=== PATIENT | female | born 1950 | race Caucasian/White ===

== ENCOUNTER 2017-04-01 09:52 | Outpatient (RCR) | payer MEDICARE ==
[~2017-04-01] VITALS: Ht 162.6 cm; Wt 56.7 kg
[~2017-04-01 09:52] MED LIST: ALPR.25T PO; ALPR.5T PO; ALPR0.5T7 PO; AMLO10TA PO; AMLO5TAB2 PO; AMOX-355 PO; ASP325T PO; ASPI-892 PO; AZIT500T2 PO; Amlodipine Besylate PO; CALC-408 PO; CHOL100011 PO; CLON1PAT15; CLON1PAT16 TD; CLON1PAT22 TD; ENLP10T PO; EPIN0.3P3 IM; EST.625T PO; ESTR0.5T PO; FAMO20TA5 PO; FENO145T2 PO; FENO145T20 PO; FLDR.1T PO; FLUO20CA25 PO; FLUT16SP22 NS; Fluconazole PO; GEMF600T3 PO; GLYB5TAB6 PO; HYDR-3812 PO; HYDR2TAB51; LINA5TAB PO; LIPA1CAP25 PO; LNS30CCR; LOSA1TAB20 PO; LOSA1TAB3 PO; METF500T4 PO; METO-370 PO; METO100T5 PO; MORP15TA PO; MTF500T PO; MTP50T PO; NYST1000; OMEG1CAP PO; ONDA4TAB11 PO; ONDA8TAB12 PO; OXC20TCR; OXYC-471 PO; PANCREATIC ENZYME; PARO10TA21 PO; POTA10TA10 PO; POTA10TA6 PO; POTA8CAP9 PO; PRD20T PO; PRED20TA PO; RIZA10TA25 PO; SENN-20 PO; SENN1TAB76; TRAJENTA; TRAM50TA2 PO
[2017-06-03] MEDS ORDERED: FLUT9.9S NSEACH (15:07)
[2017-06-03] MEDS ORDERED: AZIT250T12 PO (15:07)
== END 2017-06-30 | disposition home or self-care (01) ==
LOC: DSME 09:52
DX: E11.65 Type 2 diabetes mellitus with hyperglycemia (principal); E11.21 Type 2 diabetes mellitus with diabetic nephropathy; E66.9 Obesity, unspecified; I10 Essential (primary) hypertension

== ENCOUNTER 2017-06-03 12:54 | Emergency (ER) | payer MEDICARE ==
[~2017-06-03] VITALS: Ht 162.6 cm; Wt 56.7 kg
[2017-06-03 13:52] LABS: BASOPHILS % (AUTO) 0 % (0-10); EOSINOPHILS # (AUTO) 0.2 10^3/uL (0.0-0.3); EOSINOPHILS % (AUTO) 5 % (0-10); LYMPHOCYTES # (AUTO) 2.1 X 10^3 (1.0-4.0); LYMPHOCYTES % (AUTO) 41 % (12-44); MEAN CORPUSCULAR HEMOGLOBIN 27 PG (25-34); MEAN CORPUSCULAR HGB CONC 33 G/DL (32-36); MEAN CORPUSCULAR VOLUME 83 FL (80-99); MEAN PLATELET VOLUME 11.4 FL (7.4-10.4); MONOCYTES # (AUTO) 0.5 X 10^3 (0.0-1.0); MONOCYTES % (AUTO) 9 % (0-12); NEUTROPHILS # (AUTO) 2.2 X 10^3 (1.8-7.8); NEUTROPHILS % (AUTO) 44 % (42-75); PLATELET COUNT 174 10^3/uL (130-400); RED BLOOD COUNT 4.52 10^6/uL (4.35-5.85); RED CELL DISTRIBUTION WIDTH 14.9 % (10.0-14.5)
--- NOTE | 2017-06-03 13:53 | Diagnostic Imaging Report ---
PROCEDURE: US Carotid Duplex Bilateral. TECHNIQUE: Multiple real-time grayscale images were obtained over the carotid arteries in various projections bilaterally. Additional duplex Doppler and color Doppler images were also obtained. INDICATION: Left hand numbness, history of TIA. COMPARISON: 06/22/2012. DISCUSSION: Sonographic evaluation of the common and internal carotid arteries and bilateral vertebral arteries was performed with a linear transducer. Images were assessed for grayscale appearance, spectral and color Doppler blood flow. No significant plaque identified within either carotid bifurcation. Normal flow velocities are present within the bilateral internal and external carotid arteries. Normal antegrade flow within the bilateral vertebral arteries. IMPRESSION: 1. The bilateral carotid bifurcations remain widely patent, stable. Dictated by: Dictated on workstation # [id number]
[2017-06-03 13:56] LABS: BILIRUBIN,URINE NEGATIVE (NEGATIVE); KETONES,URINE NEGATIVE (NEGATIVE); LEUKOCYTE ESTERASE ,URINE 1+ (NEGATIVE); NITRITE,URINE NEGATIVE (NEGATIVE); PH,URINE 5 (5-9); PROTEIN,URINE NEGATIVE (NEGATIVE); UROBILINOGEN,URINE NORMAL (NORMAL)
--- NOTE | 2017-06-03 13:56 | ED Neurological Problem ---
General Chief Complaint: Neurological Problems Stated Complaint: LT HAND NUMB/UPPER LIP NUMB/SPEECH DIFF Nursing Triage Note: ARRIVED VIA AMB TO ROOM 07 WITH COMPLAINTS OF LEFT HAND AND LIP NUMBESS/ TINGLING STARTING X2 DAYS AGO. Nursing Sepsis Screen: No Definite Risk Source: patient, old records (Prior imaging reports reviewed) Exam Limitations: no limitations History of Present Illness Time seen by provider: 12:59 Initial Comments This pleasant 66-year-old lady presents to the emergency room with complaints of left hand numbness intermittently over the past 2 days and left upper lip numbness. Symptoms were mild on Wednesday, then improved yesterday, then worsened today. She has had some very subtle difficulty with word finding as well. Wednesday she also had a severe headache and some "wavy vision" peripherally. She reports having some headaches all summer that seem to be weather related. She has history of prior TIA and CVA as well as migraines. She takes aspirin 81 mg daily. She also has a prior history of hypothyroidism for which she took levothyroxin. This seems to have resolved and she no longer takes levothyroxin. Allergies and Home Medications Allergies Coded Allergies: canagliflozin (Verified Allergy, Severe, ANAPHYLAXIS, 07/22/15) iodine (Unverified Adverse Reaction, Severe, migraine headache, 07/11/10) lorazepam (Verified Adverse Reaction, Severe, ELEVATED BLOOD PRESSURE, ) zolpidem (Verified Adverse Reaction, Severe, SLEEP WALK, 07/22/15) codeine (Unverified Adverse Reaction, Mild, INCREASED ACTIVITY, 08/13/10) erythromycin base (Unverified Adverse Reaction, Mild, NAUSEA, 08/13/10) Heparin Analogues (Unverified Adverse Reaction, Unknown, 08/13/10) Home Medications Alprazolam 0.5 Mg Tablet, 0.5 MG PO HS, (Reported) Alprazolam 0.5 Mg Tablet, 0.25 MG PO AM, (Reported) TAKES 1/2 (0.5MG) TABLET Alprazolam 0.5 Mg Tablet, 0.5 MG PO DAILY PRN for ANXIETY, (Reported) TAKES 1/2 TABLET EVERY MORNING AND 1 TABLET AT BEDTIME, CAN TAKE AN ADDITIONAL TABLET DAILY NEEDED Amlodipine Besylate 5 Mg Tablet, 2.5 MG PO HS, (Reported) TAKES 1/2 (5MG) TABLET Amlodipine Besylate 5 Mg Tablet, 5 MG PO DAILY, (Reported) Azithromycin 250 Mg Tablet, 250 MG PO UD, #6 TAKE 2 TABLETS ON DAY ONE THEN TAKE 1 TABLET DAILY FOR FOUR MORE DAYS Prescribed by: SOPHIA CHANEL on 06/03/17 1507 Clonidine 1 Each Patch.tdwk, 0.3 MG TD WEEKLY ON WEDNESDAY, (Reported) Epinephrine 0.3 Mg/0.3 Ml Auto.injct, IM UD PRN for ANAPHYLAXIS, (Reported) Estradiol 0.5 Mg Tablet, 0.5 MG PO DAILY, (Reported) Fludrocortisone Acetate 0.1 Mg Tab, 0.1 MG PO BID, #60 Ref 3 Prescribed by: DECLAN SANTOS on 07/29/15 0910 Fluoxetine HCl 20 Mg Capsule, 20 MG PO DAILY@ 1200, (Reported) Fluticasone Propionate 9.9 Ml Bosler.susp, 2 SPR NSEACH DAILY, #1 Ref 5 Prescribed by: SOPHIA CHANEL on 06/03/17 1507 Gemfibrozil 600 Mg Tablet, 600 MG PO BIDAC, #60 Ref 5 Prescribed by: DECLAN SANTOS on 07/29/15 0910 Glyburide 5 Mg Tablet, 2.5 MG PO AM & 1200, (Reported) Glyburide 5 Mg Tablet, 5 MG PO WITH EVENING MEAL, (Reported) Hydrocodone/Acetaminophen 1 Each Tablet, 1-2 EACH PO Q6H PRN for PAIN, #15 Prescribed by: JENNY SUN on 05/22/16 0009 Lipase/Protease/Amylase 1 Each Capsule.dr, 10,000 UNIT PO QID, (Reported) Metformin Hcl 500 Mg Tablet, 1,000 MG PO AM & EVENING, (Reported) Metformin Hcl 500 Mg Tablet, 500 MG PO DAILY @ 1200, (Reported) Metoprolol Succinate 100 Mg Tab.sr.24h, 50 MG PO BID, (Reported) TAKES 1/2 (100MG) TABLET Morphine Sulfate 15 Mg Tablet, 7.5 MG PO Q3H PRN for ABDOMINAL PAIN, #90 Ref 0 Prescribed by: DECLAN SANTOS on 07/29/15 0910 [place]-3 Acid Ethyl Esters 1 Gm Capsule, 1 GM PO QID, #20 Ref 0 Prescribed by: DECLAN SANTOS on 07/29/15 0910 Ondansetron 4 Mg Tab.rapdis, 4 MG PO Q6H PRN for NAUSEA/VOMITING, #8 Prescribed by: JENNY SUN on 05/22/168 Ondansetron HCl 8 Mg Tablet, 8 MG PO Q8H PRN for NAUSEA, (Reported) Potassium Chloride 10 Meq Tablet.er, 10 MEQ PO NOON & EVENING, (Reported) Prednisone 20 Mg Tab, 40 MG PO DAILY, #10 Ref 0 Prescribed by: JENNY SUN on 05/22/168 Sennosides/Docusate Sodium 1 Each Tablet, 1 EA PO DAILY, #30 Ref 2 Prescribed by: DECLAN SANTOS on 07/29/15 0910 Constitutional: no symptoms reported Eyes: See HPI Ears, Nose, Mouth, Throat: see HPI Respiratory: no symptoms reported Cardiovascular: no symptoms reported Gastrointestinal: no symptoms reported Genitourinary: no symptoms reported : No Musculoskeletal: no symptoms reported Skin: no symptoms reported Psychiatric/Neurological: See HPI Endocrine: No Symptoms Reported Hematologic/Lymphatic: No Symptoms Reported Past Ecbwqrv-Zjdjbo-Bistuj Hx Patient Social History Alcohol Use: Denies Use Recreational Drug Use: No Smoking Status: Never a Smoker Recent Foreign Travel: No Contact w/Someone Who Travel: No Recent Infectious Disease Expo: No Recent Hopitalizations: Yes Immunizations Up To Date Tetanus Booster (TDap): More than 5yrs Date of Pneumonia Vaccine: Aug 01, 2012 Seasonal Allergies Seasonal Allergies: Yes Surgeries HX Surgeries: Yes (HYSTERECTOMY, thoracentesis, gallbladder, ) Surgeries: Appendectomy, Gallbladder, Hysterectomy, Pancreatic Respiratory Hx Respiratory Disorders: No Cardiovascular Hx Cardiac Disorders: Yes Cardiac Disorders: Hypertension Neurological Hx Neurological Disorders: Yes Neurological Disorders: Headaches /Migraines, Stroke, TIA 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 System Hx 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 Disorders: No 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 Genitourinary Hx Genitourinary Disorders: No Genitourinary Disorders: Bladder Infection Gastrointestinal Hx Gastrointestinal Disorders: Yes Gastrointestinal Disorders: Pancreatitis Musculoskeletal Hx Musculoskeletal Disorders: No Endocrine Hx Endocrine Disorders: Yes Endocrine Disorders: Diabetes, Non-Insulin dep HEENT HX ENT Disorders: No Cancer Hx Cancer: No Psychosocial Hx Psychiatric Problems: Yes Behavioral Health Disorders: Anxiety Integumentary HX Skin/Integumentary Disorder: No Blood Transfusions Hx Blood Disorders: No Family Medical History Significant Family History: No Pertinent Family Hx, CVA Family Medial History: Physical Exam Vital Signs Vital Sign - Last 12Hours 06/03/17 13:02 Temp 98.0 Pulse 80 Resp 16 B/P (MAP) 178/82 Pulse Ox 100 O2 Delivery Room Air Capillary Refill : Less Than 3 Seconds General Appearance: WD/WN, no apparent distress HEENT: PERRL/EOMI, normal ENT inspection, TMs normal, pharynx normal Neck: supple, normal inspection, No carotid bruit Respiratory: lungs clear, normal breath sounds, no respiratory distress, no accessory muscle use Cardiovascular: regular rate, rhythm, no edema, no murmur Gastrointestinal: normal bowel sounds, non tender, soft Extremities: normal inspection, no pedal edema Neurologic/Psychiatric: corporate director II-XII nml as tested, alert, normal mood/affect, oriented x 3, No motor weakness, sensory deficit (Slight sensory deficit in the left fingers) Crainal Nerves: normal hearing, normal speech, PERRL Coordination/Gait: normal finger to nose, normal gait Motor/Sensory: no motor deficit, sensory deficit (Slight in the left fingers) Skin: normal color, warm/dry Progress/Results/Core Measures Results/Orders Lab Results Laboratory Tests Test 06/03/17 13:45 06/03/17 13:50 Range/Units White Blood Count 5.0 4.3-11.0 10^3/uL Red Blood Count 4.52 4.35-5.85 10^6/uL Hemoglobin 12.3 11.5-16.0 G/DL Hematocrit 37 35-52 % Mean Corpuscular Volume 83 80-99 FL Mean Corpuscular Hemoglobin 27 25-34 PG Mean Corpuscular Hemoglobin Concent 33 32-36 G/DL Red Cell Distribution Width 14.9 H 10.0-14.5 % Platelet Count 174 130-400 10^3/uL Mean Platelet Volume 11.4 H 7.4-10.4 FL Neutrophils (%) (Auto) 44 42-75 % Lymphocytes (%) (Auto) 41 12-44 % Monocytes (%) (Auto) 9 0-12 % Eosinophils (%) (Auto) 5 0-10 % Basophils (%) (Auto) 0 0-10 % Neutrophils # (Auto) 2.2 1.8-7.8 X 10^3 Lymphocytes # (Auto) 2.1 1.0-4.0 X 10^3 Monocytes # (Auto) 0.5 0.0-1.0 X 10^3 Eosinophils # (Auto) 0.2 0.0-0.3 10^3/uL Basophils # (Auto) 0.0 0.0-0.1 10^3/uL Sodium Level 140 135-145 MMOL/L Potassium Level 3.7 3.6-5.0 MMOL/L Chloride Level 101 98-107 MMOL/L Carbon Dioxide Level 24 21-32 MMOL/L Anion Gap 15 H 5-14 MMOL/L Blood Urea Nitrogen 18 7-18 MG/DL Creatinine 0.84 0.60-1.30 MG/DL Estimat Glomerular Filtration Rate > 60 BUN/Creatinine Ratio 21 Glucose Level 144 H 70-105 MG/DL Calcium Level 9.4 8.5-10.1 MG/DL Magnesium Level 1.1 L 1.8-2.4 MG/DL Total Bilirubin 0.3 0.1-1.0 MG/DL Aspartate Amino Transf (AST/SGOT) 22 5-34 U/L Alanine Aminotransferase (ALT/SGPT) 31 0-55 U/L Alkaline Phosphatase 82 40-136 U/L Total Protein 6.9 6.4-8.2 GM/DL Albumin 4.0 3.2-4.5 GM/DL TSH [place] Testing 0.70 0.35-4.94 UIU/ML Urine Color YELLOW Urine Clarity CLEAR Urine pH 5 5-9 Urine Specific [place] 1.010 L 1.016-1.022 Urine Protein NEGATIVE NEGATIVE Urine Glucose (UA) NEGATIVE NEGATIVE Urine Ketones NEGATIVE NEGATIVE Urine Nitrite NEGATIVE NEGATIVE Urine Bilirubin NEGATIVE NEGATIVE Urine Urobilinogen NORMAL NORMAL MG/DL Urine Leukocyte Esterase 1+ H NEGATIVE Urine RBC (Auto) NEGATIVE NEGATIVE Urine RBC NONE /HPF Urine WBC 0-2 /HPF Urine Squamous Epithelial Cells 5-10 /HPF Urine Crystals PRESENT H /LPF Urine Calcium Oxalate Crystals RARE H /LPF Urine Bacteria TRACE /HPF Urine Casts PRESENT /LPF Urine Hyaline Casts 5-10 H /LPF Urine Mucus SMALL H /LPF Urine Culture Indicated YES Micro Results Microbiology 06/03/17 Urine Culture - Preliminary, Resulted My Orders Orders - SOPHIA MONTE MD Cbc With Automated Diff (06/03/17 13:24) Comprehensive Metabolic Panel (06/03/17 13:24) Magnesium (06/03/17 13:24) Thyroid Analyzer (06/03/17 13:24) Ua Culture If Indicated (06/03/17 13:24) Saline Lock/Iv-Start (06/03/17 13:24) Us Carotid Hector Complete [id number] (06/03/17 13:24) Ct Head Wo (06/03/17 13:35) Urine Culture (06/03/17 13:50) Vital Signs/I&O Vital Sign - Last 12Hours 06/03/17 06/03/17 13:02 15:25 Temp 98.0 Pulse 80 78 Resp 16 16 B/P (MAP) 178/82 Pulse Ox 100 98 O2 Delivery Room Air Blood Pressure Mean: 114 Progress Note #1: Progress Note Labs were unremarkable. I discussed further workup with the patient including doing carotid ultrasound and CT of the head versus MRI. Patient has anxiety issues with MRI and wishes to do a CT and carotid ultrasound. Progress Note #2: Progress Note Sphenoid sinusitis was discovered but no evidence of intracranial hemorrhage or CVA. Carotid arteries were patent. Patient would like a prescription for azithromycin. Although I feel she needs a more prolonged course of therapy, she is very leery to use any other antibiotic due to intolerance of many medications. She knows she tolerates azithromycin. Diagnostic Imaging Diagonstic Imaging: Ultrasound Plain Films/CT/US/NM/MRI: other (Carotid arteries) Comments NAME: [facility] REC#: [id number] PT STATUS: REG ER : 1950 PHYSICIAN: SOPHIA MONTE MD ADMIT DATE: 06/03/17/ER Draft Date of Exam:06/03/17 US CAROTID HECTOR COMPLETE [id number] PROCEDURE: US Carotid Duplex Bilateral. TECHNIQUE: Multiple real-time grayscale images were obtained over the carotid arteries in various projections bilaterally. Additional duplex Doppler and color Doppler images were also obtained. INDICATION: Left hand numbness, history of TIA. COMPARISON: 06/22/2012. DISCUSSION: Sonographic evaluation of the common and internal carotid arteries and bilateral vertebral arteries was performed with a linear transducer. Images were assessed for grayscale appearance, spectral and color Doppler blood flow. No significant plaque identified within either carotid bifurcation. Normal flow velocities are present within the bilateral internal and external carotid arteries. Normal antegrade flow within the bilateral vertebral arteries. IMPRESSION: 1. The bilateral carotid bifurcations remain widely patent, stable. Dictated on workstation # [id number] Dict: 06/03/17 1351 Trans: 06/03/17 1352 HOLLIS [id number] Interpreted by: JESSE JONES MD Diagonstic Imaging: CT Plain Films/CT/US/NM/MRI: head Comments NAME: [facility] REC#: [id number] PT STATUS: DEP ER : 1950 PHYSICIAN: SOPHIA MONTE MD ADMIT DATE: 06/03/17/ER Signed Date of Exam: 06/03/17 CT HEAD WO PROCEDURE: CT head without contrast. TECHNIQUE: Multiple contiguous axial images were obtained through the brain without the use of intravenous contrast. INDICATION: Left hand numbness. FINDINGS: There is no intracranial hemorrhage, edema or mass effect. There is a periventricular and deep white matter hypodensities compatible with chronic microvascular ischemic changes. There is no extra-axial fluid collection seen. No hydrocephalus. The calvarium appears unremarkable. The left sphenoidal sinus demonstrates complete opacification. IMPRESSION: 1. No intracranial hemorrhage. Chronic ischemic changes. 2. Near complete opacification of the left sphenoidal sinus suggestive of sinusitis. Dictated by: Dictated on workstation # [id number] Dict: 06/03/17 1409 Trans: 06/03/17 1614 Interpreted by: MANDY RUIZ MD Electronically signed by: MANDY RUIZ MD 06/03/17 1614 Departure Impression Impression: Primary Impression: Paresthesia of left upper extremity Additional Impressions: Facial paresthesia Sphenoidal sinusitis Qualified Codes: J01.30 - Acute sphenoidal sinusitis, unspecified Hypertension Qualified Codes: I10 - Essential (primary) hypertension Disposition: 01 HOME, SELF-CARE Condition: Stable Departure-Patient Inst. Decision time for Depature: 14:55 Referrals: DECLAN SANTOS MD (PCP/Family) Primary Care Physician Patient Instructions: Paresthesias (DC), Sinusitis in Adults Add. Discharge Instructions: Follow-up with Dr. Santos as soon as possible. You may need a more prolonged course of antibiotic therapy for your sinusitis with a different antibiotic such as doxycycline or amoxicillin. If you're symptoms persist or worsen, consider discussing MRI of the brain and cervical spine with Dr. Santos. Return to care promptly if symptoms acutely worsen. If you develop symptoms suspicious of stroke, present to the emergency room immediately or call 911 as ability to treat is time dependent. All discharge instructions reviewed with patient and/or family. Voiced understanding. Scripts Fluticasone Propionate (Flonase Allergy Relief) 9.9 Ml Bosler.susp 2 SPR NSEACH DAILY, #1 SPRAY 5 Refills Prov: SOPHIA MONTE MD 06/03/17 Azithromycin (Azithromycin) 250 Mg Tablet 250 MG PO UD, #6 TAB TAKE 2 TABLETS ON DAY ONE THEN TAKE 1 TABLET DAILY FOR FOUR MORE DAYS Prov: SOPHIA MONTE MD 06/03/17 Copy Copies To 1: DECLAN SANTOS MD, JOSHUA T MD Jun 03, 2017 13:56
[2017-06-03 14:10] LABS: ALANINE AMINOTRANSFERASE 31 U/L (0-55); ANION GAP 15 MMOL/L (5-14); ASPARTATE AMINO TRANSFERASE 22 U/L (5-34); BILIRUBIN,TOTAL 0.3 MG/DL (0.1-1.0); BLOOD UREA NITROGEN 18 MG/DL (7-18); BUN/CREATININE RATIO 21; CALCIUM 9.4 MG/DL (8.5-10.1); CARBON DIOXIDE 24 MMOL/L (21-32); CHLORIDE 101 MMOL/L (98-107); CREATININE SERUM 0.84 MG/DL (0.60-1.30); GFR ESTIMATED > 60; GLUCOSE 144 MG/DL (70-105); MAGNESIUM 1.1 MG/DL (1.8-2.4); POTASSIUM 3.7 MMOL/L (3.6-5.0); SODIUM 140 MMOL/L (135-145); TOTAL PROTEIN 6.9 GM/DL (6.4-8.2)
[2017-06-03 14:11] LABS: CALCIUM OXALATE CRYSTALS,UR RARE /LPF; WBC,URINE 0-2 /HPF
--- NOTE | 2017-06-03 14:21 | Diagnostic Imaging Report ---
PROCEDURE: CT head without contrast. TECHNIQUE: Multiple contiguous axial images were obtained through the brain without the use of intravenous contrast. INDICATION: Left hand numbness. FINDINGS: There is no intracranial hemorrhage, edema or mass effect. There is a periventricular and deep white matter hypodensities compatible with chronic microvascular ischemic changes. There is no extra-axial fluid collection seen. No hydrocephalus. The calvarium appears unremarkable. The left sphenoidal sinus demonstrates complete opacification. IMPRESSION: 1. No intracranial hemorrhage. Chronic ischemic changes. 2. Near complete opacification of the left sphenoidal sinus suggestive of sinusitis. Dictated by: Dictated on workstation # [id number]
[2017-06-03] MEDS ORDERED: FLUT9.9S NSEACH (15:07)
[2017-06-03] MEDS ORDERED: AZIT250T12 PO (15:07)
[2017-06-03 15:25] VITALS: BP 194/95
== END 2017-06-03 15:25 | disposition home or self-care (01) ==
LOC: EDUNIT# 12:54 → ER 12:56
DX: R20.2 Paresthesia of skin (principal); J01.30 Acute sphenoidal sinusitis, unspecified; I10 Essential (primary) hypertension; E11.9 Type 2 diabetes mellitus without complications; Z79.84 Long term (current) use of oral hypoglycemic drugs; Z79.899 Other long term (current) drug therapy
CPT/HCPCS: 36415; 70450; 80053; 81000; 83735; 84443; 85025; 87088; 93880

== ENCOUNTER → 2017-06-21 | Outpatient (CLI) | payer MEDICARE ==
[~2017-06-21] MED LIST changes: +AZIT250T5 PO; +FLUT9.9S NSEACH; +METO-272 PO; -METO-370 PO
--- NOTE | 2017-06-21 17:17 | Diagnostic Imaging Report ---
EXAMINATION: Paranasal sinuses. INDICATION: Chronic sinusitis. FINDINGS: There are no previous paranasal sinus exams available for comparison. The CT head exam performed on 06/03/2017 did note severe left sphenoid sinusitis. That finding is difficult to appreciate on this exam. The frontal and maxillary sinuses are clear and well aerated. There is no fracture or acute bony abnormality identified. As noted on the CT head exam, there is hyperostosis frontalis. IMPRESSION: 1. The severe left sphenoid sinusitis seen on the CT exam is difficult to appreciate on this exam. The maxillary and frontal sinuses where visualized are clear. 2. If further imaging is desired, then CT of the sinuses would be recommended. Dictated by: Dictated on workstation # [id number]
== END ==
LOC: RAD 15:15
PROVIDERS: ATTEND Nurse Practitioner Family
DX: J32.3 Chronic sphenoidal sinusitis (principal)
CPT/HCPCS: 70220

== ENCOUNTER 2017-12-26 14:20 | Inpatient (IN) | payer MEDICARE ==
[~2017-12-26] VITALS: Ht 162.6 cm; Wt 57.2 kg
[~2017-12-26 14:20] MED LIST changes: +ACHD5005 PO; +AZIT250T12 PO; -AZIT250T5 PO; -HYDR-3812 PO; -METO-272 PO; +METO-370 PO
--- OUTSIDE RECORDS SUMMARY | 2017-12-26 14:29 | XMS REPORT | Continuity of Care Document ---
Author Author [facility] Organization [facility] Address Unknown Phone Unavailable Allergies Active Description Code Type Severity Reaction Onset Reported/Identified Relationship to Patient Clinical Status Yes iodine [id number] Drug Allergy Severe migraine headac 07/11/2010 Yes lorazepam [id number] Drug Allergy Severe N/A 08/12/2010 Yes zolpidem [id number] Drug Allergy Severe N/A 08/12/2010 Yes codeine [id number] Drug Allergy Mild INCREASED ACTIV 08/13/2010 Yes erythromycin base [id number] Drug Allergy Mild NAUSEA 08/13/2010 Yes Heparin Analogues [id number] Drug Allergy Unknown N/A 08/13/2010 Yes canagliflozin [id number] Drug Allergy Unknown ANAPHYLAXIS 07/21/2015 Yes canagliflozin [id number] Drug Allergy Severe ANAPHYLAXIS 07/22/2015 Yes lorazepam [id number] Drug Allergy Severe ELEVATED BLOOD 07/22/2015 Yes zolpidem [id number] Drug Allergy Severe SLEEP WALK 07/22/2015 Medications There is no data. Problems Date Dx Coded Attending Type Code Diagnosis Diagnosed By 07/24/2010 Ot 250.00 07/24/2010 Ot 272.1 07/24/2010 Ot 275.2 07/24/2010 Ot 276.1 07/24/2010 Ot 276.8 07/24/2010 Ot 285.9 07/24/2010 Ot 287.5 07/24/2010 Ot 401.9 07/24/2010 Ot 486 07/24/2010 Ot 518.81 07/24/2010 Ot 560.1 07/24/2010 Ot 577.0 07/24/2010 Ot 593.9 07/24/2010 Ot V45.77 07/24/2010 Ot V57.1 07/24/2010 Ot V57.21 08/18/2010 Ot 041.04 08/18/2010 Ot 250.00 08/18/2010 Ot 276.51 08/18/2010 Ot 276.8 08/18/2010 Ot 311 08/18/2010 Ot 401.9 08/18/2010 Ot 575.0 08/18/2010 Ot 577.0 08/18/2010 Ot 599.0 06/22/2012 Ot 250.00 06/22/2012 Ot 272.4 06/22/2012 Ot 401.9 06/22/2012 Ot 434.91 06/22/2012 Ot V03.82 03/20/2015 Ot 276.8 03/20/2015 Ot 285.9 03/20/2015 Ot 575.10 03/20/2015 Ot 577.0 03/20/2015 Ot 787.01 03/20/2015 Ot 784.0 03/24/2015 DANIELLE PORTER, DECLAN Castaneda Ot 250.00 DIAB EMIL WO COMPL, TYPE II OR UNSPEC TY 03/24/2015 DECLAN SANTOS MD Ot 272.4 HYPERLIPIDEMIA NEC/NOS 03/24/2015 DECLAN SANTOS MD Ot 276.1 HYPOSMOLALITY 03/24/2015 DECLAN SANTOS MD Ot 276.8 HYPOPOTASSEMIA 03/24/2015 DECLAN SANTOS MD Ot 300.00 ANXIETY STATE NOS 03/24/2015 DECLAN SANTOS MD Ot 401.9 HYPERTENSION NOS 03/24/2015 DECLAN SANTOS MD Ot 473.2 CHR ETHMOIDAL SINUSITIS 03/24/2015 DECLAN SANTOS MD Ot 535.00 ACUTE GASTRITIS, W/O MENTION OF HEMORRHA 03/24/2015 DECLAN SANTOS MD Ot 573.0 CHR PASSIV CONGEST LIVER 03/24/2015 DECLAN SANTOS MD Ot 577.0 ACUTE PANCREATITIS 03/24/2015 DECLAN SANTOS MD Ot 577.2 PANCREAT CYST/PSEUDOCYST 03/24/2015 DECLAN SANTOS MD Ot 577.8 PANCREATIC DISEASE NEC 03/24/2015 DECLAN SANTOS MD Ot V12.54 PERSONAL HX OF TIA, CEREBRAL INFARCTION 04/01/2015 TATE PORTER, SHONDA Raymundo Ot 577.2 04/01/2015 TATE PORTER, SHONDA Raymundo Ot 577.2 04/01/2015 TATE PORTER, SHONDA Raymundo Ot 577.2 04/03/2015 TATE PORTER, SHONDA Raymundo Ot 577.2 04/03/2015 SHONDA YBARRA MD Ot 577.2 04/03/2015 TATE PORTER, SHONDA Raymundo Ot 577.2 04/04/2015 TATE PORTER, SHONDA Raymundo Ot 577.2 04/09/2015 TATE PORTER, SHONDA Raymundo Ot 577.2 04/24/2015 TATE PORTER, SHONDA Raymundo Ot 577.2 04/24/2015 TATE PORTER, SHONDA Raymundo Ot 577.2 04/26/2015 TATE PORTER, SHONDA Raymundo Ot 577.2 04/26/2015 TATE PORTER, SHONDA Raymundo Ot 577.2 05/22/2015 DECLAN SANTOS MD Ot 722.52 05/23/2015 DECLAN SANTOS MD Ot 722.52 05/30/2015 ERICA OSBORNE Ot 787.20 DYSPHAGIA, UNSPECIFIED 05/30/2015 ERICA OSBORNE Ot 995.1 ANGIONEUROTIC EDEMA 06/03/2015 DECLAN SANTOS MD Ot 250.02 DIAB EMIL WO COMPL, TYPE II OR UNSPEC TY 06/03/2015 DECLAN SANTOS MD Ot 272.4 HYPERLIPIDEMIA NEC/NOS 06/03/2015 DECLAN SANTOS MD Ot 300.00 ANXIETY STATE NOS 06/03/2015 DECLAN SANTOS MD Ot 401.9 HYPERTENSION NOS 06/03/2015 DECLAN SANTOS MD Ot 995.0 OTHER ANAPHYLACTIC REACTION 06/03/2015 DECLAN SANTOS MD Ot E849.0 ACCIDENT IN HOME 06/03/2015 DECLAN SANTOS MD Ot E932.3 ADV EFF INSULIN/ANTIDIAB 07/15/2015 NADEEM ABARCA DO Ot 272.4 HYPERLIPIDEMIA NEC/NOS 07/15/2015 NADEEM ABARCA DO Ot 285.9 ANEMIA NOS 07/15/2015 NADEEM ABARCA DO Ot 287.5 THROMBOCYTOPENIA NOS 07/15/2015 NADEEM ABARCA DO Ot 401.9 HYPERTENSION NOS 07/15/2015 NADEEM ABARCA DO Ot 784.0 HEADACHE 07/29/2015 DECLAN SANTOS MD Ot 250.00 DIAB EMIL WO COMPL, TYPE II OR UNSPEC TY 07/29/2015 DECLAN SANTOS MD Ot 266.2 B-COMPLEX DEFIC NEC 07/29/2015 DECLAN SANTOS MD Ot 272.0 PURE HYPERCHOLESTEROLEM 07/29/2015 DANIELLE PORTER, DECLAN Castaneda Ot 272.1 PURE HYPERGLYCERIDEMIA 07/29/2015 DECLAN SANTOS MD Ot 272.4 HYPERLIPIDEMIA NEC/NOS 07/29/2015 DECLAN SANTOS MD Ot 276.8 HYPOPOTASSEMIA 07/29/2015 DECLAN SANTOS MD Ot 285.9 ANEMIA NOS 07/29/2015 DECLAN SANTOS MD Ot 287.5 THROMBOCYTOPENIA NOS 07/29/2015 DECLAN SANTOS MD Ot 298.9 PSYCHOSIS NOS 07/29/2015 DECLAN SANTOS MD Ot 401.9 HYPERTENSION NOS 07/29/2015 DECLAN SANTOS MD Ot 473.2 CHR ETHMOIDAL SINUSITIS 07/29/2015 DECLAN SANTOS MD Ot 473.3 CHR SPHENOIDAL SINUSITIS 07/29/2015 DECLAN SANTOS MD Ot 577.0 ACUTE PANCREATITIS 07/29/2015 DECLAN SANTOS MD Ot 577.2 PANCREAT CYST/PSEUDOCYST 07/29/2015 DECLAN SANTOS MD Ot 784.0 HEADACHE 07/29/2015 DECLAN SANTOS MD Ot V12.54 PERSONAL HX OF TIA, CEREBRAL INFARCTION 07/29/2015 DECLAN SANTOS MD Ot V12.79 PERSONAL HISTORY OTH SPEC DIGESTIVE SYST 09/05/2015 TATE PORTER, SHONDA Raymundo Ot 577.2 09/05/2015 TATE PORTER, SHONDA Raymundo Ot 577.2 09/05/2015 DECLAN SANTOS MD Ot 722.52 09/30/2015 ROSIE RAMOS MD Ot E03.9 09/30/2015 ROSIE RAMOS MD Ot E78.2 09/30/2015 ROSIE RAMOS MD Ot I10 09/30/2015 ROSIE RAMOS MD Ot I63.9 10/03/2015 ROSIE RAMOS MD Ot E03.9 10/03/2015 ROSIE RAMOS MD Ot E78.2 10/03/2015 ROSIE RAMOS MD Ot I10 10/03/2015 ROSIE RAMOS MD Ot I63.9 05/22/2016 TATE PORTER, SHONDA Raymundo Ot 577.2 PANCREAT CYST/PSEUDOCYST 05/22/2016 TATE PORTER, SHONDA Raymundo Ot 577.2 PANCREAT CYST/PSEUDOCYST 05/22/2016 DANIELLE PORTER, DECLAN Castaneda Ot 722.52 LUMB/LUMBOSAC DISC DEGEN 05/22/2016 RACHEL PORTER, ROSIE Sultana Ot E03.9 HYPOTHYROIDISM, UNSPECIFIED 05/22/2016 RACHEL PORTER, ROSIE Sultana Ot E78.2 MIXED HYPERLIPIDEMIA 05/22/2016 ROSIE RAMOS MD Ot I10 ESSENTIAL (PRIMARY) HYPERTENSION 05/22/2016 RACHEL PORTER, ROSIE Sultana Ot I63.9 CEREBRAL INFARCTION, UNSPECIFIED 05/22/2016 CORINNE PORTER, JENNY Castaneda Ot M54.16 RADICULOPATHY, LUMBAR REGION 05/22/2016 JENNY SUN MD Ot M54.5 LOW BACK PAIN 05/22/2016 JENNY SUN MD Ot M54.16 RADICULOPATHY, LUMBAR REGION 05/22/2016 JENNY SUN MD Ot M54.5 LOW BACK PAIN 06/24/2016 JENNY SUN MD Ot M54.16 RADICULOPATHY, LUMBAR REGION 06/24/2016 JENNY SUN MD Ot M54.5 LOW BACK PAIN 04/02/2017 OTHER, UNLISTED Ot E11.21 TYPE 2 DIABETES MELLITUS WITH DIABETIC N 04/02/2017 OTHER, UNLISTED Ot E11.65 TYPE 2 DIABETES MELLITUS WITH HYPERGLYCE 04/02/2017 OTHER, UNLISTED Ot E66.9 OBESITY, UNSPECIFIED 04/02/2017 OTHER, UNLISTED Ot I10 ESSENTIAL (PRIMARY) HYPERTENSION 06/03/2017 SOPHIA MONTE MD Ot E11.9 TYPE 2 DIABETES MELLITUS WITHOUT COMPLIC 06/03/2017 SOPHIA MONTE MD, Ot I10 ESSENTIAL (PRIMARY) HYPERTENSION 06/03/2017 SOPHIA MONTE MD Ot J01.30 ACUTE SPHENOIDAL SINUSITIS, UNSPECIFIED 06/03/2017 SOPHIA MONTE MD Ot R20.2 PARESTHESIA OF SKIN 06/03/2017 SOPHIA MONTE MD Ot Z79.84 SOLUTIONS ARCHITECT (CURRENT) USE OF ORAL HYPOGLYC 06/03/2017 SOPHIA MONTE MD Ot Z79.899 OTHER [facility] (CURRENT) DRUG THERAPY 06/16/2017 OTHER, UNLISTED Ot E11.21 TYPE 2 DIABETES MELLITUS WITH DIABETIC N 06/16/2017 OTHER, UNLISTED Ot E11.65 TYPE 2 DIABETES MELLITUS WITH HYPERGLYCE 06/16/2017 OTHER, UNLISTED Ot E66.9 OBESITY, UNSPECIFIED 06/16/2017 OTHER, UNLISTED Ot I10 ESSENTIAL (PRIMARY) HYPERTENSION 06/22/2017 PAULIE MACKENZIE APRN Ot 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 06/30/2017 OTHER, UNLISTED Ot E11.21 TYPE 2 DIABETES MELLITUS WITH DIABETIC N 06/30/2017 OTHER, UNLISTED Ot E11.65 TYPE 2 DIABETES MELLITUS WITH HYPERGLYCE 06/30/2017 OTHER, UNLISTED Ot E66.9 OBESITY, UNSPECIFIED 06/30/2017 OTHER, UNLISTED Ot I10 ESSENTIAL (PRIMARY) HYPERTENSION 07/02/2017 OTHER, UNLISTED Ot E11.21 TYPE 2 DIABETES MELLITUS WITH DIABETIC N 07/02/2017 OTHER, UNLISTED Ot E11.65 TYPE 2 DIABETES MELLITUS WITH HYPERGLYCE 07/02/2017 OTHER, UNLISTED Ot E66.9 OBESITY, UNSPECIFIED 07/02/2017 OTHER, UNLISTED Ot I10 ESSENTIAL (PRIMARY) HYPERTENSION 07/13/2017 PAULIE MACKENZIE APRN Ot 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 Results Test Result Range Complete blood count (CBC) with automated white blood cell (WBC) differential - 06/03/17 13:45 Blood leukocytes automated count (number/volume) 5.0 10*3/uL 4.3-11.0 Blood erythrocytes automated count (number/volume) 4.52 10*6/uL 4.35-5.85 Venous blood hemoglobin measurement (mass/volume) 12.3 g/dL 11.5-16.0 Blood hematocrit (volume fraction) 37 % 35-52 Automated erythrocyte mean corpuscular volume 83 [foz_us] 80-99 Automated erythrocyte mean corpuscular hemoglobin (mass per erythrocyte) 27 pg 25-34 Automated erythrocyte mean corpuscular hemoglobin concentration measurement ( mass/volume) 33 g/dL 32-36 Automated erythrocyte distribution width ratio 14.9 % 10.0-14.5 Automated blood platelet count (count/volume) 174 10*3/uL 130-400 Automated blood platelet mean volume measurement 11.4 [foz_us] 7.4-10.4 Automated blood neutrophils/100 leukocytes 44 % 42-75 Automated blood lymphocytes/100 leukocytes 41 % 12-44 Blood monocytes/100 leukocytes 9 % 0-12 Automated blood eosinophils/100 leukocytes 5 % 0-10 Automated blood basophils/100 leukocytes 0 % 0-10 Blood neutrophils automated count (number/volume) 2.2 10*3 1.8-7.8 Blood lymphocytes automated count (number/volume) 2.1 10*3 1.0-4.0 Blood monocytes automated count (number/volume) 0.5 10*3 0.0-1.0 Automated eosinophil count 0.2 10*3/uL 0.0-0.3 Automated blood basophil count (count/volume) 0.0 10*3/uL 0.0-0.1 Comprehensive metabolic panel - 06/03/17 13:45 Serum or plasma sodium measurement (moles/volume) 140 mmol/L 135-145 Serum or plasma potassium measurement (moles/volume) 3.7 mmol/L 3.6-5.0 Serum or plasma chloride measurement (moles/volume) 101 mmol/L 98-107 Carbon dioxide 24 mmol/L 21-32 Serum or plasma anion gap determination (moles/volume) 15 mmol/L 5-14 Serum or plasma urea nitrogen measurement (mass/volume) 18 mg/dL 7-18 Serum or plasma creatinine measurement (mass/volume) 0.84 mg/dL 0.60-1.30 Serum or plasma urea nitrogen/creatinine mass ratio 21 NRG Serum or plasma creatinine measurement with calculation of estimated glomerular filtration rate > NRG Serum or plasma glucose measurement (mass/volume) 144 mg/dL 70-105 Serum or plasma calcium measurement (mass/volume) 9.4 mg/dL 8.5-10.1 Serum or plasma total bilirubin measurement (mass/volume) 0.3 mg/dL 0.1-1.0 Serum or plasma alkaline phosphatase measurement (enzymatic activity/volume) 82 U/L 40-136 Serum or plasma aspartate aminotransferase measurement (enzymatic activity/ volume) 22 U/L 5-34 Serum or plasma alanine aminotransferase measurement (enzymatic activity/volume ) 31 U/L 0-55 Serum or plasma protein measurement (mass/volume) 6.9 g/dL 6.4-8.2 Serum or plasma albumin measurement (mass/volume) 4.0 g/dL 3.2-4.5 Magnesium - 06/03/17 13:45 Magnesium 1.1 mg/dL 1.8-2.4 Serum or plasma thyrotropin measurement by detection limit <=0.05 miu/l (units/ volume) - 06/03/17 13:45 Serum or plasma thyrotropin measurement by detection limit <=0.05 miu/l (units/ volume) 0.70 u[iU]/mL 0.35-4.94 Complete urinalysis with reflex to culture - 06/03/17 13:50 Urine color determination YELLOW NRG Urine clarity determination CLEAR NRG Urine pH measurement by test strip 5 5-9 Specific gravity of urine by test strip 1.010 1.016- 1.022 Urine protein assay by test strip, semi-quantitative NEGATIVE NEGATIVE Urine glucose detection by automated test strip NEGATIVE NEGATIVE Erythrocytes detection in urine sediment by light microscopy NEGATIVE NEGATIVE Urine ketones detection by automated test strip NEGATIVE NEGATIVE Urine nitrite detection by test strip NEGATIVE NEGATIVE Urine total bilirubin detection by test strip NEGATIVE NEGATIVE Urine urobilinogen measurement by automated test strip (mass/volume) NORMAL NORMAL Urine leukocyte esterase detection by dipstick 1+ NEGATIVE Automated urine sediment erythrocyte count by microscopy (number/high power field) NONE NRG Automated urine sediment leukocyte count by microscopy (number/high power field ) [HPF] NRG Bacteria detection in urine sediment by light microscopy TRACE NRG Squamous epithelial cells detection in urine sediment by light microscopy 5-10 NRG Crystals detection in urine sediment by light microscopy PRESENT NRG Casts detection in urine sediment by light microscopy PRESENT NRG Mucus detection in urine sediment by light microscopy SMALL NRG Complete urinalysis with reflex to culture YES NRG Hyaline casts detection in urine sediment by light microscopy 5-10 NRG Calcium oxalate crystals detection in urine sediment by light microscopy RARE NRG Bacterial urine culture - 06/03/17 13:50 URINE CULTURE RESULTS <10,000/ML NRG Encounters ACCT No. Visit Date/Time Discharge Status Pt. Type Provider Facility Loc./Unit Complaint [id number] 07/01/2017 10:00:00 07/01/2017 23:59:59 CLS Preadmit OTHER, UNLISTED [facility] DSME TYPE 2 DIABETES [id number] 04/01/2017 09:52:00 06/30/2017 00:01:00 DIS Outpatient OTHER, UNLISTED [facility] DSME TYPE 2 DIABETES [id number] 06/21/2017 15:15:00 06/21/2017 23:59:59 CLS Outpatient PAULIE MACKENZIE APRN [facility] RAD J32.8 [id number] 06/03/2017 12:56:00 06/03/2017 15:25:00 DIS Emergency SOPHIA MONTE MD [facility] ER LT HAND NUMB/UPPER LIP NUMB/SPEECH DIFF [id number] 05/21/2016 21:40:00 05/22/2016 00:32:00 DIS Emergency JENNY SUN MD [facility] ER SEVERE BACK PAIN [id number] 09/05/2015 11:52:00 09/05/2015 23:59:59 CLS Outpatient RACHEL PORTER, ROSIE Sultana [facility] CARD [id number] 07/23/2015 09:29:00 07/29/2015 12:15:00 DIS Inpatient DECLAN SANTOS MD [facility] 4TH [id number] 07/15/2015 19:10:00 07/15/2015 22:12:00 DIS Emergency NADEEM ABARCA DO [facility] ER [id number] 06/01/2015 20:58:00 06/03/2015 11:15:00 DIS Inpatient DECLAN SANTOS MD [facility] SURGICAL [id number] 05/30/2015 17:03:00 05/30/2015 21:02:00 DIS Emergency ERICA OSBORNE [facility] ER [id number] 04/26/2015 12:26:00 04/26/2015 23:59:59 CLS Outpatient DECLAN SANTOS MD [facility] RAD [id number] 04/04/2015 08:22:00 04/04/2015 23:59:59 CLS Outpatient SHONDA YBARRA MD [facility] RAD [id number] 03/27/2015 12:22:00 03/27/2015 23:59:59 CLS Outpatient TATE PORTER, SHONDA Raymundo [facility] RAD [id number] 03/20/2015 21:00:00 03/24/2015 14:00:00 DIS Inpatient DANIELLE PORTER, DECLAN Castaneda [facility] [id number] 03/20/2015 16:35:00 Document Registration [id number] 06/21/2012 20:00:00 Document Registration [id number] 12/18/2010 13:03:00 Document Registration [id number] 09/10/2010 11:37:00 Document Registration [id number] 08/12/2010 11:55:00 Document Registration [id number] 07/11/2010 15:52:00 Document Registration
[2017-12-26 14:52] LABS: BILIRUBIN,URINE NEGATIVE (NEGATIVE); CLARITY,URINE SLIGHTLY CLOUDY; COLOR,URINE YELLOW; GLUCOSE, URINE (UA) 3+ (NEGATIVE); LEUKOCYTE ESTERASE ,URINE 1+ (NEGATIVE); NITRITE,URINE NEGATIVE (NEGATIVE); PH,URINE 5 (5-9); UROBILINOGEN,URINE NORMAL (NORMAL)
[2017-12-26 15:05] LABS: KETONES,URINE 1+ (NEGATIVE); PROTEIN,URINE 3+ (NEGATIVE)
--- NOTE | 2017-12-26 15:12 | ED Neurological Problem ---
General Chief Complaint: Dizziness/Syncope Stated Complaint: CONFUSION/WEAKNESS Nursing Triage Note: ARRIVED VIA WC TO ROOM 03. COMPLAINS OF WEAKNESS AND DIZZINESS X1 WEAK. STATES SHE FELL ABOUT A WEEK AGO AND DOES NOT REMEMBER IF SHE HIT HER HEAD OR NOT. ALSO STATES WHEN SHE GETS A UTI OR HER MAGNESIUM IS LOW THIS IS HOW SHE ACTS. Nursing Sepsis Screen: No Definite Risk Source: patient, spouse Exam Limitations: no limitations History of Present Illness Date Seen by Provider: Dec 26, 2017 Time Seen by Provider: 15:12 Initial Comments 67 yo female patient presents to the ED with c/o weakness and intermittent generalized weakness x 1 week. Patient did fall 1 wk ago and does not recall if she hit her head, but denies LOC, headache, neck pain, or back pain. reports patient has been seeing a PA in [place] for hypomagnesemia. States they have found that when her magnesium is low or she has a UTI; she has dizziness, confusion, and generalized weakness. She has been tried on multiple forms of magnesium, but has diarrhea. Recently started on magnesium gluconate without diarrhea. Location Injury Occurred: home Timing/Duration: 1 week, waxing and waning Allergies and Home Medications Allergies Coded Allergies: canagliflozin (Verified Allergy, Severe, ANAPHYLAXIS, 07/22/15) iodine (Unverified Adverse Reaction, Severe, migraine headache, 07/11/10) lorazepam (Verified Adverse Reaction, Severe, ELEVATED BLOOD PRESSURE, ) zolpidem (Verified Adverse Reaction, Severe, SLEEP WALK, 07/22/15) codeine (Unverified Adverse Reaction, Mild, INCREASED ACTIVITY, 08/13/10) erythromycin base (Unverified Adverse Reaction, Mild, NAUSEA, 08/13/10) Heparin Analogues (Unverified Adverse Reaction, Unknown, 08/13/10) Home Medications Alprazolam 0.5 Mg Tablet, 0.5 MG PO TID PRN for ANXIETY, (Reported) Lisha/Cell/Lipas/Malt/Prt/Lac/in 220 Mg Capsule, 1 CAP PO BID, (Reported) Aspirin 81 Mg Tablet.dr, 81 MG PO HS, (Reported) Cholecalciferol (Vitamin D3) 2,000 Unit Tab.chew, 4,000 UNIT PO 0800,1200, ( Reported) Cholecalciferol (Vitamin D3) 2,000 Unit Tab.chew, 2,000 UNIT PO HS, (Reported) Clonidine HCl 0.1 Mg Tablet, 0.1 MG PO TID, (Reported) Fluticasone Propionate 16 Gm Cable.susp, 2 SPRAYS NS DAILY PRN for ALLERGIES/ CONGESTION, (Reported) Glyburide 5 Mg Tablet, 2.5 MG PO DAILY, (Reported) TAKES 1/2 (5MG) TABLET WITH BREAKFAST AND 1 (5MG) TABLET WITH SUPPER Glyburide 5 Mg Tablet, 5 MG PO 1800, (Reported) Insulin Detemir 100 Unit/1 Ml Insuln.pen, 5-8 UNITS SC HS, (Reported) Levomefolate/B6/B12/Algal Oil 1 Each Capsule, 1 CAP PO BID, (Reported) Losartan Potassium 50 Mg Tablet, 50 MG PO DAILY, (Reported) Metformin HCl 500 Mg Tablet, 500 MG PO 1200, (Reported) Metformin HCl 500 Mg Tablet, 1,000 MG PO BID, (Reported) TAKES 2 (500MG) TABLETS Metoprolol Succinate 100 Mg Tab.er.24h, 50 MG PO BID, (Reported) TAKES 1/2 (100MG) TABLET [place]-3 Fatty Acids 100 Mg Tab.chew, 100 MG PO TID, (Reported) Potassium Chloride 10 Meq Tablet.er, 10 MEQ PO DAILY, (Reported) Past Tdcqhgf-Gwvbcq-Fqvdjr Hx Patient Social History Alcohol Use: Denies Use Recreational Drug Use: No Smoking Status: Never a Smoker Recent Foreign Travel: No Contact w/Someone Who Travel: No Recent Infectious Disease Expo: No Recent Hopitalizations: Yes Immunizations Up To Date Tetanus Booster (TDap): More than 5yrs Date of Pneumonia Vaccine: Aug 01, 2012 Seasonal Allergies Seasonal Allergies: Yes Surgeries History of Surgeries: Yes (HYSTERECTOMY, thoracentesis, gallbladder, ) Surgeries: Appendectomy, Gallbladder, Hysterectomy, Pancreatic Respiratory History of Respiratory Disorde: No Cardiovascular History of Cardiac Disorders: Yes Cardiac Disorders: Hypertension Neurological History of Neurological Disord: Yes Neurological Disorders: Headaches /Migraines, Stroke, TIA 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 System Hx 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 Disorders: No FRESCO ARTIST History: Hysterectomy Genitourinary Genitourinary Disorders: Bladder Infection Gastrointestinal History of Gastrointestinal Di: Yes Gastrointestinal Disorders: Pancreatitis Musculoskeletal History of Musculoskeletal Dis: No Endocrine History of Endocrine Disorders: Yes Endocrine Disorders: Diabetes, Non-Insulin dep Cancer History of Cancer: No Psychosocial History of Psychiatric Problem: Yes Behavioral Health Disorders: Anxiety Integumentary History of Skin or Integumenta: No Blood Transfusions History of Blood Disorders: No Family Medical History Significant Family History: No Pertinent Family Hx, CVA Family Medial History: Physical Exam Vital Signs Vital Signs - First Documented 12/26/17 14:25 Temp 98.0 Pulse 92 Resp 18 B/P (MAP) 157/86 (109) Pulse Ox 95 Capillary Refill : Less Than 3 Seconds Stroke NIH Stroke Scale Assessment Level of Consciousness: 0=Alert (0), Level of Consciousness-Questions: 0= Answers both month/age (0), LOC Commands: 0=Performs both tasks (0), Visual [place]: 0=No visual loss (0), Facial Movement (Facial Paresis): 0=Normal symmetrical mnt (0), Motor Function-Arms Right: 0=No drift (0), Motor Function- Arms Left: 0=No drift (0), Motor Function-Legs Right: 2=Some effort/gravity (2) , Motor Function-Legs Left: 2=Some effort/gravity (2), Sensory: 0=Normal:no loss (0), Best Language: 0=No aphasia (0), Dysarthria: 0=Normal (0), Extinction & Inattention: 0=No abnormality (0), Total: Progress/Results/Core Measures Results/Orders Lab Results Laboratory Tests Test 12/26/17 14:30 12/26/17 15:02 Range/Units My Orders Orders - ERICA CROWELL Ct Head Wo (12/26/17 15:00) Cbc With Automated Diff (12/26/17 15:00) Comprehensive Metabolic Panel (12/26/17 15:00) Creatine Kinase (12/26/17 15:00) Creatine Kinase Mb (12/26/17 15:00) Fibrin Degradation Products (12/26/17 15:00) Magnesium (12/26/17 15:00) Thyroid Analyzer (12/26/17 15:00) Troponin I (12/26/17 15:00) Myoglobin Serum (12/26/17 15:00) Saline Lock/Iv-Start (12/26/17 15:00) Vital Signs/I&O Vital Sign - Last 12Hours 12/26/17 14:25 Temp 98.0 Pulse 92 Resp 18 B/P (MAP) 157/86 (109) Pulse Ox 95 Blood Pressure Mean: 109 Departure Departure-Patient Inst. Referrals: DECLAN SANTOS MD (PCP/Family) Primary Care Physician ERICA CROWELL Dec 26, 2017 15:12
[2017-12-26 15:14] LABS: BACTERIA,URINE NEGATIVE /HPF; URIC ACID CRYSTALS,URINE FEW /LPF
[2017-12-26 15:16] LABS: BASOPHILS % (AUTO) 0 % (0-10); EOSINOPHILS # (AUTO) 0.1 10^3/uL (0.0-0.3); EOSINOPHILS % (AUTO) 1 % (0-10); HEMATOCRIT 38 % (35-52); HEMOGLOBIN 13.2 G/DL (11.5-16.0); LYMPHOCYTES # (AUTO) 1.5 X 10^3 (1.0-4.0); LYMPHOCYTES % (AUTO) 24 % (12-44); MEAN CORPUSCULAR HEMOGLOBIN 28 PG (25-34); MEAN CORPUSCULAR HGB CONC 35 G/DL (32-36); MEAN CORPUSCULAR VOLUME 82 FL (80-99); MEAN PLATELET VOLUME 11.5 FL (7.4-10.4); MONOCYTES # (AUTO) 0.5 X 10^3 (0.0-1.0); MONOCYTES % (AUTO) 9 % (0-12); NEUTROPHILS # (AUTO) 4.2 X 10^3 (1.8-7.8); NEUTROPHILS % (AUTO) 66 % (42-75); PLATELET COUNT 221 10^3/uL (130-400); RED BLOOD COUNT 4.65 10^6/uL (4.35-5.85); RED CELL DISTRIBUTION WIDTH 14.9 % (10.0-14.5); WHITE BLOOD COUNT 6.4 10^3/uL (4.3-11.0)
[2017-12-26 15:34] LABS: ALANINE AMINOTRANSFERASE 22 U/L (0-55); ALBUMIN 3.9 GM/DL (3.2-4.5); ALKALINE PHOSPHATASE 71 U/L (40-136); BILIRUBIN,TOTAL 0.2 MG/DL (0.1-1.0); BUN/CREATININE RATIO 19; CALCIUM 9.3 MG/DL (8.5-10.1); CARBON DIOXIDE 21 MMOL/L (21-32); CHLORIDE 99 MMOL/L (98-107); CREATINE KINASE 94 U/L (29-168); CREATININE SERUM 1.15 MG/DL (0.60-1.30); GFR ESTIMATED 47; GLUCOSE 206 MG/DL (70-105); MAGNESIUM 1.1 MG/DL (1.8-2.4); SODIUM 137 MMOL/L (135-145); TOTAL PROTEIN 6.5 GM/DL (6.4-8.2)
[2017-12-26] MEDS ORDERED: NS IV 1000 ML 1,000 ML IV ONE (15:44)
[2017-12-26 15:54] LABS: CREATINE KINASE MB 1.2 NG/ML (<6.6); MYOGLOBIN SERUM 72.4 NG/ML (10.0-92.0); TSH (THYROID ANALYZER) 0.41 UIU/ML (0.35-4.94)
--- NOTE | 2017-12-26 15:58 | Diagnostic Imaging Report ---
PROCEDURE: CT head without contrast. TECHNIQUE: Multiple contiguous axial images were obtained through the brain without the use of intravenous contrast. INDICATION: Confusion. FINDINGS: There is no mass, shift of the midline or hemorrhage to suggest an acute intracranial abnormality. The ventricles are not abnormally dilated and similar in size to the prior exam of 06/03/2017. The cortical atrophy, seen on the previous study, is again evident and not significantly changed. However, there do seem to be new areas of diminished density in the left temporal lobe and left basal ganglia and in the periventricular white matter, bilaterally. These findings are nonspecific but may be secondary to encephalomalacia from infarcts which have occurred in the interval since the prior exam. It would be less likely that these findings are secondary to acute/subacute infarct. However, if further imaging is desired, then MRI would be recommended. The bone windows show no evidence for a fracture or for a destructive lesion. The orbits are symmetrical and within normal limits. The sinuses are generally clear. IMPRESSION: 1. There is no mass or hemorrhage identified. 2. There has been some increase in the areas of diminished density in the periventricular white matter, bilaterally, and the left basal ganglia and left temporal lobe. These findings may be secondary to encephalomalacia from infarcts which have occurred in the interval since the prior exam. The possibility that they are related to an acute abnormality would be less likely but should still be considered. Recommendations as above. Dictated by: Dictated on workstation # [id number]
[2017-12-26] MEDS: MAGNESIUM 1 GM/100 ML IVPB 100 ML IV SCH ×2 (16:01→16:59)
--- OUTSIDE RECORDS SUMMARY | 2017-12-26 18:24 | XMS REPORT | Continuity of Care Document ---
Author Author [facility] Organization [facility] Address Unknown Phone Unavailable Allergies Active Description Code Type Severity Reaction Onset Reported/Identified Relationship to Patient Clinical Status Yes iodine [id number] Drug Allergy Severe migraine headac 07/11/2010 Yes lorazepam [id number] Drug Allergy Severe N/A 08/12/2010 Yes zolpidem [id number] Drug Allergy Severe N/A 08/12/2010 Yes codeine [id number] Drug Allergy Mild INCREASED ACTIV 08/13/2010 Yes erythromycin base [id number] Drug Allergy Mild NAUSEA 08/13/2010 Yes Heparin Analogues [id number] Drug Allergy Unknown N/A 08/13/2010 Yes canagliflozin [id number] Drug Allergy Unknown ANAPHYLAXIS 07/21/2015 Yes canagliflozin [id number] Drug Allergy Severe ANAPHYLAXIS 07/22/2015 Yes lorazepam [id number] Drug Allergy Severe ELEVATED BLOOD 07/22/2015 Yes zolpidem [id number] Drug Allergy Severe SLEEP WALK 07/22/2015 Medications [...] PORTER, SHONDA Raymundo Ot 577.2 04/26/2015 TATE POTRER, SHONDA Raymundo Ot 577.2 05/22/2015 DECLAN SANTOS [...] SKIN 06/03/2017 SOPHIA MONTE MD Ot Z79.84 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 06/03/2017 SOPHIA MONTE MD Ot Z79.899 OTHER HALFWAY (CURRENT) DRUG THERAPY 06/16/2017 OTHER, UNLISTED Ot [...] 06/03/17 13:50 URINE CULTURE RESULTS <10,000/ML NRG Complete urinalysis with reflex to culture - 12/26/17 14:30 Urine color determination YELLOW NRG Urine clarity determination SLIGHTLY CLOUDY NRG Urine pH measurement by test strip 5 5-9 Specific gravity of urine by test strip 1.020 1.016- 1.022 Urine protein assay by test strip, semi-quantitative 3+ NEGATIVE Urine glucose detection by automated test strip 3+ NEGATIVE Erythrocytes detection in urine sediment by light microscopy NEGATIVE NEGATIVE Urine ketones detection by automated test strip 1+ NEGATIVE Urine nitrite detection by test strip [...] in urine sediment by light microscopy NEGATIVE NRG Squamous epithelial cells detection in urine sediment by light microscopy 10-20 NRG Crystals detection in urine sediment by light microscopy PRESENT NRG Casts detection in urine sediment by light microscopy NONE NRG Complete urinalysis with reflex to culture NO NRG Uric acid crystals detection in urine sediment by light microscopy FEW NRG Complete blood count (CBC) with automated white blood cell (WBC) differential - 12/26/17 15:02 Blood leukocytes automated count (number/volume) 6.4 10*3/uL 4.3-11.0 Blood erythrocytes automated count (number/volume) 4.65 10*6/uL 4.35-5.85 Venous blood hemoglobin measurement (mass/volume) 13.2 g/dL 11.5-16.0 Blood hematocrit (volume fraction) 38 % 35-52 Automated erythrocyte mean corpuscular volume 82 [foz_us] 80-99 Automated erythrocyte mean corpuscular hemoglobin (mass per erythrocyte) 28 pg 25-34 Automated erythrocyte mean corpuscular hemoglobin concentration measurement ( mass/volume) 35 g/dL 32-36 Automated erythrocyte distribution width ratio 14.9 % 10.0-14.5 Automated blood platelet count (count/volume) 221 10*3/uL 130-400 Automated blood platelet mean volume measurement 11.5 [foz_us] 7.4-10.4 Automated blood neutrophils/100 leukocytes 66 % 42-75 Automated blood lymphocytes/100 leukocytes 24 % 12-44 Blood monocytes/100 leukocytes 9 % 0-12 Automated blood eosinophils/100 leukocytes 1 % 0-10 Automated blood basophils/100 leukocytes 0 % 0-10 Blood neutrophils automated count (number/volume) 4.2 10*3 1.8-7.8 Blood lymphocytes automated count (number/volume) 1.5 10*3 1.0-4.0 Blood monocytes automated count (number/volume) 0.5 10*3 0.0-1.0 Automated eosinophil count 0.1 10*3/uL 0.0-0.3 Automated blood basophil count (count/volume) 0.0 10*3/uL 0.0-0.1 Comprehensive metabolic panel - 12/26/17 15:02 Serum or plasma sodium measurement (moles/volume) 137 mmol/L 135-145 Serum or plasma potassium measurement (moles/volume) 4.0 mmol/L 3.6-5.0 Serum or plasma chloride measurement (moles/volume) 99 mmol/L 98-107 Carbon dioxide 21 mmol/L 21-32 Serum or plasma anion gap determination (moles/volume) 17 mmol/L 5-14 Serum or plasma urea nitrogen measurement (mass/volume) 22 mg/dL 7-18 Serum or plasma creatinine measurement (mass/volume) 1.15 mg/dL 0.60-1.30 Serum or plasma urea nitrogen/creatinine mass ratio 19 NRG Serum or plasma creatinine measurement with calculation of estimated glomerular filtration rate 47 NRG Serum or plasma glucose measurement (mass/volume) 206 mg/dL 70-105 Serum or plasma calcium measurement (mass/volume) 9.3 mg/dL 8.5-10.1 Serum or plasma total bilirubin measurement (mass/volume) 0.2 mg/dL 0.1-1.0 Serum or plasma alkaline phosphatase measurement (enzymatic activity/volume) 71 U/L 40-136 Serum or plasma aspartate aminotransferase measurement (enzymatic activity/ volume) 14 U/L 5-34 Serum or plasma alanine aminotransferase measurement (enzymatic activity/volume ) 22 U/L 0-55 Serum or plasma protein measurement (mass/volume) 6.5 g/dL 6.4-8.2 Serum or plasma albumin measurement (mass/volume) 3.9 g/dL 3.2-4.5 Magnesium - 12/26/17 15:02 Magnesium 1.1 mg/dL 1.8-2.4 Serum or plasma creatine kinase measurement (enzymatic activity/volume) - 12/26 15:02 Serum or plasma creatine kinase measurement (enzymatic activity/volume) 94 U/L 29-168 Fibrin D-dimer FEU measurement in platelet poor plasma (mass/volume) - 15:02 Fibrin D-dimer FEU measurement in platelet poor plasma (mass/volume) 0.36 ug/mL 0.00-0.49 Serum or plasma creatine kinase MB measurement (enzymatic activity/volume) - 15:02 Serum or plasma creatine kinase MB measurement (enzymatic activity/volume) 1.2 ng/mL <6.6 Serum or plasma troponin i.cardiac measurement (mass/volume) - 12/26/17 15:02 Serum or plasma troponin i.cardiac measurement (mass/volume) < ng/ mL <0.30 Myoglobin, serum - 12/26/17 15:02 Myoglobin, serum 72.4 ng/mL 10.0-92.0 Serum or plasma thyrotropin measurement by detection limit <=0.05 miu/l (units/ volume) - 12/26/17 15:02 Serum or plasma thyrotropin measurement by detection limit <=0.05 miu/l (units/ volume) 0.41 u[iU]/mL 0.35-4.94 Encounters ACCT No. Visit Date/Time Discharge Status Pt. Type Provider Facility Loc./Unit Complaint [id number] 07/01/2017 10:00:00 07/01/2017 23:59:59 CLS Preadmit [facility] [id number] 04/01/2017 09:52:00 06/30/2017 00:01:00 DIS Outpatient [facility] [id number] 06/21/2017 15:15:00 06/21/2017 23:59:59 CLS Outpatient PAULIE MACKENZIE APRN [facility] RAD J32.8 [id number] 06/03/2017 12:56:00 06/03/2017 15:25:00 DIS Emergency LAVELL PORTER, SOPHIA Magana [facility] ER LT HAND NUMB/UPPER LIP NUMB/SPEECH DIFF [id number] 05/21/2016 21:40:00 05/22/2016 00:32:00 DIS Emergency CORINNE PORTER, JENNY Castaneda [facility] ER SEVERE BACK PAIN [id number] 09/05/2015 11:52:00 09/05/2015 23:59:59 CLS Outpatient RACHEL PORTER, ROSIE Sultana [facility] CARD [id number] 07/23/2015 09:29:00 07/29/2015 12:15:00 DIS Inpatient DECLAN SANTOS MD [facility] 4TH [id number] 07/15/2015 19:10:00 07/15/2015 22:12:00 DIS Emergency NADEEM ABARCA DO [facility] ER [id number] 06/01/2015 20:58:00 06/03/2015 11:15:00 DIS Inpatient DECLAN SANTOS MD [facility] SURGICAL [id number] 05/30/2015 17:03:00 05/30/2015 21:02:00 DIS Emergency ERICA OSBORNE [facility] ER [id number] 04/26/2015 12:26:00 04/26/2015 23:59:59 CLS Outpatient DECLAN SANTOS MD [facility] RAD [id number] 04/04/2015 08:22:00 04/04/2015 23:59:59 CLS Outpatient SHONDA YBARRA MD [facility] RAD [id number] 03/27/2015 12:22:00 03/27/2015 23:59:59 CLS Outpatient SHONDA YBARRA MD [facility] RAD [id number] 03/20/2015 21:00:00 03/24/2015 14:00:00 DIS Inpatient DECLAN SANTOS MD [facility] [id number] 12/26/2017 15:14:00 Document Registration [id number] 03/20/2015 16:35:00 Document Registration [id number] 06/21/2012 20:00:00 Document Registration [id number] 12/18/2010 13:03:00 Document Registration [id number] 09/10/2010 11:37:00 Document Registration [id number] 08/12/2010 11:55:00 Document Registration [id number] 07/11/2010 15:52:00 Document Registration
[2017-12-26 18:30] VITALS: BP 190/84
[2017-12-26] MEDS ORDERED: MECLIZINE 25 MG (ANTIVERT) TAB PO PRN (19:00)
[2017-12-26] MEDS ORDERED: MAGNESIUM 2 GM/50 ML IVPB 50 ML IV ONE (19:00)
[2017-12-26] MEDS ORDERED: ONDANSETRON 4 MG/2 ML (SDV) Z0FRAN IV PRN ×2 (19:00→20:15)
[2017-12-26] MEDS: NS IV 1000 ML 1,000 ML IV SCH (19:05)
[2017-12-26 20:00] VITALS: BP 195/92
[2017-12-26] MEDS ORDERED: ANTACID SUSP 30 ML UDC (MYLANTA) PO PRN (20:15)
[2017-12-26] MEDS ORDERED: MILK OF MAGNESIA 400 MG/5 ML 30 ML UDC PO PRN (20:15)
[2017-12-26] MEDS ORDERED: BENZONATATE 100 MG (TESSALON) CAPSULE PO PRN (20:15)
[2017-12-26] MEDS ORDERED: MELATONIN 3 MG TABLET PO PRN (20:15)
[2017-12-26] MEDS: NITROGLYCERIN 2% OINT 1 GM UNIT DOSE PACKET TOP PRN (20:40)
[2017-12-26 21:45] VITALS: BP 173/85
[2017-12-26] MEDS ORDERED: ALPRAZolam 0.5 MG (XANAX) TAB PO PRN (22:45)
[2017-12-27] VITALS (8 sets, daily range): BP systolic 156–220; BP diastolic 75–102
[2017-12-27] MEDS ORDERED: ONDANSETRON 4 MG/2 ML (SDV) Z0FRAN IV ONE (06:00)
[2017-12-27 06:22] LABS: BASOPHILS % (AUTO) 0 % (0-10); EOSINOPHILS # (AUTO) 0.1 10^3/uL (0.0-0.3); EOSINOPHILS % (AUTO) 2 % (0-10); HEMATOCRIT 36 % (35-52); HEMOGLOBIN 12.1 G/DL (11.5-16.0); LYMPHOCYTES # (AUTO) 1.7 X 10^3 (1.0-4.0); LYMPHOCYTES % (AUTO) 37 % (12-44); MEAN CORPUSCULAR HEMOGLOBIN 28 PG (25-34); MEAN CORPUSCULAR HGB CONC 34 G/DL (32-36); MEAN CORPUSCULAR VOLUME 83 FL (80-99); MEAN PLATELET VOLUME 11.7 FL (7.4-10.4); MONOCYTES # (AUTO) 0.4 X 10^3 (0.0-1.0); MONOCYTES % (AUTO) 9 % (0-12); NEUTROPHILS # (AUTO) 2.5 X 10^3 (1.8-7.8); NEUTROPHILS % (AUTO) 52 % (42-75); PLATELET COUNT 190 10^3/uL (130-400); RED BLOOD COUNT 4.33 10^6/uL (4.35-5.85); WHITE BLOOD COUNT 4.8 10^3/uL (4.3-11.0)
[2017-12-27 06:49] LABS: ALANINE AMINOTRANSFERASE 20 U/L (0-55); ALBUMIN 3.6 GM/DL (3.2-4.5); ALKALINE PHOSPHATASE 64 U/L (40-136); BILIRUBIN,TOTAL 0.3 MG/DL (0.1-1.0); BUN/CREATININE RATIO 22; CALCIUM 8.5 MG/DL (8.5-10.1); CARBON DIOXIDE 20 MMOL/L (21-32); CHLORIDE 107 MMOL/L (98-107); CREATININE SERUM 0.73 MG/DL (0.60-1.30); GFR ESTIMATED > 60; GLUCOSE 124 MG/DL (70-105); MAGNESIUM 1.5 MG/DL (1.8-2.4); POTASSIUM 3.7 MMOL/L (3.6-5.0); SODIUM 141 MMOL/L (135-145)
--- NOTE | 2017-12-27 08:17 | History & Physical-Hospitalist ---
HPI History of Present Illness: HPI/Chief Complaint Pt is q99ifOS with a PMH of IDDMII, HTN, and diabetic neuropathy who presented to the ER with CC of weakness and falls. She is a rambling historian and though no formal diagnosis of dementia does not track conversation well and thus this history is somewhat limited. When asked what brought her to the ER she was only about to tell me "strange things" have been happening for 2 weeks. She was unable to elaborate on those until prompted. When asked about her falls she states she has fallen 3-4 times in the past two weeks. She denies hitting her head when she has fallen (though later told me she tripped over her cat and hit her head). She is also unable to elaborate on her falls states that she's "already one the ground." She denies any syncope, palpitations, or LOC. She states she just feels weak. She is also unsure if she has been taking her medications as prescribed. She thinks she may have stopped some of her blood pressure medicines but is unsure. She told me she had to stop her clonidine patch due to a rash but then immediately told me she was unsure why they had to stop her patch. Source: patient Date Seen 12/27/17 Time Seen by Provider: 07:40 Attending Physician Nati Garcia MD PCP Frank Goldsmith MD Referring Physician Date of Admission Dec 26, 2017 at 5:55 pm Home Medications & Allergies Home Medications Reviewed patient Home Medication Reconciliation Form Allergies Allergies Coded Allergies canagliflozin (Verified Allergy, Severe, ANAPHYLAXIS, 07/22/15) iodine (Unverified Adverse Reaction, Severe, migraine headache, 07/11/10) lorazepam (Verified Adverse Reaction, Severe, ELEVATED BLOOD PRESSURE, 07/22/15 ) zolpidem (Verified Adverse Reaction, Severe, SLEEP WALK, 07/22/15) codeine (Unverified Adverse Reaction, Mild, INCREASED ACTIVITY, 08/13/10) erythromycin base (Unverified Adverse Reaction, Mild, NAUSEA, 08/13/10) Heparin Analogues (Unverified Adverse Reaction, Unknown, 08/13/10) Past Filmtwj-Ssmemi-Tydwea Hx Patient Social History Marrital Status: Alcohol Use: Denies Use Recreational Drug Use: No Smoking Status: Never a Smoker Physical Abuse Screen: No Sexual Abuse: No Recent Foreign Travel: No Contact w/other who traveled: No Recent Hopitalizations: No Recent Infectious Disease Expo: No Immunizations Up To Date Tetanus Booster (TDap): More than 5yrs Date of Pneumonia Vaccine: Aug 01, 2012 Date of Influenza Vaccine: Aug 26, 2017 Seasonal Allergies Seasonal Allergies: Yes Surgeries Yes (HYSTERECTOMY, thoracentesis, gallbladder, ) Appendectomy, Gallbladder, Hysterectomy, Pancreatic Respiratory No Cardiovascular Yes Hypertension Neurological Yes Headaches /Migraines, Stroke, TIA 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 System Hx 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 Disorders: 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 Genitourinary Bladder Infection Gastrointestinal Yes Pancreatitis Musculoskeletal No Endocrine History of Endocrine Disorders: Yes Endocrine Disorders: Diabetes, Insulin dep, Diabetes, Non-Insulin dep Are Your Blood Sugars Over 250: No HEENT History of HEENT Disorders: No Cancer No Psychosocial History of Psychiatric Problem: Yes Behavioral Health Disorders: Anxiety Integumentary History of Skin or Integumenta: No Blood Transfusions History of Blood Disorders: No Family Medical History Significant Family History: CVA Family Hx: Review of Systems ROS-Unable to Obtain: limited- see HPI Constitutional: weakness EENTM: No blurred vision, No double vision, No nose congestion, No throat pain Respiratory: No cough, No dyspnea on exertion, No short of breath Cardiovascular: No chest pain, No edema, No palpitations Gastrointestinal: No abdominal pain, No constipation, No diarrhea, No nausea, No vomiting Genitourinary: No dysuria, No frequency Musculoskeletal: No joint pain, No muscle pain, No muscle stiffness, No muscle cramps, muscle weakness Skin: No lesions, No rash Psychiatric/Neurological: Denies Headache, Denies Numbness, Denies Paresthesia , Denies Tingling, Weakness Physical Exam Physical Exam Vital Signs Vital Signs - First Documented 12/26/17 12/26/17 14:25 18:30 Temp 98.0 Pulse 92 Resp 18 B/P (MAP) 157/86 (109) Pulse Ox 95 O2 Delivery Room Air Capillary Refill : Less Than 3 Seconds General Appearance: No Apparent Distress, WD/WN HEENT: PERRL/EOMI, Moist Mucous Membranes Neck: Non Tender, Supple Respiratory: Lungs Clear, No Respiratory Distress Cardiovascular: Regular Rate, Rhythm, No JVD, Systolic Murmur Gastrointestinal: Normal Bowel Sounds, Non Tender, Soft Extremity: Normal Capillary Refill, No Calf Tenderness Neurologic/Psychiatric: Alert, Oriented x3, No Motor/Sensory Deficits, Normal 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 TECHNIQUE: Multiple contiguous axial images were obtained through the brain without the use of intravenous contrast. INDICATION: Confusion. FINDINGS: There is no mass, shift of the midline or hemorrhage to suggest an acute intracranial abnormality. The ventricles are not abnormally dilated and similar in size to the prior exam of 06/03/2017. The cortical atrophy, seen on the previous study, is again evident and not significantly changed. However, there do seem to be new areas of diminished density in the left temporal lobe and left basal ganglia and in the periventricular white matter, bilaterally. These findings are nonspecific but may be secondary to encephalomalacia from infarcts which have occurred in the interval since the prior exam. It would be less likely that these findings are secondary to acute/subacute infarct. However, if further imaging is desired, then MRI would be recommended. The bone windows show no evidence for a fracture or for a destructive lesion. The orbits are symmetrical and within normal limits. The sinuses are generally clear. IMPRESSION: 1. There is no mass or hemorrhage identified. 2. There has been some increase in the areas of diminished density in the periventricular white matter, bilaterally, and the left basal ganglia and left temporal lobe. These findings may be secondary to encephalomalacia from infarcts which have occurred in the interval since the prior exam. The possibility that they are related to an acute abnormality would be less likely but should still be considered. Recommendations as above. Assessment/Plan Admission Diagnosis Generalized weakness Admission Status: Observation Diagnosis/Problems Diagnosis/Problems (1) Hypertensive urgency Status: Acute Assessment & Plan: BP 230/110 while I was in room Aide to get manual cuff Will resume home BP medications Asymptomatic otherwise Trend Appears to have been noncompliant with medications [employer] at PCP's office to fax med list Review of claim history consistent with noncompliance Needs CHRISTINA or Arb but review of chart shows previous angioedema so will await med list prior to starting (2) Generalized weakness Assessment & Plan: Etiology unclear- 3-4 falls in past two weeks Will get MRI today PT/OT to evaluate IRU consult (3) Confusion Assessment & Plan: Highly suspicious for vascular dementia Discussed with [employer] at PCP's office- unaware of formal diagnosis Discussed with Speech here who will do cognitive eval (4) Insulin dependent diabetes mellitus Assessment & Plan: Taylor SHAW Reports A1c 6.9 at most recent check Fasting BS 124 this AM Will hold Levemir and glyburide due to risk of hypoglycemia SSI (5) History of lacunar cerebrovascular accident Assessment & Plan: Review of 2011 Brain MRI showed acute lacunar infarct at the time Will need statin at DC Will check lipid panel (6) Hypomagnesemia Assessment & Plan: replaced in ER, remains low Will replace this AM (7) Prophylactic measure Assessment & Plan: Lovenox Cardiac diet Saline Lock Clinical Quality Measures DVT/VTE Risk/Contraindication: Risk Factor Score Per Nursin RFS Level Per Nursing on Admit: 3=High NATI GARCIA MD Dec 27, 2017 08:17
[2017-12-27] MEDS: amLODIPine 10 MG (NORVASC) TAB PO SCH (08:27)
[2017-12-27] MEDS ORDERED: meTOprolol SUCCINATE 100 MG (TOPROL XL) TAB PO SCH (09:00)
[2017-12-27] MEDS: MAGNESIUM 1 GM/100 ML IVPB 100 ML IV SCH ×2 (09:13→10:08)
[2017-12-27 09:18] LABS: CHOLESTEROL 228 MG/DL (< 200); HDL CHOLESTEROL 35 MG/DL (40-60); TRIGLYCERIDES 543 MG/DL (<150)
[2017-12-27] MEDS ORDERED: METO-395 PO (09:43)
[2017-12-27] MEDS ORDERED: LOSA50TA36 PO (09:43)
[2017-12-27] MEDS ORDERED: GLYB5TAB6 PO ×2 (09:43→10:41)
[2017-12-27] MEDS ORDERED: INSU100I29 SC (09:43)
[2017-12-27] MEDS ORDERED: METF500T4 PO ×2 (09:43)
[2017-12-27] MEDS ORDERED: LIPA1CAP25 PO (09:43)
[2017-12-27] MEDS ORDERED: CLON0.1T PO (09:43)
[2017-12-27] MEDS ORDERED: FLUT16SP22 NS (09:43)
[2017-12-27] MEDS ORDERED: ASPI-999 PO (10:06)
[2017-12-27] MEDS ORDERED: CHOL5000 PO (10:06)
[2017-12-27] MEDS ORDERED: CHOL200078 PO ×2 (10:33)
[2017-12-27] MEDS ORDERED: OMEG100T PO (10:33)
[2017-12-27] MEDS ORDERED: ASPI-983 PO (10:33)
[2017-12-27] MEDS ORDERED: ENZY1CAP3 PO (10:33)
[2017-12-27] MEDS ORDERED: LEVO1CAP11 PO (10:33)
[2017-12-27] MEDS: NITROGLYCERIN 2% OINT 1 GM UNIT DOSE PACKET TOP PRN ×2 (10:39→21:05)
[2017-12-27] MEDS ORDERED: MAGNESIUM GLUCONATE PO (10:39)
[2017-12-27] MEDS ORDERED: FLUTICASONE NASAL SPRAY (FLONASE) 16 GM BTL NS PRN (11:00)
[2017-12-27] MEDS: inSUlin ASPART (NovoLOG) 1 UNIT/0.01 ML (CHARGE PER UNIT) SC SCH ×3 (12:34→21:06)
--- NOTE | 2017-12-27 12:47 | Occupational Therapy Eval ---
OT Evaluation-General/PLF Medical Diagnosis Admission Date Dec 26, 2017 at 17:55 Medical Diagnosis: hypomagnesmic, volume depletion, AMS Onset Date: Dec 26, 2017 Therapy Diagnosis Therapy Diagnosis: decreased self care Height/Weight Height (Feet): 5 Height (Inches): 4.00 Weight (Pounds): 126 Weight (Ounces): 0.0 Precautions Precautions/Isolations: Fall Prevention, Standard Precautions Safety Interventions: Bed Exit Alarm Referral Physician: Fredis Medical History Pertinent Medical History: CVA, DM, HTN Additional Medical History diabetic neuropathy, migraines, pancreatitis, anxiety Reviewed History: Yes Social History Home: Single Level Current Living Status: Spouse ADL-Prior Level of Function ADL PLOF Comments Pt has much difficulty providing information regarding PLOF. Pt initially states she lives alone with her cats, but later states she has a spouse who can assist if needed. Pt states she does not use any assistive devices. DME/Equipment: Tub/Shower Drive Self: Yes OT Current Status Subjective Pt sitting in chair, agrees to therapy. Pt denies pain at this time. Mental Status/Objective Patient Orientation: Person, Confused Pt is able to state name and location, but unaware of date. Attachments: IV Current Hand Dominance: Right Upper Extremity ROM Grossly WFL Upper Extremity Coordination Intact Upper Extremity Sensation Pt denies numbness or tingling. Upper Extremity Strength Pt unable to adequately follow directions to complete formal MMT. Pt appears to have decreased strength bilaterally ADL-Treatment ADL-Current Pt demonstrated ability to doff/don socks with SBA. Pt sit to stand with supervision. Pt demonstrates ability to transfer with supervision and skilled cues for safety. Yeung hair with set up while seated. Pt is easily distracted and requires multiple cues to attend to tasks. Pt perseverates on where IV is placed and the dressing that is covering it. Pt is sitting in chair with needs met and chair alarm in place after session. Functional [place] Measure 0=Not Assessed/NA 4=Minimal Assistance 1=Total Assistance 5=Supervision or Setup 2=Maximal Assistance 6=Modified [place] 3=Moderate Assistance 7=Complete IndependenceIRFPAI Quality Coding Scale 6 Independent with activity with or without an assistive device 5 Patient requires set up or clean up by helper. Patient completes activity by themselves 4 Supervision or touching assist (CGA). [place] provide cues , steadying assist 3 The helper provides less than half the effort to complete the activity 2 The helper provides more than half the effort to complete the activity 1 Dependent. The helper does all the effort to complete an activity 7 Patient refused to complete or attempt activity 9 The patient did not perform the activity before the current illness or injury 88 Not attempted due to Medical conditions or safety concerns Grooming (FIM): 5 Lower Body Dressing (FIM): 5 Education OT Patient Education: Rehab process Teaching Recipient: Patient Teaching Methods: Discussion Response to Teaching: Reinforcement Needed OT Short Term Goals Short Term Goals 1=Demonstrate adherence to instructed precautions during ADL tasks. 2=Patient will verbalize/demonstrate understanding of assistive devices/ modifications for ADL. 3=Patient will improve strength/tolerance for activity to enable patient to perform ADL's. OT Windows Technical Specialist Goals Windows Technical Specialist Goals Time Frame: Jan 10, 2018 Eating (FIM): 6 Grooming(FIM): 6 Bathing(FIM): 5 Upper Body Dressing(FIM): 6 Lower Body Dressing(FIM): 6 Toileting(FIM): 6 Toilet/Commode Transfer(FIM): 6 1=Demonstrate adherence to instructed precautions during ADL tasks. 2=Patient will verbalize/demonstrate understanding of assistive devices/ modifications for ADL. 3=Patient will improve strength/tolerance for activity to enable patient to perform ADL's. OT Education/Plan Problem List/Assessment Assessment: Decreased Activ Tolerance, Decreased Safety Aware, Decreased UE Strength, Dependent Transfers, Impaired Self-Care Skills Discharge Recommendations Plan/Recommendations: Continue POC Treatment Plan/Plan of Care Treatment,Training & Education: Yes Patient would benefit from OT for education, treatment and training to promote independence in ADL's, mobility, safety and/or upper extremity function for ADL' s. Plan of Care: ADL Retraining, Functional Mobility, UE Funct Exercise/Act Treatment Duration: Jan 10, 2018 Frequency: 5 times per week Estimated Hrs Per Day: .25 hour per day Rehab Potential: Fair Time/GCodes Start Time: 11:05 Stop Time: 11:20 Total Time Billed (hr/min): 15 Billed Treatment Time 1 visit, CINDI(15minutes) TARIQ MCNULTY OT Dec 27, 2017 12:47
--- NOTE | 2017-12-27 12:53 | ST Cognitive Linguistic Eval ---
Speech Evaluation-General Medical Diagnosis Dizziness, Weakness Onset Date: Dec 26, 2017 Therapy Diagnosis Therapy Diagnosis: Moderate Cognitive Deficit/Confusion Precautions Precautions/Isolations: Fall Prevention, Standard Precautions Referral Referring Physician: Dr. Susan Mcneal Reason for Referral: Evaluation/Treatment Cognitive Evaluation (MoCA) Medical History Pertinent Medical History: DM, HTN Current History The patient was recently admitted to [facility] following a week-long period of dizziness and weakness. The patient's physician requested cognitive evaluation following interactions where the patient appeared confused. Reviewed History: Yes Social History Current Living Status: Significant Other Speech PLF-Current Status Prior Level of Function The patient denied prior challenges with speech, language or cognition. To note, approximately residential through the cognition evaluation the patient stated, "well, I guess I am what you would call a little confused." Subjective The patient was laying in bed upon entrance. The patient greeted the clinician and was agreeable to participation in the cognitive evaluation. To note, upon entrance, the patient had removed her IV sleeve protectant and was rolling it around her IV line. Additionally, the patient picked up her call light, placed it to her ear and stated, "I'm just going to call my breakfast down real quick." Language Eval: Auditory Ident/Pics in Multiple [place]: Functional Follows 1-Step Commands: Functional (With consistent prompting.) Follows General Conversations: Moderate Language Eval: Verbal Language Completes Spontaneous Greeting: Functional Produces Auto, Serial Info: Functional (With consistent prompting.) Imitates Simple Words/Phrases: Moderate Word Finding: Severe Requests Basic Needs: Mild Cognitive Patient Orientation The patient was able to state her name (after several leading questions), location, and city. The patient was unable to state the month (March), day of week (Wednesday), year (2015), or date ("well, that one I'm not sure of.") Objective Cognitive Domain Attention: Moderate Memory: Moderate (The patient was unable to recall five single words immediately (recalled three of five) or any single words following a five minute delay ("I don't even remember you giving me words!" The patient was additionally unable to recall her rationale for hospitalization.) Problem Solving: Moderate (The patient demonstrated a lack of functional problem solving while using the call light as her phone, attempting to use the restroom with IV lines attached, and not responding to the bed alarm.) Objective Formal/Standardized Tests The Al Cognitive Assessment (MoCA)- Version One, was provided on this date. The patient demonstrated a result of +8/25 (patient deferred writing tasks ) correlating to a moderate (if not, moderate to severe) cognitive deficit. The patient was unable to identify letters in a string of letters, provide word- finding answers, repeat single phrases, or find similarities between like items. Impression The patient demonstrated moderate cognitive impairments, as well as, intermittent confusion throughout the evaluation. While the clinician was in the room, the patient attempted to rise from the bed regardless of the bed alarm , walk to the bathroom while her IV remained connected and plugged into the wall (patient did not notice this until asked repeatedly to stop walking by the clinician due to the stress she was placing on her IV line), and attempted to use the call light as a phone (on several attempts). The patient's largest deficits appear related to memory (short-term recall and delayed recall), as well as, orientation. The clinician is concerned of the patient being left unattended or unsupervised at home. Speech-Plan Treatment Plan Speech Therapy Treatment Plan: Discontinue ST Evaluation, only. Frequency: 1 time per week Estimated Hrs Per Day: .5 hour per day Rehab Potential: Guarded Safety Risks/Education Teaching Recipient: Patient Teaching Methods: Discussion Response to Teaching: Unable to Comprehend, Reinforcement Needed Education Topics Provided: Results of MoCA, Level of Confusion, Orientation Strategies Time Speech Therapy Time In: 09:15 Speech Therapy Time Out: 09:45 Total Billed Time: 30 Billed Treatment Time 1, SPSNDCOMP Speech GCodes Complexity Level Test(s)/Tool Used to Determine: Level of Assistance Scale Functional Limitation-Current Current: MEMCUR Modifier: CK Functional Limitation-Goal Goal: MEMGOAL Modifier: CK Functional Limitation-D/C Discharge: MEMDC Modifier: CK ALIVIA MONAE Dec 27, 2017 12:53
[2017-12-27] MEDS ORDERED: PATIENT MAY USE OWN MEDS, ALL MC SCH (13:00)
[2017-12-27] MEDS: ACETAMINOPHEN 500 MG TAB (TYLENOL) PO PRN (13:27)
[2017-12-27] MEDS: NS IV 1000 ML 1,000 ML IV SCH (13:29)
--- NOTE | 2017-12-27 13:53 | Physical Therapy Evaluation ---
PT Evaluation-General Medical Diagnosis Admission Date Dec 26, 2017 at 17:55 Medical Diagnosis: Dizziness, Weakness Onset Date: Dec 26, 2017 Therapy Diagnosis Therapy Diagnosis: debility Height/Weight Height (Feet): 5 Height (Inches): 4.00 Weight (Pounds): 126 Weight (Ounces): 0.0 Precautions Precautions/Isolations: Fall Prevention, Standard Precautions Weight Bear Status Right Lower Extremity: Right Weight Bearing/Tolerated Left Lower Extremity: Left Weight Bearing/Tolerated Referral Physician: Fredis Reason for Referral: Evaluation/Treatment Medical History Pertinent Medical History: DM, HTN, Neuropathy Additional Medical History GARCIA Current History ED with weakness and dizziness x 1 wk and confusion Reviewed History: Yes Social History Home: Single Level Current Living Status: Significant Other Prior/Core FIM Prior Level of Function Functional [place] Measure 0=Not Assessed/NA 4=Minimal Assistance 1=Total Assistance 5=Supervision or Setup 2=Maximal Assistance 6=Modified [place] 3=Moderate Assistance 7=Complete [place] Bed Mobility: 7 Transfers (B,C,W/C) (FIM): 7 Gait: 7 PT Evaluation-Current Subjective Patient is very confused and difficulty to redirect. Pain Numeric Pain Scale: 5-Moderate Pain Location Body Site: Head Pain Description: Ache, Acute Comment: FLACC Objective Patient Orientation: Confused Problem Solving: Poor Attachments: IV ROM/Strength ROM Lower Extremities bilateral LE WNL Strength Lower Extremities bilateral LE WNL Integumentary/Posture Integumentary refer to nursing notes Bowel Incontinence: No Bladder Incontinence: No Posture WNL Neuromuscular (Tone, Coordination, Reflexes) slightly diminished coordination due to confusion/weakness Sensory Vision: Functional Hand Dominance: Right Sensation Right Lower Extremit: Impaired Sensation Left Lower Extremity: Impaired Transfers Functional [place] Measure 0=Not Assessed/NA 4=Minimal Assistance 1=Total Assistance 5=Supervision or Setup 2=Maximal Assistance 6=Modified [place] 3=Moderate Assistance 7=Complete [place] Transfers (B, C, W/C) (FIM): 5 Scootin Supine to/from Sit: 5 Sit to/from Stand: 5 Gait Mode of Locomotion: Walk Anticipated Mode of Locomotion: Walk Gait (FIM): 5 Distance (FIM): 3=150 ft Gait Level of Assist: 5 Gait Assistive Device: None Comments/Gait Description observed with nursing in hallway Balance Sitting Static: Fair Sitting Dynamic: Fair Standing Static: Fair Standing Dynamic: Fair Assessment/Needs 67 y.o. very confused female, will benefit from short term skilled PT to address safety awareness and functional mobility to return to home with spouse at maximum LOF. Patient is currently very confused and difficult to redirect and remain on task. Rehab Potential: Fair PT Piecer Goals Snf Goals PT Piecer Goals Time Frame: Jan 05, 2018 Transfers (B,C,W/C) (FIM): 7 Gait (FIM): 7 Gait distance (FIM): 3=150 ft Gait Level of Assist: 7 Gait Assistive Device: None PT Plan Problem List Problem List: Activity Tolerance, Safety, Balance Treatment/Plan Treatment Plan: Continue Plan of Care Treatment Plan: Education, Functional Activity Shiv, Functional Strength, Gait , Safety, Therapeutic Exercise, Transfers Treatment Duration: Jan 05, 2018 Frequency: 6 times per week Estimated Hrs Per Day: .25 hour per day Patient and/or Family Agrees t: Yes Safety Risks/Education Patient Education: Safety Issues Teaching Recipient: Patient Teaching Methods: Discussion Response to Teaching: Reinforcement Needed Time/GCodes Time In: 1310 Time Out: 1323 Total Billed Treatment Time: 13 Total Billed Treatment 1 visit EVLowC 13 min G Codes Necessary: Yes PT/OT Therapy GCodes Therapy Functional Limitation: Physical Therapy Test(s)/Tool used to determine: Level of Assistance Scale Functional Limitation-Current Charge Code: MOBCUR Modifier: CJ Functional Limitation-Goal Charge Code: LUIS Modifier: SOPHIA PERES PT Dec 27, 2017 13:53
--- NOTE | 2017-12-27 16:25 | Diagnostic Imaging Report ---
PROCEDURE: MR imaging of the brain without contrast. TECHNIQUE: Multiplanar, multisequence MR imaging of the brain was performed without contrast. INDICATION: Memory loss, confusion. FINDINGS: The previous MRI brain exam performed on 06/22/2012 noted a small acute non-hemorrhagic infarct in the periventricular white matter adjacent to the right lateral ventricle. The CT head exam performed on 12/26/2017 failed to show any sign of an acute abnormality. There did appear to be new areas of diminished density in the periventricular white matter bilaterally and in the left basal ganglia and left temporal lobe. On the diffusion series of this exam, there is a small focal area of increased signal in the right parietal lobe near the vertex of the skull. This does suggest a small acute/subacute non-hemorrhagic infarct. There is also a vague area of slightly increased density in the periventricular white matter on the left at the level of the lateral ventricles. This would correspond to one of the areas of low density in the periventricular white matter seen on the CT head exam. I suspect that this is a subacute infarct as it is not very intense. There is no sign of hemorrhage, and there is no shift of the midline. The ventricles are not abnormally dilated and stable in size when compared to the prior study. The FLAIR series shows focal and diffuse areas of increased signal in the periventricular white matter bilaterally. These findings are nonspecific but may be secondary to encephalomalacia from microvascular ischemia. These findings are more conspicuous than on the prior exam, and new areas of abnormal signal have developed in the left basal ganglia and left temporal lobe. This would correspond to the findings on the CT exam. The ventricles are not abnormally dilated. There is cortical atrophy present. The degree of atrophy is consistent with the patient's age. The sella is not enlarged, and the expected carotid flow voids are evident bilaterally. The orbits are symmetrical. The sinuses are generally clear. The seventh and eighth nerve complexes are unremarkable. IMPRESSION: 1. There is a small acute/subacute non-hemorrhagic infarct in the right parietal lobe near the vertex of the skull. There also appears to be a small subacute non-hemorrhagic infarct in the periventricular white matter on the left. There is no sign of hemorrhage. 2. There is no mass lesion identified. 3. There has been an increase in the signal in the periventricular white matter and left basal ganglia and left temporal lobe on the FLAIR series since the prior exam. These findings are most likely due to areas of encephalomalacia from non-hemorrhagic infarcts. 4. These results were called to Dr. Susan Mcneal. CRITICAL FINDING Dictated by: Dictated on workstation # [id number]
[2017-12-27] MEDS ORDERED: LOSARTAN 50 MG (COZAAR) TAB PO NR (16:45)
[2017-12-27] MEDS ORDERED: metFORMIN 500 MG (GLUCOPHAGE) TAB PO SCH (17:00)
[2017-12-27] MEDS: [UNRECOGNIZED DRUG - OTHER] PO SCH (17:20)
[2017-12-27] MEDS: metFORMIN 500 MG (GLUCOPHAGE) TAB PO SCH (17:21)
[2017-12-27] MEDS ORDERED: ATORVASTATIN 40 MG (LIPITOR) TABLET PO SCH (21:00)
[2017-12-27] MEDS ORDERED: ASPIRIN E.C. 81 MG (ECOTRIN) TAB PO SCH (21:00)
[2017-12-27] MEDS ORDERED: [UNRECOGNIZED DRUG - OTHER] PO SCH (21:00)
[2017-12-27] MEDS: ALPRAZolam 0.5 MG (XANAX) TAB PO PRN (21:05)
[2017-12-27] MEDS: ASPIRIN E.C. 81 MG (ECOTRIN) TAB PO SCH (21:06)
[2017-12-27] MEDS: ATORVASTATIN 40 MG (LIPITOR) TABLET PO SCH (21:15)
[2017-12-28] VITALS (7 sets, daily range): BP systolic 168–190; BP diastolic 86–100
[2017-12-28] MEDS: [UNRECOGNIZED DRUG - OTHER] PO SCH ×2 (06:04→18:03)
[2017-12-28] MEDS: metFORMIN 500 MG (GLUCOPHAGE) TAB PO SCH ×2 (06:05→18:03)
[2017-12-28] MEDS: inSUlin ASPART (NovoLOG) 1 UNIT/0.01 ML (CHARGE PER UNIT) SC SCH ×4 (06:06→21:00)
[2017-12-28 06:54] LABS: BASOPHILS % (AUTO) 0 % (0-10); EOSINOPHILS # (AUTO) 0.1 10^3/uL (0.0-0.3); EOSINOPHILS % (AUTO) 1 % (0-10); HEMATOCRIT 42 % (35-52); HEMOGLOBIN 14.3 G/DL (11.5-16.0); LYMPHOCYTES # (AUTO) 1.9 X 10^3 (1.0-4.0); LYMPHOCYTES % (AUTO) 22 % (12-44); MEAN CORPUSCULAR HEMOGLOBIN 28 PG (25-34); MEAN CORPUSCULAR HGB CONC 34 G/DL (32-36); MEAN CORPUSCULAR VOLUME 82 FL (80-99); MEAN PLATELET VOLUME 11.8 FL (7.4-10.4); MONOCYTES # (AUTO) 0.7 X 10^3 (0.0-1.0); MONOCYTES % (AUTO) 9 % (0-12); NEUTROPHILS # (AUTO) 5.6 X 10^3 (1.8-7.8); NEUTROPHILS % (AUTO) 67 % (42-75); PLATELET COUNT 254 10^3/uL (130-400); RED CELL DISTRIBUTION WIDTH 15.1 % (10.0-14.5); WHITE BLOOD COUNT 8.4 10^3/uL (4.3-11.0)
[2017-12-28 07:17] LABS: BUN/CREATININE RATIO 9; CALCIUM 9.4 MG/DL (8.5-10.1); CARBON DIOXIDE 25 MMOL/L (21-32); CHLORIDE 100 MMOL/L (98-107); CREATININE SERUM 0.77 MG/DL (0.60-1.30); GFR ESTIMATED > 60; GLUCOSE 204 MG/DL (70-105); MAGNESIUM 1.5 MG/DL (1.8-2.4); POTASSIUM 3.5 MMOL/L (3.6-5.0); SODIUM 140 MMOL/L (135-145)
[2017-12-28] MEDS ORDERED: LOSARTAN 50 MG (COZAAR) TAB PO SCH (09:00)
[2017-12-28] MEDS: meTOprolol SUCCINATE 100 MG (TOPROL XL) TAB PO SCH (09:46)
[2017-12-28] MEDS: amLODIPine 10 MG (NORVASC) TAB PO SCH (09:46)
[2017-12-28] MEDS: LOSARTAN 50 MG (COZAAR) TAB PO SCH (09:48)
--- NOTE | 2017-12-28 10:07 | Physical Therapy Daily Note ---
PT Daily Note-Current Subjective Patient agrees to PT. Spouse present. Pain Numeric Pain Scale: 0-No Pain Location: No Pain Reported Mental Status Patient Orientation: Confused Attachments: IV Transfers Functional [place] Measure 0=Not Assessed/NA 4=Minimal Assistance 1=Total Assistance 5=Supervision or Setup 2=Maximal Assistance 6=Modified [place] 3=Moderate Assistance 7=Complete IndependenceIRFPAI Quality Coding Scale 6 Independent with activity with or without an assistive device 5 Patient requires set up or clean up by helper. Patient completes activity by themselves 4 Supervision or touching assist (CGA). [place] provide cues , steadying assist 3 The helper provides less than half the effort to complete the activity 2 The helper provides more than half the effort to complete the activity 1 Dependent. The helper does all the effort to complete an activity 7 Patient refused to complete or attempt activity 9 The patient did not perform the activity before the current illness or injury 88 Not attempted due to Medical conditions or safety concerns Transfers (B, C, W/C) (FIM): 7 Scootin Sit to/from Stand: 7 Weight Bearing Right Lower Extremity: Right Weight Bearing/Tolerated Left Lower Extremity: Left Weight Bearing/Tolerated Gait Training Gait (FIM): 5 Distance (FIM): 3=150 ft Distance: 500' Gait Level of Assist: 5 (for safety due to confusion, otherwise, patient is independent) Gait Assistive Device: None safe and functional independent gait sequence, SBA for safety due to confusion Assessment Patient is currently at PLOF with gross motor skills. Patient's cognitive function continues to be delayed. PT Demolition Specialist Goals Demolition Specialist Goals PT Demolition Specialist Goals Time Frame: Jan 05, 2018 Transfers (B,C,W/C) (FIM): 7 Gait (FIM): 7 Gait distance (FIM): 3=150 ft Gait Level of Assist: 7 Gait Assistive Device: None PT Plan Treatment/Plan Treatment Plan: Continue Plan of Care, Modify Plan, see comments (frequency to 5/wk) Treatment Plan: Education, Functional Activity Shiv, Functional Strength, Gait , Safety, Therapeutic Exercise, Transfers Treatment Duration: Jan 05, 2018 Frequency: 5 times per week Estimated Hrs Per Day: .25 hour per day Patient and/or Family Agrees t: Yes Time/GCodes Time In: 900 Time Out: 910 Total Billed Treatment Time: 10 Total Billed Treatment 1 visit FA 10 min PT/OT Therapy GCodes Therapy Functional Limitation: Physical Therapy Test(s)/Tool used to determine: Level of Assistance Scale Functional Limitation-Current Charge Code: MOBCUAltagracia Modifier: ALEISHA Functional Limitation-Goal Charge Code: MOBTHIERNOAL Modifier: SOPHIA PERES PT Dec 28, 2017 10:07
[2017-12-28] MEDS: NS IV 1000 ML 1,000 ML IV SCH (11:40)
--- NOTE | 2017-12-28 14:51 | Occupational Ther Daily Note ---
OT Current Status-Daily Note Subjective Pt. is confused. When asked how she is doing, pt. begins to talk about "maps." Appearance Pt. up in chair. Spouse in room. Mental Status/Objective Patient Orientation: Confused Functional [place] Measure 0=Not Assessed/NA 4=Minimal Assistance 1=Total Assistance 5=Supervision or Setup 2=Maximal Assistance 6=Modified [place] 3=Moderate Assistance 7=Complete [place] Attachments: IV ADL-Treatment Lower Body Dressing (FIM): 5 (SBA and cues to doff/don socks while seated in chair.) Other Treatment OT talks with pt. and spouse in room regarding pt's progress. Pt. is very confused. Talks about maps and does not make sense. Spouse states that pt. has been able to feed herself, and is walking well with PT. Dr. Catalan comes into room to speak with pt. and spouse. Will check back on pt. as time allows. Education OT Patient Education: Correct positioning, Modified ADL techniques, Progress toward Goal/Update tx plan, Purpose of tx/functional activities, Reviewed precautions, Rehab process, Safety issues, Transfer techniques Teaching Recipient: Patient, Significant Other Teaching Methods: Demonstration, Discussion Response to Teaching: Verbalize Understanding, Return Demonstration OT Short Term Goals Short Term Goals 1=Demonstrate adherence to instructed precautions during ADL tasks. 2=Patient will verbalize/demonstrate understanding of assistive devices/ modifications for ADL. 3=Patient will improve strength/tolerance for activity to enable patient to perform ADL's. OT Detention Goals Detention Goals Time Frame: Jan 10, 2018 Eating (FIM): 6 Grooming(FIM): 6 Bathing(FIM): 5 Upper Body Dressing(FIM): 6 Lower Body Dressing(FIM): 6 Toileting(FIM): 6 Toilet/Commode Transfer(FIM): 6 1=Demonstrate adherence to instructed precautions during ADL tasks. 2=Patient will verbalize/demonstrate understanding of assistive devices/ modifications for ADL. 3=Patient will improve strength/tolerance for activity to enable patient to perform ADL's. OT Education/Plan Problem List/Assessment Assessment: Decreased Activ Tolerance, Impaired I ADL's, Impaired Self-Care Skills Discharge Recommendations Plan/Recommendations: Continue POC Therapy D/C Recommendations: 24 hr Supervision Barriers to Progress confusion Target Placement To be determined. Treatment Plan/Plan of Care Treatment,Training & Education: Yes Patient would benefit from OT for education, treatment and training to promote independence in ADL's, mobility, safety and/or upper extremity function for ADL' s. Plan of Care: ADL Retraining, Functional Mobility, UE Funct Exercise/Act Treatment Duration: Jan 10, 2018 Frequency: 5 times per week Estimated Hrs Per Day: .25 hour per day Agreement: Yes Rehab Potential: Fair Time/GCodes Start Time: 14:00 Stop Time: 14:25 Total Time Billed (hr/min): 25 Billed Treatment Time 1, ADL x 15minutes, [id number] PT/OT Therapy GCodes Therapy Functional Limitation: Physical Therapy Test(s)/Tool used to determine: Level of Assistance Scale Functional Limitation-Current Charge Code: MOBCUR Modifier: CJ Functional Limitation-Goal Charge Code: MOBGOAL Modifier: LOIS FERNÁNDEZ OT Dec 28, 2017 14:51
--- NOTE | 2017-12-28 15:04 | Progress Note-Hospitalist ---
Standard Progress Note Progress Notes/Assess & Plan Date Seen 12/28/17 Time Seen by Provider: 14:58 Diagnosis Generalized weakness Assess & Plan/Chief Complaint The patient is a 67-year-old white female whose is known to me. She was admitted after presenting with a generalized weakness and confusion. Her states that this had come on over a period of time perhaps as long as 2 weeks. There had been 3-4 falls during this period of time. At the time of presentation she was able very poor historian. She is somewhat reticent today but does not reveal this. Her believes that she is somewhat better but certainly not back to her baseline. Physical exam: She is pleasant and neatly dressed. Lungs are clear to auscultation. CV is regular without murmur. Extremities show no pedal edema. Impression: Diabetes mellitus type II 2.hypomagnesemia. 3.confusion of unknown etiology Plan: Continue IV magnesium supplements. Note: She is apparently not taking any diuretics. Her states that in the past when she tried oral magnesium-containing supplements she developed rather significant diarrhea and her serum magnesium was not improved. Labs Laboratory Tests 12/26/17 15:02 12/27/17 05:46 12/28/17 06:25 JORDAN JEREZ MD Dec 28, 2017 15:04
[2017-12-28] MEDS: MAGNESIUM 1 GM/100 ML IVPB 100 ML IV SCH ×2 (18:58→19:22)
[2017-12-28] MEDS: NITROGLYCERIN 2% OINT 1 GM UNIT DOSE PACKET TOP PRN (19:22)
[2017-12-28] MEDS: ALPRAZolam 0.5 MG (XANAX) TAB PO PRN (20:52)
[2017-12-28] MEDS: ATORVASTATIN 40 MG (LIPITOR) TABLET PO SCH (20:52)
[2017-12-28] MEDS: ASPIRIN E.C. 81 MG (ECOTRIN) TAB PO SCH (20:53)
[2017-12-29] VITALS: BP 185/88
[2017-12-29] MEDS: NITROGLYCERIN 2% OINT 1 GM UNIT DOSE PACKET TOP PRN (01:48)
[2017-12-29] MEDS: metFORMIN 500 MG (GLUCOPHAGE) TAB PO SCH (06:04)
[2017-12-29] MEDS: inSUlin ASPART (NovoLOG) 1 UNIT/0.01 ML (CHARGE PER UNIT) SC SCH ×2 (06:04→11:55)
[2017-12-29] MEDS: NS IV 1000 ML 1,000 ML IV SCH (06:05)
[2017-12-29] MEDS: [UNRECOGNIZED DRUG - OTHER] PO SCH (06:05)
[2017-12-29] MEDS: ACETAMINOPHEN 500 MG TAB (TYLENOL) PO PRN (06:09)
[2017-12-29 06:27] VITALS: BP 182/116
[2017-12-29 07:57] VITALS: BP 179/89
[2017-12-29] MEDS: meTOprolol SUCCINATE 100 MG (TOPROL XL) TAB PO SCH (10:10)
[2017-12-29] MEDS: amLODIPine 10 MG (NORVASC) TAB PO SCH (10:10)
[2017-12-29] MEDS: LOSARTAN 50 MG (COZAAR) TAB PO SCH (10:10)
[2017-12-29 12:00] VITALS: BP 180/90
--- NOTE | 2017-12-29 12:15 | Physical Therapy Daily Note ---
PT Daily Note-Current Subjective Pt sitting in recliner upon arrival. Pt agrees to PT. Pain Location: No Pain Reported Mental Status Patient Orientation: Person, Place, Situation Attachments: IV Transfers Functional [place] Measure 0=Not Assessed/NA 4=Minimal Assistance 1=Total Assistance 5=Supervision or Setup 2=Maximal Assistance 6=Modified [place] 3=Moderate Assistance 7=Complete IndependenceIRFPAI Quality Coding Scale 6 Independent with activity with or without an assistive device 5 Patient requires set up or clean up by helper. Patient completes activity by themselves 4 Supervision or touching assist (CGA). [place] provide cues , steadying assist 3 The helper provides less than half the effort to complete the activity 2 The helper provides more than half the effort to complete the activity 1 Dependent. The helper does all the effort to complete an activity 7 Patient refused to complete or attempt activity 9 The patient did not perform the activity before the current illness or injury 88 Not attempted due to Medical conditions or safety concerns Scootin Sit to/from Stand: 5 Weight Bearing Right Lower Extremity: Right Weight Bearing/Tolerated Left Lower Extremity: Left Weight Bearing/Tolerated Gait Training Distance (FIM): 3=150 ft Distance: 500' Gait Level of Assist: 4 Gait Persons Needed: 1 Gait Assistive Device: FWW Pt has times of knees buckling and giving out. Pt is able to correct or catch herself although pt doesn't know when it going to happen. Pt is improving with cognitive processes. Treatments Pt & Sp give SILICA FILTER OPERATOR report on what is going on currently with cognitive improvements as well as ambulation although still CGA for safety since knees buckle. Pt transfers from recliner to standing using FWW at close SBA. Pt ambulates in hallway using FWW at SBA. Pt returns to room to rest in recliner at end of tx with all needs met. Assessment Current Status: Good Progress Pt is improving both with cognitive function and ambulation although still having moments where knees buckle. PT Detention Goals Storeroom Clerk Goals PT Detention Goals Time Frame: Jan 05, 2018 Transfers (B,C,W/C) (FIM): 7 Gait (FIM): 7 Gait distance (FIM): 3=150 ft Gait Level of Assist: 7 Gait Assistive Device: None PT Plan Problem List Problem List: Activity Tolerance, Functional Strength, Safety, Balance, Gait Treatment/Plan Treatment Plan: Continue Plan of Care Treatment Plan: Education, Functional Activity Shiv, Functional Strength, Gait , Safety, Therapeutic Exercise, Transfers Treatment Duration: Jan 05, 2018 Frequency: 5 times per week Estimated Hrs Per Day: .25 hour per day Patient and/or Family Agrees t: Yes Safety Risks/Education Patient Education: Gait Training, Transfer Techniques, Correct Positioning, Safety Issues Teaching Recipient: Patient Teaching Methods: Discussion Response to Teaching: Verbalize Understanding Time/GCodes Time In: 911 Time Out: 934 Total Billed Treatment Time: 23 Total Billed Treatment 1, GT (15m) & FA (8m) PT/OT Therapy GCodes Therapy Functional Limitation: Physical Therapy Test(s)/Tool used to determine: Level of Assistance Scale Functional Limitation-Current Charge Code: MOBCUR Modifier: ALEISHA Functional Limitation-Goal Charge Code: MOBGOAL Modifier: SABA MARCH SILICA FILTER OPERATOR Dec 29, 2017 12:15
--- NOTE | 2017-12-29 13:51 | Progress Note-Hospitalist ---
Standard Progress Note Progress Notes/Assess & Plan Date Seen 12/29/17 Time Seen by Provider: 13:46 Diagnosis Generalized weakness Assess & Plan/Chief Complaint The patient has now achieved a normal magnesium level. She is more talkative today. She however has trouble with linear thought. Dementia becomes a real consideration here. Physical exam: She is sitting up in the bedside chair and is alert and conversant. Her thought process remains troubling however. Lungs are clear to auscultation. CV is regular without murmur. Abdomen is soft. Extremities show no pedal edema. Note: Her blood pressure is considerably elevated over the past 24 hours as compared to previously. Her meds were reviewed again and no evidence of diuretic use was determined. Her clonidine was discontinued but she remains on amlodipine 10 mg daily, metoprolol XL 100 mg daily and losartan 50 mg daily. Although the losartan would qualify for the purposes of diabetes and an Norberto or arb is considered under powered as an effective blood pressure agent Impression: Hypomagnesemia etiology unknown. 2.confusion versus dementia. 3.diabetes type II insulin requiring. 4.hypertension. Plan: See discharge sequence for medications and routines. Labs Laboratory Tests 12/28/17 06:25 JORDAN JEREZ MD Dec 29, 2017 13:51
--- NOTE | 2017-12-29 13:58 | Discharge Instructions ---
Discharge Instructions Patient Instructions Patient Instructions: SEE Dr. Goldsmith within the week. Medications as listed on the discharge sequence On visit with Dr. Goldsmith, discuss specialty referral for consideration of mental status/memory loss Activity & Diet Discharge Diet: ADA Diet JORDAN JEREZ MD Dec 29, 2017 13:58
[2017-12-29 15:30] VITALS: BP 180/90
== END 2017-12-29 15:30 | disposition home or self-care (01) | DRG 641 ==
LOC: EDUNIT# 14:20 → ER 14:23 → 4TH 17:55 → UNDOADMOB 17:55 → 4TH 18:35 → UNDOADMOB 18:38 → 4TH 12-27 12:00 → OBSVTOIN 12-28 13:24 → INTOOBSV 12-28 13:24 → UNDODISIN 12-29 15:30
PROVIDERS: ADMIT Family Medicine; ATTEND Family Medicine
DX: E83.42 Hypomagnesemia (principal); R41.0 Disorientation, unspecified; R53.1 Weakness; I16.0 Hypertensive urgency; E11.40 Type 2 diabetes mellitus with diabetic neuropathy, unspecified; R29.6 Repeated falls; F41.9 Anxiety disorder, unspecified; J30.2 Other seasonal allergic rhinitis; Z91.19 Patient's noncompliance with other medical treatment and regimen; Z79.4 Long term (current) use of insulin; Z86.73 Personal history of transient ischemic attack (TIA), and cerebral infarction without residual deficits; Z86.69 Personal history of other diseases of the nervous system and sense organs
CPT/HCPCS: 36415; 70450; 70551; 80048; 80053; 80061; 81000; 82550; 82553; 82607; 82962; 83735; 83874; 84443; 84484; 85025; 85379; 93005; G0378

== ENCOUNTER 2018-09-23 06:26 | Inpatient (IN) | payer MEDICARE ==
[2018-09-23] VITALS (14 sets, daily range): BP systolic 132–239; BP diastolic 73–131
[~2018-09-23] VITALS: Ht 162.6 cm; Wt 57.8 kg
[~2018-09-23 06:26] MED LIST changes: -AMLO5TAB2 PO; +AMLO5TAB7 PO; +ASPI-983 PO; +ASPI-999 PO; +CHOL200078 PO; +CHOL5000 PO; +CLON0.1T PO; +ENZY1CAP3 PO; -GEMF600T3 PO; +GEMF600T4 PO; +INSU100I29 SC; +LEVO1CAP11 PO; +LOSA50TA7 PO; +MAGNESIUM GLUCONATE PO; +METF-397 PO; +METO-395 PO; +OMEG100T PO
[2018-09-23] MEDS ORDERED: CLON0.1T PO (06:34)
--- OUTSIDE RECORDS SUMMARY | 2018-09-23 06:34 | XMS REPORT | Continuity of Care Document ---
Author Author [facility] Organization [facility] Address Unknown Phone Unavailable Allergies Active Description Code Type Severity Reaction Onset Reported/Identified Relationship to Patient Clinical Status Yes iodine [id number] Drug Allergy Severe migraine headac 07/11/2010 Yes lorazepam [id number] Drug Allergy Severe N/A 08/12/2010 Yes zolpidem [id number] Drug Allergy Severe N/A 08/12/2010 Yes codeine [id number] Drug Allergy Mild INCREASED ACTIV 08/13/2010 Yes erythromycin base [id number] Drug Allergy Mild NAUSEA 08/13/2010 Yes Heparin Analogues [id number] Drug Allergy Unknown N/A 08/13/2010 Yes canagliflozin [id number] Drug Allergy Unknown ANAPHYLAXIS 07/21/2015 Yes canagliflozin [id number] Drug Allergy Severe ANAPHYLAXIS 07/22/2015 Yes lorazepam [id number] Drug Allergy Severe ELEVATED BLOOD 07/22/2015 Yes zolpidem [id number] Drug Allergy Severe SLEEP WALK 07/22/2015 Medications [...] Ot 473.2 CHR ETHMOIDAL SINUSITIS 07/29/2015 DECLAN SANOTS MD Ot 473.3 CHR SPHENOIDAL SINUSITIS 07/29/2015 [...] MD Ot I63.9 05/22/2016 TATE PORTER, SHONDA Raymudno Ot 577.2 PANCREAT CYST/PSEUDOCYST 05/22/2016 TATE PORTER, [...] MD Ot M54.16 RADICULOPATHY, LUMBAR REGION 06/24/2016 JENYN SUN MD Ot M54.5 LOW BACK PAIN [...] SKIN 06/03/2017 SOPHIA MONTE MD Ot Z79.84 AMPHIBIAN CREWMEMBER (CURRENT) USE OF ORAL HYPOGLYC 06/03/2017 SOPHIA MONTE MD Ot Z79.899 OTHER DETENTION (CURRENT) DRUG THERAPY 06/16/2017 OTHER, UNLISTED Ot [...] MACKENZIE APRN Ot 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 12/29/2017 NATI GARCIA MD Ot 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 MELLITUS WITH DIABETIC N 12/29/2017 NATI GARCIA MD Ot E83.42 HYPOMAGNESEMIA 12/29/2017 NATI GARCIA MD Ot F41.9 ANXIETY DISORDER, UNSPECIFIED 12/29/2017 NATI GARCIA MD Ot I16.0 HYPERTENSIVE URGENCY 12/29/2017 NATI GARCIA MD Ot J30.2 OTHER SEASONAL ALLERGIC RHINITIS 12/29/2017 NATI GARCIA MD Ot R29.6 REPEATED FALLS 12/29/2017 NATI GARCIA MD Ot R41.0 DISORIENTATION, UNSPECIFIED 12/29/2017 NATI GARCIA MD Ot R53.1 WEAKNESS 12/29/2017 NATI GARCIA MD Ot Z79.4 AMPHIBIAN CREWMEMBER (CURRENT) USE OF INSULIN 12/29/2017 NATI GARCIA MD Ot Z79.84 DETENTION (CURRENT) USE OF ORAL HYPOGLYC 12/29/2017 NATI GARCIA MD Ot Z86.69 PERSONAL HISTORY OF DIS OF THE NERVOUS S 12/29/2017 NATI GARCIA MD Ot Z86.73 PRSNL HX OF TIA (TIA), AND CEREB INFRC W 12/29/2017 NATI GARCIA MD Ot Z91.19 PATIENT'S NONCOMPLIANCE W [facility] 12/30/2017 NATI GARCIA MD Ot 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 MELLITUS WITH DIABETIC N 12/30/2017 NATI GARCIA MD Ot E83.42 HYPOMAGNESEMIA 12/30/2017 NATI GARCIA MD Ot F41.9 ANXIETY DISORDER, UNSPECIFIED 12/30/2017 NATI GARCIA MD Ot I16.0 HYPERTENSIVE URGENCY 12/30/2017 NATI GARCIA MD Ot J30.2 OTHER SEASONAL ALLERGIC RHINITIS 12/30/2017 NATI GARCIA MD Ot R29.6 REPEATED FALLS 12/30/2017 NATI GARCIA MD Ot R41.0 DISORIENTATION, UNSPECIFIED 12/30/2017 NATI GARCIA MD Ot R53.1 WEAKNESS 12/30/2017 NATI GARCIA MD Ot Z79.84 AMPHIBIAN CREWMEMBER (CURRENT) USE OF ORAL HYPOGLYC 12/30/2017 NATI GARCIA MD Ot Z86.69 PERSONAL HISTORY OF DIS OF THE NERVOUS S 12/30/2017 NATI GARCIA MD Ot Z86.73 PRSNL HX OF TIA (TIA), AND CEREB INFRC W 12/30/2017 NATI GARCIA MD Ot Z91.19 PATIENT'S NONCOMPLIANCE W [facility] 12/30/2017 NATI GARCIA MD Ot 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 MELLITUS WITH DIABETIC N 12/30/2017 NATI GACRIA MD Ot E83.42 HYPOMAGNESEMIA 12/30/2017 NATI GARCIA MD Ot F41.9 ANXIETY DISORDER, UNSPECIFIED 12/30/2017 NATI GARCIA MD Ot I16.0 HYPERTENSIVE URGENCY 12/30/2017 NATI GARCIA MD, Ot J30.2 OTHER SEASONAL ALLERGIC RHINITIS 12/30/2017 NATI GARCIA MD, Ot R29.6 REPEATED FALLS 12/30/2017 NATI GARCIA MD, Ot R41.0 DISORIENTATION, UNSPECIFIED 12/30/2017 NATI GARCIA MD, Ot R53.1 WEAKNESS 12/30/2017 NATI GARCIA MD, Ot Z79.84 DETENTION (CURRENT) USE OF ORAL HYPOGLYC 12/30/2017 NATI GARCIA MD, Ot Z86.69 PERSONAL HISTORY OF DIS OF THE NERVOUS S 12/30/2017 NATI GARCIA MD, Ot Z86.73 PRSNL HX OF TIA (TIA), AND CEREB INFRC W 12/30/2017 NATI GARCIA MD, Ot Z91.19 PATIENT'S NONCOMPLIANCE W [facility] Procedures There is no data. Results Test [...] <=0.05 miu/l (units/ volume) 0.41 u[iU]/mL 0.35-4.94 Capillary blood glucose measurement by glucometer (mass/volume) - 12/26/17 19: 55 Capillary blood glucose measurement by glucometer (mass/volume) 194 mg/dL 70-110 Capillary blood glucose measurement by glucometer (mass/volume) - 12/27/17 05: 06 Capillary blood glucose measurement by glucometer (mass/volume) 123 mg/dL 70-110 Complete blood count (CBC) with automated white blood cell (WBC) differential - 12/27/17 05:46 Blood leukocytes automated count (number/volume) 4.8 10*3/uL 4.3-11.0 Blood erythrocytes automated count (number/volume) 4.33 10*6/uL 4.35-5.85 Venous blood hemoglobin measurement (mass/volume) 12.1 g/dL 11.5-16.0 Blood hematocrit (volume fraction) 36 % 35-52 Automated erythrocyte mean corpuscular volume 83 [foz_us] 80-99 Automated erythrocyte mean corpuscular hemoglobin (mass per erythrocyte) 28 pg 25-34 Automated erythrocyte mean corpuscular hemoglobin concentration measurement ( mass/volume) 34 g/dL 32-36 Automated erythrocyte distribution width ratio 15.0 % 10.0-14.5 Automated blood platelet count (count/volume) 190 10*3/uL 130-400 Automated blood platelet mean volume measurement 11.7 [foz_us] 7.4-10.4 Automated blood neutrophils/100 leukocytes 52 % 42-75 Automated blood lymphocytes/100 leukocytes 37 % 12-44 Blood monocytes/100 leukocytes 9 % 0-12 Automated blood eosinophils/100 leukocytes 2 % 0-10 Automated blood basophils/100 leukocytes 0 % 0-10 Blood neutrophils automated count (number/volume) 2.5 10*3 1.8-7.8 Blood lymphocytes automated count (number/volume) 1.7 10*3 1.0-4.0 Blood monocytes automated count (number/volume) 0.4 10*3 0.0-1.0 Automated eosinophil count 0.1 10*3/uL 0.0-0.3 Automated blood basophil count (count/volume) 0.0 10*3/uL 0.0-0.1 Comprehensive metabolic panel - 12/27/17 05:46 Serum or plasma sodium measurement (moles/volume) 141 mmol/L 135-145 Serum or plasma potassium measurement (moles/volume) 3.7 mmol/L 3.6-5.0 Serum or plasma chloride measurement (moles/volume) 107 mmol/L 98-107 Carbon dioxide 20 mmol/L 21-32 Serum or plasma anion gap determination (moles/volume) 14 mmol/L 5-14 Serum or plasma urea nitrogen measurement (mass/volume) 16 mg/dL 7-18 Serum or plasma creatinine measurement (mass/volume) 0.73 mg/dL 0.60-1.30 Serum or plasma urea nitrogen/creatinine mass ratio 22 NRG Serum or plasma creatinine measurement with calculation of estimated glomerular filtration rate > NRG Serum or plasma glucose measurement (mass/volume) 124 mg/dL 70-105 Serum or plasma calcium measurement (mass/volume) 8.5 mg/dL 8.5-10.1 Serum or plasma total bilirubin measurement (mass/volume) 0.3 mg/dL 0.1-1.0 Serum or plasma alkaline phosphatase measurement (enzymatic activity/volume) 64 U/L 40-136 Serum or plasma aspartate aminotransferase measurement (enzymatic activity/ volume) 13 U/L 5-34 Serum or plasma alanine aminotransferase measurement (enzymatic activity/volume ) 20 U/L 0-55 Serum or plasma protein measurement (mass/volume) 6.0 g/dL 6.4-8.2 Serum or plasma albumin measurement (mass/volume) 3.6 g/dL 3.2-4.5 Magnesium - 12/27/17 05:46 Magnesium 1.5 mg/dL 1.8-2.4 Lipid 1996 panel - 12/27/17 05:46 Serum or plasma triglyceride measurement (mass/volume) 543 mg/dL <150 Serum or plasma cholesterol measurement (mass/volume) 228 mg/dL < 200 Serum or plasma cholesterol in HDL measurement (mass/volume) 35 mg/ dL 40-60 Cholesterol in LDL [mass/volume] in serum or plasma by direct assay 90 mg/dL 1-129 Serum or plasma cholesterol in VLDL measurement (mass/volume) TNP 5-40 Cyanocobalamin measurement - 12/27/17 05:46 Vitamin B12 > pg/mL 200-1000 Capillary blood glucose measurement by glucometer (mass/volume) - 12/27/17 10: 48 Capillary blood glucose measurement by glucometer (mass/volume) 217 mg/dL 70-110 Capillary blood glucose measurement by glucometer (mass/volume) - 12/27/17 15: 47 Capillary blood glucose measurement by glucometer (mass/volume) 120 mg/dL 70-110 Capillary blood glucose measurement by glucometer (mass/volume) - 12/27/17 20: 44 Capillary blood glucose measurement by glucometer (mass/volume) 162 mg/dL 70-110 Capillary blood glucose measurement by glucometer (mass/volume) - 12/28/17 05: 01 Capillary blood glucose measurement by glucometer (mass/volume) 225 mg/dL 70-110 Complete blood count (CBC) with automated white blood cell (WBC) differential - 12/28/17 06:25 Blood leukocytes automated count (number/volume) 8.4 10*3/uL 4.3-11.0 Blood erythrocytes automated count (number/volume) 5.10 10*6/uL 4.35-5.85 Venous blood hemoglobin measurement (mass/volume) 14.3 g/dL 11.5-16.0 Blood hematocrit (volume fraction) 42 % 35-52 Automated erythrocyte mean corpuscular volume 82 [foz_us] 80-99 Automated erythrocyte mean corpuscular hemoglobin (mass per erythrocyte) 28 pg 25-34 Automated erythrocyte mean corpuscular hemoglobin concentration measurement ( mass/volume) 34 g/dL 32-36 Automated erythrocyte distribution width ratio 15.1 % 10.0-14.5 Automated blood platelet count (count/volume) 254 10*3/uL 130-400 Automated blood platelet mean volume measurement 11.8 [foz_us] 7.4-10.4 Automated blood neutrophils/100 leukocytes 67 % 42-75 Automated blood lymphocytes/100 leukocytes 22 % 12-44 Blood monocytes/100 leukocytes 9 % 0-12 Automated blood eosinophils/100 leukocytes 1 % 0-10 Automated blood basophils/100 leukocytes 0 % 0-10 Blood neutrophils automated count (number/volume) 5.6 10*3 1.8-7.8 Blood lymphocytes automated count (number/volume) 1.9 10*3 1.0-4.0 Blood monocytes automated count (number/volume) 0.7 10*3 0.0-1.0 Automated eosinophil count 0.1 10*3/uL 0.0-0.3 Automated blood basophil count (count/volume) 0.0 10*3/uL 0.0-0.1 Whole blood basic metabolic panel - 12/28/17 06:25 Serum or plasma sodium measurement (moles/volume) 140 mmol/L 135-145 Serum or plasma potassium measurement (moles/volume) 3.5 mmol/L 3.6-5.0 Serum or plasma chloride measurement (moles/volume) 100 mmol/L 98-107 Carbon dioxide 25 mmol/L 21-32 Serum or plasma anion gap determination (moles/volume) 15 mmol/L 5-14 Serum or plasma urea nitrogen measurement (mass/volume) 7 mg/dL 7-18 Serum or plasma creatinine measurement (mass/volume) 0.77 mg/dL 0.60-1.30 Serum or plasma urea nitrogen/creatinine mass ratio 9 NRG Serum or plasma creatinine measurement with calculation of estimated glomerular filtration rate > NRG Serum or plasma glucose measurement (mass/volume) 204 mg/dL 70-105 Serum or plasma calcium measurement (mass/volume) 9.4 mg/dL 8.5-10.1 Magnesium - 12/28/17 06:25 Magnesium 1.5 mg/dL 1.8-2.4 Capillary blood glucose measurement by glucometer (mass/volume) - 12/28/17 10: 55 Capillary blood glucose measurement by glucometer (mass/volume) 201 mg/dL 70-110 Capillary blood glucose measurement by glucometer (mass/volume) - 12/28/17 15: 21 Capillary blood glucose measurement by glucometer (mass/volume) 152 mg/dL 70-110 Capillary blood glucose measurement by glucometer (mass/volume) - 12/28/17 20: 11 Capillary blood glucose measurement by glucometer (mass/volume) 307 mg/dL 70-110 Capillary blood glucose measurement by glucometer (mass/volume) - 12/29/17 05: 51 Capillary blood glucose measurement by glucometer (mass/volume) 211 mg/dL 70-110 Capillary blood glucose measurement by glucometer (mass/volume) - 12/29/17 10: 45 Capillary blood glucose measurement by glucometer (mass/volume) 365 mg/dL 70-110 Magnesium - 12/29/17 12:10 Magnesium 2.0 mg/dL 1.8-2.4 Encounters ACCT No. Visit Date/Time Discharge Status Pt. Type Provider Facility Loc./Unit Complaint [id number] 12/28/2017 13:24:00 12/29/2017 15:30:00 DIS Inpatient JOSE PORTER, NATI Raymundo [facility] [address] HYPOMAGNESMIC,VOLUME DEPLETION,AMS,WEAKNESS [id number] 07/01/2017 10:00:00 07/01/2017 23:59:59 CLS Preadmit OTHER, UNLISTED [facility] TYPE 2 DIABETES [id number] 04/01/2017 09:52:00 06/30/2017 00:01:00 DIS Outpatient OTHER, UNLISTED [facility] TYPE 2 DIABETES [id number] 06/21/2017 15:15:00 06/21/2017 23:59:59 CLS Outpatient PAULIE MACKENZIE APRN [facility] RAD J32.8 [id number] 06/03/2017 12:56:00 06/03/2017 15:25:00 DIS Emergency LAVELL PORTER, SOPHIA Magana [facility] ER LT HAND NUMB/UPPER LIP NUMB/SPEECH DIFF [id number] 05/21/2016 21:40:00 05/22/2016 00:32:00 DIS Emergency JENNY SUN MD [facility] ER SEVERE BACK PAIN [id number] 09/05/2015 11:52:00 09/05/2015 23:59:59 CLS Outpatient RACHEL PORTER, ROSIE Sultana [facility] CARD [id number] 07/23/2015 09:29:00 07/29/2015 12:15:00 DIS Inpatient DECLAN SANTOS MD [facility] 4TH [id number] 07/15/2015 19:10:00 07/15/2015 22:12:00 DIS Emergency NADEEM ABARCA DO [facility] ER [id number] 06/01/2015 20:58:00 06/03/2015 11:15:00 DIS Inpatient DECLAN SANTOS MD [facility] SURGICAL [id number] 05/30/2015 17:03:00 05/30/2015 21:02:00 DIS Emergency ERICA OSBORNE [facility] ER [id number] 04/26/2015 12:26:00 04/26/2015 23:59:59 CLS Outpatient DECLAN SANTOS MD [facility] RAD [id number] 04/04/2015 08:22:00 04/04/2015 23:59:59 CLS Outpatient SHONDA YBARRA MD [facility] RAD [id number] 03/27/2015 12:22:00 03/27/2015 23:59:59 CLS Outpatient SHONDA YBARRA MD [facility] RAD [id number] 03/20/2015 21:00:00 03/24/2015 14:00:00 DIS Inpatient DECLAN SANTOS MD [facility] [id number] 03/20/2015 16:35:00 Document Registration [id number] 06/21/2012 20:00:00 Document Registration [id number] 12/18/2010 13:03:00 Document Registration [id number] 09/10/2010 11:37:00 Document Registration [id number] 08/12/2010 11:55:00 Document Registration [id number] 07/11/2010 15:52:00 Document Registration
[2018-09-23] MEDS ORDERED: LABETALOL HCL 20 MG/4 ML VIAL IV ONE ×2 (06:45→07:30)
[2018-09-23 06:48] LABS: BASOPHILS % (AUTO) 1 % (0-10); EOSINOPHILS # (AUTO) 0.3 10^3/uL (0.0-0.3); EOSINOPHILS % (AUTO) 5 % (0-10); HEMATOCRIT 41 % (35-52); HEMOGLOBIN 13.8 G/DL (11.5-16.0); LYMPHOCYTES # (AUTO) 2.1 X 10^3 (1.0-4.0); LYMPHOCYTES % (AUTO) 37 % (12-44); MEAN CORPUSCULAR HEMOGLOBIN 28 PG (25-34); MEAN CORPUSCULAR HGB CONC 34 G/DL (32-36); MEAN CORPUSCULAR VOLUME 83 FL (80-99); MEAN PLATELET VOLUME 11.8 FL (7.4-10.4); MONOCYTES # (AUTO) 0.5 X 10^3 (0.0-1.0); MONOCYTES % (AUTO) 9 % (0-12); NEUTROPHILS # (AUTO) 2.7 X 10^3 (1.8-7.8); NEUTROPHILS % (AUTO) 48 % (42-75); PLATELET COUNT 202 10^3/uL (130-400); RED BLOOD COUNT 4.94 10^6/uL (4.35-5.85); RED CELL DISTRIBUTION WIDTH 14.6 % (10.0-14.5); WHITE BLOOD COUNT 5.7 10^3/uL (4.3-11.0)
--- NOTE | 2018-09-23 06:54 | ED General ---
General Chief Complaint: Cardiac/General Problems Stated Complaint: WEAKNESS Nursing Triage Note: generalized weakness [id number]. difficulty with ambulating x1 week. high bloodpressure. Nursing Sepsis Screen: No Definite Risk Source of Information: Patient, EMS, Family, Old Records Exam Limitations: No Limitations History of Present Illness Date Seen by Provider: Sep 23, 2018 Time Seen by Provider: 06:28 Initial Comments This 67-year-old woman presents to the emergency room with primary complaint of progressive weakness worsening over the last week. Today she was unable to be assisted to the bathroom by her . EMS was therefore called for assistance and evaluation at the emergency room. Patient has a history of a similar episode when she had severe hypomagnesemia in December. Patient states she has resorted to using canes in both hands over the past few days until today when she cannot even get to the bathroom with the help of her . She also reports having some dragging of her right foot recently. She appears to have no focal neurologic deficits on assessment but has global weakness. She is also markedly hypertensive with systolic blood pressures exceeding 220 and diastolic blood pressures exceeding 120. She normally takes clonidine 3 times daily but has not had her morning medications yet. She has had some mild headache but denies chest pain. Speech is a little sluggish but not truly slurred. Allergies and Home Medications Allergies Coded Allergies: canagliflozin (Verified Allergy, Severe, ANAPHYLAXIS, 07/22/15) iodine (Unverified Adverse Reaction, Severe, migraine headache, 07/11/10) lorazepam (Verified Adverse Reaction, Severe, ELEVATED BLOOD PRESSURE, ) zolpidem (Verified Adverse Reaction, Severe, SLEEP WALK, 07/22/15) codeine (Unverified Adverse Reaction, Mild, INCREASED ACTIVITY, 08/13/10) erythromycin base (Unverified Adverse Reaction, Mild, NAUSEA, 08/13/10) Heparin Analogues (Unverified Adverse Reaction, Unknown, 08/13/10) Home Medications Alprazolam 0.5 Mg Tablet, 0.5 MG PO TID PRN for ANXIETY, (Reported) Lisha/Cell/Lipas/Malt/Prt/Lac/in 220 Mg Capsule, 1 CAP PO BID, (Reported) Aspirin 81 Mg Tablet.dr, 81 MG PO HS, (Reported) Cholecalciferol (Vitamin D3) 2,000 Unit Tab.chew, 4,000 UNIT PO 0800,1200, ( Reported) Cholecalciferol (Vitamin D3) 2,000 Unit Tab.chew, 2,000 UNIT PO HS, (Reported) Fluticasone Propionate 16 Gm [place].susp, 2 SPRAYS NS DAILY PRN for ALLERGIES/ CONGESTION, (Reported) Glyburide 5 Mg Tablet, 2.5 MG PO DAILY, (Reported) TAKES 1/2 (5MG) TABLET WITH BREAKFAST AND 1 (5MG) TABLET WITH SUPPER Glyburide 5 Mg Tablet, 5 MG PO 1800, (Reported) Insulin Detemir 100 Unit/1 Ml Insuln.pen, 5-8 UNITS SC HS, (Reported) Levomefolate/B6/B12/Algal Oil 1 Each Capsule, 1 CAP PO BID, (Reported) Losartan Potassium 50 Mg Tablet, 50 MG PO DAILY, (Reported) Metformin HCl 500 Mg Tablet, 500 MG PO 1200, (Reported) Metformin HCl 500 Mg Tablet, 1,000 MG PO BID, (Reported) TAKES 2 (500MG) TABLETS Metoprolol Succinate 100 Mg Tab.er.24h, 50 MG PO BID, (Reported) TAKES 1/2 (100MG) TABLET [place]-3 Fatty Acids 100 Mg Tab.chew, 100 MG PO TID, (Reported) Potassium Chloride 10 Meq Tablet.er, 10 MEQ PO DAILY, (Reported) Patient Home Medication List Home Medication List Reviewed: Yes Review of Systems Review of Systems Constitutional: see HPI, weakness EENTM: no symptoms reported Respiratory: no symptoms reported Cardiovascular: see HPI Gastrointestinal: no symptoms reported Genitourinary: no symptoms reported : No Musculoskeletal: no symptoms reported Skin: no symptoms reported Psychiatric/Neurological: See HPI Hematologic/Lymphatic: No Symptoms Reported Immunological/Allergic: no symptoms reported Past Owkfatm-Yankty-Adumty Hx Patient Social History Alcohol Use: Denies Use Recreational Drug Use: No Smoking Status: Never a Smoker 2nd Hand Smoke Exposure: No Recent Foreign Travel: No Contact w/Someone Who Travel: No Recent Infectious Disease Expo: No Recent Hopitalizations: No Immunizations Up To Date Tetanus Booster (TDap): More than 5yrs Date of Pneumonia Vaccine: Aug 01, 2012 Date of Influenza Vaccine: Aug 26, 2017 Seasonal Allergies Seasonal Allergies: Yes Past Medical History Surgeries: Yes (HYSTERECTOMY, thoracentesis, gallbladder, ) Appendectomy, Gallbladder, Hysterectomy, Pancreatic Respiratory: No Cardiac: Yes High Cholesterol, Hypertension Neurological: Yes Headaches /Migraines, Stroke, TIA : No 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 Disorders: 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 0.0oz. [id number]; 21.6 BMI Method:Stated General Appearance: No Apparent Distress, WD/WN HEENT: PERRL/EOMI, Pharynx Normal, Other (slight puffiness around the eyes. Otherwise normal-appearing head) Neck: Normal Inspection Respiratory: Lungs Clear, Normal Breath Sounds, No Accessory Muscle Use, No Respiratory Distress Cardiovascular: Regular Rate, Rhythm, No Edema, No Murmur, Normal Peripheral Pulses Gastrointestinal: Non Tender, Soft Extremity: Normal Inspection, No Pedal Edema Neurologic/Psychiatric: Alert, Oriented x3, Normal Mood/Affect, barrel liner II-XII Norm as Tested, Motor Weakness (Global with no focal deficits) Skin: Normal Color, Warm/Dry Progress/Results/Core Measures Suspected Sepsis Recent Fever Within 48 Hours: No Infection Criteria Present: None New/Unexplained Altered Menta: No Sepsis Screen: No Definite Risk SIRS Temperature:97.6 Pulse: 81 Respiratory Rate: 18 Laboratory Tests 09/23/18 06:34: White Blood Count 5.7 Blood Pressure 181 /138 Mean: 152 Laboratory Tests 09/23/18 06:34: Creatinine 0.88, Platelet Count 202, Total Bilirubin 0.4 Results/Orders Lab Results Laboratory Tests Test 09/23/18 06:34 09/23/18 07:40 Range/Units White Blood Count 5.7 4.3-11.0 10^3/uL Red Blood Count 4.94 4.35-5.85 10^6/uL Hemoglobin 13.8 11.5-16.0 G/DL Hematocrit 41 35-52 % Mean Corpuscular Volume 83 80-99 FL Mean Corpuscular Hemoglobin 28 25-34 PG Mean Corpuscular Hemoglobin Concent 34 32-36 G/DL Red Cell Distribution Width 14.6 H 10.0-14.5 % Platelet Count 202 130-400 10^3/uL Mean Platelet Volume 11.8 H 7.4-10.4 FL Neutrophils (%) (Auto) 48 42-75 % Lymphocytes (%) (Auto) 37 12-44 % Monocytes (%) (Auto) 9 0-12 % Eosinophils (%) (Auto) 5 0-10 % Basophils (%) (Auto) 1 0-10 % Neutrophils # (Auto) 2.7 1.8-7.8 X 10^3 Lymphocytes # (Auto) 2.1 1.0-4.0 X 10^3 Monocytes # (Auto) 0.5 0.0-1.0 X 10^3 Eosinophils # (Auto) 0.3 0.0-0.3 10^3/uL Basophils # (Auto) 0.0 0.0-0.1 10^3/uL Sodium Level 139 135-145 MMOL/L Potassium Level 3.4 L 3.6-5.0 MMOL/L Chloride Level 102 98-107 MMOL/L Carbon Dioxide Level 20 L 21-32 MMOL/L Anion Gap 17 H 5-14 MMOL/L Blood Urea Nitrogen 18 7-18 MG/DL Creatinine 0.88 0.60-1.30 MG/DL Estimat Glomerular Filtration Rate > 60 BUN/Creatinine Ratio 20 Glucose Level 127 H 70-105 MG/DL Calcium Level 9.9 8.5-10.1 MG/DL Corrected Calcium 9.6 8.5-10.1 MG/DL Magnesium Level 1.5 L 1.8-2.4 MG/DL Total Bilirubin 0.4 0.1-1.0 MG/DL Aspartate Amino Transf (AST/SGOT) 26 5-34 U/L Alanine Aminotransferase (ALT/SGPT) 39 0-55 U/L Alkaline Phosphatase 88 40-136 U/L Total Creatine Kinase 83 29-168 U/L Troponin I < 0.30 <0.30 NG/ML B-Type Natriuretic Peptide 20.2 <100.0 PG/ML Total Protein 7.3 6.4-8.2 GM/DL Albumin 4.4 3.2-4.5 GM/DL TSH [place] Testing 0.98 0.35-4.94 UIU/ML Urine Color YELLOW Urine Clarity CLEAR Urine pH 6 5-9 Urine Specific [place] 1.010 L 1.016-1.022 Urine Protein 2+ H NEGATIVE Urine Glucose (UA) NEGATIVE NEGATIVE Urine Ketones NEGATIVE NEGATIVE Urine Nitrite NEGATIVE NEGATIVE Urine Bilirubin NEGATIVE NEGATIVE Urine Urobilinogen NORMAL NORMAL MG/DL Urine Leukocyte Esterase NEGATIVE NEGATIVE Urine RBC (Auto) NEGATIVE NEGATIVE Urine RBC NONE /HPF Urine WBC NONE /HPF Urine Squamous Epithelial Cells RARE /HPF Urine Crystals NONE /LPF Urine Bacteria NEGATIVE /HPF Urine Casts NONE /LPF Urine Mucus NEGATIVE /LPF Urine Culture Indicated NO My Orders Orders - SOPHIA MONTE MD BNP (09/23/18 06:35) Cbc With Automated Diff (09/23/18 06:35) Comprehensive Metabolic Panel (09/23/18 06:35) Magnesium (09/23/18 06:35) Ua Culture If Indicated (09/23/18 06:35) Saline Lock/Iv-Start (09/23/18 06:35) Ekg Tracing (09/23/18 06:35) Monitor-Rhythm Ecg Trace Only (09/23/18 06:35) Chest 1 View, Ap/Pa Only (09/23/18 06:35) Labetalol Injection (Normodyne Injection (09/23/18 06:45) Ct Head Wo-R/O Stroke (09/23/18 06:38) Thyroid Analyzer (09/23/18 06:38) Troponin I (09/23/18 06:41) Labetalol Injection (Normodyne Injection (09/23/18 07:30) Clonidine Tablet (Catapres Tablet) (09/23/18 07:30) Magnesium 1 Gm/100 Ml Ivpb (Magnesium Pool (09/23/18 07:45) Creatine Kinase (09/23/18 07:39) Potassium Cl 10meq/50ml Ivpb (Kcl 10 Meq (09/23/18 07:45) Cho 75g/M 3snack (21-2400 [place]) (09/23/18 Breakfast) Ns Iv 500 Ml (Sodium Chloride 0.9%) (09/23/18 10:12) Medications Given in ED Current Medications Medications Dose Ordered Sig/Olivia Route Start Time Stop Time Status Last Admin Dose Admin Clonidine HCl 0.2 mg ONCE ONCE PO 09/23/18 07:30 09/23/18 07:31 DC 09/23/18 07:39 0.2 MG Labetalol HCl 10 mg ONCE ONCE IV 09/23/18 06:45 09/23/18 06:46 DC 09/23/18 06:47 10 MG Labetalol HCl 20 mg ONCE ONCE IV 09/23/18 07:30 09/23/18 07:31 DC 09/23/18 07:39 20 MG Magnesium Sulfate/ Dextrose 100 ml @ 100 mls/hr ONCE ONCE IV 09/23/18 07:45 09/23/18 08:44 DC 09/23/18 07:40 100 MLS/HR Potassium Chloride 50 ml @ 50 mls/hr ONCE ONCE IV 09/23/18 07:45 09/23/18 08:44 DC 09/23/18 08:07 50 MLS/HR Vital Signs/I&O 09/23/18 06:30 Temp 97.6 Pulse 81 Resp 18 B/P (MAP) 181/138 (152) Pulse Ox 98 O2 Delivery Room Air Capillary Refill : Less Than 3 Seconds Blood Pressure Mean: 152 Progress Note #1: Time: 06:53 Progress Note Patient seen and assessed. There are no focal deficits. She has global weakness. Labetalol 10 mg IV has been administered for hypertensive emergency. CT of the head will be obtained as patient complained of dragging her right foot at home. Progress Note #2: Time: 07:43 Progress Note Blood pressure did not respond much to the labetalol 10 mg. Labetalol 20 mg IV has been ordered along with clonidine 0.2 mg orally. Magnesium and potassium supplementation has been ordered by IV route as well. Progress Note #3: Time: 09:37 Progress Note Blood pressure has been trending downward. states blood pressure has typically been refractory to IV medications in the past and her normal systolic blood pressures are often in excess of 170 even with clonidine. Systolic blood pressure is now 128 which is unusual for her. She denies feeling lightheaded but is feeling very sleepy. Patient had had not received her usual home Xanax dose when she was still quite hypertensive. She was allowed to take her home dose. I suspect patient may be having some drastic swings in blood pressure due to administration and withdraw of multiple sedating medications including Xanax, clonidine, and metoprolol. Case was discussed with Dr. Mcneal who agrees with admission. We did attempt to have the patient walk. She was able to bear weight but was unable to do more than shuffle a couple of feet. She required assistance to prevent fall. Progress Note #4: Time: 10:13 Progress Note Patient's systolic blood pressure is now down to 124. A 500 mL normal saline bolus was ordered. ECG Initial ECG Impression Date: Sep 23, 2018 Initial ECG Impression Time: 06:40 Initial ECG Rate: 80 Initial ECG Rhythm: Normal Sinus Comment Normal sinus rhythm with no ST elevation or depression. Secondary repolarization suggestive of LVH. No abnormal intervals. Diagnostic Imaging Diagonstic Imaging: CT Plain Films/CT/US/NM/MRI: head Comments CT head viewed by me and report reviewed. See report below: NAME: EDMUND FELIX [employer] REC#: [id number] PT STATUS: REG ER : 1950 PHYSICIAN: SOPHIA MONTE MD ADMIT DATE: 09/23/18/ER Draft Date of Exam:09/23/18 CT HEAD WO-R/O STROKE PROCEDURE: CT head wo r/o stroke. TECHNIQUE: Multiple contiguous axial images were obtained through the brain without the use of intravenous contrast. INDICATION: Generalized weakness x24-48 hours. Difficulty with ambulating x1 week. Hypertension. CORRELATION STUDY: 12/26/2017 FINDINGS: There is generalized atrophic changes with prominence of ventricles and sulci. Scattered areas of decreased attenuation while nonspecific favor likely change small vessel ischemic disease. These findings are overall slightly advanced for the patient's age. Definitive area of edema is not suggested. No midline shift or mass effect. No intracranial hemorrhage. No hyperdense MCA sign. Findings compatible with prior likely lacunar infarct of the right nuha. Additional bilateral basal ganglia, lacunar type infarcts suggested. The bony calvarium is unremarkable. Sinus mastoid air cells clear. IMPRESSION: Generally stable noncontrast CT imaging of the head demonstrates no evidence for acute intracranial abnormality. There is advanced likely change of small vessel ischemic disease. There is again rather pronounced chronic-appearing changes, subtle areas of edema could easily go undetected. If further assessment is desired, correlation with MRI would be recommended. Dictated on workstation # [id number] Dict: 09/23/18 0714 Trans: 09/23/18 0757 [facility] [id number] Interpreted by: RED CARPENTER DO Departure Communication (Admissions) Time/Spoke to Admitting Phy: 09:20 Dr. Mcneal Impression Primary Impression: Hypertensive emergency Additional Impressions: Generalized weakness hypomagnesemia Hypokalemia Labile blood pressure Disposition: ADMITTED INPATIENT Condition: Stable Admissions Decision to Admit Reason: Admit from ER (General) Decision to Admit/Date: Sep 23, 2018 Time/Decision to Admit Time: 09:20 Departure-Patient Inst. Referrals: DECLAN SANTOS MD (PCP/Family) Primary Care Physician SOPHIA MONTE MD Sep 23, 2018 06:54
[2018-09-23 07:07] LABS: ALANINE AMINOTRANSFERASE 39 U/L (0-55); ALBUMIN 4.4 GM/DL (3.2-4.5); ALKALINE PHOSPHATASE 88 U/L (40-136); BILIRUBIN,TOTAL 0.4 MG/DL (0.1-1.0); BUN/CREATININE RATIO 20; CALCIUM 9.9 MG/DL (8.5-10.1); CARBON DIOXIDE 20 MMOL/L (21-32); CHLORIDE 102 MMOL/L (98-107); CREATININE SERUM 0.88 MG/DL (0.60-1.30); GFR ESTIMATED > 60; GLUCOSE 127 MG/DL (70-105); MAGNESIUM 1.5 MG/DL (1.8-2.4); POTASSIUM 3.4 MMOL/L (3.6-5.0); SODIUM 139 MMOL/L (135-145); TOTAL PROTEIN 7.3 GM/DL (6.4-8.2)
[2018-09-23 07:27] LABS: TSH (THYROID ANALYZER) 0.98 UIU/ML (0.35-4.94)
--- NOTE | 2018-09-23 07:28 | Diagnostic Imaging Report ---
INDICATION: Weakness and hypertension. Comparison made with prior examination 07/15/2015. FINDINGS: The heart size, mediastinal configuration, and pulmonary vascularity are within normal limits. There is no pleural effusion, pneumothorax, or pneumonia. The osseous structures are unremarkable. IMPRESSION: No acute cardiopulmonary abnormality. Dictated by: Dictated on workstation # [id number]
[2018-09-23] MEDS ORDERED: cloNIDine 0.2 MG (CATAPRES) TAB PO ONE ×2 (07:30→21:15)
[2018-09-23] MEDS ORDERED: MAGNESIUM 1 GM/100 ML IVPB 100 ML IV ONE (07:45)
[2018-09-23] MEDS ORDERED: POTASSIUM CL 10MEQ/50ML IVPB 50 ML IV ONE (07:45)
[2018-09-23 07:46] LABS: BILIRUBIN,URINE NEGATIVE (NEGATIVE); CLARITY,URINE CLEAR; COLOR,URINE YELLOW; GLUCOSE, URINE (UA) NEGATIVE (NEGATIVE); KETONES,URINE NEGATIVE (NEGATIVE); LEUKOCYTE ESTERASE ,URINE NEGATIVE (NEGATIVE); NITRITE,URINE NEGATIVE (NEGATIVE); PH,URINE 6 (5-9); PROTEIN,URINE 2+ (NEGATIVE); UROBILINOGEN,URINE NORMAL (NORMAL)
--- NOTE | 2018-09-23 07:58 | Diagnostic Imaging Report ---
PROCEDURE: CT head wo r/o stroke. TECHNIQUE: Multiple contiguous axial images were obtained through the brain without the use of intravenous contrast. INDICATION: Generalized weakness x24-48 hours. Difficulty with ambulating x1 week. Hypertension. CORRELATION STUDY: 12/26/2017 FINDINGS: There is generalized atrophic changes with prominence of ventricles and sulci. Scattered areas of decreased attenuation while nonspecific favor likely change small vessel ischemic disease. These findings are overall slightly advanced for the patient's age. Definitive area of edema is not suggested. No midline shift or mass effect. No intracranial hemorrhage. No hyperdense MCA sign. Findings compatible with prior likely lacunar infarct of the right nuha. Additional bilateral basal ganglia, lacunar type infarcts suggested. The bony calvarium is unremarkable. Sinus mastoid air cells clear. IMPRESSION: Generally stable noncontrast CT imaging of the head demonstrates no evidence for acute intracranial abnormality. There is advanced likely change of small vessel ischemic disease. There is again rather pronounced chronic-appearing changes, subtle areas of edema could easily go undetected. If further assessment is desired, correlation with MRI would be recommended. Dictated by: Dictated on workstation # [id number]
[2018-09-23 08:16] LABS: BACTERIA,URINE NEGATIVE /HPF; SQUAMOUS EPITHELIAL CELL,UR RARE /HPF
--- OUTSIDE RECORDS SUMMARY | 2018-09-23 09:47 | XMS REPORT | Continuity of Care Document ---
Author Author [facility] Organization [facility] Address Unknown Phone Unavailable Allergies Active Description Code Type Severity Reaction Onset Reported/Identified Relationship to Patient Clinical Status Yes iodine [id number] Drug Allergy Severe migraine headac 07/11/2010 Yes lorazepam [id number] Drug Allergy Severe N/A 08/12/2010 Yes zolpidem [id number] Drug Allergy Severe N/A 08/12/2010 Yes codeine [id number] Drug Allergy Mild INCREASED ACTIV 08/13/2010 Yes erythromycin base [id number] Drug Allergy Mild NAUSEA 08/13/2010 Yes Heparin Analogues [id number] Drug Allergy Unknown N/A 08/13/2010 Yes canagliflozin [id number] Drug Allergy Unknown ANAPHYLAXIS 07/21/2015 Yes canagliflozin [id number] Drug Allergy Severe ANAPHYLAXIS 07/22/2015 Yes lorazepam [id number] Drug Allergy Severe ELEVATED BLOOD 07/22/2015 Yes zolpidem [id number] Drug Allergy Severe SLEEP WALK 07/22/2015 Medications [...] SKIN 06/03/2017 SOPHIA MONTE MD Ot 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 06/03/2017 SOPHIA MONTE MD Ot Z79.899 OTHER GROUP HOME (CURRENT) DRUG THERAPY 06/16/2017 OTHER, UNLISTED Ot [...] WEAKNESS 12/29/2017 NATI GARCIA MD Ot Z79.4 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 12/29/2017 NATI GARCIA MD Ot Z79.84 GROUP HOME (CURRENT) USE OF ORAL HYPOGLYC 12/29/2017 NATI GARCIA MD Ot Z86.69 PERSONAL HISTORY OF DIS OF THE NERVOUS S 12/29/2017 NATI GARCIA MD Ot Z86.73 PRSNL HX OF TIA (TIA), AND CEREB INFRC W 12/29/2017 NATI GARCIA MD Ot Z91.19 PATIENT'S NONCOMPLIANCE W [facility] 12/30/2017 NATI GARCIA MD Ot [...] WEAKNESS 12/30/2017 NATI GARCIA MD Ot 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 12/30/2017 NATI GARCIA MD Ot Z86.69 PERSONAL HISTORY OF DIS OF THE NERVOUS S 12/30/2017 NAIT GARCIA MD Ot Z86.73 PRSNL HX OF TIA (TIA), AND CEREB INFRC W 12/30/2017 NATI GARCIA MD Ot Z91.19 PATIENT'S NONCOMPLIANCE W [facility] 12/30/2017 NATI GARCIA MD Ot [...] WEAKNESS 12/30/2017 NATI GARCIA MD, Ot Z79.84 GROUP HOME (CURRENT) USE OF ORAL HYPOGLYC 12/30/2017 NATI GARCIA MD, Ot Z86.69 PERSONAL HISTORY OF DIS OF THE NERVOUS S 12/30/2017 NATI GARCIA MD, Ot Z86.73 PRSNL HX OF TIA (TIA), AND CEREB INFRC W 12/30/2017 NATI GARCIA MD, Ot Z91.19 PATIENT'S NONCOMPLIANCE W [facility] Procedures There is no data. [...] Status Pt. Type Provider Facility Loc./Unit Complaint [id number] 12/28/2017 13:24:00 12/29/2017 15:30:00 DIS Inpatient JOSE PORTER, NATI Raymundo [facility] [address] HYPOMAGNESMIC,VOLUME DEPLETION,AMS,WEAKNESS [id number] 07/01/2017 10:00:00 07/01/2017 23:59:59 CLS Preadmit OTHER, UNLISTED [facility] TYPE 2 DIABETES [id number] 04/01/2017 09:52:00 06/30/2017 00:01:00 DIS Outpatient OTHER, UNLISTED [facility] TYPE 2 DIABETES [id number] 06/21/2017 15:15:00 06/21/2017 23:59:59 CLS Outpatient PAULIE MACKENZIE APRN [facility] RAD J32.8 [id number] 06/03/2017 12:56:00 06/03/2017 15:25:00 DIS Emergency LAVELL PORTER, SOPHIA Magana [facility] ER LT HAND NUMB/UPPER LIP NUMB/SPEECH DIFF [id number] 05/21/2016 21:40:00 05/22/2016 00:32:00 DIS Emergency JENNY SUN MD [facility] ER SEVERE BACK PAIN [id number] 09/05/2015 11:52:00 09/05/2015 23:59:59 CLS Outpatient RACHEL PORTER, ROSIE Sultana [facility] CARD [id number] 07/23/2015 09:29:00 07/29/2015 12:15:00 DIS Inpatient DECLAN SANTOS MD [facility] 4TH [id number] 07/15/2015 19:10:00 07/15/2015 22:12:00 DIS Emergency NADEEM ABARCA DO [facility] ER [id number] 06/01/2015 20:58:00 06/03/2015 11:15:00 DIS Inpatient DECLAN SANTOS MD [facility] SURGICAL [id number] 05/30/2015 17:03:00 05/30/2015 21:02:00 DIS Emergency ERICA OSBORNE [facility] ER [id number] 04/26/2015 12:26:00 04/26/2015 23:59:59 CLS Outpatient DECLAN SANTOS MD [facility] RAD [id number] 04/04/2015 08:22:00 04/04/2015 23:59:59 CLS Outpatient SHONDA YBARRA MD [facility] RAD [id number] 03/27/2015 12:22:00 03/27/2015 23:59:59 CLS Outpatient SHONDA YBARRA MD [facility] RAD [id number] 03/20/2015 21:00:00 03/24/2015 14:00:00 DIS Inpatient DECLAN SANTOS MD [facility] [id number] 03/20/2015 16:35:00 Document Registration [id number] 06/21/2012 20:00:00 Document Registration [id number] 12/18/2010 13:03:00 Document Registration [id number] 09/10/2010 11:37:00 Document Registration [id number] 08/12/2010 11:55:00 Document Registration [id number] 07/11/2010 15:52:00 Document Registration
[2018-09-23] MEDS ORDERED: NS IV 500 ML 500 ML IV ONE (10:12)
--- NOTE | 2018-09-23 11:02 | History & Physical-Hospitalist ---
History of Present Illness HPI/Chief Complaint Pt is a 67yoCF with a PMH of HTN, anxiety disorder, hypomagnesemia, NIDDMII, CVA who presented to the ER due to generalized weakness. She has had a slow decline this entire year with fatigue since she was found to have low magnesium in December. She did improve with oral supplements but has never returned to baseline. Over the last week she has been more fatigued and hardly able to get up and walk when she is normally ambulatory. She is quite sleepy at this time as she just received her evening Xanax dose and her history is limited somewhat. On arrival to the ER she was found to be severely hypertensive and mildly hypomagnesemic and admitted for observation. Source: patient Exam Limitations: clinical condition Date Seen 09/23/18 Time Seen by a Provider: 10:50 Attending Physician Nati Mcneal MD PCP Frank Goldsmith MD Referring Physician Date of Admission Sep 23, 2018 at 9:39 am Home Medications & Allergies Home Medications Reviewed patient Home Medication Reconciliation performed by pharmacy medication reconciliations chief technician x ray and/or nursing. Patients Allergies have been reviewed. Allergies Allergies Coded Allergies canagliflozin (Verified Allergy, Severe, ANAPHYLAXIS, 07/22/15) iodine (Unverified Adverse Reaction, Severe, migraine headache, 07/11/10) lorazepam (Verified Adverse Reaction, Severe, ELEVATED BLOOD PRESSURE, 07/22/15 ) zolpidem (Verified Adverse Reaction, Severe, SLEEP WALK, 07/22/15) codeine (Unverified Adverse Reaction, Mild, INCREASED ACTIVITY, 08/13/10) erythromycin base (Unverified Adverse Reaction, Mild, NAUSEA, 08/13/10) Heparin Analogues (Unverified Adverse Reaction, Unknown, 08/13/10) Past Hbiypkm-Bxvsze-Sllfii Hx Past Med/Social Hx: Reviewed Nursing Past Med/Soc Hx Patient Social History Marrital Status: Alcohol Use: Denies Use Recreational Drug Use: No Smoking Status: Never a Smoker 2nd Hand Smoke Exposure: No Recent Foreign Travel: No Contact w/other who traveled: No Recent Hopitalizations: No Recent Infectious Disease Expo: No Immunizations Up To Date Tetanus Booster (TDap): More than 5yrs Date of Pneumonia Vaccine: Aug 01, 2012 Date of Influenza Vaccine: Aug 26, 2017 Seasonal Allergies Seasonal Allergies: Yes Past Medical History Surgeries: Appendectomy, Gallbladder, Hysterectomy, Pancreatic Cardiac: High Cholesterol, Hypertension Neurological: Headaches /Migraines, Stroke, TIA : No 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: No Hysterectomy, Menopausal Genitourinary: Bladder Infection Gastrointestinal: Pancreatitis Endocrine: Diabetes, Insulin dep Psychosocial: Anxiety History of Blood Disorders: No Family History CVA Review of Systems Constitutional: No chills, No fever; malaise, weakness EENTM: no symptoms reported Respiratory: no symptoms reported Cardiovascular: no symptoms reported Gastrointestinal: No abdominal pain, No constipation, No diarrhea; loss of appetite; No nausea, No vomiting Genitourinary: No decreased output, No frequency; incontinence Musculoskeletal: muscle weakness (generalized) Skin: no symptoms reported Psychiatric/Neurological: Anxiety Physical Exam Physical Exam Vital Signs Vital Signs - First Documented 09/23/18 06:30 Temp 97.6 Pulse 81 Resp 18 B/P (MAP) 181/138 (152) Pulse Ox 98 O2 Delivery Room Air Capillary Refill : Less Than 3 Seconds Height, Weight, BMI Height: 5'4.00" Weight: 126lbs. 0.0oz. [id number]; 21.6 BMI Method:Stated General Appearance: No Apparent Distress, WD/WN HEENT: PERRL/EOMI, Moist Mucous Membranes Neck: Non Tender, Supple Respiratory: Lungs Clear, No Respiratory Distress Cardiovascular: Regular Rate, Rhythm, No Murmur Gastrointestinal: Normal Bowel Sounds, Non Tender, Soft Extremity: Normal Capillary Refill, No Calf Tenderness Neurologic/Psychiatric: Alert, Oriented x3, Normal Mood/Affect, Motor Weakness (diffuse) Skin: Normal Color, Warm/Dry Results Results/Procedures Labs Laboratory Tests 09/23/18 06:34 09/24/18 03:05 Patient resulted labs reviewed. Imaging: Reviewed Imaging Report Assessment/Plan Admission Diagnosis HTN Emergency Admission Status: Inpatient Order (span 2 midnights) Reason for Inpatient Admission: Will need close monitoring and adjust of antihypertensives along with electrolyte replacement. PT/OT for weakness. Diagnosis/Problems Diagnosis/Problems (1) Hypertensive emergency Status: Acute Assessment & Plan: BP significantly elevated on arrival Responded to multiple doses of labetolol and anxiolytics Monitor closely in [facility] (2) History of stroke Assessment & Plan: Had similar presentation in December and had an acute stroke Will repeat MRI brain (3) Generalized weakness Assessment & Plan: PT/OT May be a a good candidate for IRU (4) hypomagnesemia Assessment & Plan: Replaced in ER Will trend (5) Insulin dependent diabetes mellitus Assessment & Plan: Resume home meds when med rec available NATI MCNEAL MD Sep 23, 2018 11:02
[2018-09-23] MEDS: MAGNESIUM 1 GM/D5W 100 ML IVPB IV SCH ×2 (11:48→11:49)
--- NOTE | 2018-09-23 13:12 | Diagnostic Imaging Report ---
PROCEDURE: MR imaging of the brain without contrast. TECHNIQUE: Multiplanar, multisequence MR imaging of the brain was performed without contrast. DATE: September 23, 2018. COMPARISON: CT head without contrast September 23, 2018. MRI brain December 27, 2017. HISTORY: 67-year-old female, slurred speech and weakness. Evaluation for stroke. FINDINGS: There are several areas of diffusion restriction, one of which is in the left middle cerebral peduncle on diffusion-weighted sequence image 10. There are associated T2 and FLAIR hyperintense signal changes. There is also diffusion restriction in the region of the left upper thalamus, left periventricular white matter, and left orzoco radiata with additional signal changes on T2 and FLAIR weighted sequences. There is a focal area of diffusion restriction in the left subcortical white matter on diffusion-weighted sequence image 23 as well as a peripherally diffusion restricting lesion in the right periventricular white matter with internal areas of CSF-like signal. These sites of diffusion restriction are all new since December 27, 2017. There is no abnormal intracranial susceptibility. The ventricles and CSF spaces are within normal limits in size and configuration for patient age. There is no identified loss of a normal intracranial flow void. There is no abnormal extra-axial fluid collection. There are multiple foci of T2 and FLAIR hyperintense signal involving the subcortical and periventricular white matter as well as the nuha which are not specific. These appear essentially unchanged compared to prior exam. There is a small T2 hyperintense lesion in the right cerebellar hemisphere which appears new. There is no air-fluid level within the paranasal sinuses. Mastoid air cells and middle ears are well aerated bilaterally. IMPRESSION: 1. Multiple areas of new diffusion restriction including involving the left middle cerebral peduncle, left upper thalamus, left periventricular white matter, left orozco radiata, left frontal subcortical white matter, and right periventricular white matter as detailed above. Differential diagnostic considerations would include multiple areas of acute infarct. Multiple actively demyelinating lesions would also be in the differential diagnosis. 2. Extensive white matter signal changes which are not specific. These are mostly unchanged since December 27, 2017. Prominent changes of chronic small vessel ischemic disease and/or demyelinating etiology included within the differential diagnosis. 3. There is small nonspecific T2 hyperintense lesion in the right cerebellar hemisphere. 4. No mass effect or midline shift. 5. No hydrocephalus. Dictated by: Dictated on workstation # [id number]
[2018-09-23] MEDS ORDERED: FLU QUADRIvalent (5+ YOA) 2018-2019 (AFLURIA) 0.5 ML IM ONE (14:45)
[2018-09-23] MEDS ORDERED: CETI10TA17 PO (16:08)
[2018-09-23] MEDS: inSUlin ASPART (NovoLOG) 1 UNIT/0.01 ML (CHARGE PER UNIT) SC SCH ×2 (18:14→21:32)
[2018-09-23] MEDS ORDERED: NITROGLYCERIN 2% OINT 1 GM UNIT DOSE PACKET TOP PRN (19:30)
[2018-09-23] MEDS: ALPRAZolam 0.25 MG (XANAX) TAB PO PRN (21:33)
[2018-09-24] VITALS (35 sets, daily range): BP systolic 154–227; BP diastolic 81–132
[2018-09-24 03:34] LABS: BASOPHILS % (AUTO) 0 % (0-10); EOSINOPHILS # (AUTO) 0.3 10^3/uL (0.0-0.3); EOSINOPHILS % (AUTO) 5 % (0-10); HEMATOCRIT 36 % (35-52); HEMOGLOBIN 12.3 G/DL (11.5-16.0); LYMPHOCYTES # (AUTO) 1.5 X 10^3 (1.0-4.0); LYMPHOCYTES % (AUTO) 29 % (12-44); MEAN CORPUSCULAR HEMOGLOBIN 29 PG (25-34); MEAN CORPUSCULAR HGB CONC 34 G/DL (32-36); MEAN CORPUSCULAR VOLUME 85 FL (80-99); MEAN PLATELET VOLUME 12.1 FL (7.4-10.4); MONOCYTES # (AUTO) 0.5 X 10^3 (0.0-1.0); MONOCYTES % (AUTO) 9 % (0-12); NEUTROPHILS # (AUTO) 3.1 X 10^3 (1.8-7.8); NEUTROPHILS % (AUTO) 57 % (42-75); PLATELET COUNT 180 10^3/uL (130-400); RED BLOOD COUNT 4.28 10^6/uL (4.35-5.85); RED CELL DISTRIBUTION WIDTH 14.9 % (10.0-14.5); WHITE BLOOD COUNT 5.4 10^3/uL (4.3-11.0)
[2018-09-24 03:54] LABS: CALCIUM 9.1 MG/DL (8.5-10.1); CREATININE SERUM 0.94 MG/DL (0.60-1.30); MAGNESIUM 1.9 MG/DL (1.8-2.4); POTASSIUM 3.4 MMOL/L (3.6-5.0)
[2018-09-24] MEDS: inSUlin ASPART (NovoLOG) 1 UNIT/0.01 ML (CHARGE PER UNIT) SC SCH ×4 (05:23→20:45)
[2018-09-24] MEDS: ENALAPRILAT 2.5 MG/2 ML (VASOTEC) VIAL IV PRN ×3 (06:24→23:14)
--- NOTE | 2018-09-24 07:42 | Progress Note-Hospitalist ---
Subjective HPI/CC On Admission Date Seen by Provider: Sep 24, 2018 Time Seen by Provider: 07:37 Pt is a 67yoCF with a PMH of HTN, anxiety disorder, hypomagnesemia, NIDDMII, CVA who presented to the ER due to generalized weakness. She has had a slow decline this entire year with fatigue since she was found to have low magnesium in December. She did improve with oral supplements but has never returned to baseline. Over the last week she has been more fatigued and hardly able to get up and walk when she is normally ambulatory. She is quite sleepy at this time as she just received her evening Xanax dose and her history is limited somewhat. On arrival to the ER she was found to be severely hypertensive and mildly hypomagnesemic and admitted for observation. Subjective/Events-last exam Pt reports feeling somewhat better today but still weak. at bedside and worried about blood pressure being high. Requesting Clonidine. Discussed plan for MRI with contrast and pt and unsure if they want to proceed as she has had issues with iodine in past. [employer] tech and I both explain that this is a different kind of contrast but they are still unsure and request some time to discuss. Objective Exam Vital Signs Vital Signs Date Time Temp Pulse Resp B/P (MAP) Pulse Ox O2 Delivery O2 Flow Rate FiO2 09/24/18 06:00 75 15 209/108 (141) 99 Room Air 09/23/18 10:30 98.2 Capillary Refill : Less Than 3 SecondsLess Than 3 Seconds General Appearance: No Apparent Distress, Chronically ill Respiratory: Lungs Clear, No Respiratory Distress Cardiovascular: Regular Rate, Rhythm, No Murmur Gastrointestinal: Normal Bowel Sounds, Non Tender, Soft Extremity: No Calf Tenderness, No Pedal Edema Neurologic/Psychiatric: Alert, Oriented x3 Results/Procedures Lab Laboratory Tests 09/24/18 03:05 Patient resulted labs reviewed. Imaging: Reviewed Imaging Report Assessment/Plan Assessment and Plan Assess & Plan/Chief Complaint Generalized Weakness Diagnosis/Problems Diagnosis/Problems (1) Abnormal brain MRI Assessment & Plan: MRI done to evaluate for possible CVA Shows multiple areas concerning for acute infarct or demyelination Discussed with Stroke Neurology at [facility] who expressed concerned for MRI and requested MRI with Contrast and sagital flair Discussed these concerns with patient and expressed concern about contrast due to history of issues with iodine contrast Explained difference in the contrast and risk and benefits of not obtaining MRI with contrast They requested time to discuss amongst themselves and will let us know (2) Hypertensive emergency Status: Acute Assessment & Plan: BP remains very elevated Would like to get off Clonidine as sedative side effect is likely contributing to patient's clinical presentation Vaostec ordered prn Nitropaste ordered but pt's declined due to headache side effect (3) History of stroke Assessment & Plan: Had similar presentation in December and had an acute stroke MRI studies as above (4) Generalized weakness Assessment & Plan: PT/OT May be a a good candidate for IRU (5) hypomagnesemia Assessment & Plan: Normal currently (6) Insulin dependent diabetes mellitus Assessment & Plan: Resume home insulin SSI (7) Hyperlipidemia Status: Acute Assessment & Plan: Very elevated Will start on statin Qualifiers: Hyperlipidemia type: mixed hyperlipidemia Qualified Codes: E78.2 - Mixed hyperlipidemia Clinical Quality Measures DVT/VTE Risk/Contraindication: Risk Factor Score Per Nursin RFS Level Per Nursing on Admit: 2=Moderate NATI GARCIA MD Sep 24, 2018 07:41
[2018-09-24] MEDS ORDERED: FLUTICASONE NASAL SPRAY (FLONASE) 16 GM BTL NS PRN (08:00)
[2018-09-24] MEDS: LORATADINE (CLARITIN) 10 MG TAB PO SCH (08:53)
[2018-09-24] MEDS: FOLIC ACID 1 MG TAB PO SCH ×2 (08:53→20:35)
[2018-09-24] MEDS: KCL 10 MEQ TAB (MICRO K) PO SCH (08:54)
[2018-09-24] MEDS: ALPRAZolam 0.25 MG (XANAX) TAB PO PRN ×2 (08:56→20:36)
[2018-09-24] MEDS ORDERED: amLODIPine 5 MG (NORVASC) TAB PO SCH (09:00)
[2018-09-24] MEDS ORDERED: meTOproloL SUCCINATE 50 MG (TOPROL XL) TAB PO SCH (09:00)
[2018-09-24] MEDS ORDERED: GADOBUTROL 7.5 MMOL/7.5 ML (GADAVIST) VIAL IV ONE (10:45)
--- NOTE | 2018-09-24 11:07 | Physical Therapy Evaluation ---
PT Evaluation-General Medical Diagnosis Admission Date Sep 23, 2018 at 09:39 Medical Diagnosis: HTN emergency Onset Date: Sep 23, 2018 Therapy Diagnosis Therapy Diagnosis: (R) side weakness Height/Weight Height (Feet): 5 Height (Inches): 4.00 Weight (Pounds): 129 Weight (Ounces): 2.0 Precautions Precautions/Isolations: Fall Prevention, Standard Precautions Weight Bear Status Right Lower Extremity: Right Weight Bearing/Tolerated Left Lower Extremity: Left Weight Bearing/Tolerated Referral Physician: Susan Mcneal MD Reason for Referral: Evaluation/Treatment, Strengthening, Gait Medical History Pertinent Medical History: DM, HTN, Neuropathy Additional Medical History TIA, anxiety Current History Admit due to HTN and (R) side weakness. Reviewed History: Yes Social History Home: Single Level Current Living Status: Significant Other Entry Into Home: Level Entry Prior/Core FIM Prior Level of Function Functional [place] Measure 0=Not Assessed/NA 4=Minimal Assistance 1=Total Assistance 5=Supervision or Setup 2=Maximal Assistance 6=Modified [place] 3=Moderate Assistance 7=Complete IndependenceIRFPAI Quality Coding Scale 6 Independent with activity with or without an assistive device 5 Patient requires set up or clean up by helper. Patient completes activity by themselves 4 Supervision or touching assist (CGA). [place] provide cues , steadying assist 3 The helper provides less than half the effort to complete the activity 2 The helper provides more than half the effort to complete the activity 1 Dependent. The helper does all the effort to complete an activity 7 Patient refused to complete or attempt activity 9 The patient did not perform the activity before the current illness or injury 88 Not attempted due to Medical conditions or safety concerns Bed Mobility: 6 Transfers (B,C,W/C) (FIM): 6 Gait: 6 Pt indicated that she has had to have someone help her with most activities for the past few months due to instability and weakness. PT Evaluation-Current Subjective (R) UE and LE delayed movement and weakness. (B) LE weakness. Pt/Family Goals Return home. Objective Patient Orientation: Person, Place, Time, Situation Problem Solving: Fair ROM/Strength ROM Upper Extremities WFL ROM Lower Extremities WFL Strength Upper Extremities 3+/5 (B) UE gross strength Strength Lower Extremities 3+'/5 (B) LE gross strength. Able to fire all muscle groups in the lower extremities (I). Not signficant weakness (R) to (L). Integumentary/Posture Posture flexed posture in standing and sitting Neuromuscular (Tone, Coordination, Reflexes) Delayed (R) LE coordination, but able to perform coordination task (I). Sensory Vision: Functional Hearing: Functional Hand Dominance: Right Sensation Right Upper Extremit: Intact Sensation Left Upper Extremity: Intact Sensation Right Lower Extremit: Intact Sensation Left Lower Extremity: Intact Transfers Functional [place] Measure 0=Not Assessed/NA 4=Minimal Assistance 1=Total Assistance 5=Supervision or Setup 2=Maximal Assistance 6=Modified [place] 3=Moderate Assistance 7=Complete [place] Transfers (B, C, W/C) (FIM): 3 Scootin Rollin Supine to/from Sit: 3 Sit to/from Stand: 3 Transferred from sit to supine onto the portable MRI table. Gait Mode of Locomotion: Walk Anticipated Mode of Locomotion: Walk Distance (FIM): 1=up to 49 ft Distance: 32ft Gait Level of Assist: 3 Gait Persons Needed: 1 Gait Assistive Device: FWW Balance Sitting Static: Poor Sitting Dynamic: Poor Standing Static: Fair Standing Dynamic: Fair Special Test Comments Retropulsive in seated. Able to stand with FWW with support applied to the back. Once ambulating, she was able to maintain posture and upright position without assist. Assessment/Needs Pt reports diminished mobility in the (R) UE and weakness in (B) LEs, poor seated balance, difficulty with transfers. She would benefit from PT to address balance, strength, and mobility. Rehab Potential: Good PT Short Term Goals Short Term Goals Time Frame: Oct 08, 2018 Transfers (B,C,W/C) (FIM): 6 Gait (FIM): 5 Distance (FIM): 3=150 ft Gait Level of Assist: 5 Gait Assistive Device: FWW Stairs (FIM): 2 # of Steps: 4 Stairs Level of Assist: 4 PT Plan Problem List Problem List: Activity Tolerance, Functional Strength, Balance, Gait, Transfer , Bed Mobility Treatment/Plan Treatment Plan: Continue Plan of Care Treatment Plan: Bed Mobility, Concurrent Therapy, Functional Activity Shiv, Functional Strength, Gait, Safety, Therapeutic Exercise, Transfers Treatment Duration: Oct 08, 2018 Frequency: 11 times per week Estimated Hrs Per Day: .5 hour per day Patient and/or Family Agrees t: Yes Time/GCodes Time In: 1030 Time Out: 1045 Total Billed Treatment Time: 15 Total Billed Treatment [facility], [facility] YOSEPH CARRENO PT Sep 24, 2018 11:07
--- NOTE | 2018-09-24 11:08 | Occupational Therapy Eval ---
OT Evaluation-General/PLF Medical Diagnosis Admission Date Sep 23, 2018 at 09:39 Medical Diagnosis: hypertensive emergency, weakness Onset Date: Sep 23, 2018 Therapy Diagnosis Therapy Diagnosis: decr self care, decr funct mob, weakness, decr act adriana Height/Weight Height (Feet): 5 Height (Inches): 4.00 Weight (Pounds): 129 Weight (Ounces): 2.0 Precautions Precautions/Isolations: Fall Prevention, Standard Precautions Safety Interventions: Bed Exit Alarm, Diversional Activity Referral Physician: Fredis Referral Reason: Evaluation/Treatment Medical History Pertinent Medical History: DM, HTN, Neuropathy Additional Medical History Headache/migraines. TIA (pt denies stroke). Bladder infection. Hx severe electrolyte disturbances. Anxiety. Pancreatitis Current History Weakness for 24-48 hours, difficulty walking for a week. Hypertension. Hypomagnesemia and hypokalemia Reviewed History: Yes Social History Current Living Status: Spouse ADL-Prior Level of Function Functional [place] Measure 0=Not Assessed/NA 4=Minimal Assistance 1=Total Assistance 5=Supervision or Setup 2=Maximal Assistance 6=Modified [place] 3=Moderate Assistance 7=Complete [place] ADL PLOF Comments Pt reported that, until a week or so ago, she was able to manage her basic self care needs. 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 Pain not mentioned. Appearance Alert, cooperative Mental Status/Objective Patient Orientation: Person, Place, Situation Attachments: IV, Saline Lock, SCD's, Telemetry Current Hand Dominance: Right Upper Extremity ROM Grossly WFL bilat Upper Extremity Strength Grossly 3+/5, with difficulty following instructions ADL-Treatment ADL-Current Pt reported that she has trouble feeding herself, that she overshoots when she reaches for things and cannot smoothly get food to her mouth. Nursing reported that she was able to get up to BSC with one person assist. Pt required assistance in sitting up to EOB and standing (see PT eval). Observed listing to L when walking with PT and FWW. Co-eval with PT, with PT looking at transfers and mobility and OT addressing UE function. Functional [place] Measure 0=Not Assessed/NA 4=Minimal Assistance 1=Total Assistance 5=Supervision or Setup 2=Maximal Assistance 6=Modified [place] 3=Moderate Assistance 7=Complete IndependenceIRFPAI Quality Coding Scale 6 Independent with activity with or without an assistive device 5 Patient requires set up or clean up by helper. Patient completes activity by themselves 4 Supervision or touching assist (CGA). [place] provide cues , steadying assist 3 The helper provides less than half the effort to complete the activity 2 The helper provides more than half the effort to complete the activity 1 Dependent. The helper does all the effort to complete an activity 7 Patient refused to complete or attempt activity 9 The patient did not perform the activity before the current illness or injury 88 Not attempted due to Medical conditions or safety concerns Education OT Patient Education: Purpose of tx/functional activities, Rehab process Teaching Recipient: Patient Teaching Methods: Discussion Response to Teaching: Verbalize Understanding OT Group Home Goals Group Home Goals Time Frame: Oct 08, 2018 Eating (FIM): 6 Grooming(FIM): 6 Bathing(FIM): 5 Upper Body Dressing(FIM): 5 Lower Body Dressing(FIM): 5 Toileting(FIM): 5 Toilet/Commode Transfer(FIM): 5 Shower Transfer(FIM): 5 Additional Goals: 1-Demonstrate ADL Tasks, 2-Verbalize Understanding, 3- ImproveStrength/Shiv 1=Demonstrate adherence to instructed precautions during ADL tasks. 2=Patient will verbalize/demonstrate understanding of assistive devices/ modifications for ADL. 3=Patient will improve strength/tolerance for activity to enable patient to perform ADL's. OT Education/Plan Problem List/Assessment Assessment: Decreased Activ Tolerance, Decreased UE Strength, Dependent Transfers, Impaired Bed Mobility, Impaired Coordination, Impaired Funct Balance , Impaired Self-Care Skills Pt would benefit from skilled OT to increase her independence in basic self care Discharge Recommendations Plan/Recommendations: Continue POC Treatment Plan/Plan of Care Treatment,Training & Education: Yes Patient would benefit from OT for education, treatment and training to promote independence in ADL's, mobility, safety and/or upper extremity function for ADL' s. Plan of Care: ADL Retraining, Functional Mobility, UE Funct Exercise/Act, UE Neuromus Re-Ed/Coord Treatment Duration: Oct 08, 2018 Frequency: 5 times per week Estimated Hrs Per Day: .5 hour per day Agreement: Yes Rehab Potential: Fair Time/GCodes Start Time: 10:30 Stop Time: 10:45 Total Time Billed (hr/min): 15 Billed Treatment Time visit, 15 minutes evaluation high intensity (co-tx with PT) STAR ANDREWS OT Sep 24, 2018 11:08
--- NOTE | 2018-09-24 12:23 | Diagnostic Imaging Report ---
PROCEDURE: MR imaging of the brain with contrast. TECHNIQUE: Multiplanar, multisequence MR imaging of the brain was performed with contrast. INDICATION: Stroke versus a demyelinating disease. Correlation is made with the prior MRI from 09/23/2018. Comparison is also made with more remote examinations from 12/27/2017 and 06/22/2012. On the prior examination, there are multifocal regions of abnormal T2 hyperintense signal demonstrated within the white matter. Many of these do demonstrate a perpendicular orientation with respect to the lateral ventricles and appear to involve the callosal septal interface. There also is a T2 signal abnormality within the white matter along the temporal horns and there is bilateral signal abnormality demonstrated within the middle cerebellar peduncles. On today's postcontrast examination, none of these regions demonstrate evidence of contrast enhancement to suggest active demyelination. While it is believed that the patient likely does have a component of an underlying demyelinating process such as multiple sclerosis, the lesion within the left thalamus as well as of the foci within the left orozco radiata likely reflect superimposed regions of ischemia given the lack of enhancement on this exam. The focus within the right frontal lobe with more ringlike diffusion signal remains nonspecific. IMPRESSION: 1. The patient is believed to likely have background features of underlying multiple sclerosis given the distribution of the T2 signal changes within the periventricular white matter and their orientation as well as involvement of the callosal septal interface and middle cerebellar peduncles. 2. However, as the regions which demonstrate high diffusion signal on the prior examination do not demonstrate enhancement, these regions which demonstrate diffusion restriction are believed to more likely be regions of superimposed acute or subacute ischemia. Interval followup would be useful for further assessment to document expected evolution. Dictated by: Dictated on workstation # [id number]
[2018-09-24] MEDS ORDERED: hydrALAZINE (APESOLINE) 20 MG/ML VIAL IV NR (14:15)
[2018-09-24] MEDS ORDERED: hydrALAZINE (APESOLINE) 20 MG/ML VIAL ONE (14:17)
[2018-09-24] MEDS ORDERED: hydrALAZINE (APESOLINE) 20 MG/ML VIAL IV ONE (15:30)
[2018-09-24] MEDS ORDERED: meTOprolol 5 MG/5 ML (LOPRESSOR) VIAL IV ONE (18:00)
[2018-09-24] MEDS ORDERED: amLODIPine 5 MG (NORVASC) TAB PO ONE (18:00)
[2018-09-24] MEDS ORDERED: meTOprolol 5 MG/5 ML (LOPRESSOR) VIAL ONE (18:05)
[2018-09-24] MEDS: hydrALAZINE (APESOLINE) 20 MG/ML VIAL IV PRN (20:45)
[2018-09-24] MEDS ORDERED: ASPIRIN E.C. 81 MG (ECOTRIN) TAB PO SCH (21:00)
[2018-09-24] MEDS ORDERED: ATORVASTATIN 40 MG (LIPITOR) TABLET PO SCH (21:00)
[2018-09-24] MEDS ORDERED: inSUlin DETERMIR 1 UNIT/0.01 ML (LEVEMIR) CHARGE PER UNIT SQ SCH (21:00)
[2018-09-25] VITALS (22 sets, daily range): BP systolic 142–231; BP diastolic 72–131
[2018-09-25] MEDS: hydrALAZINE (APESOLINE) 20 MG/ML VIAL IV PRN ×3 (01:12→13:35)
[2018-09-25 03:37] LABS: BASOPHILS % (AUTO) 0 % (0-10); EOSINOPHILS % (AUTO) 0 % (0-10); HEMATOCRIT 41 % (35-52); HEMOGLOBIN 14.1 G/DL (11.5-16.0); LYMPHOCYTES # (AUTO) 0.7 X 10^3 (1.0-4.0); LYMPHOCYTES % (AUTO) 7 % (12-44); MEAN CORPUSCULAR HEMOGLOBIN 29 PG (25-34); MEAN CORPUSCULAR HGB CONC 34 G/DL (32-36); MEAN CORPUSCULAR VOLUME 84 FL (80-99); MEAN PLATELET VOLUME 11.7 FL (7.4-10.4); MONOCYTES # (AUTO) 0.4 X 10^3 (0.0-1.0); MONOCYTES % (AUTO) 4 % (0-12); NEUTROPHILS # (AUTO) 8.7 X 10^3 (1.8-7.8); NEUTROPHILS % (AUTO) 89 % (42-75); PLATELET COUNT 264 10^3/uL (130-400); RED BLOOD COUNT 4.94 10^6/uL (4.35-5.85); RED CELL DISTRIBUTION WIDTH 15.5 % (10.0-14.5); WHITE BLOOD COUNT 9.8 10^3/uL (4.3-11.0)
[2018-09-25 03:53] LABS: ANISOCYTOSIS SLIGHT; BAND NEUTROPHILS 0 %; BASOPHILS % (MANUAL) 0 %; EOSINOPHILS % (MANUAL) 0 %; LYMPHOCYTES % (MANUAL) 6 %; MONOCYTES % (MANUAL) 1 %; NEUTROPHILS % (MANUAL) 93 %; POLYCHROMASIA SLIGHT
[2018-09-25 03:54] LABS: BUN/CREATININE RATIO 15; CALCIUM 9.9 MG/DL (8.5-10.1); CARBON DIOXIDE 20 MMOL/L (21-32); CHLORIDE 101 MMOL/L (98-107); CREATININE SERUM 0.87 MG/DL (0.60-1.30); GFR ESTIMATED > 60; GLUCOSE 282 MG/DL (70-105); MAGNESIUM 1.3 MG/DL (1.8-2.4); POTASSIUM 3.3 MMOL/L (3.6-5.0); SODIUM 140 MMOL/L (135-145)
[2018-09-25] MEDS: inSUlin ASPART (NovoLOG) 1 UNIT/0.01 ML (CHARGE PER UNIT) SC SCH ×2 (05:23→10:42)
--- NOTE | 2018-09-25 07:32 | Diagnostic Imaging Report ---
PROCEDURE: CT head wo r/o stroke. TECHNIQUE: Multiple contiguous axial images were obtained through the brain without the use of intravenous contrast. INDICATION: New onset of weakness CT head without contrast There is some periventricular white matter changes consistent with chronic small vessel ischemic change. There are no masses or hemorrhages. There are no extra-axial fluid collections. IMPRESSION: Chronic ischemic leukoencephalopathy. No acute abnormality seen. Dictated by: Dictated on workstation # [id number]
[2018-09-25] MEDS: ALPRAZolam 0.25 MG (XANAX) TAB PO PRN (08:07)
[2018-09-25] MEDS ORDERED: ONDANSETRON 4 MG/2 ML (SDV) Z0FRAN IVP ONE (08:15)
--- NOTE | 2018-09-25 08:51 | Discharge Summary-Hospitalist ---
Diagnosis/Chief Complaint Date of Admission Sep 23, 2018 at 09:39 Date of Discharge Discharge Date: Sep 25, 2018 Admission Diagnosis HTN Emergency Discharge Diagnosis (1) Abnormal brain MRI Assessment & Plan: MRI done to evaluate for possible CVA Shows multiple areas concerning for acute infarct or demyelination Discussed with Stroke Neurology at [facility] who expressed concerned for MRI and requested MRI with Contrast and sagital flair Discussed these concerns with patient and expressed concern about contrast due to history of issues with iodine contrast Explained difference in the contrast and risk and benefits of not obtaining MRI with contrast They requested time to discuss amongst themselves and will let us know (2) Hypertensive emergency Status: Acute Assessment & Plan: BP remains very elevated Would like to get off Clonidine as sedative side effect is likely contributing to patient's clinical presentation [facility] Nitropaste ordered but pt's declined due to headache side effect (3) History of stroke Assessment & Plan: Had similar presentation in December and had an acute stroke MRI studies as above (4) Generalized weakness Assessment & Plan: PT/OT May be a a good candidate for IRU (5) hypomagnesemia Assessment & Plan: Normal currently (6) Insulin dependent diabetes mellitus Assessment & Plan: Resume home insulin SSI (7) Hyperlipidemia Status: Acute Assessment & Plan: Very elevated Will start on statin Discharge Summary Discharge Physical Exam Allergies: Coded Allergies: canagliflozin (Verified Allergy, Severe, ANAPHYLAXIS, 07/22/15) iodine (Unverified Adverse Reaction, Severe, migraine headache, 07/11/10) lorazepam (Verified Adverse Reaction, Severe, ELEVATED BLOOD PRESSURE, ) zolpidem (Verified Adverse Reaction, Severe, SLEEP WALK, 07/22/15) codeine (Unverified Adverse Reaction, Mild, INCREASED ACTIVITY, 08/13/10) erythromycin base (Unverified Adverse Reaction, Mild, NAUSEA, 08/13/10) Heparin Analogues (Unverified Adverse Reaction, Unknown, 08/13/10) Vitals & I&Os Vital Signs Date Time Temp Pulse Resp B/P (MAP) Pulse Ox O2 Delivery O2 Flow Rate FiO2 09/25/18 11:21 99.3 09/25/18 11:12 Room Air 09/25/18 11:00 120 13 201/117 (145) 97 General Appearance: No Apparent Distress, Chronically ill Cardiovascular: No Murmur, Tachycardia Neurologic/Psychiatric: Alert, Oriented x3, Motor Weakness (left upper extremity 3/5, left lower 4/5) Hospital Course Pt is a 67yoCF with a PMH of IDDMII, HTN, HLD, and CVA who presented to the ER due to weakness. She states for the past week she has been noticeably more weak than her baseline. She was found to be mildly hypomagnesemic and was admitted for further evaluation of weakness and inability to walk. MRI of Brain revealed possible acute infarcts or demyelinating disease. Discussions were had with [facility] Stroke Neurologist who recommended MRI Brain with contrast. This revealed likely background of MS but no active demyelination and agains areas of acute infarct. Throughout her stay she developed multiple episodes of acute focal deficits that would resolve within an hour. Discussion was had with patient and family about referral to tertiary center for neurology evaluation. I discussed case with Dr Ospina, neurology, at [place] who accepted patient in transfer. EMS was called for transfer and she was transferred with stable condition. Labs (last 24 hrs) Laboratory Tests 09/24/18 16:04: Glucometer 254H 09/24/18 20:33: Glucometer 194H 09/25/18 03:30: White Blood Count 9.8, Red Blood Count 4.94, Hemoglobin 14.1, Hematocrit 41, Mean Corpuscular Volume 84, Mean Corpuscular Hemoglobin 29, Mean Corpuscular Hemoglobin Concent 34, Red Cell Distribution Width 15.5H, Platelet Count 264, Mean Platelet Volume 11.7H, Neutrophils (%) (Auto) 89H, Lymphocytes (%) (Auto) 7L, Monocytes (%) (Auto) 4, Eosinophils (%) (Auto) 0, Basophils (%) (Auto) 0, Neutrophils # (Auto) 8.7H, Lymphocytes # (Auto) 0.7L, Monocytes # (Auto) 0.4, Eosinophils # (Auto) 0.0, Basophils # (Auto) 0.0, Neutrophils % (Manual) 93, Lymphocytes % (Manual) 6, Monocytes % (Manual) 1, Eosinophils % (Manual) 0, Basophils % (Manual) 0, Band Neutrophils 0, Polychromasia SLIGHT, Anisocytosis SLIGHT, Sodium Level 140, Potassium Level 3.3L, Chloride Level 101, Carbon Dioxide Level 20L, Anion Gap 19H, Blood Urea Nitrogen 13, Creatinine 0.87, Estimat Glomerular Filtration Rate > 60, BUN/Creatinine Ratio 15, Glucose Level 282H, Calcium Level 9.9, Magnesium Level 1.3L 09/25/18 10:33: Glucometer 296H Patient resulted labs reviewed. Pending Labs Laboratory Tests 09/25/18 10:33: Glucometer 296 Imaging: Reviewed Imaging Report Discussion & Recommendations Discharge Planning: >30 minutes discharge planning Discharge Home Medications: Active Scripts Active Reported Cetirizine HCl 10 Mg Tablet 10 Mg PO DAILY Clonidine HCl 0.1 Mg Tablet 0.1 Mg PO TID Glyburide 5 Mg Tablet 5 Mg PO 1800 Metanx Capsule (Levomefolate/B6/B12/Algal Oil) 1 Each Capsule 1 Cap PO BID Vitamin D3 (Cholecalciferol (Vitamin D3)) 2,000 Unit Tab.chew 1,000 Unit PO DAILY Aspirin EC (Aspirin) 81 Mg Tablet.dr 81 Mg PO HS Fluticasone Propionate 16 Gm [place].susp 2 Sprays NS DAILY PRN Levemir Flextouch (Insulin Detemir) 100 Unit/1 Ml Insuln.pen 8 Units SC HS Losartan Potassium 50 Mg Tablet 50 Mg PO DAILY Metformin HCl 500 Mg Tablet 1,000 Mg PO BID TAKES 2 (500MG) TABLETS Glyburide 5 Mg Tablet 2.5 Mg PO DAILY TAKES 1/2 (5MG) TABLET WITH BREAKFAST AND 1 (5MG) TABLET WITH SUPPER Metoprolol Succinate 100 Mg Tab.er.24h 50 Mg PO BID TAKES 1/2 (100MG) TABLET Potassium Chloride 10 Meq Tablet.er 10 Meq PO DAILY Alprazolam 0.5 Mg Tablet 0.5 Mg PO TID PRN Instructions to patient/family Please see electronic discharge instructions given to patient. Clinical Quality Measures DVT/VTE Risk/Contraindication: Risk Factor Score Per Nursin RFS Level Per Nursing on Admit: 2=Moderate Copy Copies To 1: DECLAN SANTOS MD Problem Qualifiers (1) Hyperlipidemia: Hyperlipidemia type: mixed hyperlipidemia Qualified Codes: E78.2 - Mixed hyperlipidemia NATI GARCIA MD Sep 25, 2018 8:51 am
[2018-09-25] MEDS ORDERED: amLODIPine 5 MG (NORVASC) TAB PO SCH (09:00)
[2018-09-25] MEDS ORDERED: meTOprolol SUCCINATE 100 MG (TOPROL XL) TAB PO SCH (09:00)
[2018-09-25] MEDS ORDERED: lisINopril 20 MG (PRINIVIL) TABLET PO SCH (09:00)
[2018-09-25] MEDS: KCL 10 MEQ TAB (MICRO K) PO SCH (09:15)
[2018-09-25] MEDS ORDERED: meTOprolol 5 MG/5 ML (LOPRESSOR) VIAL IV ONE (09:15)
[2018-09-25] MEDS: FOLIC ACID 1 MG TAB PO SCH (09:15)
[2018-09-25] MEDS: LORATADINE (CLARITIN) 10 MG TAB PO SCH (09:15)
[2018-09-25] MEDS: ENALAPRILAT 2.5 MG/2 ML (VASOTEC) VIAL IV PRN (10:42)
== END 2018-09-25 14:12 | disposition short-term general hospital (02) | DRG 305 ==
LOC: EDUNIT# 06:26 → ER 06:28 → LDRP 06:30 → ICU 09:39 → OBSVTOIN 09:39
PROVIDERS: ADMIT Family Medicine; ATTEND Family Medicine
DX: I16.1 Hypertensive emergency (principal); E83.42 Hypomagnesemia; E87.6 Hypokalemia; R41.89 Other symptoms and signs involving cognitive functions and awareness; R93.0 Abnormal findings on diagnostic imaging of skull and head, not elsewhere classified; E78.2 Mixed hyperlipidemia; E11.9 Type 2 diabetes mellitus without complications; F41.9 Anxiety disorder, unspecified; R53.1 Weakness; Z79.4 Long term (current) use of insulin; Z86.73 Personal history of transient ischemic attack (TIA), and cerebral infarction without residual deficits
CPT/HCPCS: 36415; 70450; 70551; 70552; 71045; 80048; 80053; 80061; 81000; 82550; 82962; 83735; 83880; 84443; 84484; 85007; 85025; 85027; 93005; 93041; 93306; 96365; 96375; 96376

== ENCOUNTER 2018-10-03 11:30 | Inpatient (IN) | payer MEDICARE ==
[~2018-10-03] VITALS: Ht 162.6 cm; Wt 51.7 kg
[~2018-10-03 11:30] MED LIST changes: +CETI10TA17 PO
--- NOTE | 2018-10-03 13:40 | NUR ---
Pt admitted to room 222, with an admitting diagnosis of exacerbation of M/S, from [facility], via EMS, accompanied by 2 EMS attendants. EDMUND FELIX introduced to surroundings, call light, bed controls, phone, TV, temperature control, lights, meal times, smoking policy, visitor policy, side rail policy, bathrooms and showers. Patient Rights given to patient in the handbook. EDMUND FELIX verbalizes understanding that [facility] is not responsible for the loss or damage to any personal effects or valuables that are kept in the patients posession during their hospitalization. The following Patient Care Plans were discussed with the pt: Discharge Planning, Impaired Mobility, Self Care Deficit, Potential for fall/injury. EDMUND FELIX acknowledges understanding of Interdisciplinary Patient Education. Patient and/or family were informed about the Rapid Response Team and its purpose. Patient received Patient Rights Booklet, which includes Privacy Act Statement and Data Collection Information Summary.
[2018-10-03 13:50] VITALS: BP 143/80
--- NOTE | 2018-10-03 15:00 | Physical Therapy Evaluation ---
PT Evaluation-General Medical Diagnosis Admission Date Oct 03, 2018 at 13:40 Medical Diagnosis: MS Onset Date: Sep 23, 2018 Therapy Diagnosis Therapy Diagnosis: weakness; abn gait Height/Weight Height (Feet): 5 Height (Inches): 4.00 Weight (Pounds): 141 Weight (Ounces): 2.0 Precautions Precautions/Isolations: Standard Precautions Weight Bear Status Right Lower Extremity: Right Full Weight Bearing Left Lower Extremity: Left Full Weight Bearing Referral Physician: Kevin Reason for Referral: Evaluation/Treatment Medical History Pertinent Medical History: Atrial Fib, CVA (2009), DM, HTN, Neuropathy Additional Medical History multiple TIA's; Pt had an event in December 2017 of slurred speech and was found to have low magnesium (per spouse report). Current History Pt presented to [facility] 09/23/2018 with hypertensive emergency. She was evaluated and her diagnosis was CVA vs MS. Pt was transferred to [facility] in [place]. DI is suggestive of MS with improved condition post treatment for this. She has transferred back to this unit ([facility]) for continued medical management and skilled therapy intervention. Reviewed History: Yes Social History Home: Single Level Current Living Status: Spouse Entry Into Home: Stairs Without Railing PT Steps Into Home: 2 Prior/Core FIM Prior Level of Function Therapy Code Descriptions/Definitions Functional [place] Measure: 0=Not Assessed/NA 4=Minimal Assistance 1=Total Assistance 5=Supervision or Setup 2=Maximal Assistance 6=Modified [place] 3=Moderate Assistance 7=Complete [place] Therapy Quality Codes: 6 Independent with activity with or without an assistive device 5 Patient requires set up or clean up by helper. Patient completes activity by themselves 4 Supervision or touching assist (CGA). [place] provide cues , steadying assist 3 The helper provides less than half the effort to complete the activity 2 The helper provides more than half the effort to complete the activity 1 Dependent. The helper does all the effort to complete an activity 7 Patient refused to complete or attempt activity 9 The patient did not perform the activity before the current illness or injury 88 Not attempted due to Medical conditions or safety concerns Functional Abilities and Goals: Independent: Patient completed the activities by him/herself, with or without an assistive device, with no assistance from a helper. Needed Some Help: Patient needed partial assistance from another person to complete activities. Dependent: A helper completed the activities for the patient. Unknown: Not Applicable: Bed Mobility: 7 Transfers (B,C,W/C) (FIM): 7 Gait: 7 Stairs: 6 Indoor Mobility (Ambulation): Independent Stairs: Needed Some Help Spouse reports she was starting to decline just before Thanksgiving; however, prior to that, she was indep with gait in her home; indep with self care and had even recently played the piano at [place] [employer]; in the recent past her driving had been limited; he reports she helped in cooking and cleaning at home as well. PT Evaluation-Current Subjective Pt agreeable to PT. Mentions multiple times that she is tired; also reports, "I 'm so weak." Pain Comment: Intermittent leg pain; no pain at this time. Pt/Family Goals pt and spouse report the goal is to return home. Objective Patient Orientation: Person, Confused (slight confusion; poor historian), Place , Time, Situation Problem Solving: Poor ROM/Strength ROM Lower Extremities ROM is WNL all planes Strenght Lower Extremities Right LE: hip flexion 2+/5; quads 2+/5; DF 2/5; abduction 2/5 Left LE: hip flexion 2/5; quads 2/5; DF 1/5; abd 1/5. Integumentary/Posture Integumentary Intact; refer to nursing notes for full assessment. Bladder Incontinence: [place] Cath Posture Her shoulders are symmetrical when cued to sit straight; however, pt slumps shoulders and head down mostly in a posterior pelvic tilt; likely due to functional weakness of the postural muscles. Neuromuscular (Tone, Coordination, Reflexes) Tone is normal; impaired functional coordination due to weakness; LE reflexed seem diminished but intact. Sensory Vision: Functional Hearing: Functional Hand Dominance: Right Sensation Right Lower Extremit: Intact Transfers Therapy Code Descriptions/Definitions Functional [place] Measure: 0=Not Assessed/NA 4=Minimal Assistance 1=Total Assistance 5=Supervision or Setup 2=Maximal Assistance 6=Modified [place] 3=Moderate Assistance 7=Complete [place] Therapy Quality Codes: 6 Independent with activity with or without an assistive device 5 Patient requires set up or clean up by helper. Patient completes activity by themselves 4 Supervision or touching assist (CGA). [place] provide cues , steadying assist 3 The helper provides less than half the effort to complete the activity 2 The helper provides more than half the effort to complete the activity 1 Dependent. The helper does all the effort to complete an activity 7 Patient refused to complete or attempt activity 9 The patient did not perform the activity before the current illness or injury 88 Not attempted due to Medical conditions or safety concerns Transfers (B, C, W/C) (FIM): 1 Scootin Rollin Roll Left to Right (QC): 1 Supine to/from Sit: 1 Sit to/from Stand: 2 bed t/f WC(FIM only if WC use): 1 Sit to Lying (QC): 1 Lying to Sitting/Side of Bed(Q: 1 Sit to Stand (QC): 2 Chair/Wwc-rn-Kbvhs Xfer(QC): 1 Car Transfer (QC): 1 Pt requires assist of 2 for bed mobility and cues 100% of the time for task initiation and completion. She is able to participate and initiate a stand, but still requires max assist; she is dependent to SPT bed to/from chair and is unable to move her feet to turn ; sit to superintendent [employer] the // bars, with max assist and unable to come to a full stand. Gait Does the Patient Walk?: No and Walking Goal IS indicated Mode of Locomotion: Both Anticipated Mode of Locomotion: Walk Gait (FIM): 0 (unable to ambulate at this time. ) Distance (FIM): 0=does not occure Walk 10 feet (QC): 88 Walk 50 ft with 2 Turns(QC): 88 Walk 150 ft (QC): 88 Walking 10ft/uneven surface-QC: 88 Comments/Gait Description Pt unable to ambulate or initiate taking steps at this time. Wheelchair Training Does the Pt Use a Wheelchair?: Yes Wheelchair (FIM): 1 Wheelchair Distance (FIM): 1=up to 49 ft Distance: 0 feet Wheelchair Level of Assist: 1 Wheel 50 ft with 2 turns (QC): 1 Wheel 150 ft (QC): 1 Type of Wheelchair: Manual Pt places feet on floor and therapist places her hands on the wheel to propel the wc but pt unable to effectively use her UE or LE to propel the wc. Pt did not initiate any activity to propel the chair. Stairs Stairs (FIM): 0 (unable to take steps) #of Steps: 0 1 Step (curb) (QC): 88 4 Steps (QC): 88 12 Steps (QC): 88 If not tested on admit;explain Pt unable to take steps to walk; therefore; unable to perform stairs. Balance Sitting Static: Poor Sitting Dynamic: Poor Standing Static: Poor Standing Dynamic: Poor Picking up an Object (QC): 88 (unable to attempt) Special Test Comments Poor seated balance and unsafe to leave unattended at EOB. Postural musculature weakness present and poor initiation/anticipatory response with balance pertebation to recover her balance in sitting. Pt is dependent in standing; therefore balance is not effectively assessed. Treatment Worked on initiation of tasks and participatin in bed mobility; transfers; standing in // bars and attempted wc mobility. Spent time educating on importance of pt initiating tasks and then guiding pt to complete the task. Sit to [employer] // bars x3 with max assist. SPT x 2 with dep assist; pt unable to move feet to transfer. Assessment/Needs Pt presents with likely diagnosis of MS. She has a flat affect with little to no initiation of tasks and presents significantly deconditioned and weak. Her extremity and postural musculature is very weak with impairs bed mobility, transfers and she is unable to ambulate at this time. She will beneifit from skilled therapy intervention to address these deficits to improve her functional mobility and allow her to return home as before. WC mobility will be implemented as well to increase her indep within her room and the unit until she is able to safely walk. Rehab Potential: Guarded PT Short Term Goals Short Term Goals Time Frame: Oct 17, 2018 Transfers (B,C,W/C) (FIM): 4 Gait (FIM): 2 Distance (FIM): 4=575-76 ft Gait Distance Comment: 50 ft Gait Level of Assist: 4 Gait Assistive Device: FWW Stairs (FIM): 2 # of Steps: 1 PT Half-Way Goals Half-Way Goals PT Inspector Material Disposition Goals Time Frame: Oct 31, 2018 Transfers (B,C,W/C) (FIM): 6 Sit to Lying (QC): 6 Lying-Sitting on Side/Bed(QC): 6 Sit to Stand (QC): 6 Roll Left to Right (QC): 6 Chair/Irx-bk-[id number] Xfer(QC): 6 Car Transfer (QC): 5 Does the Patient Walk: No and Walking Goal IS indicated Gait (FIM): 6 Gait distance (FIM): 3=150 ft Walk 10 feet (QC): 6 Walk 10ft-Uneven Surface(QC): 5 Walk 50ft with 2 Turns (QC): 6 Walk 150 ft (QC): 6 Gait Level of Assist: 6 Gait Assistive Device: FWW Does the Pt use WC or Scooter?: Yes Wheelchair (FIM): 6 Wheelchair distance (FIM): 3=150 ft Wheel 50 feet with 2 turns (QC: 6 Stairs (FIM): 5 # of Steps: 4 1 Step (curb) (QC): 6 4 Steps (QC): 6 12 Steps (QC): 88 Picking up an Object (QC): 4 PT Plan Problem List Problem List: Activity Tolerance, Functional Strength, Safety, Balance, Gait, Transfer, Bed Mobility Treatment/Plan Treatment Plan: Continue Plan of Care Treatment Plan: Bed Mobility, Education, Functional Activity Shiv, Functional Strength, Group Therapy, Gait, Safety, Therapeutic Exercise, Transfers Treatment Duration: Oct 31, 2018 Frequency: At least 5 of 7 days/Wk (IRF) Estimated Hrs Per Day: 1.5 hours per day Patient and/or Family Agrees t: Yes Safety Risks/Education Patient Education: Transfer Techniques, Safety Issues Teaching Recipient: Patient Teaching Methods: Demonstration, Discussion Response to Teaching: Reinforcement Needed Discharge Recommendations Therapy D/C Recommendations: Physical Therapy Home Care Time/GCodes Time In: 1350 Time Out: 1425 Total Billed Treatment Time: 35 Total Billed Treatment visit EVM 10 FA 25 JORGE WINCHESTER PT Oct 03, 2018 15:00
[2018-10-03 15:25] VITALS: BP 115/75
--- NOTE | 2018-10-03 16:42 | Occupational Therapy Eval ---
OT Evaluation-General/PLF Medical Diagnosis Admission Date Oct 03, 2018 at 13:40 Medical Diagnosis: MS Onset Date: Sep 23, 2018 Therapy Diagnosis Therapy Diagnosis: Debility Height/Weight Height (Feet): 5 Height (Inches): 4.00 Weight (Pounds): 141 Weight (Ounces): 2.0 Precautions Precautions/Isolations: Aspiration, Fall Prevention, Standard Precautions, Pressure Ulcer Weight Bear Status Weight Bearing Restriction: Weight Bearing/Tolerated Referral Physician: Kevin Referral Reason: Activity Tolerance, Self Care, Evaluation/Treatment, Strengthening/ROM Medical History Pertinent Medical History: Atrial Fib, CVA (2009), DM, HTN, Neuropathy Additional Medical History MS Current History Spouse states that pt. was home and doing well until Thanksgi. Became weak and had to be admitted to hospital. States that she did not use anything to ambulate with. Reviewed History: Yes Social History Home: Single Level Current Living Status: Spouse Entry Into Home: Stairs Without Railing Steps Into Home: 2 ADL-Prior Level of Function Therapy Code Descriptions/Definitions Functional [place] Measure: 0=Not Assessed/NA 4=Minimal Assistance 1=Total Assistance 5=Supervision or Setup 2=Maximal Assistance 6=Modified [place] 3=Moderate Assistance 7=Complete [place] Therapy Quality Codes: 6 Independent with activity with or without an assistive device 5 Patient requires set up or clean up by helper. Patient completes activity by themselves 4 Supervision or touching assist (CGA). [place] provide cues , steadying assist 3 The helper provides less than half the effort to complete the activity 2 The helper provides more than half the effort to complete the activity 1 Dependent. The helper does all the effort to complete an activity 7 Patient refused to complete or attempt activity 9 The patient did not perform the activity before the current illness or injury 88 Not attempted due to Medical conditions or safety concerns Functional Abilities and Goals: Independent: Patient completed the activities by him/herself, with or without an assistive device, with no assistance from a helper. Needed Some Help: Patient needed partial assistance from another person to complete activities. Dependent: A helper completed the activities for the patient. Unknown: Not Applicable: ADL PLOF Comments Prior to , spouse states that pt. was independent with all ADLs. 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 Self Care: Independent Functional Cognition: Independent DME/Equipment Comments Pt. does not have any equipment. Drive Self: Yes OT Current Status Subjective Pt. does not report any pain. Does have difficulty staying awake and mumbles throughout treatment when trying to answer a question. Appearance Pt. in wheelchair. Has just finished treatment with PT. Agrees to work with OT. Mental Status/Objective Patient Orientation: Unable to Assess Current Hand Dominance: Right Upper Extremity ROM Very limited. Pt. is asked to flex bilateral shoulders actively. Pt. attempts to do so, but seems to become fatigued and then forgets what she is doing. Pt. puts both hands down. Upper Extremity Coordination Impaired. Pt. has difficulty holding items, including a washcloth, toothbrush, and brush. Upper Extremity Strength Unable to follow commands to test strength. ADL-Treatment Grooming (FIM): 2 (Please see below.) Oral Hygiene (QC): 2 Lower Body Dressing (FIM): 1 (Please see below.) Lower Body Dressing (QC): 1 On/Off Footwear (QC): 1 Transfers (B, C, W/C) (FIM): 2 (Please see below.) Other Treatments Pt. is poor historian. Has difficulty communicating at times. Pt. transferred to this facility from [facility] via ambulance, and is fatigued. OT gave pt. warm washcloth, as pt. does report that she has had the same makeup on for 3 days. Pt. is encouraged to wash her face. Pt. is able to slightly wash part of the bottom of face, but only dabs at face. OT washes pt's face for her. Pt. is handed brush and is asked to brush her hair. Pt. unable to figure out how to hold brush correctly. Pt. is then set up with toothbrush/toothpaste and encouraged to brush her teeth. Pt. does brush teeth, but unsure on how thorough this is. Pt. is unable to reach her feet to doff slipper socks. Taken to room and transfer sit-stand with max assist, and then pivot with max assist to bed. Once pt. is sitting, she is unable to initiate the transfer of lying down. OT assists with sit-supine with dependent assistance needed. Spouse in room at this time and states that this is new behavior overall for pt. , and that she was independent prior to . Pt. has difficulty initiating tasks or participating. All needs met. Education OT Patient Education: Correct positioning, Modified ADL techniques, Progress toward Goal/Update tx plan, Purpose of tx/functional activities, Reviewed precautions, Rehab process, Transfer techniques Teaching Recipient: Patient, Significant Other Teaching Methods: Demonstration, Discussion Response to Teaching: Reinforcement Needed OT Short Term Goals Short Term Goals Time Frame: Oct 17, 2018 Eating(FIM): 3 Grooming(FIM): 3 Bathing(FIM): 3 Upper Body Dressing(FIM): 4 Lower Body Dressing(FIM): 3 Toileting(FIM): 3 Transfers (B,C,W/C) (FIM): 4 Toilet/Commode Transfer(FIM): 4 Shower Transfer(FIM): 4 Additional Short Term Goals: 1-Demonstrate ADL Tasks, 2-Verbalize Understanding , 3-ImproveStrength/Shiv 1=Demonstrate adherence to instructed precautions during ADL tasks. 2=Patient will verbalize/demonstrate understanding of assistive devices/ modifications for ADL. 3=Patient will improve strength/tolerance for activity to enable patient to perform ADL's. OT Care Home Goals Care Home Goals Time Frame: Oct 31, 2018 Eating (FIM): 6 Eating (QC): 6 Groomin Oral Hygiene (QC): 5 Bathing(FIM): 5 Shower/Bathe Self (QC): 4 Upper Body Dressing(FIM): 5 Upper Body Dressing (QC): 5 Lower Body Dressing(FIM): 5 Lower Body Dressing (QC): 4 On/Off Footwear (QC): 4 Toileting(FIM): 6 Toileting Hygiene (QC): 6 Transfers (B,C,W/C) (FIM): 6 Toilet/Commode Transfer(FIM): 6 Toilet/Commode Transfer (QC): 6 Shower Transfer(FIM): 5 Additional Goals: 1-Demonstrate ADL Tasks, 2-Verbalize Understanding, 3- ImproveStrength/Shiv 1=Demonstrate adherence to instructed precautions during ADL tasks. 2=Patient will verbalize/demonstrate understanding of assistive devices/ modifications for ADL. 3=Patient will improve strength/tolerance for activity to enable patient to perform ADL's. OT Education/Plan Problem List/Assessment Assessment: Decreased Activ Tolerance, Decreased Safety Aware, Decreased UE Strength, Dependent Transfers, Impaired Bed Mobility, Impaired Cognition, Impaired Coordination, Impaired Funct Balance, Impaired I ADL's, Impaired Self- Care Skills, Restricted Funct UE ROM Discharge Recommendations Plan/Recommendations: Continue POC Therapy D/C Recommendations: Home w/ Family Support, Occupational Therapy Home Care, Scheduled Assistance Treatment Plan/Plan of Care Treatment,Training & Education: Yes Patient would benefit from OT for education, treatment and training to promote independence in ADL's, mobility, safety and/or upper extremity function for ADL' s. Plan of Care: ADL Retraining, Caregiver Training, Cognitive Retraining, Functional Mobility, Group Exercise/Act as Ind, UE Funct Exercise/Act Treatment Duration: Oct 31, 2018 Frequency: At least 5 of 7 days/Wk (IRF) Estimated Hrs Per Day: 1.5 hours per day Agreement: Yes Rehab Potential: Fair Time/GCodes Start Time: 14:25 Stop Time: 15:00 Total Time Billed (hr/min): 35 Billed Treatment Time 1, EVH x 15minutes, FA x 20minutes LOIS COBOS OT Oct 03, 2018 16:42
--- NOTE | 2018-10-03 17:34 | NUR ---
states that he & pt decided when she was in [place] at [facility] that they didn't want her to take flu vaccine until she got stronger.
--- NOTE | 2018-10-03 17:59 | NUR ---
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 States that he spoke w the doctors at [facility] about this, but, didn't feel that they paid attention to him. States that pt did have extremely high B/P while at [facility], but, that he was sure it was related to anxiety. states, "that's when they started giving her Xanax 3 x's a day. Her B/P got a lot better then, but, she was much more drowzy. does not want pt to take scheduled Xanax TID, states, "maybe 1 in the morning, would work for her, but, not 3 times a day. Assured that we would notify Dr. Brown of this.
[2018-10-03] MEDS ORDERED: NON-FORMULARY MEDICATION 1 EA EA TOP PRN (18:00)
[2018-10-03] MEDS ORDERED: NON-FORMULARY MEDICATION 1 EA EA PO SCH (18:00)
[2018-10-03] MEDS ORDERED: FLU QUADRIvalent (5+ YOA) 2018-2019 (AFLURIA) 0.5 ML IM ONE (18:45)
[2018-10-03] MEDS ORDERED: MOMETASONE 0.1% CREAM 15 GM (ELOCON) TOP PRN (18:45)
--- NOTE | 2018-10-03 18:48 | NUR ---
Call to Pharmacy & notified that Glyburide is not in [facility], scheduled at 1800. States that they will bring up in approx 15 min
[2018-10-03] MEDS: cloNIDine 0.1 MG (CATAPRES) TAB PO SCH (21:02)
[2018-10-03] MEDS: meTOprolol TARTRATE 50 MG (LOPRESSOR) TAB PO SCH (21:02)
[2018-10-03] MEDS: CEPHALEXIN 250 MG (KEFLEX) CAP PO SCH (21:02)
[2018-10-03] MEDS: FOLIC ACID 1 MG TAB PO SCH (21:02)
[2018-10-03] MEDS: ASPIRIN E.C. 81 MG (ECOTRIN) TAB PO SCH (21:03)
[2018-10-03] MEDS: inSUlin DETERMIR 1 UNIT/0.01 ML (LEVEMIR) CHARGE PER UNIT SQ SCH (21:03)
[2018-10-03] MEDS: glyBURIDE 5 MG (MICRONASE) TAB PO SCH (21:03)
--- NOTE | 2018-10-03 22:01 | HISTORY AND PHYSICAL ---
DATE OF SERVICE: 10/03/2018 CHIEF COMPLAINT: Difficulty with walking. HISTORY OF PRESENT ILLNESS: The patient is a 67-year-old female who was admitted to [facility] due to ongoing weakness and a decline in function. She had various testing and was seen by neurology and it was felt that clinically she had MS, so she was provided with IV steroids with some improvement. She has urinary retention, which is being monitored and managed with an inpatient Carson catheter. Currently, she requires assistance for ADLs and mobility skills and was referred to inpatient rehabilitation unit. Her spouse presents to unit with her. She has been modified independent up until recently. She started to decline just before Thanksgi. She is on a modified diet for dysphagia.She is currently dependent for transfers and non ambulatory.She is max assist for grooming and dependent for dressing. PAST MEDICAL HISTORY: Atrial fibrillation, stroke in 2009, diabetes mellitus, hypertension, diabetic peripheral neuropathy. PAST SURGICAL HISTORY: Noncontributory. ALLERGIES: HEPARIN, CODEINE, ERYTHROMYCIN, IODINE, LORAZEPAM, AMBIEN. FAMILY HISTORY: Noncontributory. 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 She did present to [facility] ED on 09/23/2018 with hypertensive emergency. From there, she was transferred to [facility]. She is on a variety of medications for blood pressure control as well as Xanax for anxiety. The patient's spouse requested that amlodipine be held as her blood pressure is running low and she continues on her home metoprolol, Catapres and losartan. REVIEW OF SYSTEMS: A 10-point review of systems significant for urinary retention, weakness. MEDICATIONS: Amlodipine on hold, metoprolol 50 to 75 mg p.o. b.i.d., KCl 10 mEq p.o. daily, lactobacillus one capsule p.o. daily, glyburide 2.5 mg p.o. in a.m., Catapres 0.1 mg p.o. t.i.d., magnesium citrate 100 mg p.o. at noon, Flonase two sprays nasally every 24 hours p.r.n., ASA 81 mg p.o. daily, glyburide 5 mg at evening, vitamin C 500 mg at noon and Xanax 0.5 mg p.o. t.i.d. p.r.n. anxiety. The patient's spouse requested that this will be given only p.r.n. at night. PHYSICAL EXAMINATION: GENERAL: Significant for a pleasant female, appearing quite fatigued, lying in bed, no acute distress. VITAL SIGNS: Blood pressure is 112/80. She is afebrile, respirations 20, pulse is 80. HEENT: Vision, speech, hearing is functional. No oral lesion is noted. NECK: Supple without mass. HEART: Regular rhythm. CHEST: Clear. ABDOMEN: Soft, nontender. Bowel sounds present. EXTREMITIES: No lower leg edema. No calf tenderness. MUSCULOSKELETAL: The patient has functional passive range of motion in all 4 limbs. Strength in the lower limbs, right hip flexion 3+/5, quads 2+/5, dorsiflexion 2/5, abduction 2/5; left lower limb, hip flexion 2/5, quads 2/5, dorsiflexion 1/5, abduction 1/5. She is right hand dominant. Sensation is grossly intact to touch. She has weakness in both upper limbs as well. She has a documented dysphagia and fatigues easily. IMPRESSION: 1. MS exacerbation status post course of steroids. 2. Hypertension, controlled with medication. 3. Diabetes mellitus, controlled with medication. 4. Anxiety. PLAN: The patient will have a comprehensive program of inpatient rehabilitation with goal of maximizing level of functional independence prior to discharge home with spouse. The patient will have PT, OT 90 minutes per day each discipline, 5 days a week for 2 weeks with the above goals in mind. Please see post-admission physician evaluation, which is separate document for details of plan of care. ST for ongoing speech and cognitive and dysphagia RX Rehabilitation nursing assist with bowel, bladder, skin care, medication administration, pain management. nutrition services aide to assist with discharge planning, community reentry, Carson catheter care. Follow up with a neurologist on an outpatient basis. Consult hospitalist service in lieu of Dr. Goldsmith, PCP for medical assistance. Monitor Accu-Cheks and adjust medications as needed. Change Xanax to bedtime p.r.n. Adjust blood pressure medications as needed.Lovenox subcut for dvt prophylaxis.Consult Urologist if needed if TOV unsuccessful. ESTIMATED LENGTH OF STAY: 3 weeks. PROGNOSIS: Rehab prognosis appears good for goal of discharging home with spouse, modified independent to supervision for ADLs and mobility skills. DIET: Carb consistent modified consistency. CODE STATUS: Full code. Job ID: [id number] DocumentID: [id number] Dictated Date: 10/03/2018 20:24:20 Boiler Repair Supervisor Date: 10/03/2018 22:01:06 Dictated By: SHARA MITCHELL MD [facility]
[2018-10-04 05:09] VITALS: BP 148/84
[2018-10-04] MEDS: glyBURIDE 2.5 MG (MICRONASE) TAB PO SCH (06:38)
[2018-10-04] MEDS: metFORMIN 500 MG (GLUCOPHAGE) TAB PO SCH ×2 (06:38→17:05)
[2018-10-04] MEDS: MULTIVIT W/MINERALS TAB (THERAGRAN M) PO SCH (06:38)
[2018-10-04] MEDS: KCL 10 MEQ TAB (MICRO K) PO SCH (06:38)
[2018-10-04] MEDS: LACTOBACILLUS ACIDOPHILUS (PROBIOTIC) CAPSULE PO SCH (06:39)
[2018-10-04 08:01] VITALS: BP 146/85
[2018-10-04] MEDS: VITAMIN D3 1,000 UNITS (CHOLECALCIFEROL) TABLET PO SCH (08:05)
[2018-10-04] MEDS: FOLIC ACID 1 MG TAB PO SCH (08:06)
[2018-10-04] MEDS: meTOprolol TARTRATE 50 MG (LOPRESSOR) TAB PO SCH ×2 (08:06→20:59)
[2018-10-04] MEDS: CEPHALEXIN 250 MG (KEFLEX) CAP PO SCH ×2 (08:06→20:59)
[2018-10-04] MEDS: cloNIDine 0.1 MG (CATAPRES) TAB PO SCH ×3 (08:06→20:58)
[2018-10-04] MEDS: FLUTICASONE NASAL SPRAY (FLONASE) 16 GM BTL NS SCH (08:58)
[2018-10-04] MEDS ORDERED: MULT-166 PO (09:55)
[2018-10-04] MEDS ORDERED: HYDR15CR36 TP (09:55)
[2018-10-04] MEDS ORDERED: ASCO-262 PO (09:55)
[2018-10-04] MEDS ORDERED: MAGN100T6 PO (09:55)
[2018-10-04] MEDS ORDERED: LACT1CAP74 PO (09:55)
--- NOTE | 2018-10-04 10:05 | NUR ---
UPDATED MED REC TO THE LIST OF MEDICATIONS THE PATIENT WAS TAKING PRIOR TO DISCHARGE FROM [facility] USING THE DISCHARGE MEDICATION LIST. NOTE THE FOLLOWING CHANGES WERE MADE WHEN THE PATIENT DISCHARGED TO REHAB THAT ARE NOT CURRENTLY REFLECTED ON THE HOME MED REC: START TAKING: AMLODIPINE 10MG BID METOPROLOL TARTRATE 75MG ID KEFLEX 500MG BID LACTOBACILLUS DAILY STOP TAKING: METOPROLOL SUCCINATE 50MG BID THE 3 NEW PRINTED PRESCRIPTIONS, A NEW SCRIPT FOR XANAX, AND THE DISCHARGE MED ORDERS FROM [facility] WERE PLACED ON THE YELLOW FOLDER WITH THE PATIENTS CHART.
--- NOTE | 2018-10-04 10:18 | PM&R Post Admission Assessment ---
Post Admission Physician Asses Date seen by provider: Oct 04, 2018 Time seen by provider: 10:00 The preadmission screen agrees with the post admission assessment that the patient is a good candidate for inpatient rehabilitation. The patient will have a comprehensive program of inpatient rehabilitation with a goal of maximizing level of functional independence prior to discharge home with spouse. The patient will have PT/OT ninety minutes per day, each discipline, five days a week for 3 weeks for gait, strengthening, conditioning, balance, ADLs, any patient/family/caregiver training as necessary. Speech therapy to do cognitive ,speech and swallow assessment and treat as indicated 5 days a week for 30 to 45 min per day for 2 to 3weeks. Rehabilitation nursing to assist with bowel, bladder, Carson catherer care,skin, medication administration , pain management. Plant Senior Manager to assist with discharge planning, community reentry. SCD's for DVT prophylaxis. She appears to be well motivated to participate in three hours of therapy a day. She should be able to tolerate three hours of therapy a day from a medical standpoint. She should benefit from the three hours of therapy a day. She has a reasonable discharge plan, reasonable discharge rehabilitation goals and a supportive family. She has various comorbidities that need to be closely monitored with medications and treatments adjusted on a daily basis as needed. These include: HTN DM2 Urinary retention [facility] code 03.1 Etiologic DX Active MS flare Barriers to discharge for this patient who had been independent prior to this are for her to be modified independent to supervision for ADLs and mobility skills prior to discharge home with [family], so as to lessen the burden of the caregivers. Risks for this patient include: 1. Fall 2. Fracture 3. DVT 4. Pulmonary embolism 5. Poorly controlled DM 6. Skin breakdown 7. Contractures 8. Poorly controlled pain 9. Recalcitrant Urinary retention 10. UTI 11. Respiratory infection 12. Aspiration 13. Poorly controlled HTN Estimated Length of Stay: 21 days Prognosis: Rehab prognosis appears good for goal of discharge home with spouse modified independent to supervision for ADLs and mobility skills. Date Identified: Oct 04, 2018 Time Identified: 10:15 Action Plan to Resolve CSMI: Transfer meds agian reviewed General: Alert, Oriented X3, Cooperative, No Acute Distress HEENT: Atraumatic, PERRLA, EOMI, Mucous Memb Moist/[place], Other (dysphagia) Neck: Supple, No JVD Lungs: Clear to Auscultation Heart: Regular Rate Abdomen: Normal Bowel Sounds, Soft, No Tenderness Extremities: No Edema Skin: No Rashes, No Breakdown, Other (Carson to DD) Neuro: Other (Strength 2 to 2+/5 Ble except Rt dorsiflexion 1/5 Weakness in both upper limbs as well) SHARA MITCHELL MD Oct 04, 2018 10:18
--- NOTE | 2018-10-04 10:34 | ST Cognitive Linguistic Eval ---
Speech Evaluation-General Medical Diagnosis MS Onset Date: Sep 23, 2018 Therapy Diagnosis Therapy Diagnosis: Cognitive-communication Precautions Precautions: Fall, Aspiration Precautions/Isolations: Aspiration, Fall Prevention, Standard Precautions, Pressure Ulcer Medical History Pertinent Medical History: Atrial Fib, CVA (2010), DM, HTN, Neuropathy Reviewed History: Yes Social History Current Living Status: Spouse Speech PLF-Current Status Prior Level of Function Patient lived at home with her and was independent for all of her daily needs. Subjective Patient was pleasant and cooperative. She was noted to tire easily during simple conversational tasks, Language Eval: Auditory Comprehends Simple Yes/No Ques: Mild Indent/Objects Multiple [place]: Mild Follows 1-Step Commands: Mild Follows General Conversations: Mild Language Eval: Verbal Language Completes Spontaneous Greeting: Mild Produces Auto, Serial Info: Mild Imitates Simple Words/Phrases: Mild Word Finding: Moderate Requests Basic Needs: Mild States Basic Personal Info: Mild Expresses Complex Ideas: Moderate Cognitive Patient Orientation Patient is oriented to self and place. Objective Cognitive Domain Attention: Mild Memory: Moderate Problem Solving: Moderate Executive Functions: Moderate Patient requires processing time for all requests, even the simple ones. Objective Formal/Standardized Tests Witieshael's Yes-No Reliability Test (WYNRT) Results Patient scored 22/35 with moderate verbal repetitions. Patient required processing time through out the entire test. Oral Motor/Speech Production Speech is slightly delayed due to decreased OM function and overall weakness. Impression Patient exhibits decreased cognitive-communication function. She is able to make her needs known effectively. Her vocal volume is moderately low, probable cause due to overall weakness. Communication/Social Cognition Comprehension: 4 Expression: 4 Social Interaction: 3 Problem Solvin Memory: 3 Speech Patient Assess Expression of Ideas/Wants: Frequently (2) Understanding Verbal Content: Usually Understands (3) Brief Interview-Mental Status: Yes Repetition of Three Words: Two (2) Temporal Orientation: Year: Correct (3) Temporal Orientation: Month: Accurate within 5 days(2) Temporal Orientation: Day: Correct (1) Recall : Wear to say "Sock": Yes,after cueing (1) Recall : Color: Yes, after cueing (1) Recall : Bed: Yes,after cueing (1) Memory/Recall Ability: Current season, That he or she is in a hsp/hsp unit Speech Short Term Goals Short Term Goals Short Term Goals 1) Patient will use appropriate linguistic forms to communicate in everyday situations, with 90% or greater accuracy. 2) Patient will identify functions of common items, with 90% or greater accuracy. 3) Patient will express her wants/needs effectively with 90% accuracy. Speech Retirement Goals Retirement Goals Patient will be able to effectively communicate within her immediate living environment at 90%. Speech-Plan Patient/Family Goals Patient/Family Goals: Patient will return to her home with her as soon as she is medically stable. Treatment Plan Speech Therapy Treatment Plan: Continue Plan of Care Patient exhibits decreased cognitive-communication which skilled ST is recommended for treatment. Treatment Duration: Oct 04, 2018 Frequency: 5 times per week Estimated Hrs Per Day: .5 hour per day Rehab Potential: Fair Barriers to Learning: Patient's medical status. Pt/Family Agrees to Plan: Yes Safety Risks/Education Teaching Recipient: Patient Teaching Methods: Discussion Response to Teaching: Verbalize Understanding Education Topics Provided: Safety within her room. Time Speech Therapy Time In: 08:30 Speech Therapy Time Out: 09:00 Total Billed Time: 30 Billed Treatment Time 1, HAILE Butler Oct 04, 2018 10:34
--- NOTE | 2018-10-04 11:26 | Physical Therapy Daily Note ---
PT Daily Note-Current Subjective Patient in bed pre tx, agrees to PT, has 5/10 low back pain. Will be co- treating with OT this morning due to poor patient endurance, safety awareness, balance, general mobility Appearance Patient in bed post tx with nurse call, phone, tray, all needs met. Mental Status Patient Orientation: Person, Confused, Place Transfers Therapy Code Descriptions/Definitions Functional [place] Measure: 0=Not Assessed/NA 4=Minimal Assistance 1=Total Assistance 5=Supervision or Setup 2=Maximal Assistance 6=Modified [place] 3=Moderate Assistance 7=Complete [place] Therapy Quality Codes: 6 Independent with activity with or without an assistive device 5 Patient requires set up or clean up by helper. Patient completes activity by themselves 4 Supervision or touching assist (CGA). [place] provide cues , steadying assist 3 The helper provides less than half the effort to complete the activity 2 The helper provides more than half the effort to complete the activity 1 Dependent. The helper does all the effort to complete an activity 7 Patient refused to complete or attempt activity 9 The patient did not perform the activity before the current illness or injury 88 Not attempted due to Medical conditions or safety concerns Transfers (B, C, W/C) (FIM): 3 Scootin Rollin Supine to/from Sit: 3 Sit to/from Stand: 3 Bed to/from Chair: 3 Patient needs cues for positioning and hand placement during every transfer. She seems to not be able to retain information about safety and positioning. Weight Bearing Right Lower Extremity: Right Full Weight Bearing Left Lower Extremity: Left Full Weight Bearing Gait Training Gait (FIM): 1 Distance: 3' Gait Level of Assist: 3 Gait Persons Needed: 1 Gait Assistive Device: Handheld Assist Patient was able to ambulate just a few feet during transfer with therapist in front of patient, giving cues for stepping and safety. Exercises Seated Therapy Exercises: Ankle pumps, Long arc quads, Hip abd/add Seated Reps: 15 standing x3 for about 1-2 minutes each time Treatments bed mobility and transfers, ambulation, functional strengthening/AROM, dressing , bathing, toileting Assessment Current Status: Poor Progress Patient had increased fatigue with treatment and the further along she got the less she participated and seemed to be unaware of her surroundings, not follow directions, etc. PT Short Term Goals Short Term Goals Time Frame: Oct 17, 2018 Transfers (B,C,W/C) (FIM): 4 Gait (FIM): 2 Distance (FIM): 4=211-55 ft Gait Distance Comment: 50 ft Gait Level of Assist: 4 Gait Assistive Device: FWW Wheelchair Distance: 0 feet Stairs (FIM): 2 # of Steps: 1 PT Assisted Goals Account Manager Goals PT Account Manager Goals Time Frame: Oct 31, 2018 Transfers (B,C,W/C) (FIM): 6 Sit to Lying (QC): 6 Lying-Sitting on Side/Bed(QC): 6 Sit to Stand (QC): 6 Rollin Roll Left to Right (QC): 6 Chair/Xgl-hq-Cbyur Xfer(QC): 6 Car Transfer (QC): 5 Does the Patient Walk: No and Walking Goal IS indicated Gait (FIM): 6 Gait distance (FIM): 3=150 ft Walk 10 feet (QC): 6 Walk 10ft-Uneven Surface(QC): 5 Walk 50ft with 2 Turns (QC): 6 Walk 150 ft (QC): 6 Gait Level of Assist: 6 Gait Assistive Device: FWW Does the Pt use WC or Scooter?: Yes Wheelchair (FIM): 6 Wheelchair distance (FIM): 3=150 ft Wheel 50 feet with 2 turns (QC: 6 Stairs (FIM): 5 # of Steps: 4 1 Step (curb) (QC): 6 4 Steps (QC): 6 12 Steps (QC): 88 Picking up an Object (QC): 4 PT Plan Problem List Problem List: Activity Tolerance, Functional Strength, Safety, Balance, Gait, Transfer, Bed Mobility, ROM Treatment/Plan Treatment Plan: Continue Plan of Care Treatment Plan: Bed Mobility, Education, Functional Activity Shiv, Functional Strength, Group Therapy, Gait, Safety, Therapeutic Exercise, Transfers Treatment Duration: Oct 31, 2018 Frequency: At least 5 of 7 days/Wk (IRF) Estimated Hrs Per Day: 1.5 hours per day Patient and/or Family Agrees t: Yes Safety Risks/Education Patient Education: Gait Training, Transfer Techniques, Correct Positioning, Safety Issues Teaching Recipient: Patient Teaching Methods: Demonstration, Discussion Response to Teaching: Reinforcement Needed Time/GCodes Time In: 0900 Time Out: 1015 Total Billed Treatment Time: 75 Total Billed Treatment 1 visit EX 15' FA 60' Co-treated for 75 minutes. PT worked on bed mobility and transfers, ambulation , LE exercises, standing, balance during dressing and bathing and grooming. OT worked on dressing, bathing, grooming, UE exercises. PEBBLES BERRY PT Oct 04, 2018 11:26
--- NOTE | 2018-10-04 12:04 | PM&R Progress Note ---
Subjective This was a face to face visit with the patient. Date Seen by Provider: Oct 04, 2018 Time Seen by Provider: 11:45 Subjective/Events-last exam Patient was seen in her room this AM Patient appears quite fatigued Patients spouse brought in home vitamins for patient discussed with RN for OK Patient mod assist for transfers Date Identified: Oct 04, 2018 Time Identified: 11:45 Medication Intervention: Patients home vitamins okd Review of Systems Genitourinary: Retention Neurological: Weakness Objective Physician Exam Last Set of Vital Signs Vital Signs Date Time Temp Pulse Resp B/P (MAP) Pulse Ox O2 Delivery O2 Flow Rate FiO2 10/04/18 08:01 84 146/85 (105) 10/04/18 08:00 Room Air 10/04/18 05:09 98.6 16 99 Capillary Refill : I&O Intake and Output 10/04/18 00:00 Intake Total 200 ml Output Total 600 ml Balance -400 ml Intake Oral 200 ml Output Urine Total 600 ml Daily Weight Change Unsure General: Alert, Oriented X3, Cooperative, No Acute Distress HEENT: Atraumatic, PERRLA, EOMI, Mucous Memb Moist/[place], Other (dysphagia) Neck: Supple, No JVD Lungs: Clear to Auscultation Heart: Regular Rate Abdomen: Normal Bowel Sounds, Soft, No Tenderness Extremities: No Edema Skin: No Rashes, No Breakdown, Other ([place] to DD) Neuro: Other (Strength 2 to 2+/5 Ble except Rt dorsiflexion 1/5 Weakness in both upper limbs as well) Results Lab Data Laboratory Tests 10/03/18 15:24: Glucometer 112H 10/03/18 20:17: Glucometer 157H 10/04/18 05:10: Glucometer 59*L 10/04/18 05:44: Glucometer 85 10/04/18 10:49: Glucometer 220H Assessment/Plan Assessment and Plan MS exacerbations/p course of steroids Dysphagia on modified diet Urinary retention managed with [place] catheter at this time HTN controlled with meds DM followed by endo in [place] HLP followed by Endo in [place] Anxiety Plan Continue PT/OT/ST Team Conference tomorrow F/U re possible TOV Co-Morbidities that are continuing to impact the rehab process: (include details ) SHARA MITCHELL MD Oct 04, 2018 12:04
[2018-10-04 12:17] VITALS: BP 137/85
[2018-10-04] MEDS: LOSARTAN 50 MG (COZAAR) TAB PO SCH (12:18)
[2018-10-04] MEDS: ASCORBIC ACID (VIT C) 500 MG TABLET PO SCH (12:18)
--- NOTE | 2018-10-04 13:10 | Occupational Ther Daily Note ---
OT Current Status-Daily Note Subjective Pt agrees to treatment this am, reports 5/10 low back pain. Mental Status/Objective Therapy Code Descriptions/Definitions Functional [place] Measure: 0=Not Assessed/NA 4=Minimal Assistance 1=Total Assistance 5=Supervision or Setup 2=Maximal Assistance 6=Modified [place] 3=Moderate Assistance 7=Complete [place] ADL-Treatment Pt transferring to [facility] from [facility] with nursing when therapist arrives. RN reports pt was dependent for toileting. Co-treat with PT secondary to impaired strength , mobility, activity tolerance, and balance. Sponge bath completed seated EOB. Pt able to wash face and partially wash arms with increased time and multiple skilled verbal cues. Pt has difficulty following instructions for task completion. Pt required assist to thread bilateral UE into sleeves. Initiates movement to pull shirt over head, but requires assist to complete task. Assist to thread catheter and bilateral LE through pant leg. Stood with max assist for pant hike. Dependent to doff/don socks. Pt performed stand pivot transfer to w/ c. To restroom via w/c. Grooming tasks completed seated at sink. Pt attempted to comb right side with brush, but unable to reach. Required max assist to comb hair. Pt was given a toothbrush with toothpaste. Pt able to brush teeth using right hand with increased time, but unsure how thorough this was. Pt has difficulty with initiation tasks, requires cues for sequencing, task completion , and safety. Therapy Code Descriptions/Definitions Functional [place] Measure: 0=Not Assessed/NA 4=Minimal Assistance 1=Total Assistance 5=Supervision or Setup 2=Maximal Assistance 6=Modified [place] 3=Moderate Assistance 7=Complete [place] Therapy Quality Codes: 6 Independent with activity with or without an assistive device 5 Patient requires set up or clean up by helper. Patient completes activity by themselves 4 Supervision or touching assist (CGA). [place] provide cues , steadying assist 3 The helper provides less than half the effort to complete the activity 2 The helper provides more than half the effort to complete the activity 1 Dependent. The helper does all the effort to complete an activity 7 Patient refused to complete or attempt activity 9 The patient did not perform the activity before the current illness or injury 88 Not attempted due to Medical conditions or safety concerns Grooming (FIM): 2 Oral Hygiene (QC): 2 Bathing (FIM): 1 Shower/Bathe Self (QC): 1 Upper Body (FIM): 2 Upper Body Dressing (QC): 2 Lower Body Dressing (FIM): 1 Lower Body Dressing (QC): 1 On/Off Footwear (QC): 1 Toileting (FIM): 1 (per RN report) Toileting Hygiene (QC): 1 Toilet/Commode Transfer (FIM): 2 Toilet Transfer (QC): 2 Other Treatment To therapy gym via w/c. Pt stood in parallel bars x3 trials for 1-2 minutes. Pt requires cues for sit to stand and for standing posture. Pt completed AAROM at shoulder and AROM for elbow and fingers. Pt has difficulty completing exercises and requires multiple cues to stay on task and complete activity. Pt returned to room and transferred to bed with all needs met after session. Co-treat with PT. OT focusing on ADL completion, UE management and exercises, sequencing, and safety. PT focusing on mobility, balance, and LE management. OT Short Term Goals Short Term Goals Time Frame: Oct 17, 2018 Eating(FIM): 3 Grooming(FIM): 3 Bathing(FIM): 3 Upper Body Dressing(FIM): 4 Lower Body Dressing(FIM): 3 Toileting(FIM): 3 Transfers (B,C,W/C) (FIM): 4 Toilet/Commode Transfer(FIM): 4 Shower Transfer(FIM): 4 Additional Short Term Goals: 1-Demonstrate ADL Tasks, 2-Verbalize Understanding , 3-ImproveStrength/Shiv 1=Demonstrate adherence to instructed precautions during ADL tasks. 2=Patient will verbalize/demonstrate understanding of assistive devices/ modifications for ADL. 3=Patient will improve strength/tolerance for activity to enable patient to perform ADL's. OT Long-Term Goals Assistant Front Desk Manager Goals Time Frame: Oct 31, 2018 Eating (FIM): 6 Eating (QC): 6 Groomin Oral Hygiene (QC): 5 Bathing(FIM): 5 Shower/Bathe Self (QC): 4 Upper Body Dressing(FIM): 5 Upper Body Dressing (QC): 5 Lower Body Dressing(FIM): 5 Lower Body Dressing (QC): 4 On/Off Footwear (QC): 4 Toileting(FIM): 6 Toileting Hygiene (QC): 6 Transfers (B,C,W/C) (FIM): 6 Toilet/Commode Transfer(FIM): 6 Toilet/Commode Transfer (QC): 6 Shower Transfer(FIM): 5 Additional Goals: 1-Demonstrate ADL Tasks, 2-Verbalize Understanding, 3- ImproveStrength/Shiv 1=Demonstrate adherence to instructed precautions during ADL tasks. 2=Patient will verbalize/demonstrate understanding of assistive devices/ modifications for ADL. 3=Patient will improve strength/tolerance for activity to enable patient to perform ADL's. OT Education/Plan Discharge Recommendations Plan/Recommendations: Continue POC Treatment Plan/Plan of Care Patient would benefit from OT for education, treatment and training to promote independence in ADL's, mobility, safety and/or upper extremity function for ADL' s. Plan of Care: ADL Retraining, Caregiver Training, Cognitive Retraining, Functional Mobility, Group Exercise/Act as Ind, UE Funct Exercise/Act Treatment Duration: Oct 31, 2018 Frequency: At least 5 of 7 days/Wk (IRF) Estimated Hrs Per Day: 1.5 hours per day Agreement: Yes Rehab Potential: Fair Time/GCodes Start Time: 09:00 Stop Time: 10:15 Total Time Billed (hr/min): 75 Billed Treatment Time 1 visit, ADLx3(40minutes), FA(20minutes), EX(15minutes) TARIQ MCNULTY OT Oct 04, 2018 13:10
--- NOTE | 2018-10-04 13:22 | NUR ---
TREE TAPPING LABORER met with patient to complete initial assessment; however, patient was resting. TREE TAPPING LABORER obtained information from patients spouse. Patient resided with spouse in a one level home in [place]. The has two steps at the entrance, without hand rails. Patient admitted to ARU from [place] with new diagnosis of MS. 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 Per spouse, patient was independent with ambulation and self care until approx. one month ago. At this time, she became significantly weaker to the point of hospital admission the day after Thanksgiving. Spouse reports severe decline (physically and cognitively) in Dec 2017 due to extreme Magnesium deficit, but recovered fully after approx. 6 weeks. Primary contact identified as spouse, Clinton at [phone] and secondary contacts as daughter, Tova ([phone]) Clinton works citizen participation specialist at the [employer] [facility] [place] [facility]. Clinton states this employment has been flexible during [facility] hospitalization. PCP verified as Dr. Goldsmith. Clinton requests information regarding a Neurologist that travels from to [place]. TREE TAPPING LABORER will locate physician and attempt to arrange referral. Patient has MCR and BCBS and utilizes [facility] for local pharmacy needs. TREE TAPPING LABORER reviewed typical rehab length of stay and weekly team conferences with Clinton, he expressed no concerns. TREE TAPPING LABORER will follow for appropriate discharge needs.
[2018-10-04 16:58] VITALS: BP 138/77
[2018-10-04] MEDS: glyBURIDE 5 MG (MICRONASE) TAB PO SCH (17:05)
[2018-10-04] MEDS: ASPIRIN E.C. 81 MG (ECOTRIN) TAB PO SCH (20:59)
[2018-10-04] MEDS: ALPRAZolam 0.25 MG (XANAX) TAB PO PRN (20:59)
[2018-10-04] MEDS: METANX PO SCH (20:59)
[2018-10-04] MEDS ORDERED: PATIENT MAY USE OWN MED,SINGLE MED PO SCH (21:00)
[2018-10-04] MEDS: inSUlin DETERMIR 1 UNIT/0.01 ML (LEVEMIR) CHARGE PER UNIT SQ SCH (21:00)
[2018-10-04] MEDS ORDERED: LOPERAMIDE 2 MG (IMODIUM) CAP PO PRN (21:30)
[2018-10-05 05:02] VITALS: BP 120/76
[2018-10-05] MEDS: metFORMIN 500 MG (GLUCOPHAGE) TAB PO SCH ×2 (06:08→17:56)
[2018-10-05] MEDS: glyBURIDE 2.5 MG (MICRONASE) TAB PO SCH (06:08)
[2018-10-05] MEDS: MULTIVIT W/MINERALS TAB (THERAGRAN M) PO SCH (06:08)
[2018-10-05] MEDS: LACTOBACILLUS ACIDOPHILUS (PROBIOTIC) CAPSULE PO SCH (06:08)
[2018-10-05] MEDS: KCL 10 MEQ TAB (MICRO K) PO SCH (06:08)
--- NOTE | 2018-10-05 08:14 | PM&R Progress Note ---
Subjective This was a face to face visit with the patient. Date Seen by Provider: Oct 05, 2018 Time Seen by Provider: 07:40 Subjective/Events-last exam Patient was seen in her room this AM Patient Mod assist for transfers More alert this AM feeling better Review of Systems General: Fatigue HEENT: Other (dysphagia) Neurological: Weakness Objective Physician Exam Last Set of Vital Signs Vital Signs Date Time Temp Pulse Resp B/P (MAP) Pulse Ox O2 Delivery O2 Flow Rate FiO2 10/05/18 05:02 98.6 66 18 120/76 (91) 98 Room Air Capillary Refill : I&O Intake and Output 10/05/18 00:00 Intake Total 650 ml Output Total 1225 ml Balance -575 ml Intake Oral 650 ml Output Urine Total 1225 ml # Bowel Movements 5 General: Alert, Oriented X3, Cooperative, No Acute Distress HEENT: Atraumatic, PERRLA, EOMI, Mucous Memb Moist/[place], Other (dysphagia) Neck: Supple, No JVD Lungs: Clear to Auscultation Heart: Regular Rate Abdomen: Normal Bowel Sounds, Soft, No Tenderness Extremities: No Edema Skin: No Rashes, No Breakdown, Other ([place] to DD) Neuro: Other (Strength 2 to 2+/5 Ble except Rt dorsiflexion 1/5 Weakness in both upper limbs as well) Results Lab Data Laboratory Tests 10/03/18 15:24: Glucometer 112H 10/03/18 20:17: Glucometer 157H 10/04/18 05:10: Glucometer 59*L 10/04/18 05:44: Glucometer 85 10/04/18 10:49: Glucometer 220H 10/04/18 17:02: Glucometer 236H 10/04/18 20:58: Glucometer 210H 10/05/18 04:57: Glucometer 101 Microbiology 10/04/18 C. difficile GDH Antigen & Toxins - Final, Complete Assessment/Plan Assessment and Plan MS exacerbation s/p course of steroids OSH improving Dysphagia on modified diet Urinary retention managed with campa to have TOV soon hopefully HTN controlled with med DM followed by Endo in [place] HLP followed by Endo in [place] Anxiety Plan Continue PT/OT Team Conference later today See report for full functional update and POC and ELOS Co-Morbidities that are continuing to impact the rehab process: (include details ) SHARA MITCHELL MD Oct 05, 2018 08:14
[2018-10-05] MEDS: cloNIDine 0.1 MG (CATAPRES) TAB PO SCH ×3 (08:41→20:18)
[2018-10-05] MEDS: VITAMIN D3 1,000 UNITS (CHOLECALCIFEROL) TABLET PO SCH (08:41)
[2018-10-05] MEDS: CEPHALEXIN 250 MG (KEFLEX) CAP PO SCH ×2 (08:41→20:18)
[2018-10-05] MEDS: meTOprolol TARTRATE 50 MG (LOPRESSOR) TAB PO SCH ×2 (08:41→20:18)
[2018-10-05] MEDS: METANX PO SCH ×2 (08:42→20:18)
[2018-10-05] MEDS: FLUTICASONE NASAL SPRAY (FLONASE) 16 GM BTL NS SCH (08:42)
--- NOTE | 2018-10-05 09:00 | Physical Therapy Daily Note ---
PT Daily Note-Current Subjective PT and OT co-treated patient for todays therapy session due to poor patient strength, endurance, balance. Pt agreed to continue with co-treatment for morning session. Pain Numeric Pain Scale: 0-No Pain Location: No Pain Reported Mental Status Patient Orientation: [place], Normal For Age Transfers Therapy Code Descriptions/Definitions Functional [place] Measure: 0=Not Assessed/NA 4=Minimal Assistance 1=Total Assistance 5=Supervision or Setup 2=Maximal Assistance 6=Modified [place] 3=Moderate Assistance 7=Complete [place] Therapy Quality Codes: 6 Independent with activity with or without an assistive device 5 Patient requires set up or clean up by helper. Patient completes activity by themselves 4 Supervision or touching assist (CGA). [place] provide cues , steadying assist 3 The helper provides less than half the effort to complete the activity 2 The helper provides more than half the effort to complete the activity 1 Dependent. The helper does all the effort to complete an activity 7 Patient refused to complete or attempt activity 9 The patient did not perform the activity before the current illness or injury 88 Not attempted due to Medical conditions or safety concerns Transfers (B, C, W/C) (FIM): 3 Scootin Rollin Supine to/from Sit: 3 Sit to/from Stand: 3 Weight Bearing Right Lower Extremity: Right Full Weight Bearing Left Lower Extremity: Left Full Weight Bearing Gait Training Does the Patient Walk?: No and Walking Goal NOT indicated Exercises Standing: Sit to Stand, Weight shifts Standing Reps: 5 Assessment Current Status: Good Progress Patient cotreated by PT and OT during therapy session. Pt required Mod A when transferring to shower bench and when coming to a stand when getting dressed. Patient was wheeled to therapy gym where she practiced sit to airline lounge receptionist parallel bars. Pt required Mod A when coming to a stand but was able to maintain a standing position for a minute with arm support in parallel bars. Patient able to complete exercise three times with weight shifting involved throughout standing exercises. Carmen needs cueing throughout therapy but has shown overall improvement since last therapy session. PT Short Term Goals Short Term Goals Time Frame: Oct 17, 2018 Transfers (B,C,W/C) (FIM): 4 Gait (FIM): 2 Distance (FIM): 4=617-79 ft Gait Distance Comment: 50 ft Gait Level of Assist: 4 Gait Assistive Device: FWW Wheelchair Distance: 0 feet Stairs (FIM): 2 # of Steps: 1 PT Halfway Goals Sand Mixer Machine Goals PT Sand Mixer Machine Goals Time Frame: Oct 31, 2018 Transfers (B,C,W/C) (FIM): 6 Sit to Lying (QC): 6 Lying-Sitting on Side/Bed(QC): 6 Sit to Stand (QC): 6 Rollin Roll Left to Right (QC): 6 Chair/Vvs-jr-Rhvtv Xfer(QC): 6 Car Transfer (QC): 5 Does the Patient Walk: No and Walking Goal IS indicated Gait (FIM): 6 Gait distance (FIM): 3=150 ft Walk 10 feet (QC): 6 Walk 10ft-Uneven Surface(QC): 5 Walk 50ft with 2 Turns (QC): 6 Walk 150 ft (QC): 6 Gait Level of Assist: 6 Gait Assistive Device: FWW Does the Pt use WC or Scooter?: Yes Wheelchair (FIM): 6 Wheelchair distance (FIM): 3=150 ft Wheel 50 feet with 2 turns (QC: 6 Stairs (FIM): 5 # of Steps: 4 1 Step (curb) (QC): 6 4 Steps (QC): 6 12 Steps (QC): 88 Picking up an Object (QC): 4 PT Plan Problem List Problem List: Activity Tolerance, Functional Strength, Safety, Balance, Gait, Transfer, Bed Mobility, ROM Treatment/Plan Treatment Plan: Continue Plan of Care Treatment Plan: Bed Mobility, Education, Functional Activity Shiv, Functional Strength, Group Therapy, Gait, Safety, Therapeutic Exercise, Transfers Treatment Duration: Oct 31, 2018 Frequency: At least 5 of 7 days/Wk (IRF) Estimated Hrs Per Day: 1.5 hours per day Patient and/or Family Agrees t: Yes Safety Risks/Education Patient Education: Transfer Techniques, Correct Positioning, Safety Issues Teaching Recipient: Patient Teaching Methods: Demonstration, Discussion Response to Teaching: Reinforcement Needed Time/GCodes Time In: 800 Time Out: 900 Total Billed Treatment Time: 60 Total Billed Treatment 1 Visit FA x 2 - 30' EX x 2 - 30' Co-treated with OT for the whole 60 min. PT worked on exercises in parallel bars, transfers, balance. OT worked on bathing, UE positioning. PEBBLES BERRY PT Oct 05, 2018 09:00
--- NOTE | 2018-10-05 11:01 | Occupational Ther Daily Note ---
OT Current Status-Daily Note Subjective Pt alert, lying in bed. Nrsg stated that pt is better and pt stated that she feels stronger today. Pt does required encouragement to work through fatigue to increase activity tolerance. Pt is able to speak for longer periods of time. Mental Status/Objective Patient Orientation: Person, Place, Time, Situation Therapy Code Descriptions/Definitions Functional [place] Measure: 0=Not Assessed/NA 4=Minimal Assistance 1=Total Assistance 5=Supervision or Setup 2=Maximal Assistance 6=Modified [place] 3=Moderate Assistance 7=Complete [place] Attachments: Carson Catheter ADL-Treatment Co-treat with PT secondary to impaired strength, mobility, activity tolerance, and balance. PT worked on transfers, LE strengthening and standing. OT worked on ADLs and functional tasks. Mod A supine to sitting EOB. SBA sitting EOB. Min A for SPT from surface to surface. Mod A transfer into shower, pt unable to shuffle feet forward in transfer. Pt able to sit on shower bench and wash upper legs and part of upper body though inefficiently. BLOUNT rewashed areas for cleanliness. Pt held onto grabbar and leaned to side to cleanse buttocks. Max A to don/doff upper body clothing due to decreased activity tolerance and weakness. Assist x2 for lower body dressing, assist to thread LE's into pants then PT assisted to stand while BLOUNT hiked pants over hips. Max A to don/doff footwear. Therapy Code Descriptions/Definitions Functional [place] Measure: 0=Not Assessed/NA 4=Minimal Assistance 1=Total Assistance 5=Supervision or Setup 2=Maximal Assistance 6=Modified [place] 3=Moderate Assistance 7=Complete [place] Therapy Quality Codes: 6 Independent with activity with or without an assistive device 5 Patient requires set up or clean up by helper. Patient completes activity by themselves 4 Supervision or touching assist (CGA). [place] provide cues , steadying assist 3 The helper provides less than half the effort to complete the activity 2 The helper provides more than half the effort to complete the activity 1 Dependent. The helper does all the effort to complete an activity 7 Patient refused to complete or attempt activity 9 The patient did not perform the activity before the current illness or injury 88 Not attempted due to Medical conditions or safety concerns Eating (FIM): 5 (After set up, pt able to feed self. Does need built up handles to make using utensils easier.) Eating (QC): 5 Grooming (FIM): 4 (Set up then pt able to complete oral care. Assist to brush hair.) Oral Hygiene (QC): 5 Bathing (FIM): 2 Bathing Location: L Arm, R Arm, L Upper Leg, R Upper Leg, Abdomen, Perineal Area Shower/Bathe Self (QC): 2 Upper Body (FIM): 2 Upper Body Dressing (QC): 2 Lower Body Dressing (FIM): 1 Lower Body Dressing (QC): 1 On/Off Footwear (QC): 2 Shower Transfer(FIM): 2 Other Treatment Pt transported via w/c to therapy gym. PT worked on standing, stood 3x's approximately 1 min each time, see PT notes. Pt c/o fatigue. After therapy, pt lying in bed with call light/phone in reach. All needs met in room. OT Short Term Goals Short Term Goals Time Frame: Oct 17, 2018 Eating(FIM): 3 Grooming(FIM): 3 Bathing(FIM): 3 Upper Body Dressing(FIM): 4 Lower Body Dressing(FIM): 3 Toileting(FIM): 3 Transfers (B,C,W/C) (FIM): 4 Toilet/Commode Transfer(FIM): 4 Shower Transfer(FIM): 4 Additional Short Term Goals: 1-Demonstrate ADL Tasks, 2-Verbalize Understanding , 3-ImproveStrength/Shiv 1=Demonstrate adherence to instructed precautions during ADL tasks. 2=Patient will verbalize/demonstrate understanding of assistive devices/ modifications for ADL. 3=Patient will improve strength/tolerance for activity to enable patient to perform ADL's. OT Residential Goals Drier Feeder Goals Time Frame: Oct 31, 2018 Eating (FIM): 6 Eating (QC): 6 Groomin Oral Hygiene (QC): 5 Bathing(FIM): 5 Shower/Bathe Self (QC): 4 Upper Body Dressing(FIM): 5 Upper Body Dressing (QC): 5 Lower Body Dressing(FIM): 5 Lower Body Dressing (QC): 4 On/Off Footwear (QC): 4 Toileting(FIM): 6 Toileting Hygiene (QC): 6 Transfers (B,C,W/C) (FIM): 6 Toilet/Commode Transfer(FIM): 6 Toilet/Commode Transfer (QC): 6 Shower Transfer(FIM): 5 Additional Goals: 1-Demonstrate ADL Tasks, 2-Verbalize Understanding, 3- ImproveStrength/Shiv 1=Demonstrate adherence to instructed precautions during ADL tasks. 2=Patient will verbalize/demonstrate understanding of assistive devices/ modifications for ADL. 3=Patient will improve strength/tolerance for activity to enable patient to perform ADL's. OT Education/Plan Discharge Recommendations Plan/Recommendations: Continue POC Treatment Plan/Plan of Care Patient would benefit from OT for education, treatment and training to promote independence in ADL's, mobility, safety and/or upper extremity function for ADL' s. Plan of Care: ADL Retraining, Caregiver Training, Cognitive Retraining, Functional Mobility, Group Exercise/Act as Ind, UE Funct Exercise/Act Treatment Duration: Oct 31, 2018 Frequency: At least 5 of 7 days/Wk (IRF) Estimated Hrs Per Day: 1.5 hours per day Agreement: Yes Rehab Potential: Fair Time/GCodes Start Time: 07:30 Stop Time: 09:00 Total Time Billed (hr/min): 90 Billed Treatment Time 1 visit-ADL 4 (60 min) FA 2 (30 min) Co-treat 8:00-9:00 (60 min) with PT, individual 7:30-8:00 (30 min) JORGE TERRY Oct 05, 2018 11:01
--- NOTE | 2018-10-05 11:11 | Physical Therapy Daily Note ---
PT Daily Note-Current Subjective Pt awake in bed watching tv when PT arrived. Pt agreed to perform exercises for PT. Pain Numeric Pain Scale: 0-No Pain Location: No Pain Reported Mental Status Patient Orientation: [place], Normal For Age Attachments: Carson Catheter Transfers Therapy Code Descriptions/Definitions Functional [place] Measure: 0=Not Assessed/NA 4=Minimal Assistance 1=Total Assistance 5=Supervision or Setup 2=Maximal Assistance 6=Modified [place] 3=Moderate Assistance 7=Complete [place] Therapy Quality Codes: 6 Independent with activity with or without an assistive device 5 Patient requires set up or clean up by helper. Patient completes activity by themselves 4 Supervision or touching assist (CGA). [place] provide cues , steadying assist 3 The helper provides less than half the effort to complete the activity 2 The helper provides more than half the effort to complete the activity 1 Dependent. The helper does all the effort to complete an activity 7 Patient refused to complete or attempt activity 9 The patient did not perform the activity before the current illness or injury 88 Not attempted due to Medical conditions or safety concerns Weight Bearing Right Lower Extremity: Right Full Weight Bearing Left Lower Extremity: Left Full Weight Bearing Exercises Supine Ex: Ankle pumps, Heel Slides, Knee to chest, Hip abd/add Supine Reps: 20 Assessment Current Status: Fair Progress Patient was able to perform supine exercises with AAROM. Pt required assistance with exercises due to her still experiencing fatigue from prior therapy in the morning. Patient will continue therapy to improve overall strength and endurance for functional activities. PT Short Term Goals Short Term Goals Time Frame: Oct 17, 2018 Transfers (B,C,W/C) (FIM): 4 Gait (FIM): 2 Distance (FIM): 9=845-89 ft Gait Distance Comment: 50 ft Gait Level of Assist: 4 Gait Assistive Device: FWW Wheelchair Distance: 0 feet Stairs (FIM): 2 # of Steps: 1 PT Halfway Goals Water And Fire Technician Goals PT Water And Fire Technician Goals Time Frame: Oct 31, 2018 Transfers (B,C,W/C) (FIM): 6 Sit to Lying (QC): 6 Lying-Sitting on Side/Bed(QC): 6 Sit to Stand (QC): 6 Rollin Roll Left to Right (QC): 6 Chair/[id number] Xfer(QC): 6 Car Transfer (QC): 5 Does the Patient Walk: No and Walking Goal IS indicated Gait (FIM): 6 Gait distance (FIM): 3=150 ft Walk 10 feet (QC): 6 Walk 10ft-Uneven Surface(QC): 5 Walk 50ft with 2 Turns (QC): 6 Walk 150 ft (QC): 6 Gait Level of Assist: 6 Gait Assistive Device: FWW Does the Pt use WC or Scooter?: Yes Wheelchair (FIM): 6 Wheelchair distance (FIM): 3=150 ft Wheel 50 feet with 2 turns (QC: 6 Stairs (FIM): 5 # of Steps: 4 1 Step (curb) (QC): 6 4 Steps (QC): 6 12 Steps (QC): 88 Picking up an Object (QC): 4 PT Plan Problem List Problem List: Activity Tolerance, Functional Strength, Safety, Balance, Gait, Transfer, Bed Mobility Treatment/Plan Treatment Plan: Continue Plan of Care Treatment Plan: Bed Mobility, Education, Functional Activity Shiv, Functional Strength, Group Therapy, Gait, Safety, Therapeutic Exercise, Transfers Treatment Duration: Oct 31, 2018 Frequency: At least 5 of 7 days/Wk (IRF) Estimated Hrs Per Day: 1.5 hours per day Patient and/or Family Agrees t: Yes Safety Risks/Education Patient Education: Correct Positioning Teaching Recipient: Patient Teaching Methods: Demonstration, Discussion Response to Teaching: Reinforcement Needed Time/GCodes Time In: 0940 Time Out: 0955 Total Billed Treatment Time: 15 Total Billed Treatment 1 Visit EX - 15' PEBBLES BERRY PT Oct 05, 2018 11:10
--- NOTE | 2018-10-05 11:41 | Speech Therapy Daily Note ---
Speech Daily Progress Note Subjective Date Seen by Provider: Oct 05, 2018 Time Seen by Provider: 00:30 Patient was awake and more alert today. Objective Patient completed simple memory tasks related to her daily needs with 75% accuracy given min to mod verbal cues. Treatment Plan Continue Plan of Care Communication Comprehension: 4 Expression: 4 Social Cognition Social Interaction: 3 Problem Solvin Memory: 3 Speech Short Term Goals Short Term Goals Short Term Goals 1) Patient will use appropriate linguistic forms to communicate in everyday situations, with 90% or greater accuracy. 2) Patient will identify functions of common items, with 90% or greater accuracy. 3) Patient will express her wants/needs effectively with 90% accuracy. Speech Detention Goals Detention Goals Patient will be able to effectively communicate within her immediate living environment at 90%. Speech-Plan Patient/Family Goals Patient/Family Goals: Patient plans to return home with her as soon as she is strong enough. Treatment Plan Speech Therapy Treatment Plan: Continue Plan of Care Patient appeared much more alert today and her voice was notably much stronger. Treatment Duration: Oct 04, 2018 Frequency: 5 times per week Estimated Hrs Per Day: .5 hour per day Rehab Potential: Fair Barriers to Learning: Weakness Pt/Family Agrees to Plan: Yes Safety Risks/Education Teaching Recipient: Patient Teaching Methods: Discussion Response to Teaching: Verbalize Understanding Education Topics Provided: Safety procedures within her room. Time Speech Therapy Time In: 09:00 Speech Therapy Time Out: 09:30 Total Billed Time: 30 Billed Treatment Time [address] Oct 05, 2018 11:41
[2018-10-05] MEDS ORDERED: PATIENT MAY USE OWN MED,SINGLE MED PO SCH (12:00)
[2018-10-05] MEDS: ASCORBIC ACID (VIT C) 500 MG TABLET PO SCH (12:15)
[2018-10-05] MEDS: LOSARTAN 50 MG (COZAAR) TAB PO SCH (12:15)
[2018-10-05] MEDS: MAGNESIUM 100 MG PO SCH (12:16)
--- NOTE | 2018-10-05 14:53 | NUR ---
Pt and her , Clinton are members of [facility] and describe positive relationships with their pastors, Antoine and Lety Breaux. They welcomed prayer and expressed appreciation for our visit.
--- NOTE | 2018-10-05 15:00 | NUR ---
ELECTRONICS WARFARE TECHNICIAN met with patient to review Team Conference Summary; however, patient was very somnolent. ELECTRONICS WARFARE TECHNICIAN then contacted patient's spouse, Clinton to review TCS. As patient just recently admitted, team has recommended that patient's progress be re-evaluated at next team conference on 10/12. Patient is currently requiring co-treatment as she cannot tolerate a full three hours, at this time. Due to new onset and diagnosis of MS, ELECTRONICS WARFARE TECHNICIAN recommended that patient have a consult due to history of anxiety and depression. Spouse is agreeable to this. ELECTRONICS WARFARE TECHNICIAN contacted to request consult. Jackie will consult tomorrow between 1-2. ELECTRONICS WARFARE TECHNICIAN will continue to follow progress.
--- NOTE | 2018-10-05 15:50 | NUR ---
Dr Mcneal notified of consult. Stated she familiar with pt and will see her tomorrow.
--- NOTE | 2018-10-05 16:43 | NUR ---
New order for thrush. Tongue white in color. See physicians order for further info
[2018-10-05 17:00] VITALS: BP 128/78
[2018-10-05] MEDS: NYSTATIN ORAL SUSP 5 ML UDC PO SCH ×2 (17:56→23:54)
[2018-10-05] MEDS: glyBURIDE 5 MG (MICRONASE) TAB PO SCH (17:56)
[2018-10-05] MEDS: ASPIRIN E.C. 81 MG (ECOTRIN) TAB PO SCH (20:17)
[2018-10-05] MEDS ORDERED: diphenhydrAMINE 25 MG TAB (BENADRYL) PO PRN (20:45)
[2018-10-05] MEDS ORDERED: ONDANSETRON 4 MG (ZOFRAN) ORAL DISSOLVE TAB PO PRN (20:45)
[2018-10-05] MEDS ORDERED: CALCIUM CARBONATE 500 MG (TUMS) TAB.CHEW PO PRN (20:45)
[2018-10-05] MEDS ORDERED: ACETAMINOPHEN 500 MG TAB (TYLENOL) PO PRN (20:45)
[2018-10-05] MEDS ORDERED: DOCUSATE SODIUM 100 MG (COLACE) CAP PO PRN (20:45)
--- NOTE | 2018-10-05 21:07 | Individualized Plan of Care ---
Individualized Plan of Care Rehab Nursing IPOC Order Admission Date Oct 03, 2018 at 13:40 Current Orders Orders Pt Evaluate/Treat Request (10/03/18 11:31) Request Ot Evaluate & Treat (10/03/18 11:31) Request Speech/Language Servic (10/03/18 11:31) Request For Cognitive Services (10/03/18 11:31) Request For Dysphagia Services (10/03/18 11:31) Admission Arrival Bed Request (10/03/18 13:40) Request Ot Evaluate & Treat (10/03/18 15:01) Ambulate 08,12,20 (10/03/18 15:24) Sequential Compression Device 08,20 (10/03/18 15:24) Dvt/Vte Risk - Notifiy Physici 08 (10/03/18 15:24) Patient Visit (10/03/18 ) Pt Eval Moderate Complexity (10/03/18 ) Functional Activities, Ea 15 (10/03/18 ) Automatic Tray (10/03/18 17:06) Dys1 Pureed (10/04/18 Breakfast) Lactobacillus Acidophilus Cap (Acidophil (10/04/18 07:00) Cephalexin Capsule (Keflex Capsule) (10/03/18 21:00) Potassium Chloride (Tablet) (Klor Con Ta (10/04/18 07:00) Metformin Tablet (Glucophage Tablet) (10/04/18 07:00) Insulin Determir (Per Unit) (Levemir (Pe (10/03/18 21:00) Glyburide Tablet (Micronase Tablet) (10/04/18 06:30) Therapeutic Multivitamin Tab (Vitamins, (10/04/18 07:00) Cholecalciferol Capsule/Tablet (Vitamin (10/04/18 09:00) Non-Formulary Medication (Non-Formulary (10/03/18 18:00) Non-Formulary Medication (Non-Formulary (10/03/18 18:00) Fluticasone Nasal Ward (Flonase Nasal S (10/04/18 09:00) Aspirin Enteric Coated Tablet (Ecotrin T (10/03/18 21:00) Glyburide Tablet (Micronase Tablet) (10/03/18 18:00) Ascorbic Acid Tablet (Vitamin C Tablet) (10/04/18 12:00) Accucheck Achs ACHS (10/03/18 18:22) Folic Acid Tablet (Folic Acid Tablet) (10/03/18 21:00) Mometasone 0.1% Cream (Elocon 0.1% Cream (10/03/18 18:45) Influenza Quad (5+Yoa) 2018- (Afluria (10/03/18 18:45) Admission-Acute Rehab Unit (10/03/18 19:53) Alprazolam Tablet (Xanax Tablet) (10/03/18 20:15) Metoprolol Tartrate (Ir) Tab (Lopressor (10/03/18 21:00) Losartan Tablet (Cozaar Tablet) (10/04/18 12:00) Clonidine Tablet (Catapres Tablet) (10/03/18 21:00) Ensure High Protein (10/04/18 Lunch) Patient Visit (10/04/18 ) Speech Sound Lang Comp (10/04/18 ) Patient Visit (10/04/18 ) Functional Activities, Ea 15 (10/04/18 ) Exercise Therap, Ea 15 Min (10/04/18 ) Non-Formulary Medication (Non-Formulary (10/05/18 12:00) Patient May Use Own Med,Single (Patient (10/05/18 12:00) Non-Formulary Medication (Non-Formulary (10/04/18 21:00) Patient May Use Own Med,Single (Patient (10/04/18 21:00) C Difficile Ag + Toxin A/B. (10/04/18 18:55) Loperamide Capsule (Imodium Capsule) (10/04/18 21:30) Patient Visit (10/05/18 ) Treat. Speech/Lang/Voice (10/05/18 ) Patient Visit (10/05/18 ) Exercise Therap, Ea 15 Min (10/05/18 ) Functional Activities, Ea 15 (10/05/18 ) Behavorial Health Consult (10/05/18 14:06) Nursing Communication (Order) (10/05/18 14:09) Consult Physician (10/05/18 15:27) Nystatin Oral Suspension (Mycostatin O (10/05/18 18:00) Acetaminophen Tablet (Tylenol Tablet) (10/05/18 20:45) Calcium Carbonate Chew Tablet (Antacid C (10/05/18 20:45) Diphenhydramine Tablet (Benadryl Tablet) (10/05/18 20:45) Docusate Sodium Capsule (Colace Capsule) (10/05/18 20:45) Ondansetron Oral Dissolve Tab (Zofran (10/05/18 20:45) Insulin Aspart (Novolog) (Novolog (Charg (10/05/18 21:00) Rehab Nursing Orders: Bladder Management, Bowel Management, Disease Management & Educaiton, DVT Prophylaxis, Fall Prevention, Fluid/Electrolyte/Nutrition Mgmt , Infection Prevention, Medication Management & Education, Management of Risks & Complications, Management of Skin Intergrity, Nutrition Management, Pain Management, Patient/Family Support, Safety Management, Swallow Precautions PT IPOC Problem List: Activity Tolerance, Functional Strength, Safety, Balance, Gait, Transfer, Bed Mobility Treatment Plan: Continue Plan of Care Bed Mobility, Education, Functional Activity Shiv, Functional Strength, Group Therapy, Gait, Safety, Therapeutic Exercise, Transfers Treatment Duration: Oct 31, 2018 Frequency: At least 5 of 7 days/Wk (IRF) Estimated Hrs Per Day: 1.5 hours per day OT IPOC Problems: Decreased Activ Tolerance, Decreased Safety Aware, Decreased UE Strength, Dependent Transfers, Impaired Bed Mobility, Impaired Cognition, Impaired Coordination, Impaired Funct Balance, Impaired I ADL's, Impaired Self- Care Skills, Restricted Funct UE ROM OT Treatment, Training and Edu: Yes Plan of Care: ADL Retraining, Caregiver Training, Cognitive Retraining, Functional Mobility, Group Exercise/Act as Ind, UE Funct Exercise/Act Treatment Duration: Oct 31, 2018 Frequency: At least 5 of 7 days/Wk (IRF) Estimated Hrs Per Day: 1.[address] IPOC Speech Therapy Treatment Plan: Continue Plan of Care Treatment Duration: Oct 17, 2018 Frequency: 5 times per week Estimated Hrs Per Day: .5 hour per day Asp Net Software Developer/Case Mgmt Asp Net Software Developer/Case Managemen: Discharge Planning, Patient/Family Counseling Dietitian/Auger Machine Offbearer Dietitian/Auger Machine Offbearer to monitor nutritional status and make changes and/or recommendations as needed and work with speech pathology on dietary upgrades as the occur. Neuropsychology/Psychology depression in patient with MS Physician IPOC Medical Issues being managed closely and that require the 24 hour availability of a physician: MS Dysphagia urinary retention HTN DM HLP Anxiety Loose stools [facility] code 03.1 Etiologic DX Active MS flare Medical Issues: Bowel/Bladder Function, DVT Prophylaxis, Falls Precautions, Fluid/Electrolyte/Nutrition Balance, Infection Protection, Pain Management, Other (List) (as per above) Brief Synthesis of Preadmission Screen, Post-Admission Evaluation, and Therapy Evaluations:67 yo female who developed sudden onset weakness and difficulty with swallow around thanksgiving with a resulting decline in functional Status Admitted to OSH and seen by neurologist who diagnosed MS and started Steroids Has urinary retention currently managed with Carson catheter.Had been Independent prior to this and has a supportive spouse PMH DM HTN HLP Medical Prognosis: Good Anticipated Length of Stay: 3 weeks Modified [place] to supervision for adls and mobility skills with improved Cognition and swallow and resolution of urinary retention Anticipated d/c Destination: Home with spouse and [facility] SHARA MITCHELL MD Oct 05, 2018 21:07
[2018-10-05] MEDS: inSUlin ASPART (NovoLOG) 1 UNIT/0.01 ML (CHARGE PER UNIT) SC SCH (21:23)
[2018-10-05] MEDS: ALPRAZolam 0.25 MG (XANAX) TAB PO PRN (21:23)
[2018-10-05] MEDS: inSUlin DETERMIR 1 UNIT/0.01 ML (LEVEMIR) CHARGE PER UNIT SQ SCH (21:24)
[2018-10-06 05:56] VITALS: BP 118/73
[2018-10-06] MEDS: MULTIVIT W/MINERALS TAB (THERAGRAN M) PO SCH (06:03)
[2018-10-06] MEDS: KCL 10 MEQ TAB (MICRO K) PO SCH (06:03)
[2018-10-06] MEDS: NYSTATIN ORAL SUSP 5 ML UDC PO SCH ×4 (06:03→23:58)
[2018-10-06] MEDS: inSUlin ASPART (NovoLOG) 1 UNIT/0.01 ML (CHARGE PER UNIT) SC SCH ×4 (06:03→21:51)
[2018-10-06] MEDS: LACTOBACILLUS ACIDOPHILUS (PROBIOTIC) CAPSULE PO SCH (06:03)
--- NOTE | 2018-10-06 07:51 | Occupational Ther Daily Note ---
OT Current Status-Daily Note Subjective Pt alert, lying in bed. Pt agrees to therapy. No c/o pain at this time. Pt stated that she thought her hands were not as swollen. Mental Status/Objective Patient Orientation: Person, Place, Time, Situation Therapy Code Descriptions/Definitions Functional [place] Measure: 0=Not Assessed/NA 4=Minimal Assistance 1=Total Assistance 5=Supervision or Setup 2=Maximal Assistance 6=Modified [place] 3=Moderate Assistance 7=Complete [place] Attachments: Carson Catheter ADL-Treatment Assist to roll to L side and stay on L side required. Max A to doff lower body clothing. Assist to cleanse buttocks in sidelying then with HOB raised pt complete lauri care. Max A to go from supine to EOB with HOB fully raised. Assist to thread pants onto feet and up LE's. Pt assisted hiking pants over hips, nrsg assist while BLOUNT stood pt. Pt transferred (shuffled danced) from bed to recliner moving feet. After set up, pt is able to use regular utensils to eat. Attempted to use built up handles, pt prefers regular utensils. Pt sitting in recliner eating breakfast after therapy. Call light/phone in reach. All needs met in room. Therapy Code Descriptions/Definitions Functional [place] Measure: 0=Not Assessed/NA 4=Minimal Assistance 1=Total Assistance 5=Supervision or Setup 2=Maximal Assistance 6=Modified [place] 3=Moderate Assistance 7=Complete [place] Therapy Quality Codes: 6 Independent with activity with or without an assistive device 5 Patient requires set up or clean up by helper. Patient completes activity by themselves 4 Supervision or touching assist (CGA). [place] provide cues , steadying assist 3 The helper provides less than half the effort to complete the activity 2 The helper provides more than half the effort to complete the activity 1 Dependent. The helper does all the effort to complete an activity 7 Patient refused to complete or attempt activity 9 The patient did not perform the activity before the current illness or injury 88 Not attempted due to Medical conditions or safety concerns Eating (FIM): 5 Eating (QC): 4 (Needs checked on due to decreased strength in hands and may spill liquids/foods.) Lower Body Dressing (FIM): 1 Lower Body Dressing (QC): 1 On/Off Footwear (QC): 2 Pt takes increased time due to decreased activity tolerance and decreased mobility. OT Short Term Goals Short Term Goals Time Frame: Oct 17, 2018 Eating(FIM): 3 Grooming(FIM): 3 Bathing(FIM): 3 Upper Body Dressing(FIM): 4 Lower Body Dressing(FIM): 3 Toileting(FIM): 3 Transfers (B,C,W/C) (FIM): 4 Toilet/Commode Transfer(FIM): 4 Shower Transfer(FIM): 4 Additional Short Term Goals: 1-Demonstrate ADL Tasks, 2-Verbalize Understanding , 3-ImproveStrength/Shiv 1=Demonstrate adherence to instructed precautions during ADL tasks. 2=Patient will verbalize/demonstrate understanding of assistive devices/ modifications for ADL. 3=Patient will improve strength/tolerance for activity to enable patient to perform ADL's. OT Assisted Goals Assisted Goals Time Frame: Oct 31, 2018 Eating (FIM): 6 Eating (QC): 6 Groomin Oral Hygiene (QC): 5 Bathing(FIM): 5 Shower/Bathe Self (QC): 4 Upper Body Dressing(FIM): 5 Upper Body Dressing (QC): 5 Lower Body Dressing(FIM): 5 Lower Body Dressing (QC): 4 On/Off Footwear (QC): 4 Toileting(FIM): 6 Toileting Hygiene (QC): 6 Transfers (B,C,W/C) (FIM): 6 Toilet/Commode Transfer(FIM): 6 Toilet/Commode Transfer (QC): 6 Shower Transfer(FIM): 5 Additional Goals: 1-Demonstrate ADL Tasks, 2-Verbalize Understanding, 3- ImproveStrength/Shiv 1=Demonstrate adherence to instructed precautions during ADL tasks. 2=Patient will verbalize/demonstrate understanding of assistive devices/ modifications for ADL. 3=Patient will improve strength/tolerance for activity to enable patient to perform ADL's. OT Education/Plan Discharge Recommendations Plan/Recommendations: Continue POC Treatment Plan/Plan of Care Patient would benefit from OT for education, treatment and training to promote independence in ADL's, mobility, safety and/or upper extremity function for ADL' s. Plan of Care: ADL Retraining, Caregiver Training, Cognitive Retraining, Functional Mobility, Group Exercise/Act as Ind, UE Funct Exercise/Act Treatment Duration: Oct 31, 2018 Frequency: At least 5 of 7 days/Wk (IRF) Estimated Hrs Per Day: 1.5 hours per day Agreement: Yes Rehab Potential: Fair Time/GCodes Start Time: 07:00 Stop Time: 08:00 Total Time Billed (hr/min): 60 Billed Treatment Time 1 visit-ADL 4 (60 min) JORGE TERRY Oct 06, 2018 07:50
[2018-10-06] MEDS: meTOprolol TARTRATE 50 MG (LOPRESSOR) TAB PO SCH ×2 (08:05→21:53)
[2018-10-06] MEDS: cloNIDine 0.1 MG (CATAPRES) TAB PO SCH ×3 (08:05→21:53)
[2018-10-06] MEDS: metFORMIN 500 MG (GLUCOPHAGE) TAB PO SCH ×2 (08:05→18:05)
[2018-10-06] MEDS: glyBURIDE 2.5 MG (MICRONASE) TAB PO SCH (08:05)
[2018-10-06] MEDS: VITAMIN D3 1,000 UNITS (CHOLECALCIFEROL) TABLET PO SCH (08:06)
[2018-10-06] MEDS: CEPHALEXIN 250 MG (KEFLEX) CAP PO SCH ×2 (08:06→21:51)
[2018-10-06] MEDS: METANX PO SCH ×2 (08:14→21:54)
[2018-10-06] MEDS: FLUTICASONE NASAL SPRAY (FLONASE) 16 GM BTL NS SCH (08:15)
[2018-10-06 08:20] VITALS: BP 129/79
--- NOTE | 2018-10-06 08:30 | NUR ---
FED SELF 1/2 BREAKFAST, THEN STATED "TOO TIRED TO DO ANYMORE". DID EAT WHEN WAS FED.
--- NOTE | 2018-10-06 11:10 | Occupational Ther Daily Note ---
OT Current Status-Daily Note Subjective Pt dozing in bed, woke easily to name. Pt agrees to therapy. No c/o pain at this time. Mental Status/Objective Patient Orientation: Person, Place, Time, Situation Therapy Code Descriptions/Definitions Functional [place] Measure: 0=Not Assessed/NA 4=Minimal Assistance 1=Total Assistance 5=Supervision or Setup 2=Maximal Assistance 6=Modified [place] 3=Moderate Assistance 7=Complete [place] Attachments: [place] Catheter ADL-Treatment Therapy Code Descriptions/Definitions Functional [place] Measure: 0=Not Assessed/NA 4=Minimal Assistance 1=Total Assistance 5=Supervision or Setup 2=Maximal Assistance 6=Modified [place] 3=Moderate Assistance 7=Complete [place] Therapy Quality Codes: 6 Independent with activity with or without an assistive device 5 Patient requires set up or clean up by helper. Patient completes activity by themselves 4 Supervision or touching assist (CGA). [place] provide cues , steadying assist 3 The helper provides less than half the effort to complete the activity 2 The helper provides more than half the effort to complete the activity 1 Dependent. The helper does all the effort to complete an activity 7 Patient refused to complete or attempt activity 9 The patient did not perform the activity before the current illness or injury 88 Not attempted due to Medical conditions or safety concerns Grooming (FIM): 4 (Sitting at sink, pt able to complete oral care. Brushes side of hair, requires assist for back. Pt is able to apply lotion to face.) Upper Body (FIM): 3 (Pt is assisting to doff/don shirt. Still weak and when shirt gets caught does not have the strength to continue to pull until clothing is free. Assist to snout puller head and down back. Pt pulls shirt down in front. ) Upper Body Dressing (QC): 3 Pt has difficulty with problem solving has demonstrated with donning shirt. Pt takes increased time due to decreased activity tolerance and slow mobility/ movements. Min A for SPT. After therapy, pt sitting in w/c with present in room. All needs met in room. OT Short Term Goals Short Term Goals Time Frame: Oct 17, 2018 Eating(FIM): 3 Grooming(FIM): 3 Bathing(FIM): 3 Upper Body Dressing(FIM): 4 Lower Body Dressing(FIM): 3 Toileting(FIM): 3 Transfers (B,C,W/C) (FIM): 4 Toilet/Commode Transfer(FIM): 4 Shower Transfer(FIM): 4 Additional Short Term Goals: 1-Demonstrate ADL Tasks, 2-Verbalize Understanding , 3-ImproveStrength/Shiv 1=Demonstrate adherence to instructed precautions during ADL tasks. 2=Patient will verbalize/demonstrate understanding of assistive devices/ modifications for ADL. 3=Patient will improve strength/tolerance for activity to enable patient to perform ADL's. OT Food Sales Clerk Goals Food Sales Clerk Goals Time Frame: Oct 31, 2018 Eating (FIM): 6 Eating (QC): 6 Groomin Oral Hygiene (QC): 5 Bathing(FIM): 5 Shower/Bathe Self (QC): 4 Upper Body Dressing(FIM): 5 Upper Body Dressing (QC): 5 Lower Body Dressing(FIM): 5 Lower Body Dressing (QC): 4 On/Off Footwear (QC): 4 Toileting(FIM): 6 Toileting Hygiene (QC): 6 Transfers (B,C,W/C) (FIM): 6 Toilet/Commode Transfer(FIM): 6 Toilet/Commode Transfer (QC): 6 Shower Transfer(FIM): 5 Additional Goals: 1-Demonstrate ADL Tasks, 2-Verbalize Understanding, 3- ImproveStrength/Shiv 1=Demonstrate adherence to instructed precautions during ADL tasks. 2=Patient will verbalize/demonstrate understanding of assistive devices/ modifications for ADL. 3=Patient will improve strength/tolerance for activity to enable patient to perform ADL's. OT Education/Plan Discharge Recommendations Plan/Recommendations: Continue POC Treatment Plan/Plan of Care Patient would benefit from OT for education, treatment and training to promote independence in ADL's, mobility, safety and/or upper extremity function for ADL' s. Plan of Care: ADL Retraining, Caregiver Training, Cognitive Retraining, Functional Mobility, Group Exercise/Act as Ind, UE Funct Exercise/Act Treatment Duration: Oct 31, 2018 Frequency: At least 5 of 7 days/Wk (IRF) Estimated Hrs Per Day: 1.5 hours per day Agreement: Yes Rehab Potential: Fair Time/GCodes Start Time: 10:30 Stop Time: 11:00 Total Time Billed (hr/min): 30 Billed Treatment Time 1 visit-ADL 2 (30 min) JORGE TERRY Oct 06, 2018 11:10
[2018-10-06] MEDS: MAGNESIUM 100 MG PO SCH (11:58)
[2018-10-06] MEDS: LOSARTAN 50 MG (COZAAR) TAB PO SCH (11:59)
--- NOTE | 2018-10-06 12:01 | Physical Therapy Daily Note ---
PT Daily Note-Current Subjective Patient in wheelchair pre tx, agrees to PT, no complaints of pain. Appearance Patient in bed post tx with nurse call, phone, tray, family in the room. Mental Status Patient Orientation: Person, Place Transfers Therapy Code Descriptions/Definitions Functional [place] Measure: 0=Not Assessed/NA 4=Minimal Assistance 1=Total Assistance 5=Supervision or Setup 2=Maximal Assistance 6=Modified [place] 3=Moderate Assistance 7=Complete [place] Therapy Quality Codes: 6 Independent with activity with or without an assistive device 5 Patient requires set up or clean up by helper. Patient completes activity by themselves 4 Supervision or touching assist (CGA). [place] provide cues , steadying assist 3 The helper provides less than half the effort to complete the activity 2 The helper provides more than half the effort to complete the activity 1 Dependent. The helper does all the effort to complete an activity 7 Patient refused to complete or attempt activity 9 The patient did not perform the activity before the current illness or injury 88 Not attempted due to Medical conditions or safety concerns Transfers (B, C, W/C) (FIM): 3 Scootin Rollin Supine to/from Sit: 3 Sit to/from Stand: 4 Bed to/from Chair: 3 Patient needs min assist to stand, mod assist for transfers, cues for hand placement and positioning during every transfers. Weight Bearing Right Lower Extremity: Right Full Weight Bearing Left Lower Extremity: Left Full Weight Bearing Gait Training Gait (FIM): 1 Distance: 5'x3 Gait Level of Assist: 3 Gait Persons Needed: 1 Gait Assistive Device: FWW Wheelchair follow. Patient needs assist guiding walker and to weight shift to the left side so she can advance her right foot. Exercises NuStep Minutes: 10 NuStep Workload: 2 Treatments bed mobility and transfers, ambulation, functional strengthening Assessment Current Status: Fair Progress Patient fatigues very quickly and needs multiple significant rest breaks to recover. PT Short Term Goals Short Term Goals Time Frame: Oct 17, 2018 Transfers (B,C,W/C) (FIM): 4 Gait (FIM): 2 Distance (FIM): 9=301-45 ft Gait Distance Comment: 50 ft Gait Level of Assist: 4 Gait Assistive Device: FWW Wheelchair Distance: 0 feet Stairs (FIM): 2 # of Steps: 1 PT Penitentiary Goals Penitentiary Goals PT Penitentiary Goals Time Frame: Oct 31, 2018 Transfers (B,C,W/C) (FIM): 6 Sit to Lying (QC): 6 Lying-Sitting on Side/Bed(QC): 6 Sit to Stand (QC): 6 Rollin Roll Left to Right (QC): 6 Chair/Qvu-ew-Gbelf Xfer(QC): 6 Car Transfer (QC): 5 Does the Patient Walk: No and Walking Goal IS indicated Gait (FIM): 6 Gait distance (FIM): 3=150 ft Walk 10 feet (QC): 6 Walk 10ft-Uneven Surface(QC): 5 Walk 50ft with 2 Turns (QC): 6 Walk 150 ft (QC): 6 Gait Level of Assist: 6 Gait Assistive Device: FWW Does the Pt use WC or Scooter?: Yes Wheelchair (FIM): 6 Wheelchair distance (FIM): 3=150 ft Wheel 50 feet with 2 turns (QC: 6 Stairs (FIM): 5 # of Steps: 4 1 Step (curb) (QC): 6 4 Steps (QC): 6 12 Steps (QC): 88 Picking up an Object (QC): 4 PT Plan Problem List Problem List: Activity Tolerance, Functional Strength, Safety, Balance, Gait, Transfer, Bed Mobility, ROM Treatment/Plan Treatment Plan: Continue Plan of Care Treatment Plan: Bed Mobility, Education, Functional Activity Shiv, Functional Strength, Group Therapy, Gait, Safety, Therapeutic Exercise, Transfers Treatment Duration: Oct 31, 2018 Frequency: At least 5 of 7 days/Wk (IRF) Estimated Hrs Per Day: 1.5 hours per day Patient and/or Family Agrees t: Yes Safety Risks/Education Patient Education: Gait Training, Transfer Techniques, Correct Positioning, Safety Issues Teaching Recipient: Patient Teaching Methods: Demonstration, Discussion Response to Teaching: Reinforcement Needed Time/GCodes Time In: 1100 Time Out: 1200 Total Billed Treatment Time: 60 Total Billed Treatment 1 visit GT 30' EX 10' FA 20' PEBBLES BERRY PT Oct 06, 2018 12:01
[2018-10-06] MEDS: ASCORBIC ACID (VIT C) 500 MG TABLET PO SCH (12:03)
--- NOTE | 2018-10-06 13:00 | NUR ---
BEHAVIORAL HEALTH HERE TO SEE PATIENT. THEIR ONLY RECOMMENDATION AT THIS TIME IS A SLEEPING PILL. DR. MITCHELL NOTIFIED.
--- NOTE | 2018-10-06 14:00 | NUR ---
REQUESTS [place] CATHETER BE LEFT IN UNTIL PATIENT ONLY REQUIRES ASST. OF ONE TO GET UP.
--- NOTE | 2018-10-06 14:06 | PM&R Progress Note ---
Subjective This was a face to face visit with the patient. Date Seen by Provider: Oct 06, 2018 Time Seen by Provider: 11:40 Subjective/Events-last exam Patient was seen in her room this AM patient Min to mod assist for transfers Awaiting [facility] health consult Tongue coated and Mycostatin Swish and swallow ordered for Presumed oral thrush Date Identified: Oct 06, 2018 Time Identified: 12:00 Medication Intervention: Mycostatin swish and swallow as per above Review of Systems Neurological: Weakness Objective Physician Exam Last Set of Vital Signs Vital Signs Date Time Temp Pulse Resp B/P (MAP) Pulse Ox O2 Delivery O2 Flow Rate FiO2 10/06/18 05:56 97.0 67 18 118/73 (88) 98 Room Air Capillary Refill : I&O Intake and Output 10/06/18 00:00 Intake Total 1090 ml Output Total 800 ml Balance 290 ml Intake Oral 1090 ml Output Urine Total 800 ml # Bowel Movements 4 General: Alert, Oriented X3, Cooperative, No Acute Distress HEENT: Atraumatic, PERRLA, EOMI, Mucous Memb Moist/[place], Other (dysphagia) Neck: Supple, No JVD Lungs: Clear to Auscultation Heart: Regular Rate Abdomen: Normal Bowel Sounds, Soft, No Tenderness Extremities: No Edema Skin: No Rashes, No Breakdown, Other ([place] to DD) Neuro: Other (Strength 2 to 2+/5 Ble except Rt dorsiflexion 1/5 Weakness in both upper limbs as well) Results Lab Data Laboratory Tests 10/03/18 15:24: Glucometer 112H 10/03/18 20:17: Glucometer 157H 10/04/18 05:10: Glucometer 59*L 10/04/18 05:44: Glucometer 85 10/04/18 10:49: Glucometer 220H 10/04/18 17:02: Glucometer 236H 10/04/18 20:58: Glucometer 210H 10/05/18 04:57: Glucometer 101 10/05/18 12:28: Glucometer 274H 10/05/18 15:27: Glucometer 261H 10/05/18 20:16: Glucometer 298H 10/06/18 04:42: Glucometer 73 10/06/18 08:13: Glucometer 121H 10/06/18 10:55: Glucometer 272H Microbiology 10/04/18 C. difficile GDH Antigen & Toxins - Final, Complete Assessment/Plan Assessment and Plan MS exacerbation s/p course of IV steroids OSH Dysphagia on modified diet urinary retention managed with Indwelling [place] catheter HTN controlled with med DM followed by [facility] followed by [facility] to see Plan Continue PT/OT F/U with patient and spouse re TOV Mycostatin for oral thrush Team Conference held yesterday-see report for full functional update and POC and ELOS Co-Morbidities that are continuing to impact the rehab process: (include details ) SHARA MITCHELL MD Oct 06, 2018 14:06
--- NOTE | 2018-10-06 15:00 | NUR ---
DR. GARCIA HERE TO SEE PATIENT.
--- NOTE | 2018-10-06 15:00 | Behavioral Health Consult ---
Consult- Consult Date Seen by Provider: Oct 06, 2018 Time Seen by Provider: 13:00 Date: 10/06/18 CPT Code: 28319 Psychodiagnostic Examination, 93677 +Interactive Complexity, 1 unit(s) Start Time: 1:00 pm Stop Time: 1:50 pm Chief Complaint: anxiety and depression Referral: Carmen Valerio is a 67-year-old, , female referred by Dr. rBown for a clinical diagnostic assessment. Information for this evaluation was gathered from self-report and medical records. Presenting Problem: The presenting clinical problem is anxiety and depression. Carmen reported she is struggling to keep up. She stated she is easily fatigued. Carmen and her reported this illness came on suddenly and it is overwhelming trying to figure out what is going on and how they will adjust. They agreed they are not clear on what her health issue is. Her reported her mental processes seem slowed, but given time she is able to clearly explain herself. She reported she misses her cats and home. She reported she has had anxiety for a long time and especially anxiety when in the hospital. She stated she was in the hospital a lot as a child and that is when her anxiety with hospitals started. She had trouble answering therapists question about how long she has been on Xanax. Her response was about Xanax, but not about how long. Her reported she has been on Xanax for a long time and takes a half tablet in the morning and a half tablet at night to help her sleep. He reported her anxiety increases when there are many people around and when she is in the hospital. She reported she feels the depression will get better when she is able to go home. She reported her sleep has been poor. Her reported she does not always think to ask for her Xanax so he requested it be given to her at night. He reported he does not think that it is helping with her sleep as well. She reported decreased appetite, but might be related to her food restrictions. She reported some feelings of hopelessness and worthlessness and lack of enjoyment. She reported she gets frustrated at times that she cannot do what she could do prior to this health episode. She reported she wants life to be normal again. Her reported he feels she is handling this situation well given everything she is going through. She reported her mental confusion is better. She stated that when she was transferred to [place] and then back to [facility] she had confusions initially about where she was and how she got there. Overall symptoms observed or reported requiring current level of care include anergia, anhedonia, appetite disturbance, depressed mood, generalized anxiety, insomnia, irritability, medical problems, and worry. Observations/Mental Status: Carmen was lying in her hospital bed when therapist arrived. Her was present for part of the session. Overall appearance was unremarkable clinically. Carmen appeared to be an adequate historian. Gait and gross motor movements were not observed. Susan general approach to the evaluation was cooperative. Orientation was intact for person, place, time, and situation. Carmen evidenced good understanding of the reason for the appointment. Susan in-session behavior was cooperative. The predominant mood was depressed with slowed and delayed affect. Immediate attention and concentration was grossly intact. Memory functioning appeared to be mostly intact. Level of intellectual functioning compared to same age peers was estimated to be in the average range. Thought processes were found to be somewhat tangential and incomplete thoughts. Thought content appeared normal. There was no report or evidence of hallucinations or delusions. Psychomotor retardation was observed. Tone of voice was monotone. Expressive speech was marked by vague, unelaborated responses. Eye contact was fair. Insight was average. Overall, style of interacting during the appointment was appropriate and motivated. Current/Previous Mental Health Treatment: Past psychiatric history was reported as none. She reported taking Xanax for several years. Her reported they had tried Paxil and other long acting medication for anxiety in the past with no success. History of self or other harm none reported. Family history of mental health was reported as significant for anxiety. Medical History: Medical conditions were reported as multiple sclerosis, Diabetes mellitus, and hypertension. Drug allergies: heparin analogues, canaglifozin, codeine, erythromycin base, iodine, lorazepam, and zolpidem. Current physician is Dr. Goldsmith. Recreational Drug Usage: Substance abuse history was reported as none. 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 Her reported she has been a furnace caretaker for others in the past. Family and Social Histories: Carmen currently lives with her in [place], [place]. She reported they have a daughter, granddaughter, and great granddaughter. She reported her great granddaughter turned four last week and she was not able to throw her a birthday green party. Strengths/Weaknesses: Strengths/Resources: supportive family Liabilities/Barriers: health problems Summary of Assessment Information/Recommendations: Carmen is a 67-year-old female with history of anxiety symptoms. Following current assessment, presenting problem and symptoms appear consistent with a preliminary diagnosis of F41.1 Generalized Anxiety Disorder and F43.21 Adjustment Disorder with Depressed Mood. Current emotional symptoms are of moderate intensity. Overall, prognosis is estimated to be fair. Carmen is struggling with sleeping well at night and it is recommended that medication be considered to help with this. Her reported she was on a sleep aid several years ago that worked well. While she does appear to have some symptoms of depression the symptoms seem typical for her situation. It does not seem at this time that her depression symptoms require treatment with medication. Her anxiety appears to be a long standing issue that she has been able to manage with medication. Carmen and her reported difficulty with other anti-anxiety medications in the past so at this time it is not recommended to adjust her anti-anxiety medication. Therapist talked with Carmen and her about the possibility of her depression continuing. If her depression does continue they agreed to make her an appointment at [facility]. It is difficult to say at this time if her somnolence appearance is related to lack of sleep, medical condition, or depression. ICD-10 Diagnostic Impressions: F41.1 Generalized Anxiety Disorder F43.21 Adjustment Disorder with Depressed Mood MARIANNA VEGA Oct 06, 2018 15:00
--- NOTE | 2018-10-06 15:09 | Consultation-Hospitalist ---
HPI History of Present Illness: HPI/Chief Complaint Pt is a 67yoCF known to me from recent admission who was admitted to [facility] following inpatient stay at [facility] where she was diagnosed with MS. She has no complaints today other than how she looks. Discussed with RN who states that her BP has been much better today. I am consulted for medical management. Source: patient Exam Limitations: no limitations Date Seen 10/06/18 Attending Physician Denzel Brown MD PCP Frank Goldsmith MD Referring Physician Date of Admission Oct 03, 2018 at 13:40 Home Medications & Allergies Home Medications Reviewed patient Home Medication Reconciliation performed by pharmacy medication reconciliations community development technician and/or nursing. Patients Allergies have been reviewed. Allergies Allergies Coded Allergies canagliflozin (Verified Allergy, Severe, ANAPHYLAXIS, 07/22/15) iodine (Unverified Adverse Reaction, Severe, migraine headache, 07/11/10) lorazepam (Verified Adverse Reaction, Severe, ELEVATED BLOOD PRESSURE, 07/22/15 ) zolpidem (Verified Adverse Reaction, Severe, SLEEP WALK, 07/22/15) codeine (Unverified Adverse Reaction, Mild, INCREASED ACTIVITY, 08/13/10) erythromycin base (Unverified Adverse Reaction, Mild, NAUSEA, 08/13/10) Heparin Analogues (Unverified Adverse Reaction, Unknown, 08/13/10) Past [id number] Hx Past Med/Social Hx: Reviewed Nursing Past Med/Soc Hx Patient Social History Marrital Status: Alcohol Use: Denies Use Recreational Drug Use: No Smoking Status: Never a Smoker 2nd Hand Smoke Exposure: No Physical Abuse Screen: No Sexual Abuse: No Recent Foreign Travel: No Contact w/other who traveled: No Recent Hopitalizations: Yes ([facility]) Recent Infectious Disease Expo: No Immunizations Up To Date Tetanus Booster (TDap): More than 5yrs Date of Pneumonia Vaccine: Aug 01, 2012 Date of Influenza Vaccine: Aug 26, 2017 Seasonal Allergies Seasonal Allergies: Yes Past Medical History Surgeries: Appendectomy, Gallbladder, Hysterectomy, Pancreatic Cardiac: High Cholesterol, Hypertension Neurological: Headaches /Migraines, Multiple Sclerosis, Stroke, TIA 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: No Hysterectomy, Menopausal Genitourinary: Bladder Infection Gastrointestinal: Pancreatitis Endocrine: Diabetes, Insulin dep Psychosocial: Anxiety, Depression History of Blood Disorders: No Family History Arthritis 19 MOTHER Cardiovascular disease 19 FATHER CVA Review of Systems Constitutional: weakness EENTM: No blurred vision, No double vision, No nose congestion, No throat pain Respiratory: No cough, No dyspnea on exertion, No short of breath Cardiovascular: No chest pain, No edema, No palpitations Gastrointestinal: No abdominal pain, No constipation, No diarrhea, No nausea, No vomiting Genitourinary: No dysuria, No frequency Musculoskeletal: No joint pain, No muscle pain Skin: No lesions, No rash Psychiatric/Neurological: Denies Headache; Weakness Physical Exam Physical Exam Vital Signs Vital Signs - First Documented 10/03/18 13:50 Temp 98.8 Pulse 73 Resp 20 B/P (MAP) 143/80 (101) Pulse Ox 96 O2 Delivery Room Air Capillary Refill : Height, Weight, BMI Height: 5'4.00" Weight: 141lbs. 2.0oz. [id number]; 24.2 BMI Method:Stated General Appearance: No Apparent Distress, Chronically ill HEENT: PERRL/EOMI, Moist Mucous Membranes, Other (conjunctival hemmorrhage- left) Neck: Non Tender, Supple Respiratory: Lungs Clear, No Respiratory Distress Cardiovascular: Regular Rate, Rhythm, No Murmur Gastrointestinal: Normal Bowel Sounds, Non Tender, Soft Extremity: Normal Capillary Refill, No Calf Tenderness Neurologic/Psychiatric: Alert, Oriented x3, Normal Mood/Affect Skin: Normal Color, Warm/Dry Results Results/Procedures Labs Patient resulted labs reviewed. Assessment/Plan Assessment and Plan Assess & Plan/Chief Complaint Generalized Weakness Diagnosis/Problems Diagnosis/Problems (1) Generalized weakness Assessment & Plan: Management per primary PT/OT (2) Multiple sclerosis Assessment & Plan: Recently diagnosed Treated with IV steroids at [facility] Needs neurology follow up (3) Insulin dependent diabetes mellitus Assessment & Plan: Continue current insulin with SSI (4) Hypertension Status: Acute Assessment & Plan: BP much improved Continue current meds Clinical Quality Measures DVT/VTE Risk/Contraindication: Risk Factor Score Per Nursin RFS Level Per Nursing on Admit: 4+=Very High NATI GARCIA MD Oct 06, 2018 15:09
[2018-10-06 15:20] VITALS: BP 120/82
--- NOTE | 2018-10-06 15:21 | Speech Therapy Daily Note ---
Speech Daily Progress Note Subjective Date Seen by Provider: Oct 06, 2018 Time Seen by Provider: 00:30 Patient pleasant and cooperative. Patient appeared more rested today and was able to participate with minimal difficulty. Objective Patient completed simple word finding activities related to her daily needs with 80% accuracy given min to mod verbal cuing. Assessment Assessment Current Status: Good Progress Treatment Plan Continue Plan of Care Communication Comprehension: 4 Expression: 4 Social Cognition Social Interaction: 3 Problem Solvin Memory: 3 Speech Short Term Goals Short Term Goals Short Term Goals 1) Patient will use appropriate linguistic forms to communicate in everyday situations, with 90% or greater accuracy. 2) Patient will identify functions of common items, with 90% or greater accuracy. 3) Patient will express her wants/needs effectively with 90% accuracy. Speech Castables Worker Goals Prison Goals Patient will be able to effectively communicate within her immediate living environment at 90%. Speech-Plan Patient/Family Goals Patient/Family Goals: Patient plans to return home with her when she is stronger. Treatment Plan Speech Therapy Treatment Plan: Continue Plan of Care Patient is demonstrating progress with all goals. Treatment Duration: Oct 17, 2018 Frequency: 5 times per week Estimated Hrs Per Day: .5 hour per day Rehab Potential: Fair Barriers to Learning: Patient tires easily. Pt/Family Agrees to Plan: Yes Safety Risks/Education Teaching Recipient: Patient Teaching Methods: Discussion Response to Teaching: Verbalize Understanding Education Topics Provided: Safety and effective communication of wants/needs. Time Speech Therapy Time In: 09:00 Speech Therapy Time Out: 09:30 Total Billed Time: 30 Billed Treatment Time 1KEREN B[address]AN[address] ST Oct 06, 2018 15:21
[2018-10-06] MEDS ORDERED: TETRAHYDROZOLINE (VISINE) 0.05% 15 ML BTL OP PRN (16:45)
[2018-10-06] MEDS: glyBURIDE 5 MG (MICRONASE) TAB PO SCH (18:05)
[2018-10-06] MEDS: inSUlin DETERMIR 1 UNIT/0.01 ML (LEVEMIR) CHARGE PER UNIT SQ SCH (21:51)
[2018-10-06] MEDS: ASPIRIN E.C. 81 MG (ECOTRIN) TAB PO SCH (21:52)
[2018-10-06] MEDS: ALPRAZolam 0.25 MG (XANAX) TAB PO PRN (21:52)
[2018-10-07 05:26] VITALS: BP 142/83
[2018-10-07] MEDS: inSUlin ASPART (NovoLOG) 1 UNIT/0.01 ML (CHARGE PER UNIT) SC SCH ×4 (05:59→20:11)
[2018-10-07] MEDS: NYSTATIN ORAL SUSP 5 ML UDC PO SCH ×4 (06:00→23:27)
[2018-10-07] MEDS: MULTIVIT W/MINERALS TAB (THERAGRAN M) PO SCH (06:00)
[2018-10-07] MEDS: KCL 10 MEQ TAB (MICRO K) PO SCH (06:00)
[2018-10-07] MEDS: LACTOBACILLUS ACIDOPHILUS (PROBIOTIC) CAPSULE PO SCH (06:00)
[2018-10-07] MEDS: metFORMIN 500 MG (GLUCOPHAGE) TAB PO SCH ×2 (06:00→17:42)
[2018-10-07] MEDS: glyBURIDE 2.5 MG (MICRONASE) TAB PO SCH (06:00)
[2018-10-07] MEDS: VITAMIN D3 1,000 UNITS (CHOLECALCIFEROL) TABLET PO SCH (08:38)
[2018-10-07] MEDS: METANX PO SCH ×2 (08:38→20:13)
[2018-10-07] MEDS: meTOprolol TARTRATE 50 MG (LOPRESSOR) TAB PO SCH ×2 (08:38→20:12)
[2018-10-07] MEDS: CEPHALEXIN 250 MG (KEFLEX) CAP PO SCH ×2 (08:38→20:12)
[2018-10-07] MEDS: FLUTICASONE NASAL SPRAY (FLONASE) 16 GM BTL NS SCH (08:38)
[2018-10-07] MEDS: cloNIDine 0.1 MG (CATAPRES) TAB PO SCH ×3 (08:38→20:12)
--- NOTE | 2018-10-07 09:17 | Occupational Ther Daily Note ---
OT Current Status-Daily Note Subjective Pt alert, lying in bed. Pt agrees to therapy. No c/o pain at this time. During bathing, pt c/o back pain from leaning forward. Pt instructed to recline back and pain decreased. Pt does not think that she is doing any better. BLOUNT explains pt's improvements and pt states "if that's what you think ". Mental Status/Objective Patient Orientation: Person, Place, Time, Situation Therapy Code Descriptions/Definitions Functional [place] Measure: 0=Not Assessed/NA 4=Minimal Assistance 1=Total Assistance 5=Supervision or Setup 2=Maximal Assistance 6=Modified [place] 3=Moderate Assistance 7=Complete [place] Attachments: Carson Catheter ADL-Treatment Therapy Code Descriptions/Definitions Functional [place] Measure: 0=Not Assessed/NA 4=Minimal Assistance 1=Total Assistance 5=Supervision or Setup 2=Maximal Assistance 6=Modified [place] 3=Moderate Assistance 7=Complete [place] Therapy Quality Codes: 6 Independent with activity with or without an assistive device 5 Patient requires set up or clean up by helper. Patient completes activity by themselves 4 Supervision or touching assist (CGA). [place] provide cues , steadying assist 3 The helper provides less than half the effort to complete the activity 2 The helper provides more than half the effort to complete the activity 1 Dependent. The helper does all the effort to complete an activity 7 Patient refused to complete or attempt activity 9 The patient did not perform the activity before the current illness or injury 88 Not attempted due to Medical conditions or safety concerns Grooming (FIM): 6 (Sitting at sink, pt able to complete own grooming.) Oral Hygiene (QC): 6 Bathing (FIM): 3 (Pt requires set up and verbal cues to initiate bathing areas. Pt is progressing and is able to wash areas effectively. Assist with lower body and buttocks due to weakness and sitting balance.) Bathing Location: L Arm, R Arm, L Upper Leg, R Upper Leg, Chest, Abdomen, Perineal Area Shower/Bathe Self (QC): 3 Upper Body (FIM): 2 (Pt doffed shirt with min A. Pt was able to thread shirt onto first arm then assist to place around back and 2nd arm through sleeve then button.) Upper Body Dressing (QC): 2 Lower Body Dressing (FIM): 2 (Pt able to raise LE's to thread legs through. Pt able to stand with grabbars and balance while assist to hike pants over hips. ) Lower Body Dressing (QC): 2 On/Off Footwear (QC): 2 Shower Transfer(FIM): 4 (Using grabbars, w/c and tub seat pt able to complete transfer with min A.) Pt takes increased time to complete tasks. Pt will wait on verbal cues to initiate tasks. After therapy, pt sitting in recliner left in care of RESIDENT PROGRAM SPECIALIST. Call light/phone in reach. All needs met in room. OT Short Term Goals Short Term Goals Time Frame: Oct 17, 2018 Eating(FIM): 3 Grooming(FIM): 3 Bathing(FIM): 3 Upper Body Dressing(FIM): 4 Lower Body Dressing(FIM): 3 Toileting(FIM): 3 Transfers (B,C,W/C) (FIM): 4 Toilet/Commode Transfer(FIM): 4 Shower Transfer(FIM): 4 Additional Short Term Goals: 1-Demonstrate ADL Tasks, 2-Verbalize Understanding , 3-ImproveStrength/Shiv 1=Demonstrate adherence to instructed precautions during ADL tasks. 2=Patient will verbalize/demonstrate understanding of assistive devices/ modifications for ADL. 3=Patient will improve strength/tolerance for activity to enable patient to perform ADL's. OT Fdc Goals Fdc Goals Time Frame: Oct 31, 2018 Eating (FIM): 6 Eating (QC): 6 Groomin Oral Hygiene (QC): 5 Bathing(FIM): 5 Shower/Bathe Self (QC): 4 Upper Body Dressing(FIM): 5 Upper Body Dressing (QC): 5 Lower Body Dressing(FIM): 5 Lower Body Dressing (QC): 4 On/Off Footwear (QC): 4 Toileting(FIM): 6 Toileting Hygiene (QC): 6 Transfers (B,C,W/C) (FIM): 6 Toilet/Commode Transfer(FIM): 6 Toilet/Commode Transfer (QC): 6 Shower Transfer(FIM): 5 Additional Goals: 1-Demonstrate ADL Tasks, 2-Verbalize Understanding, 3- ImproveStrength/Shiv 1=Demonstrate adherence to instructed precautions during ADL tasks. 2=Patient will verbalize/demonstrate understanding of assistive devices/ modifications for ADL. 3=Patient will improve strength/tolerance for activity to enable patient to perform ADL's. OT Education/Plan Discharge Recommendations Plan/Recommendations: Continue POC Treatment Plan/Plan of Care Patient would benefit from OT for education, treatment and training to promote independence in ADL's, mobility, safety and/or upper extremity function for ADL' s. Plan of Care: ADL Retraining, Caregiver Training, Cognitive Retraining, Functional Mobility, Group Exercise/Act as Ind, UE Funct Exercise/Act Treatment Duration: Oct 31, 2018 Frequency: At least 5 of 7 days/Wk (IRF) Estimated Hrs Per Day: 1.5 hours per day Agreement: Yes Rehab Potential: Fair Time/GCodes Start Time: 08:00 Stop Time: 09:00 Total Time Billed (hr/min): 60 Billed Treatment Time 1 visit-ADL 4 (60 min) JORGE TERRY Oct 07, 2018 09:17
--- NOTE | 2018-10-07 10:52 | Physical Therapy Daily Note ---
PT Daily Note-Current Subjective Patient in recliner pre tx, agrees to PT, no complaints of pain. Appearance Patient in recliner post tx with nurse call, phone, tray, all needs met. Mental Status Patient Orientation: Person, Confused Transfers Therapy Code Descriptions/Definitions Functional [place] Measure: 0=Not Assessed/NA 4=Minimal Assistance 1=Total Assistance 5=Supervision or Setup 2=Maximal Assistance 6=Modified [place] 3=Moderate Assistance 7=Complete [place] Therapy Quality Codes: 6 Independent with activity with or without an assistive device 5 Patient requires set up or clean up by helper. Patient completes activity by themselves 4 Supervision or touching assist (CGA). [place] provide cues , steadying assist 3 The helper provides less than half the effort to complete the activity 2 The helper provides more than half the effort to complete the activity 1 Dependent. The helper does all the effort to complete an activity 7 Patient refused to complete or attempt activity 9 The patient did not perform the activity before the current illness or injury 88 Not attempted due to Medical conditions or safety concerns Transfers (B, C, W/C) (FIM): 3 Sit to/from Stand: 4 Bed to/from Chair: 3 Patient has started resisting stand pivot transfers to either side, needs cues to help, not hinder the transfer. Cues for hand placement and positioning during every transfer. Weight Bearing Right Lower Extremity: Right Full Weight Bearing Left Lower Extremity: Left Full Weight Bearing Gait Training Gait (FIM): 1 Distance: 5'x3 Gait Level of Assist: 3 Gait Persons Needed: 1 Gait Assistive Device: FWW Wheelchair follow. Patient needs assist guiding the walker, weight shifting to help her advance her right leg. Wheelchair Training Wheelchair (FIM): 1 Type of Wheelchair: Manual Attempted wheelchair mobility training, with use of both arms and legs but patient would only put her hands on the rims and not actually attempt to push them. Exercises NuStep Minutes: 15 NuStep Workload: 3 Treatments transfer training, functional strengthening, gait training Assessment Current Status: Poor Progress Patient states she is very tired and has trouble performing exercises, transfers , etc, but she appears to not even try with a lot of things such as wheelchair mobility. Patient performed NuStep and needed constant cues to keep going because she would do it for a few seconds and then just stop. PT Short Term Goals Short Term Goals Time Frame: Oct 17, 2018 Transfers (B,C,W/C) (FIM): 4 Gait (FIM): 2 Distance (FIM): 9=788-96 ft Gait Distance Comment: 50 ft Gait Level of Assist: 4 Gait Assistive Device: FWW Wheelchair Distance: 0 feet Stairs (FIM): 2 # of Steps: 1 PT Flipping Machine Operator Goals Long-Term Goals PT Flipping Machine Operator Goals Time Frame: Oct 31, 2018 Transfers (B,C,W/C) (FIM): 6 Sit to Lying (QC): 6 Lying-Sitting on Side/Bed(QC): 6 Sit to Stand (QC): 6 Rollin Roll Left to Right (QC): 6 Chair/[place] Xfer(QC): 6 Car Transfer (QC): 5 Does the Patient Walk: No and Walking Goal IS indicated Gait (FIM): 6 Gait distance (FIM): 3=150 ft Walk 10 feet (QC): 6 Walk 10ft-Uneven Surface(QC): 5 Walk 50ft with 2 Turns (QC): 6 Walk 150 ft (QC): 6 Gait Level of Assist: 6 Gait Assistive Device: FWW Does the Pt use WC or Scooter?: Yes Wheelchair (FIM): 6 Wheelchair distance (FIM): 3=150 ft Wheel 50 feet with 2 turns (QC: 6 Stairs (FIM): 5 # of Steps: 4 1 Step (curb) (QC): 6 4 Steps (QC): 6 12 Steps (QC): 88 Picking up an Object (QC): 4 PT Plan Problem List Problem List: Activity Tolerance, Functional Strength, Safety, Balance, Gait, Transfer, Bed Mobility, ROM Treatment/Plan Treatment Plan: Continue Plan of Care Treatment Plan: Bed Mobility, Education, Functional Activity Shiv, Functional Strength, Group Therapy, Gait, Safety, Therapeutic Exercise, Transfers Treatment Duration: Oct 31, 2018 Frequency: At least 5 of 7 days/Wk (IRF) Estimated Hrs Per Day: 1.5 hours per day Patient and/or Family Agrees t: Yes Safety Risks/Education Patient Education: Gait Training, Transfer Techniques, Correct Positioning, Safety Issues Teaching Recipient: Patient Teaching Methods: Demonstration, Discussion Response to Teaching: Reinforcement Needed Time/GCodes Time In: 1000 Time Out: 1055 Total Billed Treatment Time: 55 Total Billed Treatment 1 visit EX 15' GT 25' FA 15' PEBBLES BERRY PT Oct 07, 2018 10:52
--- NOTE | 2018-10-07 12:02 | Speech Therapy Daily Note ---
Speech Daily Progress Note Subjective Date Seen by Provider: Oct 07, 2018 Time Seen by Provider: 00:30 Patient was sitting upright in her recliner putting on makeup this am when I arrived. Objective Patient was tried on upgrade in diet without difficulty. Patient will be upgraded to mechanical soft with moistened ground meats and thin liquids via straw. (Dysphagia 2 level) Treatment Plan Modify Plan, See Comments (Patient will be upgraded in diet to Dysphagia 2 level.) Communication Comprehension: 4 Expression: 4 Social Cognition Social Interaction: 3 Problem Solvin Memory: 3 Speech Short Term Goals Short Term Goals Short Term Goals 1) Patient will use appropriate linguistic forms to communicate in everyday situations, with 90% or greater accuracy. 2) Patient will identify functions of common items, with 90% or greater accuracy. 3) Patient will express her wants/needs effectively with 90% accuracy. Speech Tucking Machine Operator Goals Intermediate Goals Patient will be able to effectively communicate within her immediate living environment at 90%. Speech-Plan Patient/Family Goals Patient/Family Goals: Patient plans to return home with her when she has completed rehab. Treatment Plan Speech Therapy Treatment Plan: Continue Plan of Care Patient is progressing well with all therapies. Treatment Duration: Oct 17, 2018 Frequency: 5 times per week Estimated Hrs Per Day: .5 hour per day Rehab Potential: Fair Barriers to Learning: Patient tires very easily and has full body weakness. Pt/Family Agrees to Plan: Yes Safety Risks/Education Teaching Recipient: Patient Teaching Methods: Discussion Response to Teaching: Verbalize Understanding Education Topics Provided: Safety and communication of needs. Time Speech Therapy Time In: 09:00 Speech Therapy Time Out: 09:30 Total Billed Time: 30 Billed Treatment Time 1, KEREN, HAILE Castillo Oct 07, 2018 12:02
[2018-10-07] MEDS: MAGNESIUM 100 MG PO SCH (12:55)
[2018-10-07] MEDS: LOSARTAN 50 MG (COZAAR) TAB PO SCH (12:56)
[2018-10-07] MEDS: ASCORBIC ACID (VIT C) 500 MG TABLET PO SCH (12:56)
--- NOTE | 2018-10-07 14:38 | Therapy Group Daily Note ---
Therapy Daily Group Note Patient Education Topic Other List Below (Exercises benefits, ARU orientation) Exercises LE Seated Exercise, UE Exercise Other/Notes Pt transported via w/c to [facility] for OT/PT group. Group consisted of introductions (name, place living, icebreaker questions), benefits of exercise, peer led UE/LE seated exercises and orientation to ARU. Pt introduced self appropriately though strayed from topics requiring verbal cues to allow other to talk. Actively listened to peers introduce themselves. Pt was able to read exercise card and lead peers in an exercise then completed others without difficulty. Pt was able to answer icebreaker questions after rolling/throwing jumbo dice. Pt asked appropriate questions to peers. Verbalized understanding of educational topics. After group, pt lying in bed with call light/phone in reach. in room. All needs met in room. Start Time: 13:00 Stop Time: 14:20 Total Billed Treatment Time: 80 Total Billed Treatment 1-GRP JORGE TERRY Oct 07, 2018 14:37
[2018-10-07] MEDS: glyBURIDE 5 MG (MICRONASE) TAB PO SCH (17:42)
[2018-10-07 18:00] VITALS: BP 148/80
[2018-10-07] MEDS: inSUlin DETERMIR 1 UNIT/0.01 ML (LEVEMIR) CHARGE PER UNIT SQ SCH (20:11)
[2018-10-07] MEDS: ALPRAZolam 0.25 MG (XANAX) TAB PO PRN (20:12)
[2018-10-07] MEDS: ASPIRIN E.C. 81 MG (ECOTRIN) TAB PO SCH (20:12)
[2018-10-08 05:23] VITALS: BP 138/83
[2018-10-08] MEDS: NYSTATIN ORAL SUSP 5 ML UDC PO SCH ×4 (06:24→23:02)
[2018-10-08] MEDS: glyBURIDE 2.5 MG (MICRONASE) TAB PO SCH (06:24)
[2018-10-08] MEDS: LACTOBACILLUS ACIDOPHILUS (PROBIOTIC) CAPSULE PO SCH (06:24)
[2018-10-08] MEDS: KCL 10 MEQ TAB (MICRO K) PO SCH (06:24)
[2018-10-08] MEDS: MULTIVIT W/MINERALS TAB (THERAGRAN M) PO SCH (06:24)
[2018-10-08] MEDS: metFORMIN 500 MG (GLUCOPHAGE) TAB PO SCH ×2 (06:24→17:14)
[2018-10-08] MEDS: inSUlin ASPART (NovoLOG) 1 UNIT/0.01 ML (CHARGE PER UNIT) SC SCH ×4 (06:25→20:12)
--- NOTE | 2018-10-08 07:44 | PM&R Progress Note ---
Subjective This was a face to face visit with the patient. Date Seen by Provider: Oct 08, 2018 Time Seen by Provider: 07:30 Subjective/Events-last exam Patient was seen in her room this AM Stool for C dif negative Discussed case with CAITLYN Ag bottoming out in AM Will decrease HS dose Insulin See orders.Patient Min to mod assist for transfers Date Identified: Oct 08, 2018 Time Identified: 07:30 Medication Intervention: Insulin decreased as per above Review of Systems HEENT: Other (difficulty with swallow) Neurological: Weakness Objective Physician Exam Last Set of Vital Signs Vital Signs Date Time Temp Pulse Resp B/P (MAP) Pulse Ox O2 Delivery O2 Flow Rate FiO2 10/08/18 05:23 97.6 70 18 138/83 (101) 95 Room Air Capillary Refill : I&O Intake and Output 10/08/18 00:00 Intake Total 750 ml Output Total 850 ml Balance -100 ml Intake Oral 750 ml Output Urine Total 850 ml General: Alert, Oriented X3, Cooperative, No Acute Distress HEENT: Atraumatic, PERRLA, EOMI, Mucous Memb Moist/[place], Other (dysphagia) Neck: Supple, No JVD Lungs: Clear to Auscultation Heart: Regular Rate Abdomen: Normal Bowel Sounds, Soft, No Tenderness Extremities: No Edema Skin: No Rashes, No Breakdown, Other (Carson to DD) Neuro: Other (Strength 2 to 2+/5 Ble except Rt dorsiflexion 1/5 Weakness in both upper limbs as well) Results Lab Data Laboratory Tests 10/05/18 12:28: Glucometer 274H 10/05/18 15:27: Glucometer 261H 10/05/18 20:16: Glucometer 298H 10/06/18 04:42: Glucometer 73 10/06/18 08:13: Glucometer 121H 10/06/18 10:55: Glucometer 272H 10/06/18 15:19: Glucometer 147H 10/06/18 21:48: Glucometer 297H 10/07/18 05:14: Glucometer 60*L 10/07/18 05:49: Glucometer 80 10/07/18 10:32: Glucometer 157H 10/07/18 15:57: Glucometer 170H 10/07/18 20:08: Glucometer 225H 10/08/18 04:55: Glucometer 65L 10/08/18 06:43: Glucometer 194H Microbiology 10/04/18 C. difficile GD Antigen & Toxins - Final, Complete Assessment/Plan Assessment and Plan MS exacerbation s/p course of IV steroids Dysphagia on Modified diet DM with hypoglycemia Adjust Insulin Urinary retention/Bladder management- DR Barton to see re TOV HTN controlled with med HLP followed by Endo in [place] Anxiety Behav Health consult Plan Continue PT/OT/ST Reconference next week Decrease Insulin see orders Co-Morbidities that are continuing to impact the rehab process: (include details ) SHARA MITCHELL MD Oct 08, 2018 07:44
[2018-10-08] MEDS: cloNIDine 0.1 MG (CATAPRES) TAB PO SCH ×3 (09:08→20:05)
[2018-10-08] MEDS: meTOprolol TARTRATE 50 MG (LOPRESSOR) TAB PO SCH ×2 (09:08→20:05)
[2018-10-08] MEDS: FLUTICASONE NASAL SPRAY (FLONASE) 16 GM BTL NS SCH (09:09)
[2018-10-08] MEDS: METANX PO SCH ×2 (09:09→20:06)
[2018-10-08] MEDS: CEPHALEXIN 250 MG (KEFLEX) CAP PO SCH (09:09)
[2018-10-08] MEDS: VITAMIN D3 1,000 UNITS (CHOLECALCIFEROL) TABLET PO SCH (09:09)
--- NOTE | 2018-10-08 09:27 | Physical Therapy Daily Note ---
PT Daily Note-Current Subjective Very soft speaking voice pt. shares that she is just so weak, states she hasnt been up in recliner as it seems sitting is too hard to do. This DESIGN DIRECTOR demonstrating the advantages of lift recline, pt. agrees Pain Numeric Pain Scale: 0-No Pain Mental Status Patient Orientation: Person, Place, Time, Situation Attachments: Carson Catheter Transfers Therapy Code Descriptions/Definitions Functional [place] Measure: 0=Not Assessed/NA 4=Minimal Assistance 1=Total Assistance 5=Supervision or Setup 2=Maximal Assistance 6=Modified [place] 3=Moderate Assistance 7=Complete [place] Therapy Quality Codes: 6 Independent with activity with or without an assistive device 5 Patient requires set up or clean up by helper. Patient completes activity by themselves 4 Supervision or touching assist (CGA). [place] provide cues , steadying assist 3 The helper provides less than half the effort to complete the activity 2 The helper provides more than half the effort to complete the activity 1 Dependent. The helper does all the effort to complete an activity 7 Patient refused to complete or attempt activity 9 The patient did not perform the activity before the current illness or injury 88 Not attempted due to Medical conditions or safety concerns Transfers (B, C, W/C) (FIM): 3 Scootin Rollin Supine to/from Sit: 3 Sit to/from Stand: 4 Bed to/from Chair: 3 Weight Bearing Right Lower Extremity: Right Full Weight Bearing Left Lower Extremity: Left Full Weight Bearing Gait Training 4-6 small steps side ways bed to recliner, hand held assist Exercises Supine Ex: Bridging, Ankle pumps, Quad Set, Rolling, Glut sets, Heel Slides, Scooting, Hip abd/add Supine Reps: 10 (all with assist) Treatments siting EOB 5 mins with SBA Assessment Current Status: Fair Progress PT Short Term Goals Short Term Goals Time Frame: Oct 17, 2018 Transfers (B,C,W/C) (FIM): 4 Gait (FIM): 2 Distance (FIM): 7=818-88 ft Gait Distance Comment: 50 ft Gait Level of Assist: 4 Gait Assistive Device: FWW Wheelchair Distance: 0 feet Stairs (FIM): 2 # of Steps: 1 PT Jail Goals Community Outreach Manager Goals PT Jail Goals Time Frame: Oct 31, 2018 Transfers (B,C,W/C) (FIM): 6 Sit to Lying (QC): 6 Lying-Sitting on Side/Bed(QC): 6 Sit to Stand (QC): 6 Rollin Roll Left to Right (QC): 6 Chair/Uiz-xp-Qhsfm Xfer(QC): 6 Car Transfer (QC): 5 Does the Patient Walk: No and Walking Goal IS indicated Gait (FIM): 6 Gait distance (FIM): 3=150 ft Walk 10 feet (QC): 6 Walk 10ft-Uneven Surface(QC): 5 Walk 50ft with 2 Turns (QC): 6 Walk 150 ft (QC): 6 Gait Level of Assist: 6 Gait Assistive Device: FWW Does the Pt use WC or Scooter?: Yes Wheelchair (FIM): 6 Wheelchair distance (FIM): 3=150 ft Wheel 50 feet with 2 turns (QC: 6 Stairs (FIM): 5 # of Steps: 4 1 Step (curb) (QC): 6 4 Steps (QC): 6 12 Steps (QC): 88 Picking up an Object (QC): 4 PT Plan Treatment/Plan Treatment Plan: Continue Plan of Care Treatment Plan: Bed Mobility, Education, Functional Activity Shiv, Functional Strength, Group Therapy, Gait, Safety, Therapeutic Exercise, Transfers Treatment Duration: Oct 31, 2018 Frequency: At least 5 of 7 days/Wk (IRF) Estimated Hrs Per Day: 1.5 hours per day Patient and/or Family Agrees t: Yes Safety Risks/Education Patient Education: Gait Training, Transfer Techniques, Correct Positioning, Disease Process, Safety Issues Teaching Recipient: Patient Teaching Methods: Demonstration, Discussion Response to Teaching: Verbalize Understanding, Return Demonstration, Reinforcement Needed Time/GCodes Time In: 820 Time Out: 850 Total Billed Treatment Time: 30 Total Billed Treatment 1,EX10m,FA20m G Codes Necessary: No WILLIAM JULIAN DESIGN DIRECTOR Oct 08, 2018 09:27
[2018-10-08] MEDS ORDERED: TOLTERODINE LA 4 MG (DETROL) CAP PO ONE (10:15)
[2018-10-08] MEDS: MAGNESIUM 100 MG PO SCH (11:22)
[2018-10-08] MEDS: ASCORBIC ACID (VIT C) 500 MG TABLET PO SCH (11:22)
[2018-10-08] MEDS: LOSARTAN 50 MG (COZAAR) TAB PO SCH (11:22)
--- NOTE | 2018-10-08 12:05 | CONSULTATION REPORT ---
DATE OF SERVICE: 10/08/2018 ATTENDING PHYSICIAN: Dr. Brown. SUMMARY: A 67-year-old white man, recently diagnosed with a mass and per chart, had urinary retention, treated with Carson catheter and apparently failed voidings; however, the patient most complaint is urinary incontinence. She says no problem passing urine. It is an unclear situation at this point. She denies any previous surgery of her bladder. No bladder medications. IMPRESSION: Neurogenic bladder retention versus and/or incontinence secondary to multiple sclerosis. PLAN: For now, we will leave the catheter over the weekend. We will start her on some Detrol LA. I will check with Dr. Brown on Wednesday or so and see what exactly the problem with her urination is. If it is a combination of retention and incontinence, we can always help with catheterization and anticholinergic. If it is mostly retention, we will address that issue was cholinergic and stop the Detrol LA. If it is incontinence, we would address only the Detrol LA situation. Job ID: [id number] DocumentID: [id number] Dictated Date: 10/08/2018 10:25:46 Receptionist Telephone Operator Date: 10/08/2018 12:04:32 Dictated By: OLI SMITH MD
[2018-10-08] MEDS: glyBURIDE 5 MG (MICRONASE) TAB PO SCH (17:13)
[2018-10-08 17:18] VITALS: BP 158/82
[2018-10-08] MEDS: inSUlin DETERMIR 1 UNIT/0.01 ML (LEVEMIR) CHARGE PER UNIT SQ SCH (20:05)
[2018-10-08] MEDS: TOLTERODINE LA 4 MG (DETROL) CAP PO SCH (20:05)
[2018-10-08] MEDS: ASPIRIN E.C. 81 MG (ECOTRIN) TAB PO SCH (20:05)
[2018-10-08] MEDS: ALPRAZolam 0.25 MG (XANAX) TAB PO PRN (20:05)
[2018-10-09 05:02] VITALS: BP 147/85
[2018-10-09] MEDS: inSUlin ASPART (NovoLOG) 1 UNIT/0.01 ML (CHARGE PER UNIT) SC SCH ×4 (05:34→21:05)
[2018-10-09] MEDS: NYSTATIN ORAL SUSP 5 ML UDC PO SCH ×4 (05:51→23:21)
[2018-10-09] MEDS: MULTIVIT W/MINERALS TAB (THERAGRAN M) PO SCH (05:51)
[2018-10-09] MEDS: KCL 10 MEQ TAB (MICRO K) PO SCH (05:51)
[2018-10-09] MEDS: glyBURIDE 2.5 MG (MICRONASE) TAB PO SCH (05:51)
[2018-10-09] MEDS: LACTOBACILLUS ACIDOPHILUS (PROBIOTIC) CAPSULE PO SCH (05:51)
[2018-10-09] MEDS: metFORMIN 500 MG (GLUCOPHAGE) TAB PO SCH ×2 (05:51→17:30)
[2018-10-09 09:48] VITALS: BP 145/79
[2018-10-09] MEDS: meTOprolol TARTRATE 50 MG (LOPRESSOR) TAB PO SCH ×2 (09:50→21:03)
[2018-10-09] MEDS: cloNIDine 0.1 MG (CATAPRES) TAB PO SCH ×3 (09:50→21:03)
[2018-10-09] MEDS: VITAMIN D3 1,000 UNITS (CHOLECALCIFEROL) TABLET PO SCH (09:50)
[2018-10-09] MEDS: FLUTICASONE NASAL SPRAY (FLONASE) 16 GM BTL NS SCH (09:51)
[2018-10-09] MEDS: METANX PO SCH ×2 (09:51→21:03)
[2018-10-09] MEDS: MAGNESIUM 100 MG PO SCH (11:40)
[2018-10-09] MEDS: LOSARTAN 50 MG (COZAAR) TAB PO SCH (11:41)
[2018-10-09] MEDS: ASCORBIC ACID (VIT C) 500 MG TABLET PO SCH (11:41)
[2018-10-09 11:46] VITALS: BP 146/85
[2018-10-09 15:23] VITALS: BP 153/84
[2018-10-09] MEDS: glyBURIDE 5 MG (MICRONASE) TAB PO SCH (17:30)
[2018-10-09] MEDS: TOLTERODINE LA 4 MG (DETROL) CAP PO SCH (21:03)
[2018-10-09] MEDS: ASPIRIN E.C. 81 MG (ECOTRIN) TAB PO SCH (21:03)
[2018-10-09] MEDS: ALPRAZolam 0.25 MG (XANAX) TAB PO PRN (21:03)
[2018-10-09] MEDS: inSUlin DETERMIR 1 UNIT/0.01 ML (LEVEMIR) CHARGE PER UNIT SQ SCH (21:04)
[2018-10-10 05:00] VITALS: BP 138/82
[2018-10-10] MEDS: NYSTATIN ORAL SUSP 5 ML UDC PO SCH ×3 (05:14→17:14)
[2018-10-10] MEDS: inSUlin ASPART (NovoLOG) 1 UNIT/0.01 ML (CHARGE PER UNIT) SC SCH ×4 (05:15→20:31)
[2018-10-10] MEDS: KCL 10 MEQ TAB (MICRO K) PO SCH (06:32)
[2018-10-10] MEDS: metFORMIN 500 MG (GLUCOPHAGE) TAB PO SCH ×2 (06:32→17:02)
[2018-10-10] MEDS: LACTOBACILLUS ACIDOPHILUS (PROBIOTIC) CAPSULE PO SCH (06:32)
[2018-10-10] MEDS: glyBURIDE 2.5 MG (MICRONASE) TAB PO SCH (06:32)
[2018-10-10] MEDS: MULTIVIT W/MINERALS TAB (THERAGRAN M) PO SCH (06:32)
[2018-10-10 07:56] VITALS: BP 147/81
[2018-10-10] MEDS: VITAMIN D3 1,000 UNITS (CHOLECALCIFEROL) TABLET PO SCH (08:03)
[2018-10-10] MEDS: METANX PO SCH ×2 (08:03→20:18)
[2018-10-10] MEDS: cloNIDine 0.1 MG (CATAPRES) TAB PO SCH ×3 (08:03→20:17)
[2018-10-10] MEDS: meTOprolol TARTRATE 50 MG (LOPRESSOR) TAB PO SCH ×2 (08:03→20:17)
[2018-10-10] MEDS: FLUTICASONE NASAL SPRAY (FLONASE) 16 GM BTL NS SCH (08:08)
--- NOTE | 2018-10-10 09:27 | Occupational Ther Daily Note ---
OT Current Status-Daily Note Subjective Pt alert, lying in bed finishing breakfast. Pt agrees to therapy. No c/o pain at this time. Mental Status/Objective Patient Orientation: Person, Place, Time, Situation Therapy Code Descriptions/Definitions Functional [place] Measure: 0=Not Assessed/NA 4=Minimal Assistance 1=Total Assistance 5=Supervision or Setup 2=Maximal Assistance 6=Modified [place] 3=Moderate Assistance 7=Complete [place] Attachments: Carson Catheter ADL-Treatment Pt agrees to shower. Pt requires encouragement to attempt tasks on own. Tasks take increased time to decreased activity tolerance and decreased mobility and initiation of tasks. Therapy Code Descriptions/Definitions Functional [place] Measure: 0=Not Assessed/NA 4=Minimal Assistance 1=Total Assistance 5=Supervision or Setup 2=Maximal Assistance 6=Modified [place] 3=Moderate Assistance 7=Complete [place] Therapy Quality Codes: 6 Independent with activity with or without an assistive device 5 Patient requires set up or clean up by helper. Patient completes activity by themselves 4 Supervision or touching assist (CGA). [place] provide cues , steadying assist 3 The helper provides less than half the effort to complete the activity 2 The helper provides more than half the effort to complete the activity 1 Dependent. The helper does all the effort to complete an activity 7 Patient refused to complete or attempt activity 9 The patient did not perform the activity before the current illness or injury 88 Not attempted due to Medical conditions or safety concerns Grooming (FIM): 6 (Sitting in w/c at sink, pt is able to complete grooming.) Oral Hygiene (QC): 6 Bathing (FIM): 3 (Pt requires verbal cues to bathe areas. Assist to complete lower legs and buttocks. Pt able to stand and stabilize self using grabbar while assist to cleanse, rinse and dry buttocks. Encouragement in standing to straigthen up and stand for longer periods of time.) Bathing Location: L Arm, R Arm, L Upper Leg, R Upper Leg, Chest, Abdomen, Perineal Area Shower/Bathe Self (QC): 3 Upper Body (FIM): 3 (Pt able to doff shirt by self after cue to take off shirt. Verbal cues to sequence taking off shirt and encouragement to continue to try when shirt becomes difficult/stuck on elbows.) Upper Body Dressing (QC): 3 Lower Body Dressing (FIM): 2 (Assist to thread over feet and legs. Pt hikes briefs over hips with assist to stabilize in standing. Attempts to hike pants then fatigues quickly and asks to sit down, assist to hike pants and encouragement to stand longer.) Lower Body Dressing (QC): 2 On/Off Footwear (QC): 2 Shower Transfer(FIM): 4 (Using grabbars, pt able to hold onto grabbars and shuffle feet for SPT with min A.) Other Treatment Verbal and physical cues to propel w/c by self. Working on stretching chest and shldrs with ROM and breathing to encourage pt to sit up straight and find center of gravity. Pt was able to bend over sitting in w/c to retrieve 5 cones on floor with close SBA. After therapy, pt sitting in recliner with call light/ phone in reach. All needs met in room. OT Short Term Goals Short Term Goals Time Frame: Oct 17, 2018 Eating(FIM): 3 Grooming(FIM): 3 Bathing(FIM): 3 Upper Body Dressing(FIM): 4 Lower Body Dressing(FIM): 3 Toileting(FIM): 3 Transfers (B,C,W/C) (FIM): 4 Toilet/Commode Transfer(FIM): 4 Shower Transfer(FIM): 4 Additional Short Term Goals: 1-Demonstrate ADL Tasks, 2-Verbalize Understanding , 3-ImproveStrength/Shiv 1=Demonstrate adherence to instructed precautions during ADL tasks. 2=Patient will verbalize/demonstrate understanding of assistive devices/ modifications for ADL. 3=Patient will improve strength/tolerance for activity to enable patient to perform ADL's. OT Certified Wellness Program Coordinator Goals Certified Wellness Program Coordinator Goals Time Frame: Oct 31, 2018 Eating (FIM): 6 Eating (QC): 6 Groomin Oral Hygiene (QC): 5 Bathing(FIM): 5 Shower/Bathe Self (QC): 4 Upper Body Dressing(FIM): 5 Upper Body Dressing (QC): 5 Lower Body Dressing(FIM): 5 Lower Body Dressing (QC): 4 On/Off Footwear (QC): 4 Toileting(FIM): 6 Toileting Hygiene (QC): 6 Transfers (B,C,W/C) (FIM): 6 Toilet/Commode Transfer(FIM): 6 Toilet/Commode Transfer (QC): 6 Shower Transfer(FIM): 5 Additional Goals: 1-Demonstrate ADL Tasks, 2-Verbalize Understanding, 3- ImproveStrength/Shiv 1=Demonstrate adherence to instructed precautions during ADL tasks. 2=Patient will verbalize/demonstrate understanding of assistive devices/ modifications for ADL. 3=Patient will improve strength/tolerance for activity to enable patient to perform ADL's. OT Education/Plan Discharge Recommendations Plan/Recommendations: Continue POC Treatment Plan/Plan of Care Patient would benefit from OT for education, treatment and training to promote independence in ADL's, mobility, safety and/or upper extremity function for ADL' s. Plan of Care: ADL Retraining, Caregiver Training, Cognitive Retraining, Functional Mobility, Group Exercise/Act as Ind, UE Funct Exercise/Act Treatment Duration: Oct 31, 2018 Frequency: At least 5 of 7 days/Wk (IRF) Estimated Hrs Per Day: 1.5 hours per day Agreement: Yes Rehab Potential: Fair Time/GCodes Start Time: 08:30 Stop Time: 10:00 Total Time Billed (hr/min): 90 Billed Treatment Time 1 visit-ADL 4 (60 min) NM 2 (30 min) JORGE TERRY Oct 10, 2018 09:27
--- NOTE | 2018-10-10 10:58 | Physical Therapy Daily Note ---
PT Daily Note-Current Subjective Patient in recliner pre tx, agrees to PT, no complaints of pain. Appearance Patient in recliner post tx with nurse call, phone, tray, all needs met. Mental Status Patient Orientation: Person, Place Transfers Therapy Code Descriptions/Definitions Functional [place] Measure: 0=Not Assessed/NA 4=Minimal Assistance 1=Total Assistance 5=Supervision or Setup 2=Maximal Assistance 6=Modified [place] 3=Moderate Assistance 7=Complete [place] Therapy Quality Codes: 6 Independent with activity with or without an assistive device 5 Patient requires set up or clean up by helper. Patient completes activity by themselves 4 Supervision or touching assist (CGA). [place] provide cues , steadying assist 3 The helper provides less than half the effort to complete the activity 2 The helper provides more than half the effort to complete the activity 1 Dependent. The helper does all the effort to complete an activity 7 Patient refused to complete or attempt activity 9 The patient did not perform the activity before the current illness or injury 88 Not attempted due to Medical conditions or safety concerns Transfers (B, C, W/C) (FIM): 3 Sit to/from Stand: 3 Bed to/from Chair: 3 Patient performs the transfer better to the left side, she has a lot of trouble stepping to the side with the right leg. She needs cues for hand placement and positioning with every transfer. Weight Bearing Right Lower Extremity: Right Full Weight Bearing Left Lower Extremity: Left Full Weight Bearing Exercises Seated Therapy Exercises: Ankle pumps, Hip flexion, Hip abd/add Seated Reps: 20 LAQ alternating for 5 min NuStep Minutes: 15 NuStep Workload: 3 Treatments transfer training, functional strengthening Assessment Current Status: Poor Progress Patient performs all activities very slowly, needs frequent rest breaks due to fatigue. She gets distracted easily and will stop exercises and seem to stare off into space and needs cues to continue. She seems to have poor motivation and participates not with full effort. PT Short Term Goals Short Term Goals Time Frame: Oct 17, 2018 Transfers (B,C,W/C) (FIM): 4 Gait (FIM): 2 Distance (FIM): 7=998-36 ft Gait Distance Comment: 50 ft Gait Level of Assist: 4 Gait Assistive Device: FWW Wheelchair Distance: 0 feet Stairs (FIM): 2 # of Steps: 1 PT Wood Technologist Goals Wood Technologist Goals PT Care Home Goals Time Frame: Oct 31, 2018 Transfers (B,C,W/C) (FIM): 6 Sit to Lying (QC): 6 Lying-Sitting on Side/Bed(QC): 6 Sit to Stand (QC): 6 Rollin Roll Left to Right (QC): 6 Chair/Ncx-ng-Aruwt Xfer(QC): 6 Car Transfer (QC): 5 Does the Patient Walk: No and Walking Goal IS indicated Gait (FIM): 6 Gait distance (FIM): 3=150 ft Walk 10 feet (QC): 6 Walk 10ft-Uneven Surface(QC): 5 Walk 50ft with 2 Turns (QC): 6 Walk 150 ft (QC): 6 Gait Level of Assist: 6 Gait Assistive Device: FWW Does the Pt use WC or Scooter?: Yes Wheelchair (FIM): 6 Wheelchair distance (FIM): 3=150 ft Wheel 50 feet with 2 turns (QC: 6 Stairs (FIM): 5 # of Steps: 4 1 Step (curb) (QC): 6 4 Steps (QC): 6 12 Steps (QC): 88 Picking up an Object (QC): 4 PT Plan Problem List Problem List: Activity Tolerance, Functional Strength, Safety, Balance, Gait, Transfer, Bed Mobility, ROM Treatment/Plan Treatment Plan: Continue Plan of Care Treatment Plan: Bed Mobility, Education, Functional Activity Shiv, Functional Strength, Group Therapy, Gait, Safety, Therapeutic Exercise, Transfers Treatment Duration: Oct 31, 2018 Frequency: At least 5 of 7 days/Wk (IRF) Estimated Hrs Per Day: 1.5 hours per day Patient and/or Family Agrees t: Yes Safety Risks/Education Patient Education: Transfer Techniques, Correct Positioning, Safety Issues Teaching Recipient: Patient Teaching Methods: Demonstration, Discussion Response to Teaching: Reinforcement Needed Time/GCodes Time In: 1000 Time Out: 1100 Total Billed Treatment Time: 60 Total Billed Treatment 1 visit EX 30' FA 30' PEBBLES BERRY PT Oct 10, 2018 10:57
[2018-10-10] MEDS: MAGNESIUM 100 MG PO SCH (12:18)
[2018-10-10] MEDS: ASCORBIC ACID (VIT C) 500 MG TABLET PO SCH (12:18)
[2018-10-10] MEDS: LOSARTAN 50 MG (COZAAR) TAB PO SCH (12:18)
[2018-10-10 12:24] VITALS: BP 131/83
--- NOTE | 2018-10-10 12:56 | Speech Therapy Daily Note ---
Speech Daily Progress Note Subjective Date Seen by Provider: Oct 10, 2018 Time Seen by Provider: 00:30 Patient was sitting up in her recliner resting when I entered her room. Objective Patient completed memory tasks related to her daily activities over the weekend with mod verbal cues. Assessment Assessment Current Status: Good Progress Treatment Plan Continue Plan of Care Communication Comprehension: 4 Expression: 4 Social Cognition Social Interaction: 3 Problem Solvin Memory: 3 Speech Short Term Goals Short Term Goals Short Term Goals 1) Patient will use appropriate linguistic forms to communicate in everyday situations, with 90% or greater accuracy. 2) Patient will identify functions of common items, with 90% or greater accuracy. 3) Patient will express her wants/needs effectively with 90% accuracy. Speech Assisted Goals Assisted Goals Patient will be able to effectively communicate within her immediate living environment at 90%. Speech-Plan Patient/Family Goals Patient/Family Goals: Patient plans to return home with her and other family support post rehab. Treatment Plan Speech Therapy Treatment Plan: Continue Plan of Care Patient continues to be very weak and tires easily with any activity. Treatment Duration: Oct 17, 2018 Frequency: 5 times per week Estimated Hrs Per Day: .5 hour per day Rehab Potential: Fair Barriers to Learning: Patient tires with activity. Pt/Family Agrees to Plan: Yes Safety Risks/Education Teaching Recipient: Patient Teaching Methods: Discussion Response to Teaching: Verbalize Understanding Education Topics Provided: Safety within her room. Time Speech Therapy Time In: 11:00 Speech Therapy Time Out: 11:30 Total Billed Time: 30 Billed Treatment Time 1, HAILE Giordano Oct 10, 2018 12:56
--- NOTE | 2018-10-10 13:59 | NUR ---
Call from Dr. Batron. Orders to hold Detrol LA and remove catheter.
--- NOTE | 2018-10-10 15:45 | Physical Therapy Daily Note ---
PT Daily Note-Current Subjective Agreeable to PT. Spouse reports he is very pleased with the care they have received here. Transfers Therapy Code Descriptions/Definitions Functional [place] Measure: 0=Not Assessed/NA 4=Minimal Assistance 1=Total Assistance 5=Supervision or Setup 2=Maximal Assistance 6=Modified [place] 3=Moderate Assistance 7=Complete [place] Therapy Quality Codes: 6 Independent with activity with or without an assistive device 5 Patient requires set up or clean up by helper. Patient completes activity by themselves 4 Supervision or touching assist (CGA). [place] provide cues , steadying assist 3 The helper provides less than half the effort to complete the activity 2 The helper provides more than half the effort to complete the activity 1 Dependent. The helper does all the effort to complete an activity 7 Patient refused to complete or attempt activity 9 The patient did not perform the activity before the current illness or injury 88 Not attempted due to Medical conditions or safety concerns Transfers (B, C, W/C) (FIM): 2 Scootin Rollin Roll Left to Right (QC): 3 Supine to/from Sit: 2 (Assist with both legs as well as her trunk; max cues for sequencing and task initiation) Sit to/from Stand: 4 (min assist with skilled cues for for sequencing and hand placement. ) Sit to stand x 5 with min-CGA; with cues for upright posture and hip/knee extension; pt able to stand approx 30 sec each rep. Also performed sidestepping to the right with FWW with CGA and cues to sequence. Weight Bearing Right Lower Extremity: Right Full Weight Bearing Left Lower Extremity: Left Full Weight Bearing Treatments In bed post treatment with needs met and spouse present. Assessment Pt needs cues to initiate activity and cues for sequencing. Pt is participatory but with constant cues to initiate. Some slowness to process and respond noted. PT Short Term Goals Short Term Goals Time Frame: Oct 17, 2018 Transfers (B,C,W/C) (FIM): 4 Gait (FIM): 2 Distance (FIM): 7=171-71 ft Gait Distance Comment: 50 ft Gait Level of Assist: 4 Gait Assistive Device: FWW Wheelchair Distance: 0 feet Stairs (FIM): 2 # of Steps: 1 PT Pediatric Neuropsychologist Goals Mcc Goals PT Mcc Goals Time Frame: Oct 31, 2018 Transfers (B,C,W/C) (FIM): 6 Sit to Lying (QC): 6 Lying-Sitting on Side/Bed(QC): 6 Sit to Stand (QC): 6 Rollin Roll Left to Right (QC): 6 Chair/[place] Xfer(QC): 6 Car Transfer (QC): 5 Does the Patient Walk: No and Walking Goal IS indicated Gait (FIM): 6 Gait distance (FIM): 3=150 ft Walk 10 feet (QC): 6 Walk 10ft-Uneven Surface(QC): 5 Walk 50ft with 2 Turns (QC): 6 Walk 150 ft (QC): 6 Gait Level of Assist: 6 Gait Assistive Device: FWW Does the Pt use WC or Scooter?: Yes Wheelchair (FIM): 6 Wheelchair distance (FIM): 3=150 ft Wheel 50 feet with 2 turns (QC: 6 Stairs (FIM): 5 # of Steps: 4 1 Step (curb) (QC): 6 4 Steps (QC): 6 12 Steps (QC): 88 Picking up an Object (QC): 4 PT Plan Problem List Problem List: Activity Tolerance, Functional Strength, Safety, Balance, Gait, Transfer, Bed Mobility Treatment/Plan Treatment Plan: Continue Plan of Care Treatment Plan: Bed Mobility, Education, Functional Activity Shiv, Functional Strength, Group Therapy, Gait, Safety, Therapeutic Exercise, Transfers Treatment Duration: Oct 31, 2018 Frequency: At least 5 of 7 days/Wk (IRF) Estimated Hrs Per Day: 1.5 hours per day Patient and/or Family Agrees t: Yes Safety Risks/Education Patient Education: Transfer Techniques, Safety Issues Teaching Recipient: Patient Teaching Methods: Demonstration, Discussion Response to Teaching: Reinforcement Needed Time/GCodes Time In: 1513 Time Out: 1544 Total Billed Treatment Time: 31 Total Billed Treatment visit FA 31 JORGE WINCHESTER PT Oct 10, 2018 15:45
--- NOTE | 2018-10-10 15:46 | NUR ---
Carson catheter removed at this time. Will continue to monitor.
--- NOTE | 2018-10-10 16:21 | NUR ---
[place] care visit, pt shared at length about her health concerns and concerns about future living conditions and the emotional toll it has taken, provided active listening and support/encouragement and prayer. Addendum: 10/10/18 at 1628 by SAM NGUYEN This visit was at 10:30am
[2018-10-10] MEDS: glyBURIDE 5 MG (MICRONASE) TAB PO SCH (17:02)
[2018-10-10 17:16] VITALS: BP 153/78
--- NOTE | 2018-10-10 18:26 | PM&R Progress Note ---
Subjective This was a face to face visit with the patient. Date Seen by Provider: Oct 10, 2018 Time Seen by Provider: 18:00 Subjective/Events-last exam Patient was seen in her room this evening Case discussed with staff Patient Mod to max assist for transfers Appreciate DR Guzman note and orders Date Identified: Oct 10, 2018 Time Identified: 18:00 Medication Intervention: Meds adjusted to facilitate successful TOV Review of Systems HEENT: Other (dysphagia) Neurological: Weakness Objective Physician Exam Last Set of Vital Signs Vital Signs Date Time Temp Pulse Resp B/P (MAP) Pulse Ox O2 Delivery O2 Flow Rate FiO2 10/10/18 17:16 98.8 65 18 153/78 (103) 96 Room Air Capillary Refill : I&O Intake and Output 10/10/18 00:00 Intake Total 930 ml Output Total 1525 ml Balance -595 ml Intake Oral 930 ml Output Urine Total 1525 ml General: Alert, Oriented X3, Cooperative, No Acute Distress HEENT: Atraumatic, PERRLA, EOMI, Mucous Memb Moist/[place], Other (dysphagia) Neck: Supple, No JVD Lungs: Clear to Auscultation Heart: Regular Rate Abdomen: Normal Bowel Sounds, Soft, No Tenderness Extremities: No Edema Skin: No Rashes, No Breakdown, Other (Carson just d/cd for TOV) Neuro: Other (Strength 2 to 2+/5 Ble except Rt dorsiflexion 1/5 Weakness in both upper limbs as well) Results Lab Data Laboratory Tests 10/07/18 20:08: Glucometer 225H 10/08/18 04:55: Glucometer 65L 10/08/18 06:43: Glucometer 194H 10/08/18 11:01: Glucometer 152H 10/08/18 15:05: Glucometer 173H 10/08/18 20:05: Glucometer 263H 10/09/18 04:54: Glucometer 95 10/09/18 10:59: Glucometer 200H 10/09/18 15:20: Glucometer 194H 10/09/18 21:03: Glucometer 181H 10/10/18 04:36: Glucometer 111H 10/10/18 11:14: Glucometer 183H 10/10/18 16:03: Glucometer 212H Microbiology 10/04/18 C. difficile GDH Antigen & Toxins - Final, Complete Assessment/Plan Assessment and Plan MS exacerbation s/p course of IV steroids OSH Dysphagia on modified diet Urinary retention to have TOV HTN controlled with med 'DM with hypoglycemia resolved with adjustement in HS Insulin HLP followed by MARK Lynn Appreciate Behav Health consult Plan Continue PT/OT/ST Team Conference 10-12-18 F/U with Hospitalist service and PRN Monitor for urinary retention Co-Morbidities that are continuing to impact the rehab process: (include details ) SHARA MITCHELL MD Oct 10, 2018 18:26
[2018-10-10] MEDS: ASPIRIN E.C. 81 MG (ECOTRIN) TAB PO SCH (20:17)
[2018-10-10] MEDS: ALPRAZolam 0.25 MG (XANAX) TAB PO PRN (20:17)
[2018-10-10] MEDS: inSUlin DETERMIR 1 UNIT/0.01 ML (LEVEMIR) CHARGE PER UNIT SQ SCH (20:18)
--- NOTE | 2018-10-10 22:17 | NUR ---
Notified Dr. Barton that patient hasn't voided since campa was removed and bladder scan estimated 403 ml. New orders to put campa back in and start urecholine 25 mg QID AC and HS.
[2018-10-10] MEDS ORDERED: BETHANECHOL 25 MG (URECHOLINE) TAB ONE (22:32)
[2018-10-11 04:55] VITALS: BP 137/81
[2018-10-11] MEDS: inSUlin ASPART (NovoLOG) 1 UNIT/0.01 ML (CHARGE PER UNIT) SC SCH ×4 (05:40→21:08)
[2018-10-11] MEDS: KCL 10 MEQ TAB (MICRO K) PO SCH (06:50)
[2018-10-11] MEDS: MULTIVIT W/MINERALS TAB (THERAGRAN M) PO SCH (06:50)
[2018-10-11] MEDS: glyBURIDE 2.5 MG (MICRONASE) TAB PO SCH (06:50)
[2018-10-11] MEDS: BETHANECHOL 25 MG (URECHOLINE) TAB PO SCH ×4 (06:50→21:08)
[2018-10-11] MEDS: LACTOBACILLUS ACIDOPHILUS (PROBIOTIC) CAPSULE PO SCH (06:51)
[2018-10-11] MEDS: metFORMIN 500 MG (GLUCOPHAGE) TAB PO SCH ×2 (06:51→16:30)
--- NOTE | 2018-10-11 07:20 | Progress Note-Urology ---
Progress Note-Urology Progress Notes/Assess & Plan Progress/Assessment & Plan FAILED TRIAL OF VOIDING. [place] BACK IN. DETROL HELD. STARTED URECHOLINE Final Diagnosis URINE RETENTION AND INCONTINENCE OLI SMITH MD Oct 11, 2018 07:19
--- NOTE | 2018-10-11 07:28 | Occupational Ther Daily Note ---
OT Current Status-Daily Note Subjective Pt alert, lying in bed. Pt agrees to therapy. No c/o pain at this time. Mental Status/Objective Patient Orientation: Person, Place, Time, Situation Therapy Code Descriptions/Definitions Functional [place] Measure: 0=Not Assessed/NA 4=Minimal Assistance 1=Total Assistance 5=Supervision or Setup 2=Maximal Assistance 6=Modified [place] 3=Moderate Assistance 7=Complete [place] Attachments: Carson Catheter ADL-Treatment Pt continues to move slowly throughout tasks and demonstrates decreased activity tolerance. At times is self limiting and requires encouragement to finish activities to promote strength and increased activity tolerance. Does show progress physically though verbally states "if you say so". Declines shower at this time. Therapy Code Descriptions/Definitions Functional [place] Measure: 0=Not Assessed/NA 4=Minimal Assistance 1=Total Assistance 5=Supervision or Setup 2=Maximal Assistance 6=Modified [place] 3=Moderate Assistance 7=Complete [place] Therapy Quality Codes: 6 Independent with activity with or without an assistive device 5 Patient requires set up or clean up by helper. Patient completes activity by themselves 4 Supervision or touching assist (CGA). [place] provide cues , steadying assist 3 The helper provides less than half the effort to complete the activity 2 The helper provides more than half the effort to complete the activity 1 Dependent. The helper does all the effort to complete an activity 7 Patient refused to complete or attempt activity 9 The patient did not perform the activity before the current illness or injury 88 Not attempted due to Medical conditions or safety concerns Eating (FIM): 5 (Pt able to open packages. Assist to open banana peal and undo lid on bottle. Using regular utensils to eat.) Eating (QC): 5 Grooming (FIM): 6 (Sitting in w/c, pt able to complete grooming by self. Pt takes increased time due to slow movements and decreased activity tolerance.) Oral Hygiene (QC): 6 Lower Body Dressing (FIM): 2 (Assist to thread feet and LE's into pant legs and socks. Assist to stabilize in standing, pt able to hike pants over hips.) Lower Body Dressing (QC): 2 Other Treatment Pt able to ambulate from room to door of bathroom then sit in w/c. Pt transported to therapy gym via w/c. Arm bike set for 8 min with minimal resistance. Slow rotation of arm bike handles, encouraged pt to keep moving. Attempted trivia to keep pt motivated, pt just stopped arm bike. Stopped trivia and had pt continue with arm bike. After multiple breaks, pt stated she was getting tired and needed to stop. Pt had completed 4 min, per arm bike clock, with all of the breaks. Pt transported back to room via w/c then ambulated to recliner. After therapy, pt sitting in recliner with call light/ phone in reach. All needs met in room. OT Short Term Goals Short Term Goals Time Frame: Oct 17, 2018 Eating(FIM): 3 Grooming(FIM): 3 Bathing(FIM): 3 Upper Body Dressing(FIM): 4 Lower Body Dressing(FIM): 3 Toileting(FIM): 3 Transfers (B,C,W/C) (FIM): 4 Toilet/Commode Transfer(FIM): 4 Shower Transfer(FIM): 4 Additional Short Term Goals: 1-Demonstrate ADL Tasks, 2-Verbalize Understanding , 3-ImproveStrength/Shiv 1=Demonstrate adherence to instructed precautions during ADL tasks. 2=Patient will verbalize/demonstrate understanding of assistive devices/ modifications for ADL. 3=Patient will improve strength/tolerance for activity to enable patient to perform ADL's. OT Retirement Goals Automation Tech Goals Time Frame: Oct 31, 2018 Eating (FIM): 6 Eating (QC): 6 Groomin Oral Hygiene (QC): 5 Bathing(FIM): 5 Shower/Bathe Self (QC): 4 Upper Body Dressing(FIM): 5 Upper Body Dressing (QC): 5 Lower Body Dressing(FIM): 5 Lower Body Dressing (QC): 4 On/Off Footwear (QC): 4 Toileting(FIM): 6 Toileting Hygiene (QC): 6 Transfers (B,C,W/C) (FIM): 6 Toilet/Commode Transfer(FIM): 6 Toilet/Commode Transfer (QC): 6 Shower Transfer(FIM): 5 Additional Goals: 1-Demonstrate ADL Tasks, 2-Verbalize Understanding, 3- ImproveStrength/Shiv 1=Demonstrate adherence to instructed precautions during ADL tasks. 2=Patient will verbalize/demonstrate understanding of assistive devices/ modifications for ADL. 3=Patient will improve strength/tolerance for activity to enable patient to perform ADL's. OT Education/Plan Discharge Recommendations Plan/Recommendations: Continue POC Treatment Plan/Plan of Care Patient would benefit from OT for education, treatment and training to promote independence in ADL's, mobility, safety and/or upper extremity function for ADL' s. Plan of Care: ADL Retraining, Caregiver Training, Cognitive Retraining, Functional Mobility, Group Exercise/Act as Ind, UE Funct Exercise/Act Treatment Duration: Oct 31, 2018 Frequency: At least 5 of 7 days/Wk (IRF) Estimated Hrs Per Day: 1.5 hours per day Agreement: Yes Rehab Potential: Fair Time/GCodes Start Time: 07:00 Stop Time: 08:30 Total Time Billed (hr/min): 90 Billed Treatment Time 1 visit-ADL 5 (75 min) EX 1 (15 min) JORGE TERRY Oct 11, 2018 07:28
[2018-10-11] MEDS: cloNIDine 0.1 MG (CATAPRES) TAB PO SCH ×3 (09:25→21:08)
[2018-10-11] MEDS: meTOprolol TARTRATE 50 MG (LOPRESSOR) TAB PO SCH ×2 (09:25→21:08)
[2018-10-11] MEDS: FLUTICASONE NASAL SPRAY (FLONASE) 16 GM BTL NS SCH (09:25)
[2018-10-11] MEDS: METANX PO SCH ×2 (09:25→21:07)
[2018-10-11] MEDS: VITAMIN D3 1,000 UNITS (CHOLECALCIFEROL) TABLET PO SCH (09:25)
--- NOTE | 2018-10-11 11:16 | NUR ---
PT DIET ADVANCED TO MECHANICAL SOFT WITH THIN LIQUIDS. PT TIRES VERY QUICKLY WHILE EATING. PT EATING 49% MEALS, BUT WEIGHT IS DOWN. CONTINUE ENLIVE TID TO INCREASE KCAL AND PROTEIN. CONTINUE TO ASSIST PT WITH FEEDING TO INCREASE PO INTAKE.
[2018-10-11] MEDS: ASCORBIC ACID (VIT C) 500 MG TABLET PO SCH (11:35)
[2018-10-11] MEDS: LOSARTAN 50 MG (COZAAR) TAB PO SCH (11:35)
[2018-10-11] MEDS: MAGNESIUM 100 MG PO SCH (11:36)
--- NOTE | 2018-10-11 12:13 | Physical Therapy Daily Note ---
PT Daily Note-Current Subjective Pt L sidelying upon arrival. Pt agrees to PT. Pain Numeric Pain Scale: 7 Location: Dorsal Location Body Site: Sacrum Pain Description: Ache Mental Status Patient Orientation: Person, Place Transfers Therapy Code Descriptions/Definitions Functional [place] Measure: 0=Not Assessed/NA 4=Minimal Assistance 1=Total Assistance 5=Supervision or Setup 2=Maximal Assistance 6=Modified [place] 3=Moderate Assistance 7=Complete [place] Therapy Quality Codes: 6 Independent with activity with or without an assistive device 5 Patient requires set up or clean up by helper. Patient completes activity by themselves 4 Supervision or touching assist (CGA). [place] provide cues , steadying assist 3 The helper provides less than half the effort to complete the activity 2 The helper provides more than half the effort to complete the activity 1 Dependent. The helper does all the effort to complete an activity 7 Patient refused to complete or attempt activity 9 The patient did not perform the activity before the current illness or injury 88 Not attempted due to Medical conditions or safety concerns Scootin Rollin Roll Left to Right (QC): 2 Supine to/from Sit: 2 Sit to/from Stand: 2 Sit to Stand (QC): 2 Weight Bearing Right Lower Extremity: Right Full Weight Bearing Left Lower Extremity: Left Full Weight Bearing Gait Training Distance (FIM): 1=up to 49 ft Distance: 10' Walk 10 feet (QC): 3 Gait Level of Assist: 3 Gait Persons Needed: 1 Gait Assistive Device: FWW Pt needs VC for hand placement & sequencing. Exercises Seated Therapy Exercises: Ankle pumps, Long arc quads, Hip flexion, Kicking activity Seated Reps: 15 (2 sets of 15 reps) Treatments Pt transfers from L sidelying to EOB to standing using FWW at Mod A. Pt transfers to recliner to rest. DRUG ABUSE RESISTANCE EDUCATION OFFICER assists pt with repositioning. Pt completes Seated Ex with rest breaks. Pt transfers from recliner to BSC to try for BM. Pt has call light because pt said it might be a while and needed some privacy. Assessment Current Status: Fair Progress Pt fatigues easily and needs frequent rest breaks. PT Short Term Goals Short Term Goals Time Frame: Oct 17, 2018 Transfers (B,C,W/C) (FIM): 4 Gait (FIM): 2 Distance (FIM): 0=820-34 ft Gait Distance Comment: 50 ft Gait Level of Assist: 4 Gait Assistive Device: FWW Wheelchair Distance: 0 feet Stairs (FIM): 2 # of Steps: 1 PT Agent Broker Goals Group Home Goals PT Group Home Goals Time Frame: Oct 31, 2018 Transfers (B,C,W/C) (FIM): 6 Sit to Lying (QC): 6 Lying-Sitting on Side/Bed(QC): 6 Sit to Stand (QC): 6 Rollin Roll Left to Right (QC): 6 Chair/Dsl-bl-Xcspn Xfer(QC): 6 Car Transfer (QC): 5 Does the Patient Walk: No and Walking Goal IS indicated Gait (FIM): 6 Gait distance (FIM): 3=150 ft Walk 10 feet (QC): 6 Walk 10ft-Uneven Surface(QC): 5 Walk 50ft with 2 Turns (QC): 6 Walk 150 ft (QC): 6 Gait Level of Assist: 6 Gait Assistive Device: FWW Does the Pt use WC or Scooter?: Yes Wheelchair (FIM): 6 Wheelchair distance (FIM): 3=150 ft Wheel 50 feet with 2 turns (QC: 6 Stairs (FIM): 5 # of Steps: 4 1 Step (curb) (QC): 6 4 Steps (QC): 6 12 Steps (QC): 88 Picking up an Object (QC): 4 PT Plan Problem List Problem List: Activity Tolerance, Functional Strength, Safety, Balance, Gait, Transfer, Bed Mobility Treatment/Plan Treatment Plan: Continue Plan of Care Treatment Plan: Bed Mobility, Education, Functional Activity Shiv, Functional Strength, Group Therapy, Gait, Safety, Therapeutic Exercise, Transfers Treatment Duration: Oct 31, 2018 Frequency: At least 5 of 7 days/Wk (IRF) Estimated Hrs Per Day: 1.5 hours per day Patient and/or Family Agrees t: Yes Safety Risks/Education Patient Education: Gait Training, Transfer Techniques, Correct Positioning, Safety Issues Teaching Recipient: Patient Teaching Methods: Discussion Response to Teaching: Reinforcement Needed Time/GCodes Time In: 1000 Time Out: 1100 Total Billed Treatment Time: 60 Total Billed Treatment 1, FA x2 (30m) & EX x2 (30m) G Codes Necessary: No SABA STEINBERG DRUG ABUSE RESISTANCE EDUCATION OFFICER Oct 11, 2018 12:13
--- NOTE | 2018-10-11 14:20 | Speech Therapy Daily Note ---
Speech Daily Progress Note Subjective Date Seen by Provider: Oct 11, 2018 Time Seen by Provider: 00:30 Patient was resting when I entered her room. Her was present for the session Objective Patient was able to engage in simple conversational tasks with minimal cues. Treatment Plan Continue Plan of Care Communication Comprehension: 4 Expression: 4 Social Cognition Social Interaction: 3 Problem Solvin Memory: 3 Speech Short Term Goals Short Term Goals Short Term Goals 1) Patient will use appropriate linguistic forms to communicate in everyday situations, with 90% or greater accuracy. 2) Patient will identify functions of common items, with 90% or greater accuracy. 3) Patient will express her wants/needs effectively with 90% accuracy. Speech [facility]iary Goals Drafter Chief Design Goals Patient will be able to effectively communicate within her immediate living environment at 90%. Speech-Plan Patient/Family Goals Patient/Family Goals: Patient will return home with her post rehab. Treatment Plan Speech Therapy Treatment Plan: Continue Plan of Care Patient is progressing well with all goals due to skilled therapy. Treatment Duration: Oct 17, 2018 Frequency: 5 times per week Estimated Hrs Per Day: .5 hour per day Rehab Potential: Fair Barriers to Learning: Patient tires very easily. Pt/Family Agrees to Plan: Yes Safety Risks/Education Teaching Recipient: Patient, Significant Other Teaching Methods: Discussion Response to Teaching: Verbalize Understanding Education Topics Provided: Safety Time Speech Therapy Time In: 13:30 Speech Therapy Time Out: 14:00 Total Billed Time: 30 Billed Treatment Time 1KEREN BETH[address] Oct 11, 2018 14:20
--- NOTE | 2018-10-11 15:50 | Physical Therapy Daily Note ---
PT Daily Note-Current Subjective Pt sitting in recliner visiting with Sp upon arrival. Pt agrees to PT but asks to be transferred back to bed. Pain Numeric Pain Scale: 4 Location Body Site: Sacrum Pain Description: Ache, Dull Mental Status Patient Orientation: Person, Confused Transfers Therapy Code Descriptions/Definitions Functional [place] Measure: 0=Not Assessed/NA 4=Minimal Assistance 1=Total Assistance 5=Supervision or Setup 2=Maximal Assistance 6=Modified [place] 3=Moderate Assistance 7=Complete [place] Therapy Quality Codes: 6 Independent with activity with or without an assistive device 5 Patient requires set up or clean up by helper. Patient completes activity by themselves 4 Supervision or touching assist (CGA). [place] provide cues , steadying assist 3 The helper provides less than half the effort to complete the activity 2 The helper provides more than half the effort to complete the activity 1 Dependent. The helper does all the effort to complete an activity 7 Patient refused to complete or attempt activity 9 The patient did not perform the activity before the current illness or injury 88 Not attempted due to Medical conditions or safety concerns Scootin Rollin Roll Left to Right (QC): 3 Supine to/from Sit: 3 Sit to/from Stand: 3 Sit to Lying (QC): 3 Sit to Stand (QC): 3 Chair/Zvm-jz-Zdxvn Xfer(QC): 3 Bed to/from Chair: 3 Weight Bearing Right Lower Extremity: Right Full Weight Bearing Left Lower Extremity: Left Full Weight Bearing Gait Training Does the Patient Walk?: Yes Distance (FIM): 1=up to 49 ft Distance: 5' Gait Level of Assist: 3 Gait Persons Needed: 1 Gait Assistive Device: FWW Pt needs VC for hand placement & sequencing. Treatments GRADUATE NURSE assists pt with transfer from recliner to standing at Min A then L sidelying in bed. GRADUATE NURSE assists with repositioning. Pt resting with all needs met. Assessment Current Status: Fair Progress Pt fatigues easily. PT Short Term Goals Short Term Goals Time Frame: Oct 17, 2018 Transfers (B,C,W/C) (FIM): 4 Gait (FIM): 2 Distance (FIM): 2=557-23 ft Gait Distance Comment: 50 ft Gait Level of Assist: 4 Gait Assistive Device: FWW Wheelchair Distance: 0 feet Stairs (FIM): 2 # of Steps: 1 PT Security Shift Manager Goals Retirement Goals PT Retirement Goals Time Frame: Oct 31, 2018 Transfers (B,C,W/C) (FIM): 6 Sit to Lying (QC): 6 Lying-Sitting on Side/Bed(QC): 6 Sit to Stand (QC): 6 Rollin Roll Left to Right (QC): 6 Chair/Ozd-kk-Nfeaq Xfer(QC): 6 Car Transfer (QC): 5 Does the Patient Walk: No and Walking Goal IS indicated Gait (FIM): 6 Gait distance (FIM): 3=150 ft Walk 10 feet (QC): 6 Walk 10ft-Uneven Surface(QC): 5 Walk 50ft with 2 Turns (QC): 6 Walk 150 ft (QC): 6 Gait Level of Assist: 6 Gait Assistive Device: FWW Does the Pt use WC or Scooter?: Yes Wheelchair (FIM): 6 Wheelchair distance (FIM): 3=150 ft Wheel 50 feet with 2 turns (QC: 6 Stairs (FIM): 5 # of Steps: 4 1 Step (curb) (QC): 6 4 Steps (QC): 6 12 Steps (QC): 88 Picking up an Object (QC): 4 PT Plan Problem List Problem List: Activity Tolerance, Functional Strength, Safety, Balance, Gait, Transfer, Bed Mobility Treatment/Plan Treatment Plan: Continue Plan of Care Treatment Plan: Bed Mobility, Education, Functional Activity Shiv, Functional Strength, Group Therapy, Gait, Safety, Therapeutic Exercise, Transfers Treatment Duration: Oct 31, 2018 Frequency: At least 5 of 7 days/Wk (IRF) Estimated Hrs Per Day: 1.5 hours per day Patient and/or Family Agrees t: Yes Safety Risks/Education Patient Education: Gait Training, Transfer Techniques, Correct Positioning, Safety Issues Teaching Recipient: Patient Teaching Methods: Discussion Response to Teaching: Reinforcement Needed Time/GCodes Time In: 1315 Time Out: 1330 Total Billed Treatment Time: 15 Total Billed Treatment 1, FA (15m) G Codes Necessary: SABA Polanco PTA Oct 11, 2018 15:49
[2018-10-11 17:15] VITALS: BP 158/88
[2018-10-11] MEDS: glyBURIDE 5 MG (MICRONASE) TAB PO SCH (17:15)
--- NOTE | 2018-10-11 20:17 | PM&R Progress Note ---
Subjective This was a face to face visit with the patient. Date Seen by Provider: Oct 11, 2018 Time Seen by Provider: 08:00 Subjective/Events-last exam Patient was seen in her room this AM Patient mod assist for transfers Appreciate DR Guzman note and orders Objective Physician Exam Last Set of Vital Signs Vital Signs Date Time Temp Pulse Resp B/P (MAP) Pulse Ox O2 Delivery O2 Flow Rate FiO2 10/11/18 17:15 98.0 67 18 158/88 (111) 97 Room Air Capillary Refill : I&O Intake and Output 10/11/18 00:00 Intake Total 777 ml Output Total 1425 ml Balance -648 ml Intake Oral 777 ml Output Urine Total 1425 ml Bladder Scan Volume Amount 152 ml 403 ml General: Alert, Oriented X3, Cooperative, No Acute Distress HEENT: Atraumatic, PERRLA, EOMI, Mucous Memb Moist/[place], Other (dysphagia) Neck: Supple, No JVD Lungs: Clear to Auscultation Heart: Regular Rate Abdomen: Normal Bowel Sounds, Soft, No Tenderness Extremities: No Edema Skin: No Rashes, No Breakdown, Other ([place] just d/cd for TOV) Neuro: Other (Strength 2 to 2+/5 Ble except Rt dorsiflexion 1/5 Weakness in both upper limbs as well) Results Lab Data Laboratory Tests 10/09/18 04:54: Glucometer 95 10/09/18 10:59: Glucometer 200H 10/09/18 15:20: Glucometer 194H 10/09/18 21:03: Glucometer 181H 10/10/18 04:36: Glucometer 111H 10/10/18 11:14: Glucometer 183H 10/10/18 16:03: Glucometer 212H 10/10/18 20:22: Glucometer 136H 10/11/18 05:16: Glucometer 115H 10/11/18 10:53: Glucometer 153H 10/11/18 16:03: Glucometer 153H Microbiology 10/04/18 C. difficile GDH Antigen & Toxins - Final, Complete Assessment/Plan Assessment and Plan MS exacerbation s/p course of IV steroids OSH Dysphagia on modified diet Urinary retention TOV HTN controlled with med DM with hypoglycemia improved with adjustment of Insulin HLP followed by Endo in [place] Anxiety Plan Continue PT/OT/ST Team Conference tomorrow F/U with DR juana beyer Monitor for urinary retention Co-Morbidities that are continuing to impact the rehab process: (include details ) SHARA MITCHELL MD Oct 11, 2018 20:16
[2018-10-11] MEDS: inSUlin DETERMIR 1 UNIT/0.01 ML (LEVEMIR) CHARGE PER UNIT SQ SCH (21:08)
[2018-10-11] MEDS: ASPIRIN E.C. 81 MG (ECOTRIN) TAB PO SCH (21:08)
[2018-10-11] MEDS: ALPRAZolam 0.25 MG (XANAX) TAB PO PRN (21:08)
[2018-10-12 03:22] VITALS: BP 159/87
[2018-10-12] MEDS: MULTIVIT W/MINERALS TAB (THERAGRAN M) PO SCH (06:31)
[2018-10-12] MEDS: LACTOBACILLUS ACIDOPHILUS (PROBIOTIC) CAPSULE PO SCH (06:31)
[2018-10-12] MEDS: metFORMIN 500 MG (GLUCOPHAGE) TAB PO SCH ×2 (06:31→16:53)
[2018-10-12] MEDS: KCL 10 MEQ TAB (MICRO K) PO SCH (06:32)
[2018-10-12] MEDS: BETHANECHOL 25 MG (URECHOLINE) TAB PO SCH ×4 (06:32→21:13)
[2018-10-12] MEDS: inSUlin ASPART (NovoLOG) 1 UNIT/0.01 ML (CHARGE PER UNIT) SC SCH ×4 (06:32→21:36)
[2018-10-12] MEDS: glyBURIDE 2.5 MG (MICRONASE) TAB PO SCH (06:32)
--- NOTE | 2018-10-12 07:25 | Occupational Ther Daily Note ---
OT Current Status-Daily Note Subjective Pt alert, sitting up in bed eating breakfast. Pt agrees to therapy. C/o that she was unable to sleep last night and is tired today. Mental Status/Objective Patient Orientation: Person, Place, Time, Situation Therapy Code Descriptions/Definitions Functional [place] Measure: 0=Not Assessed/NA 4=Minimal Assistance 1=Total Assistance 5=Supervision or Setup 2=Maximal Assistance 6=Modified [place] 3=Moderate Assistance 7=Complete [place] Attachments: [place] Catheter ADL-Treatment Pt requested to not have shower today since it tired her out. Encouraged pt to take shower discussing that it would help to relax and also increase activity tolerance that she needed to get better. When asked pt how much she wanted to do she stated "As little as possible since I couldn't sleep last night". Pt takes increased time to complete tasks due to self limiting behavior and decreased activity tolerance. Therapy Code Descriptions/Definitions Functional [place] Measure: 0=Not Assessed/NA 4=Minimal Assistance 1=Total Assistance 5=Supervision or Setup 2=Maximal Assistance 6=Modified [place] 3=Moderate Assistance 7=Complete [place] Therapy Quality Codes: 6 Independent with activity with or without an assistive device 5 Patient requires set up or clean up by helper. Patient completes activity by themselves 4 Supervision or touching assist (CGA). [place] provide cues , steadying assist 3 The helper provides less than half the effort to complete the activity 2 The helper provides more than half the effort to complete the activity 1 Dependent. The helper does all the effort to complete an activity 7 Patient refused to complete or attempt activity 9 The patient did not perform the activity before the current illness or injury 88 Not attempted due to Medical conditions or safety concerns Eating (FIM): 5 (Assist to open banana and protein drink. Pt uses regular utensils to eat.) Eating (QC): 5 Grooming (FIM): 6 (Sitting in w/c pt able to complete by self.) Oral Hygiene (QC): 6 Bathing (FIM): 3 (Pt able to hold wash cloth, but assist to adjust temperature and apply soap to cloth. Verbal cues to wash areas. Pt c/o back pain during shower then when instructed to lean on seat back pain decreases. Standing while holding onto grabbars and assist to cleanse buttocks.) Bathing Location: L Arm, R Arm, L Upper Leg, R Upper Leg, Chest, Abdomen, Perineal Area Shower/Bathe Self (QC): 3 Upper Body (FIM): 2 (Assist to thread arms off/on with button up shirt. Assist to pull down in [place] and button shirt.) Upper Body Dressing (QC): 2 Lower Body Dressing (FIM): 2 (Assist to complete donning/doffing lower body clothing. Pt c/o fatigue and unable to hike pants over hips.) Lower Body Dressing (QC): 2 On/Off Footwear (QC): 2 Transfers (B, C, W/C) (FIM): 3 (Pt ambulated to bathroom with FWW and min A to mod A due to manipulation of walker and verbal cues to move feet. Pt fatigues quickly and will start to sit down prior to getting to surface. ) Shower Transfer(FIM): 4 (Using w/c, grabbar and shower seat pt able to complete with min A.) After therapy, pt lying in bed with call light/phone in reach. All needs met in room. OT Short Term Goals Short Term Goals Time Frame: Oct 17, 2018 Eating(FIM): 3 Grooming(FIM): 3 Bathing(FIM): 3 Upper Body Dressing(FIM): 4 Lower Body Dressing(FIM): 3 Toileting(FIM): 3 Transfers (B,C,W/C) (FIM): 4 Toilet/Commode Transfer(FIM): 4 Shower Transfer(FIM): 4 Additional Short Term Goals: 1-Demonstrate ADL Tasks, 2-Verbalize Understanding , 3-ImproveStrength/Shiv 1=Demonstrate adherence to instructed precautions during ADL tasks. 2=Patient will verbalize/demonstrate understanding of assistive devices/ modifications for ADL. 3=Patient will improve strength/tolerance for activity to enable patient to perform ADL's. OT Missile Facilities Repairer Goals Shelter Goals Time Frame: Oct 31, 2018 Eating (FIM): 6 Eating (QC): 6 Groomin Oral Hygiene (QC): 5 Bathing(FIM): 5 Shower/Bathe Self (QC): 4 Upper Body Dressing(FIM): 5 Upper Body Dressing (QC): 5 Lower Body Dressing(FIM): 5 Lower Body Dressing (QC): 4 On/Off Footwear (QC): 4 Toileting(FIM): 6 Toileting Hygiene (QC): 6 Transfers (B,C,W/C) (FIM): 6 Toilet/Commode Transfer(FIM): 6 Toilet/Commode Transfer (QC): 6 Shower Transfer(FIM): 5 Additional Goals: 1-Demonstrate ADL Tasks, 2-Verbalize Understanding, 3- ImproveStrength/Shiv 1=Demonstrate adherence to instructed precautions during ADL tasks. 2=Patient will verbalize/demonstrate understanding of assistive devices/ modifications for ADL. 3=Patient will improve strength/tolerance for activity to enable patient to perform ADL's. OT Education/Plan Discharge Recommendations Plan/Recommendations: Continue POC Treatment Plan/Plan of Care Patient would benefit from OT for education, treatment and training to promote independence in ADL's, mobility, safety and/or upper extremity function for ADL' s. Plan of Care: ADL Retraining, Caregiver Training, Cognitive Retraining, Functional Mobility, Group Exercise/Act as Ind, UE Funct Exercise/Act Treatment Duration: Oct 31, 2018 Frequency: At least 5 of 7 days/Wk (IRF) Estimated Hrs Per Day: 1.5 hours per day Agreement: Yes Rehab Potential: Fair Time/GCodes Start Time: 07:00 Stop Time: 08:30 Total Time Billed (hr/min): 90 Billed Treatment Time 1 visit-ADL 6 (90 min) JROGE TERRY Oct 12, 2018 07:25
[2018-10-12] MEDS: meTOprolol TARTRATE 50 MG (LOPRESSOR) TAB PO SCH ×2 (08:19→21:13)
[2018-10-12] MEDS: cloNIDine 0.1 MG (CATAPRES) TAB PO SCH ×3 (08:19→21:13)
[2018-10-12] MEDS: VITAMIN D3 1,000 UNITS (CHOLECALCIFEROL) TABLET PO SCH (08:19)
[2018-10-12] MEDS: FLUTICASONE NASAL SPRAY (FLONASE) 16 GM BTL NS SCH (08:28)
[2018-10-12] MEDS: METANX PO SCH ×2 (08:28→21:14)
--- NOTE | 2018-10-12 09:34 | Speech Therapy Daily Note ---
Speech Daily Progress Note Subjective Date Seen by Provider: Oct 12, 2018 Time Seen by Provider: 00:30 Patient was resting in her bed this am following the OT session and having a shower. Objective Patient completed memory tasks related to her daily needs and safety with 85% accuracy given decreased verbal cues. Assessment Assessment Current Status: Good Progress Treatment Plan Continue Plan of Care Communication Comprehension: 4 Expression: 4 Social Cognition Social Interaction: 3 Problem Solvin Memory: 3 Speech Short Term Goals Short Term Goals Short Term Goals 1) Patient will use appropriate linguistic forms to communicate in everyday situations, with 90% or greater accuracy. 2) Patient will identify functions of common items, with 90% or greater accuracy. 3) Patient will express her wants/needs effectively with 90% accuracy. Speech Practice Clinician Goals [place] Goals Patient will be able to effectively communicate within her immediate living environment at 90%. Speech-Plan Patient/Family Goals Patient/Family Goals: Patient plans to return home with her following rehab. Treatment Plan Speech Therapy Treatment Plan: Continue Plan of Care Patient is progressing with her goals as she is getting stronger. Treatment Duration: Oct 17, 2018 Frequency: 5 times per week Estimated Hrs Per Day: .5 hour per day Rehab Potential: Fair Barriers to Learning: Patient tires very easily. Patient requires frequent cues for daily tasks. Pt/Family Agrees to Plan: Yes Safety Risks/Education Teaching Recipient: Patient Teaching Methods: Discussion Response to Teaching: Verbalize Understanding Education Topics Provided: Safety and sequencing. Time Speech Therapy Time In: 08:45 Speech Therapy Time Out: 09:15 Total Billed Time: 30 Billed Treatment Time 1KEREN [address] Oct 12, 2018 09:33
--- NOTE | 2018-10-12 09:44 | Progress Note-Urology ---
Progress Note-Urology Progress Notes/Assess & Plan Progress/Assessment & Plan TOLERATED URECHOLINE WELL. TOV TODAY Final Diagnosis URINE RETENTION OLI SMITH MD Oct 12, 2018 09:44
--- NOTE | 2018-10-12 11:14 | Physical Therapy Daily Note ---
PT Daily Note-Current Subjective Pt laying in bed upon arrival. Pt agrees to PT. Pt reports feeling very tired and needs to use BSC for BM. Mental Status Patient Orientation: Person, Place Attachments: [place] Catheter Transfers Therapy Code Descriptions/Definitions Functional [place] Measure: 0=Not Assessed/NA 4=Minimal Assistance 1=Total Assistance 5=Supervision or Setup 2=Maximal Assistance 6=Modified [place] 3=Moderate Assistance 7=Complete [place] Therapy Quality Codes: 6 Independent with activity with or without an assistive device 5 Patient requires set up or clean up by helper. Patient completes activity by themselves 4 Supervision or touching assist (CGA). [place] provide cues , steadying assist 3 The helper provides less than half the effort to complete the activity 2 The helper provides more than half the effort to complete the activity 1 Dependent. The helper does all the effort to complete an activity 7 Patient refused to complete or attempt activity 9 The patient did not perform the activity before the current illness or injury 88 Not attempted due to Medical conditions or safety concerns Scootin Rollin Roll Left to Right (QC): 2 Supine to/from Sit: 2 Sit to/from Stand: 2 Sit to Lying (QC): 2 Sit to Stand (QC): 2 Weight Bearing Right Lower Extremity: Right Full Weight Bearing Left Lower Extremity: Left Full Weight Bearing Gait Training Distance (FIM): 1=up to 49 ft Distance: 10' Walk 10 feet (QC): 2 Gait Level of Assist: 2 Gait Persons Needed: 1 Gait Assistive Device: FWW Pt fatigues quickly and needs VC for hand placement & sequencing. Exercises Seated Therapy Exercises: Sit to stand Treatments Pt transfers from Supine to EOB using bed rails and CAPPER MACHINE OPERATOR assists at Mod A. Pt transfers from EOB to Standing using FWW at Mod A. Pt ambulates to BS for BM. After lengthy time, pt completes multiple sit to stands to assist with pericare & Wound Care Nurse inspection. Pt transfers to recliner and CAPPER MACHINE OPERATOR assists with repositioning. Pt has all needs met at end of tx. Assessment Current Status: Poor Progress Pt is very weak and fatigues easily today. Pt reports not sleeping well. Pt preoccupied with [place] being removed later today. PT Short Term Goals Short Term Goals Time Frame: Oct 17, 2018 Transfers (B,C,W/C) (FIM): 4 Gait (FIM): 2 Distance (FIM): 4=508-36 ft Gait Distance Comment: 50 ft Gait Level of Assist: 4 Gait Assistive Device: FWW Wheelchair Distance: 0 feet Stairs (FIM): 2 # of Steps: 1 PT Disc Jockey Goals Disc Jockey Goals PT Disc Jockey Goals Time Frame: Oct 31, 2018 Transfers (B,C,W/C) (FIM): 6 Sit to Lying (QC): 6 Lying-Sitting on Side/Bed(QC): 6 Sit to Stand (QC): 6 Rollin Roll Left to Right (QC): 6 Chair/Wfe-xl-Ctqfc Xfer(QC): 6 Car Transfer (QC): 5 Does the Patient Walk: No and Walking Goal IS indicated Gait (FIM): 6 Gait distance (FIM): 3=150 ft Walk 10 feet (QC): 6 Walk 10ft-Uneven Surface(QC): 5 Walk 50ft with 2 Turns (QC): 6 Walk 150 ft (QC): 6 Gait Level of Assist: 6 Gait Assistive Device: FWW Does the Pt use WC or Scooter?: Yes Wheelchair (FIM): 6 Wheelchair distance (FIM): 3=150 ft Wheel 50 feet with 2 turns (QC: 6 Stairs (FIM): 5 # of Steps: 4 1 Step (curb) (QC): 6 4 Steps (QC): 6 12 Steps (QC): 88 Picking up an Object (QC): 4 PT Plan Problem List Problem List: Activity Tolerance, Functional Strength, Safety, Balance, Gait, Transfer, Bed Mobility Treatment/Plan Treatment Plan: Continue Plan of Care Treatment Plan: Bed Mobility, Education, Functional Activity Shiv, Functional Strength, Group Therapy, Gait, Safety, Therapeutic Exercise, Transfers Treatment Duration: Oct 31, 2018 Frequency: At least 5 of 7 days/Wk (IRF) Estimated Hrs Per Day: 1.5 hours per day Patient and/or Family Agrees t: Yes Safety Risks/Education Patient Education: Gait Training, Transfer Techniques, Correct Positioning, Safety Issues Teaching Recipient: Patient, Significant Other Teaching Methods: Discussion Response to Teaching: Verbalize Understanding, Reinforcement Needed Time/GCodes Time In: 1000 Time Out: 1100 Total Billed Treatment Time: 60 Total Billed Treatment 1, FA x4 (60m) G Codes Necessary: No SABA STEINBERG PTA Oct 12, 2018 11:14
[2018-10-12] MEDS: LOSARTAN 50 MG (COZAAR) TAB PO SCH (11:49)
[2018-10-12] MEDS: ASCORBIC ACID (VIT C) 500 MG TABLET PO SCH (11:49)
[2018-10-12] MEDS: [UNRECOGNIZED DRUG - OTHER] PO SCH (11:50)
--- NOTE | 2018-10-12 16:38 | NUR ---
VETERINARY MEAT INSPECTOR met with patient to discuss team conference summary. Therapy has concerns of patients lack of motivation and lack of self initiation. VETERINARY MEAT INSPECTOR has recommended a family conference to determine how to proceed, as patient has made very little progress within the past week and a half in ARU. Patient believes her lack of motivation is due to lack of good sleep at night. Patient is agreeable for VETERINARY MEAT INSPECTOR to speak with Dr. Brown to request sleep aide. VETERINARY MEAT INSPECTOR also explained criteria of remaining in rehab, she expressed understanding of the need to self initiate and push through fatigue. Patient does admit to lack of motivation and is aware of self limitations. Patient would like to attempt further efforts, rather than have a family conference. VETERINARY MEAT INSPECTOR will observe other the next few days to monitor progress and willingness to work. VETERINARY MEAT INSPECTOR did convey the alternative recommendation of SNF, if patient is not able to progress/tolerate. Patient does not wish to have spouse provide total care for her. VETERINARY MEAT INSPECTOR will follow for additional discharge needs.
[2018-10-12] MEDS: glyBURIDE 5 MG (MICRONASE) TAB PO SCH (16:53)
[2018-10-12 17:59] VITALS: BP 162/79
--- NOTE | 2018-10-12 20:29 | PM&R Progress Note ---
Subjective This was a face to face visit with the patient. Date Seen by Provider: Oct 12, 2018 Time Seen by Provider: 08:00 Subjective/Events-last exam Patient was seen in her room this AM Patient Mod assist for transfers C/O insomnia doesnt want xanax-will try low dose Trazodone which is good for sleep and depression and affect is somewhat flat Date Identified: Oct 12, 2018 Time Identified: 20:00 Medication Intervention: Trazodone for insomnia and depression Review of Systems General: Fatigue, Other (insomnia) Neurological: Weakness Objective Physician Exam Last Set of Vital Signs Vital Signs Date Time Temp Pulse Resp B/P (MAP) Pulse Ox O2 Delivery O2 Flow Rate FiO2 10/12/18 17:59 98.8 72 18 162/79 (106) 96 Room Air Capillary Refill : I&O Intake and Output 10/12/18 00:00 Intake Total 780 ml Output Total 1600 ml Balance -820 ml Intake Oral 780 ml Output Urine Total 1600 ml # Bowel Movements 1 General: Alert, Oriented X3, Cooperative, No Acute Distress HEENT: Atraumatic, PERRLA, EOMI, Mucous Memb Moist/[place], Other (dysphagia) Neck: Supple, No JVD Lungs: Clear to Auscultation Heart: Regular Rate Abdomen: Normal Bowel Sounds, Soft, No Tenderness Extremities: No Edema Skin: No Rashes, No Breakdown, Other (Carson meghan d/cd for TOV) Neuro: Other (Strength 2 to 2+/5 Ble except Rt dorsiflexion 1/5 Weakness in both upper limbs as well) Results Lab Data Laboratory Tests 10/09/18 21:03: Glucometer 181H 10/10/18 04:36: Glucometer 111H 10/10/18 11:14: Glucometer 183H 10/10/18 16:03: Glucometer 212H 10/10/18 20:22: Glucometer 136H 10/11/18 05:16: Glucometer 115H 10/11/18 10:53: Glucometer 153H 10/11/18 16:03: Glucometer 153H 10/11/18 21:07: Glucometer 194H 10/12/18 06:07: Glucometer 78 10/12/18 11:42: Glucometer 154H 10/12/18 16:34: Glucometer 181H Microbiology 10/04/18 C. difficile GDH Antigen & Toxins - Final, Complete Assessment/Plan Assessment and Plan MS exacrebation s/p course of IV steroids OSH Dysphagia improving on mechanical soft solids and thin liquids Urinary retention to have another tov HTN controlled with med DM with hypoglycemia bottomed out again this am but not as severely may need to adjust HS dose insulin again HLP followed by Endo in [place] Insomnia Depression Trazodone for both this and above see orders Plan Continue PT/OT/ST Trial of low dose Trazodone for above see orders Team Conference held earlier today-see report for full functional update and POC and ELOS Co-Morbidities that are continuing to impact the rehab process: (include details ) SHARA MITCHELL MD Oct 12, 2018 20:29
[2018-10-12] MEDS ORDERED: traZODone 50 MG (DESYREL) TAB PO SCH (21:00)
[2018-10-12] MEDS: inSUlin DETERMIR 1 UNIT/0.01 ML (LEVEMIR) CHARGE PER UNIT SQ SCH (21:12)
[2018-10-12] MEDS: ALPRAZolam 0.25 MG (XANAX) TAB PO PRN (21:13)
[2018-10-12] MEDS: ASPIRIN E.C. 81 MG (ECOTRIN) TAB PO SCH (21:13)
--- NOTE | 2018-10-12 21:30 | NUR ---
Patient refused to take trazodone at bedtime. Patient stated that "I have had reactions to drugs before and I am afraid I will have a reaction." Patient took PRN Xanax instead.
[2018-10-13 04:11] VITALS: BP 143/86
[2018-10-13] MEDS: KCL 10 MEQ TAB (MICRO K) PO SCH (06:27)
[2018-10-13] MEDS: glyBURIDE 2.5 MG (MICRONASE) TAB PO SCH (06:27)
[2018-10-13] MEDS: BETHANECHOL 25 MG (URECHOLINE) TAB PO SCH ×5 (06:27→20:53)
[2018-10-13] MEDS: LACTOBACILLUS ACIDOPHILUS (PROBIOTIC) CAPSULE PO SCH (06:27)
[2018-10-13] MEDS: MULTIVIT W/MINERALS TAB (THERAGRAN M) PO SCH (06:27)
[2018-10-13] MEDS: metFORMIN 500 MG (GLUCOPHAGE) TAB PO SCH ×2 (06:27→17:12)
[2018-10-13] MEDS: inSUlin ASPART (NovoLOG) 1 UNIT/0.01 ML (CHARGE PER UNIT) SC SCH ×4 (06:27→20:53)
--- NOTE | 2018-10-13 08:25 | Occupational Ther Daily Note ---
OT Current Status-Daily Note Subjective Pt alert, lying in bed. Pt agrees to therapy. No c/o pain at this time. Carson d/c'd last night. Pt anxious about being incontinent. Nrsg and BLOUNT encouraged pt that it was okay and it will take time for her bladder to adjust. Mental Status/Objective Patient Orientation: Person, Place, Time, Situation Therapy Code Descriptions/Definitions Functional [place] Measure: 0=Not Assessed/NA 4=Minimal Assistance 1=Total Assistance 5=Supervision or Setup 2=Maximal Assistance 6=Modified [place] 3=Moderate Assistance 7=Complete [place] ADL-Treatment Pt declined shower today. Breakfast delivered to pt. Pt wanted to change clothing and use BSC. Mod A for supine to sitting EOB. Mod A for transfer from bed to BSC with dancing transfer. Pt able to stand with CGA and hike pants over hips. Pt was able to cleanse self on toilet. Assist to change lower body clothing and assist to hike pants over hips. Assist to unbutton shirt and remove then pt able to thread arms into pullover shirt then assist to basting puller head, assist to pull down back. Pt then transferred to chair and began breakfast. Pt able to open sugar packets, unscrew loosened lid, loosened milk container and partially opened cereal packet. Used regular utensils to eat with. Pt then requested to use BSC again. Due to fatigue pt required increased assist to hike pants over hips. Pt able to cleanse self sitting on toilet. Assist to change briefs and hike pants over hips. Pt required encouragement to stand tall for transfer. Pt takes increased time to complete all tasks due to decreased activity tolerance and slow movements. After therapy , pt sitting in recliner finishing breakfast nrsg and physicians checking on pt and pt making phone call to . Call light/phone in reach. All needs met in room. Therapy Code Descriptions/Definitions Functional [place] Measure: 0=Not Assessed/NA 4=Minimal Assistance 1=Total Assistance 5=Supervision or Setup 2=Maximal Assistance 6=Modified [place] 3=Moderate Assistance 7=Complete [place] Therapy Quality Codes: 6 Independent with activity with or without an assistive device 5 Patient requires set up or clean up by helper. Patient completes activity by themselves 4 Supervision or touching assist (CGA). [place] provide cues , steadying assist 3 The helper provides less than half the effort to complete the activity 2 The helper provides more than half the effort to complete the activity 1 Dependent. The helper does all the effort to complete an activity 7 Patient refused to complete or attempt activity 9 The patient did not perform the activity before the current illness or injury 88 Not attempted due to Medical conditions or safety concerns Eating (FIM): 5 Eating (QC): 5 Upper Body (FIM): 3 Upper Body Dressing (QC): 3 Lower Body Dressing (FIM): 2 Lower Body Dressing (QC): 2 On/Off Footwear (QC): 2 Toileting (FIM): 3 Toileting Hygiene (QC): 3 Transfers (B, C, W/C) (FIM): 3 Toilet/Commode Transfer (FIM): 3 Toilet Transfer (QC): 3 OT Short Term Goals Short Term Goals Time Frame: Oct 17, 2018 Eating(FIM): 3 Grooming(FIM): 3 Bathing(FIM): 3 Upper Body Dressing(FIM): 4 Lower Body Dressing(FIM): 3 Toileting(FIM): 3 Transfers (B,C,W/C) (FIM): 4 Toilet/Commode Transfer(FIM): 4 Shower Transfer(FIM): 4 Additional Short Term Goals: 1-Demonstrate ADL Tasks, 2-Verbalize Understanding , 3-ImproveStrength/Shiv 1=Demonstrate adherence to instructed precautions during ADL tasks. 2=Patient will verbalize/demonstrate understanding of assistive devices/ modifications for ADL. 3=Patient will improve strength/tolerance for activity to enable patient to perform ADL's. OT Furnace Unloader Goals Furnace Unloader Goals Time Frame: Oct 31, 2018 Eating (FIM): 6 Eating (QC): 6 Groomin Oral Hygiene (QC): 5 Bathing(FIM): 5 Shower/Bathe Self (QC): 4 Upper Body Dressing(FIM): 5 Upper Body Dressing (QC): 5 Lower Body Dressing(FIM): 5 Lower Body Dressing (QC): 4 On/Off Footwear (QC): 4 Toileting(FIM): 6 Toileting Hygiene (QC): 6 Transfers (B,C,W/C) (FIM): 6 Toilet/Commode Transfer(FIM): 6 Toilet/Commode Transfer (QC): 6 Shower Transfer(FIM): 5 Additional Goals: 1-Demonstrate ADL Tasks, 2-Verbalize Understanding, 3- ImproveStrength/Shiv 1=Demonstrate adherence to instructed precautions during ADL tasks. 2=Patient will verbalize/demonstrate understanding of assistive devices/ modifications for ADL. 3=Patient will improve strength/tolerance for activity to enable patient to perform ADL's. OT Education/Plan Discharge Recommendations Plan/Recommendations: Continue POC Treatment Plan/Plan of Care Patient would benefit from OT for education, treatment and training to promote independence in ADL's, mobility, safety and/or upper extremity function for ADL' s. Plan of Care: ADL Retraining, Caregiver Training, Cognitive Retraining, Functional Mobility, Group Exercise/Act as Ind, UE Funct Exercise/Act Treatment Duration: Oct 31, 2018 Frequency: At least 5 of 7 days/Wk (IRF) Estimated Hrs Per Day: 1.5 hours per day Agreement: Yes Rehab Potential: Fair Time/GCodes Start Time: 07:00 Stop Time: 08:15 Total Time Billed (hr/min): 75 Billed Treatment Time 1 visit-ADL 5 (75 min) JORGE TERRY Oct 13, 2018 08:25
[2018-10-13 08:30] VITALS: BP 131/75
[2018-10-13] MEDS: VITAMIN D3 1,000 UNITS (CHOLECALCIFEROL) TABLET PO SCH (08:31)
[2018-10-13] MEDS: METANX PO SCH ×2 (08:31→20:54)
[2018-10-13] MEDS: FLUTICASONE NASAL SPRAY (FLONASE) 16 GM BTL NS SCH (08:31)
[2018-10-13] MEDS: cloNIDine 0.1 MG (CATAPRES) TAB PO SCH ×3 (08:31→20:54)
[2018-10-13] MEDS: meTOprolol TARTRATE 50 MG (LOPRESSOR) TAB PO SCH ×2 (08:32→20:54)
--- NOTE | 2018-10-13 08:46 | PM&R Progress Note ---
Subjective This was a face to face visit with the patient. Date Seen by Provider: Oct 13, 2018 Time Seen by Provider: 08:00 Subjective/Events-last exam Patient was seen in her room this AM Patient reports insomnia and declined Trazodone Patient indicates that she has used Lunesta in the past will f/ u.Patient Mod assist for transfers Date Identified: Oct 13, 2018 Time Identified: 08:00 Medication Intervention: Trazodone d/cd try another med Review of Systems General: Fatigue, Other (insomnia) Neurological: Weakness Objective Physician Exam Last Set of Vital Signs Vital Signs Date Time Temp Pulse Resp B/P (MAP) Pulse Ox O2 Delivery O2 Flow Rate FiO2 10/13/18 08:30 85 131/75 (93) 10/13/18 07:46 Room Air 10/13/18 04:11 97.8 18 96 Capillary Refill : I&O Intake and Output 10/13/18 00:00 Intake Total 750 ml Output Total 2250 ml Balance -1500 ml Intake Oral 750 ml Output Urine Total 2250 ml Bladder Scan Volume Amount 170 ml 146 ml # Urine Diapers 1 General: Alert, Oriented X3, Cooperative, No Acute Distress HEENT: Atraumatic, PERRLA, EOMI, Mucous Memb Moist/[place], Other (dysphagia) Neck: Supple, No JVD Lungs: Clear to Auscultation Heart: Regular Rate Abdomen: Normal Bowel Sounds, Soft, No Tenderness Extremities: No Edema Skin: No Rashes, No Breakdown, Other (Carson just d/cd for TOV) Neuro: Other (Strength 2 to 2+/5 Ble except Rt dorsiflexion 1/5 Weakness in both upper limbs as well) Results Lab Data Laboratory Tests 10/10/18 11:14: Glucometer 183H 10/10/18 16:03: Glucometer 212H 10/10/18 20:22: Glucometer 136H 10/11/18 05:16: Glucometer 115H 10/11/18 10:53: Glucometer 153H 10/11/18 16:03: Glucometer 153H 10/11/18 21:07: Glucometer 194H 10/12/18 06:07: Glucometer 78 10/12/18 11:42: Glucometer 154H 10/12/18 16:34: Glucometer 181H 10/12/18 21:09: Glucometer 205H 10/13/18 05:57: Glucometer 75 Microbiology 10/04/18 C. difficile GD Antigen & Toxins - Final, Complete Assessment/Plan Assessment and Plan MS exacrebation s/p course of IV steroids OSH Dysphaaaaaaagia improving with diet advanced Urinary retention to have another TOV HTN controlled with med DM with hypoglycemia improved with adjustment in HS Insulin HLP followed by ENDO in [place] Insomnia try another med Mood disorder Plan Continue PT/OT/ST Possible Discharge next week depending upon progress Try another med for Insomnia see orders F/U with and Hospitalist service PRN Co-Morbidities that are continuing to impact the rehab process: (include details ) SHARA MITCHELL MD Oct 13, 2018 08:46
--- NOTE | 2018-10-13 10:25 | NUR ---
EMBROIDERY OPERATOR contacted patient's spouse to review Team Conference Summary. EMBROIDERY OPERATOR relayed concerns regarding motivation and self limitation, spouse has also recognized this. Spouse intends to speak with patient regarding this, in addition to conversation EMBROIDERY OPERATOR had yesterday. EMBROIDERY OPERATOR met with patient to inquire about sleep last night; however, patient states she refused the Trazadone due to concerned side effects. Patient has not utilized this med in the past; however, EMBROIDERY OPERATOR did encourage patient try this to help with sleep. EMBROIDERY OPERATOR will continue to follow.
--- NOTE | 2018-10-13 10:51 | Physical Therapy Daily Note ---
PT Daily Note-Current Subjective Pt sitting in recliner upon arrival. Pt agrees to PT despite again not sleeping well last night. Pt reports up a lot last night with wet bedding and needing to use BSC since Carson was removed yesterday. Pain Numeric Pain Scale: 4 Location Body Site: Sacrum Pain Description: Ache Mental Status Patient Orientation: Person, Place Transfers Therapy Code Descriptions/Definitions Functional [place] Measure: 0=Not Assessed/NA 4=Minimal Assistance 1=Total Assistance 5=Supervision or Setup 2=Maximal Assistance 6=Modified [place] 3=Moderate Assistance 7=Complete [place] Therapy Quality Codes: 6 Independent with activity with or without an assistive device 5 Patient requires set up or clean up by helper. Patient completes activity by themselves 4 Supervision or touching assist (CGA). [place] provide cues , steadying assist 3 The helper provides less than half the effort to complete the activity 2 The helper provides more than half the effort to complete the activity 1 Dependent. The helper does all the effort to complete an activity 7 Patient refused to complete or attempt activity 9 The patient did not perform the activity before the current illness or injury 88 Not attempted due to Medical conditions or safety concerns Scootin Sit to/from Stand: 4 Sit to Stand (QC): 4 Weight Bearing Right Lower Extremity: Right Full Weight Bearing Left Lower Extremity: Left Full Weight Bearing Exercises Seated Therapy Exercises: Ankle pumps, Long arc quads, Hip flexion, Kicking activity, Hip abd/add Seated Reps: 15 Treatments Pt is a little concerned that she was being told that she would not stay because she is not making progress. BEAM HOUSE INSPECTOR gives pt ed over ARU purpose, set up and what qualifies pt for ARU as well as what options pt may have if ARU's 3 hrs of Therapy becomes too much to complete. Pt completes Seated Ex in recliner (2 sets) with several rest breaks due to fatigue. Pt transfers from recliner to standing using FWW at CGA to use BSC. Pt SPT with BEAM HOUSE INSPECTOR's assistance to BSC. After finishing, BEAM HOUSE INSPECTOR completes pericare since pt is not able to. Pt stands then SPT back to recliner. BEAM HOUSE INSPECTOR assists repositioning pt in recliner with pillows. Pt resting at end of tx with all needs met. Assessment Current Status: Fair Progress Pt fatigues quickly and easily, frequent rest breaks needed. PT Short Term Goals Short Term Goals Time Frame: Oct 17, 2018 Transfers (B,C,W/C) (FIM): 4 Gait (FIM): 2 Distance (FIM): 7=261-74 ft Gait Distance Comment: 50 ft Gait Level of Assist: 4 Gait Assistive Device: FWW Wheelchair Distance: 0 feet Stairs (FIM): 2 # of Steps: 1 PT Senior Living Goals Senior Living Goals PT Sharepoint Specialist Goals Time Frame: Oct 31, 2018 Transfers (B,C,W/C) (FIM): 6 Sit to Lying (QC): 6 Lying-Sitting on Side/Bed(QC): 6 Sit to Stand (QC): 6 Rollin Roll Left to Right (QC): 6 Chair/[id number]-Sxkdj Xfer(QC): 6 Car Transfer (QC): 5 Does the Patient Walk: No and Walking Goal IS indicated Gait (FIM): 6 Gait distance (FIM): 3=150 ft Walk 10 feet (QC): 6 Walk 10ft-Uneven Surface(QC): 5 Walk 50ft with 2 Turns (QC): 6 Walk 150 ft (QC): 6 Gait Level of Assist: 6 Gait Assistive Device: FWW Does the Pt use WC or Scooter?: Yes Wheelchair (FIM): 6 Wheelchair distance (FIM): 3=150 ft Wheel 50 feet with 2 turns (QC: 6 Stairs (FIM): 5 # of Steps: 4 1 Step (curb) (QC): 6 4 Steps (QC): 6 12 Steps (QC): 88 Picking up an Object (QC): 4 PT Plan Problem List Problem List: Activity Tolerance, Functional Strength, Safety, Balance, Gait, Transfer, Bed Mobility Treatment/Plan Treatment Plan: Continue Plan of Care Treatment Plan: Bed Mobility, Education, Functional Activity Shiv, Functional Strength, Group Therapy, Gait, Safety, Therapeutic Exercise, Transfers Treatment Duration: Oct 31, 2018 Frequency: At least 5 of 7 days/Wk (IRF) Estimated Hrs Per Day: 1.5 hours per day Patient and/or Family Agrees t: Yes Safety Risks/Education Patient Education: Gait Training, Transfer Techniques, Correct Positioning, Disease Process, Safety Issues Teaching Recipient: Patient Teaching Methods: Discussion Response to Teaching: Verbalize Understanding Time/GCodes Time In: 930 Time Out: 1045 Total Billed Treatment Time: 75 Total Billed Treatment 1, EX x2 (30m) & FA x3 (45m) G Codes Necessary: SABA Polanco BEAM HOUSE INSPECTOR Oct 13, 2018 10:51
[2018-10-13] MEDS: [UNRECOGNIZED DRUG - OTHER] PO SCH (11:25)
[2018-10-13] MEDS: ASCORBIC ACID (VIT C) 500 MG TABLET PO SCH (11:26)
[2018-10-13] MEDS: LOSARTAN 50 MG (COZAAR) TAB PO SCH (11:26)
[2018-10-13 11:29] VITALS: BP 118/77
--- NOTE | 2018-10-13 11:55 | Progress Note-Urology ---
Progress Note-Urology Progress Notes/Assess & Plan Progress/Assessment & Plan VOIDING WELL. GOOD AMOUNTS. HAS SOME WET OAB SUMPTOMS. OBSERVE FOR NOW. BLADDER SCAN PVR Final Diagnosis URINE RETENTION AND WET OAB OLI SMITH MD Oct 13, 2018 11:55
--- NOTE | 2018-10-13 14:50 | Speech Therapy Daily Note ---
Speech Daily Progress Note Subjective Date Seen by Provider: Oct 13, 2018 Time Seen by Provider: 00:30 Patient was alert and able to participate in therapy well. Objective Patient completed memory and word finding activities with 80% accuracy with min to mod cues. Communication Comprehension: 4 Expression: 4 Social Cognition Social Interaction: 3 Problem Solvin Memory: 3 Speech Short Term Goals Short Term Goals Short Term Goals 1) Patient will use appropriate linguistic forms to communicate in everyday situations, with 90% or greater accuracy. 2) Patient will identify functions of common items, with 90% or greater accuracy. 3) Patient will express her wants/needs effectively with 90% accuracy. Speech Senior Living Goals Merchandise Flow Associate Goals Patient will be able to effectively communicate within her immediate living environment at 90%. Speech-Plan Patient/Family Goals Patient/Family Goals: Patient plans to return home with her post rehab. Treatment Plan Speech Therapy Treatment Plan: Continue Plan of Care Patient continues to progress with memory and problem solving. Treatment Duration: Oct 17, 2018 Frequency: 5 times per week Estimated Hrs Per Day: .5 hour per day Rehab Potential: Fair Barriers to Learning: Patient tires easily. Pt/Family Agrees to Plan: Yes Safety Risks/Education Teaching Recipient: Patient Teaching Methods: Discussion Response to Teaching: Verbalize Understanding Time Speech Therapy Time In: 13:00 Speech Therapy Time Out: 13:30 Total Billed Time: 30 Billed Treatment Time [address] Oct 13, 2018 14:50
--- NOTE | 2018-10-13 15:00 | NUR ---
DR SMITH NOTIFIED OF PVR.
--- NOTE | 2018-10-13 16:22 | NUR ---
PATIENT [place] WITH MOD ASSISTANCE, GAIT BELT , [place] [facility] [place]IDED AND HAD SMALL BM IN TOILET. ABLE TO PERFORM SHELBIE CARE WITH URINATION, REQ ASSISTANCE FOR COMPLETE CLEAN OF BM. DEPEND DRY AT THIS TIME. PATIENT BACK TO BED. STAFF TOTAL ASSIST TO TURN AND REPOSITION IN BED. PATIENT TURNED SIDE TO SIDE THROUGHOUT DAY OFF LOADING PRESSURE ON HEELS AND BUTTOCKS WHEN IN BED. PATIENT REQUIRES MUCH ENCOURAGEMENT TO PARTICIPATE. CONTINUE TO MONITR. DENIES NEEDS OR C/O AT THIS TIME.
[2018-10-13] MEDS: glyBURIDE 5 MG (MICRONASE) TAB PO SCH (17:12)
[2018-10-13 17:14] VITALS: BP 161/79
[2018-10-13] MEDS: ALPRAZolam 0.25 MG (XANAX) TAB PO PRN (20:53)
[2018-10-13] MEDS: inSUlin DETERMIR 1 UNIT/0.01 ML (LEVEMIR) CHARGE PER UNIT SQ SCH (20:53)
[2018-10-13] MEDS: ASPIRIN E.C. 81 MG (ECOTRIN) TAB PO SCH (20:54)
[2018-10-13] MEDS ORDERED: MELATONIN 3 MG TABLET PO SCH (21:00)
[2018-10-14 05:30] VITALS: BP 169/87
[2018-10-14] MEDS: inSUlin ASPART (NovoLOG) 1 UNIT/0.01 ML (CHARGE PER UNIT) SC SCH ×4 (05:31→21:00)
[2018-10-14] MEDS: KCL 10 MEQ TAB (MICRO K) PO SCH (06:37)
[2018-10-14] MEDS: MULTIVIT W/MINERALS TAB (THERAGRAN M) PO SCH (06:37)
[2018-10-14] MEDS: LACTOBACILLUS ACIDOPHILUS (PROBIOTIC) CAPSULE PO SCH (06:37)
[2018-10-14] MEDS: glyBURIDE 2.5 MG (MICRONASE) TAB PO SCH (06:37)
[2018-10-14] MEDS: BETHANECHOL 25 MG (URECHOLINE) TAB PO SCH ×4 (06:37→21:16)
[2018-10-14] MEDS: metFORMIN 500 MG (GLUCOPHAGE) TAB PO SCH ×2 (06:38→16:12)
[2018-10-14] MEDS: FLUTICASONE NASAL SPRAY (FLONASE) 16 GM BTL NS SCH (07:55)
[2018-10-14] MEDS: meTOprolol TARTRATE 50 MG (LOPRESSOR) TAB PO SCH ×2 (07:56→21:15)
[2018-10-14] MEDS: METANX PO SCH ×2 (07:56→21:14)
[2018-10-14] MEDS: VITAMIN D3 1,000 UNITS (CHOLECALCIFEROL) TABLET PO SCH (07:57)
[2018-10-14] MEDS: cloNIDine 0.1 MG (CATAPRES) TAB PO SCH ×3 (07:57→21:16)
--- NOTE | 2018-10-14 08:58 | Physical Therapy Daily Note ---
PT Daily Note-Current Subjective Patient in recliner pre tx, agrees to PT, has no complaints of pain. Appearance Patient in recliner post tx with nurse call, phone, tray, all needs met. Mental Status Patient Orientation: Person, Confused, Place, Situation Patient seems to have less confusion this morning, talking better. Transfers Therapy Code Descriptions/Definitions Functional [place] Measure: 0=Not Assessed/NA 4=Minimal Assistance 1=Total Assistance 5=Supervision or Setup 2=Maximal Assistance 6=Modified [place] 3=Moderate Assistance 7=Complete [place] Therapy Quality Codes: 6 Independent with activity with or without an assistive device 5 Patient requires set up or clean up by helper. Patient completes activity by themselves 4 Supervision or touching assist (CGA). [place] provide cues , steadying assist 3 The helper provides less than half the effort to complete the activity 2 The helper provides more than half the effort to complete the activity 1 Dependent. The helper does all the effort to complete an activity 7 Patient refused to complete or attempt activity 9 The patient did not perform the activity before the current illness or injury 88 Not attempted due to Medical conditions or safety concerns Transfers (B, C, W/C) (FIM): 4 Sit to/from Stand: 4 Bed to/from Chair: 4 CGA mostly with sit to stand and transfers but did require min assist when fatigued. Weight Bearing Right Lower Extremity: Right Full Weight Bearing Left Lower Extremity: Left Full Weight Bearing Gait Training Gait (FIM): 1 Distance: 20'x3 Gait Level of Assist: 4 Gait Persons Needed: 1 Gait Assistive Device: FWW Needs cues to take big steps, needs assist guiding the walker. Exercises sit to stand x10 NuStep Minutes: 15 NuStep Workload: 4 Treatments transfers, ambulation, functional strengthening Assessment Current Status: Fair Progress Much better ambulation, less distracted. PT Short Term Goals Short Term Goals Time Frame: Oct 17, 2018 Transfers (B,C,W/C) (FIM): 4 Gait (FIM): 2 Distance (FIM): 2=276-76 ft Gait Distance Comment: 50 ft Gait Level of Assist: 4 Gait Assistive Device: FWW Wheelchair Distance: 0 feet Stairs (FIM): 2 # of Steps: 1 PT Regional Construction Manager Goals [facility] Goals PT Regional Construction Manager Goals Time Frame: Oct 31, 2018 Transfers (B,C,W/C) (FIM): 6 Sit to Lying (QC): 6 Lying-Sitting on Side/Bed(QC): 6 Sit to Stand (QC): 6 Rollin Roll Left to Right (QC): 6 Chair/Yls-lk-Fxkwx Xfer(QC): 6 Car Transfer (QC): 5 Does the Patient Walk: No and Walking Goal IS indicated Gait (FIM): 6 Gait distance (FIM): 3=150 ft Walk 10 feet (QC): 6 Walk 10ft-Uneven Surface(QC): 5 Walk 50ft with 2 Turns (QC): 6 Walk 150 ft (QC): 6 Gait Level of Assist: 6 Gait Assistive Device: FWW Does the Pt use WC or Scooter?: Yes Wheelchair (FIM): 6 Wheelchair distance (FIM): 3=150 ft Wheel 50 feet with 2 turns (QC: 6 Stairs (FIM): 5 # of Steps: 4 1 Step (curb) (QC): 6 4 Steps (QC): 6 12 Steps (QC): 88 Picking up an Object (QC): 4 PT Plan Problem List Problem List: Activity Tolerance, Functional Strength, Safety, Balance, Gait, Transfer, Bed Mobility, ROM Treatment/Plan Treatment Plan: Continue Plan of Care Treatment Plan: Bed Mobility, Education, Functional Activity Shiv, Functional Strength, Group Therapy, Gait, Safety, Therapeutic Exercise, Transfers Treatment Duration: Oct 31, 2018 Frequency: At least 5 of 7 days/Wk (IRF) Estimated Hrs Per Day: 1.5 hours per day Patient and/or Family Agrees t: Yes Safety Risks/Education Patient Education: Gait Training, Transfer Techniques, Correct Positioning, Safety Issues Teaching Recipient: Patient Teaching Methods: Demonstration, Discussion Response to Teaching: Reinforcement Needed Time/GCodes Time In: 0800 Time Out: 0900 Total Billed Treatment Time: 60 Total Billed Treatment 1 visit GT 30' EX 20' FA 10' PEBBLES BERRY PT Oct 14, 2018 08:58
--- NOTE | 2018-10-14 09:51 | Progress Note-Urology ---
Progress Note-Urology Progress Notes/Assess & Plan Progress/Assessment & Plan PVR 20CC. KEEP SAME FOR NOW OLI SMITH MD Oct 14, 2018 09:51
[2018-10-14 11:38] VITALS: BP 136/62
[2018-10-14] MEDS: ASCORBIC ACID (VIT C) 500 MG TABLET PO SCH (11:39)
[2018-10-14] MEDS: LOSARTAN 50 MG (COZAAR) TAB PO SCH (11:39)
[2018-10-14] MEDS: [UNRECOGNIZED DRUG - OTHER] PO SCH (11:41)
--- NOTE | 2018-10-14 11:50 | NUR ---
AT BEDSIDE. PT C/O NECK PAIN FROM 'SLEEPING WRONG' LAST NOC. REQUEST IBUPROFEN VS TYLENOL. DR MITCHELL NOTIFIED N/O REC'D. CONT TO MONITOR, WARM BLANKET FOR C/O NECK PAIN. UP IN CHAIR FOR LUNCH
--- NOTE | 2018-10-14 11:53 | Occupational Ther Daily Note ---
OT Current Status-Daily Note Subjective Pt alert, sitting in recliner eating breakfast. Pt agrees to therapy. No c/o pain at this time. Mental Status/Objective Patient Orientation: Person, Place, Time, Situation Therapy Code Descriptions/Definitions Functional [place] Measure: 0=Not Assessed/NA 4=Minimal Assistance 1=Total Assistance 5=Supervision or Setup 2=Maximal Assistance 6=Modified [place] 3=Moderate Assistance 7=Complete [place] ADL-Treatment Pt declined shower today. Pt takes increased time to complete tasks. Agrees to sponge bath and changing clothing. Pt able to complete upper body bathing by self after set up. Bathed lower body after set up with CGA in standing to cleanse lauri area/buttocks. [place] [facility] [place], min A to manipulate clothing and cleansed self sitting on toilet. Min A to doff/don pullover shirt. Pt crossed LE's to doff socks with assist to keep LE's crossed. Assist to don socks and don/doff pants. CGA to hike pants over hips. Mod I for grooming. After therapy, pt sitting in recliner with call light/ phone in reach. All needs met in room. Therapy Code Descriptions/Definitions Functional [place] Measure: 0=Not Assessed/NA 4=Minimal Assistance 1=Total Assistance 5=Supervision or Setup 2=Maximal Assistance 6=Modified [place] 3=Moderate Assistance 7=Complete [place] Therapy Quality Codes: 6 Independent with activity with or without an assistive device 5 Patient requires set up or clean up by helper. Patient completes activity by themselves 4 Supervision or touching assist (CGA). [place] provide cues , steadying assist 3 The helper provides less than half the effort to complete the activity 2 The helper provides more than half the effort to complete the activity 1 Dependent. The helper does all the effort to complete an activity 7 Patient refused to complete or attempt activity 9 The patient did not perform the activity before the current illness or injury 88 Not attempted due to Medical conditions or safety concerns Grooming (FIM): 6 Oral Hygiene (QC): 6 Upper Body (FIM): 4 Upper Body Dressing (QC): 3 Lower Body Dressing (FIM): 2 Lower Body Dressing (QC): 2 On/Off Footwear (QC): 2 Toileting (FIM): 4 Toileting Hygiene (QC): 3 Toilet/Commode Transfer (FIM): 4 Toilet Transfer (QC): 3 OT Short Term Goals Short Term Goals Time Frame: Oct 17, 2018 Eating(FIM): 3 Grooming(FIM): 3 Bathing(FIM): 3 Upper Body Dressing(FIM): 4 Lower Body Dressing(FIM): 3 Toileting(FIM): 3 Transfers (B,C,W/C) (FIM): 4 Toilet/Commode Transfer(FIM): 4 Shower Transfer(FIM): 4 Additional Short Term Goals: 1-Demonstrate ADL Tasks, 2-Verbalize Understanding , 3-ImproveStrength/Shiv 1=Demonstrate adherence to instructed precautions during ADL tasks. 2=Patient will verbalize/demonstrate understanding of assistive devices/ modifications for ADL. 3=Patient will improve strength/tolerance for activity to enable patient to perform ADL's. OT Cyber Defense Forensics Analyst Goals Group Home Goals Time Frame: Oct 31, 2018 Eating (FIM): 6 Eating (QC): 6 Groomin Oral Hygiene (QC): 5 Bathing(FIM): 5 Shower/Bathe Self (QC): 4 Upper Body Dressing(FIM): 5 Upper Body Dressing (QC): 5 Lower Body Dressing(FIM): 5 Lower Body Dressing (QC): 4 On/Off Footwear (QC): 4 Toileting(FIM): 6 Toileting Hygiene (QC): 6 Transfers (B,C,W/C) (FIM): 6 Toilet/Commode Transfer(FIM): 6 Toilet/Commode Transfer (QC): 6 Shower Transfer(FIM): 5 Additional Goals: 1-Demonstrate ADL Tasks, 2-Verbalize Understanding, 3- ImproveStrength/Shiv 1=Demonstrate adherence to instructed precautions during ADL tasks. 2=Patient will verbalize/demonstrate understanding of assistive devices/ modifications for ADL. 3=Patient will improve strength/tolerance for activity to enable patient to perform ADL's. OT Education/Plan Discharge Recommendations Plan/Recommendations: Continue POC Treatment Plan/Plan of Care Patient would benefit from OT for education, treatment and training to promote independence in ADL's, mobility, safety and/or upper extremity function for ADL' s. Plan of Care: ADL Retraining, Caregiver Training, Cognitive Retraining, Functional Mobility, Group Exercise/Act as Ind, UE Funct Exercise/Act Treatment Duration: Oct 31, 2018 Frequency: At least 5 of 7 days/Wk (IRF) Estimated Hrs Per Day: 1.5 hours per day Agreement: Yes Rehab Potential: Fair Time/GCodes Start Time: 07:00 Stop Time: 08:00 Total Time Billed (hr/min): 60 Billed Treatment Time 1 visit-ADL 4 (60 min) JORGE TERRY Oct 14, 2018 11:53
[2018-10-14] MEDS: IBUPROFEN TABLET 200 MG TAB PO PRN (12:53)
--- NOTE | 2018-10-14 13:22 | Speech Therapy Daily Note ---
Speech Daily Progress Note Subjective Date Seen by Provider: Oct 14, 2018 Time Seen by Provider: 00:30 Patient was alert and interactive with session activities. was present and stated he could tell she was doing much better. Objective Patient completed memory tasks and simple conversational skills with minimal cues. Treatment Plan Continue Plan of Care Communication Comprehension: 4 Expression: 4 Social Cognition Social Interaction: 3 Problem Solvin Memory: 3 Speech Short Term Goals Short Term Goals Short Term Goals 1) Patient will use appropriate linguistic forms to communicate in everyday situations, with 90% or greater accuracy. 2) Patient will identify functions of common items, with 90% or greater accuracy. 3) Patient will express her wants/needs effectively with 90% accuracy. Speech Fci Goals Fci Goals Patient will be able to effectively communicate within her immediate living environment at 90%. Speech-Plan Patient/Family Goals Patient/Family Goals: Patient plans to return home with her post rehab. Treatment Plan Speech Therapy Treatment Plan: Continue Plan of Care Patient is making good progress as she regains her strength. Treatment Duration: Oct 17, 2018 Frequency: 5 times per week Estimated Hrs Per Day: .5 hour per day Rehab Potential: Fair Barriers to Learning: Patient tires easily though this has significantly improved. Pt/Family Agrees to Plan: Yes Safety Risks/Education Teaching Recipient: Patient, Significant Other Teaching Methods: Discussion Response to Teaching: Verbalize Understanding Education Topics Provided: Safety when she returns home. Time Speech Therapy Time In: 11:00 Speech Therapy Time Out: 11:30 Total Billed Time: 30 Billed Treatment Time [address] Oct 14, 2018 13:22
--- NOTE | 2018-10-14 13:30 | NUR ---
Patient has improved tremendously within the last two days. Patient was tentatively scheduled for discharge on 10/18 due to lack of progression and lack of motivation; however, patient has performed very well with the last 2 days. DOOR GLASS INSTALLER spoke with PT, Elliot and spouse to discuss the option of reevaluating progress on 10/17 and potentially extending stay due to progression. Both are agreeable to this. Patient currently participating in group therapy. DOOR GLASS INSTALLER will follow up Wednesday.
--- NOTE | 2018-10-14 14:42 | Therapy Group Daily Note ---
Therapy Daily Group Note Other/Notes Patients had group therapy in the common area of rehab this afternoon. Each patient ambulated or was transported to group therapy and they sat at several tables. Each patient had to introduce themselves and state where they were from and state why they were on rehab (unless they did not want to). Then patient's were oriented to rehab to schedule, time required, average stay. etc. Patients performed UE and LE strengthening exercises. They were educated on the benefits of exercise. They also performed a memory game. Finally, patients ambulated or were transported back to their room and placed in chair or bed (with alarm on if needed), with nurse call, phone, tray. Start Time: 13:00 Stop Time: 14:15 Total Billed Treatment Time: 75 Total Billed Treatment 1 visit GRP 75' PEBBLES BERRY PT Oct 14, 2018 14:42
--- NOTE | 2018-10-14 15:47 | PM&R Progress Note ---
Subjective This was a face to face visit with the patient. Date Seen by Provider: Oct 14, 2018 Time Seen by Provider: 15:30 Subjective/Events-last exam Patient was seen in her room this afternoon Patient min assist for transfers Patients affect improving and spouse feels patient doing better now that voiding Review of Systems Neurological: Weakness Objective Physician Exam Last Set of Vital Signs Vital Signs Date Time Temp Pulse Resp B/P (MAP) Pulse Ox O2 Delivery O2 Flow Rate FiO2 10/14/18 11:38 72 136/62 (86) 10/14/18 08:00 Room Air 10/14/18 05:30 97.3 20 99 Capillary Refill : I&O Intake and Output 10/14/18 00:00 Intake Total 775 ml Output Total 300 ml Balance 475 ml Intake Oral 775 ml Output Urine Total 300 ml # Voids 6 # Urine Diapers 3 # Bowel Movements 3 General: Alert, Oriented X3, Cooperative, No Acute Distress HEENT: Atraumatic, PERRLA, EOMI, Mucous Memb Moist/[place], Other (dysphagia) Neck: Supple, No JVD Lungs: Clear to Auscultation Heart: Regular Rate Abdomen: Normal Bowel Sounds, Soft, No Tenderness Extremities: No Edema Skin: No Rashes, No Breakdown, Other ([place] just d/cd for TOV) Neuro: Other (Strength 2 to 2+/5 Ble except Rt dorsiflexion 1/5 Weakness in both upper limbs as well) Results Lab Data Laboratory Tests 10/11/18 16:03: Glucometer 153H 10/11/18 21:07: Glucometer 194H 10/12/18 06:07: Glucometer 78 10/12/18 11:42: Glucometer 154H 10/12/18 16:34: Glucometer 181H 10/12/18 21:09: Glucometer 205H 10/13/18 05:57: Glucometer 75 10/13/18 11:01: Glucometer 211H 10/13/18 16:14: Glucometer 146H 10/13/18 20:48: Glucometer 242H 10/14/18 05:02: Glucometer 142H 10/14/18 11:24: Glucometer 180H Microbiology 10/04/18 C. 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
[2018-10-14 16:54] VITALS: BP 152/83
[2018-10-14] MEDS: glyBURIDE 5 MG (MICRONASE) TAB PO SCH (18:16)
--- NOTE | 2018-10-14 19:13 | NUR ---
bedside report received from SABA BRADY, assume care of pt
[2018-10-14 20:45] VITALS: BP 128/76
--- NOTE | 2018-10-14 21:00 | NUR ---
assessments & interventions completed, see assessments & interventions, pt takes pills well one at a time with hob up straight & water asked melatonin & xanax 0.25mg po to help pt rest tonight
[2018-10-14] MEDS: ASPIRIN E.C. 81 MG (ECOTRIN) TAB PO SCH (21:15)
[2018-10-14] MEDS: ALPRAZolam 0.25 MG (XANAX) TAB PO PRN (21:15)
[2018-10-14] MEDS: MELATONIN 3 MG TABLET PO SCH (21:16)
[2018-10-14] MEDS: inSUlin DETERMIR 1 UNIT/0.01 ML (LEVEMIR) CHARGE PER UNIT SQ SCH (21:20)
[2018-10-15 05:29] VITALS: BP 149/78
[2018-10-15] MEDS: inSUlin ASPART (NovoLOG) 1 UNIT/0.01 ML (CHARGE PER UNIT) SC SCH ×4 (06:20→20:55)
--- NOTE | 2018-10-15 06:25 | NUR ---
fsbs 58 given 4 oz oj
--- NOTE | 2018-10-15 07:10 | NUR ---
fsbs 106, pt eating breakfast
[2018-10-15] MEDS: glyBURIDE 2.5 MG (MICRONASE) TAB PO SCH (07:13)
[2018-10-15] MEDS: LACTOBACILLUS ACIDOPHILUS (PROBIOTIC) CAPSULE PO SCH (07:13)
[2018-10-15] MEDS: BETHANECHOL 25 MG (URECHOLINE) TAB PO SCH ×4 (07:13→20:47)
[2018-10-15] MEDS: metFORMIN 500 MG (GLUCOPHAGE) TAB PO SCH ×2 (07:13→18:20)
[2018-10-15] MEDS: MULTIVIT W/MINERALS TAB (THERAGRAN M) PO SCH (07:13)
--- NOTE | 2018-10-15 07:15 | NUR ---
bedside report given to PHILIP BRADY
[2018-10-15] MEDS: KCL 10 MEQ TAB (MICRO K) PO SCH (07:20)
--- NOTE | 2018-10-15 07:42 | PM&R Progress Note ---
Subjective This was a face to face visit with the patient. Date Seen by Provider: Oct 15, 2018 Time Seen by Provider: 07:05 Subjective/Events-last exam Patient was seen in her room this AM Patient Min assist for transfers Patient voiding RN reports patient slept last night with Xanax and Melatonin Objective Physician Exam Last Set of Vital Signs Vital Signs Date Time Temp Pulse Resp B/P (MAP) Pulse Ox O2 Delivery O2 Flow Rate FiO2 10/15/18 05:29 97.5 67 18 149/78 (101) 98 Room Air Capillary Refill : I&O Intake and Output 10/15/18 00:00 Intake Total 700 ml Output Total 400 ml Balance 300 ml Intake Oral 700 ml Output Urine Total 400 ml Bladder Scan Volume Amount 155 ml # Voids 3 # Urine Diapers 1 # Bowel Movements 3 General: Alert, Oriented X3, Cooperative, No Acute Distress HEENT: Atraumatic, PERRLA, EOMI, Mucous Memb Moist/[place], Other (dysphagia) Neck: Supple, No JVD Lungs: Clear to Auscultation Heart: Regular Rate Abdomen: Normal Bowel Sounds, Soft, No Tenderness Extremities: No Edema Skin: No Rashes, No Breakdown, Other ([place] just d/cd for TOV) Neuro: Other (Strength 2 to 2+/5 Ble except Rt dorsiflexion 1/5 Weakness in both upper limbs as well) Results Lab Data Laboratory Tests 10/12/18 11:42: Glucometer 154H 10/12/18 16:34: Glucometer 181H 10/12/18 21:09: Glucometer 205H 10/13/18 05:57: Glucometer 75 10/13/18 11:01: Glucometer 211H 10/13/18 16:14: Glucometer 146H 10/13/18 20:48: Glucometer 242H 10/14/18 05:02: Glucometer 142H 10/14/18 11:24: Glucometer 180H 10/14/18 16:03: Glucometer 163H 10/14/18 20:56: Glucometer 217H 10/15/18 06:21: Glucometer 58*L 10/15/18 07:12: Glucometer 106 Microbiology 10/04/18 C. difficile GDH Antigen & Toxins - Final, Complete Assessment/Plan Assessment and Plan MS exacerbation s/p course of IV steroids OSH Dysphagia improving withj diet advanced to mechanical soft and thin liquids Urinary retention improved and voiding HTN controlled with med DM with hypoglycemia-will decreased HS insulin further HLP followed by ENDO in [place] Insomnia improved Plan Continue PT/OT/ST REevaluate next week May need to d/c HS insulin as now down to only 2 units Patient and spouse pleased with her progress Co-Morbidities that are continuing to impact the rehab process: (include details ) SHARA MITCHELL MD Oct 15, 2018 07:42
[2018-10-15 09:15] VITALS: BP 176/81
[2018-10-15] MEDS: VITAMIN D3 1,000 UNITS (CHOLECALCIFEROL) TABLET PO SCH (09:16)
[2018-10-15] MEDS: meTOprolol TARTRATE 50 MG (LOPRESSOR) TAB PO SCH ×2 (09:16→20:52)
[2018-10-15] MEDS: cloNIDine 0.1 MG (CATAPRES) TAB PO SCH ×3 (09:16→20:51)
[2018-10-15] MEDS: METANX PO SCH ×2 (09:16→20:53)
[2018-10-15] MEDS: FLUTICASONE NASAL SPRAY (FLONASE) 16 GM BTL NS SCH (09:22)
--- NOTE | 2018-10-15 09:41 | Physical Therapy Daily Note ---
PT Daily Note-Current Subjective Patient in bed pre tx, agrees to PT, no complaints of pain, needs dressed lowers , nurse in the room to give meds. Appearance Patient in bed post tx with nurse in the room to finish up with her. Mental Status Patient Orientation: Person, Place, Situation Transfers Therapy Code Descriptions/Definitions Functional [place] Measure: 0=Not Assessed/NA 4=Minimal Assistance 1=Total Assistance 5=Supervision or Setup 2=Maximal Assistance 6=Modified [place] 3=Moderate Assistance 7=Complete [place] Therapy Quality Codes: 6 Independent with activity with or without an assistive device 5 Patient requires set up or clean up by helper. Patient completes activity by themselves 4 Supervision or touching assist (CGA). [place] provide cues , steadying assist 3 The helper provides less than half the effort to complete the activity 2 The helper provides more than half the effort to complete the activity 1 Dependent. The helper does all the effort to complete an activity 7 Patient refused to complete or attempt activity 9 The patient did not perform the activity before the current illness or injury 88 Not attempted due to Medical conditions or safety concerns Transfers (B, C, W/C) (FIM): 3 Scootin Rollin Supine to/from Sit: 4 Sit to/from Stand: 4 Bed to/from Chair: 4 CGA for sit to stand and transfers, cues for hand placement and safety Weight Bearing Right Lower Extremity: Right Full Weight Bearing Left Lower Extremity: Left Full Weight Bearing Gait Training Gait (FIM): 2 Distance: 60'x2 Gait Level of Assist: 4 Gait Persons Needed: 1 Gait Assistive Device: FWW CGA, slow but steady ambulation Treatments bed mobility, transfers, ambulation Assessment Current Status: Fair Progress improving ambulation PT Short Term Goals Short Term Goals Time Frame: Oct 17, 2018 Transfers (B,C,W/C) (FIM): 4 Gait (FIM): 2 Distance (FIM): 2=272-96 ft Gait Distance Comment: 50 ft Gait Level of Assist: 4 Gait Assistive Device: FWW Wheelchair Distance: 0 feet Stairs (FIM): 2 # of Steps: 1 PT Development Intern Goals Development Intern Goals PT Development Intern Goals Time Frame: Oct 31, 2018 Transfers (B,C,W/C) (FIM): 6 Sit to Lying (QC): 6 Lying-Sitting on Side/Bed(QC): 6 Sit to Stand (QC): 6 Rollin Roll Left to Right (QC): 6 Chair/Hgc-gs-Cycma Xfer(QC): 6 Car Transfer (QC): 5 Does the Patient Walk: No and Walking Goal IS indicated Gait (FIM): 6 Gait distance (FIM): 3=150 ft Walk 10 feet (QC): 6 Walk 10ft-Uneven Surface(QC): 5 Walk 50ft with 2 Turns (QC): 6 Walk 150 ft (QC): 6 Gait Level of Assist: 6 Gait Assistive Device: FWW Does the Pt use WC or Scooter?: Yes Wheelchair (FIM): 6 Wheelchair distance (FIM): 3=150 ft Wheel 50 feet with 2 turns (QC: 6 Stairs (FIM): 5 # of Steps: 4 1 Step (curb) (QC): 6 4 Steps (QC): 6 12 Steps (QC): 88 Picking up an Object (QC): 4 PT Plan Problem List Problem List: Activity Tolerance, Functional Strength, Safety, Balance, Gait, Transfer, Bed Mobility, ROM Treatment/Plan Treatment Plan: Continue Plan of Care Treatment Plan: Bed Mobility, Education, Functional Activity Shiv, Functional Strength, Group Therapy, Gait, Safety, Therapeutic Exercise, Transfers Treatment Duration: Oct 31, 2018 Frequency: At least 5 of 7 days/Wk (IRF) Estimated Hrs Per Day: 1.5 hours per day Patient and/or Family Agrees t: Yes Safety Risks/Education Patient Education: Gait Training, Transfer Techniques, Correct Positioning, Safety Issues Teaching Recipient: Patient Teaching Methods: Demonstration, Discussion Response to Teaching: Reinforcement Needed Time/GCodes Time In: 919 Time Out: 939 Total Billed Treatment Time: 20 Total Billed Treatment 1 visit GT 20' PEBBLES BERRY PT Oct 15, 2018 09:41
[2018-10-15] MEDS: ASCORBIC ACID (VIT C) 500 MG TABLET PO SCH (12:30)
[2018-10-15] MEDS: LOSARTAN 50 MG (COZAAR) TAB PO SCH (12:30)
[2018-10-15] MEDS: [UNRECOGNIZED DRUG - OTHER] PO SCH (12:31)
--- NOTE | 2018-10-15 15:30 | NUR ---
Bedside report received from Lisha Lozada RN. This nurse to assume care for duration of shift.
[2018-10-15 18:00] VITALS: BP 165/80
[2018-10-15] MEDS: glyBURIDE 5 MG (MICRONASE) TAB PO SCH (18:20)
--- NOTE | 2018-10-15 19:12 | NUR ---
bedside report received from TARIQ BRADY, assume care of pt
[2018-10-15 20:45] VITALS: BP 160/80
[2018-10-15] MEDS: ALPRAZolam 0.25 MG (XANAX) TAB PO PRN (20:47)
[2018-10-15] MEDS: MELATONIN 3 MG TABLET PO SCH (20:47)
--- NOTE | 2018-10-15 20:47 | NUR ---
xanax 0.25mg po as requested by pt for help in relaxing so could sleep
[2018-10-15] MEDS: ASPIRIN E.C. 81 MG (ECOTRIN) TAB PO SCH (20:48)
[2018-10-15] MEDS: inSUlin DETERMIR 1 UNIT/0.01 ML (LEVEMIR) CHARGE PER UNIT SQ SCH (20:51)
--- NOTE | 2018-10-15 21:00 | NUR ---
assessments & interventions completed, see assessments & interventions, fsbs 238 refused NovoLog due to low blood sugar this morning, given Levemir 2 units dose decreased by doctor
[2018-10-16 06:00] VITALS: BP 158/80
[2018-10-16] MEDS: inSUlin ASPART (NovoLOG) 1 UNIT/0.01 ML (CHARGE PER UNIT) SC SCH ×4 (06:00→20:38)
[2018-10-16] MEDS: BETHANECHOL 25 MG (URECHOLINE) TAB PO SCH ×4 (06:41→20:37)
[2018-10-16] MEDS: KCL 10 MEQ TAB (MICRO K) PO SCH (06:41)
[2018-10-16] MEDS: MULTIVIT W/MINERALS TAB (THERAGRAN M) PO SCH (06:41)
[2018-10-16] MEDS: LACTOBACILLUS ACIDOPHILUS (PROBIOTIC) CAPSULE PO SCH (06:41)
[2018-10-16] MEDS: metFORMIN 500 MG (GLUCOPHAGE) TAB PO SCH ×2 (06:41→17:05)
[2018-10-16] MEDS: glyBURIDE 2.5 MG (MICRONASE) TAB PO SCH (06:42)
--- NOTE | 2018-10-16 07:15 | NUR ---
bedside report given to LJ BRADY
[2018-10-16] MEDS: VITAMIN D3 1,000 UNITS (CHOLECALCIFEROL) TABLET PO SCH (08:50)
[2018-10-16] MEDS: METANX PO SCH ×2 (08:50→20:36)
[2018-10-16] MEDS: meTOprolol TARTRATE 50 MG (LOPRESSOR) TAB PO SCH ×2 (08:50→20:37)
[2018-10-16] MEDS: cloNIDine 0.1 MG (CATAPRES) TAB PO SCH ×3 (08:50→20:37)
[2018-10-16] MEDS: FLUTICASONE NASAL SPRAY (FLONASE) 16 GM BTL NS SCH (08:51)
[2018-10-16] MEDS: ASCORBIC ACID (VIT C) 500 MG TABLET PO SCH (12:04)
[2018-10-16] MEDS: LOSARTAN 50 MG (COZAAR) TAB PO SCH (12:04)
[2018-10-16] MEDS: [UNRECOGNIZED DRUG - OTHER] PO SCH (12:04)
[2018-10-16] MEDS: glyBURIDE 5 MG (MICRONASE) TAB PO SCH (17:05)
[2018-10-16 18:00] VITALS: BP 186/84
[2018-10-16] MEDS: ALPRAZolam 0.25 MG (XANAX) TAB PO PRN (20:36)
[2018-10-16] MEDS: ASPIRIN E.C. 81 MG (ECOTRIN) TAB PO SCH (20:37)
[2018-10-16] MEDS: MELATONIN 3 MG TABLET PO SCH (20:37)
[2018-10-16] MEDS: inSUlin DETERMIR 1 UNIT/0.01 ML (LEVEMIR) CHARGE PER UNIT SQ SCH (20:38)
[2018-10-17 05:32] VITALS: BP 179/83
[2018-10-17] MEDS: MULTIVIT W/MINERALS TAB (THERAGRAN M) PO SCH (06:17)
[2018-10-17] MEDS: BETHANECHOL 25 MG (URECHOLINE) TAB PO SCH ×3 (06:17→16:51)
[2018-10-17] MEDS: LACTOBACILLUS ACIDOPHILUS (PROBIOTIC) CAPSULE PO SCH (06:17)
[2018-10-17] MEDS: KCL 10 MEQ TAB (MICRO K) PO SCH (06:17)
[2018-10-17] MEDS: metFORMIN 500 MG (GLUCOPHAGE) TAB PO SCH ×2 (06:18→16:51)
[2018-10-17] MEDS: inSUlin ASPART (NovoLOG) 1 UNIT/0.01 ML (CHARGE PER UNIT) SC SCH ×4 (06:18→20:27)
[2018-10-17] MEDS: glyBURIDE 2.5 MG (MICRONASE) TAB PO SCH (06:18)
--- NOTE | 2018-10-17 08:56 | Physical Therapy Daily Note ---
PT Daily Note-Current Subjective Patient in recliner pre tx, agrees to PT, no complaints of pain. Appearance Patient in recliner post tx with nurse call, phone, tray, all needs met. Mental Status Patient Orientation: Person, Place, Situation Transfers Therapy Code Descriptions/Definitions Functional [place] Measure: 0=Not Assessed/NA 4=Minimal Assistance 1=Total Assistance 5=Supervision or Setup 2=Maximal Assistance 6=Modified [place] 3=Moderate Assistance 7=Complete [place] Therapy Quality Codes: 6 Independent with activity with or without an assistive device 5 Patient requires set up or clean up by helper. Patient completes activity by themselves 4 Supervision or touching assist (CGA). [place] provide cues , steadying assist 3 The helper provides less than half the effort to complete the activity 2 The helper provides more than half the effort to complete the activity 1 Dependent. The helper does all the effort to complete an activity 7 Patient refused to complete or attempt activity 9 The patient did not perform the activity before the current illness or injury 88 Not attempted due to Medical conditions or safety concerns Transfers (B, C, W/C) (FIM): 4 Sit to/from Stand: 4 Bed to/from Chair: 4 CGA for transfers, occasionally needs min assist for sit to stand from low surfaces or with fatigue, cues for hand placement Weight Bearing Right Lower Extremity: Right Full Weight Bearing Left Lower Extremity: Left Full Weight Bearing Gait Training Gait (FIM): 2 Distance: 70'x2, 30' Gait Level of Assist: 4 Gait Persons Needed: 1 Gait Assistive Device: FWW CGA but needs min assist to guide walker when fatigued Exercises Standing: Hip Abduction, Heel/toe raises, Marching, Mini squats Standing Reps: 15 sit to stand 2 sets of 10, LAQ alternating for 5 min Treatments transfers, ambulation, functional strengthening Assessment Current Status: Fair Progress improving endurance PT Short Term Goals Short Term Goals Time Frame: Oct 17, 2018 Transfers (B,C,W/C) (FIM): 4 Gait (FIM): 2 Distance (FIM): 6=335-68 ft Gait Distance Comment: 50 ft Gait Level of Assist: 4 Gait Assistive Device: FWW Wheelchair Distance: 0 feet Stairs (FIM): 2 # of Steps: 1 PT Senior Brand Manager Goals Senior Brand Manager Goals PT Senior Brand Manager Goals Time Frame: Oct 31, 2018 Transfers (B,C,W/C) (FIM): 6 Sit to Lying (QC): 6 Lying-Sitting on Side/Bed(QC): 6 Sit to Stand (QC): 6 Rollin Roll Left to Right (QC): 6 Chair/Odf-di-Tqupe Xfer(QC): 6 Car Transfer (QC): 5 Does the Patient Walk: No and Walking Goal IS indicated Gait (FIM): 6 Gait distance (FIM): 3=150 ft Walk 10 feet (QC): 6 Walk 10ft-Uneven Surface(QC): 5 Walk 50ft with 2 Turns (QC): 6 Walk 150 ft (QC): 6 Gait Level of Assist: 6 Gait Assistive Device: FWW Does the Pt use WC or Scooter?: Yes Wheelchair (FIM): 6 Wheelchair distance (FIM): 3=150 ft Wheel 50 feet with 2 turns (QC: 6 Stairs (FIM): 5 # of Steps: 4 1 Step (curb) (QC): 6 4 Steps (QC): 6 12 Steps (QC): 88 Picking up an Object (QC): 4 PT Plan Problem List Problem List: Activity Tolerance, Functional Strength, Safety, Balance, Gait, Transfer, Bed Mobility, ROM Treatment/Plan Treatment Plan: Continue Plan of Care Treatment Plan: Bed Mobility, Education, Functional Activity Shiv, Functional Strength, Group Therapy, Gait, Safety, Therapeutic Exercise, Transfers Treatment Duration: Oct 31, 2018 Frequency: At least 5 of 7 days/Wk (IRF) Estimated Hrs Per Day: 1.5 hours per day Patient and/or Family Agrees t: Yes Safety Risks/Education Patient Education: Gait Training, Transfer Techniques, Correct Positioning, Safety Issues Teaching Recipient: Patient Teaching Methods: Demonstration, Discussion Response to Teaching: Reinforcement Needed Time/GCodes Time In: 0800 Time Out: 0900 Total Billed Treatment Time: 60 Total Billed Treatment 1 visit GT 30' EX 30' PEBBLES BERRY PT Oct 17, 2018 08:56
[2018-10-17] MEDS: cloNIDine 0.1 MG (CATAPRES) TAB PO SCH ×3 (09:02→20:27)
[2018-10-17] MEDS: VITAMIN D3 1,000 UNITS (CHOLECALCIFEROL) TABLET PO SCH (09:02)
[2018-10-17] MEDS: meTOprolol TARTRATE 50 MG (LOPRESSOR) TAB PO SCH ×2 (09:02→20:27)
[2018-10-17] MEDS: FLUTICASONE NASAL SPRAY (FLONASE) 16 GM BTL NS SCH (09:03)
[2018-10-17] MEDS: METANX PO SCH ×2 (09:04→20:26)
--- NOTE | 2018-10-17 09:34 | Speech Therapy Daily Note ---
Speech Daily Progress Note Subjective Date Seen by Provider: Oct 17, 2018 Time Seen by Provider: 00:30 Patient was tired today from having several guests over the weekend for her birthday. She was able to participate well with her vocal output continuing to be strong. Objective Patient completed a series of conversational tasks with no cues needed this date. Treatment Plan Continue Plan of Care Communication Comprehension: 4 Expression: 4 Social Cognition Social Interaction: 3 Problem Solvin Memory: 3 Speech Short Term Goals Short Term Goals Short Term Goals 1) Patient will use appropriate linguistic forms to communicate in everyday situations, with 90% or greater accuracy. 2) Patient will identify functions of common items, with 90% or greater accuracy. 3) Patient will express her wants/needs effectively with 90% accuracy. Speech Project Administrative Assistant Goals Long-Term Goals Patient will be able to effectively communicate within her immediate living environment at 90%. Speech-Plan Patient/Family Goals Patient/Family Goals: Patient plans to return home with her as soon as she is released from the hospital. Treatment Plan Speech Therapy Treatment Plan: Continue Plan of Care Patient has continued to progress well. Treatment Duration: Oct 21, 2018 Frequency: 5 times per week Estimated Hrs Per Day: .5 hour per day Rehab Potential: Fair Barriers to Learning: Patient tires easily. Pt/Family Agrees to Plan: Yes Safety Risks/Education Education Topics Provided: Safety within her room. Time Speech Therapy Time In: 09:00 Speech Therapy Time Out: 09:30 Total Billed Time: 30 Billed Treatment Time [address] Oct 17, 2018 09:34
--- NOTE | 2018-10-17 11:09 | NUR ---
As patient has continued to progress, TOOLING MECHANIC and PTPat discussed the idea or re-evaluating patient's progress at Team Conference on 10/19. Patient has had a significant increase in progress, motivation and participation.
--- NOTE | 2018-10-17 11:32 | Progress Note-Urology ---
Progress Note-Urology Progress Notes/Assess & Plan Progress/Assessment & Plan VOIDING WELL. EMPTIES VERY WELL. MINIMAL TO NO INCONTINENCE. PLAN WITHDRAW URECHOLINE GRADUALLY AND OBSERVE EMPTYING. Final Diagnosis URINE RETENTION AND INCONTINENCE OLI SMITH MD Oct 17, 2018 11:32
--- NOTE | 2018-10-17 11:48 | Occupational Ther Daily Note ---
OT Current Status-Daily Note Subjective Pt alert, sitting in recliner. Pt agrees to therapy. No c/o pain at this time. Appearance Pt leaning toward L side in chair, unable to right self. Pelvis in anterior tilt in chair, unable to scoot self back in chair. Pt c/o chair being uncomfortable. Mental Status/Objective Patient Orientation: Person, Place, Time, Situation Therapy Code Descriptions/Definitions Functional [place] Measure: 0=Not Assessed/NA 4=Minimal Assistance 1=Total Assistance 5=Supervision or Setup 2=Maximal Assistance 6=Modified [place] 3=Moderate Assistance 7=Complete [place] ADL-Treatment Pt agrees to shower. Pt ambulated to shower with assist to maneuver FWW. Min A and verbal cues to transfer into shower using FWW, grabbars and shower seat. With verbal cues to bathe areas, pt able to bathe upper body, lauri area and lower body. In standing assist to cleanse buttocks. Pt lightly washes self and is able to lightly shampoo 1/2 of hair. Assist to cleanse self thoroughly. Pt continues to lean toward L side, when righted pt is unable to keep self sitting upright. Pt has slumped posture and unable to straighten spine to sit upright. Pt attempts to dry self, assist to thoroughly dry self. Pt does attempt to thread arms through sleeves and place over head. Pt threads shirt to forearms/wrists then attempts to anchor tack puller head, unable to complete. With verbal and physical cues to thread shirt up passed elbows then pt is able to anchor tack puller head by self then assist to straighten and pull shirt down in back. Pt attempts to lean forward and thread feet through briefs. Assist needed to complete. Pt pulls to stand with grabbar and stabilizes self in standing. Attempts to pull pants up thighs and hike over hips, unable to complete, assist to complete. Is able to hike over abdomen. Assist to don/doff socks. Sitting at sink, pt able to complete own grooming. Min A for SPT from w/c to bed and assist to position in bed. After therapy, pt lying in bed with call light/ phone in reach. All needs met in room. Therapy Code Descriptions/Definitions Functional [place] Measure: 0=Not Assessed/NA 4=Minimal Assistance 1=Total Assistance 5=Supervision or Setup 2=Maximal Assistance 6=Modified [place] 3=Moderate Assistance 7=Complete [place] Therapy Quality Codes: 6 Independent with activity with or without an assistive device 5 Patient requires set up or clean up by helper. Patient completes activity by themselves 4 Supervision or touching assist (CGA). [place] provide cues , steadying assist 3 The helper provides less than half the effort to complete the activity 2 The helper provides more than half the effort to complete the activity 1 Dependent. The helper does all the effort to complete an activity 7 Patient refused to complete or attempt activity 9 The patient did not perform the activity before the current illness or injury 88 Not attempted due to Medical conditions or safety concerns Grooming (FIM): 6 Oral Hygiene (QC): 6 Bathing (FIM): 3 Bathing Location: L Arm, R Arm, L Upper Leg, R Upper Leg, L Lower Leg ( including foot), R Lower Leg (including foot), Chest, Abdomen, Perineal Area Shower/Bathe Self (QC): 3 Upper Body (FIM): 3 Upper Body Dressing (QC): 3 Lower Body Dressing (FIM): 2 Lower Body Dressing (QC): 2 On/Off Footwear (QC): 2 Shower Transfer(FIM): 3 OT Short Term Goals Short Term Goals Time Frame: Oct 17, 2018 Eating(FIM): 3 Grooming(FIM): 3 Bathing(FIM): 3 Upper Body Dressing(FIM): 4 Lower Body Dressing(FIM): 3 Toileting(FIM): 3 Transfers (B,C,W/C) (FIM): 4 Toilet/Commode Transfer(FIM): 4 Shower Transfer(FIM): 4 Additional Short Term Goals: 1-Demonstrate ADL Tasks, 2-Verbalize Understanding , 3-ImproveStrength/Shiv 1=Demonstrate adherence to instructed precautions during ADL tasks. 2=Patient will verbalize/demonstrate understanding of assistive devices/ modifications for ADL. 3=Patient will improve strength/tolerance for activity to enable patient to perform ADL's. OT Artificial Flowers Starcher Goals Nursing Home Goals Time Frame: Oct 31, 2018 Eating (FIM): 6 Eating (QC): 6 Groomin Oral Hygiene (QC): 5 Bathing(FIM): 5 Shower/Bathe Self (QC): 4 Upper Body Dressing(FIM): 5 Upper Body Dressing (QC): 5 Lower Body Dressing(FIM): 5 Lower Body Dressing (QC): 4 On/Off Footwear (QC): 4 Toileting(FIM): 6 Toileting Hygiene (QC): 6 Transfers (B,C,W/C) (FIM): 6 Toilet/Commode Transfer(FIM): 6 Toilet/Commode Transfer (QC): 6 Shower Transfer(FIM): 5 Additional Goals: 1-Demonstrate ADL Tasks, 2-Verbalize Understanding, 3- ImproveStrength/Shiv 1=Demonstrate adherence to instructed precautions during ADL tasks. 2=Patient will verbalize/demonstrate understanding of assistive devices/ modifications for ADL. 3=Patient will improve strength/tolerance for activity to enable patient to perform ADL's. OT Education/Plan Discharge Recommendations Plan/Recommendations: Continue POC Treatment Plan/Plan of Care Patient would benefit from OT for education, treatment and training to promote independence in ADL's, mobility, safety and/or upper extremity function for ADL' s. Plan of Care: ADL Retraining, Caregiver Training, Cognitive Retraining, Functional Mobility, Group Exercise/Act as Ind, UE Funct Exercise/Act Treatment Duration: Oct 31, 2018 Frequency: At least 5 of 7 days/Wk (IRF) Estimated Hrs Per Day: 1.5 hours per day Agreement: Yes Rehab Potential: Fair Time/GCodes Start Time: 10:30 Stop Time: 11:55 Total Time Billed (hr/min): 85 Billed Treatment Time 1 visit-ADL 6 (85 min) JORGE TERRY Oct 17, 2018 11:48
[2018-10-17] MEDS: ASCORBIC ACID (VIT C) 500 MG TABLET PO SCH (11:54)
[2018-10-17] MEDS: [UNRECOGNIZED DRUG - OTHER] PO SCH (11:54)
[2018-10-17] MEDS: LOSARTAN 50 MG (COZAAR) TAB PO SCH (11:54)
--- NOTE | 2018-10-17 14:41 | Therapy Group Daily Note ---
Therapy Daily Group Note Patient Education Topic Other List Below Exercises LE Seated Exercise, UE Exercise Other/Notes Pt transported via w/c to group therapy in [facility]. Group consisted of introductions (name, place, childhood memory), socialization, benefits of exercise, handwashing education, memory tasks, UE/LE seated exercise and following direction task. Pt was able to introduce self appropriately and actively listened to peers. Pt contributed to conversations with peers throughout group. Pt verbalized understanding of educational topics. Led exercises for peers and was able to complete exercises appropriately. Pt was able to remember 1 of 5 words then followed directions with activity. After therapy, pt lying in bed with call light/phone in reach. All needs met in room. Start Time: 13:00 Stop Time: 14:05 Total Billed Treatment Time: 65 Total Billed Treatment 1-GRP JORGE TERRY Oct 17, 2018 14:41
[2018-10-17 15:22] VITALS: BP 142/84
[2018-10-17] MEDS: glyBURIDE 5 MG (MICRONASE) TAB PO SCH (16:51)
--- NOTE | 2018-10-17 18:27 | PM&R Progress Note ---
Subjective This was a face to face visit with the patient. Date Seen by Provider: Oct 17, 2018 Time Seen by Provider: 18:00 Subjective/Events-last exam Patient was seen in her room this evening Patient min assist for transfers Date Identified: Oct 17, 2018 Time Identified: 18:20 Medication Intervention: Med adjusted for Urinary retention as per Objective Physician Exam Last Set of Vital Signs Vital Signs Date Time Temp Pulse Resp B/P (MAP) Pulse Ox O2 Delivery O2 Flow Rate FiO2 10/17/18 15:22 98.2 67 16 142/84 (103) 99 Room Air Capillary Refill : I&O Intake and Output 10/17/18 00:00 Intake Total 1050 ml Output Total 475 ml Balance 575 ml Intake Oral 1050 ml Output Urine Total 475 ml Bladder Scan Volume Amount 0 ml # Voids 4 # Bowel Movements 1 General: Alert, Oriented X3, Cooperative, No Acute Distress HEENT: Atraumatic, PERRLA, EOMI, Mucous Memb Moist/[place], Other (dysphagia) Neck: Supple, No JVD Lungs: Clear to Auscultation Heart: Regular Rate Abdomen: Normal Bowel Sounds, Soft, No Tenderness Extremities: No Edema Skin: No Rashes, No Breakdown, Other ([place] just d/cd for TOV) Neuro: Other (Strength 2 to 2+/5 Ble except Rt dorsiflexion 1/5 Weakness in both upper limbs as well) Results Lab Data Laboratory Tests 10/14/18 20:56: Glucometer 217H 10/15/18 06:21: Glucometer 58*L 10/15/18 07:12: Glucometer 106 10/15/18 11:28: Glucometer 176H 10/15/18 15:58: Glucometer 165H 10/15/18 20:46: Glucometer 238H 10/16/18 05:32: Glucometer 119H 10/16/18 11:12: Glucometer 127H 10/16/18 16:01: Glucometer 198H 10/16/18 20:13: Glucometer 147H 10/17/18 06:15: Glucometer 103 10/17/18 11:46: Glucometer 163H 10/17/18 15:20: Glucometer 235H Microbiology 10/04/18 C. 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
[2018-10-17] MEDS: inSUlin DETERMIR 1 UNIT/0.01 ML (LEVEMIR) CHARGE PER UNIT SQ SCH (20:27)
[2018-10-17] MEDS: ASPIRIN E.C. 81 MG (ECOTRIN) TAB PO SCH (20:27)
[2018-10-17] MEDS: MELATONIN 3 MG TABLET PO SCH (20:27)
[2018-10-17] MEDS: ALPRAZolam 0.25 MG (XANAX) TAB PO PRN (20:27)
[2018-10-18 05:07] VITALS: BP 169/89
[2018-10-18] MEDS: metFORMIN 500 MG (GLUCOPHAGE) TAB PO SCH ×2 (06:20→16:57)
[2018-10-18] MEDS: MULTIVIT W/MINERALS TAB (THERAGRAN M) PO SCH (06:20)
[2018-10-18] MEDS: KCL 10 MEQ TAB (MICRO K) PO SCH (06:20)
[2018-10-18] MEDS: LACTOBACILLUS ACIDOPHILUS (PROBIOTIC) CAPSULE PO SCH (06:20)
[2018-10-18] MEDS: glyBURIDE 2.5 MG (MICRONASE) TAB PO SCH (06:20)
[2018-10-18] MEDS: BETHANECHOL 25 MG (URECHOLINE) TAB PO SCH ×4 (06:20→20:49)
[2018-10-18] MEDS: inSUlin ASPART (NovoLOG) 1 UNIT/0.01 ML (CHARGE PER UNIT) SC SCH ×4 (06:21→20:50)
--- NOTE | 2018-10-18 07:46 | PM&R Progress Note ---
Subjective This was a face to face visit with the patient. Date Seen by Provider: Oct 18, 2018 Time Seen by Provider: 07:35 Subjective/Events-last exam Patient was seen in her room this AM Having supplement in addition to breakfast.Patient min assist for transfers AM Accucheck better with decreased HS Insulin Objective Physician Exam Last Set of Vital Signs Vital Signs Date Time Temp Pulse Resp B/P (MAP) Pulse Ox O2 Delivery O2 Flow Rate FiO2 10/18/18 05:07 97.8 66 18 169/89 (115) 99 Room Air Capillary Refill : I&O Intake and Output 10/18/18 00:00 Intake Total 1050 ml Balance 1050 ml Intake Oral 1050 ml # Voids 7 # Bowel Movements 1 General: Alert, Oriented X3, Cooperative, No Acute Distress HEENT: Atraumatic, PERRLA, EOMI, Mucous Memb Moist/[place], Other (dysphagia) Neck: Supple, No JVD Lungs: Clear to Auscultation Heart: Regular Rate Abdomen: Normal Bowel Sounds, Soft, No Tenderness Extremities: No Edema Skin: No Rashes, No Breakdown, Other ([place] just d/cd for TOV) Neuro: Other (Strength 2 to 2+/5 Ble except Rt dorsiflexion 1/5 Weakness in both upper limbs as well) Results Lab Data Laboratory Tests 10/15/18 11:28: Glucometer 176H 10/15/18 15:58: Glucometer 165H 10/15/18 20:46: Glucometer 238H 10/16/18 05:32: Glucometer 119H 10/16/18 11:12: Glucometer 127H 10/16/18 16:01: Glucometer 198H 10/16/18 20:13: Glucometer 147H 10/17/18 06:15: Glucometer 103 10/17/18 11:46: Glucometer 163H 10/17/18 15:20: Glucometer 235H 10/17/18 20:24: Glucometer 147H 10/18/18 06:19: Glucometer 104 Microbiology 10/04/18 C. difficile GDH Antigen & Toxins - Final, Complete Assessment/Plan Assessment and Plan MS exacerbation s/p course of IV steroids OSH Dysphagia improving with diet advanced Urinary retention improved with voiding HTN controlled with meds DM with hypoglycemia improved with adjustment of HS dose Insulin HLP followed by ENDO Insomnia improved Plan Continue PT/OT/ST Team Conference tomorrow SW to meet with patient and spouse re expectation for functional level upon discharge Co-Morbidities that are continuing to impact the rehab process: (include details ) SHARA MITCHELL MD Oct 18, 2018 07:46
[2018-10-18] MEDS: FLUTICASONE NASAL SPRAY (FLONASE) 16 GM BTL NS SCH (08:46)
[2018-10-18] MEDS: meTOprolol TARTRATE 50 MG (LOPRESSOR) TAB PO SCH ×2 (08:46→20:50)
[2018-10-18] MEDS: METANX PO SCH ×2 (08:46→20:51)
[2018-10-18] MEDS: cloNIDine 0.1 MG (CATAPRES) TAB PO SCH ×3 (08:47→20:50)
[2018-10-18] MEDS: VITAMIN D3 1,000 UNITS (CHOLECALCIFEROL) TABLET PO SCH (08:47)
--- NOTE | 2018-10-18 09:31 | Physical Therapy Daily Note ---
PT Daily Note-Current Subjective Patient in bed pre tx, agrees to PT, no complaints of pain other than minor low back pain. Appearance Patient in bed post tx with nurse call, phone, tray, all needs met. Nurse in the room when therapy left. Mental Status Patient Orientation: Person, Confused, Place Transfers Therapy Code Descriptions/Definitions Functional [place] Measure: 0=Not Assessed/NA 4=Minimal Assistance 1=Total Assistance 5=Supervision or Setup 2=Maximal Assistance 6=Modified [place] 3=Moderate Assistance 7=Complete [place] Therapy Quality Codes: 6 Independent with activity with or without an assistive device 5 Patient requires set up or clean up by helper. Patient completes activity by themselves 4 Supervision or touching assist (CGA). [place] provide cues , steadying assist 3 The helper provides less than half the effort to complete the activity 2 The helper provides more than half the effort to complete the activity 1 Dependent. The helper does all the effort to complete an activity 7 Patient refused to complete or attempt activity 9 The patient did not perform the activity before the current illness or injury 88 Not attempted due to Medical conditions or safety concerns Transfers (B, C, W/C) (FIM): 3 Scootin Rollin Supine to/from Sit: 3 Sit to/from Stand: 4 Bed to/from Chair: 4 Patient required mod assist for bed mobility and supine <-> sit this morning, needed assist with both legs getting into and out of bed. Patient didn't seem to be able to initiate moving even with cues. Weight Bearing Right Lower Extremity: Right Full Weight Bearing Left Lower Extremity: Left Full Weight Bearing Gait Training Gait (FIM): 2 Distance: 120', 80'x2 Gait Level of Assist: 4 Gait Persons Needed: 1 Gait Assistive Device: FWW Min assist to help with walker when turning, patient ambulates in a slumped posture. Exercises Seated Therapy Exercises: Ankle pumps, Hip flexion Seated Reps: 20 LAQ alternating for 5 min, sit to stand x10 and then x5, patient could do no more than 5 on the second set Treatments bed mobility and transfers, ambulation, functional strengthening Assessment Current Status: Poor Progress Patient was very fatigued today, had a hard time initiating movement especially with bed mobility, had a hard time understanding cues PT Short Term Goals Short Term Goals Time Frame: Oct 17, 2018 Transfers (B,C,W/C) (FIM): 4 Gait (FIM): 2 Distance (FIM): 4=738-39 ft Gait Distance Comment: 50 ft Gait Level of Assist: 4 Gait Assistive Device: FWW Wheelchair Distance: 0 feet Stairs (FIM): 2 # of Steps: 1 PT Residential Goals International Logistics Manager Goals PT International Logistics Manager Goals Time Frame: Oct 31, 2018 Transfers (B,C,W/C) (FIM): 6 Sit to Lying (QC): 6 Lying-Sitting on Side/Bed(QC): 6 Sit to Stand (QC): 6 Rollin Roll Left to Right (QC): 6 Chair/Cza-nl-Luyjh Xfer(QC): 6 Car Transfer (QC): 5 Does the Patient Walk: No and Walking Goal IS indicated Gait (FIM): 6 Gait distance (FIM): 3=150 ft Walk 10 feet (QC): 6 Walk 10ft-Uneven Surface(QC): 5 Walk 50ft with 2 Turns (QC): 6 Walk 150 ft (QC): 6 Gait Level of Assist: 6 Gait Assistive Device: FWW Does the Pt use WC or Scooter?: Yes Wheelchair (FIM): 6 Wheelchair distance (FIM): 3=150 ft Wheel 50 feet with 2 turns (QC: 6 Stairs (FIM): 5 # of Steps: 4 1 Step (curb) (QC): 6 4 Steps (QC): 6 12 Steps (QC): 88 Picking up an Object (QC): 4 PT Plan Problem List Problem List: Activity Tolerance, Functional Strength, Safety, Balance, Gait, Transfer, Bed Mobility, ROM Treatment/Plan Treatment Plan: Continue Plan of Care Treatment Plan: Bed Mobility, Education, Functional Activity Shiv, Functional Strength, Group Therapy, Gait, Safety, Therapeutic Exercise, Transfers Treatment Duration: Oct 31, 2018 Frequency: At least 5 of 7 days/Wk (IRF) Estimated Hrs Per Day: 1.5 hours per day Patient and/or Family Agrees t: Yes Safety Risks/Education Patient Education: Gait Training, Transfer Techniques, Correct Positioning, Safety Issues Teaching Recipient: Patient Teaching Methods: Demonstration, Discussion Response to Teaching: Reinforcement Needed Time/GCodes Time In: 0800 Time Out: 0900 Total Billed Treatment Time: 60 Total Billed Treatment 1 visit GT 30' EX 30' PEBBLES BERRY PT Oct 18, 2018 09:31
--- NOTE | 2018-10-18 10:26 | Progress Note-Urology ---
Progress Note-Urology Progress Notes/Assess & Plan Progress/Assessment & Plan CONTINUES WELL ON DECREASING URECHOLINE. PLAN PER ORDERS Final Diagnosis URINE RETENTION OLI SMITH MD Oct 18, 2018 10:26
[2018-10-18] MEDS: ASCORBIC ACID (VIT C) 500 MG TABLET PO SCH (11:14)
[2018-10-18] MEDS: LOSARTAN 50 MG (COZAAR) TAB PO SCH (11:14)
[2018-10-18] MEDS: [UNRECOGNIZED DRUG - OTHER] PO SCH (11:16)
--- NOTE | 2018-10-18 11:52 | NUR ---
PT EATING FAIR, 50% MEALS. PT GETTING SUPPLEMENTS. WEIGHT SLIGHTLY DOWN, BUT GETTING STRONGER. CONT TO ENCOURAGE PO INTAKE.
--- NOTE | 2018-10-18 12:46 | Occupational Ther Daily Note ---
OT Current Status-Daily Note Subjective Pt alert, lying in bed. Pt agrees to therapy. No c/o pain at this time. Pt does state that she is tired and was able to do a lot in PT. Mental Status/Objective Patient Orientation: Person, Place, Time, Situation Therapy Code Descriptions/Definitions Functional [place] Measure: 0=Not Assessed/NA 4=Minimal Assistance 1=Total Assistance 5=Supervision or Setup 2=Maximal Assistance 6=Modified [place] 3=Moderate Assistance 7=Complete [place] ADL-Treatment Pt initiated turning toward R side in bed, assist needed to roll hips over. Mod A side lying to EOB. CGA using FWW to transfer to [facility]. Pt stood without FWW, CGA, to hike pants over hips. Pt required assist to get pants and socks off of feet and to thread onto feet. Pt able to pull up LE's and hike over hips. Pt able to complete sponge bathe after set up. Pt doffed/donned shirt with cues. Transferring to w/c, pt was transported to bathroom to sit in front of sink and complete grooming. Therapy Code Descriptions/Definitions Functional [place] Measure: 0=Not Assessed/NA 4=Minimal Assistance 1=Total Assistance 5=Supervision or Setup 2=Maximal Assistance 6=Modified [place] 3=Moderate Assistance 7=Complete [place] Therapy Quality Codes: 6 Independent with activity with or without an assistive device 5 Patient requires set up or clean up by helper. Patient completes activity by themselves 4 Supervision or touching assist (CGA). [place] provide cues , steadying assist 3 The helper provides less than half the effort to complete the activity 2 The helper provides more than half the effort to complete the activity 1 Dependent. The helper does all the effort to complete an activity 7 Patient refused to complete or attempt activity 9 The patient did not perform the activity before the current illness or injury 88 Not attempted due to Medical conditions or safety concerns Grooming (FIM): 6 Oral Hygiene (QC): 6 Upper Body (FIM): 4 Upper Body Dressing (QC): 3 Lower Body Dressing (FIM): 3 Lower Body Dressing (QC): 2 On/Off Footwear (QC): 2 Toileting (FIM): 4 Toileting Hygiene (QC): 4 Toilet/Commode Transfer (FIM): 4 Toilet Transfer (QC): 3 Other Treatment Transported pt to therapy gym. Completed theraputty exercise finding small item and placing in designated area to increase pinch and steam shovel operator strength for ADLs. Transported pt back to room via w/c. Pt ambulated from w/c to recliner using FWW, CGA. After therapy, pt sitting in recliner with present. set up meal. All needs met in room. OT Short Term Goals Short Term Goals Time Frame: Oct 17, 2018 Eating(FIM): 3 Grooming(FIM): 3 Bathing(FIM): 3 Upper Body Dressing(FIM): 4 Lower Body Dressing(FIM): 3 Toileting(FIM): 3 Transfers (B,C,W/C) (FIM): 4 Toilet/Commode Transfer(FIM): 4 Shower Transfer(FIM): 4 Additional Short Term Goals: 1-Demonstrate ADL Tasks, 2-Verbalize Understanding , 3-ImproveStrength/Shiv 1=Demonstrate adherence to instructed precautions during ADL tasks. 2=Patient will verbalize/demonstrate understanding of assistive devices/ modifications for ADL. 3=Patient will improve strength/tolerance for activity to enable patient to perform ADL's. OT Self Storage Manager Goals [facility] Goals Time Frame: Oct 31, 2018 Eating (FIM): 6 Eating (QC): 6 Groomin Oral Hygiene (QC): 5 Bathing(FIM): 5 Shower/Bathe Self (QC): 4 Upper Body Dressing(FIM): 5 Upper Body Dressing (QC): 5 Lower Body Dressing(FIM): 5 Lower Body Dressing (QC): 4 On/Off Footwear (QC): 4 Toileting(FIM): 6 Toileting Hygiene (QC): 6 Transfers (B,C,W/C) (FIM): 6 Toilet/Commode Transfer(FIM): 6 Toilet/Commode Transfer (QC): 6 Shower Transfer(FIM): 5 Additional Goals: 1-Demonstrate ADL Tasks, 2-Verbalize Understanding, 3- ImproveStrength/Shiv 1=Demonstrate adherence to instructed precautions during ADL tasks. 2=Patient will verbalize/demonstrate understanding of assistive devices/ modifications for ADL. 3=Patient will improve strength/tolerance for activity to enable patient to perform ADL's. OT Education/Plan Discharge Recommendations Plan/Recommendations: Continue POC Treatment Plan/Plan of Care Patient would benefit from OT for education, treatment and training to promote independence in ADL's, mobility, safety and/or upper extremity function for ADL' s. Plan of Care: ADL Retraining, Caregiver Training, Cognitive Retraining, Functional Mobility, Group Exercise/Act as Ind, UE Funct Exercise/Act Treatment Duration: Oct 31, 2018 Frequency: At least 5 of 7 days/Wk (IRF) Estimated Hrs Per Day: 1.5 hours per day Agreement: Yes Rehab Potential: Fair Time/GCodes Start Time: 11:00 Stop Time: 12:15 Total Time Billed (hr/min): 75 Billed Treatment Time 1 visit-ADL 4 (55 min) FA 1 (20 min) JORGE TERRY Oct 18, 2018 12:46
--- NOTE | 2018-10-18 14:57 | Physical Therapy Daily Note ---
PT Daily Note-Current Subjective Patient in recliner pre tx, agrees to PT, no complaints of pain. Appearance Patient in bed post tx with nurse call, phone, tray, all needs met. Patient on right side with pillow support. Mental Status Patient Orientation: Person, Confused, Place Transfers Therapy Code Descriptions/Definitions Functional [place] Measure: 0=Not Assessed/NA 4=Minimal Assistance 1=Total Assistance 5=Supervision or Setup 2=Maximal Assistance 6=Modified [place] 3=Moderate Assistance 7=Complete [place] Therapy Quality Codes: 6 Independent with activity with or without an assistive device 5 Patient requires set up or clean up by helper. Patient completes activity by themselves 4 Supervision or touching assist (CGA). [place] provide cues , steadying assist 3 The helper provides less than half the effort to complete the activity 2 The helper provides more than half the effort to complete the activity 1 Dependent. The helper does all the effort to complete an activity 7 Patient refused to complete or attempt activity 9 The patient did not perform the activity before the current illness or injury 88 Not attempted due to Medical conditions or safety concerns Transfers (B, C, W/C) (FIM): 3 Scootin Rollin Supine to/from Sit: 3 Sit to/from Stand: 4 Bed to/from Chair: 4 Patient performed 4 stand pivot transfers from bed or table to chair. Weight Bearing Right Lower Extremity: Right Full Weight Bearing Left Lower Extremity: Left Full Weight Bearing Exercises Supine Ex: Ankle pumps, Quad Set, Glut sets, Heel Slides, Short Arc Quads, Straight leg raise, Hip abd/add Supine Reps: 20 patient very weak this afternoon, exercises were AAROM Treatments bed mobility and transfers, AAROM Assessment Current Status: Poor Progress patient very weak today, poor initiation PT Short Term Goals Short Term Goals Time Frame: Oct 17, 2018 Transfers (B,C,W/C) (FIM): 4 Gait (FIM): 2 Distance (FIM): 4=340-81 ft Gait Distance Comment: 50 ft Gait Level of Assist: 4 Gait Assistive Device: FWW Wheelchair Distance: 0 feet Stairs (FIM): 2 # of Steps: 1 PT Assisted Goals Medical Safety Director Goals PT Assisted Goals Time Frame: Oct 31, 2018 Transfers (B,C,W/C) (FIM): 6 Sit to Lying (QC): 6 Lying-Sitting on Side/Bed(QC): 6 Sit to Stand (QC): 6 Rollin Roll Left to Right (QC): 6 Chair/Vuw-py-Hzolj Xfer(QC): 6 Car Transfer (QC): 5 Does the Patient Walk: No and Walking Goal IS indicated Gait (FIM): 6 Gait distance (FIM): 3=150 ft Walk 10 feet (QC): 6 Walk 10ft-Uneven Surface(QC): 5 Walk 50ft with 2 Turns (QC): 6 Walk 150 ft (QC): 6 Gait Level of Assist: 6 Gait Assistive Device: FWW Does the Pt use WC or Scooter?: Yes Wheelchair (FIM): 6 Wheelchair distance (FIM): 3=150 ft Wheel 50 feet with 2 turns (QC: 6 Stairs (FIM): 5 # of Steps: 4 1 Step (curb) (QC): 6 4 Steps (QC): 6 12 Steps (QC): 88 Picking up an Object (QC): 4 PT Plan Problem List Problem List: Activity Tolerance, Functional Strength, Safety, Balance, Gait, Transfer, Bed Mobility, ROM Treatment/Plan Treatment Plan: Continue Plan of Care Treatment Plan: Bed Mobility, Education, Functional Activity Shiv, Functional Strength, Group Therapy, Gait, Safety, Therapeutic Exercise, Transfers Treatment Duration: Oct 31, 2018 Frequency: At least 5 of 7 days/Wk (IRF) Estimated Hrs Per Day: 1.5 hours per day Patient and/or Family Agrees t: Yes Safety Risks/Education Patient Education: Transfer Techniques, Correct Positioning, Safety Issues Teaching Recipient: Patient Teaching Methods: Demonstration, Discussion Response to Teaching: Reinforcement Needed Time/GCodes Time In: 1430 Time Out: 1500 Total Billed Treatment Time: 30 Total Billed Treatment 1 visit FA 10' EX 20' PEBBLES BERRY PT Oct 18, 2018 14:57
[2018-10-18 15:42] VITALS: BP 173/84
--- NOTE | 2018-10-18 15:51 | Speech Therapy Daily Note ---
Speech Daily Progress Note Subjective Date Seen by Provider: Oct 18, 2018 Time Seen by Provider: 00:30 Patient was resting in her bed when I arrived for therapy. Objective Patient completed conversational tasks related to her return home with 80% accuracy with minimal cues. Assessment Assessment Current Status: Good Progress Treatment Plan Continue Plan of Care Communication Comprehension: 4 Expression: 4 Social Cognition Social Interaction: 3 Problem Solvin Memory: 3 Speech Short Term Goals Short Term Goals Short Term Goals 1) Patient will use appropriate linguistic forms to communicate in everyday situations, with 90% or greater accuracy. 2) Patient will identify functions of common items, with 90% or greater accuracy. 3) Patient will express her wants/needs effectively with 90% accuracy. Speech Assisted Goals Assisted Goals Patient will be able to effectively communicate within her immediate living environment at 90%. Speech-Plan Patient/Family Goals Patient/Family Goals: Patient plans to return home with her post rehab. Treatment Plan Speech Therapy Treatment Plan: Continue Plan of Care Patient is progressing well with skilled ST. Treatment Duration: Oct 21, 2018 Frequency: 5 times per week Estimated Hrs Per Day: .5 hour per day Rehab Potential: Fair Barriers to Learning: Patient continues to be weak and tires easily. Pt/Family Agrees to Plan: Yes Safety Risks/Education Teaching Recipient: Patient Teaching Methods: Discussion Response to Teaching: Verbalize Understanding Education Topics Provided: Safety. Time Speech Therapy Time In: 15:00 Speech Therapy Time Out: 15:30 Total Billed Time: 30 Billed Treatment Time 1KEREN BETHANIA ST Oct 18, 2018 15:51
--- NOTE | 2018-10-18 15:52 | NUR ---
Left message with Dr Barton bladder scan results post void was zero.
[2018-10-18] MEDS: glyBURIDE 5 MG (MICRONASE) TAB PO SCH (16:57)
--- NOTE | 2018-10-18 17:49 | NUR ---
Return call from Dr. Barton with orders to decrease Urecholine to BID.
[2018-10-18] MEDS: ALPRAZolam 0.25 MG (XANAX) TAB PO PRN (20:49)
[2018-10-18] MEDS: inSUlin DETERMIR 1 UNIT/0.01 ML (LEVEMIR) CHARGE PER UNIT SQ SCH (20:50)
[2018-10-18] MEDS: MELATONIN 3 MG TABLET PO SCH (20:50)
[2018-10-18] MEDS: ASPIRIN E.C. 81 MG (ECOTRIN) TAB PO SCH (20:50)
[2018-10-19 05:12] VITALS: BP 175/84
[2018-10-19] MEDS: metFORMIN 500 MG (GLUCOPHAGE) TAB PO SCH ×2 (06:14→16:53)
[2018-10-19] MEDS: glyBURIDE 2.5 MG (MICRONASE) TAB PO SCH (06:14)
[2018-10-19] MEDS: MULTIVIT W/MINERALS TAB (THERAGRAN M) PO SCH (06:14)
[2018-10-19] MEDS: inSUlin ASPART (NovoLOG) 1 UNIT/0.01 ML (CHARGE PER UNIT) SC SCH ×4 (06:14→20:39)
[2018-10-19] MEDS: LACTOBACILLUS ACIDOPHILUS (PROBIOTIC) CAPSULE PO SCH (06:14)
[2018-10-19] MEDS: KCL 10 MEQ TAB (MICRO K) PO SCH (06:14)
[2018-10-19] MEDS: VITAMIN D3 1,000 UNITS (CHOLECALCIFEROL) TABLET PO SCH (08:43)
[2018-10-19] MEDS: meTOprolol TARTRATE 50 MG (LOPRESSOR) TAB PO SCH ×2 (08:43→20:40)
[2018-10-19] MEDS: BETHANECHOL 25 MG (URECHOLINE) TAB PO SCH (08:43)
[2018-10-19] MEDS: METANX PO SCH ×2 (08:43→20:42)
[2018-10-19] MEDS: FLUTICASONE NASAL SPRAY (FLONASE) 16 GM BTL NS SCH (08:43)
[2018-10-19] MEDS: cloNIDine 0.1 MG (CATAPRES) TAB PO SCH ×3 (08:43→20:40)
--- NOTE | 2018-10-19 08:57 | Physical Therapy Daily Note ---
PT Daily Note-Current Subjective Patient in bed pre tx, agrees to PT, has some pain in her feet. Appearance Patient in recliner post tx with nurse call, phone, tray, all needs met. Mental Status Patient Orientation: Person, Place, Situation Transfers Therapy Code Descriptions/Definitions Functional [place] Measure: 0=Not Assessed/NA 4=Minimal Assistance 1=Total Assistance 5=Supervision or Setup 2=Maximal Assistance 6=Modified [place] 3=Moderate Assistance 7=Complete [place] Therapy Quality Codes: 6 Independent with activity with or without an assistive device 5 Patient requires set up or clean up by helper. Patient completes activity by themselves 4 Supervision or touching assist (CGA). [place] provide cues , steadying assist 3 The helper provides less than half the effort to complete the activity 2 The helper provides more than half the effort to complete the activity 1 Dependent. The helper does all the effort to complete an activity 7 Patient refused to complete or attempt activity 9 The patient did not perform the activity before the current illness or injury 88 Not attempted due to Medical conditions or safety concerns Transfers (B, C, W/C) (FIM): 3 Scootin Rollin Supine to/from Sit: 3 Sit to/from Stand: 4 Bed to/from Chair: 4 Min assist for scooting and mod for supine -> sit, CGA for sit to stand and transfers, cues for hand placement Weight Bearing Right Lower Extremity: Right Full Weight Bearing Left Lower Extremity: Left Full Weight Bearing Gait Training Gait (FIM): 2 Distance: 80'x2 Gait Level of Assist: 4 Gait Persons Needed: 1 Gait Assistive Device: FWW Patient ambulates with min assist mostly due to needing help guiding walker, ambulates with a slumped posture, slow ambulation short steps Stair Training Stair Training: Handrails/: 2 handrails Stairs (FIM): 2 #of Steps: 4 Level of Assist: 4 Exercises Seated Therapy Exercises: Ankle pumps, Long arc quads, Hip flexion Seated Reps: 20 NuStep Minutes: 15 NuStep Workload: 4 Treatments bed mobility and transfers, ambulation, functional strengthening Assessment Current Status: Fair Progress Much better progress today, better movement initiation PT Short Term Goals Short Term Goals Time Frame: Oct 17, 2018 Transfers (B,C,W/C) (FIM): 4 Gait (FIM): 2 Distance (FIM): 9=290-02 ft Gait Distance Comment: 50 ft Gait Level of Assist: 4 Gait Assistive Device: FWW Wheelchair Distance: 0 feet Stairs (FIM): 2 # of Steps: 1 PT Shelter Goals Experimental Assembler Goals PT Experimental Assembler Goals Time Frame: Oct 31, 2018 Transfers (B,C,W/C) (FIM): 6 Sit to Lying (QC): 6 Lying-Sitting on Side/Bed(QC): 6 Sit to Stand (QC): 6 Rollin Roll Left to Right (QC): 6 Chair/Eeh-rh-Mcqmw Xfer(QC): 6 Car Transfer (QC): 5 Does the Patient Walk: No and Walking Goal IS indicated Gait (FIM): 6 Gait distance (FIM): 3=150 ft Walk 10 feet (QC): 6 Walk 10ft-Uneven Surface(QC): 5 Walk 50ft with 2 Turns (QC): 6 Walk 150 ft (QC): 6 Gait Level of Assist: 6 Gait Assistive Device: FWW Does the Pt use WC or Scooter?: Yes Wheelchair (FIM): 6 Wheelchair distance (FIM): 3=150 ft Wheel 50 feet with 2 turns (QC: 6 Stairs (FIM): 5 # of Steps: 4 1 Step (curb) (QC): 6 4 Steps (QC): 6 12 Steps (QC): 88 Picking up an Object (QC): 4 PT Plan Problem List Problem List: Activity Tolerance, Functional Strength, Safety, Balance, Gait, Transfer, Bed Mobility, ROM Treatment/Plan Treatment Plan: Continue Plan of Care Treatment Plan: Bed Mobility, Education, Functional Activity Shiv, Functional Strength, Group Therapy, Gait, Safety, Therapeutic Exercise, Transfers Treatment Duration: Oct 31, 2018 Frequency: At least 5 of 7 days/Wk (IRF) Estimated Hrs Per Day: 1.5 hours per day Patient and/or Family Agrees t: Yes Safety Risks/Education Patient Education: Gait Training, Transfer Techniques, Correct Positioning, Safety Issues Teaching Recipient: Patient Teaching Methods: Demonstration, Discussion Response to Teaching: Reinforcement Needed Time/GCodes Time In: 0800 Time Out: 0900 Total Billed Treatment Time: 60 Total Billed Treatment 1 visit GT 20' FA 10' EX 30' PEBBLES BERRY PT Oct 19, 2018 08:57
--- NOTE | 2018-10-19 10:44 | Speech Therapy Daily Note ---
Speech Daily Progress Note Subjective Date Seen by Provider: Oct 19, 2018 Time Seen by Provider: 00:30 Patient was sitting up in her recliner resting when I arrived for ST. Objective Patient completed problem solving tasks related to her daily needs when she returns home with 90% accuracy. Assessment Assessment Current Status: Good Progress Treatment Plan Continue Plan of Care Communication Comprehension: 4 Expression: 4 Social Cognition Social Interaction: 3 Problem Solvin Memory: 3 Speech Short Term Goals Short Term Goals Short Term Goals 1) Patient will use appropriate linguistic forms to communicate in everyday situations, with 90% or greater accuracy. 2) Patient will identify functions of common items, with 90% or greater accuracy. 3) Patient will express her wants/needs effectively with 90% accuracy. Speech Mcc Goals Mcc Goals Patient will be able to effectively communicate within her immediate living environment at 90%. Speech-Plan Patient/Family Goals Patient/Family Goals: Patient plans to return home with her post rehab. Treatment Plan Speech Therapy Treatment Plan: Continue Plan of Care Patient is progressing well. She is wanting to return home prior to [place]. Treatment Duration: Oct 21, 2018 Frequency: 5 times per week Estimated Hrs Per Day: .5 hour per day Rehab Potential: Fair Barriers to Learning: Patient tires easily Pt/Family Agrees to Plan: Yes Safety Risks/Education Teaching Recipient: Patient Teaching Methods: Discussion Response to Teaching: Verbalize Understanding Education Topics Provided: Safety situations at her home Time Speech Therapy Time In: 09:00 Speech Therapy Time Out: 09:30 Total Billed Time: 30 Billed Treatment Time 1, KEREN MEJIAAYADHAILE ST Oct 19, 2018 10:44
[2018-10-19] MEDS: ASCORBIC ACID (VIT C) 500 MG TABLET PO SCH (10:50)
[2018-10-19] MEDS: [UNRECOGNIZED DRUG - OTHER] PO SCH (10:51)
[2018-10-19] MEDS: LOSARTAN 50 MG (COZAAR) TAB PO SCH (10:51)
--- NOTE | 2018-10-19 11:00 | Occupational Ther Daily Note ---
OT Current Status-Daily Note Subjective Pt alert, sitting in recliner. Pt agrees to therapy. No c/o pain at this time. C/o fatigue. Mental Status/Objective Patient Orientation: Person, Place, Time, Situation Therapy Code Descriptions/Definitions Functional [place] Measure: 0=Not Assessed/NA 4=Minimal Assistance 1=Total Assistance 5=Supervision or Setup 2=Maximal Assistance 6=Modified [place] 3=Moderate Assistance 7=Complete [place] ADL-Treatment Pt declined shower, requested to take one tomorrow. Pt stated that showers wore her out. Pt ambulated from recliner to bathroom then sat in w/c to complete grooming at sink. Therapy Code Descriptions/Definitions Functional [place] Measure: 0=Not Assessed/NA 4=Minimal Assistance 1=Total Assistance 5=Supervision or Setup 2=Maximal Assistance 6=Modified [place] 3=Moderate Assistance 7=Complete [place] Therapy Quality Codes: 6 Independent with activity with or without an assistive device 5 Patient requires set up or clean up by helper. Patient completes activity by themselves 4 Supervision or touching assist (CGA). [place] provide cues , steadying assist 3 The helper provides less than half the effort to complete the activity 2 The helper provides more than half the effort to complete the activity 1 Dependent. The helper does all the effort to complete an activity 7 Patient refused to complete or attempt activity 9 The patient did not perform the activity before the current illness or injury 88 Not attempted due to Medical conditions or safety concerns Grooming (FIM): 6 Oral Hygiene (QC): 6 Other Treatment Pt takes increased time to complete all tasks due to decreased activity tolerance and slow mobility. Pt was transported via w/c to therapy gym. Arm bike completed with light resistance to increase UE strength and activity tolerance for daily functional tasks. Timer was set for 8 min though pt had multiple breaks which stopped the timer. Slow rotation of handles which stopped the timer. Pt completed the 8 minute initial time in 15 min. After therapy, pt sitting in recliner with nrsg in room. Nrsg to give meds then transfer pt back to bed. All needs met in room. OT Short Term Goals Short Term Goals Time Frame: Oct 17, 2018 Eating(FIM): 3 Grooming(FIM): 3 Bathing(FIM): 3 Upper Body Dressing(FIM): 4 Lower Body Dressing(FIM): 3 Toileting(FIM): 3 Transfers (B,C,W/C) (FIM): 4 Toilet/Commode Transfer(FIM): 4 Shower Transfer(FIM): 4 Additional Short Term Goals: 1-Demonstrate ADL Tasks, 2-Verbalize Understanding , 3-ImproveStrength/Shiv 1=Demonstrate adherence to instructed precautions during ADL tasks. 2=Patient will verbalize/demonstrate understanding of assistive devices/ modifications for ADL. 3=Patient will improve strength/tolerance for activity to enable patient to perform ADL's. OT Outsole Molder Goals Skilled Nursing Goals Time Frame: Oct 31, 2018 Eating (FIM): 6 Eating (QC): 6 Groomin Oral Hygiene (QC): 5 Bathing(FIM): 5 Shower/Bathe Self (QC): 4 Upper Body Dressing(FIM): 5 Upper Body Dressing (QC): 5 Lower Body Dressing(FIM): 5 Lower Body Dressing (QC): 4 On/Off Footwear (QC): 4 Toileting(FIM): 6 Toileting Hygiene (QC): 6 Transfers (B,C,W/C) (FIM): 6 Toilet/Commode Transfer(FIM): 6 Toilet/Commode Transfer (QC): 6 Shower Transfer(FIM): 5 Additional Goals: 1-Demonstrate ADL Tasks, 2-Verbalize Understanding, 3- ImproveStrength/Shiv 1=Demonstrate adherence to instructed precautions during ADL tasks. 2=Patient will verbalize/demonstrate understanding of assistive devices/ modifications for ADL. 3=Patient will improve strength/tolerance for activity to enable patient to perform ADL's. OT Education/Plan Discharge Recommendations Plan/Recommendations: Continue POC Treatment Plan/Plan of Care Patient would benefit from OT for education, treatment and training to promote independence in ADL's, mobility, safety and/or upper extremity function for ADL' s. Plan of Care: ADL Retraining, Caregiver Training, Cognitive Retraining, Functional Mobility, Group Exercise/Act as Ind, UE Funct Exercise/Act Treatment Duration: Oct 31, 2018 Frequency: At least 5 of 7 days/Wk (IRF) Estimated Hrs Per Day: 1.5 hours per day Agreement: Yes Rehab Potential: Fair Time/GCodes Start Time: 10:00 Stop Time: 11:00 Total Time Billed (hr/min): 60 Billed Treatment Time 1 visit-ADL 3 (45 min) EX 1 (15 min) JORGE TERRY Oct 19, 2018 11:00
--- NOTE | 2018-10-19 14:34 | Therapy Group Daily Note ---
Therapy Daily Group Note Patient Education Topic Home Safety Exercises LE Seated Exercise, UE Exercise Other/Notes Pt transported via w/c to [facility] for group. Group consisted of introductions (name, place born, favorite [place] movie), socialization, pt led UE/LE seated exercises, ARU description and home safety education. Pt introduced self appropriately and actively listened to peers. Pt was able to complete UE/LE pt led exercises. Pt verbalized understanding of educational topics and was able to contribute own strategies for home safety. Pt initiated discussions and was able to contribute to peer conversations throughout group. After therapy, pt lying in bed with call light/phone in reach. All needs met in room. Start Time: 13:00 Stop Time: 14:10 Total Billed Treatment Time: 70 Total Billed Treatment 1-GRP JORGE TERRY Oct 19, 2018 14:34
[2018-10-19] MEDS: glyBURIDE 5 MG (MICRONASE) TAB PO SCH (16:53)
--- NOTE | 2018-10-19 16:58 | NUR ---
post op void residue 52cc , Dr. Barton notified orders for urecholine 25mg daily
[2018-10-19 18:17] VITALS: BP 154/83
--- NOTE | 2018-10-19 18:45 | PM&R Progress Note ---
Subjective This was a face to face visit with the patient. Date Seen by Provider: Oct 19, 2018 Time Seen by Provider: 08:00 Subjective/Events-last exam Patient was seen in her room this AM Eating better Patient min to mod assist for transfers Appreciate DR Guzman note Patient voiding and Urecholine being tapered Date Identified: Oct 19, 2018 Time Identified: 15:00 Medication Intervention: Urecholine being tapered by DR arias Review of Systems Neurological: Weakness Objective Physician Exam Last Set of Vital Signs Vital Signs Date Time Temp Pulse Resp B/P (MAP) Pulse Ox O2 Delivery O2 Flow Rate FiO2 10/19/18 18:17 97.4 68 18 154/83 (106) 97 Room Air Capillary Refill : I&O Intake and Output 10/19/18 00:00 Intake Total 650 ml Balance 650 ml Intake Oral 650 ml # Voids 7 General: Alert, Oriented X3, Cooperative, No Acute Distress HEENT: Atraumatic, PERRLA, EOMI, Mucous Memb Moist/[place], Other (dysphagia) Neck: Supple, No JVD Lungs: Clear to Auscultation Heart: Regular Rate Abdomen: Normal Bowel Sounds, Soft, No Tenderness Extremities: No Edema Skin: No Rashes, No Breakdown, Other ([place] just d/cd for TOV) Neuro: Other (Strength 2 to 2+/5 Ble except Rt dorsiflexion 1/5 Weakness in both upper limbs as well) Results Lab Data Laboratory Tests 10/16/18 20:13: Glucometer 147H 10/17/18 06:15: Glucometer 103 10/17/18 11:46: Glucometer 163H 10/17/18 15:20: Glucometer 235H 10/17/18 20:24: Glucometer 147H 10/18/18 06:19: Glucometer 104 10/18/18 10:54: Glucometer 232H 10/18/18 15:39: Glucometer 170H 10/18/18 20:46: Glucometer 248H 10/19/18 06:11: Glucometer 113H 10/19/18 11:00: Glucometer 131H 10/19/18 16:14: Glucometer 210H Microbiology 10/04/18 C. 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
--- NOTE | 2018-10-19 20:18 | NUR ---
TITLE I PARAPROFESSIONAL met with patient and spouse conference. As patient continue progress with increased motivation and self initiation, team has recommended that patients status be re-evaluated at next team conference on 10/27. Patient continues to require min to mod assist for transfers, max assist for lower body dressing and min assist for upper body activities. Although patient may not require Mod I status with all activities prior to discharge, patient's spouse is very supportive and available to assist. TITLE I PARAPROFESSIONAL will continue to follow progress. Addendum: 10/19/18 at 2052 by HALLIE PLASCENCIA errors in previous note: TITLE I PARAPROFESSIONAL met with patient and spouse to review Team Conference Summary. As patient continues to progress, with increased motivation and self initiation, team has recommended that patients status be re-evaluated at next team conference on 10/27. Patient continues to require min to mod assist for transfers, max assist for lower body dressing and min assist for upper body activities. Although patient may not reach Mod I status with all activities prior to discharge, patient's spouse is very supportive and available to assist. TITLE I PARAPROFESSIONAL will continue to follow progress.
[2018-10-19] MEDS: inSUlin DETERMIR 1 UNIT/0.01 ML (LEVEMIR) CHARGE PER UNIT SQ SCH (20:39)
[2018-10-19] MEDS: MELATONIN 3 MG TABLET PO SCH (20:40)
[2018-10-19] MEDS: ASPIRIN E.C. 81 MG (ECOTRIN) TAB PO SCH (20:40)
[2018-10-19] MEDS: ALPRAZolam 0.25 MG (XANAX) TAB PO PRN (20:43)
[2018-10-20 06:00] VITALS: BP 165/85
[2018-10-20] MEDS: LACTOBACILLUS ACIDOPHILUS (PROBIOTIC) CAPSULE PO SCH (06:54)
[2018-10-20] MEDS: metFORMIN 500 MG (GLUCOPHAGE) TAB PO SCH ×2 (06:54→17:41)
[2018-10-20] MEDS: glyBURIDE 2.5 MG (MICRONASE) TAB PO SCH (06:54)
[2018-10-20] MEDS: inSUlin ASPART (NovoLOG) 1 UNIT/0.01 ML (CHARGE PER UNIT) SC SCH ×4 (06:54→20:24)
[2018-10-20] MEDS: MULTIVIT W/MINERALS TAB (THERAGRAN M) PO SCH (06:54)
[2018-10-20] MEDS: KCL 10 MEQ TAB (MICRO K) PO SCH (06:55)
--- NOTE | 2018-10-20 08:33 | PM&R Progress Note ---
Subjective This was a face to face visit with the patient. Date Seen by Provider: Oct 20, 2018 Time Seen by Provider: 07:30 Subjective/Events-last exam Patient was seen in her room this AM Sleeping better strength and endurance improving.Patient min to mod assist for transfers Objective Physician Exam Last Set of Vital Signs Vital Signs Date Time Temp Pulse Resp B/P (MAP) Pulse Ox O2 Delivery O2 Flow Rate FiO2 10/20/18 06:00 97.6 72 18 165/85 (111) 98 Room Air Capillary Refill : I&O Intake and Output 10/20/18 00:00 Intake Total 325 ml Balance 325 ml Intake Oral 325 ml # Voids 6 General: Alert, Oriented X3, Cooperative, No Acute Distress HEENT: Atraumatic, PERRLA, EOMI, Mucous Memb Moist/[place], Other (dysphagia) Neck: Supple, No JVD Lungs: Clear to Auscultation Heart: Regular Rate Abdomen: Normal Bowel Sounds, Soft, No Tenderness Extremities: No Edema Skin: No Rashes, No Breakdown, Other ([place] just d/cd for TOV) Neuro: Other (Strength 2 to 2+/5 Ble except Rt dorsiflexion 1/5 Weakness in both upper limbs as well) Results Lab Data Laboratory Tests 10/17/18 11:46: Glucometer 163H 10/17/18 15:20: Glucometer 235H 10/17/18 20:24: Glucometer 147H 10/18/18 06:19: Glucometer 104 10/18/18 10:54: Glucometer 232H 10/18/18 15:39: Glucometer 170H 10/18/18 20:46: Glucometer 248H 10/19/18 06:11: Glucometer 113H 10/19/18 11:00: Glucometer 131H 10/19/18 16:14: Glucometer 210H 10/19/18 20:28: Glucometer 186H 10/20/18 06:53: Glucometer 117H Microbiology 10/04/18 C. difficile GDH Antigen & Toxins - Final, Complete Assessment/Plan Assessment and Plan MS exacerbation s/p course of Steroids improving Dysphagia improving Urinary retention improved HTN controlled DM with hypoglycemia improved with adjustment in HS Insulin HLP followed by ENDO [place] Insomnia improved with meds Plan Continue PT/OT/ST Monitor for urinary retention F/U with Hospitalist service and prn DR Martinez covering my service from 10-26-18 til 10-28-18 12 noon Team Conference held yesterday see report for full functional update and POC ELOS 10-31-18 Co-Morbidities that are continuing to impact the rehab process: (include details ) SHARA MITCHELL MD Oct 20, 2018 08:33
[2018-10-20] MEDS: FLUTICASONE NASAL SPRAY (FLONASE) 16 GM BTL NS SCH (08:34)
[2018-10-20] MEDS: METANX PO SCH ×2 (08:35→20:22)
[2018-10-20] MEDS: VITAMIN D3 1,000 UNITS (CHOLECALCIFEROL) TABLET PO SCH (08:35)
[2018-10-20] MEDS: cloNIDine 0.1 MG (CATAPRES) TAB PO SCH ×3 (08:35→20:24)
[2018-10-20] MEDS: meTOprolol TARTRATE 50 MG (LOPRESSOR) TAB PO SCH ×2 (08:35→20:25)
--- NOTE | 2018-10-20 08:58 | Physical Therapy Daily Note ---
PT Daily Note-Current Subjective Patient in bed pre tx, agrees to PT, no complaints of pain. Appearance Patient in bed post tx with nurse call, phone, tray, all needs met. Mental Status Patient Orientation: Person, Place, Situation Transfers Therapy Code Descriptions/Definitions Functional [place] Measure: 0=Not Assessed/NA 4=Minimal Assistance 1=Total Assistance 5=Supervision or Setup 2=Maximal Assistance 6=Modified [place] 3=Moderate Assistance 7=Complete [place] Therapy Quality Codes: 6 Independent with activity with or without an assistive device 5 Patient requires set up or clean up by helper. Patient completes activity by themselves 4 Supervision or touching assist (CGA). [place] provide cues , steadying assist 3 The helper provides less than half the effort to complete the activity 2 The helper provides more than half the effort to complete the activity 1 Dependent. The helper does all the effort to complete an activity 7 Patient refused to complete or attempt activity 9 The patient did not perform the activity before the current illness or injury 88 Not attempted due to Medical conditions or safety concerns Transfers (B, C, W/C) (FIM): 3 Scootin Rollin Supine to/from Sit: 3 Sit to/from Stand: 4 Bed to/from Chair: 4 Cues for hand placement and positioning Weight Bearing Right Lower Extremity: Right Full Weight Bearing Left Lower Extremity: Left Full Weight Bearing Gait Training Gait (FIM): 2 Distance: 120', 100' Gait Level of Assist: 4 Gait Persons Needed: 1 Gait Assistive Device: FWW Min assist to help guide walker when turning, needs cues to stay close to the walker. Exercises Seated Therapy Exercises: Ankle pumps, Hip flexion Seated Reps: 20 Standing: Hamstring curls, Heel/toe raises, 3 way Ex=Flex, Abd, Ext (not extension), Marching, Mini squats, Step-ups (x10) Standing Reps: 15 LAQ alternating for 5 min Treatments bed mobility and transfers, ambulation, functional strengthening Assessment Current Status: Fair Progress Improving endurance but patient was very fatigued after treatment and had some trouble with movement initiation. PT Short Term Goals Short Term Goals Time Frame: Oct 17, 2018 Transfers (B,C,W/C) (FIM): 4 Gait (FIM): 2 Distance (FIM): 6=348-44 ft Gait Distance Comment: 50 ft Gait Level of Assist: 4 Gait Assistive Device: FWW Wheelchair Distance: 0 feet Stairs (FIM): 2 # of Steps: 1 PT Utility Driver Goals Utility Driver Goals PT Utility Driver Goals Time Frame: Oct 31, 2018 Transfers (B,C,W/C) (FIM): 6 Sit to Lying (QC): 6 Lying-Sitting on Side/Bed(QC): 6 Sit to Stand (QC): 6 Rollin Roll Left to Right (QC): 6 Chair/Uys-my-Mgcvp Xfer(QC): 6 Car Transfer (QC): 5 Does the Patient Walk: No and Walking Goal IS indicated Gait (FIM): 6 Gait distance (FIM): 3=150 ft Walk 10 feet (QC): 6 Walk 10ft-Uneven Surface(QC): 5 Walk 50ft with 2 Turns (QC): 6 Walk 150 ft (QC): 6 Gait Level of Assist: 6 Gait Assistive Device: FWW Does the Pt use WC or Scooter?: Yes Wheelchair (FIM): 6 Wheelchair distance (FIM): 3=150 ft Wheel 50 feet with 2 turns (QC: 6 Stairs (FIM): 5 # of Steps: 4 1 Step (curb) (QC): 6 4 Steps (QC): 6 12 Steps (QC): 88 Picking up an Object (QC): 4 PT Plan Problem List Problem List: Activity Tolerance, Functional Strength, Safety, Balance, Gait, Transfer, Bed Mobility, ROM Treatment/Plan Treatment Plan: Continue Plan of Care Treatment Plan: Bed Mobility, Education, Functional Activity Shiv, Functional Strength, Group Therapy, Gait, Safety, Therapeutic Exercise, Transfers Treatment Duration: Oct 31, 2018 Frequency: At least 5 of 7 days/Wk (IRF) Estimated Hrs Per Day: 1.5 hours per day Patient and/or Family Agrees t: Yes Safety Risks/Education Patient Education: Gait Training, Transfer Techniques, Correct Positioning, Safety Issues Teaching Recipient: Patient Teaching Methods: Demonstration, Discussion Response to Teaching: Reinforcement Needed Time/GCodes Time In: 0800 Time Out: 0900 Total Billed Treatment Time: 60 Total Billed Treatment 1 visit GT 20' FA 10' EX 30' PEBBLES BERRY PT Oct 20, 2018 08:58
[2018-10-20] MEDS ORDERED: BETHANECHOL 25 MG (URECHOLINE) TAB PO SCH (09:00)
--- NOTE | 2018-10-20 11:08 | Progress Note-Urology ---
Progress Note-Urology Progress Notes/Assess & Plan Progress/Assessment & Plan PVR YESTERDAY 50CC. URECHOLINE DECREASED TO ONCE A DAY Final Diagnosis URINE RETENTION OLI SMITH MD Oct 20, 2018 11:08
--- NOTE | 2018-10-20 11:16 | Speech Therapy Daily Note ---
Speech Daily Progress Note Subjective Date Seen by Provider: Oct 20, 2018 Time Seen by Provider: 00:30 Patient was resting in bed following PT this am. Objective Patient completed memory tasks at 80% with min to mod repetitions and/or verbal cues. Assessment Assessment Current Status: Good Progress Treatment Plan Continue Plan of Care Communication Comprehension: 4 Expression: 4 Social Cognition Social Interaction: 3 Problem Solvin Memory: 3 Speech Short Term Goals Short Term Goals Short Term Goals 1) Patient will use appropriate linguistic forms to communicate in everyday situations, with 90% or greater accuracy. 2) Patient will identify functions of common items, with 90% or greater accuracy. 3) Patient will express her wants/needs effectively with 90% accuracy. Speech Shelter Goals Shelter Goals Patient will be able to effectively communicate within her immediate living environment at 90%. Speech-Plan Patient/Family Goals Patient/Family Goals: Patient plans to return home with her post rehab. Treatment Plan Speech Therapy Treatment Plan: Continue Plan of Care Patient is anxious about not being home before Marceline. Treatment Duration: Oct 28, 2018 Frequency: 5 times per week Estimated Hrs Per Day: .5 hour per day Rehab Potential: Fair Barriers to Learning: Patient tires easily. Pt/Family Agrees to Plan: Yes Safety Risks/Education Teaching Recipient: Patient Teaching Methods: Discussion Response to Teaching: Verbalize Understanding Education Topics Provided: Safety within her room. Time Speech Therapy Time In: 09:00 Speech Therapy Time Out: 09:30 Total Billed Time: 30 Billed Treatment Time 1[address] Oct 20, 2018 11:16
--- NOTE | 2018-10-20 12:07 | Occupational Ther Daily Note ---
OT Current Status-Daily Note Subjective Pt alert, lying in bed. Pt agrees to therapy. Pt c/o fatigue from working with PT earlier in am. No c/o pain at this time. Mental Status/Objective Patient Orientation: Person, Place, Time, Situation Therapy Code Descriptions/Definitions Functional [place] Measure: 0=Not Assessed/NA 4=Minimal Assistance 1=Total Assistance 5=Supervision or Setup 2=Maximal Assistance 6=Modified [place] 3=Moderate Assistance 7=Complete [place] ADL-Treatment Pt agrees to shower. Mod A for supine to EOB. Pt ambulated into bathroom using FWW with min A. Verbal cues and min A to transfer into shower. Pt states that she has a tub at home, will work on tub bench transfers. After set up, pt able to complete all areas of bathing using shower chair, grabbars and hand held shower. Verbal cues are needed to instruct cleansing of areas missed , placing feet up to wash feet and rinse areas missed. CGA in standing while pt cleanses buttocks/lauir area. Pt dries most of self then assist to dry hair. Pt was introduced to AE for lower body dressing. Pt still is working on increasing UE strength to push clothes off with dressing stick and pull socks on with sock aide. CGA in standing for pt to hike pants over hips. Sitting at sink, pt able to complete own grooming. After therapy, pt sitting in recliner with present in room. Call light/phone in reach. All needs met in room. Therapy Code Descriptions/Definitions Functional [place] Measure: 0=Not Assessed/NA 4=Minimal Assistance 1=Total Assistance 5=Supervision or Setup 2=Maximal Assistance 6=Modified [place] 3=Moderate Assistance 7=Complete [place] Therapy Quality Codes: 6 Independent with activity with or without an assistive device 5 Patient requires set up or clean up by helper. Patient completes activity by themselves 4 Supervision or touching assist (CGA). [place] provide cues , steadying assist 3 The helper provides less than half the effort to complete the activity 2 The helper provides more than half the effort to complete the activity 1 Dependent. The helper does all the effort to complete an activity 7 Patient refused to complete or attempt activity 9 The patient did not perform the activity before the current illness or injury 88 Not attempted due to Medical conditions or safety concerns Grooming (FIM): 6 Oral Hygiene (QC): 6 Bathing (FIM): 4 Bathing Location: L Arm, R Arm, L Upper Leg, R Upper Leg, L Lower Leg ( including foot), R Lower Leg (including foot), Chest, Abdomen, Buttocks, Perineal Area Shower/Bathe Self (QC): 3 Upper Body (FIM): 4 (Increased time. Pt able to complete doffing shirt by self. Today pt had difficulty with threading arms into sleeves after placing over head first.) Upper Body Dressing (QC): 3 Lower Body Dressing (FIM): 3 Lower Body Dressing (QC): 3 On/Off Footwear (QC): 2 Shower Transfer(FIM): 4 OT Short Term Goals Short Term Goals Time Frame: Oct 17, 2018 Eating(FIM): 3 Grooming(FIM): 3 Bathing(FIM): 3 Upper Body Dressing(FIM): 4 Lower Body Dressing(FIM): 3 Toileting(FIM): 3 Transfers (B,C,W/C) (FIM): 4 Toilet/Commode Transfer(FIM): 4 Shower Transfer(FIM): 4 Additional Short Term Goals: 1-Demonstrate ADL Tasks, 2-Verbalize Understanding , 3-ImproveStrength/Shiv 1=Demonstrate adherence to instructed precautions during ADL tasks. 2=Patient will verbalize/demonstrate understanding of assistive devices/ modifications for ADL. 3=Patient will improve strength/tolerance for activity to enable patient to perform ADL's. OT [place] Boatman Goals [place] Boatman Goals Time Frame: Oct 31, 2018 Eating (FIM): 6 Eating (QC): 6 Groomin Oral Hygiene (QC): 5 Bathing(FIM): 5 Shower/Bathe Self (QC): 4 Upper Body Dressing(FIM): 5 Upper Body Dressing (QC): 5 Lower Body Dressing(FIM): 5 Lower Body Dressing (QC): 4 On/Off Footwear (QC): 4 Toileting(FIM): 6 Toileting Hygiene (QC): 6 Transfers (B,C,W/C) (FIM): 6 Toilet/Commode Transfer(FIM): 6 Toilet/Commode Transfer (QC): 6 Shower Transfer(FIM): 5 Additional Goals: 1-Demonstrate ADL Tasks, 2-Verbalize Understanding, 3- ImproveStrength/Shiv 1=Demonstrate adherence to instructed precautions during ADL tasks. 2=Patient will verbalize/demonstrate understanding of assistive devices/ modifications for ADL. 3=Patient will improve strength/tolerance for activity to enable patient to perform ADL's. OT Education/Plan Discharge Recommendations Plan/Recommendations: Continue POC Treatment Plan/Plan of Care Patient would benefit from OT for education, treatment and training to promote independence in ADL's, mobility, safety and/or upper extremity function for ADL' s. Plan of Care: ADL Retraining, Caregiver Training, Cognitive Retraining, Functional Mobility, Group Exercise/Act as Ind, UE Funct Exercise/Act Treatment Duration: Oct 31, 2018 Frequency: At least 5 of 7 days/Wk (IRF) Estimated Hrs Per Day: 1.5 hours per day Agreement: Yes Rehab Potential: Fair Time/GCodes Start Time: 10:30 Stop Time: 12:00 Total Time Billed (hr/min): 90 Billed Treatment Time 1 visit-ADL 6 (90 min) JORGE TERRY Oct 20, 2018 12:07
[2018-10-20] MEDS: [UNRECOGNIZED DRUG - OTHER] PO SCH (12:11)
[2018-10-20] MEDS: ASCORBIC ACID (VIT C) 500 MG TABLET PO SCH (12:13)
[2018-10-20] MEDS: LOSARTAN 50 MG (COZAAR) TAB PO SCH (12:14)
--- NOTE | 2018-10-20 15:17 | Physical Therapy Daily Note ---
PT Daily Note-Current Subjective Agrees to PT. Acknowledges that she is making good progress. Transfers Therapy Code Descriptions/Definitions Functional [place] Measure: 0=Not Assessed/NA 4=Minimal Assistance 1=Total Assistance 5=Supervision or Setup 2=Maximal Assistance 6=Modified [place] 3=Moderate Assistance 7=Complete [place] Therapy Quality Codes: 6 Independent with activity with or without an assistive device 5 Patient requires set up or clean up by helper. Patient completes activity by themselves 4 Supervision or touching assist (CGA). [place] provide cues , steadying assist 3 The helper provides less than half the effort to complete the activity 2 The helper provides more than half the effort to complete the activity 1 Dependent. The helper does all the effort to complete an activity 7 Patient refused to complete or attempt activity 9 The patient did not perform the activity before the current illness or injury 88 Not attempted due to Medical conditions or safety concerns Sit to stand all attempts with CGA with occas reminders for hand placement. On/ off the Nu step with min assist. Sit to supine with min assist and assist to scoot up in bed. Requires heavy cues to sequence for bed positioning. Weight Bearing Right Lower Extremity: Right Full Weight Bearing Left Lower Extremity: Left Full Weight Bearing Gait Training Does the Patient Walk?: Yes Gait (FIM): 2 Distance (FIM): 8=027-24 ft Distance: 120 ft x 2 Exercises NuStep Minutes: 10 Treatments Fucntional transfers and gait; LE ther ex to promote strength for transfers as well as functional activitiy tolerance. Assessment Current Status: Good Progress PT Short Term Goals Short Term Goals Time Frame: Oct 17, 2018 Transfers (B,C,W/C) (FIM): 4 Gait (FIM): 2 (met) Distance (FIM): 8=852-99 ft Gait Distance Comment: 50 ft Gait Level of Assist: 4 Gait Assistive Device: FWW Wheelchair Distance: 0 feet Stairs (FIM): 2 # of Steps: 1 PT Intermediate Goals Leasing Consultant Goals PT Leasing Consultant Goals Time Frame: Oct 31, 2018 Transfers (B,C,W/C) (FIM): 6 Sit to Lying (QC): 6 Lying-Sitting on Side/Bed(QC): 6 Sit to Stand (QC): 6 Rollin Roll Left to Right (QC): 6 Chair/Roj-lm-Fzlbe Xfer(QC): 6 Car Transfer (QC): 5 Does the Patient Walk: No and Walking Goal IS indicated Gait (FIM): 6 Gait distance (FIM): 3=150 ft Walk 10 feet (QC): 6 Walk 10ft-Uneven Surface(QC): 5 Walk 50ft with 2 Turns (QC): 6 Walk 150 ft (QC): 6 Gait Level of Assist: 6 Gait Assistive Device: FWW Does the Pt use WC or Scooter?: Yes Wheelchair (FIM): 6 Wheelchair distance (FIM): 3=150 ft Wheel 50 feet with 2 turns (QC: 6 Stairs (FIM): 5 # of Steps: 4 1 Step (curb) (QC): 6 4 Steps (QC): 6 12 Steps (QC): 88 Picking up an Object (QC): 4 PT Plan Problem List Problem List: Activity Tolerance, Functional Strength, Safety, Balance, Gait, Transfer, Bed Mobility Treatment/Plan Treatment Plan: Continue Plan of Care Treatment Plan: Bed Mobility, Education, Functional Activity Shiv, Functional Strength, Group Therapy, Gait, Safety, Therapeutic Exercise, Transfers Treatment Duration: Oct 31, 2018 Frequency: At least 5 of 7 days/Wk (IRF) Estimated Hrs Per Day: 1.5 hours per day Patient and/or Family Agrees t: Yes Safety Risks/Education Patient Education: Transfer Techniques, Safety Issues Teaching Recipient: Patient Teaching Methods: Demonstration, Discussion Response to Teaching: Reinforcement Needed Time/GCodes Time In: 1300 Time Out: 1330 Total Billed Treatment Time: 30 Total Billed Treatment visit GT 20 EX 10 JORGE WINCHESTER PT Oct 20, 2018 15:17
[2018-10-20 15:23] VITALS: BP 176/79
[2018-10-20] MEDS: glyBURIDE 5 MG (MICRONASE) TAB PO SCH (17:41)
[2018-10-20] MEDS: ALPRAZolam 0.25 MG (XANAX) TAB PO PRN (20:23)
[2018-10-20] MEDS: ASPIRIN E.C. 81 MG (ECOTRIN) TAB PO SCH (20:24)
[2018-10-20] MEDS: MELATONIN 3 MG TABLET PO SCH (20:24)
[2018-10-20 20:25] VITALS: BP 173/79
--- NOTE | 2018-10-20 20:27 | NUR ---
Patient and spouse have requested day pass for . This will be beneficial for patient's motivation. Camren will likely need a short day pass due to endurance; however, with family support this outing will be extremely helpful for her progress.
[2018-10-20] MEDS: inSUlin DETERMIR 1 UNIT/0.01 ML (LEVEMIR) CHARGE PER UNIT SQ SCH (20:29)
[2018-10-21 05:06] VITALS: BP 189/89
[2018-10-21] MEDS: inSUlin ASPART (NovoLOG) 1 UNIT/0.01 ML (CHARGE PER UNIT) SC SCH ×4 (06:10→20:57)
[2018-10-21] MEDS: KCL 10 MEQ TAB (MICRO K) PO SCH (06:11)
[2018-10-21] MEDS: metFORMIN 500 MG (GLUCOPHAGE) TAB PO SCH ×2 (06:11→16:37)
[2018-10-21] MEDS: LACTOBACILLUS ACIDOPHILUS (PROBIOTIC) CAPSULE PO SCH (06:11)
[2018-10-21] MEDS: glyBURIDE 2.5 MG (MICRONASE) TAB PO SCH (06:11)
[2018-10-21] MEDS: MULTIVIT W/MINERALS TAB (THERAGRAN M) PO SCH (06:11)
[2018-10-21] MEDS: meTOprolol TARTRATE 50 MG (LOPRESSOR) TAB PO SCH ×2 (08:55→20:50)
[2018-10-21] MEDS: cloNIDine 0.1 MG (CATAPRES) TAB PO SCH ×3 (08:55→20:50)
[2018-10-21] MEDS: VITAMIN D3 1,000 UNITS (CHOLECALCIFEROL) TABLET PO SCH (08:55)
--- NOTE | 2018-10-21 08:59 | Occupational Ther Daily Note ---
OT Current Status-Daily Note Subjective Pt alert, sitting on BSC. Pt agrees to therapy. No c/o pain. Mental Status/Objective Patient Orientation: Person, Place, Time, Situation Therapy Code Descriptions/Definitions Functional [place] Measure: 0=Not Assessed/NA 4=Minimal Assistance 1=Total Assistance 5=Supervision or Setup 2=Maximal Assistance 6=Modified [place] 3=Moderate Assistance 7=Complete [place] ADL-Treatment Pt declines shower though would like to change socks and shirt. Pt able to reach buttocks to cleanse though ineffective, CGA in standing to hike pants. Pt ambulated to bathroom and transferred to w/c. Sitting at sink, pt able to complete own grooming. Donned/doffed shirt by self with increase time. Threading sock onto sock aide pt able to complete donning sock by self with increased time. After therapy, pt lying in bed with call light/phone in reach. All needs met in room. Therapy Code Descriptions/Definitions Functional [place] Measure: 0=Not Assessed/NA 4=Minimal Assistance 1=Total Assistance 5=Supervision or Setup 2=Maximal Assistance 6=Modified [place] 3=Moderate Assistance 7=Complete [place] Therapy Quality Codes: 6 Independent with activity with or without an assistive device 5 Patient requires set up or clean up by helper. Patient completes activity by themselves 4 Supervision or touching assist (CGA). [place] provide cues , steadying assist 3 The helper provides less than half the effort to complete the activity 2 The helper provides more than half the effort to complete the activity 1 Dependent. The helper does all the effort to complete an activity 7 Patient refused to complete or attempt activity 9 The patient did not perform the activity before the current illness or injury 88 Not attempted due to Medical conditions or safety concerns Grooming (FIM): 6 Oral Hygiene (QC): 6 Upper Body (FIM): 5 Upper Body Dressing (QC): 5 On/Off Footwear (QC): 5 Toileting (FIM): 4 Toileting Hygiene (QC): 3 Toilet/Commode Transfer (FIM): 4 Toilet Transfer (QC): 3 Other Treatment Arm bike completed 8 min with light resistance to increase strength and activity tolerance for daily functional tasks. OT Short Term Goals Short Term Goals Time Frame: Oct 17, 2018 Eating(FIM): 3 Grooming(FIM): 3 Bathing(FIM): 3 Upper Body Dressing(FIM): 4 Lower Body Dressing(FIM): 3 Toileting(FIM): 3 Transfers (B,C,W/C) (FIM): 4 Toilet/Commode Transfer(FIM): 4 Shower Transfer(FIM): 4 Additional Short Term Goals: 1-Demonstrate ADL Tasks, 2-Verbalize Understanding , 3-ImproveStrength/Shiv 1=Demonstrate adherence to instructed precautions during ADL tasks. 2=Patient will verbalize/demonstrate understanding of assistive devices/ modifications for ADL. 3=Patient will improve strength/tolerance for activity to enable patient to perform ADL's. OT Ice Cream Chef Goals Ice Cream Chef Goals Time Frame: Oct 31, 2018 Eating (FIM): 6 Eating (QC): 6 Groomin Oral Hygiene (QC): 5 Bathing(FIM): 5 Shower/Bathe Self (QC): 4 Upper Body Dressing(FIM): 5 Upper Body Dressing (QC): 5 Lower Body Dressing(FIM): 5 Lower Body Dressing (QC): 4 On/Off Footwear (QC): 4 Toileting(FIM): 6 Toileting Hygiene (QC): 6 Transfers (B,C,W/C) (FIM): 6 Toilet/Commode Transfer(FIM): 6 Toilet/Commode Transfer (QC): 6 Shower Transfer(FIM): 5 Additional Goals: 1-Demonstrate ADL Tasks, 2-Verbalize Understanding, 3- ImproveStrength/Shiv 1=Demonstrate adherence to instructed precautions during ADL tasks. 2=Patient will verbalize/demonstrate understanding of assistive devices/ modifications for ADL. 3=Patient will improve strength/tolerance for activity to enable patient to perform ADL's. OT Education/Plan Discharge Recommendations Plan/Recommendations: Continue POC Treatment Plan/Plan of Care Patient would benefit from OT for education, treatment and training to promote independence in ADL's, mobility, safety and/or upper extremity function for ADL' s. Plan of Care: ADL Retraining, Caregiver Training, Cognitive Retraining, Functional Mobility, Group Exercise/Act as Ind, UE Funct Exercise/Act Treatment Duration: Oct 31, 2018 Frequency: At least 5 of 7 days/Wk (IRF) Estimated Hrs Per Day: 1.5 hours per day Agreement: Yes Rehab Potential: Fair Time/GCodes Start Time: 08:00 Stop Time: 09:00 Total Time Billed (hr/min): 60 Billed Treatment Time 1 visit, ADL 3 (50 min) EX 1 (10 min) JORGE TERRY Oct 21, 2018 08:59
--- NOTE | 2018-10-21 09:29 | Progress Note-Urology ---
Progress Note-Urology Progress Notes/Assess & Plan Progress/Assessment & Plan VOIDING WELL. PVR 0. OFF URECHOLINE. SEE PRN Final Diagnosis URINE RETENTION (RESOLVED) OLI SMITH MD Oct 21, 2018 09:29
[2018-10-21] MEDS: METANX PO SCH ×2 (10:12→20:49)
[2018-10-21] MEDS: FLUTICASONE NASAL SPRAY (FLONASE) 16 GM BTL NS SCH (10:12)
--- NOTE | 2018-10-21 10:17 | Physical Therapy Daily Note ---
PT Daily Note-Current Subjective Patient in bed pre tx, agrees to PT, no complaints of pain. Appearance Patient in bed post tx with nurse call, phone, tray, all needs met. Mental Status Patient Orientation: Person, Place, Situation Transfers Therapy Code Descriptions/Definitions Functional [place] Measure: 0=Not Assessed/NA 4=Minimal Assistance 1=Total Assistance 5=Supervision or Setup 2=Maximal Assistance 6=Modified [place] 3=Moderate Assistance 7=Complete [place] Therapy Quality Codes: 6 Independent with activity with or without an assistive device 5 Patient requires set up or clean up by helper. Patient completes activity by themselves 4 Supervision or touching assist (CGA). [place] provide cues , steadying assist 3 The helper provides less than half the effort to complete the activity 2 The helper provides more than half the effort to complete the activity 1 Dependent. The helper does all the effort to complete an activity 7 Patient refused to complete or attempt activity 9 The patient did not perform the activity before the current illness or injury 88 Not attempted due to Medical conditions or safety concerns Transfers (B, C, W/C) (FIM): 3 Scootin Rollin Supine to/from Sit: 3 Sit to/from Stand: 4 Bed to/from Chair: 4 CGA for sit to stand and transfers, cues for hand placement Weight Bearing Right Lower Extremity: Right Full Weight Bearing Left Lower Extremity: Left Full Weight Bearing Gait Training Gait (FIM): 2 Distance: 80'x4 Gait Level of Assist: 4 Gait Persons Needed: 1 Gait Assistive Device: FWW Slow ambulation, some assist guiding walker when turning, tends to keep walker too far out in front Exercises NuStep Minutes: 15 NuStep Workload: 4 Treatments bed mobility and transfers, ambulation, functional strengthening Assessment Current Status: Fair Progress improved ambulation and endurance PT Short Term Goals Short Term Goals Time Frame: Oct 17, 2018 Transfers (B,C,W/C) (FIM): 4 Gait (FIM): 2 (met) Distance (FIM): 8=422-92 ft Gait Distance Comment: 50 ft Gait Level of Assist: 4 Gait Assistive Device: FWW Wheelchair Distance: 0 feet Stairs (FIM): 2 # of Steps: 1 PT Trim Attacher Goals Custodial Goals PT Trim Attacher Goals Time Frame: Oct 31, 2018 Transfers (B,C,W/C) (FIM): 6 Sit to Lying (QC): 6 Lying-Sitting on Side/Bed(QC): 6 Sit to Stand (QC): 6 Rollin Roll Left to Right (QC): 6 Chair/[place]-Lkuup Xfer(QC): 6 Car Transfer (QC): 5 Does the Patient Walk: No and Walking Goal IS indicated Gait (FIM): 6 Gait distance (FIM): 3=150 ft Walk 10 feet (QC): 6 Walk 10ft-Uneven Surface(QC): 5 Walk 50ft with 2 Turns (QC): 6 Walk 150 ft (QC): 6 Gait Level of Assist: 6 Gait Assistive Device: FWW Does the Pt use WC or Scooter?: Yes Wheelchair (FIM): 6 Wheelchair distance (FIM): 3=150 ft Wheel 50 feet with 2 turns (QC: 6 Stairs (FIM): 5 # of Steps: 4 1 Step (curb) (QC): 6 4 Steps (QC): 6 12 Steps (QC): 88 Picking up an Object (QC): 4 PT Plan Problem List Problem List: Activity Tolerance, Functional Strength, Safety, Balance, Gait, Transfer, Bed Mobility, ROM Treatment/Plan Treatment Plan: Continue Plan of Care Treatment Plan: Bed Mobility, Education, Functional Activity Shiv, Functional Strength, Group Therapy, Gait, Safety, Therapeutic Exercise, Transfers Treatment Duration: Oct 31, 2018 Frequency: At least 5 of 7 days/Wk (IRF) Estimated Hrs Per Day: 1.5 hours per day Patient and/or Family Agrees t: Yes Safety Risks/Education Patient Education: Gait Training, Transfer Techniques, Correct Positioning, Safety Issues Teaching Recipient: Patient Teaching Methods: Demonstration, Discussion Response to Teaching: Reinforcement Needed Time/GCodes Time In: 0930 Time Out: 1015 Total Billed Treatment Time: 45 Total Billed Treatment 1 visit EX 15' GT 30' PEBBLES BERRY PT Oct 21, 2018 10:17
--- NOTE | 2018-10-21 11:15 | Speech Therapy Daily Note ---
Speech Daily Progress Note Subjective Date Seen by Provider: Oct 21, 2018 Time Seen by Provider: 00:30 Patient was resting in her bed when I arrived. Objective Patient completed a memory task related to Benny Cotter with 80% accuracy given min to mod verbal cues. Assessment Assessment Current Status: Good Progress Treatment Plan Continue Plan of Care Communication Comprehension: 4 Expression: 4 Social Cognition Social Interaction: 3 Problem Solvin Memory: 3 Speech Short Term Goals Short Term Goals Short Term Goals 1) Patient will use appropriate linguistic forms to communicate in everyday situations, with 90% or greater accuracy. 2) Patient will identify functions of common items, with 90% or greater accuracy. 3) Patient will express her wants/needs effectively with 90% accuracy. Speech Retirement Goals Retirement Goals Patient will be able to effectively communicate within her immediate living environment at 90%. Speech-Plan Patient/Family Goals Patient/Family Goals: Patient plans to return home with her post rehab. Treatment Plan Speech Therapy Treatment Plan: Continue Plan of Care Patient has made excellent progress. She is now on a regular diet without swallowing issues. Treatment Duration: Oct 28, 2018 Frequency: 5 times per week Estimated Hrs Per Day: .5 hour per day Rehab Potential: Fair Barriers to Learning: Patient tires easily with activity. Pt/Family Agrees to Plan: Yes Safety Risks/Education Teaching Recipient: Patient, Significant Other Education Topics Provided: Safety of oral intake. Time Speech Therapy Time In: 10:30 Speech Therapy Time Out: 11:00 Total Billed Time: 30 Billed Treatment Time 1KER[address] Oct 21, 2018 11:15
[2018-10-21] MEDS: ASCORBIC ACID (VIT C) 500 MG TABLET PO SCH (11:52)
[2018-10-21] MEDS: LOSARTAN 50 MG (COZAAR) TAB PO SCH (11:52)
[2018-10-21] MEDS: [UNRECOGNIZED DRUG - OTHER] PO SCH (11:53)
--- NOTE | 2018-10-21 13:22 | Physical Therapy Daily Note ---
PT Daily Note-Current Subjective Patient in bed pre tx, agrees to PT, no complaints of pain. Appearance Patient in wheelchair at bedside post tx, in the room, has OT next. Mental Status Patient Orientation: Person, Place, Situation Transfers Therapy Code Descriptions/Definitions Functional [place] Measure: 0=Not Assessed/NA 4=Minimal Assistance 1=Total Assistance 5=Supervision or Setup 2=Maximal Assistance 6=Modified [place] 3=Moderate Assistance 7=Complete [place] Therapy Quality Codes: 6 Independent with activity with or without an assistive device 5 Patient requires set up or clean up by helper. Patient completes activity by themselves 4 Supervision or touching assist (CGA). [place] provide cues , steadying assist 3 The helper provides less than half the effort to complete the activity 2 The helper provides more than half the effort to complete the activity 1 Dependent. The helper does all the effort to complete an activity 7 Patient refused to complete or attempt activity 9 The patient did not perform the activity before the current illness or injury 88 Not attempted due to Medical conditions or safety concerns Transfers (B, C, W/C) (FIM): 3 Scootin Rollin Supine to/from Sit: 3 Sit to/from Stand: 4 Bed to/from Chair: 4 Weight Bearing Right Lower Extremity: Right Full Weight Bearing Left Lower Extremity: Left Full Weight Bearing Gait Training Gait (FIM): 2 Distance: 120'x2 Gait Level of Assist: 4 Gait Persons Needed: 1 Gait Assistive Device: FWW Slow but steady ambulation, needs occasional assist guiding walker around obstacles Treatments bed mobility, transfers, ambulation Assessment Current Status: Fair Progress improving ambulation PT Short Term Goals Short Term Goals Time Frame: Oct 17, 2018 Transfers (B,C,W/C) (FIM): 4 Gait (FIM): 2 (met) Distance (FIM): 4=869-15 ft Gait Distance Comment: 50 ft Gait Level of Assist: 4 Gait Assistive Device: FWW Wheelchair Distance: 0 feet Stairs (FIM): 2 # of Steps: 1 PT Customer Experience Leader Goals Customer Experience Leader Goals PT Customer Experience Leader Goals Time Frame: Oct 31, 2018 Transfers (B,C,W/C) (FIM): 6 Sit to Lying (QC): 6 Lying-Sitting on Side/Bed(QC): 6 Sit to Stand (QC): 6 Rollin Roll Left to Right (QC): 6 Chair/Udb-hx-Kpwgo Xfer(QC): 6 Car Transfer (QC): 5 Does the Patient Walk: No and Walking Goal IS indicated Gait (FIM): 6 Gait distance (FIM): 3=150 ft Walk 10 feet (QC): 6 Walk 10ft-Uneven Surface(QC): 5 Walk 50ft with 2 Turns (QC): 6 Walk 150 ft (QC): 6 Gait Level of Assist: 6 Gait Assistive Device: FWW Does the Pt use WC or Scooter?: Yes Wheelchair (FIM): 6 Wheelchair distance (FIM): 3=150 ft Wheel 50 feet with 2 turns (QC: 6 Stairs (FIM): 5 # of Steps: 4 1 Step (curb) (QC): 6 4 Steps (QC): 6 12 Steps (QC): 88 Picking up an Object (QC): 4 PT Plan Problem List Problem List: Activity Tolerance, Functional Strength, Safety, Balance, Gait, Transfer, Bed Mobility Treatment/Plan Treatment Plan: Continue Plan of Care Treatment Plan: Bed Mobility, Education, Functional Activity Shiv, Functional Strength, Group Therapy, Gait, Safety, Therapeutic Exercise, Transfers Treatment Duration: Oct 31, 2018 Frequency: At least 5 of 7 days/Wk (IRF) Estimated Hrs Per Day: 1.5 hours per day Patient and/or Family Agrees t: Yes Safety Risks/Education Patient Education: Gait Training, Transfer Techniques, Correct Positioning, Safety Issues Teaching Recipient: Patient Teaching Methods: Demonstration, Discussion Response to Teaching: Reinforcement Needed Time/GCodes Time In: 1310 Time Out: 1325 Total Billed Treatment Time: 15 Total Billed Treatment 1 visit GT 15' PEBBLES BERRY PT Oct 21, 2018 13:22
--- NOTE | 2018-10-21 14:58 | Occupational Ther Daily Note ---
OT Current Status-Daily Note Subjective Pt alert, sitting in w/c. Pt agrees to therapy. No c/o pain. Mental Status/Objective Therapy Code Descriptions/Definitions Functional [place] Measure: 0=Not Assessed/NA 4=Minimal Assistance 1=Total Assistance 5=Supervision or Setup 2=Maximal Assistance 6=Modified [place] 3=Moderate Assistance 7=Complete [place] ADL-Treatment Transferred to [facility] with CGA then was able to cleanse lauri area. Min A to hike pants over hips. Pt ambulated to bed with FWW. Transferred to bed min A. in room after therapy. All needs met. Therapy Code Descriptions/Definitions Functional [place] Measure: 0=Not Assessed/NA 4=Minimal Assistance 1=Total Assistance 5=Supervision or Setup 2=Maximal Assistance 6=Modified [place] 3=Moderate Assistance 7=Complete [place] Therapy Quality Codes: 6 Independent with activity with or without an assistive device 5 Patient requires set up or clean up by helper. Patient completes activity by themselves 4 Supervision or touching assist (CGA). [place] provide cues , steadying assist 3 The helper provides less than half the effort to complete the activity 2 The helper provides more than half the effort to complete the activity 1 Dependent. The helper does all the effort to complete an activity 7 Patient refused to complete or attempt activity 9 The patient did not perform the activity before the current illness or injury 88 Not attempted due to Medical conditions or safety concerns Other Treatment Transported via w/c to therapy gym. Fine motor tasks completed to increase pinch/clinical documentation specialist strength and coordination. OT Short Term Goals Short Term Goals Time Frame: Oct 17, 2018 Eating(FIM): 3 Grooming(FIM): 3 Bathing(FIM): 3 Upper Body Dressing(FIM): 4 Lower Body Dressing(FIM): 3 Toileting(FIM): 3 Transfers (B,C,W/C) (FIM): 4 Toilet/Commode Transfer(FIM): 4 Shower Transfer(FIM): 4 Additional Short Term Goals: 1-Demonstrate ADL Tasks, 2-Verbalize Understanding , 3-ImproveStrength/Shiv 1=Demonstrate adherence to instructed precautions during ADL tasks. 2=Patient will verbalize/demonstrate understanding of assistive devices/ modifications for ADL. 3=Patient will improve strength/tolerance for activity to enable patient to perform ADL's. OT Group Home Goals Gift Packer Goals Time Frame: Oct 31, 2018 Eating (FIM): 6 Eating (QC): 6 Groomin Oral Hygiene (QC): 5 Bathing(FIM): 5 Shower/Bathe Self (QC): 4 Upper Body Dressing(FIM): 5 Upper Body Dressing (QC): 5 Lower Body Dressing(FIM): 5 Lower Body Dressing (QC): 4 On/Off Footwear (QC): 4 Toileting(FIM): 6 Toileting Hygiene (QC): 6 Transfers (B,C,W/C) (FIM): 6 Toilet/Commode Transfer(FIM): 6 Toilet/Commode Transfer (QC): 6 Shower Transfer(FIM): 5 Additional Goals: 1-Demonstrate ADL Tasks, 2-Verbalize Understanding, 3- ImproveStrength/Shiv 1=Demonstrate adherence to instructed precautions during ADL tasks. 2=Patient will verbalize/demonstrate understanding of assistive devices/ modifications for ADL. 3=Patient will improve strength/tolerance for activity to enable patient to perform ADL's. OT Education/Plan Discharge Recommendations Plan/Recommendations: Continue POC Treatment Plan/Plan of Care Patient would benefit from OT for education, treatment and training to promote independence in ADL's, mobility, safety and/or upper extremity function for ADL' s. Plan of Care: ADL Retraining, Caregiver Training, Cognitive Retraining, Functional Mobility, Group Exercise/Act as Ind, UE Funct Exercise/Act Treatment Duration: Oct 31, 2018 Frequency: At least 5 of 7 days/Wk (IRF) Estimated Hrs Per Day: 1.5 hours per day Agreement: Yes Rehab Potential: Fair Time/GCodes Start Time: 13:30 Stop Time: 14:00 Total Time Billed (hr/min): 30 Billed Treatment Time 1 visit-ADL 1 (15 min) EX 1 (15 min) JORGE TERRY Oct 21, 2018 14:58
[2018-10-21 18:00] VITALS: BP_SYST 110; BP_SYST 152; BP_DIAS 67; BP_DIAS 77
[2018-10-21] MEDS: glyBURIDE 5 MG (MICRONASE) TAB PO SCH (18:25)
[2018-10-21] MEDS: MELATONIN 3 MG TABLET PO SCH (20:50)
[2018-10-21] MEDS: ASPIRIN E.C. 81 MG (ECOTRIN) TAB PO SCH (20:50)
[2018-10-21] MEDS: inSUlin DETERMIR 1 UNIT/0.01 ML (LEVEMIR) CHARGE PER UNIT SQ SCH (20:56)
[2018-10-21] MEDS: ALPRAZolam 0.25 MG (XANAX) TAB PO PRN (20:57)
[2018-10-22 05:40] VITALS: BP 185/84
[2018-10-22] MEDS: inSUlin ASPART (NovoLOG) 1 UNIT/0.01 ML (CHARGE PER UNIT) SC SCH ×4 (06:04→20:23)
[2018-10-22] MEDS: metFORMIN 500 MG (GLUCOPHAGE) TAB PO SCH ×2 (06:18→17:02)
[2018-10-22] MEDS: MULTIVIT W/MINERALS TAB (THERAGRAN M) PO SCH (06:18)
[2018-10-22] MEDS: KCL 10 MEQ TAB (MICRO K) PO SCH (06:18)
[2018-10-22] MEDS: LACTOBACILLUS ACIDOPHILUS (PROBIOTIC) CAPSULE PO SCH (06:18)
[2018-10-22] MEDS: glyBURIDE 2.5 MG (MICRONASE) TAB PO SCH (06:18)
[2018-10-22] MEDS: meTOprolol TARTRATE 50 MG (LOPRESSOR) TAB PO SCH ×2 (09:06→20:25)
[2018-10-22] MEDS: VITAMIN D3 1,000 UNITS (CHOLECALCIFEROL) TABLET PO SCH (09:06)
[2018-10-22] MEDS: cloNIDine 0.1 MG (CATAPRES) TAB PO SCH ×3 (09:06→20:25)
[2018-10-22] MEDS: METANX PO SCH ×2 (09:09→20:24)
[2018-10-22] MEDS: FLUTICASONE NASAL SPRAY (FLONASE) 16 GM BTL NS SCH (09:10)
--- NOTE | 2018-10-22 12:29 | Therapy Group Daily Note ---
Therapy Daily Group Note Patient Education Topic Home Safety, Other List Below Exercises LE Seated Exercise, UE Exercise Other/Notes Pt. seen in group therapy this date for socialization, UE exercise, LE exercise , and education for balance and pain management. Pt. tolerated treatment well. Began treatment with reporting name and verbalizing memory of favorite [place] tradition. Worked on seated exercises for increased endurance and overall strength. Lunch trays came and pt. transferred to table area. Ate with other pt's while therapy provided education for maintaining balance and pain. All needs met after session over. Start Time: 11:00 Stop Time: 12:00 Total Billed Treatment Time: 60 Total Billed Treatment 1, Group 60 min BECCA COURTNEY CPTA Oct 22, 2018 12:29
--- NOTE | 2018-10-22 12:42 | Progress Note-Hospitalist ---
Subjective HPI/CC On Admission Date Seen by Provider: Oct 22, 2018 Time Seen by Provider: 12:00 Pt is a 67yoCF known to me from recent admission who was admitted to ARU following inpatient stay at [place] where she was diagnosed with MS. She has no complaints today other than how she looks. Discussed with RN who states that her BP has been much better today. I am consulted for medical management. Subjective/Events-last exam Patient doing well today Advancing diet Retraining her bladder since she had a catheter for so long Reviewed urology notes Bowels are moving Denies any pain at the bedside Review of Systems General: Fatigue Genitourinary: Incontinence Objective Exam Vital Signs Vital Signs Date Time Temp Pulse Resp B/P (MAP) Pulse Ox O2 Delivery O2 Flow Rate FiO2 10/22/18 09:00 Room Air 10/22/18 05:40 97.1 63 16 185/84 (117) 97 Capillary Refill : General Appearance: No Apparent Distress, WD/WN, Chronically ill, Thin Respiratory: Chest Non Tender, Lungs Clear, Normal Breath Sounds, No Accessory Muscle Use, No Respiratory Distress Cardiovascular: Regular Rate, Rhythm, No Edema, No Gallop, No JVD, No Murmur, Normal Peripheral Pulses Neurologic/Psychiatric: Alert, Oriented x3, Depressed Affect, Motor Weakness Skin: Normal Color, Warm/Dry Results/Procedures Lab Patient resulted labs reviewed. Assessment/Plan Assessment and Plan Assess & Plan/Chief Complaint Assessment: Multiple sclerosis Status post urinary retention urology managing Atrial fibrillation history CVA in 2009 Diabetes mellitus Hypertension Diabetic peripheral neuropathy Plan: Continue advancing diet Monitor urinary issues Supportive care Diagnosis/Problems Diagnosis/Problems (1) Generalized weakness Status: Acute (2) Multiple sclerosis Status: Chronic (3) Hypertension Status: Chronic Qualifiers: Hypertension type: essential hypertension Qualified Codes: I10 - Essential (primary) hypertension (4) Insulin dependent diabetes mellitus Status: Chronic (5) Hyperlipidemia Status: Chronic Qualifiers: Hyperlipidemia type: mixed hyperlipidemia Qualified Codes: E78.2 - Mixed hyperlipidemia (6) History of stroke Status: Chronic Clinical Quality Measures DVT/VTE Risk/Contraindication: Risk Factor Score Per Nursin RFS Level Per Nursing on Admit: 4+=Very High FAIZA JOLLEY DO Oct 22, 2018 12:42
[2018-10-22] MEDS: [UNRECOGNIZED DRUG - OTHER] PO SCH (13:29)
[2018-10-22] MEDS: ASCORBIC ACID (VIT C) 500 MG TABLET PO SCH (13:29)
[2018-10-22] MEDS: LOSARTAN 50 MG (COZAAR) TAB PO SCH (13:29)
[2018-10-22 15:57] VITALS: BP 156/87
[2018-10-22] MEDS: glyBURIDE 5 MG (MICRONASE) TAB PO SCH (17:02)
--- NOTE | 2018-10-22 18:48 | NUR ---
Dr Kimball OK'd for pt to have family pass.
[2018-10-22] MEDS: ASPIRIN E.C. 81 MG (ECOTRIN) TAB PO SCH (20:24)
[2018-10-22] MEDS: MELATONIN 3 MG TABLET PO SCH (20:25)
[2018-10-22] MEDS: ALPRAZolam 0.25 MG (XANAX) TAB PO PRN (20:25)
[2018-10-22] MEDS: inSUlin DETERMIR 1 UNIT/0.01 ML (LEVEMIR) CHARGE PER UNIT SQ SCH (20:27)
[2018-10-23 06:00] VITALS: BP 180/77
[2018-10-23] MEDS: LACTOBACILLUS ACIDOPHILUS (PROBIOTIC) CAPSULE PO SCH (06:38)
[2018-10-23] MEDS: inSUlin ASPART (NovoLOG) 1 UNIT/0.01 ML (CHARGE PER UNIT) SC SCH ×4 (06:39→21:19)
[2018-10-23] MEDS: glyBURIDE 2.5 MG (MICRONASE) TAB PO SCH (06:39)
[2018-10-23] MEDS: KCL 10 MEQ TAB (MICRO K) PO SCH (06:39)
[2018-10-23] MEDS: metFORMIN 500 MG (GLUCOPHAGE) TAB PO SCH ×2 (06:39→17:39)
[2018-10-23] MEDS: MULTIVIT W/MINERALS TAB (THERAGRAN M) PO SCH (06:39)
[2018-10-23] MEDS: cloNIDine 0.1 MG (CATAPRES) TAB PO SCH ×3 (09:10→21:24)
[2018-10-23] MEDS: VITAMIN D3 1,000 UNITS (CHOLECALCIFEROL) TABLET PO SCH (09:10)
[2018-10-23] MEDS: meTOprolol TARTRATE 50 MG (LOPRESSOR) TAB PO SCH ×2 (09:11→21:25)
[2018-10-23] MEDS: METANX PO SCH ×2 (09:15→21:26)
[2018-10-23] MEDS: FLUTICASONE NASAL SPRAY (FLONASE) 16 GM BTL NS SCH (09:15)
[2018-10-23] MEDS: [UNRECOGNIZED DRUG - OTHER] PO SCH (13:24)
[2018-10-23] MEDS: LOSARTAN 50 MG (COZAAR) TAB PO SCH (13:24)
[2018-10-23] MEDS: ASCORBIC ACID (VIT C) 500 MG TABLET PO SCH (13:24)
[2018-10-23 15:59] VITALS: BP 166/87
--- NOTE | 2018-10-23 16:26 | NUR ---
DUE TO CHANGES IN STAFFING CARE OF PT TO THIS RN, REPORT RECEIVED FROM Mariano IRAHETA RN. PT LYING IN BED WATCHING TELEVISION, NO NEEDS NOTED AT THIS TIME, CALL LIGHT AND OTHER PERSONAL ITEMS WITHIN REACH WILL CONTINUE TO MONITOR.
[2018-10-23] MEDS: PHENAZOPYRIDINE 100 MG (PYRIDIUM) TABLET PO SCH (17:39)
[2018-10-23] MEDS: glyBURIDE 5 MG (MICRONASE) TAB PO SCH (17:39)
[2018-10-23] MEDS: ALPRAZolam 0.25 MG (XANAX) TAB PO PRN (21:24)
[2018-10-23] MEDS: ASPIRIN E.C. 81 MG (ECOTRIN) TAB PO SCH (21:24)
[2018-10-23] MEDS: MELATONIN 3 MG TABLET PO SCH (21:25)
[2018-10-23] MEDS: inSUlin DETERMIR 1 UNIT/0.01 ML (LEVEMIR) CHARGE PER UNIT SQ SCH (21:25)
[2018-10-24] MEDS: inSUlin ASPART (NovoLOG) 1 UNIT/0.01 ML (CHARGE PER UNIT) SC SCH ×4 (05:16→20:10)
[2018-10-24 05:17] VITALS: BP 187/93
[2018-10-24] MEDS: KCL 10 MEQ TAB (MICRO K) PO SCH (06:32)
[2018-10-24] MEDS: MULTIVIT W/MINERALS TAB (THERAGRAN M) PO SCH (06:32)
[2018-10-24] MEDS: glyBURIDE 2.5 MG (MICRONASE) TAB PO SCH (06:32)
[2018-10-24] MEDS: LACTOBACILLUS ACIDOPHILUS (PROBIOTIC) CAPSULE PO SCH (06:33)
[2018-10-24] MEDS: metFORMIN 500 MG (GLUCOPHAGE) TAB PO SCH ×2 (06:33→16:30)
--- NOTE | 2018-10-24 07:19 | Occupational Ther Daily Note ---
OT Current Status-Daily Note Subjective Pt alert, lying in bed. Pt agrees to therapy. No c/o pain at this time. Mental Status/Objective Patient Orientation: Person, Place, Time, Situation Therapy Code Descriptions/Definitions Functional [place] Measure: 0=Not Assessed/NA 4=Minimal Assistance 1=Total Assistance 5=Supervision or Setup 2=Maximal Assistance 6=Modified [place] 3=Moderate Assistance 7=Complete [place] ADL-Treatment Pt assists with supine to sitting EOB, min A using bedrail. Pt ambulated from bed to recliner using FWW CGA. Pt able to open paper packages and butter container, assist with opening bottle lid. Pt spread better on toast. Using regular utensils to eat with. Pt able to don/doff shirt with extended time by self. Assist to don/doff clothing over feet, CGA in standing while pt hiked pants over hips. Pt transferred to w/c to complete grooming at sink. Pt sitting in w/c at sink after therapy. Nrsg notified that pt was in bathroom to complete own grooming. All needs met in room. Therapy Code Descriptions/Definitions Functional [place] Measure: 0=Not Assessed/NA 4=Minimal Assistance 1=Total Assistance 5=Supervision or Setup 2=Maximal Assistance 6=Modified [place] 3=Moderate Assistance 7=Complete [place] Therapy Quality Codes: 6 Independent with activity with or without an assistive device 5 Patient requires set up or clean up by helper. Patient completes activity by themselves 4 Supervision or touching assist (CGA). [place] provide cues , steadying assist 3 The helper provides less than half the effort to complete the activity 2 The helper provides more than half the effort to complete the activity 1 Dependent. The helper does all the effort to complete an activity 7 Patient refused to complete or attempt activity 9 The patient did not perform the activity before the current illness or injury 88 Not attempted due to Medical conditions or safety concerns Eating (FIM): 5 Eating (QC): 5 Grooming (FIM): 6 Oral Hygiene (QC): 6 Upper Body (FIM): 5 Upper Body Dressing (QC): 5 Lower Body Dressing (FIM): 3 Lower Body Dressing (QC): 3 OT Short Term Goals Short Term Goals Time Frame: Oct 17, 2018 Eating(FIM): 3 Grooming(FIM): 3 Bathing(FIM): 3 Upper Body Dressing(FIM): 4 Lower Body Dressing(FIM): 3 Toileting(FIM): 3 Transfers (B,C,W/C) (FIM): 4 Toilet/Commode Transfer(FIM): 4 Shower Transfer(FIM): 4 Additional Short Term Goals: 1-Demonstrate ADL Tasks, 2-Verbalize Understanding , 3-ImproveStrength/Shiv 1=Demonstrate adherence to instructed precautions during ADL tasks. 2=Patient will verbalize/demonstrate understanding of assistive devices/ modifications for ADL. 3=Patient will improve strength/tolerance for activity to enable patient to perform ADL's. OT Nursing Home Goals Worm Packer Goals Time Frame: Oct 31, 2018 Eating (FIM): 6 Eating (QC): 6 Groomin Oral Hygiene (QC): 5 Bathing(FIM): 5 Shower/Bathe Self (QC): 4 Upper Body Dressing(FIM): 5 Upper Body Dressing (QC): 5 Lower Body Dressing(FIM): 5 Lower Body Dressing (QC): 4 On/Off Footwear (QC): 4 Toileting(FIM): 6 Toileting Hygiene (QC): 6 Transfers (B,C,W/C) (FIM): 6 Toilet/Commode Transfer(FIM): 6 Toilet/Commode Transfer (QC): 6 Shower Transfer(FIM): 5 Additional Goals: 1-Demonstrate ADL Tasks, 2-Verbalize Understanding, 3- ImproveStrength/Shiv 1=Demonstrate adherence to instructed precautions during ADL tasks. 2=Patient will verbalize/demonstrate understanding of assistive devices/ modifications for ADL. 3=Patient will improve strength/tolerance for activity to enable patient to perform ADL's. OT Education/Plan Discharge Recommendations Plan/Recommendations: Continue POC Treatment Plan/Plan of Care Patient would benefit from OT for education, treatment and training to promote independence in ADL's, mobility, safety and/or upper extremity function for ADL' s. Plan of Care: ADL Retraining, Caregiver Training, Cognitive Retraining, Functional Mobility, Group Exercise/Act as Ind, UE Funct Exercise/Act Treatment Duration: Oct 31, 2018 Frequency: At least 5 of 7 days/Wk (IRF) Estimated Hrs Per Day: 1.5 hours per day Agreement: Yes Rehab Potential: Fair Time/GCodes Start Time: 06:45 Stop Time: 07:30 Total Time Billed (hr/min): 45 Billed Treatment Time 1 visit-ADL 3 (45 min) JORGE TERRY Oct 24, 2018 07:19
[2018-10-24] MEDS: PHENAZOPYRIDINE 100 MG (PYRIDIUM) TABLET PO SCH ×3 (08:07→17:11)
[2018-10-24] MEDS: meTOprolol TARTRATE 50 MG (LOPRESSOR) TAB PO SCH ×2 (08:07→20:10)
[2018-10-24] MEDS: METANX PO SCH ×2 (08:07→20:09)
[2018-10-24] MEDS: FLUTICASONE NASAL SPRAY (FLONASE) 16 GM BTL NS SCH (08:07)
[2018-10-24] MEDS: VITAMIN D3 1,000 UNITS (CHOLECALCIFEROL) TABLET PO SCH (08:07)
[2018-10-24] MEDS: cloNIDine 0.1 MG (CATAPRES) TAB PO SCH ×3 (08:07→20:10)
--- NOTE | 2018-10-24 09:00 | Physical Therapy Daily Note ---
PT Daily Note-Current Subjective Patient in recliner pre tx, agrees to PT, no complaints of pain. Appearance Patient in recliner post tx with nurse call, phone, tray, all needs met. Mental Status Patient Orientation: Person, Place, Situation Transfers Therapy Code Descriptions/Definitions Functional [place] Measure: 0=Not Assessed/NA 4=Minimal Assistance 1=Total Assistance 5=Supervision or Setup 2=Maximal Assistance 6=Modified [place] 3=Moderate Assistance 7=Complete [place] Therapy Quality Codes: 6 Independent with activity with or without an assistive device 5 Patient requires set up or clean up by helper. Patient completes activity by themselves 4 Supervision or touching assist (CGA). [place] provide cues , steadying assist 3 The helper provides less than half the effort to complete the activity 2 The helper provides more than half the effort to complete the activity 1 Dependent. The helper does all the effort to complete an activity 7 Patient refused to complete or attempt activity 9 The patient did not perform the activity before the current illness or injury 88 Not attempted due to Medical conditions or safety concerns Transfers (B, C, W/C) (FIM): 3 Scootin Rollin Supine to/from Sit: 3 Sit to/from Stand: 4 Bed to/from Chair: 4 Cues for hand placement with almost every transfer. Patient practiced bed mobility, rolling, supine <-> sit several times, still requires mod assist due to weakness. Weight Bearing Right Lower Extremity: Right Full Weight Bearing Left Lower Extremity: Left Full Weight Bearing Gait Training Gait (FIM): 4 Distance: 150', 80', 20' Gait Level of Assist: 4 Gait Persons Needed: 1 Gait Assistive Device: FWW Min assist to help guide the walker, slumped posture, tends to keep walker too far in front. Slower, worse shuffling. Exercises Seated Therapy Exercises: Ankle pumps, Hip flexion Seated Reps: 20 LAQ alternating for 5 min NuStep Minutes: 15 NuStep Workload: 4 Treatments bed mobility, transfers, ambulation, functional strengthening Assessment Current Status: Poor Progress more fatigue today, slower ambulation, more shuffling PT Short Term Goals Short Term Goals Time Frame: Oct 17, 2018 Transfers (B,C,W/C) (FIM): 4 Gait (FIM): 2 (met) Distance (FIM): 7=317-01 ft Gait Distance Comment: 50 ft Gait Level of Assist: 4 Gait Assistive Device: FWW Wheelchair Distance: 0 feet Stairs (FIM): 2 # of Steps: 1 PT Custodial Goals Custodial Goals PT Clerk Analyst Goals Time Frame: Oct 31, 2018 Transfers (B,C,W/C) (FIM): 6 Sit to Lying (QC): 6 Lying-Sitting on Side/Bed(QC): 6 Sit to Stand (QC): 6 Rollin Roll Left to Right (QC): 6 Chair/Nqo-zp-Wvevr Xfer(QC): 6 Car Transfer (QC): 5 Does the Patient Walk: No and Walking Goal IS indicated Gait (FIM): 6 Gait distance (FIM): 3=150 ft Walk 10 feet (QC): 6 Walk 10ft-Uneven Surface(QC): 5 Walk 50ft with 2 Turns (QC): 6 Walk 150 ft (QC): 6 Gait Level of Assist: 6 Gait Assistive Device: FWW Does the Pt use WC or Scooter?: Yes Wheelchair (FIM): 6 Wheelchair distance (FIM): 3=150 ft Wheel 50 feet with 2 turns (QC: 6 Stairs (FIM): 5 # of Steps: 4 1 Step (curb) (QC): 6 4 Steps (QC): 6 12 Steps (QC): 88 Picking up an Object (QC): 4 PT Plan Problem List Problem List: Activity Tolerance, Functional Strength, Safety, Balance, Gait, Transfer, Bed Mobility, ROM Treatment/Plan Treatment Plan: Continue Plan of Care Treatment Plan: Bed Mobility, Education, Functional Activity Shiv, Functional Strength, Group Therapy, Gait, Safety, Therapeutic Exercise, Transfers Treatment Duration: Oct 31, 2018 Frequency: At least 5 of 7 days/Wk (IRF) Estimated Hrs Per Day: 1.5 hours per day Patient and/or Family Agrees t: Yes Safety Risks/Education Patient Education: Gait Training, Transfer Techniques, Correct Positioning, Safety Issues Teaching Recipient: Patient Teaching Methods: Demonstration, Discussion Response to Teaching: Reinforcement Needed Time/GCodes Time In: 0800 Time Out: 0900 Total Billed Treatment Time: 60 Total Billed Treatment 1 visit GT 25' EX 20' FA 15' PEBBLES BERRY PT Oct 24, 2018 09:00
--- NOTE | 2018-10-24 10:26 | Speech Therapy Daily Note ---
Speech Daily Progress Note Subjective Date Seen by Provider: Oct 24, 2018 Time Seen by Provider: 00:30 Patient is anxious to go home for [place]. Objective Patient completed a series of activities related to scenarios for safety at home with 80% accuracy given minimal cues. Treatment Plan Continue Plan of Care Communication Comprehension: 4 Expression: 4 Social Cognition Social Interaction: 3 Problem Solvin Memory: 3 Speech Short Term Goals Short Term Goals Short Term Goals 1) Patient will use appropriate linguistic forms to communicate in everyday situations, with 90% or greater accuracy. 2) Patient will identify functions of common items, with 90% or greater accuracy. 3) Patient will express her wants/needs effectively with 90% accuracy. Speech Home Health Billing Specialist Goals Home Health Billing Specialist Goals Patient will be able to effectively communicate within her immediate living environment at 90%. Speech-Plan Patient/Family Goals Patient/Family Goals: Patient will return homw with her post rehab. Treatment Plan Speech Therapy Treatment Plan: Continue Plan of Care Patient has made good progress with skilled ST services with memory, problem solving and safe oral intake. Treatment Duration: Oct 28, 2018 Frequency: 5 times per week Estimated Hrs Per Day: .5 hour per day Rehab Potential: Fair Barriers to Learning: Patient continues to tire easily. Pt/Family Agrees to Plan: Yes Safety Risks/Education Teaching Recipient: Patient Response to Teaching: Verbalize Understanding Education Topics Provided: Safety when she returns home. Time Speech Therapy Time In: 09:00 Speech Therapy Time Out: 09:30 Total Billed Time: 30 Billed Treatment Time 1KEREN [address] Oct 24, 2018 10:26
--- NOTE | 2018-10-24 11:17 | Progress Note-Hospitalist ---
Subjective HPI/CC On Admission Date Seen by Provider: Oct 24, 2018 Time Seen by Provider: 09:30 Pt is a 67yoCF known to me from recent admission who was admitted to ARU following inpatient stay at [place] where she was diagnosed with MS. She has no complaints today other than how she looks. Discussed with RN who states that her BP has been much better today. I am consulted for medical management. Subjective/Events-last exam Patient doing well Slow recovery Dysuria so obtained sterile and/out catheter for urine culture and that is pending Pyridium is helping her with the dysuria No fever no blood in urine Bowel movements are normal Eating and drinking a lot better Review of Systems Genitourinary: Dysuria Objective Exam Vital Signs Vital Signs Date Time Temp Pulse Resp B/P (MAP) Pulse Ox O2 Delivery O2 Flow Rate FiO2 10/24/18 09:00 Room Air 10/24/18 05:17 97.4 65 16 187/93 (124) 98 Capillary Refill : General Appearance: No Apparent Distress, WD/WN, Chronically ill Respiratory: Chest Non Tender, Lungs Clear, Normal Breath Sounds, No Accessory Muscle Use, No Respiratory Distress Cardiovascular: Regular Rate, Rhythm, No Edema, No Gallop, No JVD, No Murmur, Normal Peripheral Pulses Neurologic/Psychiatric: Alert, Oriented x3, No Motor/Sensory Deficits, Depressed Affect Results/Procedures Lab Laboratory Tests 10/24/18 11:30 Patient resulted labs reviewed. Assessment/Plan Assessment and Plan Assess & Plan/Chief Complaint Assessment: Multiple sclerosis Acute dysuria urine culture pending from sterile and out catheter and placed on Pyridium empirically Status post urinary retention urology managing Atrial fibrillation history CVA in 2009 Diabetes mellitus Hypertension Diabetic peripheral neuropathy Plan: Continue advancing diet Monitor urinary issues Supportive care Diagnosis/Problems Diagnosis/Problems (1) Generalized weakness Status: Acute (2) Multiple sclerosis Status: Chronic (3) Hypertension Status: Chronic Qualifiers: Hypertension type: essential hypertension Qualified Codes: I10 - Essential (primary) hypertension (4) Insulin dependent diabetes mellitus Status: Chronic (5) Hyperlipidemia Status: Chronic Qualifiers: Hyperlipidemia type: mixed hyperlipidemia Qualified Codes: E78.2 - Mixed hyperlipidemia (6) History of stroke Status: Chronic (7) Dysuria Status: Acute Clinical Quality Measures DVT/VTE Risk/Contraindication: Risk Factor Score Per Nursin RFS Level Per Nursing on Admit: 4+=Very High FAIZA JOLLEY DO Oct 24, 2018 11:17
--- NOTE | 2018-10-24 11:20 | NUR ---
Pastoral Care Visit, pt was in commons area with other pts preparing to eat. I had collective prayer with group.
[2018-10-24 11:33] LABS: HEMOGLOBIN 11.8 G/DL (11.5-16.0); MEAN PLATELET VOLUME 10.5 FL (7.4-10.4); RED BLOOD COUNT 4.26 10^6/uL (4.35-5.85); RED CELL DISTRIBUTION WIDTH 14.7 % (10.0-14.5); WHITE BLOOD COUNT 3.9 10^3/uL (4.3-11.0)
[2018-10-24 11:56] LABS: ALANINE AMINOTRANSFERASE 31 U/L (0-55); ALBUMIN 3.8 GM/DL (3.2-4.5); ALKALINE PHOSPHATASE 81 U/L (40-136); BILIRUBIN,TOTAL 0.3 MG/DL (0.1-1.0); BUN/CREATININE RATIO 18; CALCIUM 9.3 MG/DL (8.5-10.1); CARBON DIOXIDE 21 MMOL/L (21-32); CHLORIDE 104 MMOL/L (98-107); CREATININE SERUM 0.82 MG/DL (0.60-1.30); GFR ESTIMATED > 60; GLUCOSE 176 MG/DL (70-105); SODIUM 140 MMOL/L (135-145); TOTAL PROTEIN 6.4 GM/DL (6.4-8.2)
[2018-10-24] MEDS: LOSARTAN 50 MG (COZAAR) TAB PO SCH (12:18)
[2018-10-24] MEDS: ASCORBIC ACID (VIT C) 500 MG TABLET PO SCH (12:18)
[2018-10-24] MEDS: [UNRECOGNIZED DRUG - OTHER] PO SCH (12:19)
--- NOTE | 2018-10-24 13:06 | Therapy Group Daily Note ---
Therapy Daily Group Note Other/Notes Patients had group therapy in the common area of rehab today. Each patient ambulated or was transported to the common area of rehab and sat at tables that were together so everyone could see and hear each other. Patients had to introduce themselves, state where they were from, and answer a question involving memory and association. Patients then participated in jack trivia and then participated in patient led exercises. Each patient then ambulated or was transported to their room and put into bed or chair with nurse call, phone, tray, and alarm on if needed. Start Time: 11:30 Stop Time: 12:45 Total Billed Treatment Time: 75 Total Billed Treatment 1 visit GRP 75' PEBBLES BERRY PT Oct 24, 2018 13:05
--- NOTE | 2018-10-24 13:39 | NUR ---
Assumed care of patient. Report rec'd from CAITLYN Sr.
[2018-10-24 15:39] VITALS: BP 151/84
[2018-10-24] MEDS: glyBURIDE 5 MG (MICRONASE) TAB PO SCH (17:11)
--- NOTE | 2018-10-24 18:19 | NUR ---
Dr. Brown on floor. Approved day pass for tomorrow, 10/25/18.
[2018-10-24] MEDS: ALPRAZolam 0.25 MG (XANAX) TAB PO PRN (20:10)
[2018-10-24] MEDS: ASPIRIN E.C. 81 MG (ECOTRIN) TAB PO SCH (20:10)
[2018-10-24] MEDS: MELATONIN 3 MG TABLET PO SCH (20:10)
[2018-10-24] MEDS: inSUlin DETERMIR 1 UNIT/0.01 ML (LEVEMIR) CHARGE PER UNIT SQ SCH (20:10)
[2018-10-25] MEDS: inSUlin ASPART (NovoLOG) 1 UNIT/0.01 ML (CHARGE PER UNIT) SC SCH ×4 (06:19→20:34)
[2018-10-25] MEDS: MULTIVIT W/MINERALS TAB (THERAGRAN M) PO SCH (06:19)
[2018-10-25] MEDS: glyBURIDE 2.5 MG (MICRONASE) TAB PO SCH (06:19)
[2018-10-25] MEDS: LACTOBACILLUS ACIDOPHILUS (PROBIOTIC) CAPSULE PO SCH (06:19)
[2018-10-25] MEDS: KCL 10 MEQ TAB (MICRO K) PO SCH (06:19)
[2018-10-25] MEDS: metFORMIN 500 MG (GLUCOPHAGE) TAB PO SCH ×2 (06:20→18:07)
[2018-10-25 06:38] VITALS: BP 177/88
[2018-10-25] MEDS: cloNIDine 0.1 MG (CATAPRES) TAB PO SCH ×3 (08:30→20:34)
[2018-10-25] MEDS: meTOprolol TARTRATE 50 MG (LOPRESSOR) TAB PO SCH ×2 (08:30→20:34)
[2018-10-25] MEDS: PHENAZOPYRIDINE 100 MG (PYRIDIUM) TABLET PO SCH ×3 (08:30→18:07)
[2018-10-25] MEDS: VITAMIN D3 1,000 UNITS (CHOLECALCIFEROL) TABLET PO SCH (08:30)
[2018-10-25] MEDS: FLUTICASONE NASAL SPRAY (FLONASE) 16 GM BTL NS SCH (08:30)
[2018-10-25] MEDS: METANX PO SCH ×2 (08:30→20:33)
--- NOTE | 2018-10-25 09:38 | NUR ---
Out on pass with for xmas. Pt denied pain or distress. Assisted x 1 to private car using gait belt/W/C. 12 pm and 1pm meds given to pt s . Says they have a glucometer and insulin at home for lunch time. Depends/wipes/wheel chair and walker sent with pt.
[2018-10-25] MEDS: [UNRECOGNIZED DRUG - OTHER] PO SCH (11:33)
[2018-10-25] MEDS: ASCORBIC ACID (VIT C) 500 MG TABLET PO SCH (11:33)
[2018-10-25] MEDS: LOSARTAN 50 MG (COZAAR) TAB PO SCH (11:33)
--- NOTE | 2018-10-25 13:00 | NUR ---
Assumed care of patient. Report rec'd from CAITLYN Sr. Patient is out on day .
--- NOTE | 2018-10-25 14:28 | NUR ---
Dr. Kimball called with urine culture results. Per Dr. Kimball, no need to treat. Continue Pyridium.
[2018-10-25] MEDS: glyBURIDE 5 MG (MICRONASE) TAB PO SCH (18:07)
--- NOTE | 2018-10-25 18:11 | NUR ---
Back to floor. Had a good day, but tired. FSBS is 122.
[2018-10-25 18:36] VITALS: BP 170/92
[2018-10-25] MEDS: inSUlin DETERMIR 1 UNIT/0.01 ML (LEVEMIR) CHARGE PER UNIT SQ SCH (20:34)
[2018-10-25] MEDS: ASPIRIN E.C. 81 MG (ECOTRIN) TAB PO SCH (20:34)
[2018-10-25] MEDS: MELATONIN 3 MG TABLET PO SCH (20:34)
[2018-10-25] MEDS: ALPRAZolam 0.25 MG (XANAX) TAB PO PRN (20:34)
[2018-10-26 06:00] VITALS: BP 176/89
[2018-10-26] MEDS: LACTOBACILLUS ACIDOPHILUS (PROBIOTIC) CAPSULE PO SCH (06:01)
[2018-10-26] MEDS: KCL 10 MEQ TAB (MICRO K) PO SCH (06:01)
[2018-10-26] MEDS: metFORMIN 500 MG (GLUCOPHAGE) TAB PO SCH ×2 (06:01→18:00)
[2018-10-26] MEDS: glyBURIDE 2.5 MG (MICRONASE) TAB PO SCH (06:01)
[2018-10-26] MEDS: MULTIVIT W/MINERALS TAB (THERAGRAN M) PO SCH (06:01)
[2018-10-26] MEDS: inSUlin ASPART (NovoLOG) 1 UNIT/0.01 ML (CHARGE PER UNIT) SC SCH ×4 (06:02→20:41)
--- NOTE | 2018-10-26 07:17 | Occupational Ther Daily Note ---
OT Current Status-Daily Note Subjective Pt alert, lying in bed. Pt agrees to therapy. No c/o pain. Due to going home yesterday, pt is very fatigued. Mental Status/Objective Patient Orientation: Person, Place, Time, Situation Therapy Code Descriptions/Definitions Functional [place] Measure: 0=Not Assessed/NA 4=Minimal Assistance 1=Total Assistance 5=Supervision or Setup 2=Maximal Assistance 6=Modified [place] 3=Moderate Assistance 7=Complete [place] ADL-Treatment Assist needed to scoot up in bed. BLOUNT loosened lids on bottle and milk carton then pt opened. Pt able to open butter container and sugar package then spread butter on bread and poured sugar and milk into cereal. Used regular utensils to feed self. Min A for supine to EOB. Transferred to [facility] CGA using FWW, assist to manipulate clothing. Used w/c to transport to shower. CGA using grabbars and shower bench. CGA in standing to complete buttocks and lauri area bathing. Completed all other areas by self. Assist to dry lower legs and buttocks. Doffed shirt by self, assist to don. Assist to don/doff lower body clothing, attempting to use AE. Mod I for grooming. Pt takes increased time to complete all tasks due to decreased activity tolerance and slow movements. After therapy, pt sitting in recliner with call light/phone in reach. All needs met. MACHINE STAKER in room. Therapy Code Descriptions/Definitions Functional [place] Measure: 0=Not Assessed/NA 4=Minimal Assistance 1=Total Assistance 5=Supervision or Setup 2=Maximal Assistance 6=Modified [place] 3=Moderate Assistance 7=Complete [place] Therapy Quality Codes: 6 Independent with activity with or without an assistive device 5 Patient requires set up or clean up by helper. Patient completes activity by themselves 4 Supervision or touching assist (CGA). [place] provide cues , steadying assist 3 The helper provides less than half the effort to complete the activity 2 The helper provides more than half the effort to complete the activity 1 Dependent. The helper does all the effort to complete an activity 7 Patient refused to complete or attempt activity 9 The patient did not perform the activity before the current illness or injury 88 Not attempted due to Medical conditions or safety concerns Eating (FIM): 5 Eating (QC): 5 Grooming (FIM): 6 Oral Hygiene (QC): 6 Bathing (FIM): 4 Bathing Location: L Arm, R Arm, L Upper Leg, R Upper Leg, L Lower Leg ( including foot), R Lower Leg (including foot), Chest, Abdomen, Buttocks, Perineal Area Shower/Bathe Self (QC): 3 Upper Body (FIM): 4 Upper Body Dressing (QC): 3 Lower Body Dressing (FIM): 3 Lower Body Dressing (QC): 3 Toileting (FIM): 4 Toileting Hygiene (QC): 3 Toilet/Commode Transfer (FIM): 4 Toilet Transfer (QC): 3 Shower Transfer(FIM): 4 OT Short Term Goals Short Term Goals Time Frame: Oct 17, 2018 Eating(FIM): 3 Grooming(FIM): 3 Bathing(FIM): 3 Upper Body Dressing(FIM): 4 Lower Body Dressing(FIM): 3 Toileting(FIM): 3 Transfers (B,C,W/C) (FIM): 4 Toilet/Commode Transfer(FIM): 4 Shower Transfer(FIM): 4 Additional Short Term Goals: 1-Demonstrate ADL Tasks, 2-Verbalize Understanding , 3-ImproveStrength/Shiv 1=Demonstrate adherence to instructed precautions during ADL tasks. 2=Patient will verbalize/demonstrate understanding of assistive devices/ modifications for ADL. 3=Patient will improve strength/tolerance for activity to enable patient to perform ADL's. OT Halfway Goals Halfway Goals Time Frame: Oct 31, 2018 Eating (FIM): 6 Eating (QC): 6 Groomin Oral Hygiene (QC): 5 Bathing(FIM): 5 Shower/Bathe Self (QC): 4 Upper Body Dressing(FIM): 5 Upper Body Dressing (QC): 5 Lower Body Dressing(FIM): 5 Lower Body Dressing (QC): 4 On/Off Footwear (QC): 4 Toileting(FIM): 6 Toileting Hygiene (QC): 6 Transfers (B,C,W/C) (FIM): 6 Toilet/Commode Transfer(FIM): 6 Toilet/Commode Transfer (QC): 6 Shower Transfer(FIM): 5 Additional Goals: 1-Demonstrate ADL Tasks, 2-Verbalize Understanding, 3- ImproveStrength/Shiv 1=Demonstrate adherence to instructed precautions during ADL tasks. 2=Patient will verbalize/demonstrate understanding of assistive devices/ modifications for ADL. 3=Patient will improve strength/tolerance for activity to enable patient to perform ADL's. OT Education/Plan Discharge Recommendations Plan/Recommendations: Continue POC Treatment Plan/Plan of Care Patient would benefit from OT for education, treatment and training to promote independence in ADL's, mobility, safety and/or upper extremity function for ADL' s. Plan of Care: ADL Retraining, Caregiver Training, Cognitive Retraining, Functional Mobility, Group Exercise/Act as Ind, UE Funct Exercise/Act Treatment Duration: Oct 31, 2018 Frequency: At least 5 of 7 days/Wk (IRF) Estimated Hrs Per Day: 1.5 hours per day Agreement: Yes Rehab Potential: Fair Time/GCodes Start Time: 06:50 Stop Time: 08:30 Total Time Billed (hr/min): 100 Billed Treatment Time 1 visit-ADL 7 (100 min) JORGE TERRY Oct 26, 2018 07:17
[2018-10-26] MEDS: FLUTICASONE NASAL SPRAY (FLONASE) 16 GM BTL NS SCH (07:39)
[2018-10-26] MEDS: METANX PO SCH ×2 (07:39→20:11)
[2018-10-26] MEDS: PHENAZOPYRIDINE 100 MG (PYRIDIUM) TABLET PO SCH ×3 (07:39→18:01)
[2018-10-26] MEDS: meTOprolol TARTRATE 50 MG (LOPRESSOR) TAB PO SCH ×2 (07:40→20:13)
[2018-10-26] MEDS: VITAMIN D3 1,000 UNITS (CHOLECALCIFEROL) TABLET PO SCH (07:40)
[2018-10-26] MEDS: cloNIDine 0.1 MG (CATAPRES) TAB PO SCH ×3 (07:40→20:12)
--- NOTE | 2018-10-26 07:44 | NUR ---
prior to a.m medications pulse was 80 b/p was 165/87
--- NOTE | 2018-10-26 09:13 | Speech Therapy Daily Note ---
Speech Daily Progress Note Subjective Date Seen by Provider: Oct 26, 2018 Time Seen by Provider: 00:30 Patient was pleasant, but she was tired from her outing for [place] with her family. Objective Patient completed memory tasks related to her personal events with 100% accuracy. Assessment Assessment Current Status: Excellent Progress Treatment Plan Continue Plan of Care Communication Comprehension: 4 Expression: 4 Social Cognition Social Interaction: 3 Problem Solvin Memory: 3 Speech Short Term Goals Short Term Goals Short Term Goals 1) Patient will use appropriate linguistic forms to communicate in everyday situations, with 90% or greater accuracy. 2) Patient will identify functions of common items, with 90% or greater accuracy. 3) Patient will express her wants/needs effectively with 90% accuracy. Speech [facility] Goals Relief Pilot Goals Patient will be able to effectively communicate within her immediate living environment at 90%. Speech-Plan Patient/Family Goals Patient/Family Goals: Patient plans to return home with her post rehab. Treatment Plan Speech Therapy Treatment Plan: Continue Plan of Care Patient is doing very well. Treatment Duration: Oct 28, 2018 Frequency: 5 times per week Estimated Hrs Per Day: .5 hour per day Rehab Potential: Good Barriers to Learning: Patient tires easily. Pt/Family Agrees to Plan: Yes Safety Risks/Education Teaching Recipient: Patient Teaching Methods: Discussion Response to Teaching: Verbalize Understanding Education Topics Provided: Safety and utilization of the call light when needed. Time Speech Therapy Time In: 08:30 Speech Therapy Time Out: 09:00 Total Billed Time: 30 Billed Treatment Time 1ANGIESIERRA Guerita MEJIAAYADHAILE ST Oct 26, 2018 09:13
--- NOTE | 2018-10-26 10:27 | Progress Note-Hospitalist ---
Subjective HPI/CC On Admission Date Seen by Provider: Oct 26, 2018 Time Seen by Provider: 10:00 Pt is a 67yoCF known to me from recent admission who was admitted to ARU following inpatient stay at [place] where she was diagnosed with MS. She has no complaints today other than how she looks. Discussed with RN who states that her BP has been much better today. I am consulted for medical management. Subjective/Events-last exam Patient doing well although slower than she did like Urine culture showed less than 10,000 enterococcus no need for treatment Pain is not reported Breathing well Eating and drinking better Review of Systems General: Fatigue Objective Exam Vital Signs Vital Signs Date Time Temp Pulse Resp B/P (MAP) Pulse Ox O2 Delivery O2 Flow Rate FiO2 10/26/18 09:00 96 Room Air 10/26/18 06:00 98.0 73 18 176/89 (118) Capillary Refill : General Appearance: No Apparent Distress, WD/WN, Chronically ill, Thin Respiratory: Chest Non Tender, Lungs Clear, Normal Breath Sounds, No Accessory Muscle Use, No Respiratory Distress Cardiovascular: Regular Rate, Rhythm, No Edema, No Gallop, No JVD, No Murmur, Normal Peripheral Pulses Neurologic/Psychiatric: Alert, Oriented x3, No Motor/Sensory Deficits, Normal Mood/Affect Results/Procedures Lab Patient resulted labs reviewed. Assessment/Plan Assessment and Plan Assess & Plan/Chief Complaint Assessment: Multiple sclerosis Acute dysuria urine culture negative from sterile and out catheter and placed on Pyridium empirically Status post urinary retention urology managing Atrial fibrillation history CVA in 2009 Diabetes mellitus Hypertension Diabetic peripheral neuropathy Plan: Continue advancing diet Monitor urinary issues Supportive care Diagnosis/Problems Diagnosis/Problems (1) Generalized weakness Status: Acute (2) Multiple sclerosis Status: Chronic (3) Hypertension Status: Chronic Qualifiers: Hypertension type: essential hypertension Qualified Codes: I10 - Essential (primary) hypertension (4) Insulin dependent diabetes mellitus Status: Chronic (5) Hyperlipidemia Status: Chronic Qualifiers: Hyperlipidemia type: mixed hyperlipidemia Qualified Codes: E78.2 - Mixed hyperlipidemia (6) History of stroke Status: Chronic (7) Dysuria Status: Acute Clinical Quality Measures DVT/VTE Risk/Contraindication: Risk Factor Score Per Nursin RFS Level Per Nursing on Admit: 4+=Very High FAIZA JOLLEY DO Oct 26, 2018 10:27
--- NOTE | 2018-10-26 11:33 | NUR ---
PATIENT BLADDER SCANNED AT THIS TIME WITH 11 MLS FOUND TO BE IN HER BLADDER AFTER VOIDING. THIS RN WILL CONT TO MONITOR THIS PATIENT THROUGHOUT THE REMAINDER OF THIS SHIFT.
--- NOTE | 2018-10-26 11:54 | Physical Therapy Daily Note ---
PT Daily Note-Current Subjective Patient in recliner pre tx, agrees to PT, no complaints of pain. Patient states she is still tired from her leave yesterday. Appearance Patient in recliner post tx with nurse call, phone, tray, all needs met. in the room. Mental Status Patient Orientation: Person, Place, Situation Transfers Therapy Code Descriptions/Definitions Functional [place] Measure: 0=Not Assessed/NA 4=Minimal Assistance 1=Total Assistance 5=Supervision or Setup 2=Maximal Assistance 6=Modified [place] 3=Moderate Assistance 7=Complete [place] Therapy Quality Codes: 6 Independent with activity with or without an assistive device 5 Patient requires set up or clean up by helper. Patient completes activity by themselves 4 Supervision or touching assist (CGA). [employer] provide cues , steadying assist 3 The helper provides less than half the effort to complete the activity 2 The helper provides more than half the effort to complete the activity 1 Dependent. The helper does all the effort to complete an activity 7 Patient refused to complete or attempt activity 9 The patient did not perform the activity before the current illness or injury 88 Not attempted due to Medical conditions or safety concerns Transfers (B, C, W/C) (FIM): 4 Sit to/from Stand: 4 Bed to/from Chair: 4 min assist to help guide walker during transfers Weight Bearing Right Lower Extremity: Right Full Weight Bearing Left Lower Extremity: Left Full Weight Bearing Gait Training Gait (FIM): 2 Distance: 130', 80' Gait Level of Assist: 4 Gait Persons Needed: 1 Gait Assistive Device: FWW Min assist to help guide walker. Patient needed more assist with ambulation today, more fatigued. Exercises LAQ alternating for 5 min, sit to stands 2 sets of 10 NuStep Minutes: 15 NuStep Workload: 4 Treatments transfers, ambulation, functional strengthening Assessment Current Status: Poor Progress Patient more fatigued today, needed more assist with guiding the walker during ambulation and with positioning. PT Short Term Goals Short Term Goals Time Frame: Oct 17, 2018 Transfers (B,C,W/C) (FIM): 4 Gait (FIM): 2 (met) Distance (FIM): 6=505-63 ft Gait Distance Comment: 50 ft Gait Level of Assist: 4 Gait Assistive Device: FWW Wheelchair Distance: 0 feet Stairs (FIM): 2 # of Steps: 1 PT Care Home Goals Care Home Goals PT Care Home Goals Time Frame: Oct 31, 2018 Transfers (B,C,W/C) (FIM): 6 Sit to Lying (QC): 6 Lying-Sitting on Side/Bed(QC): 6 Sit to Stand (QC): 6 Rollin Roll Left to Right (QC): 6 Chair/[id number] Xfer(QC): 6 Car Transfer (QC): 5 Does the Patient Walk: No and Walking Goal IS indicated Gait (FIM): 6 Gait distance (FIM): 3=150 ft Walk 10 feet (QC): 6 Walk 10ft-Uneven Surface(QC): 5 Walk 50ft with 2 Turns (QC): 6 Walk 150 ft (QC): 6 Gait Level of Assist: 6 Gait Assistive Device: FWW Does the Pt use WC or Scooter?: Yes Wheelchair (FIM): 6 Wheelchair distance (FIM): 3=150 ft Wheel 50 feet with 2 turns (QC: 6 Stairs (FIM): 5 # of Steps: 4 1 Step (curb) (QC): 6 4 Steps (QC): 6 12 Steps (QC): 88 Picking up an Object (QC): 4 PT Plan Problem List Problem List: Activity Tolerance, Functional Strength, Safety, Balance, Gait, Transfer, Bed Mobility, ROM Treatment/Plan Treatment Plan: Continue Plan of Care Treatment Plan: Bed Mobility, Education, Functional Activity Shiv, Functional Strength, Group Therapy, Gait, Safety, Therapeutic Exercise, Transfers Treatment Duration: Oct 31, 2018 Frequency: At least 5 of 7 days/Wk (IRF) Estimated Hrs Per Day: 1.5 hours per day Patient and/or Family Agrees t: Yes Safety Risks/Education Patient Education: Gait Training, Transfer Techniques, Correct Positioning, Safety Issues Teaching Recipient: Patient Teaching Methods: Demonstration, Discussion Response to Teaching: Reinforcement Needed Time/GCodes Time In: 1100 Time Out: 1200 Total Billed Treatment Time: 60 Total Billed Treatment 1 visit GT 25' EX 35' PEBBLES BERRY PT Oct 26, 2018 11:54
[2018-10-26] MEDS: ASCORBIC ACID (VIT C) 500 MG TABLET PO SCH (12:32)
[2018-10-26] MEDS: LOSARTAN 50 MG (COZAAR) TAB PO SCH (12:34)
[2018-10-26] MEDS: [UNRECOGNIZED DRUG - OTHER] PO SCH (12:35)
--- NOTE | 2018-10-26 12:37 | NUR ---
Prior to noon medications pulse was 74 and b/p was 163/86
--- NOTE | 2018-10-26 15:00 | Therapy Group Daily Note ---
Therapy Daily Group Note Patient Education Topic Exercises Exercises LE Seated Exercise, UE Exercise Other/Notes Pt transported via w/c to OT/PT group in [facility]. Group consisted of introductions (name, number of siblings, favorite Benny gift), socialization , seated UE/LE exercises and education on utilizing everyday items for exercising. Pt introduced self appropriately and actively listened to peers. Completed and tolerated UE/LE seated exercises then was able to contribute an exercise. Verbalized understanding of educational topics and was able to contribute own personal strategies. After therapy, pt lying in bed with call light/phone in reach. All needs met in room. Start Time: 13:00 Stop Time: 14:00 Total Billed Treatment Time: 60 Total Billed Treatment 1-JORGE DONIS Oct 26, 2018 15:00
--- NOTE | 2018-10-26 16:25 | NUR ---
[employer]OPER [employer] met with patient to review team conference summary. As patient is transferring with minimum assistance, ambulating 130 feet with contact-guard assistance, completing upper body dressing with minimum assistance and requiring mod assist for toileting and bathing team has not recommended discharge until 11/02. Following discussion of home visit yesterday, [employer] recommended patient complete another day pass this weekend to trial home. Patient is agreeable to this. [employer] will contact patient's spouse to review team conference and discuss discharge plans.
[2018-10-26 16:56] VITALS: BP 185/97
[2018-10-26] MEDS: glyBURIDE 5 MG (MICRONASE) TAB PO SCH (18:00)
[2018-10-26] MEDS: ALPRAZolam 0.25 MG (XANAX) TAB PO PRN (20:12)
[2018-10-26] MEDS: MELATONIN 3 MG TABLET PO SCH (20:12)
[2018-10-26] MEDS: ASPIRIN E.C. 81 MG (ECOTRIN) TAB PO SCH (20:12)
[2018-10-26] MEDS: inSUlin DETERMIR 1 UNIT/0.01 ML (LEVEMIR) CHARGE PER UNIT SQ SCH (20:41)
[2018-10-27 05:48] VITALS: BP 176/87
[2018-10-27] MEDS: inSUlin ASPART (NovoLOG) 1 UNIT/0.01 ML (CHARGE PER UNIT) SC SCH ×4 (06:09→20:41)
[2018-10-27] MEDS: metFORMIN 500 MG (GLUCOPHAGE) TAB PO SCH ×2 (06:22→17:13)
[2018-10-27] MEDS: MULTIVIT W/MINERALS TAB (THERAGRAN M) PO SCH (06:22)
[2018-10-27] MEDS: LACTOBACILLUS ACIDOPHILUS (PROBIOTIC) CAPSULE PO SCH (06:22)
[2018-10-27] MEDS: glyBURIDE 2.5 MG (MICRONASE) TAB PO SCH (06:22)
[2018-10-27] MEDS: KCL 10 MEQ TAB (MICRO K) PO SCH (06:22)
[2018-10-27] MEDS: meTOprolol TARTRATE 50 MG (LOPRESSOR) TAB PO SCH ×2 (08:02→20:40)
[2018-10-27] MEDS: FLUTICASONE NASAL SPRAY (FLONASE) 16 GM BTL NS SCH (08:02)
[2018-10-27] MEDS: cloNIDine 0.1 MG (CATAPRES) TAB PO SCH ×3 (08:02→20:40)
[2018-10-27] MEDS: VITAMIN D3 1,000 UNITS (CHOLECALCIFEROL) TABLET PO SCH (08:02)
[2018-10-27] MEDS: METANX PO SCH ×2 (08:02→20:42)
[2018-10-27] MEDS: PHENAZOPYRIDINE 100 MG (PYRIDIUM) TABLET PO SCH ×3 (09:01→17:14)
--- NOTE | 2018-10-27 09:09 | NUR ---
Prior to a.m. medications pulse was 75 and b/p was 137/95
--- NOTE | 2018-10-27 09:54 | Physical Therapy Daily Note ---
PT Daily Note-Current Subjective Agrees to PT. Requests to toilet. Reports she typically uses the bedside commode. When transitioning supine to sit, she reports, "they usually pull me over with the square." Mental Status Patient Orientation: Person, Place, Time, Situation Transfers Therapy Code Descriptions/Definitions Functional [place] Measure: 0=Not Assessed/NA 4=Minimal Assistance 1=Total Assistance 5=Supervision or Setup 2=Maximal Assistance 6=Modified [place] 3=Moderate Assistance 7=Complete [place] Therapy Quality Codes: 6 Independent with activity with or without an assistive device 5 Patient requires set up or clean up by helper. Patient completes activity by themselves 4 Supervision or touching assist (CGA). [place] provide cues , steadying assist 3 The helper provides less than half the effort to complete the activity 2 The helper provides more than half the effort to complete the activity 1 Dependent. The helper does all the effort to complete an activity 7 Patient refused to complete or attempt activity 9 The patient did not perform the activity before the current illness or injury 88 Not attempted due to Medical conditions or safety concerns Transfers (B, C, W/C) (FIM): 3 Rollin (heavy cues for sequencing and task seqmentation; worked on rolling left and right for treatment) Supine to/from Sit: 3 (assist with trunk and legs; worked on sequencing for sit to / from supine x 2 reps; heavy cues to complete task and to problem solve the skill) Sit to/from Stand: 4 (CGA for safety) Worked on functional bed mobilty with education and cues on sequencing and best method to transfer. Educated pt, nurse and nurse tech that patient needs to walk to from the bathroom, not use the bedside commode and work on bed mobility instead of staff just pulling the square to move her. Spent much time completing bed mobility and then worked sit to stand x 5 reps. Toileted with CGA for transfers and as she managed her underclothing. CGA as she stood at the sink to wash her hands. Weight Bearing Right Lower Extremity: Right Full Weight Bearing Left Lower Extremity: Left Full Weight Bearing Gait Training Does the Patient Walk?: Yes Gait (FIM): 2 Distance (FIM): 1=526-51 ft Distance: 125 ft x 3; 50 ft x 2 Gait Assistive Device: FWW slow gait; narrow HOSSEIN and decreased step length. Tends to keep head down and her knees melt as she becomes tired, she is able to correct with cues. Exercises Seated Therapy Exercises: Ankle pumps, Long arc quads, Hip flexion Seated Reps: 15 (exaggerated motions to promote movement and active mobility of her legs as she tends to move in small increaments and slowly) Treatments Functional transfers, task initiation, self initiation, gait and ther ex Assessment Current Status: Good Progress Pt very slow with all transitions to the point that she goes so slow the transfer is more difficulty. Heavy discussion on self initiation and dependence on herself rather than others. Worked on problem solving and breaking down the transfer to encourage her to transfer better. She is slow, moves with small movement and tires easily. Requires cues and encouragment to push herself to perform better each time. she is cooperative and responded well to the education and encouragement. Her initiation and movement improved with the treatment. PT Short Term Goals Short Term Goals Time Frame: Oct 17, 2018 Transfers (B,C,W/C) (FIM): 4 Gait (FIM): 2 (met) Distance (FIM): 6=642-41 ft Gait Distance Comment: 50 ft Gait Level of Assist: 4 Gait Assistive Device: FWW Wheelchair Distance: 0 feet Stairs (FIM): 2 # of Steps: 1 PT [place] Operator Goals Snf Goals PT [place] Operator Goals Time Frame: Oct 31, 2018 Transfers (B,C,W/C) (FIM): 6 Sit to Lying (QC): 6 Lying-Sitting on Side/Bed(QC): 6 Sit to Stand (QC): 6 Rollin Roll Left to Right (QC): 6 Chair/Mav-ke-Iahgl Xfer(QC): 6 Car Transfer (QC): 5 Does the Patient Walk: No and Walking Goal IS indicated Gait (FIM): 6 Gait distance (FIM): 3=150 ft Walk 10 feet (QC): 6 Walk 10ft-Uneven Surface(QC): 5 Walk 50ft with 2 Turns (QC): 6 Walk 150 ft (QC): 6 Gait Level of Assist: 6 Gait Assistive Device: FWW Does the Pt use WC or Scooter?: Yes Wheelchair (FIM): 6 Wheelchair distance (FIM): 3=150 ft Wheel 50 feet with 2 turns (QC: 6 Stairs (FIM): 5 # of Steps: 4 1 Step (curb) (QC): 6 4 Steps (QC): 6 12 Steps (QC): 88 Picking up an Object (QC): 4 PT Plan Problem List Problem List: Activity Tolerance, Functional Strength, Safety, Balance, Gait, Transfer, Bed Mobility, Other (self initiaion.) Treatment/Plan Treatment Plan: Continue Plan of Care Treatment Plan: Bed Mobility, Education, Functional Activity Shiv, Functional Strength, Group Therapy, Gait, Safety, Therapeutic Exercise, Transfers Treatment Duration: Oct 31, 2018 Frequency: At least 5 of 7 days/Wk (IRF) Estimated Hrs Per Day: 1.5 hours per day Patient and/or Family Agrees t: Yes Safety Risks/Education Patient Education: Transfer Techniques, Safety Issues Teaching Recipient: Patient Teaching Methods: Demonstration, Discussion Response to Teaching: Return Demonstration, Reinforcement Needed Discharge Recommendations Therapy D/C Recommendations: Physical Therapy Home Care Time/GCodes Time In: 750 Time Out: 855 Total Billed Treatment Time: 65 Total Billed Treatment visit FA 30 EX 15 GT 20 JORGE WINCHESTER PT Oct 27, 2018 09:54
--- NOTE | 2018-10-27 10:20 | NUR ---
PT EATING FAIR, 68% MEALS, BUT WEIGHT HAS INCREASED AND PT IS GETTING STRONGER. INTAKE MEETING NEEDS AT THIS TIME. CONT SAME.
--- NOTE | 2018-10-27 11:05 | Progress Note-Hospitalist ---
Subjective HPI/CC On Admission Date Seen by Provider: Oct 27, 2018 Time Seen by Provider: 10:00 Pt is a 67yoCF known to me from recent admission who was admitted to ARU following inpatient stay at [facility] where she was diagnosed with MS. She has no complaints today other than how she looks. Discussed with RN who states that her BP has been much better today. I am consulted for medical management. Subjective/Events-last exam Patient doing well Will go on a day pass home on Wednesday to see how that goes Getting closer to going home No longer using a bedside commode and getting up to go to the bathroom Incontinence is returning Overall slow recovery but doing well Bowels are moving Review of Systems General: Fatigue Objective Exam Vital Signs Vital Signs Date Time Temp Pulse Resp B/P (MAP) Pulse Ox O2 Delivery O2 Flow Rate FiO2 10/27/18 09:00 92 Room Air 10/27/18 05:48 97.9 74 20 176/87 (116) Capillary Refill : General Appearance: No Apparent Distress, WD/WN, Chronically ill, Thin Respiratory: Chest Non Tender, Lungs Clear, Normal Breath Sounds, No Accessory Muscle Use, No Respiratory Distress Cardiovascular: Regular Rate, Rhythm, No Edema, No Gallop, No JVD, No Murmur, Normal Peripheral Pulses Neurologic/Psychiatric: Alert, Oriented x3, No Motor/Sensory Deficits, Depressed Affect Results/Procedures Lab Patient resulted labs reviewed. Assessment/Plan Assessment and Plan Assess & Plan/Chief Complaint Assessment: Multiple sclerosis Acute dysuria urine culture negative from sterile and out catheter and placed on Pyridium empirically Status post urinary retention urology managing Atrial fibrillation history CVA in 2009 Diabetes mellitus Hypertension Diabetic peripheral neuropathy Plan: Continue advancing diet Monitor urinary issues Supportive care Diagnosis/Problems Diagnosis/Problems (1) Generalized weakness Status: Acute (2) Multiple sclerosis Status: Chronic (3) Hypertension Status: Chronic Qualifiers: Hypertension type: essential hypertension Qualified Codes: I10 - Essential (primary) hypertension (4) Insulin dependent diabetes mellitus Status: Chronic (5) Hyperlipidemia Status: Chronic Qualifiers: Hyperlipidemia type: mixed hyperlipidemia Qualified Codes: E78.2 - Mixed hyperlipidemia (6) History of stroke Status: Chronic (7) Dysuria Status: Acute Clinical Quality Measures DVT/VTE Risk/Contraindication: Risk Factor Score Per Nursin RFS Level Per Nursing on Admit: 4+=Very High FAIZA JOLLEY DO Oct 27, 2018 11:05
[2018-10-27] MEDS: LOSARTAN 50 MG (COZAAR) TAB PO SCH (11:53)
[2018-10-27] MEDS: ASCORBIC ACID (VIT C) 500 MG TABLET PO SCH (11:53)
[2018-10-27] MEDS: [UNRECOGNIZED DRUG - OTHER] PO SCH (11:53)
--- NOTE | 2018-10-27 11:59 | Occupational Ther Daily Note ---
OT Current Status-Daily Note Subjective Pt alert, sitting in recliner. Pt agrees to therapy. C/o discomfort at tailbone area, is red and applied ointment after shower, reported to nrsg. Mental Status/Objective Patient Orientation: Person, Place, Time, Situation Therapy Code Descriptions/Definitions Functional [place] Measure: 0=Not Assessed/NA 4=Minimal Assistance 1=Total Assistance 5=Supervision or Setup 2=Maximal Assistance 6=Modified [place] 3=Moderate Assistance 7=Complete [place] ADL-Treatment Therapy Code Descriptions/Definitions Functional [place] Measure: 0=Not Assessed/NA 4=Minimal Assistance 1=Total Assistance 5=Supervision or Setup 2=Maximal Assistance 6=Modified [place] 3=Moderate Assistance 7=Complete [place] Therapy Quality Codes: 6 Independent with activity with or without an assistive device 5 Patient requires set up or clean up by helper. Patient completes activity by themselves 4 Supervision or touching assist (CGA). [place] provide cues , steadying assist 3 The helper provides less than half the effort to complete the activity 2 The helper provides more than half the effort to complete the activity 1 Dependent. The helper does all the effort to complete an activity 7 Patient refused to complete or attempt activity 9 The patient did not perform the activity before the current illness or injury 88 Not attempted due to Medical conditions or safety concerns Grooming (FIM): 6 (Sitting at sink, pt able to complete by self.) Oral Hygiene (QC): 6 Bathing (FIM): 4 (CGA in standing for balance while pt cleanses lauri area/ buttocks. Pt able to reach other areas in sitting.) Bathing Location: L Arm, R Arm, L Upper Leg, R Upper Leg, L Lower Leg ( including foot), R Lower Leg (including foot), Chest, Abdomen, Buttocks, Perineal Area Shower/Bathe Self (QC): 4 Upper Body (FIM): 3 (Assist to manipulate clothing to accessible area then pt able to nail puller head and up arms. Assist to pull down in back.) Upper Body Dressing (QC): 3 Lower Body Dressing (FIM): 3 (Pt is able to use AE more efficiently to dress. Assist still needed to manipulate clothing and start AE with clothing. Pt able to pull up legs and partly hike pants over hips. Assist to hike over buttocks.) Lower Body Dressing (QC): 2 On/Off Footwear (QC): 2 Toileting (FIM): 4 (Pt leaning toward R side while sitting on toilet. CGA for balance while pt cleanses self and min A to hike pants over buttocks.) Toileting Hygiene (QC): 3 Toilet/Commode Transfer (FIM): 3 (Pt ambulated using FWW to toilet and fatigued during transfer then knees began to give out and pt's LE's melted as she sat down on toilet.) Toilet Transfer (QC): 3 Shower Transfer(FIM): 3 (Ambulated to toilet using FWW and required verbal cues to stand up straight. Using w/c to transfer out of shower, min A.) Pt takes increased time due to decrease activity tolerance and slow movements. After therapy, pt sitting in recliner with call light/phone in reach. All needs met in room. present in room. OT Short Term Goals Short Term Goals Time Frame: Oct 17, 2018 Eating(FIM): 3 Grooming(FIM): 3 Bathing(FIM): 3 Upper Body Dressing(FIM): 4 Lower Body Dressing(FIM): 3 Toileting(FIM): 3 Transfers (B,C,W/C) (FIM): 4 Toilet/Commode Transfer(FIM): 4 Shower Transfer(FIM): 4 Additional Short Term Goals: 1-Demonstrate ADL Tasks, 2-Verbalize Understanding , 3-ImproveStrength/Shiv 1=Demonstrate adherence to instructed precautions during ADL tasks. 2=Patient will verbalize/demonstrate understanding of assistive devices/ modifications for ADL. 3=Patient will improve strength/tolerance for activity to enable patient to perform ADL's. OT Fpc Goals Fpc Goals Time Frame: Oct 31, 2018 Eating (FIM): 6 Eating (QC): 6 Groomin Oral Hygiene (QC): 5 Bathing(FIM): 5 Shower/Bathe Self (QC): 4 Upper Body Dressing(FIM): 5 Upper Body Dressing (QC): 5 Lower Body Dressing(FIM): 5 Lower Body Dressing (QC): 4 On/Off Footwear (QC): 4 Toileting(FIM): 6 Toileting Hygiene (QC): 6 Transfers (B,C,W/C) (FIM): 6 Toilet/Commode Transfer(FIM): 6 Toilet/Commode Transfer (QC): 6 Shower Transfer(FIM): 5 Additional Goals: 1-Demonstrate ADL Tasks, 2-Verbalize Understanding, 3- ImproveStrength/Shiv 1=Demonstrate adherence to instructed precautions during ADL tasks. 2=Patient will verbalize/demonstrate understanding of assistive devices/ modifications for ADL. 3=Patient will improve strength/tolerance for activity to enable patient to perform ADL's. OT Education/Plan Discharge Recommendations Plan/Recommendations: Continue POC Treatment Plan/Plan of Care Patient would benefit from OT for education, treatment and training to promote independence in ADL's, mobility, safety and/or upper extremity function for ADL' s. Plan of Care: ADL Retraining, Caregiver Training, Cognitive Retraining, Functional Mobility, Group Exercise/Act as Ind, UE Funct Exercise/Act Treatment Duration: Oct 31, 2018 Frequency: At least 5 of 7 days/Wk (IRF) Estimated Hrs Per Day: 1.5 hours per day Agreement: Yes Rehab Potential: Good Time/GCodes Start Time: 10:30 Stop Time: 12:00 Total Time Billed (hr/min): 90 Billed Treatment Time 1 visit-ADL 6 (90 min) JORGE TERRY Oct 27, 2018 11:59
[2018-10-27] MEDS ORDERED: amLODIPine 5 MG (NORVASC) TAB PO ONE (12:00)
--- NOTE | 2018-10-27 15:11 | Speech Therapy Daily Note ---
Speech Daily Progress Note Subjective Date Seen by Provider: Oct 27, 2018 Time Seen by Provider: 00:30 Patient was pleasant. She was resting in her recliner after PT session when I entered the room. Objective Patient was able to complete a series of memory questions related to self and daily tasks with 90% accuracy given minimal cuing. Assessment Assessment Current Status: Good Progress Treatment Plan Continue Plan of Care Communication Comprehension: 4 Expression: 4 Social Cognition Social Interaction: 3 Problem Solvin Memory: 3 Speech Short Term Goals Short Term Goals Short Term Goals 1) Patient will use appropriate linguistic forms to communicate in everyday situations, with 90% or greater accuracy. 2) Patient will identify functions of common items, with 90% or greater accuracy. 3) Patient will express her wants/needs effectively with 90% accuracy. Speech Mcc Goals Distribution Warehouse Manager Goals Patient will be able to effectively communicate within her immediate living environment at 90%. Speech-Plan Patient/Family Goals Patient/Family Goals: Patient will return home with her post rehab. Treatment Plan Speech Therapy Treatment Plan: Continue Plan of Care Patient continues to progress with skilled therapy. Treatment Duration: Oct 28, 2018 Frequency: 5 times per week Estimated Hrs Per Day: .5 hour per day Rehab Potential: Good Barriers to Learning: Patient is weak. Pt/Family Agrees to Plan: Yes Safety Risks/Education Teaching Recipient: Patient Teaching Methods: Discussion Response to Teaching: Verbalize Understanding Education Topics Provided: Safety Time Speech Therapy Time In: 09:00 Speech Therapy Time Out: 09:30 Total Billed Time: 30 Billed Treatment Time 1K[address] Oct 27, 2018 15:10
--- NOTE | 2018-10-27 15:12 | Physical Therapy Daily Note ---
PT Daily Note-Current Subjective "I was hoping to get a nap before you came." Agrees to PT anyway. Transfers Therapy Code Descriptions/Definitions Functional [place] Measure: 0=Not Assessed/NA 4=Minimal Assistance 1=Total Assistance 5=Supervision or Setup 2=Maximal Assistance 6=Modified [place] 3=Moderate Assistance 7=Complete [place] Therapy Quality Codes: 6 Independent with activity with or without an assistive device 5 Patient requires set up or clean up by helper. Patient completes activity by themselves 4 Supervision or touching assist (CGA). [place] provide cues , steadying assist 3 The helper provides less than half the effort to complete the activity 2 The helper provides more than half the effort to complete the activity 1 Dependent. The helper does all the effort to complete an activity 7 Patient refused to complete or attempt activity 9 The patient did not perform the activity before the current illness or injury 88 Not attempted due to Medical conditions or safety concerns Worked on sup to from sit x 2 reps with focus on pt initiation and performing on her own. Best technique is to roll to her right, drop her legs off and push up with her arms. She needs min assist and cues 50% of the time to complete. Sit to stand with SBA. Sit to stand x 5 reps for practice as well. Weight Bearing Right Lower Extremity: Right Full Weight Bearing Left Lower Extremity: Left Full Weight Bearing Gait Training Does the Patient Walk?: Yes Gait (FIM): 2 Distance (FIM): 9=773-31 ft Distance: 125 ft x 4 Gait Assistive Device: FWW Skilled cues to stand straight and to take large steps. CGA for safety. Raised her walker 1 notch. Treatments Pt in bed post treatment with needs met. Worked on her positioning herself comfortably in bed with bridging and using her elbows to push up to move her shoulders. Able to complete with verbal cues and min assit. Assessment Current Status: Good Progress Much improvement with bed mobioltiy and transfers. More initiation this visit. PT Short Term Goals Short Term Goals Time Frame: Oct 17, 2018 Transfers (B,C,W/C) (FIM): 4 Gait (FIM): 2 (met) Distance (FIM): 9=516-53 ft Gait Distance Comment: 50 ft Gait Level of Assist: 4 Gait Assistive Device: FWW Wheelchair Distance: 0 feet Stairs (FIM): 2 # of Steps: 1 PT Architectural Designer Goals Architectural Designer Goals PT Correction Goals Time Frame: Oct 31, 2018 Transfers (B,C,W/C) (FIM): 6 Sit to Lying (QC): 6 Lying-Sitting on Side/Bed(QC): 6 Sit to Stand (QC): 6 Rollin (heavy cues for sequencing and task seqmentation; worked on rolling left and right for treatment) Roll Left to Right (QC): 6 Chair/Eca-yp-Aeify Xfer(QC): 6 Car Transfer (QC): 5 Does the Patient Walk: No and Walking Goal IS indicated Gait (FIM): 6 Gait distance (FIM): 3=150 ft Walk 10 feet (QC): 6 Walk 10ft-Uneven Surface(QC): 5 Walk 50ft with 2 Turns (QC): 6 Walk 150 ft (QC): 6 Gait Level of Assist: 6 Gait Assistive Device: FWW Does the Pt use WC or Scooter?: Yes Wheelchair (FIM): 6 Wheelchair distance (FIM): 3=150 ft Wheel 50 feet with 2 turns (QC: 6 Stairs (FIM): 5 # of Steps: 4 1 Step (curb) (QC): 6 4 Steps (QC): 6 12 Steps (QC): 88 Picking up an Object (QC): 4 PT Plan Problem List Problem List: Activity Tolerance, Functional Strength, Safety, Balance, Gait, Transfer, Bed Mobility Treatment/Plan Treatment Plan: Continue Plan of Care Treatment Plan: Bed Mobility, Education, Functional Activity Shiv, Functional Strength, Group Therapy, Gait, Safety, Therapeutic Exercise, Transfers Treatment Duration: Oct 31, 2018 Frequency: At least 5 of 7 days/Wk (IRF) Estimated Hrs Per Day: 1.5 hours per day Patient and/or Family Agrees t: Yes Safety Risks/Education Patient Education: Transfer Techniques Teaching Recipient: Patient Teaching Methods: Demonstration Response to Teaching: Verbalize Understanding, Return Demonstration Time/GCodes Time In: 1315 Time Out: 1345 Total Billed Treatment Time: 30 Total Billed Treatment visit FA 20 GT 10 JORGE WINCHESTER PT Oct 27, 2018 15:12
[2018-10-27] MEDS: glyBURIDE 5 MG (MICRONASE) TAB PO SCH (17:14)
[2018-10-27 18:00] VITALS: BP 180/79
[2018-10-27 20:23] VITALS: BP 176/82
[2018-10-27] MEDS: MELATONIN 3 MG TABLET PO SCH (20:40)
[2018-10-27] MEDS: ALPRAZolam 0.25 MG (XANAX) TAB PO PRN (20:40)
[2018-10-27] MEDS: inSUlin DETERMIR 1 UNIT/0.01 ML (LEVEMIR) CHARGE PER UNIT SQ SCH (20:41)
[2018-10-27] MEDS: ASPIRIN E.C. 81 MG (ECOTRIN) TAB PO SCH (20:41)
[2018-10-28] MEDS: inSUlin ASPART (NovoLOG) 1 UNIT/0.01 ML (CHARGE PER UNIT) SC SCH ×4 (05:28→20:43)
[2018-10-28 05:31] VITALS: BP 173/84
[2018-10-28] MEDS: metFORMIN 500 MG (GLUCOPHAGE) TAB PO SCH ×2 (06:01→17:00)
[2018-10-28] MEDS: KCL 10 MEQ TAB (MICRO K) PO SCH (06:01)
[2018-10-28] MEDS: MULTIVIT W/MINERALS TAB (THERAGRAN M) PO SCH (06:02)
[2018-10-28] MEDS: LACTOBACILLUS ACIDOPHILUS (PROBIOTIC) CAPSULE PO SCH (06:02)
[2018-10-28] MEDS: glyBURIDE 2.5 MG (MICRONASE) TAB PO SCH (06:02)
[2018-10-28] MEDS: IBUPROFEN TABLET 200 MG TAB PO PRN ×2 (06:02→20:43)
[2018-10-28] MEDS: VITAMIN D3 1,000 UNITS (CHOLECALCIFEROL) TABLET PO SCH (07:59)
[2018-10-28] MEDS: PHENAZOPYRIDINE 100 MG (PYRIDIUM) TABLET PO SCH (07:59)
[2018-10-28] MEDS: METANX PO SCH ×2 (07:59→20:37)
[2018-10-28] MEDS: FLUTICASONE NASAL SPRAY (FLONASE) 16 GM BTL NS SCH (07:59)
[2018-10-28] MEDS: meTOprolol TARTRATE 50 MG (LOPRESSOR) TAB PO SCH ×2 (08:00→20:39)
[2018-10-28] MEDS: amLODIPine 5 MG (NORVASC) TAB PO SCH (08:00)
[2018-10-28] MEDS: cloNIDine 0.1 MG (CATAPRES) TAB PO SCH ×3 (08:00→20:39)
--- NOTE | 2018-10-28 08:42 | NUR ---
PRIOR TO A.M. MEDICATIONS PULSE WAS 82 AND B/P WAS 165/82
--- NOTE | 2018-10-28 09:03 | Occupational Ther Daily Note ---
OT Current Status-Daily Note Subjective Pt alert, lying in bed. Pt agrees to therapy. No c/o pain. Does c/o increased fatigue and muscle soreness. Mental Status/Objective Patient Orientation: Person, Place, Time, Situation Therapy Code Descriptions/Definitions Functional [place] Measure: 0=Not Assessed/NA 4=Minimal Assistance 1=Total Assistance 5=Supervision or Setup 2=Maximal Assistance 6=Modified [place] 3=Moderate Assistance 7=Complete [place] ADL-Treatment Pt able to open loosened bottles and containers. Pt able to complete all other set up for eating. Min A supine to EOB with HOB raised. Ambulated to bathroom using FWW, CGA. Transferred to toilet using FWW and grabbars requiring verbal cues to position self for safe sitting. Assist to manipulate clothing then cleansed self. Transferred to w/c with CGA. Mod A using AE for lower body dressing and hiking pants over hips. CGA to get shirt unstuck then pt able to complete donning/doffing shirt. Mod I for grooming. Pt takes increased time to complete all tasks due to decreased activity tolerance and slower movements. PT took over care in room. All needs met. Therapy Code Descriptions/Definitions Functional [place] Measure: 0=Not Assessed/NA 4=Minimal Assistance 1=Total Assistance 5=Supervision or Setup 2=Maximal Assistance 6=Modified [place] 3=Moderate Assistance 7=Complete [place] Therapy Quality Codes: 6 Independent with activity with or without an assistive device 5 Patient requires set up or clean up by helper. Patient completes activity by themselves 4 Supervision or touching assist (CGA). [place] provide cues , steadying assist 3 The helper provides less than half the effort to complete the activity 2 The helper provides more than half the effort to complete the activity 1 Dependent. The helper does all the effort to complete an activity 7 Patient refused to complete or attempt activity 9 The patient did not perform the activity before the current illness or injury 88 Not attempted due to Medical conditions or safety concerns Eating (FIM): 5 Eating (QC): 5 Grooming (FIM): 6 Oral Hygiene (QC): 6 Upper Body (FIM): 4 Upper Body Dressing (QC): 4 Lower Body Dressing (FIM): 3 Lower Body Dressing (QC): 3 Toileting (FIM): 4 Toileting Hygiene (QC): 3 Toilet/Commode Transfer (FIM): 4 Toilet Transfer (QC): 4 OT Short Term Goals Short Term Goals Time Frame: Oct 17, 2018 Eating(FIM): 3 Grooming(FIM): 3 Bathing(FIM): 3 Upper Body Dressing(FIM): 4 Lower Body Dressing(FIM): 3 Toileting(FIM): 3 Transfers (B,C,W/C) (FIM): 4 Toilet/Commode Transfer(FIM): 4 Shower Transfer(FIM): 4 Additional Short Term Goals: 1-Demonstrate ADL Tasks, 2-Verbalize Understanding , 3-ImproveStrength/Shiv 1=Demonstrate adherence to instructed precautions during ADL tasks. 2=Patient will verbalize/demonstrate understanding of assistive devices/ modifications for ADL. 3=Patient will improve strength/tolerance for activity to enable patient to perform ADL's. OT [place] Cutter Goals Snf Goals Time Frame: Oct 31, 2018 Eating (FIM): 6 Eating (QC): 6 Groomin Oral Hygiene (QC): 5 Bathing(FIM): 5 Shower/Bathe Self (QC): 4 Upper Body Dressing(FIM): 5 Upper Body Dressing (QC): 5 Lower Body Dressing(FIM): 5 Lower Body Dressing (QC): 4 On/Off Footwear (QC): 4 Toileting(FIM): 6 Toileting Hygiene (QC): 6 Transfers (B,C,W/C) (FIM): 6 Toilet/Commode Transfer(FIM): 6 Toilet/Commode Transfer (QC): 6 Shower Transfer(FIM): 5 Additional Goals: 1-Demonstrate ADL Tasks, 2-Verbalize Understanding, 3- ImproveStrength/Shiv 1=Demonstrate adherence to instructed precautions during ADL tasks. 2=Patient will verbalize/demonstrate understanding of assistive devices/ modifications for ADL. 3=Patient will improve strength/tolerance for activity to enable patient to perform ADL's. OT Education/Plan Discharge Recommendations Plan/Recommendations: Continue POC Treatment Plan/Plan of Care Patient would benefit from OT for education, treatment and training to promote independence in ADL's, mobility, safety and/or upper extremity function for ADL' s. Plan of Care: ADL Retraining, Caregiver Training, Cognitive Retraining, Functional Mobility, Group Exercise/Act as Ind, UE Funct Exercise/Act Treatment Duration: Oct 31, 2018 Frequency: At least 5 of 7 days/Wk (IRF) Estimated Hrs Per Day: 1.5 hours per day Agreement: Yes Rehab Potential: Good Time/GCodes Start Time: 07:00 Stop Time: 08:00 Total Time Billed (hr/min): 60 Billed Treatment Time 1 visit-ADL 4 (60 min) JORGE TERRY Oct 28, 2018 09:03
[2018-10-28] MEDS ORDERED: PHENAZOPYRIDINE 100 MG (PYRIDIUM) TABLET PO PRN (11:15)
--- NOTE | 2018-10-28 11:27 | Progress Note-Hospitalist ---
Subjective HPI/CC On Admission Date Seen by Provider: Oct 28, 2018 Time Seen by Provider: 11:00 Pt is a 67yoCF known to me from recent admission who was admitted to ARU following inpatient stay at [place] where she was diagnosed with MS. She has no complaints today other than how she looks. Discussed with RN who states that her BP has been much better today. I am consulted for medical management. Subjective/Events-last exam Patient doing well Slow recovery which frustrates her We'll change Pyridium to 3 times a day when necessary Will apply Calmoseptine topical to perianal area that is irritated Review of Systems General: Fatigue Objective Exam Vital Signs Vital Signs Date Time Temp Pulse Resp B/P (MAP) Pulse Ox O2 Delivery O2 Flow Rate FiO2 10/28/18 09:00 96 Room Air 10/28/18 05:31 97.7 64 20 173/84 (113) Capillary Refill : General Appearance: No Apparent Distress, WD/WN, Chronically ill, Thin Respiratory: Chest Non Tender, Lungs Clear, Normal Breath Sounds, No Accessory Muscle Use, No Respiratory Distress Cardiovascular: Regular Rate, Rhythm, No Edema, No Gallop, No JVD, No Murmur, Normal Peripheral Pulses Neurologic/Psychiatric: Alert, Oriented x3, No Motor/Sensory Deficits, Depressed Affect Results/Procedures Lab Patient resulted labs reviewed. Assessment/Plan Assessment and Plan Assess & Plan/Chief Complaint Assessment: Multiple sclerosis Acute dysuria urine culture negative from sterile and out catheter and placed on Pyridium empirically Status post urinary retention urology managing Atrial fibrillation history CVA in 2009 Diabetes mellitus Hypertension Diabetic peripheral neuropathy Plan: Continue advancing diet Monitor urinary issues Supportive care Diagnosis/Problems Diagnosis/Problems (1) Generalized weakness Status: Acute (2) Multiple sclerosis Status: Chronic (3) Hypertension Status: Chronic Qualifiers: Hypertension type: essential hypertension Qualified Codes: I10 - Essential (primary) hypertension (4) Insulin dependent diabetes mellitus Status: Chronic (5) Hyperlipidemia Status: Chronic Qualifiers: Hyperlipidemia type: mixed hyperlipidemia Qualified Codes: E78.2 - Mixed hyperlipidemia (6) History of stroke Status: Chronic (7) Dysuria Status: Acute Clinical Quality Measures DVT/VTE Risk/Contraindication: Risk Factor Score Per Nursin RFS Level Per Nursing on Admit: 4+=Very High FAIZA JOLLEY DO Oct 28, 2018 11:27
[2018-10-28] MEDS: [UNRECOGNIZED DRUG - OTHER] PO SCH (11:41)
[2018-10-28] MEDS: ASCORBIC ACID (VIT C) 500 MG TABLET PO SCH (11:41)
[2018-10-28] MEDS: LOSARTAN 50 MG (COZAAR) TAB PO SCH (11:41)
--- NOTE | 2018-10-28 11:47 | NUR ---
prior to b/p medications pulse was 74 and b/p was 164/88
--- NOTE | 2018-10-28 13:25 | Physical Therapy Daily Note ---
PT Daily Note-Current Subjective Pt reports tired and sore from yesterday and this morning therapies. States her legs are sore but agreeable to working with physical therapy Pain Numeric Pain Scale: 5-Moderate Pain Comment: legs and all over Appearance upon arrival into pt's room, pt returning from bathroom with OT At end of session, pt right sidelying in bed with call light, phone and bedside table within reach Mental Status Patient Orientation: Person, Place, Eyes Open, Situation pt's voice is very quiet Transfers Therapy Code Descriptions/Definitions Functional [place] Measure: 0=Not Assessed/NA 4=Minimal Assistance 1=Total Assistance 5=Supervision or Setup 2=Maximal Assistance 6=Modified [place] 3=Moderate Assistance 7=Complete [place] Therapy Quality Codes: 6 Independent with activity with or without an assistive device 5 Patient requires set up or clean up by helper. Patient completes activity by themselves 4 Supervision or touching assist (CGA). [place] provide cues , steadying assist 3 The helper provides less than half the effort to complete the activity 2 The helper provides more than half the effort to complete the activity 1 Dependent. The helper does all the effort to complete an activity 7 Patient refused to complete or attempt activity 9 The patient did not perform the activity before the current illness or injury 88 Not attempted due to Medical conditions or safety concerns Transfers (B, C, W/C) (FIM): 4 Scootin Rollin Roll Left to Right (QC): 5 Supine to/from Sit: 4 Sit to/from Stand: 5 Sit to Lying (QC): 5 Sit to Stand (QC): 5 increased time required to complete all transitions. Max encouragement and instruction for technique and to continue with activity. 25 minutes required to perform just sit to supine to sit. Weight Bearing Right Lower Extremity: Right Full Weight Bearing Left Lower Extremity: Left Full Weight Bearing Gait Training Does the Patient Walk?: Yes Gait (FIM): 5 Distance (FIM): 3=150 ft Distance: 150' x2 Gait Level of Assist: 5 Gait Persons Needed: 1 Gait Assistive Device: FWW decreased gait speed, step length and height, improved with encouragement and instruction to improve gait quality and posture, but requiring re instruction throughout 75% of distance walked Treatments gait transfer and bed mobility training Assessment very slow movements with all activities performed. Requiring max verb inst and encouragement to complete all activities. Gait does improve with instruction and re instruction to increase step length height and speed as well as standing more erect and closer to walker. Supine to sit continues to be very difficult for pt to perform PT Short Term Goals Short Term Goals Time Frame: Oct 17, 2018 Transfers (B,C,W/C) (FIM): 4 Gait (FIM): 2 (met) Distance (FIM): 1=152-04 ft Gait Distance Comment: 50 ft Gait Level of Assist: 4 Gait Assistive Device: FWW Wheelchair Distance: 0 feet Stairs (FIM): 2 # of Steps: 1 PT Feller Machine Operator Goals Jail Goals PT Feller Machine Operator Goals Time Frame: Oct 31, 2018 Transfers (B,C,W/C) (FIM): 6 Sit to Lying (QC): 6 Lying-Sitting on Side/Bed(QC): 6 Sit to Stand (QC): 6 Rollin (heavy cues for sequencing and task seqmentation; worked on rolling left and right for treatment) Roll Left to Right (QC): 6 Chair/Icz-jw-Rbjdi Xfer(QC): 6 Car Transfer (QC): 5 Does the Patient Walk: No and Walking Goal IS indicated Gait (FIM): 6 Gait distance (FIM): 3=150 ft Walk 10 feet (QC): 6 Walk 10ft-Uneven Surface(QC): 5 Walk 50ft with 2 Turns (QC): 6 Walk 150 ft (QC): 6 Gait Level of Assist: 6 Gait Assistive Device: FWW Does the Pt use WC or Scooter?: Yes Wheelchair (FIM): 6 Wheelchair distance (FIM): 3=150 ft Wheel 50 feet with 2 turns (QC: 6 Stairs (FIM): 5 # of Steps: 4 1 Step (curb) (QC): 6 4 Steps (QC): 6 12 Steps (QC): 88 Picking up an Object (QC): 4 PT Plan Problem List Problem List: Activity Tolerance, Functional Strength, Safety, Gait, Transfer, Bed Mobility, ROM Treatment/Plan Treatment Plan: Continue Plan of Care Treatment Plan: Bed Mobility, Education, Functional Activity Shiv, Functional Strength, Group Therapy, Gait, Safety, Therapeutic Exercise, Transfers Treatment Duration: Oct 31, 2018 Frequency: At least 5 of 7 days/Wk (IRF) Estimated Hrs Per Day: 1.5 hours per day Patient and/or Family Agrees t: Yes Safety Risks/Education Patient Education: Gait Training, Transfer Techniques, Safety Issues Teaching Recipient: Patient Teaching Methods: Demonstration, Discussion Response to Teaching: Verbalize Understanding, Return Demonstration, Reinforcement Needed Time/GCodes Time In: 800 Time Out: 845 Total Billed Treatment Time: 45 Total Billed Treatment 1 visit FA x35 minutes Gt x10 min RICA MCCLURE PTA Oct 28, 2018 13:25
--- NOTE | 2018-10-28 13:31 | NUR ---
HEEL EDGE INKER MACHINE met with patient and spouse to discuss home visit. They wish to proceed with home visit on Wednesday. HEEL EDGE INKER MACHINE requested Dr. Brown to place order.
--- NOTE | 2018-10-28 14:46 | Speech Therapy Daily Note ---
Speech Daily Progress Note Subjective Date Seen by Provider: Oct 28, 2018 Time Seen by Provider: 00:30 Patient sitting up in bed eating her lunch when I arrived. Objective Patient demonstrated ability to follow directions with minimal cues at 90%. Assessment Assessment Current Status: Good Progress Treatment Plan Continue Plan of Care Communication Comprehension: 4 Expression: 4 Social Cognition Social Interaction: 3 Problem Solvin Memory: 3 Speech Short Term Goals Short Term Goals Short Term Goals 1) Patient will use appropriate linguistic forms to communicate in everyday situations, with 90% or greater accuracy. 2) Patient will identify functions of common items, with 90% or greater accuracy. 3) Patient will express her wants/needs effectively with 90% accuracy. Speech Fpc Goals Fpc Goals Patient will be able to effectively communicate within her immediate living environment at 90%. Speech-Plan Patient/Family Goals Patient/Family Goals: Patient plans to return home 10/31/2018 with her . Treatment Plan Speech Therapy Treatment Plan: Continue Plan of Care Patient has made significant progress with skilled ST therapy. Treatment Duration: Oct 31, 2018 Frequency: 5 times per week Estimated Hrs Per Day: .5 hour per day Rehab Potential: Good Barriers to Learning: Patient is still weak. Pt/Family Agrees to Plan: Yes Safety Risks/Education Teaching Recipient: Patient Teaching Methods: Discussion Response to Teaching: Verbalize Understanding Education Topics Provided: Patient's safety when she returns home. Time Speech Therapy Time In: 12:15 Speech Therapy Time Out: 12:45 Total Billed Time: 30 Billed Treatment Time 1KEREN [address] ST Oct 28, 2018 14:46
--- NOTE | 2018-10-28 14:50 | Therapy Group Daily Note ---
Therapy Daily Group Note Patient Education Topic Other List Below (memory, ARU description expectations) Exercises LE Seated Exercise, UE Exercise Other/Notes Pt transported via w/c to OT/PT group in [facility]. Group consisted of introductions (name, place living, tell a joke), socialization, UE/LE seated exercises with breathing tech, ARU description/expectations, memory strategies and activity. Pt introduced self appropriately and actively listened to peers. Pt contributed to conversations and initiated conversations during group. Pt was able to give personal strategies for memory. Was able to match hidden pictures during memory activity. Pt completed UE/LE seated exercises with breathing. Pt verbalized understanding of educational topics. After therapy, pt sitting in recliner with call light/phone in reach. All needs met in room. Start Time: 13:00 Stop Time: 14:20 Total Billed Treatment Time: 80 Total Billed Treatment 1-GRP JORGE TERRY Oct 28, 2018 14:50
[2018-10-28 15:36] VITALS: BP 148/80
[2018-10-28] MEDS: glyBURIDE 5 MG (MICRONASE) TAB PO SCH (17:00)
[2018-10-28] MEDS: MELATONIN 3 MG TABLET PO SCH (20:39)
[2018-10-28] MEDS: ALPRAZolam 0.25 MG (XANAX) TAB PO PRN (20:40)
[2018-10-28] MEDS: ASPIRIN E.C. 81 MG (ECOTRIN) TAB PO SCH (20:40)
[2018-10-28] MEDS: inSUlin DETERMIR 1 UNIT/0.01 ML (LEVEMIR) CHARGE PER UNIT SQ SCH (20:43)
[2018-10-28 20:49] VITALS: BP 180/84
[2018-10-29 05:21] VITALS: BP 183/83
[2018-10-29] MEDS: inSUlin ASPART (NovoLOG) 1 UNIT/0.01 ML (CHARGE PER UNIT) SC SCH ×4 (05:36→21:06)
[2018-10-29] MEDS: glyBURIDE 2.5 MG (MICRONASE) TAB PO SCH (06:42)
[2018-10-29] MEDS: MULTIVIT W/MINERALS TAB (THERAGRAN M) PO SCH (06:42)
[2018-10-29] MEDS: LACTOBACILLUS ACIDOPHILUS (PROBIOTIC) CAPSULE PO SCH (06:42)
[2018-10-29] MEDS: KCL 10 MEQ TAB (MICRO K) PO SCH (06:43)
[2018-10-29] MEDS: metFORMIN 500 MG (GLUCOPHAGE) TAB PO SCH ×2 (06:43→17:12)
--- NOTE | 2018-10-29 07:05 | Occupational Ther Daily Note ---
OT Current Status-Daily Note Subjective Pt alert, lying in bed. Pt stated that she did not sleep well. Agrees to therapy. No c/o pain. Mental Status/Objective Patient Orientation: Person, Place, Time, Situation Therapy Code Descriptions/Definitions Functional [place] Measure: 0=Not Assessed/NA 4=Minimal Assistance 1=Total Assistance 5=Supervision or Setup 2=Maximal Assistance 6=Modified [place] 3=Moderate Assistance 7=Complete [place] ADL-Treatment Pt able to open loosened bottles and containers. Pt able to complete all other set up for eating. Min A supine to EOB with HOB raised. Ambulated to bathroom using FWW, CGA. Transferred to toilet using FWW and grabbars requiring verbal cues to position self for safe sitting,x2. Assist to manipulate clothing. Transferred into shower with min A and verbal cues using FWW, grabbars and shower chair. Completed shower with CGA while standing to cleanse buttocks/ lauri area. Mod A using AE for lower body dressing and hiking pants over hips. CGA to get shirt unstuck then pt able to complete donning/doffing shirt. Mod I for grooming. Pt takes increased time to complete all tasks due to decreased activity tolerance and slower movements. Pt sitting in recliner at end of therapy. Call light/phone in reach. All needs met in room. Therapy Code Descriptions/Definitions Functional [place] Measure: 0=Not Assessed/NA 4=Minimal Assistance 1=Total Assistance 5=Supervision or Setup 2=Maximal Assistance 6=Modified [place] 3=Moderate Assistance 7=Complete [place] Therapy Quality Codes: 6 Independent with activity with or without an assistive device 5 Patient requires set up or clean up by helper. Patient completes activity by themselves 4 Supervision or touching assist (CGA). [place] provide cues , steadying assist 3 The helper provides less than half the effort to complete the activity 2 The helper provides more than half the effort to complete the activity 1 Dependent. The helper does all the effort to complete an activity 7 Patient refused to complete or attempt activity 9 The patient did not perform the activity before the current illness or injury 88 Not attempted due to Medical conditions or safety concerns Eating (FIM): 5 Eating (QC): 5 Grooming (FIM): 6 Oral Hygiene (QC): 6 Bathing (FIM): 4 Bathing Location: L Arm, R Arm, L Upper Leg, R Upper Leg, L Lower Leg ( including foot), R Lower Leg (including foot), Chest, Abdomen, Buttocks, Perineal Area Shower/Bathe Self (QC): 4 (CGA) Upper Body (FIM): 4 Upper Body Dressing (QC): 3 Lower Body Dressing (FIM): 3 Lower Body Dressing (QC): 2 On/Off Footwear (QC): 2 Toileting (FIM): 4 Toileting Hygiene (QC): 3 Toilet/Commode Transfer (FIM): 4 Toilet Transfer (QC): 4 Shower Transfer(FIM): 4 OT Short Term Goals Short Term Goals Time Frame: Oct 17, 2018 Eating(FIM): 3 Grooming(FIM): 3 Bathing(FIM): 3 Upper Body Dressing(FIM): 4 Lower Body Dressing(FIM): 3 Toileting(FIM): 3 Transfers (B,C,W/C) (FIM): 4 Toilet/Commode Transfer(FIM): 4 Shower Transfer(FIM): 4 Additional Short Term Goals: 1-Demonstrate ADL Tasks, 2-Verbalize Understanding , 3-ImproveStrength/Shiv 1=Demonstrate adherence to instructed precautions during ADL tasks. 2=Patient will verbalize/demonstrate understanding of assistive devices/ modifications for ADL. 3=Patient will improve strength/tolerance for activity to enable patient to perform ADL's. OT Copper Roller Handler Printing Goals Copper Roller Handler Printing Goals Time Frame: Oct 31, 2018 Eating (FIM): 6 Eating (QC): 6 Groomin Oral Hygiene (QC): 5 Bathing(FIM): 5 Shower/Bathe Self (QC): 4 Upper Body Dressing(FIM): 5 Upper Body Dressing (QC): 5 Lower Body Dressing(FIM): 5 Lower Body Dressing (QC): 4 On/Off Footwear (QC): 4 Toileting(FIM): 6 Toileting Hygiene (QC): 6 Transfers (B,C,W/C) (FIM): 6 Toilet/Commode Transfer(FIM): 6 Toilet/Commode Transfer (QC): 6 Shower Transfer(FIM): 5 Additional Goals: 1-Demonstrate ADL Tasks, 2-Verbalize Understanding, 3- ImproveStrength/Shiv 1=Demonstrate adherence to instructed precautions during ADL tasks. 2=Patient will verbalize/demonstrate understanding of assistive devices/ modifications for ADL. 3=Patient will improve strength/tolerance for activity to enable patient to perform ADL's. OT Education/Plan Discharge Recommendations Plan/Recommendations: Continue POC Treatment Plan/Plan of Care Patient would benefit from OT for education, treatment and training to promote independence in ADL's, mobility, safety and/or upper extremity function for ADL' s. Plan of Care: ADL Retraining, Caregiver Training, Cognitive Retraining, Functional Mobility, Group Exercise/Act as Ind, UE Funct Exercise/Act Treatment Duration: Oct 31, 2018 Frequency: At least 5 of 7 days/Wk (IRF) Estimated Hrs Per Day: 1.5 hours per day Agreement: Yes Rehab Potential: Good Time/GCodes Start Time: 06:30 Stop Time: 08:00 Total Time Billed (hr/min): 90 Billed Treatment Time 1 visit-ADL 6 (90 min) JORGE TERRY Oct 29, 2018 07:05
--- NOTE | 2018-10-29 08:09 | PM&R Progress Note ---
Subjective This was a face to face visit with the patient. Date Seen by Provider: Oct 29, 2018 Time Seen by Provider: 07:50 Subjective/Events-last exam Patient was seen in her room this AM Patient min assist for transfers Patient to have day pass tomorrow with family.Discharge set for next week 11/02/18 Review of Systems Neurological: Weakness Objective Physician Exam Last Set of Vital Signs Vital Signs Date Time Temp Pulse Resp B/P (MAP) Pulse Ox O2 Delivery O2 Flow Rate FiO2 10/29/18 05:21 96.9 65 18 183/83 (116) 95 Room Air Capillary Refill : I&O Intake and Output 10/29/18 00:00 Intake Total 1620 ml Balance 1620 ml Intake Oral 1620 ml # Voids 7 # Bowel Movements 1 General: Alert, Oriented X3, Cooperative, No Acute Distress HEENT: Atraumatic, PERRLA, EOMI, Mucous Memb Moist/[place], Other (dysphagia) Neck: Supple, No JVD Lungs: Clear to Auscultation Heart: Regular Rate Abdomen: Normal Bowel Sounds, Soft, No Tenderness Extremities: No Edema Skin: No Rashes, No Breakdown, Other ([place] just d/cd for TOV) Neuro: Other (Strength 2 to 2+/5 Ble except Rt dorsiflexion 1/5 Weakness in both upper limbs as well) Results Lab Data Laboratory Tests 10/26/18 11:05: Glucometer 191H 10/26/18 15:50: Glucometer 135H 10/26/18 20:33: Glucometer 234H 10/27/18 05:44: Glucometer 105 10/27/18 11:11: Glucometer 163H 10/27/18 15:52: Glucometer 190H 10/27/18 20:32: Glucometer 254H 10/28/18 05:27: Glucometer 119H 10/28/18 11:06: Glucometer 228H 10/28/18 15:30: Glucometer 181H 10/28/18 20:03: Glucometer 259H 10/29/18 05:16: Glucometer 119H Microbiology 10/04/18 C. difficile GDH Antigen & Toxins - Final, Complete 10/23/18 Urine Culture - Final, Complete Enterococcus faecalis Assessment/Plan Assessment and Plan MS exacerbation s/p course of steroids improving Dysphagia improving Urinary retention improved HTN controlled DM with hypoglycemia improved HLP Insomnia improved with meds Plan Continue PT/OT Day Pass(TLO[facility])tomorrow Discharge set for 1-2-19 Co-Morbidities that are continuing to impact the rehab process: (include details ) SHARA MITCHELL MD Oct 29, 2018 08:09
[2018-10-29] MEDS: cloNIDine 0.1 MG (CATAPRES) TAB PO SCH ×3 (08:56→21:06)
[2018-10-29] MEDS: meTOprolol TARTRATE 50 MG (LOPRESSOR) TAB PO SCH ×2 (08:56→21:06)
[2018-10-29] MEDS: FLUTICASONE NASAL SPRAY (FLONASE) 16 GM BTL NS SCH (08:56)
[2018-10-29] MEDS: VITAMIN D3 1,000 UNITS (CHOLECALCIFEROL) TABLET PO SCH (08:56)
[2018-10-29] MEDS: METANX PO SCH ×2 (08:57→21:05)
[2018-10-29] MEDS: amLODIPine 5 MG (NORVASC) TAB PO SCH (08:57)
--- NOTE | 2018-10-29 10:51 | Physical Therapy Daily Note ---
PT Daily Note-Current Subjective States that she is doing okay today. Pain Numeric Pain Scale: 0-No Pain Transfers Therapy Code Descriptions/Definitions Functional [place] Measure: 0=Not Assessed/NA 4=Minimal Assistance 1=Total Assistance 5=Supervision or Setup 2=Maximal Assistance 6=Modified [place] 3=Moderate Assistance 7=Complete [place] Therapy Quality Codes: 6 Independent with activity with or without an assistive device 5 Patient requires set up or clean up by helper. Patient completes activity by themselves 4 Supervision or touching assist (CGA). [place] provide cues , steadying assist 3 The helper provides less than half the effort to complete the activity 2 The helper provides more than half the effort to complete the activity 1 Dependent. The helper does all the effort to complete an activity 7 Patient refused to complete or attempt activity 9 The patient did not perform the activity before the current illness or injury 88 Not attempted due to Medical conditions or safety concerns Transfers (B, C, W/C) (FIM): 4 Scootin Rollin Supine to/from Sit: 4 Sit to/from Stand: 5 Weight Bearing Right Lower Extremity: Right Full Weight Bearing Left Lower Extremity: Left Full Weight Bearing Gait Training Gait (FIM): 1 Distance (FIM): 1=up to 49 ft Distance: 50' x 2 Gait Level of Assist: 5 Gait Persons Needed: 1 Gait Assistive Device: FWW Exercises Supine Ex: LE Protocol Seated Therapy Exercises: LE Protocol Standin way Ex=Flex, Abd, Ext NuStep Minutes: 10 NuStep Workload: 1 Assessment Current Status: Excellent Progress Patient has small step lengths. PT Short Term Goals Short Term Goals Time Frame: Oct 17, 2018 Transfers (B,C,W/C) (FIM): 4 Gait (FIM): 2 (met) Distance (FIM): 7=459-13 ft Gait Distance Comment: 50 ft Gait Level of Assist: 4 Gait Assistive Device: FWW Wheelchair Distance: 0 feet Stairs (FIM): 2 # of Steps: 1 PT Spinning Frame Changer Goals Spinning Frame Changer Goals PT Usp Goals Time Frame: Oct 31, 2018 Transfers (B,C,W/C) (FIM): 6 Sit to Lying (QC): 6 Lying-Sitting on Side/Bed(QC): 6 Sit to Stand (QC): 6 Rollin Roll Left to Right (QC): 6 Chair/Gdk-qb-Orktn Xfer(QC): 6 Car Transfer (QC): 5 Does the Patient Walk: No and Walking Goal IS indicated Gait (FIM): 6 Gait distance (FIM): 3=150 ft Walk 10 feet (QC): 6 Walk 10ft-Uneven Surface(QC): 5 Walk 50ft with 2 Turns (QC): 6 Walk 150 ft (QC): 6 Gait Level of Assist: 6 Gait Assistive Device: FWW Does the Pt use WC or Scooter?: Yes Wheelchair (FIM): 6 Wheelchair distance (FIM): 3=150 ft Wheel 50 feet with 2 turns (QC: 6 Stairs (FIM): 5 # of Steps: 4 1 Step (curb) (QC): 6 4 Steps (QC): 6 12 Steps (QC): 88 Picking up an Object (QC): 4 PT Plan Treatment/Plan Treatment Plan: Continue Plan of Care Treatment Plan: Bed Mobility, Education, Functional Activity Shiv, Functional Strength, Group Therapy, Gait, Safety, Therapeutic Exercise, Transfers Treatment Duration: Oct 31, 2018 Frequency: At least 5 of 7 days/Wk (IRF) Estimated Hrs Per Day: 1.5 hours per day Patient and/or Family Agrees t: Yes Time/GCodes Time In: 800 Time Out: 900 Total Billed Treatment Time: 60 Total Billed Treatment 1, GT x 20', EX x 40' YOSEPH EUGENE PT Oct 29, 2018 10:51
--- NOTE | 2018-10-29 12:28 | Progress Note-Hospitalist ---
Subjective HPI/CC On Admission Date Seen by Provider: Oct 29, 2018 Time Seen by Provider: 11:30 Pt is a 67yoCF known to me from recent admission who was admitted to ARU following inpatient stay at [place] where she was diagnosed with MS. She has no complaints today other than how she looks. Discussed with RN who states that her BP has been much better today. I am consulted for medical management. Subjective/Events-last exam Patient doing well overall Flat affect remains Upset that she can't sleep at night since she is such a light sleeper Multiple somatic complaints No urinary changes Working hard to return back home Elevated blood pressure remains so we'll increase clonidine to 0.2 3 times a day from 0.1 3 times a day Review of Systems General: Fatigue Objective Exam Vital Signs Vital Signs Date Time Temp Pulse Resp B/P (MAP) Pulse Ox O2 Delivery O2 Flow Rate FiO2 10/29/18 09:00 Room Air 10/29/18 05:21 96.9 65 18 183/83 (116) 95 Capillary Refill : General Appearance: No Apparent Distress, WD/WN, Chronically ill, Thin Respiratory: Chest Non Tender, Lungs Clear, Normal Breath Sounds, No Accessory Muscle Use, No Respiratory Distress Cardiovascular: Regular Rate, Rhythm, No Edema, No Gallop, No JVD, No Murmur, Normal Peripheral Pulses Neurologic/Psychiatric: Alert, Oriented x3, No Motor/Sensory Deficits, Depressed Affect Results/Procedures Lab Patient resulted labs reviewed. Assessment/Plan Assessment and Plan Assess & Plan/Chief Complaint Assessment: Multiple sclerosis Acute dysuria urine culture negative from sterile and out catheter and placed on Pyridium empirically Status post urinary retention urology managing Atrial fibrillation history CVA in 2009 Diabetes mellitus Hypertension OOC Diabetic peripheral neuropathy Plan: Continue advancing diet Monitor urinary issues Supportive care Increase clonidine to 0.2 MG 3 times a day Diagnosis/Problems Diagnosis/Problems (1) Generalized weakness Status: Acute (2) Multiple sclerosis Status: Chronic (3) Hypertension Status: Chronic Qualifiers: Hypertension type: essential hypertension Qualified Codes: I10 - Essential (primary) hypertension (4) Insulin dependent diabetes mellitus Status: Chronic (5) Hyperlipidemia Status: Chronic Qualifiers: Hyperlipidemia type: mixed hyperlipidemia Qualified Codes: E78.2 - Mixed hyperlipidemia (6) History of stroke Status: Chronic (7) Dysuria Status: Acute Clinical Quality Measures DVT/VTE Risk/Contraindication: Risk Factor Score Per Nursin RFS Level Per Nursing on Admit: 4+=Very High FAIZA JOLLEY DO Oct 29, 2018 12:28
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
[2018-10-29] MEDS: [UNRECOGNIZED DRUG - OTHER] PO SCH (13:03)
[2018-10-29] MEDS: ASCORBIC ACID (VIT C) 500 MG TABLET PO SCH (13:04)
[2018-10-29] MEDS: LOSARTAN 50 MG (COZAAR) TAB PO SCH (13:04)
[2018-10-29 17:09] VITALS: BP 145/79
[2018-10-29] MEDS: glyBURIDE 5 MG (MICRONASE) TAB PO SCH (17:12)
[2018-10-29 21:03] VITALS: BP 150/80
[2018-10-29] MEDS: MELATONIN 3 MG TABLET PO SCH (21:05)
[2018-10-29] MEDS: ALPRAZolam 0.25 MG (XANAX) TAB PO PRN (21:06)
[2018-10-29] MEDS: ASPIRIN E.C. 81 MG (ECOTRIN) TAB PO SCH (21:06)
[2018-10-29] MEDS: inSUlin DETERMIR 1 UNIT/0.01 ML (LEVEMIR) CHARGE PER UNIT SQ SCH (21:07)
[2018-10-30 05:26] VITALS: BP 134/63
[2018-10-30] MEDS: inSUlin ASPART (NovoLOG) 1 UNIT/0.01 ML (CHARGE PER UNIT) SC SCH ×4 (05:27→21:07)
[2018-10-30] MEDS: KCL 10 MEQ TAB (MICRO K) PO SCH (06:10)
[2018-10-30] MEDS: LACTOBACILLUS ACIDOPHILUS (PROBIOTIC) CAPSULE PO SCH (06:10)
[2018-10-30] MEDS: MULTIVIT W/MINERALS TAB (THERAGRAN M) PO SCH (06:10)
[2018-10-30] MEDS: metFORMIN 500 MG (GLUCOPHAGE) TAB PO SCH (06:10)
[2018-10-30] MEDS: glyBURIDE 2.5 MG (MICRONASE) TAB PO SCH (06:10)
[2018-10-30 06:39] LABS: BASOPHILS % (AUTO) 0 % (0-10); EOSINOPHILS # (AUTO) 0.1 10^3/uL (0.0-0.3); EOSINOPHILS % (AUTO) 2 % (0-10); HEMATOCRIT 33 % (35-52); HEMOGLOBIN 10.3 G/DL (11.5-16.0); LYMPHOCYTES # (AUTO) 1.6 X 10^3 (1.0-4.0); LYMPHOCYTES % (AUTO) 33 % (12-44); MEAN CORPUSCULAR HEMOGLOBIN 27 PG (25-34); MEAN CORPUSCULAR HGB CONC 31 G/DL (32-36); MEAN CORPUSCULAR VOLUME 87 FL (80-99); MEAN PLATELET VOLUME 11.7 FL (7.4-10.4); MONOCYTES # (AUTO) 0.5 X 10^3 (0.0-1.0); MONOCYTES % (AUTO) 11 % (0-12); NEUTROPHILS # (AUTO) 2.5 X 10^3 (1.8-7.8); NEUTROPHILS % (AUTO) 54 % (42-75); PLATELET COUNT 288 10^3/uL (130-400); RED BLOOD COUNT 3.81 10^6/uL (4.35-5.85); RED CELL DISTRIBUTION WIDTH 14.9 % (10.0-14.5); WHITE BLOOD COUNT 4.7 10^3/uL (4.3-11.0)
[2018-10-30 07:13] LABS: ALBUMIN 3.8 GM/DL (3.2-4.5); BILIRUBIN,TOTAL 0.6 MG/DL (0.1-1.0); CALCIUM 9.5 MG/DL (8.5-10.1); CREATININE SERUM 1.61 MG/DL (0.60-1.30); POTASSIUM 4.1 MMOL/L (3.6-5.0); TOTAL PROTEIN 6.5 GM/DL (6.4-8.2)
[2018-10-30] MEDS: FLUTICASONE NASAL SPRAY (FLONASE) 16 GM BTL NS SCH (08:15)
[2018-10-30] MEDS: cloNIDine 0.1 MG (CATAPRES) TAB PO SCH ×3 (08:16→21:06)
[2018-10-30] MEDS: METANX PO SCH ×2 (08:16→21:06)
[2018-10-30] MEDS: VITAMIN D3 1,000 UNITS (CHOLECALCIFEROL) TABLET PO SCH (08:16)
[2018-10-30] MEDS: meTOprolol TARTRATE 50 MG (LOPRESSOR) TAB PO SCH ×2 (08:16→21:06)
[2018-10-30] MEDS: amLODIPine 5 MG (NORVASC) TAB PO SCH (08:16)
[2018-10-30] MEDS ORDERED: ALPRAZolam 0.25 MG (XANAX) TAB PO NR (09:30)
[2018-10-30] MEDS: LOSARTAN 50 MG (COZAAR) TAB PO SCH (10:45)
[2018-10-30] MEDS: ASCORBIC ACID (VIT C) 500 MG TABLET PO SCH (10:46)
--- NOTE | 2018-10-30 10:55 | NUR ---
Pt left with at this time for approved day pass. This RN assisted pt to car in wheelchair and helped pt transfer from wheelchair to car. Pt adriana well.
[2018-10-30] MEDS: [UNRECOGNIZED DRUG - OTHER] PO SCH (11:10)
--- NOTE | 2018-10-30 16:15 | NUR ---
Pt returned to hospital at this time. This RN assisted pt from car to wheelchair and pt adriana well. Pt to room via wheelchair, transferred to toilet and then pt transferred to chair. Pt stated she had a good day and was only a little tired. stated that they realized that they do need a toilet riser and a shower chair. This RN stated that I would make a note, and then encouraged to talk to the secondary social studies teacher tomorrow to see if she could possible help with getting these items for the pt upon discharge.
[2018-10-30 17:25] VITALS: BP 165/88
[2018-10-30] MEDS: glyBURIDE 5 MG (MICRONASE) TAB PO SCH (18:43)
[2018-10-30 20:58] VITALS: BP 179/81
[2018-10-30] MEDS: MELATONIN 3 MG TABLET PO SCH (21:06)
[2018-10-30] MEDS: ALPRAZolam 0.25 MG (XANAX) TAB PO PRN (21:06)
[2018-10-30] MEDS: ASPIRIN E.C. 81 MG (ECOTRIN) TAB PO SCH (21:06)
[2018-10-30] MEDS: inSUlin DETERMIR 1 UNIT/0.01 ML (LEVEMIR) CHARGE PER UNIT SQ SCH (21:06)
[2018-10-31 05:10] VITALS: BP 177/79
[2018-10-31] MEDS: inSUlin ASPART (NovoLOG) 1 UNIT/0.01 ML (CHARGE PER UNIT) SC SCH ×4 (05:14→22:07)
[2018-10-31] MEDS: KCL 10 MEQ TAB (MICRO K) PO SCH (06:08)
[2018-10-31] MEDS: glyBURIDE 2.5 MG (MICRONASE) TAB PO SCH (06:08)
[2018-10-31] MEDS: MULTIVIT W/MINERALS TAB (THERAGRAN M) PO SCH (06:08)
[2018-10-31] MEDS: LACTOBACILLUS ACIDOPHILUS (PROBIOTIC) CAPSULE PO SCH (06:08)
--- NOTE | 2018-10-31 07:57 | PM&R Progress Note ---
Subjective This was a face to face visit with the patient. Date Seen by Provider: Oct 31, 2018 Time Seen by Provider: 07:30 Subjective/Events-last exam Patient was seen in her room this AM Patient Min assist for transfers Patient indicates that Day pass with spouse went well yesterday Current meds reviewed CBC and Accuchecks noted as well as BUN/CR Objective Physician Exam Last Set of Vital Signs Vital Signs Date Time Temp Pulse Resp B/P (MAP) Pulse Ox O2 Delivery O2 Flow Rate FiO2 10/31/18 05:10 98.0 74 18 177/79 (111) 99 Room Air Capillary Refill : I&O Intake and Output 10/31/18 00:00 Intake Total 1205 ml Balance 1205 ml Intake Oral 1205 ml # Voids 9 General: Alert, Oriented X3, Cooperative, No Acute Distress HEENT: Atraumatic, PERRLA, EOMI, Mucous Memb Moist/[place], Other (dysphagia) Neck: Supple, No JVD Lungs: Clear to Auscultation Heart: Regular Rate Abdomen: Normal Bowel Sounds, Soft, No Tenderness Extremities: No Edema Skin: No Rashes, No Breakdown, Other (Yamileth christianson d/cd for TOV) Neuro: Other (Strength 2 to 2+/5 Ble except Rt dorsiflexion 1/5 Weakness in both upper limbs as well) Results Lab Data Laboratory Tests 10/28/18 11:06: Glucometer 228H 10/28/18 15:30: Glucometer 181H 10/28/18 20:03: Glucometer 259H 10/29/18 05:16: Glucometer 119H 10/29/18 11:20: Glucometer 161H 10/29/18 16:07: Glucometer 172H 10/29/18 20:41: Glucometer 217H 10/30/18 05:15: Glucometer 120H 10/30/18 05:30: White Blood Count 4.7, Red Blood Count 3.81L, Hemoglobin 10.3L, Hematocrit 33L, Mean Corpuscular Volume 87, Mean Corpuscular Hemoglobin 27, Mean Corpuscular Hemoglobin Concent 31L, Red Cell Distribution Width 14.9H, Platelet Count 288, Mean Platelet Volume 11.7H, Neutrophils (%) (Auto) 54, Lymphocytes (%) (Auto) 33 , Monocytes (%) (Auto) 11, Eosinophils (%) (Auto) 2, Basophils (%) (Auto) 0, Neutrophils # (Auto) 2.5, Lymphocytes # (Auto) 1.6, Monocytes # (Auto) 0.5, Eosinophils # (Auto) 0.1, Basophils # (Auto) 0.0, Sodium Level 140, Potassium Level 4.1, Chloride Level 103, Carbon Dioxide Level 23, Anion Gap 14, Blood Urea Nitrogen 33H, Creatinine 1.61H, Estimat Glomerular Filtration Rate 32, BUN/ Creatinine Ratio 20, Glucose Level 127H, Calcium Level 9.5, Corrected Calcium 9.7, Total Bilirubin 0.6, Aspartate Amino Transf (AST/SGOT) 29, Alanine Aminotransferase (ALT/SGPT) 40, Alkaline Phosphatase 70, Total Protein 6.5, Albumin 3.8 10/30/18 16:35: Glucometer 165H 10/30/18 21:04: Glucometer 187H 10/31/18 04:22: Glucometer 127H Microbiology 10/04/18 C. difficile GDH Antigen & Toxins - Final, Complete 10/23/18 Urine Culture - Final, Complete Enterococcus faecalis Assessment/Plan Assessment and Plan MS exacerbation s/p course of steroids improving Dysphagia improving Urinary retention improved HTN controlled with elevated BUN/CR DM with Hypoglycemia improved HLP Insomnia improved with meds Plan Continue PT/OT/ST Discharge set tentatively for 11/02/18 to home with spouse Last day here for fl Hospitalist service to assume care as per Administrators request Co-Morbidities that are continuing to impact the rehab process: (include details ) SHARA MITCHELL MD Oct 31, 2018 07:57
[2018-10-31] MEDS: METANX PO SCH ×2 (08:05→21:20)
[2018-10-31] MEDS: amLODIPine 5 MG (NORVASC) TAB PO SCH (08:05)
[2018-10-31] MEDS: cloNIDine 0.1 MG (CATAPRES) TAB PO SCH ×3 (08:05→21:20)
[2018-10-31] MEDS: meTOprolol TARTRATE 50 MG (LOPRESSOR) TAB PO SCH ×2 (08:05→21:20)
[2018-10-31] MEDS: VITAMIN D3 1,000 UNITS (CHOLECALCIFEROL) TABLET PO SCH (08:05)
[2018-10-31] MEDS: FLUTICASONE NASAL SPRAY (FLONASE) 16 GM BTL NS SCH (08:06)
[2018-10-31 08:25] LABS: CALCIUM 9.6 MG/DL (8.5-10.1); CREATININE SERUM 1.32 MG/DL (0.60-1.30)
--- NOTE | 2018-10-31 08:59 | Physical Therapy Daily Note ---
PT Daily Note-Current Subjective Patient in bed pre tx, agrees to PT, states she has some minor pain in left arm due to bed mobility training. Appearance Patient in recliner post tx with nurse call, phone, tray, all needs met. Mental Status Patient Orientation: Person, Place, Situation Transfers Therapy Code Descriptions/Definitions Functional [place] Measure: 0=Not Assessed/NA 4=Minimal Assistance 1=Total Assistance 5=Supervision or Setup 2=Maximal Assistance 6=Modified [place] 3=Moderate Assistance 7=Complete [place] Therapy Quality Codes: 6 Independent with activity with or without an assistive device 5 Patient requires set up or clean up by helper. Patient completes activity by themselves 4 Supervision or touching assist (CGA). Marlin provide cues , steadying assist 3 The helper provides less than half the effort to complete the activity 2 The helper provides more than half the effort to complete the activity 1 Dependent. The helper does all the effort to complete an activity 7 Patient refused to complete or attempt activity 9 The patient did not perform the activity before the current illness or injury 88 Not attempted due to Medical conditions or safety concerns Transfers (B, C, W/C) (FIM): 3 Scootin Rollin Supine to/from Sit: 3 Sit to/from Stand: 4 Bed to/from Chair: 4 Patient has improved with bed mobility but still needs mod assist for supine to sit, min assist for sit to supine, CGA for sit to stand and transfers. Needs cues for hand placement almost every time she sits. Weight Bearing Right Lower Extremity: Right Full Weight Bearing Left Lower Extremity: Left Full Weight Bearing Gait Training Gait (FIM): 4 Distance: 150', 100' Gait Level of Assist: 4 Gait Persons Needed: 1 Gait Assistive Device: FWW Patient needs min assist to guide walker around corner and when she gets fatigued. Patient ambulates very slowly, sometimes a festinating gait. Exercises Supine Ex: Bridging (2 sets of 10), Hip abd/add (with pillow and RTB) Supine Reps: 20 LAQ alternating for 5 min NuStep Minutes: 15 NuStep Workload: 4 Treatments bed mobility and transfers, ambulation, functional strengthening Assessment Current Status: Fair Progress improved bed mobility, needs min assist during supine to sit to get trunk up far enough to get her elbow underneath her and she can do the rest from there. PT Short Term Goals Short Term Goals Time Frame: Oct 17, 2018 Transfers (B,C,W/C) (FIM): 4 Gait (FIM): 2 (met) Distance (FIM): 2=277-45 ft Gait Distance Comment: 50 ft Gait Level of Assist: 4 Gait Assistive Device: FWW Wheelchair Distance: 0 feet Stairs (FIM): 2 # of Steps: 1 PT Gravity Meter Operator Goals Assisted Goals PT Gravity Meter Operator Goals Time Frame: Oct 31, 2018 Transfers (B,C,W/C) (FIM): 6 Sit to Lying (QC): 6 Lying-Sitting on Side/Bed(QC): 6 Sit to Stand (QC): 6 Rollin Roll Left to Right (QC): 6 Chair/Gdt-mp-Iztux Xfer(QC): 6 Car Transfer (QC): 5 Does the Patient Walk: No and Walking Goal IS indicated Gait (FIM): 6 Gait distance (FIM): 3=150 ft Walk 10 feet (QC): 6 Walk 10ft-Uneven Surface(QC): 5 Walk 50ft with 2 Turns (QC): 6 Walk 150 ft (QC): 6 Gait Level of Assist: 6 Gait Assistive Device: FWW Does the Pt use WC or Scooter?: Yes Wheelchair (FIM): 6 Wheelchair distance (FIM): 3=150 ft Wheel 50 feet with 2 turns (QC: 6 Stairs (FIM): 5 # of Steps: 4 1 Step (curb) (QC): 6 4 Steps (QC): 6 12 Steps (QC): 88 Picking up an Object (QC): 4 PT Plan Problem List Problem List: Activity Tolerance, Functional Strength, Safety, Balance, Gait, Transfer, Bed Mobility, ROM Treatment/Plan Treatment Plan: Continue Plan of Care Treatment Plan: Bed Mobility, Education, Functional Activity Shiv, Functional Strength, Group Therapy, Gait, Safety, Therapeutic Exercise, Transfers Treatment Duration: Oct 31, 2018 Frequency: At least 5 of 7 days/Wk (IRF) Estimated Hrs Per Day: 1.5 hours per day Patient and/or Family Agrees t: Yes Safety Risks/Education Patient Education: Gait Training, Transfer Techniques, Correct Positioning, Safety Issues Teaching Recipient: Patient Teaching Methods: Demonstration, Discussion Response to Teaching: Reinforcement Needed Time/GCodes Time In: 0800 Time Out: 0900 Total Billed Treatment Time: 60 Total Billed Treatment 1 visit EX 25' GT 20' FA 15' PEBBLES BERRY PT Oct 31, 2018 08:59
--- NOTE | 2018-10-31 10:03 | Physical Therapy Daily Note ---
PT Daily Note-Current Subjective Patient in recliner pre tx, agrees to PT, has 5/10 pain in left hip. Appearance Patient in recliner post tx with nurse call, phone, tray, all needs met. Mental Status Patient Orientation: Normal For Age Transfers Therapy Code Descriptions/Definitions Functional [place] Measure: 0=Not Assessed/NA 4=Minimal Assistance 1=Total Assistance 5=Supervision or Setup 2=Maximal Assistance 6=Modified [place] 3=Moderate Assistance 7=Complete [place] Therapy Quality Codes: 6 Independent with activity with or without an assistive device 5 Patient requires set up or clean up by helper. Patient completes activity by themselves 4 Supervision or touching assist (CGA). Manito provide cues , steadying assist 3 The helper provides less than half the effort to complete the activity 2 The helper provides more than half the effort to complete the activity 1 Dependent. The helper does all the effort to complete an activity 7 Patient refused to complete or attempt activity 9 The patient did not perform the activity before the current illness or injury 88 Not attempted due to Medical conditions or safety concerns Transfers (B, C, W/C) (FIM): 4 Scootin Rollin Supine to/from Sit: 4 Sit to/from Stand: 6 Bed to/from Chair: 6 Patient needs min assist during supine to sit to get one leg into bed. Weight Bearing Right Lower Extremity: Right Full Weight Bearing Left Lower Extremity: Left Full Weight Bearing Gait Training Gait (FIM): 6 Distance: 150', 120' Gait Level of Assist: 6 Gait Assistive Device: FWW Exercises Supine Ex: Ankle pumps, Quad Set, Glut sets, Heel Slides, Hip abd/add Supine Reps: 15 LAQ alternating for 5 min Treatments bed mobility and transfers, ambulation, functional strengthening Assessment Current Status: Fair Progress patient needs min assist to get one leg into bed during supine to sit, either side PT Short Term Goals Short Term Goals Time Frame: Oct 17, 2018 Transfers (B,C,W/C) (FIM): 4 Gait (FIM): 2 (met) Distance (FIM): 3=526-36 ft Gait Distance Comment: 50 ft Gait Level of Assist: 4 Gait Assistive Device: FWW Wheelchair Distance: 0 feet Stairs (FIM): 2 # of Steps: 1 PT Stud Sheep Farmer Goals Stud Sheep Farmer Goals PT Stud Sheep Farmer Goals Time Frame: Oct 31, 2018 Transfers (B,C,W/C) (FIM): 6 Sit to Lying (QC): 6 Lying-Sitting on Side/Bed(QC): 6 Sit to Stand (QC): 6 Rollin Roll Left to Right (QC): 6 Chair/Ukn-hp-Xqtjz Xfer(QC): 6 Car Transfer (QC): 5 Does the Patient Walk: No and Walking Goal IS indicated Gait (FIM): 6 Gait distance (FIM): 3=150 ft Walk 10 feet (QC): 6 Walk 10ft-Uneven Surface(QC): 5 Walk 50ft with 2 Turns (QC): 6 Walk 150 ft (QC): 6 Gait Level of Assist: 6 Gait Assistive Device: FWW Does the Pt use WC or Scooter?: Yes Wheelchair (FIM): 6 Wheelchair distance (FIM): 3=150 ft Wheel 50 feet with 2 turns (QC: 6 Stairs (FIM): 5 # of Steps: 4 1 Step (curb) (QC): 6 4 Steps (QC): 6 12 Steps (QC): 88 Picking up an Object (QC): 4 PT Plan Problem List Problem List: Activity Tolerance, Functional Strength, Safety, Balance, Gait, Transfer, Bed Mobility, ROM Treatment/Plan Treatment Plan: Continue Plan of Care Treatment Plan: Bed Mobility, Education, Functional Activity Shiv, Functional Strength, Group Therapy, Gait, Safety, Therapeutic Exercise, Transfers Treatment Duration: Oct 31, 2018 Frequency: At least 5 of 7 days/Wk (IRF) Estimated Hrs Per Day: 1.5 hours per day Patient and/or Family Agrees t: Yes Safety Risks/Education Patient Education: Gait Training, Transfer Techniques, Correct Positioning, Safety Issues Teaching Recipient: Patient Teaching Methods: Demonstration, Discussion Response to Teaching: Reinforcement Needed Time/GCodes Time In: 0920 Time Out: 1000 Total Billed Treatment Time: 40 Total Billed Treatment 1 visit GT 25' EX 15' PEBBLES BERRY PT Oct 31, 2018 10:03
--- NOTE | 2018-10-31 10:40 | Speech Therapy Daily Note ---
Speech Daily Progress Note Subjective Date Seen by Provider: Oct 31, 2018 Time Seen by Provider: 00:30 Patient was up in her recliner. She recalled how her day home went yesterday. Objective Patient completed memory tasks related to herself and her home experience with 80% accuracy given minimal cuing. Assessment Assessment Current Status: Good Progress Communication Comprehension: 4 Expression: 4 Social Cognition Social Interaction: 3 Problem Solvin Memory: 3 Speech Short Term Goals Short Term Goals Short Term Goals 1) Patient will use appropriate linguistic forms to communicate in everyday situations, with 90% or greater accuracy. 2) Patient will identify functions of common items, with 90% or greater accuracy. 3) Patient will express her wants/needs effectively with 90% accuracy. Speech Block Cleaner Goals Block Cleaner Goals Patient will be able to effectively communicate within her immediate living environment at 90%. Speech-Plan Patient/Family Goals Patient/Family Goals: Patient will be returning home with her on 11/02/2018. Treatment Plan Speech Therapy Treatment Plan: Continue Plan of Care Patient has progressed well with skilled ST services. Treatment Duration: Oct 31, 2018 Frequency: 5 times per week Estimated Hrs Per Day: .5 hour per day Rehab Potential: Good Barriers to Learning: Patient is weak at times. Pt/Family Agrees to Plan: Yes Safety Risks/Education Teaching Recipient: Patient Teaching Methods: Discussion Response to Teaching: Verbalize Understanding Education Topics Provided: Safety within her home when she returns. Time Speech Therapy Time In: 09:00 Speech Therapy Time Out: 09:30 Total Billed Time: 30 Billed Treatment Time 1, HAILE Giordano Oct 31, 2018 10:40
[2018-10-31] MEDS: ASCORBIC ACID (VIT C) 500 MG TABLET PO SCH (11:04)
[2018-10-31] MEDS: [UNRECOGNIZED DRUG - OTHER] PO SCH (11:04)
--- NOTE | 2018-10-31 12:39 | Occupational Ther Daily Note ---
OT Current Status-Daily Note Subjective Pt alert, sitting in recliner. Pt agree to therapy. No c/o pain at this time. Mental Status/Objective Patient Orientation: Person, Place, Time, Situation Therapy Code Descriptions/Definitions Functional [place] Measure: 0=Not Assessed/NA 4=Minimal Assistance 1=Total Assistance 5=Supervision or Setup 2=Maximal Assistance 6=Modified [place] 3=Moderate Assistance 7=Complete [place] ADL-Treatment Therapy Code Descriptions/Definitions Functional [place] Measure: 0=Not Assessed/NA 4=Minimal Assistance 1=Total Assistance 5=Supervision or Setup 2=Maximal Assistance 6=Modified [place] 3=Moderate Assistance 7=Complete [place] Therapy Quality Codes: 6 Independent with activity with or without an assistive device 5 Patient requires set up or clean up by helper. Patient completes activity by themselves 4 Supervision or touching assist (CGA). [place] provide cues , steadying assist 3 The helper provides less than half the effort to complete the activity 2 The helper provides more than half the effort to complete the activity 1 Dependent. The helper does all the effort to complete an activity 7 Patient refused to complete or attempt activity 9 The patient did not perform the activity before the current illness or injury 88 Not attempted due to Medical conditions or safety concerns Eating (FIM): 5 (Set up. Uses regular utensils to eat.) Eating (QC): 5 Grooming (FIM): 6 (Sitting at sink, pt able to complete by self.) Oral Hygiene (QC): 6 Bathing (FIM): 4 (CGA in standing while pt cleanses buttocks. Using shower chair, grabbars and hand held shower. Assist to squeeze shampoo/conditioner. Uses bench to prop feet while washing.) Bathing Location: L Arm, R Arm, L Upper Leg, R Upper Leg, L Lower Leg ( including foot), R Lower Leg (including foot), Chest, Abdomen, Buttocks, Perineal Area Shower/Bathe Self (QC): 4 Upper Body (FIM): 4 (Pt able to doff/don shirt with assist to pull down in back. Reminders to thread shirt above elbows prior to placing over head.) Upper Body Dressing (QC): 4 Lower Body Dressing (FIM): 3 (Assist to thread feet into briefs then pt pulls up legs. Pt hikes pants most of the way then assist to complete hiking over buttocks. Manipulating material as pt places feet into pants.) Lower Body Dressing (QC): 3 On/Off Footwear (QC): 2 Toileting (FIM): 4 (Using FWW, BSC and grabbars pt able to complete cleansing with CGA in standing. Assist to hike pants over buttocks.) Toileting Hygiene (QC): 3 Toilet/Commode Transfer (FIM): 4 (Min A and verbal cues to position self in front of toilet.) Toilet Transfer (QC): 3 Shower Transfer(FIM): 4 (Verbal cues using FWW, shower chair and grabbars.) After therapy, pt lying in bed with call light/phone in reach. setting pt up with lunch. All needs met in room. OT Short Term Goals Short Term Goals Time Frame: Oct 17, 2018 Eating(FIM): 3 Grooming(FIM): 3 Bathing(FIM): 3 Upper Body Dressing(FIM): 4 Lower Body Dressing(FIM): 3 Toileting(FIM): 3 Transfers (B,C,W/C) (FIM): 4 Toilet/Commode Transfer(FIM): 4 Shower Transfer(FIM): 4 Additional Short Term Goals: 1-Demonstrate ADL Tasks, 2-Verbalize Understanding , 3-ImproveStrength/Shiv 1=Demonstrate adherence to instructed precautions during ADL tasks. 2=Patient will verbalize/demonstrate understanding of assistive devices/ modifications for ADL. 3=Patient will improve strength/tolerance for activity to enable patient to perform ADL's. OT Clinical Research Analyst Goals Chcf Goals Time Frame: Oct 31, 2018 Eating (FIM): 6 Eating (QC): 6 Groomin Oral Hygiene (QC): 5 Bathing(FIM): 5 Shower/Bathe Self (QC): 4 Upper Body Dressing(FIM): 5 Upper Body Dressing (QC): 5 Lower Body Dressing(FIM): 5 Lower Body Dressing (QC): 4 On/Off Footwear (QC): 4 Toileting(FIM): 6 Toileting Hygiene (QC): 6 Transfers (B,C,W/C) (FIM): 6 Toilet/Commode Transfer(FIM): 6 Toilet/Commode Transfer (QC): 6 Shower Transfer(FIM): 5 Additional Goals: 1-Demonstrate ADL Tasks, 2-Verbalize Understanding, 3- ImproveStrength/Shiv 1=Demonstrate adherence to instructed precautions during ADL tasks. 2=Patient will verbalize/demonstrate understanding of assistive devices/ modifications for ADL. 3=Patient will improve strength/tolerance for activity to enable patient to perform ADL's. OT Education/Plan Discharge Recommendations Plan/Recommendations: Continue POC Treatment Plan/Plan of Care Patient would benefit from OT for education, treatment and training to promote independence in ADL's, mobility, safety and/or upper extremity function for ADL' s. Plan of Care: ADL Retraining, Caregiver Training, Cognitive Retraining, Functional Mobility, Group Exercise/Act as Ind, UE Funct Exercise/Act Treatment Duration: Oct 31, 2018 Frequency: At least 5 of 7 days/Wk (IRF) Estimated Hrs Per Day: 1.5 hours per day Agreement: Yes Rehab Potential: Good Time/GCodes Start Time: 11:00 Stop Time: 12:00 Total Time Billed (hr/min): 60 Billed Treatment Time 1 visit-ADL 4 (60 min) JORGE TERRY Oct 31, 2018 12:39
--- NOTE | 2018-10-31 13:15 | Progress Note-Hospitalist ---
Subjective HPI/CC On Admission Date Seen by Provider: Oct 31, 2018 Time Seen by Provider: 13:00 Pt is a 67yoCF known to me from recent admission who was admitted to ARU following inpatient stay at [facility] where she was diagnosed with MS. She has no complaints today other than how she looks. Discussed with RN who states that her BP has been much better today. I am consulted for medical management. Subjective/Events-last exam Patient doing much better Set for discharge on 11/02/18 Creatinine improved from 1.6-1.3 Holding losartan and metformin Will monitor closely Flat affect continues Objective Exam Vital Signs Vital Signs Date Time Temp Pulse Resp B/P (MAP) Pulse Ox O2 Delivery O2 Flow Rate FiO2 10/31/18 14:05 71 136/78 (97) 10/31/18 08:00 Room Air 10/31/18 05:10 98.0 18 99 Capillary Refill : General Appearance: No Apparent Distress, WD/WN, Chronically ill Respiratory: Chest Non Tender, Lungs Clear, Normal Breath Sounds, No Accessory Muscle Use, No Respiratory Distress Cardiovascular: Regular Rate, Rhythm, No Edema, No Gallop, No JVD, No Murmur, Normal Peripheral Pulses Neurologic/Psychiatric: Alert, Oriented x3, No Motor/Sensory Deficits, Normal Mood/Affect Results/Procedures Lab Laboratory Tests 10/31/18 07:53 Patient resulted labs reviewed. Assessment/Plan Assessment and Plan Assess & Plan/Chief Complaint Assessment: Multiple sclerosis Status post urinary retention urology appreciated Atrial fibrillation history CVA in 2009 Diabetes mellitus Hypertension OOC Diabetic peripheral neuropathy CRI Plan: Continue advancing diet Monitor urinary issues Supportive care Increase clonidine to 0.2 MG 3 times a day Improved creatinine Diagnosis/Problems Diagnosis/Problems (1) Generalized weakness Status: Acute (2) Multiple sclerosis Status: Chronic (3) Hypertension Status: Chronic Qualifiers: Hypertension type: essential hypertension Qualified Codes: I10 - Essential (primary) hypertension (4) Insulin dependent diabetes mellitus Status: Chronic (5) Hyperlipidemia Status: Chronic Qualifiers: Hyperlipidemia type: mixed hyperlipidemia Qualified Codes: E78.2 - Mixed hyperlipidemia (6) History of stroke Status: Chronic (7) Dysuria Status: Acute (8) Elevated serum creatinine Status: Acute Clinical Quality Measures DVT/VTE Risk/Contraindication: Risk Factor Score Per Nursin RFS Level Per Nursing on Admit: 4+=Very High FAIZA JOLLEY DO Oct 31, 2018 13:15
[2018-10-31 14:05] VITALS: BP 136/78
--- NOTE | 2018-10-31 14:18 | NUR ---
FIRE MANAGEMENT TECHNICIAN met with patient and spouse to review home pass from yesterday. Both state home visit went well. Spouse has a walker and wheelchair for home use; however, inquired about tub shower transfer bench, grab bars and bedside commode. FIRE MANAGEMENT TECHNICIAN reviewed Medicare guidelines in regards to DME coverage. FIRE MANAGEMENT TECHNICIAN suggested spouse visit the local [employer] [facility] to inquire about equipment to borrow, spouse will do so later today.FIRE MANAGEMENT TECHNICIAN provided Medicare approved home health list as patient will need PT OT RN and bath aide. Discharge scheduled for 11/02.
--- NOTE | 2018-10-31 15:09 | Therapy Group Daily Note ---
Therapy Daily Group Note Patient Education Topic Exercises, Other List Below (car transfer) Exercises LE Seated Exercise, UE Exercise Other/Notes Pt. participated in PT group session this date. Pt. came to group via wc. Pts. introduced themselves and shared their New Years Resolutions. Pts. were distributed written illustrated cards with seated U&L extremity exercises on them and each patient read and demonstrated the exercises they were given while leading the others in exercise. The car simulator device was brought to the group. Safe car TRF was demonstrated with emphasis on sitting on car seat with both feet on ground when getting in/out as well as possibly sitting on a cushion in the car seat if needed for height and scooting seat to full back position to enter and exit car. Devices that attach to a car and allow for easier exit were discussed. Pt. to room after group with quinn at hand, needs met. Pt benefitted from the group setting as it provided discussion amongst all members regarding barriers of recent hospitalization and how they dealt with it. Start Time: 13:00 Stop Time: 14:00 Total Billed Treatment Time: 60 Total Billed Treatment visit GRP 60 JORGE WINCHESTER PT Oct 31, 2018 15:09
[2018-10-31 15:33] VITALS: BP 117/71
[2018-10-31] MEDS: glyBURIDE 5 MG (MICRONASE) TAB PO SCH (17:35)
[2018-10-31] MEDS: ALPRAZolam 0.25 MG (XANAX) TAB PO PRN (21:20)
[2018-10-31] MEDS: ASPIRIN E.C. 81 MG (ECOTRIN) TAB PO SCH (21:20)
[2018-10-31] MEDS: MELATONIN 3 MG TABLET PO SCH (21:20)
[2018-10-31 21:21] VITALS: BP 155/85
[2018-10-31] MEDS: inSUlin DETERMIR 1 UNIT/0.01 ML (LEVEMIR) CHARGE PER UNIT SQ SCH (22:07)
[2018-11-01 05:01] VITALS: BP 146/73
[2018-11-01] MEDS: inSUlin ASPART (NovoLOG) 1 UNIT/0.01 ML (CHARGE PER UNIT) SC SCH ×4 (05:03→20:14)
[2018-11-01] MEDS: glyBURIDE 2.5 MG (MICRONASE) TAB PO SCH (06:36)
[2018-11-01] MEDS: KCL 10 MEQ TAB (MICRO K) PO SCH (06:36)
[2018-11-01] MEDS: MULTIVIT W/MINERALS TAB (THERAGRAN M) PO SCH (06:36)
[2018-11-01] MEDS: LACTOBACILLUS ACIDOPHILUS (PROBIOTIC) CAPSULE PO SCH (06:36)
[2018-11-01] MEDS: VITAMIN D3 1,000 UNITS (CHOLECALCIFEROL) TABLET PO SCH (09:38)
[2018-11-01] MEDS: cloNIDine 0.1 MG (CATAPRES) TAB PO SCH ×3 (09:38→20:15)
[2018-11-01] MEDS: amLODIPine 5 MG (NORVASC) TAB PO SCH (09:38)
[2018-11-01] MEDS: meTOprolol TARTRATE 50 MG (LOPRESSOR) TAB PO SCH ×2 (09:38→20:15)
[2018-11-01] MEDS: FLUTICASONE NASAL SPRAY (FLONASE) 16 GM BTL NS SCH (09:39)
[2018-11-01] MEDS: METANX PO SCH ×2 (09:39→20:15)
--- NOTE | 2018-11-01 10:22 | Physical Therapy Daily Note ---
PT Daily Note-Current Subjective Patient agrees to therapy. Pain Numeric Pain Scale: 0-No Pain Location: No Pain Reported Mental Status Patient Orientation: Confused Transfers Therapy Code Descriptions/Definitions Functional [place] Measure: 0=Not Assessed/NA 4=Minimal Assistance 1=Total Assistance 5=Supervision or Setup 2=Maximal Assistance 6=Modified [place] 3=Moderate Assistance 7=Complete [place] Therapy Quality Codes: 6 Independent with activity with or without an assistive device 5 Patient requires set up or clean up by helper. Patient completes activity by themselves 4 Supervision or touching assist (CGA). [place] provide cues , steadying assist 3 The helper provides less than half the effort to complete the activity 2 The helper provides more than half the effort to complete the activity 1 Dependent. The helper does all the effort to complete an activity 7 Patient refused to complete or attempt activity 9 The patient did not perform the activity before the current illness or injury 88 Not attempted due to Medical conditions or safety concerns Transfers (B, C, W/C) (FIM): 5 Scootin Rollin Roll Left to Right (QC): 5 Supine to/from Sit: 5 Sit to/from Stand: 5 Sit to Lying (QC): 5 Sit to Stand (QC): 5 Chair/Rey-og-Wyzbm Xfer(QC): 5 Bed to/from Chair: 5 Weight Bearing Right Lower Extremity: Right Full Weight Bearing Left Lower Extremity: Left Full Weight Bearing Gait Training Does the Patient Walk?: Yes Gait (FIM): 5 Distance (FIM): 3=150 ft Distance: 200' x 2 Walk 10 feet (QC): 5 Walk 50 ft with 2 Turns(QC): 5 Walk 150 ft (QC): 5 Gait Level of Assist: 5 Gait Assistive Device: FWW extended UE's with shuffle gait sequence Exercises Seated Therapy Exercises: Shoulder Flex, Reaching activity Seated Reps: 25 (2 sets in chair) Treatments Patient performed standing ADL's at sink with brushing teeth and applying toothpaste to toothbrush independently. Patient then performed standing balance activity at sink with washing face with set up only. Patient then performed theraputty (yellow) with finding beads x 20. Arm bike x 10 min with minimal resistance to increase strength and shoulder mobility. Seated bilateral UE exercises with 2# wt bicep curls x 20 reps x 3 sets with recovery periods due to fatigue. Shoulder flexion/abduction in seated position 20 reps x 3 sets with assist to full ROM. Assessment Patient requires time and encouragement to complete all functional tasks SBA. Patient returned to bed with 4 rails up and bed alarm activated. Patient progressing with treatment plan. PT Short Term Goals Short Term Goals Time Frame: Oct 17, 2018 Transfers (B,C,W/C) (FIM): 4 Gait (FIM): 2 (met) Distance (FIM): 2=657-85 ft Gait Distance Comment: 50 ft Gait Level of Assist: 4 Gait Assistive Device: FWW Wheelchair Distance: 0 feet Stairs (FIM): 2 # of Steps: 1 PT Creping Machine Operator Helper Goals Snf Goals PT Creping Machine Operator Helper Goals Time Frame: Oct 31, 2018 Transfers (B,C,W/C) (FIM): 6 Sit to Lying (QC): 6 Lying-Sitting on Side/Bed(QC): 6 Sit to Stand (QC): 6 Rollin Roll Left to Right (QC): 6 Chair/Syp-sp-Nokyb Xfer(QC): 6 Car Transfer (QC): 5 Does the Patient Walk: No and Walking Goal IS indicated Gait (FIM): 6 Gait distance (FIM): 3=150 ft Walk 10 feet (QC): 6 Walk 10ft-Uneven Surface(QC): 5 Walk 50ft with 2 Turns (QC): 6 Walk 150 ft (QC): 6 Gait Level of Assist: 6 Gait Assistive Device: FWW Does the Pt use WC or Scooter?: Yes Wheelchair (FIM): 6 Wheelchair distance (FIM): 3=150 ft Wheel 50 feet with 2 turns (QC: 6 Stairs (FIM): 5 # of Steps: 4 1 Step (curb) (QC): 6 4 Steps (QC): 6 12 Steps (QC): 88 Picking up an Object (QC): 4 PT Plan Treatment/Plan Treatment Plan: Continue Plan of Care Treatment Plan: Bed Mobility, Education, Functional Activity Shiv, Functional Strength, Group Therapy, Gait, Safety, Therapeutic Exercise, Transfers Treatment Duration: Oct 31, 2018 Frequency: At least 5 of 7 days/Wk (IRF) Estimated Hrs Per Day: 1.5 hours per day Patient and/or Family Agrees t: Yes Time/GCodes Time In: 915 Time Out: 1015 Total Billed Treatment Time: 60 Total Billed Treatment 1 visit EX x 3 43 min FA 17 min MARLENE,SOPHIA PT Nov 01, 2018 10:22
[2018-11-01] MEDS: ASCORBIC ACID (VIT C) 500 MG TABLET PO SCH (11:22)
--- NOTE | 2018-11-01 12:09 | PM&R Progress Note ---
Subjective This was a face to face visit with the patient. Date Seen by Provider: Nov 01, 2018 Time Seen by Provider: 11:30 Subjective/Events-last exam Patient was seen in her room in bed. at the bedside. Except for discharge tomorrow with Feels pretty good and confident about the discharge plan High sugars occurred after she drank and ensure that had 40 carbohydrates and it was 326 Restarted metformin at patient and 's request and since creatinine had improved from 1.6-1.3 we will restarted Hypertension much improved with clonidine 0.2 MG 3 times a day Medication Intervention: Metformin restarted at 1000 mg twice a day I help that due to acute elevation in creatinine of 1.6 but rechecked the next day was 1.3 so safe to restart. Review of Systems General: Fatigue Genitourinary: Incontinence Neurological: Weakness, Incoordination Objective Physician Exam Last Set of Vital Signs Vital Signs Date Time Temp Pulse Resp B/P (MAP) Pulse Ox O2 Delivery O2 Flow Rate FiO2 11/01/18 09:00 Room Air 11/01/18 05:01 97.0 60 16 146/73 (97) 95 Capillary Refill : I&O Intake and Output 11/01/18 00:00 Intake Total 640 ml Balance 640 ml Intake Oral 640 ml # Voids 10 General: Alert, Oriented X3, Cooperative, No Acute Distress HEENT: Atraumatic, PERRLA, EOMI, Mucous Memb Moist/[place], Other (dysphagia) Neck: Supple, No JVD Lungs: Clear to Auscultation Heart: Regular Rate Abdomen: Normal Bowel Sounds, Soft, No Tenderness Extremities: No Edema Skin: No Rashes, No Breakdown, Other ([place] just d/cd for TOV) Neuro: Other (Strength 2 to 2+/5 Ble except Rt dorsiflexion 1/5 Weakness in both upper limbs as well) Psych/Mental Status: Mental Status NL, Other (depressed and flat affect at baseline) Results Lab Data Laboratory Tests 10/29/18 16:07: Glucometer 172H 10/29/18 20:41: Glucometer 217H 10/30/18 05:15: Glucometer 120H 10/30/18 05:30: White Blood Count 4.7, Red Blood Count 3.81L, Hemoglobin 10.3L, Hematocrit 33L, Mean Corpuscular Volume 87, Mean Corpuscular Hemoglobin 27, Mean Corpuscular Hemoglobin Concent 31L, Red Cell Distribution Width 14.9H, Platelet Count 288, Mean Platelet Volume 11.7H, Neutrophils (%) (Auto) 54, Lymphocytes (%) (Auto) 33 , Monocytes (%) (Auto) 11, Eosinophils (%) (Auto) 2, Basophils (%) (Auto) 0, Neutrophils # (Auto) 2.5, Lymphocytes # (Auto) 1.6, Monocytes # (Auto) 0.5, Eosinophils # (Auto) 0.1, Basophils # (Auto) 0.0, Sodium Level 140, Potassium Level 4.1, Chloride Level 103, Carbon Dioxide Level 23, Anion Gap 14, Blood Urea Nitrogen 33H, Creatinine 1.61H, Estimat Glomerular Filtration Rate 32, BUN/ Creatinine Ratio 20, Glucose Level 127H, Calcium Level 9.5, Corrected Calcium 9.7, Total Bilirubin 0.6, Aspartate Amino Transf (AST/SGOT) 29, Alanine Aminotransferase (ALT/SGPT) 40, Alkaline Phosphatase 70, Total Protein 6.5, Albumin 3.8 10/30/18 16:35: Glucometer 165H 10/30/18 21:04: Glucometer 187H 10/31/18 04:22: Glucometer 127H 10/31/18 07:53: Sodium Level 138, Potassium Level 4.0, Chloride Level 101, Carbon Dioxide Level 21, Anion Gap 16H, Blood Urea Nitrogen 28H, Creatinine 1.32H, Estimat Glomerular Filtration Rate 40, BUN/Creatinine Ratio 21, Glucose Level 231H, Calcium Level 9.6 10/31/18 10:55: Glucometer 297H 10/31/18 15:20: Glucometer 160H 10/31/18 20:09: Glucometer 347H 10/31/18 22:02: Glucometer 242H 11/01/18 04:25: Glucometer 115H 11/01/18 11:16: Glucometer 369H Microbiology 10/04/18 C. difficile GDH Antigen & Toxins - Final, Complete 10/23/18 Urine Culture - Final, Complete Enterococcus faecalis Current Funtional Status PT assessment: Pt. is very slow with transfers and needs min A with R LE during sit to supine. Pt. needs cues to stay close to walker and to improve foot clearance during ambulation. Pt. also needs cues to complete exercises through full ROM and step length on Nustep. Pt. returned to bed post session with call light and all needs met. Progress Toward Rehab Goals Continue therapies as currently maintained Improved self-confidence in preparation for discharge on 11/02/18 Supportive family present Reviewed all meds and labs Assessment/Plan Assessment and Plan (1) Generalized weakness Status: Acute (2) Multiple sclerosis Status: Chronic (3) Hypertension Qualifiers: Qualified Codes: I10 - Essential (primary) hypertension Status: Chronic (4) Insulin dependent diabetes mellitus Status: Chronic (5) Hyperlipidemia Qualifiers: Qualified Codes: E78.2 - Mixed hyperlipidemia Status: Chronic (6) History of stroke Status: Chronic (7) Dysuria Status: Resolved (8) Elevated serum creatinine Status: Acute Co-Morbidities that are continuing to impact the rehab process: (include details ) FAIZA JOLLEY DO Nov 01, 2018 12:09
[2018-11-01] MEDS: [UNRECOGNIZED DRUG - OTHER] PO SCH (12:46)
[2018-11-01] MEDS: metFORMIN 500 MG (GLUCOPHAGE) TAB PO SCH ×2 (12:46→17:20)
--- NOTE | 2018-11-01 12:54 | Physical Therapy Daily Note ---
PT Daily Note-Current Subjective Pt. in bed, agrees to therapy. She denies pain, states she hopes to go home tomorrow. Mental Status Patient Orientation: Normal For Age Transfers Therapy Code Descriptions/Definitions Functional [place] Measure: 0=Not Assessed/NA 4=Minimal Assistance 1=Total Assistance 5=Supervision or Setup 2=Maximal Assistance 6=Modified [place] 3=Moderate Assistance 7=Complete [place] Therapy Quality Codes: 6 Independent with activity with or without an assistive device 5 Patient requires set up or clean up by helper. Patient completes activity by themselves 4 Supervision or touching assist (CGA). [place] provide cues , steadying assist 3 The helper provides less than half the effort to complete the activity 2 The helper provides more than half the effort to complete the activity 1 Dependent. The helper does all the effort to complete an activity 7 Patient refused to complete or attempt activity 9 The patient did not perform the activity before the current illness or injury 88 Not attempted due to Medical conditions or safety concerns Transfers (B, C, W/C) (FIM): 4 Supine to/from Sit: 4 Sit to/from Stand: 5 assist needed with R LE during sit to supine. Pt. is SBA with toilet transfer and mod (I) with toileting. Weight Bearing Right Lower Extremity: Right Full Weight Bearing Left Lower Extremity: Left Full Weight Bearing Gait Training Does the Patient Walk?: Yes Gait (FIM): 5 Distance (FIM): 3=150 ft Distance: 2 x 200 ft Gait Level of Assist: 5 Gait Persons Needed: 1 Gait Assistive Device: FWW slow gait pattern but no LOB Stair Training Stair Training: Handrails/: 2 handrails Stairs (FIM): 2 #of Steps: 4 Stairs: Pattern: Step to Level of Assist: 4 close CGA/min A Exercises Seated Therapy Exercises: Ankle pumps, Long arc quads, Hip flexion, Hamstring Curls, Hip abd/add, Glut set Seated Reps: 20 Standing: Sit to Stand (10 reps), Side steps (2 trips at // bars) NuStep Minutes: 15 NuStep Workload: 4 Treatments gait, exercise, transfers Assessment Current Status: Good Progress Pt. is very slow with transfers and needs min A with R LE during sit to supine. Pt. needs cues to stay close to walker and to improve foot clearance during ambulation. Pt. also needs cues to complete exercises through full ROM and step length on Nustep. Pt. returned to bed post session with call light and all needs met. PT Short Term Goals Short Term Goals Time Frame: Oct 17, 2018 Transfers (B,C,W/C) (FIM): 4 Gait (FIM): 2 (met) Distance (FIM): 5=154-57 ft Gait Distance Comment: 50 ft Gait Level of Assist: 4 Gait Assistive Device: FWW Wheelchair Distance: 0 feet Stairs (FIM): 2 # of Steps: 1 PT Long-Term Goals Cafe Worker Goals PT Long-Term Goals Time Frame: Oct 31, 2018 Transfers (B,C,W/C) (FIM): 6 Sit to Lying (QC): 6 Lying-Sitting on Side/Bed(QC): 6 Sit to Stand (QC): 6 Rollin Roll Left to Right (QC): 6 Chair/Ugv-ok-Qbsdq Xfer(QC): 6 Car Transfer (QC): 5 Does the Patient Walk: No and Walking Goal IS indicated Gait (FIM): 6 Gait distance (FIM): 3=150 ft Walk 10 feet (QC): 6 Walk 10ft-Uneven Surface(QC): 5 Walk 50ft with 2 Turns (QC): 6 Walk 150 ft (QC): 6 Gait Level of Assist: 6 Gait Assistive Device: FWW Does the Pt use WC or Scooter?: Yes Wheelchair (FIM): 6 Wheelchair distance (FIM): 3=150 ft Wheel 50 feet with 2 turns (QC: 6 Stairs (FIM): 5 # of Steps: 4 1 Step (curb) (QC): 6 4 Steps (QC): 6 12 Steps (QC): 88 Picking up an Object (QC): 4 PT Plan Treatment/Plan Treatment Plan: Continue Plan of Care Treatment Plan: Bed Mobility, Education, Functional Activity Shiv, Functional Strength, Group Therapy, Gait, Safety, Therapeutic Exercise, Transfers Treatment Duration: Oct 31, 2018 Frequency: At least 5 of 7 days/Wk (IRF) Estimated Hrs Per Day: 1.5 hours per day Patient and/or Family Agrees t: Yes Time/GCodes Time In: 0814 Time Out: 914 Total Billed Treatment Time: 60 Total Billed Treatment 1, GT 15', FA 10', Ex 35' JJ PEREZ PT Nov 01, 2018 12:54
--- NOTE | 2018-11-01 14:24 | Therapy Group Daily Note ---
Therapy Daily Group Note Patient Education Topic Home Safety, Fall Prevention Other/Notes Pt was an active participant in OT/PT group. She interacted appropriately with others in the group and introduced herself by talking about how she got here ( safety awareness). She contributed to education/discussion on home safety and fall prevention and was able to verbalize ways that she could plan to be safer when she goes home this week. She returned to her room, up in w/c, all needs met. Start Time: 13:00 Stop Time: 14:00 Total Billed Treatment Time: 60 Total Billed Treatment visit, 60 minutes group STAR ANDREWS OT Nov 01, 2018 14:24
[2018-11-01 17:10] VITALS: BP 128/74
[2018-11-01] MEDS: glyBURIDE 5 MG (MICRONASE) TAB PO SCH (17:20)
[2018-11-01] MEDS: inSUlin DETERMIR 1 UNIT/0.01 ML (LEVEMIR) CHARGE PER UNIT SQ SCH (20:14)
[2018-11-01] MEDS: ASPIRIN E.C. 81 MG (ECOTRIN) TAB PO SCH (20:15)
[2018-11-01] MEDS: MELATONIN 3 MG TABLET PO SCH (20:15)
[2018-11-02 05:09] VITALS: BP 146/82
[2018-11-02] MEDS: inSUlin ASPART (NovoLOG) 1 UNIT/0.01 ML (CHARGE PER UNIT) SC SCH ×2 (05:32→11:38)
[2018-11-02] MEDS: metFORMIN 500 MG (GLUCOPHAGE) TAB PO SCH (06:02)
[2018-11-02] MEDS: MULTIVIT W/MINERALS TAB (THERAGRAN M) PO SCH (06:02)
[2018-11-02] MEDS: KCL 10 MEQ TAB (MICRO K) PO SCH (06:02)
[2018-11-02] MEDS: glyBURIDE 2.5 MG (MICRONASE) TAB PO SCH (06:02)
[2018-11-02] MEDS: LACTOBACILLUS ACIDOPHILUS (PROBIOTIC) CAPSULE PO SCH (06:02)
[2018-11-02] MEDS: VITAMIN D3 1,000 UNITS (CHOLECALCIFEROL) TABLET PO SCH (08:29)
[2018-11-02] MEDS: FLUTICASONE NASAL SPRAY (FLONASE) 16 GM BTL NS SCH (08:29)
[2018-11-02] MEDS: meTOprolol TARTRATE 50 MG (LOPRESSOR) TAB PO SCH (08:29)
[2018-11-02] MEDS: cloNIDine 0.1 MG (CATAPRES) TAB PO SCH ×2 (08:30→13:48)
[2018-11-02] MEDS: amLODIPine 5 MG (NORVASC) TAB PO SCH (08:30)
[2018-11-02] MEDS: METANX PO SCH (08:31)
[2018-11-02 08:41] VITALS: BP 139/76
--- NOTE | 2018-11-02 09:21 | Speech Therapy Rehab Re-Cert ---
Speech Re-Certification Form Treatment Duration: 2 weeks Speech Therapy Treatment Plan: Continue Plan of Care # of days/week 5 days per week Minutes/Day (M-F): 30 Minutes/Day (Sat/Pool): 0 Rehab Potential: Good Barriers to Learning: Patient tires easily Patient and/or Family Agrees t: Yes Speech Short Term Goals Short Term Goals Short Term Goals 1) Patient will use appropriate linguistic forms to communicate in everyday situations, with 90% or greater accuracy. 2) Patient will identify functions of common items, with 90% or greater accuracy. 3) Patient will express her wants/needs effectively with 90% accuracy. Speech Longterm Goals Casino Cage Supervisor Goals Patient will be able to effectively communicate within her immediate living environment at 90%. HIALE MEJIA Nov 02, 2018 09:21
--- NOTE | 2018-11-02 09:51 | Physical Therapy Rehab Re-Cert ---
PT Re-Certification Form Physical Therapy Treatment Plan: Continue Plan of Care Bed Mobility, Education, Functional Activity Shiv, Functional Strength, Group Therapy, Gait, Safety, Therapeutic Exercise, Transfers Continue PT to work on strengthening and mobility to maximize functional mobility and independence at home and decrease chances of falling. Treatment Duration: 2 weeks Frequency: At least 5 of 7 days/Wk (IRF) Estimated Hrs Per Day: 1.5 hours per day Patient and/or Family Agrees t: Yes Rehab Potential: Fair PT Short Term Goals Short Term Goals Time Frame: Oct 17, 2018 Transfers (B,C,W/C) (FIM): 4 Gait (FIM): 2 (met) Distance (FIM): 8=622-47 ft Gait Distance Comment: 50 ft Gait Level of Assist: 4 Gait Assistive Device: FWW Wheelchair Distance: 0 feet Stairs (FIM): 2 # of Steps: 1 PT Prison Goals Prison Goals PT Manager Ems Goals Time Frame: Oct 31, 2018 Transfers (B,C,W/C) (FIM): 6 Gait (FIM): 6 Gait distance (FIM): 3=150 ft Gait Level of Assist: 6 Gait Assistive Device: FWW Wheelchair (FIM): 6 Wheelchair distance (FIM): 3=150 ft Stairs (FIM): 5 # of Steps: 4 PEBBLES BERRY PT Nov 02, 2018 09:51
--- NOTE | 2018-11-02 09:57 | Physical Therapy Daily Note ---
PT Daily Note-Current Subjective Patient in recliner pre tx, agrees to PT, no complaints of pain. Patient has to go to the bathroom for a BM and she is able to pull pants up and wipe herself with SBA. Appearance Patient in recliner post tx with nurse call, phone, tray, all needs met. Mental Status Patient Orientation: Person, Place, Situation, Normal For Age Transfers Therapy Code Descriptions/Definitions Functional [place] Measure: 0=Not Assessed/NA 4=Minimal Assistance 1=Total Assistance 5=Supervision or Setup 2=Maximal Assistance 6=Modified [place] 3=Moderate Assistance 7=Complete [place] Therapy Quality Codes: 6 Independent with activity with or without an assistive device 5 Patient requires set up or clean up by helper. Patient completes activity by themselves 4 Supervision or touching assist (CGA). [place] provide cues , steadying assist 3 The helper provides less than half the effort to complete the activity 2 The helper provides more than half the effort to complete the activity 1 Dependent. The helper does all the effort to complete an activity 7 Patient refused to complete or attempt activity 9 The patient did not perform the activity before the current illness or injury 88 Not attempted due to Medical conditions or safety concerns Transfers (B, C, W/C) (FIM): 4 Scootin Rollin Roll Left to Right (QC): 4 Supine to/from Sit: 5 Sit to/from Stand: 4 Sit to Lying (QC): 4 Sit to Stand (QC): 4 Chair/Fvh-pg-Pveor Xfer(QC): 4 Bed to/from Chair: 4 Car Transfer (QC): 4 Patient performs bed mobility with SBA, supine <-> sit with SBA, sit <-> stand with CGA, transfers with CGA, car transfer CGA. Still needs cues for hand placement when sitting. She was able to get both legs into and out of bed without assist during supine <-> sit. Weight Bearing Right Lower Extremity: Right Full Weight Bearing Left Lower Extremity: Left Full Weight Bearing Gait Training Gait (FIM): 4 Distance: 150', 80'x2 Walk 10 feet (QC): 4 Walk 50 ft with 2 Turns(QC): 4 Walk 150 ft (QC): 4 Walking 10ft/uneven surface-QC: 4 Gait Level of Assist: 4 Gait Persons Needed: 1 Gait Assistive Device: FWW Patient can ambulate 150' with CGA using a rolling walker (including 50' with at least 2 turns of 90 degrees and 10' over an uneven surface). She has some difficulty directing her walker around corners but could do it without assist. Wheelchair Training Does the Pt Use a Wheelchair?: No Stair Training Stair Training: Handrails/: 2 handrails Stairs (FIM): 2 #of Steps: 4 1 Step (curb) (QC): 3 4 Steps (QC): 3 Stairs: Pattern: Step to Level of Assist: 4 Patient can go up and down 4 steps using 2 handrails with min assist. She needs cues for foot placement, is a little retropulsive when descending. Treatments bed mobility and transfers, ambulation, stair training Assessment Current Status: Fair Progress improved bed mobility PT Short Term Goals Short Term Goals Time Frame: Oct 17, 2018 Transfers (B,C,W/C) (FIM): 4 Gait (FIM): 2 (met) Distance (FIM): 0=085-06 ft Gait Distance Comment: 50 ft Gait Level of Assist: 4 Gait Assistive Device: FWW Wheelchair Distance: 0 feet Stairs (FIM): 2 # of Steps: 1 PT [facility] Goals Security And Privacy Consultant Goals PT Security And Privacy Consultant Goals Time Frame: Oct 31, 2018 Transfers (B,C,W/C) (FIM): 6 Sit to Lying (QC): 6 Lying-Sitting on Side/Bed(QC): 6 Sit to Stand (QC): 6 Rollin Roll Left to Right (QC): 6 Chair/Xof-ng-Idomh Xfer(QC): 6 Car Transfer (QC): 5 Does the Patient Walk: No and Walking Goal IS indicated Gait (FIM): 6 Gait distance (FIM): 3=150 ft Walk 10 feet (QC): 6 Walk 10ft-Uneven Surface(QC): 5 Walk 50ft with 2 Turns (QC): 6 Walk 150 ft (QC): 6 Gait Level of Assist: 6 Gait Assistive Device: FWW Does the Pt use WC or Scooter?: Yes Wheelchair (FIM): 6 Wheelchair distance (FIM): 3=150 ft Wheel 50 feet with 2 turns (QC: 6 Stairs (FIM): 5 # of Steps: 4 1 Step (curb) (QC): 6 4 Steps (QC): 6 12 Steps (QC): 88 Picking up an Object (QC): 4 PT Plan Problem List Problem List: Activity Tolerance, Functional Strength, Safety, Balance, Gait, Transfer, Bed Mobility, ROM Treatment/Plan Treatment Plan: Continue Plan of Care Treatment Plan: Bed Mobility, Education, Functional Activity Shiv, Functional Strength, Group Therapy, Gait, Safety, Therapeutic Exercise, Transfers Treatment Duration: Oct 31, 2018 Frequency: At least 5 of 7 days/Wk (IRF) Estimated Hrs Per Day: 1.5 hours per day Patient and/or Family Agrees t: Yes Safety Risks/Education Patient Education: Gait Training, Transfer Techniques, Steps, Correct Positioning, Safety Issues Teaching Recipient: Patient Teaching Methods: Demonstration, Discussion Response to Teaching: Reinforcement Needed Time/GCodes Time In: 0900 Time Out: 09 Total Billed Treatment Time: 30 Total Billed Treatment 1 visit GT 15' FA 15' PEBBLES BERRY PT Nov 02, 2018 09:57
--- NOTE | 2018-11-02 10:06 | Therapy Team Discharge Summary ---
Therapy Discharge Summary Discharge Recommendations Date of Discharge Therapy D/C Recommendations: Physical Therapy Home Care Physical Therapy Patient came to rehab with diagnosis of MS. Upon evaluation patient performed bed mobility and transfers with max assist, no ambulation or stairs. Patient has been performing bed mobility and transfer training, balance and endurance training, functional strengthening, stair training, gait training, and education. Patient has made fair progress but has not met any of her mcfp goals. Now, patient performs bed mobility with SBA, supine <-> sit with SBA, sit <-> stand with CGA, transfers with CGA, car transfer CGA, ambulates 150' with CGA using a rolling walker (including 50' with at least 2 turns of 90 degrees and 10' over an uneven surface), and can go up and down 4 steps using 2 handrails with min assist. Patient is discharging from this facility today and will be discharged from PT at this time. Occupational Therapy Decreased Activ Tolerance, Decreased Safety Aware, Decreased UE Strength, Dependent Transfers, Impaired Bed Mobility, Impaired Cognition, Impaired Coordination, Impaired Funct Balance, Impaired I ADL's, Impaired Self-Care Skills, Restricted Funct UE ROM PT Chcf Goals Chcf Goals PT Labor Conciliator Goals Time Frame: Oct 31, 2018 Transfers (B,C,W/C) (FIM): 6 Roll Left to Right (QC): 6 Sit to Lying (QC): 6 Lying-Sitting on Side/Bed(QC): 6 Sit to Stand (QC): 6 Chair/Thx-cm-Jrmfm Xfer(QC): 6 Car Transfer (QC): 5 Does the Patient Walk: No and Walking Goal IS indicated Gait (FIM): 6 Gait distance (FIM): 3=150 ft Walk 10 feet (QC): 6 Walk 10ft-Uneven Surface(QC): 5 Walk 50ft with 2 Turns (QC): 6 Walk 150 ft (QC): 6 Gait Level of Assist: 6 Gait Assistive Device: FWW Does the Pt use WC or Scooter?: Yes Wheelchair (FIM): 6 Wheelchair distance (FIM): 3=150 ft Wheel 50 feet with 2 turns (QC: 6 Stairs (FIM): 5 # of Steps: 4 1 Step (curb) (QC): 6 4 Steps (QC): 6 12 Steps (QC): 88 Picking up an Object (QC): 4 OT Labor Conciliator Goals Chcf Goals Time Frame: Oct 31, 2018 Eating (FIM): 6 Eating (QC): 6 Oral Hygiene (QC): 5 Grooming(FIM): 5 Bathing(FIM): 5 Shower/Bathe Self (QC): 4 Upper Body Dressing(FIM): 5 Upper Body Dressing (QC): 5 Lower Body Dressing(FIM): 5 Lower Body Dressing (QC): 4 On/Off Footwear (QC): 4 Toileting(FIM): 6 Toileting Hygiene (QC): 6 Transfers (B,C,W/C) (FIM): 6 Toilet/Commode Transfer(FIM): 6 Toilet/Commode Transfer (QC): 6 Shower Transfer(FIM): 5 Additional Goals: 1-Demonstrate ADL Tasks, 2-Verbalize Understanding, 3- ImproveStrength/Shiv 1=Demonstrate adherence to instructed precautions during ADL tasks. 2=Patient will verbalize/demonstrate understanding of assistive devices/ modifications for ADL. 3=Patient will improve strength/tolerance for activity to enable patient to perform ADL's. Speech Chcf Goals Chcf Goals Patient will be able to effectively communicate within her immediate living environment at 90%. PEBBLES BERRY PT Nov 02, 2018 10:05
--- NOTE | 2018-11-02 10:12 | Occupational Ther Daily Note ---
OT Current Status-Daily Note Subjective Pt alert, lying in bed. Pt agrees to therapy. No c/o pain. Pt to discharge today. Mental Status/Objective Patient Orientation: Person, Place, Time, Situation Therapy Code Descriptions/Definitions Functional [place] Measure: 0=Not Assessed/NA 4=Minimal Assistance 1=Total Assistance 5=Supervision or Setup 2=Maximal Assistance 6=Modified [place] 3=Moderate Assistance 7=Complete [place] ADL-Treatment Therapy Code Descriptions/Definitions Functional [place] Measure: 0=Not Assessed/NA 4=Minimal Assistance 1=Total Assistance 5=Supervision or Setup 2=Maximal Assistance 6=Modified [place] 3=Moderate Assistance 7=Complete [place] Therapy Quality Codes: 6 Independent with activity with or without an assistive device 5 Patient requires set up or clean up by helper. Patient completes activity by themselves 4 Supervision or touching assist (CGA). [place] provide cues , steadying assist 3 The helper provides less than half the effort to complete the activity 2 The helper provides more than half the effort to complete the activity 1 Dependent. The helper does all the effort to complete an activity 7 Patient refused to complete or attempt activity 9 The patient did not perform the activity before the current illness or injury 88 Not attempted due to Medical conditions or safety concerns Eating (FIM): 6 (Pt opened/package and uses regular utensils to eat.) Eating (QC): 6 Grooming (FIM): 6 (Sitting at sink, pt able to complete by self.) Oral Hygiene (QC): 6 Bathing (FIM): 4 (Using grabbars, shower bench, hand held shower and shower chair. Pt able to complete own bathing. Propped LE onto shower bench to wash legs. CGA in standing while pt cleansed lauri area/buttocks.) Bathing Location: L Arm, R Arm, L Upper Leg, R Upper Leg, L Lower Leg ( including foot), R Lower Leg (including foot), Chest, Abdomen, Buttocks, Perineal Area Shower/Bathe Self (QC): 4 (CGA) Upper Body (FIM): 4 (Doffed shirt by self. Assist only to adjust shirt after pt donned.) Upper Body Dressing (QC): 4 Lower Body Dressing (FIM): 4 (Using AE pt able to don/doff clothing. Pt required assist to utilize AE to manipulate clothing. CGA in standing while pt hiked pants over hips. Pt able to don socks with sock aide.) Lower Body Dressing (QC): 3 On/Off Footwear (QC): 4 (AE to don/doff socks. Pt place feet into) Toileting (FIM): 4 (CGA in standing to manipulate clothing. Pt able to complete hygiene in sitting.) Toileting Hygiene (QC): 4 Transfers (B, C, W/C) (FIM): 4 (CGA using FWW.) Toilet/Commode Transfer (FIM): 4 (Using grabbars, elevated toilet seat, FWW and verbal cues for safe positioning of body, CGA.) Toilet Transfer (QC): 4 Shower Transfer(FIM): 4 (CGA using grabbar, FWW and shower bench.) Pt was educated on tub transfer bench and how to use. Pt demonstrated ability to complete with CGA to transfer onto and off of bench. Pt lifted legs and scooted on bench to get into tub. After therapy, pt sitting in recliner with call light/phone in reach. All needs met in room. OT Short Term Goals Short Term Goals Time Frame: Oct 17, 2018 Eating(FIM): 3 Grooming(FIM): 3 Bathing(FIM): 3 Upper Body Dressing(FIM): 4 Lower Body Dressing(FIM): 3 Toileting(FIM): 3 Transfers (B,C,W/C) (FIM): 4 Toilet/Commode Transfer(FIM): 4 Shower Transfer(FIM): 4 Additional Short Term Goals: 1-Demonstrate ADL Tasks, 2-Verbalize Understanding , 3-ImproveStrength/Shiv 1=Demonstrate adherence to instructed precautions during ADL tasks. 2=Patient will verbalize/demonstrate understanding of assistive devices/ modifications for ADL. 3=Patient will improve strength/tolerance for activity to enable patient to perform ADL's. OT Correction Goals Nonprofit Fundraiser Goals Time Frame: Oct 31, 2018 Eating (FIM): 6 (met) Eating (QC): 6 (met) Groomin (met) Oral Hygiene (QC): 5 (met) Bathing(FIM): 5 (not met) Shower/Bathe Self (QC): 4 (met) Upper Body Dressing(FIM): 5 (not met) Upper Body Dressing (QC): 5 (not met) Lower Body Dressing(FIM): 5 (not met) Lower Body Dressing (QC): 4 (not met) On/Off Footwear (QC): 4 (met) Toileting(FIM): 6 (not met) Toileting Hygiene (QC): 6 (not met) Transfers (B,C,W/C) (FIM): 6 (not met) Toilet/Commode Transfer(FIM): 6 (not met) Toilet/Commode Transfer (QC): 6 (not met) Shower Transfer(FIM): 5 (not met) Additional Goals: 1-Demonstrate ADL Tasks, 2-Verbalize Understanding, 3- ImproveStrength/Shiv 1=Demonstrate adherence to instructed precautions during ADL tasks. 2=Patient will verbalize/demonstrate understanding of assistive devices/ modifications for ADL. 3=Patient will improve strength/tolerance for activity to enable patient to perform ADL's. OT Education/Plan Discharge Recommendations Plan/Recommendations: Continue POC Treatment Plan/Plan of Care Patient would benefit from OT for education, treatment and training to promote independence in ADL's, mobility, safety and/or upper extremity function for ADL' s. Plan of Care: ADL Retraining, Caregiver Training, Cognitive Retraining, Functional Mobility, Group Exercise/Act as Ind, UE Funct Exercise/Act Treatment Duration: Oct 31, 2018 Frequency: At least 5 of 7 days/Wk (IRF) Estimated Hrs Per Day: 1.5 hours per day Agreement: Yes Rehab Potential: Fair Time/GCodes Start Time: 07:00 Stop Time: 08:30 Total Time Billed (hr/min): 90 Billed Treatment Time 1 visit-ADL 5 (80 min) FA 1 (10 min) JORGE TERRY Nov 02, 2018 10:12
--- NOTE | 2018-11-02 10:34 | Speech Therapy Daily Note ---
Speech Daily Progress Note Subjective Date Seen by Provider: Nov 02, 2018 Time Seen by Provider: 00:30 Patient is anxious to return home today. Objective Patient completed memory tasks related to herself at home with 100% accuracy given no cues. Assessment Assessment Current Status: Good Progress Treatment Plan Discontinue ST, Goals Met Communication Comprehension: 7 Expression: 7 Social Cognition Social Interaction: 7 Problem Solvin Memory: 7 Speech Short Term Goals Short Term Goals Short Term Goals 1) Patient will use appropriate linguistic forms to communicate in everyday situations, with 90% or greater accuracy. Met 2) Patient will identify functions of common items, with 90% or greater accuracy. Met 3) Patient will express her wants/needs effectively with 90% accuracy. Met Speech Communications Professional Goals Custodial Goals Patient will be able to effectively communicate within her immediate living environment at 90%. Met 11/02/18 Speech-Plan Patient/Family Goals Patient/Family Goals: Patient is returning home today with her . Treatment Plan Speech Therapy Treatment Plan: Discontinue ST, Goals Met Patient has achieved highest potential level of function for returning home. Treatment Duration: Nov 02, 2018 Frequency: 5 times per week Estimated Hrs Per Day: .5 hour per day Rehab Potential: Fair Barriers to Learning: Patient continues to tire easily. Pt/Family Agrees to Plan: Yes Safety Risks/Education Teaching Recipient: Patient Teaching Methods: Discussion Response to Teaching: Verbalize Understanding Education Topics Provided: Safety at home. Time Speech Therapy Time In: 10:00 Speech Therapy Time Out: 10:15 Total Billed Time: 15 Billed Treatment Time 1, HAILE Giordano Nov 02, 2018 10:34
--- NOTE | 2018-11-02 10:40 | Therapy Team Discharge Summary ---
Therapy Discharge Summary Discharge Recommendations Date of Discharge 11/02/18 Therapy D/C Recommendations: Physical Therapy Home Care Occupational Therapy Decreased Activ Tolerance, Decreased Safety Aware, Decreased UE Strength, Dependent Transfers, Impaired Bed Mobility, Impaired Cognition, Impaired Coordination, Impaired Funct Balance, Impaired I ADL's, Impaired Self-Care Skills, Restricted Funct UE ROM Speech-Language Pathology Patient was admitted to ARU for therapy to safely return home. Initially the patient was moderate to severe for all modalities. She has made significant progress throughout the course of therapy. She has met all of her ST goals. She is being discharged from skilled services this date. PT Hr Receptionist Goals Hr Receptionist Goals PT [facility] Goals Time Frame: Nov 02, 2018 Transfers (B,C,W/C) (FIM): 6 Roll Left to Right (QC): 6 Sit to Lying (QC): 6 Lying-Sitting on Side/Bed(QC): 6 Sit to Stand (QC): 6 Chair/Xyv-jb-Mpmzh Xfer(QC): 6 Car Transfer (QC): 5 Does the Patient Walk: No and Walking Goal IS indicated Gait (FIM): 6 Gait distance (FIM): 3=150 ft Walk 10 feet (QC): 6 Walk 10ft-Uneven Surface(QC): 5 Walk 50ft with 2 Turns (QC): 6 Walk 150 ft (QC): 6 Gait Level of Assist: 6 Gait Assistive Device: FWW Does the Pt use WC or Scooter?: Yes Wheelchair (FIM): 6 Wheelchair distance (FIM): 3=150 ft Wheel 50 feet with 2 turns (QC: 6 Stairs (FIM): 5 # of Steps: 4 1 Step (curb) (QC): 6 4 Steps (QC): 6 12 Steps (QC): 88 Picking up an Object (QC): 4 OT Hr Receptionist Goals [facility] Goals Time Frame: Oct 31, 2018 Eating (FIM): 6 Eating (QC): 6 Oral Hygiene (QC): 5 Grooming(FIM): 5 Bathing(FIM): 5 Shower/Bathe Self (QC): 4 Upper Body Dressing(FIM): 5 Upper Body Dressing (QC): 5 Lower Body Dressing(FIM): 5 Lower Body Dressing (QC): 4 On/Off Footwear (QC): 4 Toileting(FIM): 6 Toileting Hygiene (QC): 6 Transfers (B,C,W/C) (FIM): 6 Toilet/Commode Transfer(FIM): 6 Toilet/Commode Transfer (QC): 6 Shower Transfer(FIM): 5 Additional Goals: 1-Demonstrate ADL Tasks, 2-Verbalize Understanding, 3- ImproveStrength/Shiv 1=Demonstrate adherence to instructed precautions during ADL tasks. 2=Patient will verbalize/demonstrate understanding of assistive devices/ modifications for ADL. 3=Patient will improve strength/tolerance for activity to enable patient to perform ADL's. Speech [facility] Goals Hr Receptionist Goals Patient will be able to effectively communicate within her immediate living environment at 90%. Met 11/02/18 HAILE MEJIA Nov 02, 2018 10:40
[2018-11-02] MEDS ORDERED: ALPR0.5T7 PO (10:57)
[2018-11-02] MEDS ORDERED: AMLO5TAB7 PO (10:57)
[2018-11-02] MEDS ORDERED: CLON0.1T PO (10:57)
--- NOTE | 2018-11-02 11:00 | D/C HH Face to Face Order ---
D/C Face to Face Orders Instructions for Patient Via [facility], Patient Instructions/FollowUp: Dr Goldsmith in 1 week Physician to follow Patient: Dr Frank Goldsmith Discharge Diet for Home: ADA Diet Patient Problems: MS flare Debility Diabetes out of control HTN out of control Urinary incontinence Patient Data-Allergies,Ht & Wt Patient Allergies: Coded Allergies: canagliflozin (Verified Allergy, Severe, ANAPHYLAXIS, 07/22/15) iodine (Unverified Adverse Reaction, Severe, migraine headache, 07/11/10) lorazepam (Verified Adverse Reaction, Severe, ELEVATED BLOOD PRESSURE, ) zolpidem (Verified Adverse Reaction, Severe, SLEEP WALK, 07/22/15) codeine (Unverified Adverse Reaction, Mild, INCREASED ACTIVITY, 08/13/10) erythromycin base (Unverified Adverse Reaction, Mild, NAUSEA, 08/13/10) Heparin Analogues (Unverified Adverse Reaction, Unknown, 08/13/10) Height (Feet): 5 Height (Inches): 4.00 Weight (Pounds): 114 Weight (Ounces): 0.4 Home Health Need/Face to Face Date of Face to Face: Nov 02, 2018 Clinical Findings: Generalized weakness and fatigue, Instability, Muscle weakness, Unsteady gait I have seen Pt [id number]: Yes Discharged To: Home Diagnosis/Conditions: MS flare Debility Diabetes out of control HTN out of control Urinary incontinence Patient is Homebound due to: Emily fall risk due to instabilty, Muscle weakness Homebound Status Due to the above stated illness, injury or surgical procedure (medical condition or diagnosis) and associated clinical findings, the patient is homebound because of his/her inability to leave home except with aid of a supportive device and/or person AND leaving the home requires a considerable and taxing effort or is medically contraindicated. Pt req the following assistanc: Walker Home Health Nursing Orders Home Health Services Order: Nursing Services, Roll Coating Machine Operator-Evaluate & Treat, Physical Therapy-Evaluate & Treat, Speech Language-Evaluate & Treat, Other (bath aide) Certify Stmt I certify that this patient is under my care and that I, a nurse practitioner or a physician; a information technology assistant working with me, had a face to face encounter that - meets the physician face to face encounter requirements with this patient as dated. FAIZA JOLLEY DO Nov 02, 2018 11:00
--- NOTE | 2018-11-02 11:01 | Discharge Summary-Hospitalist ---
Diagnosis/Chief Complaint Date of Admission Oct 03, 2018 at 13:40 Date of Discharge Discharge Date: Nov 02, 2018 Discharge Diagnosis (1) Generalized weakness Status: Acute (2) Multiple sclerosis Status: Chronic (3) Hypertension Status: Chronic (4) Insulin dependent diabetes mellitus Status: Chronic (5) Hyperlipidemia Status: Chronic (6) History of stroke Status: Chronic (7) Dysuria Status: Resolved (8) Elevated serum creatinine Status: Acute Discharge Summary Discharge Physical Exam Allergies: Coded Allergies: canagliflozin (Verified Allergy, Severe, ANAPHYLAXIS, 07/22/15) iodine (Unverified Adverse Reaction, Severe, migraine headache, 07/11/10) lorazepam (Verified Adverse Reaction, Severe, ELEVATED BLOOD PRESSURE, ) zolpidem (Verified Adverse Reaction, Severe, SLEEP WALK, 07/22/15) codeine (Unverified Adverse Reaction, Mild, INCREASED ACTIVITY, 08/13/10) erythromycin base (Unverified Adverse Reaction, Mild, NAUSEA, 08/13/10) Heparin Analogues (Unverified Adverse Reaction, Unknown, 08/13/10) Vitals & I&Os Vital Signs Date Time Temp Pulse Resp B/P (MAP) Pulse Ox O2 Delivery O2 Flow Rate FiO2 11/02/18 09:48 Room Air 11/02/18 08:41 139/76 (97) 11/02/18 05:09 98.4 65 18 97 Hospital Course Labs (last 24 hrs) Laboratory Tests 11/01/18 15:52: Glucometer 136H 11/01/18 20:11: Glucometer 239H 11/02/18 05:31: Glucometer 155H 11/02/18 11:32: Glucometer 252H Microbiology 10/04/18 C. difficile GDH Antigen & Toxins - Final, Complete 10/23/18 Urine Culture - Final, Complete Enterococcus faecalis Patient resulted labs reviewed. Pending Labs Laboratory Tests 11/02/18 05:31: Glucometer 155 11/02/18 11:32: Glucometer 252 Discharge Home Medications: Active Scripts Active Amlodipine Besylate 5 Mg Tablet 5 Mg PO DAILY Clonidine HCl 0.1 Mg Tablet 0.2 Mg PO TID Alprazolam 0.5 Mg Tablet 0.5 Mg PO TID PRN Reported Vitamin C (Ascorbate Calcium) 500 Mg Tablet 500 Mg PO 1200 Hydrocortisone Valerate 15 Gm Cream..g. TP BID PRN Probiotic (Lactobacillus Combination No.4) 1 Each Capsule 1 Cap PO DAILY Magnesium Citrate 100 Mg Tablet 100 Mg PO 1200 Multivitamins with Minerals (Multivitamin with Minerals) 1 Each Tablet 1 Tab PO 1200 Glyburide 5 Mg Tablet 5 Mg PO 1800 Metanx Capsule (Levomefolate/B6/B12/Algal Oil) 1 Each Capsule 1 Cap PO BID Vitamin D3 (Cholecalciferol (Vitamin D3)) 2,000 Unit Tab.chew 1,000 Unit PO DAILY Aspirin EC (Aspirin) 81 Mg Tablet.dr 81 Mg PO HS Fluticasone Propionate 16 Gm [place].susp 2 Sprays NS DAILY PRN Levemir Flextouch (Insulin Detemir) 100 Unit/1 Ml Insuln.pen 8 Units SC HS Losartan Potassium 50 Mg Tablet 50 Mg PO 1200 Metformin HCl 500 Mg Tablet 1,000 Mg PO BID TAKES 2 (500MG) TABLETS Glyburide 5 Mg Tablet 2.5 Mg PO DAILY TAKES 1/2 (5MG) TABLET WITH BREAKFAST AND 1 (5MG) TABLET WITH SUPPER Metoprolol Succinate 100 Mg Tab.er.24h 50 Mg PO BID TAKES 1/2 (100MG) TABLET Potassium Chloride 10 Meq Tablet.er 10 Meq PO DAILY Instructions to patient/family Please see electronic discharge instructions given to patient. Clinical Quality Measures DVT/VTE Risk/Contraindication: Risk Factor Score Per Nursin RFS Level Per Nursing on Admit: 4+=Very High Problem Qualifiers (1) Hypertension: Hypertension type: essential hypertension Qualified Codes: I10 - Essential ( primary) hypertension (2) Hyperlipidemia: Hyperlipidemia type: mixed hyperlipidemia Qualified Codes: E78.2 - Mixed hyperlipidemia FAIZA JOLLEY DO Nov 02, 2018 11:01
[2018-11-02] MEDS: ASCORBIC ACID (VIT C) 500 MG TABLET PO SCH (11:37)
--- NOTE | 2018-11-02 12:38 | PM&R Discharge Summary ---
PMR Discharge Summary Admission/Discharge This was a Face to Face visit with the patient. Admit Date Oct 03, 2018 at 13:40 Discharge Date Discharge Diagnosis Rehab Dx-Active Comorbidities: (1) Multiple sclerosis (2) Hypertension (3) History of stroke (4) Elevated serum creatinine (5) Dysuria (6) Hyperlipidemia (7) Generalized weakness (8) Insulin dependent diabetes mellitus Level of Function on Admission She was at a/an [ ] level of mobility for ambulation with [ ], [ ] level for transfers, [ ] for ADLs, and [ ] for cognition at the time of admission. Anticipated Rehab Goals Modified [place] to supervision for adls and mobility skills with improved Cognition and swallow and resolution of urinary retention Rehab Course Patient required a long stay in inpatient rehab due to severe debility from multiple sclerosis flare and after sustaining hypertensive urgency and abnormal MRI requiring transfer to higher level of care. Patient remained on IV steroids when she was admitted placing glucose at very high levels requiring intensive insulin regimen. Bladder function was regained with urology consultation and bladder training due to [place] catheter in place for a long period of time. Bowel function remains stable and closely monitored. She participated in therapy aggressively and received benefits of increasing independence in ADLs and gait training with walker with standby assist. Overall she improved dramatically in the time she was hospitalized in the unit and will have close follow-up with home health services and supportive family. Patient will continue to hold losartan due to this slight elevation of creatinine of 1.6 decreased to 1.3 the following day after holding metformin and losartan and metformin was restarted but she will follow-up with her primary care provider to discuss the losartan restart. Discharge Level of Functioning Currently the patient is requiring [minimal] level of assistance for ambulation/ mobility, [ ] level for transfers, [ ] level of assistance with ADL's and [ ] level of assistance for cognition. Rehab Goals Met- list goals met (from IPOC) Identify any rehab goals not met and explain briefly: (from IPOC) Physical Exam Vital Signs Vital Sign - Last 12Hours Date Time Temp Pulse Resp B/P (MAP) Pulse Ox O2 Delivery O2 Flow Rate FiO2 11/02/18 09:48 Room Air 11/02/18 08:41 139/76 (97) 11/02/18 05:09 98.4 65 18 97 General: Alert, Oriented X3, Cooperative, Other (flat affect baseline) Lungs: Clear to Auscultation, Normal Air Movement Abdomen: Normal Bowel Sounds, No Tenderness Neuro: Normal Speech, Strength at 5/5 X4 Ext, Normal Tone, Other (slowed gait with walker) Psych/Mental Status: Mental Status NL Discharge Medications New Medications: Amlodipine Besylate (Amlodipine Besylate) 5 Mg Tablet 5 MG PO DAILY, #30 TAB Clonidine HCl (Clonidine HCl) 0.1 Mg Tablet 0.2 MG PO TID, #90 TAB Continued Medications: Alprazolam (Alprazolam) 0.5 Mg Tablet 0.5 MG PO TID PRN for ANXIETY, #30 TAB (This prescription has been renewed) Ascorbate Calcium (Vitamin C) 500 Mg Tablet 500 MG PO 1200, TAB (This prescription has been renewed) Aspirin (Aspirin EC) 81 Mg Tablet.dr 81 MG PO HS, TAB (This prescription has been renewed) Cholecalciferol (Vitamin D3) (Vitamin D3) 2,000 Unit Tab.chew 1000 UNIT PO DAILY, TAB Fluticasone Propionate (Fluticasone Propionate) 16 Gm [place].susp 2 SPRAYS NS DAILY PRN for ALLERGIES/CONGESTION, EA (This prescription has been renewed) Glyburide (Glyburide) 5 Mg Tablet 2.5 MG PO DAILY, TAB TAKES 1/2 (5MG) TABLET WITH BREAKFAST AND 1 (5MG) TABLET WITH SUPPER Glyburide (Glyburide) 5 Mg Tablet 5 MG PO 1800, TAB (This prescription has been renewed) Hydrocortisone Valerate (Hydrocortisone Valerate) 15 Gm Cream..g. TP BID PRN for ITCHING, TUBE (This prescription has been renewed) Insulin Detemir (Levemir Flextouch) 100 Unit/1 Ml Insuln.pen 8 UNITS SC HS, EA Lactobacillus Combination No.4 (Probiotic) 1 Each Capsule 1 CAP PO DAILY, CAP (This prescription has been renewed) Levomefolate/B6/B12/Algal Oil (Metanx Capsule) 1 Each Capsule 1 CAP PO BID, CAP (This prescription has been renewed) Losartan Potassium (Losartan Potassium) 50 Mg Tablet 50 MG PO 1200, TAB Magnesium Citrate (Magnesium Citrate) 100 Mg Tablet 100 MG PO 1200, TAB (This prescription has been renewed) Metformin HCl (Metformin HCl) 500 Mg Tablet 1000 MG PO BID, TAB (This prescription has been renewed) TAKES 2 (500MG) TABLETS Metoprolol Succinate (Metoprolol Succinate) 100 Mg Tab.er.24h 50 MG PO BID, TAB TAKES 1/2 (100MG) TABLET Multivitamin with Minerals (Multivitamins with Minerals) 1 Each Tablet 1 TAB PO 1200, TAB (This prescription has been renewed) Potassium Chloride (Potassium Chloride) 10 Meq Tablet.er 10 MEQ PO DAILY, TAB Discontinued Medications: Clonidine HCl (Clonidine HCl) 0.1 Mg Tablet 0.1 MG PO TID FAIZA JOLLEY DO Nov 02, 2018 12:38
[2018-11-02] MEDS: [UNRECOGNIZED DRUG - OTHER] PO SCH (12:39)
--- NOTE | 2018-11-02 12:42 | NUR ---
Discharge medication list faxed to Dr. Goldsmith's office per orders.
--- NOTE | 2018-11-02 13:00 | NUR ---
OK med list faxed to Dr. Goldsmith's office with confirmation of receipt.
--- NOTE | 2018-11-02 13:42 | NUR ---
CATERER HELPER met with patient to confirm home health choice of [place], as CATERER HELPER received voicemail from patient's spouse on Wednesday regarding this choice. Patient states spouse has obtained all necessary equipment in the home and she is eager to discharge today. CATERER HELPER sent referral to [facility] for PT OT ST RN and and bath aide services. CATERER HELPER received confirmation from [facility] of ability to accept. CATERER HELPER reviewed IMM and patient choice letter. Patient expresses no further concerns. Please see discharge summary for further information.
[2018-11-02 13:50] VITALS: BP 117/76
--- NOTE | 2018-11-02 14:00 | NUR ---
Dr. Kimball on floor. Cozaar DC'd on 10/30/18 D/T increasing creatinine. Should it be continued at home? Orders to stop Cozaar until F/U with Dr. Goldsmith on 11/08/18. Patient and spouse informed and verbalized understanding.
[2018-11-02 14:07] VITALS: BP 117/76
--- NOTE | 2018-11-02 14:19 | NUR ---
Call to Dr. Batres's and Dr. Valiente's offices to schedule F/U appointments. Both receptionists requesting [employer] and [employer] [facility] ?[employer]?? list. Faxed with confirmation of receipt. Both receptionists state that they will call the patient within the next few days to schedule F/U appointment. Addendum: 11/02/18 at 1604 by PHILIP FONG RN Patient and spouse informed and verbalized understanding.
--- NOTE | 2018-11-02 14:22 | NUR ---
EDMUND FELIX demonstrates understanding of discharge instructions and accurately returns instructions upon questioning. Copy of Post-Discharge Instructions given to PATIENT. EDMUND FELIX is able to manage continuing needs after discharge WITH SUPPORT FROM SPOUSE AND [facility]. Patient's belongings returned to PATIENT. Patient discharged from 222-1 on 11/02/18 at 1405. EDMUND FELIX left floor via WHEELCHAIR, accompanied by SPOUSE AND RN.
--- NOTE | 2018-11-03 14:44 | Therapy Team Discharge Summary ---
Therapy Discharge Summary Discharge Recommendations Date of Discharge Nov 02, 2018 at 14:05 Therapy D/C Recommendations: Home w/ Family Support, Occupational Therapy Home Care, Physical Therapy Home Care Occupational Therapy Pt. seen by occupational therapy to increase overall strength and independence with daily tasks. Pt. requires continued assistance with most ADLs. Pt. has made progress overall. Pt. has a BSC, walker, wheelchair, and tub transfer bench. Recommend continued therapy in home setting. Pt. to discharge with spouse. Decreased Activ Tolerance, Decreased Safety Aware, Decreased UE Strength, Dependent Transfers, Impaired Bed Mobility, Impaired Cognition, Impaired Coordination, Impaired Funct Balance, Impaired I ADL's, Impaired Self-Care Skills, Restricted Funct UE ROM PT Retirement Goals Retirement Goals PT Retirement Goals Time Frame: Nov 02, 2018 Transfers (B,C,W/C) (FIM): 6 Roll Left to Right (QC): 6 Sit to Lying (QC): 6 Lying-Sitting on Side/Bed(QC): 6 Sit to Stand (QC): 6 Chair/Gza-je-Ttgof Xfer(QC): 6 Car Transfer (QC): 5 Does the Patient Walk: No and Walking Goal IS indicated Gait (FIM): 6 Gait distance (FIM): 3=150 ft Walk 10 feet (QC): 6 Walk 10ft-Uneven Surface(QC): 5 Walk 50ft with 2 Turns (QC): 6 Walk 150 ft (QC): 6 Gait Level of Assist: 6 Gait Assistive Device: FWW Does the Pt use WC or Scooter?: Yes Wheelchair (FIM): 6 Wheelchair distance (FIM): 3=150 ft Wheel 50 feet with 2 turns (QC: 6 Stairs (FIM): 5 # of Steps: 4 1 Step (curb) (QC): 6 4 Steps (QC): 6 12 Steps (QC): 88 Picking up an Object (QC): 4 OT Breakfast Manager Goals Retirement Goals Time Frame: Oct 31, 2018 Eating (FIM): 6 (met) Eating (QC): 6 (met) Oral Hygiene (QC): 5 (met) Grooming(FIM): 5 (met) Bathing(FIM): 5 (not met) Shower/Bathe Self (QC): 4 (met) Upper Body Dressing(FIM): 5 (not met) Upper Body Dressing (QC): 5 (not met) Lower Body Dressing(FIM): 5 (not met) Lower Body Dressing (QC): 4 (not met) On/Off Footwear (QC): 4 (met) Toileting(FIM): 6 (not met) Toileting Hygiene (QC): 6 (not met) Transfers (B,C,W/C) (FIM): 6 (not met) Toilet/Commode Transfer(FIM): 6 (not met) Toilet/Commode Transfer (QC): 6 (not met) Shower Transfer(FIM): 5 (not met) Additional Goals: 1-Demonstrate ADL Tasks, 2-Verbalize Understanding, 3- ImproveStrength/Shiv 1=Demonstrate adherence to instructed precautions during ADL tasks. 2=Patient will verbalize/demonstrate understanding of assistive devices/ modifications for ADL. 3=Patient will improve strength/tolerance for activity to enable patient to perform ADL's. Speech Retirement Goals Breakfast Manager Goals Patient will be able to effectively communicate within her immediate living environment at 90%. Met 11/02/18 LOIS COBOS OT Nov 03, 2018 14:44
--- NOTE | 2018-11-03 15:00 | Occ Therapy Rehab Re-Cert ---
OT Re-Certification Form Plan of Care: ADL Retraining, Caregiver Training, Cognitive Retraining, Functional Mobility, Group Exercise/Act as Ind, UE Funct Exercise/Act Treatment Duration: Goals were ongoing through discharge. Pt. made progress Frequency: At least 5 of 7 days/Wk (IRF) Estimated Hrs Per Day: 1.5 hours per day Agreement: Yes Rehab Potential: Fair OT Short Term Goals Short Term Goals Time Frame: Oct 17, 2018 Eating(FIM): 3 Grooming(FIM): 3 Bathing(FIM): 3 Upper Body Dressing(FIM): 4 Lower Body Dressing(FIM): 3 Toileting(FIM): 3 Transfers (B,C,W/C) (FIM): 4 Toilet/Commode Transfer(FIM): 4 Shower Transfer(FIM): 4 Additional Short Term Goals: 1-Demonstrate ADL Tasks, 2-Verbalize Understanding , 3-ImproveStrength/Shiv 1=Demonstrate adherence to instructed precautions during ADL tasks. 2=Patient will verbalize/demonstrate understanding of assistive devices/ modifications for ADL. 3=Patient will improve strength/tolerance for activity to enable patient to perform ADL's. OT Intermediate Goals Stress Analyst Goals Time Frame: Oct 31, 2018 Eating (FIM): 6 (met) Grooming(FIM): 5 (met) Bathing(FIM): 5 (not met) Upper Body Dressing(FIM): 5 (not met) Lower Body Dressing(FIM): 5 (not met) Toileting(FIM): 6 (not met) Transfers (B,C,W/C) (FIM): 6 (not met) Toilet/Commode Transfer(FIM): 6 (not met) Shower Transfer(FIM): 5 (not met) Additional Goals: 1-Demonstrate ADL Tasks, 2-Verbalize Understanding, 3- ImproveStrength/Shiv 1=Demonstrate adherence to instructed precautions during ADL tasks. 2=Patient will verbalize/demonstrate understanding of assistive devices/ modifications for ADL. 3=Patient will improve strength/tolerance for activity to enable patient to perform ADL's. LOIS COBOS OT Nov 03, 2018 15:00
== END 2018-11-02 14:05 | disposition home health service (06) | DRG 59 ==
PROVIDERS: ADMIT Physical Medicine & Rehabilitation; ATTEND Physical Medicine & Rehabilitation
DX: G35 Multiple sclerosis (principal); R33.9 Retention of urine, unspecified; R32 Unspecified urinary incontinence; N32.81 Overactive bladder; N31.9 Neuromuscular dysfunction of bladder, unspecified; R13.10 Dysphagia, unspecified; E11.42 Type 2 diabetes mellitus with diabetic polyneuropathy; E11.649 Type 2 diabetes mellitus with hypoglycemia without coma; B37.0 Candidal stomatitis; I48.91 Unspecified atrial fibrillation; I12.9 Hypertensive chronic kidney disease with stage 1 through stage 4 chronic kidney disease, or unspecified chronic kidney disease; N18.9 Chronic kidney disease, unspecified; F41.9 Anxiety disorder, unspecified; F32.9 Major depressive disorder, single episode, unspecified; E78.2 Mixed hyperlipidemia; G47.00 Insomnia, unspecified; Z86.73 Personal history of transient ischemic attack (TIA), and cerebral infarction without residual deficits
CPT/HCPCS: 36415; 80048; 80053; 82962; 85025; 85027; 87077; 87088; 87186; 87324; 87449

== ENCOUNTER 2018-12-03 17:50 | Inpatient (IN) | payer MEDICARE ==
[2018-12-03] VITALS (10 sets, daily range): BP systolic 152–233; BP diastolic 78–117
[~2018-12-03] VITALS: Ht 162.6 cm; Wt 57.2 kg
[~2018-12-03 17:50] MED LIST changes: -AMLO5TAB7 PO; +AMLO5TAB9 PO; +ASCO-262 PO; -GEMF600T4 PO; +GEMF600T8 PO; +HYDR15CR36 TP; +LACT1CAP74 PO; +LOSA50TA63 PO; -LOSA50TA7 PO; +MAGN100T6 PO; +MULT-166 PO
--- NOTE | 2018-12-03 17:55 | NUR ---
ATTEMPTED TO START IV ON PT SINCE CURRENT IV IS ONLY A 24G. PT REFUSING ANOTHER IV START ATT.
--- OUTSIDE RECORDS SUMMARY | 2018-12-03 18:00 | XMS REPORT | Clinical Summary ---
Author Author [facility] Organization [facility] Address Unknown Phone Unavailable Care Team Providers Care Composite Worker Name Role Phone PCP Unavailable Source Comments Some departments are not documenting in the electronic medical record. If you do not see the information that you expected, contact Release of Information in the Health Information Management department at [phone] for further assistance in locating additional records.[facility] Allergies Not on File Medications Not on file Active Problems Not on file Encounters Care Team Description Date Type Specialty 09/24/2018 Hospital Radiology Encounter 09/23/2018 Hospital Radiology Encounter 09/23/2018 Hospital Radiology Encounter from Last 3 Months Social History Date Tobacco Use Types Packs/Day Years Used Never Assessed Sex Assigned at Date Recorded Not on file Industry Job Start Date Occupation Not on file Not on file Not on file Travel End Travel History Travel Start No recent travel history available. Last Filed Vital Signs Not on file Plan of Treatment Health Maintenance Due Date Last Done Comments HEPATITIS C SCREENING 1949 PHYSICAL (COMPREHENSIVE) 1956 EXAM DTAP/TDAP VACCINES (1 - 1967 Tdap) BREAST CANCER SCREENING 1989 COLORECTAL CANCER 1999 SCREENING SHINGLES RECOMBINANT 1999 VACCINE (1 of 2) OSTEOPOROSIS 2014 SCREENING/MONITORING PNEUMONIA (PCV13/PPSV23) 2014 VACCINES (1 of 2 - PCV13) INFLUENZA VACCINE 06/01/2018 Procedures Comments Procedure Name Priority Date/Time Associated Diagnosis MRI HEAD EXTERNAL IMAGING Routine 09/24/2018 Diagnosis unknown 12:00 AM INDIRECT SALES REPRESENTATIVE MRI HEAD EXTERNAL IMAGING Routine 09/23/2018 Diagnosis unknown 12:15 AM INDIRECT SALES REPRESENTATIVE CT HEAD EXTERNAL IMAGING Routine 09/23/2018 Diagnosis unknown 12:00 AM INDIRECT SALES REPRESENTATIVE from Last 3 Months Results * MRI HEAD EXTERNAL IMAGING (09/24/2018 12:00 AM INDIRECT SALES REPRESENTATIVE) Only the most recent of 2 results within the time period is included. Narrative Performed At This order has been auto finalized and does not contain a result. * CT HEAD EXTERNAL IMAGING (09/23/2018 12:00 AM INDIRECT SALES REPRESENTATIVE) Narrative Performed At This order has been auto finalized and does not contain a result. from Last 3 Months Advance Directives Patient has advance care planning documents on file. For more information, please contact: [facility] [address] [place] [address]
--- OUTSIDE RECORDS SUMMARY | 2018-12-03 18:00 | XMS REPORT | Encounter Summary ---
Author Author [facility] Organization [facility] Address Unknown Phone Unavailable Care Team Providers Care Gang Supervisor Name Role Phone PCP Unavailable Encounter Details Care Team Description Date Type Department 09/23/2018 Hospital [facility] Hospital Radiology [facility] [address] [place] [address] Social History Date Tobacco Use Types Packs/Day Years Used Never Assessed Sex Assigned at Date Recorded Not on file Industry Job Start Date Occupation Not on file Not on file Not on file Travel End Travel History Travel Start No recent travel history available. as of this encounter Plan of Treatment Not on fileas of this encounter Procedures Comments Procedure Name Priority Date/Time Associated Diagnosis MRI HEAD EXTERNAL IMAGING Routine 09/23/2018 Diagnosis unknown 12:15 AM RN ORTHOPAEDIC in this encounter Results * MRI HEAD EXTERNAL IMAGING (09/23/2018 12:15 AM RN ORTHOPAEDIC) Narrative Performed At This order has been auto finalized and does not contain a result. in this encounter Visit Diagnoses Diagnosis Diagnosis unknown Other unknown and unspecified cause of morbidity or mortality in this encounter
--- OUTSIDE RECORDS SUMMARY | 2018-12-03 18:00 | XMS REPORT | Encounter Summary ---
Author Author [facility] Organization [facility] Address Unknown Phone Unavailable Care Team Providers Care Glass Vial Bending Conveyor Feeder Name Role Phone PCP Unavailable Encounter Details Care Team Description Date Type Department 09/23/2018 Hospital [facility] Hospital Radiology [facility] [address] [place] [address] Social History Date Tobacco Use Types Packs/Day [...] Comments Procedure Name Priority Date/Time Associated Diagnosis CT HEAD EXTERNAL IMAGING Routine 09/23/2018 Diagnosis unknown 12:00 AM MOLDING LINE OPERATOR in this encounter Results * CT HEAD EXTERNAL IMAGING (09/23/2018 12:00 AM MOLDING LINE OPERATOR) Narrative Performed At This order has been auto finalized and does not contain a result. in this encounter Visit Diagnoses Diagnosis Diagnosis unknown Other unknown and unspecified cause of morbidity or mortality in this encounter
--- OUTSIDE RECORDS SUMMARY | 2018-12-03 18:00 | XMS REPORT | Encounter Summary ---
Author Author [facility] Organization [facility] Address Unknown Phone Unavailable Care Team Providers Care Dry Chain Operator Name Role Phone PCP Unavailable Encounter Details Care Team Description Date Type Department 09/24/2018 Hospital [facility] Hospital Radiology [facility] [address] [place] [address] Social History Date Tobacco Use Types Packs/Day [...] IMAGING Routine 09/24/2018 Diagnosis unknown 12:00 AM SHAKER OUT in this encounter Results * MRI HEAD EXTERNAL IMAGING (09/24/2018 12:00 AM SHAKER OUT) Narrative Performed At This order has been auto finalized and does not contain a result. in this encounter Visit Diagnoses Diagnosis Diagnosis unknown Other unknown and unspecified cause of morbidity or mortality in this encounter
[2018-12-03 18:14] LABS: BASOPHILS # (AUTO) 0.1 10^3/uL (0.0-0.1); BASOPHILS % (AUTO) 1 % (0-10); EOSINOPHILS # (AUTO) 0.8 10^3/uL (0.0-0.3); EOSINOPHILS % (AUTO) 15 % (0-10); HEMATOCRIT 36 % (35-52); HEMOGLOBIN 11.7 G/DL (11.5-16.0); LYMPHOCYTES # (AUTO) 1.8 X 10^3 (1.0-4.0); LYMPHOCYTES % (AUTO) 34 % (12-44); MEAN CORPUSCULAR HEMOGLOBIN 28 PG (25-34); MEAN CORPUSCULAR HGB CONC 33 G/DL (32-36); MEAN CORPUSCULAR VOLUME 86 FL (80-99); MEAN PLATELET VOLUME 11.8 FL (7.4-10.4); MONOCYTES # (AUTO) 0.4 X 10^3 (0.0-1.0); MONOCYTES % (AUTO) 7 % (0-12); NEUTROPHILS # (AUTO) 2.3 X 10^3 (1.8-7.8); NEUTROPHILS % (AUTO) 43 % (42-75); PLATELET COUNT 180 10^3/uL (130-400); RED CELL DISTRIBUTION WIDTH 15.1 % (10.0-14.5); WHITE BLOOD COUNT 5.4 10^3/uL (4.3-11.0)
[2018-12-03] MEDS ORDERED: LABETALOL HCL 20 MG/4 ML VIAL IV ONE (18:15)
[2018-12-03 18:26] LABS: INR 0.8 (0.8-1.4); PROTHROMBIN TIME PATIENT 11.1 SEC (12.2-14.7)
[2018-12-03 18:31] LABS: BILIRUBIN,URINE NEGATIVE (NEGATIVE); CLARITY,URINE CLEAR; COLOR,URINE YELLOW; GLUCOSE, URINE (UA) NEGATIVE (NEGATIVE); KETONES,URINE NEGATIVE (NEGATIVE); LEUKOCYTE ESTERASE ,URINE NEGATIVE (NEGATIVE); NITRITE,URINE NEGATIVE (NEGATIVE); PH,URINE 5 (5-9); PROTEIN,URINE NEGATIVE (NEGATIVE); UROBILINOGEN,URINE NORMAL (NORMAL)
[2018-12-03 18:35] LABS: ALANINE AMINOTRANSFERASE 42 U/L (0-55); ALBUMIN 3.4 GM/DL (3.2-4.5); ALKALINE PHOSPHATASE 70 U/L (40-136); BILIRUBIN,TOTAL 0.2 MG/DL (0.1-1.0); BUN/CREATININE RATIO 20; CALCIUM 8.9 MG/DL (8.5-10.1); CARBON DIOXIDE 20 MMOL/L (21-32); CHLORIDE 105 MMOL/L (98-107); CREATININE SERUM 0.84 MG/DL (0.60-1.30); GFR ESTIMATED > 60; GLUCOSE 141 MG/DL (70-105); MAGNESIUM 1.5 MG/DL (1.8-2.4); POTASSIUM 4.1 MMOL/L (3.6-5.0); SODIUM 139 MMOL/L (135-145); TOTAL PROTEIN 6.1 GM/DL (6.4-8.2)
[2018-12-03 18:43] LABS: BAND NEUTROPHILS 0 %; BASOPHILS % (MANUAL) 1 %; EOSINOPHILS % (MANUAL) 11 %; LYMPHOCYTES % (MANUAL) 35 %; MONOCYTES % (MANUAL) 6 %; NEUTROPHILS % (MANUAL) 47 %; RBC MORPH NORMAL
[2018-12-03 18:44] LABS: BACTERIA,URINE NEGATIVE /HPF; SQUAMOUS EPITHELIAL CELL,UR RARE /HPF; WBC,URINE RARE /HPF
[2018-12-03 18:55] LABS: TSH (THYROID ANALYZER) 0.82 UIU/ML (0.35-4.94)
--- NOTE | 2018-12-03 19:05 | Diagnostic Imaging Report ---
PROCEDURE: CT head without contrast. TECHNIQUE: Multiple contiguous axial images were obtained through the brain without the use of intravenous contrast. INDICATION: Fall EXAMINATION: CT brain without contrast 12/03/2018 COMPARISON: 09/24/2018 FINDINGS: Diffuse chronic ischemic changes noted. No superimposed acute infarct or hemorrhage appreciated. There is no mass, mass effect or midline shift. No hydrocephalus. No acute sinus disease. IMPRESSION: 1. Chronic findings. No acute process. Dictated by: Dictated on workstation # [id number]
[2018-12-03] MEDS: MAGNESIUM 1 GM/100 ML IVPB 100 ML IV SCH ×2 (19:08→21:07)
--- NOTE | 2018-12-03 19:11 | ED General ---
General Chief Complaint: General Problems/Pain Stated Complaint: HYPERTENSION Nursing Triage Note: PT PRESENTS TO ED ROOM 10 VIA EMS WITH COMPLAINTS WTIH OF LEFT SIDED AND GENERALIZED WEAKNESS SINCE YESTERDAY. PT REPORTS SHE FELL YESTERDAY WHILE ATTEMPTING TO USE HER WALKER, DENIES LOC OR HITTING HEAD. PT DOES NOT WANT TO ANSWER MANY QUESTIONS ATT OR BE VERY COOPERATIVE Nursing Sepsis Screen: No Definite Risk Source of Information: Patient (LIMITED HISTORIAN), Old Records, Spouse ( ARRIVES LATER AND GIVES RELIABLE HISTORY) History of Present Illness Date Seen by Provider: Dec 03, 2018 Time Seen by Provider: 18:00 Initial Comments PT ARRIVES VIA EMS FROM HOME C/O GENERALIZED WEAKNESS SINCE WEDNESDAY HAS BEEN TOO WEAK TO STAND SINCE YESTERDAY PT HAS HAD THIS ISSUE IN THE PAST WAS ADMITTED THE END OF SEPTEMBER FOR GENERALIZED WEAKNESS AND THESE SAME SYMPTOMS , AND HAD AN MRI WHICH SHOWED AN AREA THAT WAS SUGGESTIVE OF MS, AND PT WAS TRANSFERRED TO [facility]. PT WAS LATER TRANSFERRED BACK HERE FOR REHAB HAS BEEN OUT OF INPATIENT REHAB A MONTH AND HAS BEEN GETTING HOME HEALTH PHYSICAL THERAPY AND HAD BEEN DOING WELL, ACCORDING TO . HE REPORTS THAT PT HAD BEEN ABLE TO AMBULATE WITH A WALKER THE LENGTH OF THE HOUSE A COUPLE OF TIMES NOTICED THAT PT BEGAN TO GET WEAK AGAIN ON Wednesday11/03/18, AND BY WEDNESDAY WAS SIGNIFICANTLY WORSE AND HOME HEALTH PHYSICAL THERAPIST NOTED THIS ALSO. REPORTS THAT PT HAS BEEN TOO WEAK TO EVEN TURN OVER IN BED. HE STATES HER COGNITIVE ABILITY HAS DECLINED OVER THE LAST COUPLE OF DAYS ALSO. YESTERDAY, PT WAS TRYING TO WALK BACK TO HER RECLINER WITH 'S ASSIST AND PT STATES "MY LEGS JUST GOT WEAK" AND SHE SORT OF FELL INTO THE RECLINER, STATES SHE HAD TO LAY IN AN AWKWARD POSITION IN THE RECLINER UNTIL HOME HEALTH P.T. STAFF ARRIVED LATER AND COULD ASSIST WITH PUTTING HER INTO THE CHAIR PT DENIES ANY ACTUAL INJURY FROM THIS. STATES HER SHOULDERS ARE A LITTLE SORE FROM BEING IN AN AWKWARD POSITION FOR SO LONG. PT STATES SHE HAS HAD GENERALIZED WEAKNESS, BUT RIGHT LEG HAS BEEN MORE WEAK THAN LEFT FOR SEVERAL WEEKS. PT STATES SHE HAS NOT FOLLOWED UP WITH ANYONE SINCE BEING DISMISSED FROM THE HOSPITAL / REHAB STATES SHE WAS REFERRED TO SPECIALIST AT --?NEUROLOGIST? --FOR FURTHER EVALUATION, BUT PT STATES SHE DIDN'T WANT TO GO BECAUSE SHE DIDN'T WANT TO TRAVEL THAT FAR AND SIT IN A CAR FOR THAT LONG. NO FEVER OR RECENT ILLNESS NO COUGH/CONGESTION' NO CHEST PAIN NO SHORTNESS OF BREATH NO NAUSEA/VOMITING/DIARRHEA OR ABDOMINAL PAIN--PT HAS BEEN EATING NORMALLY AND WELL. NO URINARY SYMPTOMS NO HEADACHE NO VISION CHANGES NO DIZZINESS NO PAIN ANYWHERE, OTHER THAN SHOULDERS BEING A LITTLE SORE FROM "FALLING" INTO THE RECLINER NO NEW PARESTHESIAS OR FOCAL WEAKNESS--STATES OCCASIONALLY HER FEET ARE TINGLY. BLOOD PRESSURE WAS HIGH AT HOME--215 SYSTOLIC. PT IS DIABETIC, HAS NOT CHECKED BLOOD SUGAR TODAY. PCP: DR. SANTOS. Allergies and Home Medications Allergies Coded Allergies: canagliflozin (Verified Allergy, Severe, ANAPHYLAXIS, 07/22/15) iodine (Unverified Adverse Reaction, Severe, migraine headache, 07/11/10) lorazepam (Verified Adverse Reaction, Severe, ELEVATED BLOOD PRESSURE, ) zolpidem (Verified Adverse Reaction, Severe, SLEEP WALK, 07/22/15) codeine (Unverified Adverse Reaction, Mild, INCREASED ACTIVITY, 08/13/10) erythromycin base (Unverified Adverse Reaction, Mild, NAUSEA, 08/13/10) Heparin Analogues (Unverified Adverse Reaction, Unknown, 08/13/10) Home Medications Alprazolam 0.5 Mg Tablet, 0.5 MG PO TID PRN for ANXIETY Prescribed by: FAIZA JOLLEY on 11/02/18 105 Amlodipine Besylate 5 Mg Tablet, 5 MG PO DAILY Prescribed by: FAIZA JOLLEY on 11/02/18 105 Ascorbate Calcium 500 Mg Tablet, 500 MG PO 1200, (Reported) Aspirin 81 Mg Tablet.dr, 81 MG PO HS, (Reported) Cholecalciferol (Vitamin D3) 2,000 Unit Tab.chew, 1,000 UNIT PO DAILY, (Reported ) Clonidine HCl 0.1 Mg Tablet, 0.2 MG PO TID Prescribed by: FAIZA JOLLEY on 11/02/18 105 Fluticasone Propionate 16 Gm [place].susp, 2 SPRAYS NS DAILY PRN for ALLERGIES/ CONGESTION, (Reported) Glyburide 5 Mg Tablet, 2.5 MG PO DAILY, (Reported) TAKES 1/2 (5MG) TABLET WITH BREAKFAST AND 1 (5MG) TABLET WITH SUPPER Glyburide 5 Mg Tablet, 5 MG PO 1800, (Reported) Hydrocortisone Valerate 15 Gm Cream..g., TP BID PRN for ITCHING, (Reported) Insulin Detemir 100 Unit/1 Ml Insuln.pen, 8 UNITS SC HS, (Reported) Lactobacillus Combination No.4 1 Each Capsule, 1 CAP PO DAILY, (Reported) Levomefolate/B6/B12/Algal Oil 1 Each Capsule, 1 CAP PO BID, (Reported) Losartan Potassium 50 Mg Tablet, 50 MG PO 1200, (Reported) Magnesium Citrate 100 Mg Tablet, 100 MG PO 1200, (Reported) Metformin HCl 500 Mg Tablet, 1,000 MG PO BID, (Reported) TAKES 2 (500MG) TABLETS Metoprolol Succinate 100 Mg Tab.er.24h, 50 MG PO BID, (Reported) TAKES 1/2 (100MG) TABLET Multivitamin with Minerals 1 Each Tablet, 1 TAB PO 1200, (Reported) Potassium Chloride 10 Meq Tablet.er, 10 MEQ PO DAILY, (Reported) Patient Home Medication List Home Medication List Reviewed: Yes Review of Systems Review of Systems Constitutional: see HPI; No chills, No diaphoresis, No dizziness, No fever; malaise, weakness EENTM: no symptoms reported; No blurred vision, No double vision Respiratory: no symptoms reported; No cough, No dyspnea on exertion, No short of breath Cardiovascular: no symptoms reported; No chest pain, No edema, No palpitations , No syncope Gastrointestinal: no symptoms reported; No abdominal pain, No diarrhea, No loss of appetite, No nausea, No vomiting Genitourinary: no symptoms reported Musculoskeletal: see HPI Skin: no symptoms reported Psychiatric/Neurological: See HPI (ALL PER HPI); Denies Headache Hematologic/Lymphatic: No Symptoms Reported Immunological/Allergic: no symptoms reported Past Wtjtmmv-Hvnynk-Dsgxwy Hx Patient Social History Alcohol Use: Denies Use Recreational Drug Use: No Smoking Status: Never a Smoker 2nd Hand Smoke Exposure: No Recent Foreign Travel: No Contact w/Someone Who Travel: No Recent Infectious Disease Expo: No Recent [facility]: [facility] Physical Abuse: No Sexual Abuse: No Immunizations Up To Date Tetanus Booster (TDap): More than 5yrs Date of Pneumonia Vaccine: Aug 01, 2012 Date of Influenza Vaccine: Aug 26, 2017 Seasonal Allergies Seasonal Allergies: Yes Past Medical History Surgeries: Yes (HYSTERECTOMY, thoracentesis, gallbladder, ) Appendectomy, Gallbladder, Hysterectomy, Pancreatic Respiratory: Yes (Thoracentesis) Cardiac: Yes High Cholesterol, Hypertension Neurological: Yes Headaches /Migraines, Multiple Sclerosis, Stroke, TIA 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 Disorders: No 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, 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 Genitourinary: Yes Bladder Infection Gastrointestinal: Yes Pancreatitis Musculoskeletal: Yes (generalized weakness of all extremities) Endocrine: Yes (History of severe electrolyte disturbances) Diabetes, Insulin dep HEENT: No Cancer: No Psychosocial: Yes Anxiety, Depression Integumentary: No Blood Disorders: No Family Medical History Arthritis 19 MOTHER Cardiovascular disease 19 FATHER CVA Physical Exam Vital Signs Vital Signs - First Documented 12/03/18 17:50 Temp 98.2 Pulse 76 Resp 14 B/P (MAP) 215/108 (143) Pulse Ox 98 Capillary Refill : Less Than 3 Seconds Height, Weight, BMI Height: 5'4.00" Weight: 114lbs. 0.4oz. 51.773127mi; 24.2 BMI Method:Stated General Appearance: Other (LETHARGIC, GENERALIZED WEAKNESS, VOICE QUIET AND SLOW. NO DISTRESS. ) HEENT: PERRL/EOMI Neck: Normal Inspection Respiratory: Normal Breath Sounds, No Accessory Muscle Use, No Respiratory Distress Cardiovascular: Regular Rate, Rhythm, No Edema, No JVD, No Murmur, Normal Peripheral Pulses Gastrointestinal: Non Tender, Soft Back: No CVA Tenderness Extremity: Normal Inspection, No Pedal Edema Neurologic/Psychiatric: Alert, Oriented x3, No Motor/Sensory Deficits, board certified arts therapist II- XII Norm as Tested Skin: Warm/Dry, Pallor Focused Exam Lactate Level 12/03/18 23:05: Lactic Acid Level 6.52*H 12/04/18 01:00: Lactic Acid Level 7.95*H 12/04/18 05:00: Lactic Acid Level 9.99*H Lactic Acid Level Progress/Results/Core Measures Suspected Sepsis Recent Fever Within 48 Hours: No Infection Criteria Present: None New/Unexplained Altered Menta: No Sepsis Screen: No Definite Risk SIRS Temperature:98.2 Pulse: 76 Respiratory Rate: 14 Laboratory Tests 12/03/18 18:04: White Blood Count 5.4 12/04/18 03:40: White Blood Count 7.4 Blood Pressure 215 /108 Mean: 143 12/03/18 23:05: Lactic Acid Level 6.52*H 12/04/18 01:00: Lactic Acid Level 7.95*H 12/04/18 05:00: Lactic Acid Level 9.99*H Laboratory Tests 12/03/18 18:04: Creatinine 0.84, INR Comment 0.8, Platelet Count 180, Total Bilirubin 0.2 12/04/18 03:40: Creatinine 0.95, Platelet Count 218, Total Bilirubin 0.3 Results/Orders Lab Results Laboratory Tests Test 12/03/18 18:04 12/03/18 18:16 12/03/18 18:22 12/03/18 18:40 Range/Units White Blood Count 5.4 4.3-11.0 10^3/uL Red Blood Count 4.16 L 4.35-5.85 10^6/uL Hemoglobin 11.7 11.5-16.0 G/DL Hematocrit 36 35-52 % Mean Corpuscular Volume 86 80-99 FL Mean Corpuscular Hemoglobin 28 25-34 PG Mean Corpuscular Hemoglobin Concent 33 32-36 G/DL Red Cell Distribution Width 15.1 H 10.0-14.5 % Platelet Count 180 130-400 10^3/uL Mean Platelet Volume 11.8 H 7.4-10.4 FL Neutrophils (%) (Auto) 43 42-75 % Lymphocytes (%) (Auto) 34 12-44 % Monocytes (%) (Auto) 7 0-12 % Eosinophils (%) (Auto) 15 H 0-10 % Basophils (%) (Auto) 1 0-10 % Neutrophils # (Auto) 2.3 1.8-7.8 X 10^3 Lymphocytes # (Auto) 1.8 1.0-4.0 X 10^3 Monocytes # (Auto) 0.4 0.0-1.0 X 10^3 Eosinophils # (Auto) 0.8 H 0.0-0.3 10^3/uL Basophils # (Auto) 0.1 0.0-0.1 10^3/uL Neutrophils % (Manual) 47 % Lymphocytes % (Manual) 35 % Monocytes % (Manual) 6 % Eosinophils % (Manual) 11 % Basophils % (Manual) 1 % Band Neutrophils 0 % Blood Morphology Comment NORMAL Prothrombin Time 11.1 L 12.2-14.7 SEC INR Comment 0.8 0.8-1.4 Activated Partial Thromboplast Time 20 L 24-35 SEC Sodium Level 139 135-145 MMOL/L Potassium Level 4.1 3.6-5.0 MMOL/L Chloride Level 105 98-107 MMOL/L Carbon Dioxide Level 20 L 21-32 MMOL/L Anion Gap 14 5-14 MMOL/L Blood Urea Nitrogen 17 7-18 MG/DL Creatinine 0.84 0.60-1.30 MG/DL Estimat Glomerular Filtration Rate > 60 BUN/Creatinine Ratio 20 Glucose Level 141 H 70-105 MG/DL Calcium Level 8.9 8.5-10.1 MG/DL Corrected Calcium 9.4 8.5-10.1 MG/DL Magnesium Level 1.5 L 1.8-2.4 MG/DL Total Bilirubin 0.2 0.1-1.0 MG/DL Aspartate Amino Transf (AST/SGOT) 44 H 5-34 U/L Alanine Aminotransferase (ALT/SGPT) 42 0-55 U/L Alkaline Phosphatase 70 40-136 U/L Troponin I < 0.028 <0.028 NG/ML B-Type Natriuretic Peptide 40.7 <100.0 PG/ML Total Protein 6.1 L 6.4-8.2 GM/DL Albumin 3.4 3.2-4.5 GM/DL TSH [place] Testing 0.82 0.35-4.94 UIU/ML Glucometer 173 H 70-110 MG/DL Urine Color YELLOW Urine Clarity CLEAR Urine pH 5 5-9 Urine Specific [place] 1.010 L 1.016-1.022 Urine Protein NEGATIVE NEGATIVE Urine Glucose (UA) NEGATIVE NEGATIVE Urine Ketones NEGATIVE NEGATIVE Urine Nitrite NEGATIVE NEGATIVE Urine Bilirubin NEGATIVE NEGATIVE Urine Urobilinogen NORMAL NORMAL MG/DL Urine Leukocyte Esterase NEGATIVE NEGATIVE Urine RBC (Auto) NEGATIVE NEGATIVE Urine RBC NONE /HPF Urine WBC RARE /HPF Urine Squamous Epithelial Cells RARE /HPF Urine Crystals NONE /LPF Urine Bacteria NEGATIVE /HPF Urine Casts NONE /LPF Urine Mucus NEGATIVE /LPF Urine Culture Indicated NO Lactic Acid Level 3.48 *H 0.50-2.00 MMOL/L Test 12/03/18 20:35 12/03/18 20:55 12/03/18 23:05 12/03/18 23:43 Range/Units Lactic Acid Level 4.90 *H 6.52 *H 0.50-2.00 MMOL/L Glucometer 164 H 302 H 70-110 MG/DL Test 12/04/18 01:00 12/04/18 03:40 12/04/18 05:00 12/04/18 08:39 Range/Units Lactic Acid Level 7.95 *H 9.99 *H 0.50-2.00 MMOL/L White Blood Count 7.4 4.3-11.0 10^3/uL Red Blood Count 4.48 4.35-5.85 10^6/uL Hemoglobin 12.6 11.5-16.0 G/DL Hematocrit 38 35-52 % Mean Corpuscular Volume 85 80-99 FL Mean Corpuscular Hemoglobin 28 25-34 PG Mean Corpuscular Hemoglobin Concent 33 32-36 G/DL Red Cell Distribution Width 15.8 H 10.0-14.5 % Platelet Count 218 130-400 10^3/uL Mean Platelet Volume 12.1 H 7.4-10.4 FL Neutrophils (%) (Auto) 91 H 42-75 % Lymphocytes (%) (Auto) 8 L 12-44 % Monocytes (%) (Auto) 1 0-12 % Eosinophils (%) (Auto) 0 0-10 % Basophils (%) (Auto) 0 0-10 % Neutrophils # (Auto) 6.7 1.8-7.8 X 10^3 Lymphocytes # (Auto) 0.6 L 1.0-4.0 X 10^3 Monocytes # (Auto) 0.0 0.0-1.0 X 10^3 Eosinophils # (Auto) 0.0 0.0-0.3 10^3/uL Basophils # (Auto) 0.0 0.0-0.1 10^3/uL Sodium Level 141 135-145 MMOL/L Potassium Level 3.1 L 3.6-5.0 MMOL/L Chloride Level 104 98-107 MMOL/L Carbon Dioxide Level 11 L 21-32 MMOL/L Anion Gap 26 H 5-14 MMOL/L Blood Urea Nitrogen 13 7-18 MG/DL Creatinine 0.95 0.60-1.30 MG/DL Estimat Glomerular Filtration Rate 58 BUN/Creatinine Ratio 14 Glucose Level 283 H 70-105 MG/DL Calcium Level 9.1 8.5-10.1 MG/DL Phosphorus Level 3.0 2.3-4.7 MG/DL Magnesium Level 2.4 1.8-2.4 MG/DL Total Bilirubin 0.3 0.1-1.0 MG/DL Aspartate Amino Transf (AST/SGOT) 39 H 5-34 U/L Alanine Aminotransferase (ALT/SGPT) 47 0-55 U/L Alkaline Phosphatase 91 40-136 U/L Total Protein 6.9 6.4-8.2 GM/DL Albumin 4.0 3.2-4.5 GM/DL Lipase 19 8-78 U/L Beta-Hydroxybutyrate (Chem panel) 0.27 0.00-0.27 MMOL/L Test 12/04/18 09:34 Range/Units Arterial Blood pH 7.44 H 7.37-7.43 Carboxyhemoglobin 1.8 0.5-2.5 % Micro Results Microbiology 12/03/18 Influenza Types A,B Antigen (ROMIE) - Final, Complete My Orders Orders - JOE COPPOLA DO Accucheck Stat ONCE (12/03/18 18:02) Saline Lock/Iv-Start (12/03/18 18:02) Ekg Tracing (12/03/18 18:02) Monitor-Rhythm Ecg Trace Only (12/03/18 18:02) BNP (12/03/18 18:02) Cbc With Automated Diff (12/03/18 18:02) Comprehensive Metabolic Panel (12/03/18 18:02) Lactic Acid Analyzer (12/03/18 18:02) Magnesium (12/03/18 18:02) Protime With Inr (12/03/18 18:02) Partial Thromboplastin Time (12/03/18 18:02) Thyroid Analyzer (12/03/18 18:02) Troponin I (12/03/18 18:02) Ua Culture If Indicated (12/03/18 18:02) Blood Culture (12/03/18 18:02) Influenza A And B Antigens (12/03/18 18:02) Ct Head Wo (12/03/18 18:02) Chest 1 View, Ap/Pa Only (12/03/18 18:02) Pelvis (12/03/18 18:02) Catheter(Urinary) Insert & Ass 03,15 (12/03/18 18:02) Labetalol Injection (Normodyne Injection (12/03/18 18:15) Manual Differential (12/03/18 18:04) Magnesium 1 Gm/100 Ml Ivpb (Magnesium Pool (12/03/18 19:00) Methylprednisolone Sod Succ (Solu-Medrol (12/03/18 19:15) Medications Given in ED Vital Signs/I&O 12/03/18 12/03/18 12/04/18 12/04/18 23:05 23:45 00:00 00:00 Temp 98.7 Pulse 83 86 86 Resp 20 16 18 B/P (MAP) 199/95 (129) 188/117 (140) 193/97 (129) Pulse Ox 98 97 97 100 O2 Delivery Room Air Room Air Room Air 12/04/18 12/04/18 12/04/18 12/04/18 00:15 00:16 00:30 01:00 Pulse 87 85 89 100 Resp 17 27 B/P (MAP) 200/99 (132) 214/110 (144) Pulse Ox 97 O2 Delivery Room Air Room Air 12/04/18 12/04/18 12/04/18 12/04/18 01:00 02:00 03:00 04:00 Pulse 92 96 101 98 Resp 17 15 16 19 B/P (MAP) 237/115 (155) 178/91 (120) 190/101 (130) 191/96 (127) Pulse Ox 97 97 97 O2 Delivery Room Air Room Air Room Air Room Air 12/04/18 12/04/18 12/04/18 12/04/18 04:00 04:00 05:00 06:00 Temp 98.4 Pulse 104 91 Resp 15 17 B/P (MAP) 235/117 (156) 179/91 (120) Pulse Ox 100 98 97 O2 Delivery Room Air Room Air Room Air 12/04/18 12/04/18 12/04/18 12/04/18 07:00 07:00 08:00 08:00 Pulse 99 106 100 Resp 17 15 B/P (MAP) 228/118 (154) 162/78 (106) Pulse Ox 97 96 100 O2 Delivery Room Air Room Air Room Air 12/04/18 12/04/18 12/04/18 08:00 09:00 10:00 Temp 97.1 Pulse 109 112 Resp 12 18 B/P (MAP) 170/85 (113) 190/91 (124) Pulse Ox 96 96 O2 Delivery Room Air Room Air 12/04/18 00:00 Intake Total 50 ml Balance 50 ml Capillary Refill : Less Than 3 Seconds Blood Pressure Mean: 143 Point of Care Testing Finger Stick Blood Glucose: 173 Progress Note : Progress Note NO DETERIORATION IN PT'S CONDITION DURING ER STAY ECG Initial ECG Impression Date: Dec 03, 2018 Initial ECG Impression Time: 18:10 Initial ECG Rate: 73 Initial ECG Rhythm: Normal Sinus Initial ECG Comparisson: Unchanged Diagnostic Imaging Comments CT HEAD--NO ACUTE PROCESS, CHRONIC DIFFUSE, ISCHEMIC CHANGES--PER RADIOLOGIST REPORT @ 1909 Reviewed: Reviewed by Me Departure Communication (Admissions) 1911--SPOKE WITH DR. GARCIA, HOSPITALIST, ACCEPTS PT FOR ADMIT. SHE IS FAMILIAR WITH PT. WILL START ON STEROIDS, SHE HAS SEEMED TO RESPOND TO THEM IN THE PAST, AND WITH FINDINGS ON MRI THAT ARE SUSPICIOUS FOR MS. Impression Primary Impression: Generalized weakness Additional Impressions: Hypertensive urgency Hypomagnesemia Insulin dependent diabetes mellitus MS LIKE SYMPTOMS Disposition: ADMITTED INPATIENT Condition: Stable Admissions Decision to Admit Reason: Admit from ER (General) Decision to Admit/Date: Dec 03, 2018 Time/Decision to Admit Time: 19:15 Departure-Patient Inst. Referrals: DECLAN SANTOS MD (PCP/Family) Primary Care Physician JOE COPPOLA DO Dec 03, 2018 19:11
[2018-12-03] MEDS ORDERED: methylPREDNISolone 125 MG (Solu-MEDROL) VIAL IVP ONE (19:15)
--- NOTE | 2018-12-03 19:25 | Diagnostic Imaging Report ---
INDICATION: Fall EXAMINATION: Chest 12/03/2018 FINDINGS: The cardiomediastinal silhouette is unremarkable. The pulmonary vasculature is within normal limits. The lungs and pleural spaces are clear. IMPRESSION: No evidence of an acute cardiopulmonary process. Dictated by: Dictated on workstation # [id number]
--- NOTE | 2018-12-03 19:54 | Diagnostic Imaging Report ---
INDICATION: Fall. EXAMINATION: Pelvis, 12/03/2018. FINDINGS: Examination of the pelvis in the supine projection fails to reveal evidence of fracture, dislocation or other osseous abnormality. IMPRESSION: Negative pelvis. Dictated by: Dictated on workstation # [id number]
--- NOTE | 2018-12-03 20:18 | NUR ---
EDMUND FELIX admitted to room 408-1, with an admitting diagnosis of generalized weakness, hypertensive urgency, hypomagnesemia and MS like symptoms, on 12/03/18 from the ER via hospital bed, accompanied by an ER staff member and her . EDMUND FELIX introduced to surroundings, call light, bed controls, phone, TV, temperature control, lights, meal times, smoking policy, visitor policy, side rail policy, bathrooms and showers. Patient Rights given to patient in the handbook. EDMUND FELIX verbalizes understanding that [facility] is not responsible for the loss or damage to any personal effects or valuables that are kept in the patients posession during their hospitalization. Plan of care is discussed and there are no questions at this time.
[2018-12-03] MEDS ORDERED: NS IV 1000 ML 1,000 ML IV SCH (20:30)
[2018-12-03] MEDS ORDERED: CATHETER FLUSH 10 ML SYR IV PRN (20:45)
--- NOTE | 2018-12-03 20:45 | NUR ---
This RN contacted Dr. Mcneal due to family wanting Xanax restarted. Patient normally takes Xanax 0.5mg TID PRN PO for anxiety. Dr. Mcneal orders for that to be restarted.
--- NOTE | 2018-12-03 20:56 | NUR ---
This RN called Dr. Mcneal in reference to a critical lactic acid of 4.9. Dr. Mcneal ordered to increase the normal saline from 75 mls/hr to 125 mls/hr. She would also like to have another lactic acid drawn in 2 hours with the reflux. All orders are repeated and confirmed. Addendum: 12/04/18 at 0045 by CRISTHIAN NUÑEZ RN Dr. Mcneal was also advised that patients blood pressure is 209/108 with a pulse of 77. Dr. Mcneal ordered to give Labetolol ordered by Dr. Aguilar.
[2018-12-03] MEDS ORDERED: inSUlin ASPART (NovoLOG) 1 UNIT/0.01 ML (CHARGE PER UNIT) SC SCH (21:00)
[2018-12-03] MEDS: NS IV 1000 ML 1,000 ML IV SCH (21:07)
[2018-12-03] MEDS: LABETALOL HCL 20 MG/4 ML VIAL IV PRN (21:08)
--- NOTE | 2018-12-03 21:34 | NUR ---
This RN called Dr. Mcneal to update her on patient's blood pressure. Blood pressure is 232/103 with a pulse of 84. Dr. Mcneal ordered Clonidine 0.2mg TID PO with a dose given now. Order is repeated and confirmed.
[2018-12-03] MEDS ORDERED: cloNIDine 0.2 MG (CATAPRES) TAB ONE (21:37)
[2018-12-03] MEDS: cloNIDine 0.2 MG (CATAPRES) TAB PO SCH (21:42)
[2018-12-03] MEDS: CATHETER FLUSH 10 ML SYR IV SCH (22:10)
--- NOTE | 2018-12-03 23:27 | NUR ---
This RN called Dr. Mcneal in reference to a critical lactic acid level of 6.52. Dr. Mcneal ordered to have the patient moved to ICU with e-ICU to manage. Order is repeated and confirmed.
[2018-12-04] VITALS (26 sets, daily range): BP systolic 119–237; BP diastolic 60–118
--- NOTE | 2018-12-04 00:10 | NUR ---
PT TRANSFERRED TO ICU 8 FROM 4TH FLOOR. REPORT GIVEN TO THIS RN FROM CAITLYN MORROW. PT ALERT AND ORIENTED, CALL LIGHT WITHIN REACH.
[2018-12-04] MEDS ORDERED: inSUlin ASPART (NovoLOG) 1 UNIT/0.01 ML (CHARGE PER UNIT) ONE (00:50)
[2018-12-04] MEDS: methylPREDNISolone 125 MG (Solu-MEDROL) VIAL IV SCH ×2 (00:58→05:18)
[2018-12-04] MEDS: inSUlin ASPART (NovoLOG) 1 UNIT/0.01 ML (CHARGE PER UNIT) SC SCH ×3 (00:58→18:03)
[2018-12-04] MEDS: hydrALAZINE (APESOLINE) 20 MG/ML VIAL IV PRN ×2 (01:00→07:02)
[2018-12-04] MEDS: CATHETER FLUSH 10 ML SYR IV SCH ×3 (05:09→20:40)
[2018-12-04] MEDS: POTASSIUM CL 10MEQ/50ML IVPB 50 ML IV SCH ×5 (05:09→11:44)
[2018-12-04] MEDS: KCL 20 MEQ TAB (K-DUR) PO SCH (05:10)
[2018-12-04] MEDS: MAGNESIUM 1 GM/100 ML IVPB 100 ML IV SCH (05:10)
[2018-12-04] MEDS: LABETALOL HCL 20 MG/4 ML VIAL IV PRN (05:20)
[2018-12-04 05:59] LABS: BASOPHILS % (AUTO) 0 % (0-10); EOSINOPHILS % (AUTO) 0 % (0-10); HEMATOCRIT 38 % (35-52); HEMOGLOBIN 12.6 G/DL (11.5-16.0); LYMPHOCYTES # (AUTO) 0.6 X 10^3 (1.0-4.0); LYMPHOCYTES % (AUTO) 8 % (12-44); MEAN CORPUSCULAR HEMOGLOBIN 28 PG (25-34); MEAN CORPUSCULAR HGB CONC 33 G/DL (32-36); MEAN CORPUSCULAR VOLUME 85 FL (80-99); MEAN PLATELET VOLUME 12.1 FL (7.4-10.4); MONOCYTES % (AUTO) 1 % (0-12); NEUTROPHILS # (AUTO) 6.7 X 10^3 (1.8-7.8); NEUTROPHILS % (AUTO) 91 % (42-75); PLATELET COUNT 218 10^3/uL (130-400); RED CELL DISTRIBUTION WIDTH 15.8 % (10.0-14.5); WHITE BLOOD COUNT 7.4 10^3/uL (4.3-11.0)
[2018-12-04 06:09] LABS: CALCIUM 9.1 MG/DL (8.5-10.1); CREATININE SERUM 0.95 MG/DL (0.60-1.30); MAGNESIUM 2.4 MG/DL (1.8-2.4); POTASSIUM 3.1 MMOL/L (3.6-5.0)
--- NOTE | 2018-12-04 06:45 | Pulmonary Consultation ---
History of Present Illness History of Present Illness Date of Consultation 12/04/18 06:40 Date of Admission Allergies and Home Medications Allergies Coded Allergies: canagliflozin (Verified Allergy, Severe, ANAPHYLAXIS, 07/22/15) iodine (Unverified Adverse Reaction, Severe, migraine headache, 07/11/10) lorazepam (Verified Adverse Reaction, Severe, ELEVATED BLOOD PRESSURE, ) zolpidem (Verified Adverse Reaction, Severe, SLEEP WALK, 07/22/15) codeine (Unverified Adverse Reaction, Mild, INCREASED ACTIVITY, 08/13/10) erythromycin base (Unverified Adverse Reaction, Mild, NAUSEA, 08/13/10) Heparin Analogues (Unverified Adverse Reaction, Unknown, 08/13/10) Home Medications Alprazolam 0.5 Mg Tablet, 0.5 MG PO TID PRN for ANXIETY Prescribed by: FAIZA JOLLEY on 11/02/18 1057 Amlodipine Besylate 5 Mg Tablet, 5 MG PO DAILY Prescribed by: FAIZA JOLLEY on 11/02/18 1057 Ascorbate Calcium 500 Mg Tablet, 500 MG PO 1200, (Reported) Aspirin 81 Mg Tablet.dr, 81 MG PO HS, (Reported) Cholecalciferol (Vitamin D3) 2,000 Unit Tab.chew, 1,000 UNIT PO DAILY, (Reported ) Clonidine HCl 0.1 Mg Tablet, 0.2 MG PO TID Prescribed by: FAIZA JOLLEY on 11/02/18 1057 Fluticasone Propionate 16 Gm [place].susp, 2 SPRAYS NS DAILY PRN for ALLERGIES/ CONGESTION, (Reported) Glyburide 5 Mg Tablet, 2.5 MG PO DAILY, (Reported) TAKES 1/2 (5MG) TABLET WITH BREAKFAST AND 1 (5MG) TABLET WITH SUPPER Glyburide 5 Mg Tablet, 5 MG PO 1800, (Reported) Hydrocortisone Valerate 15 Gm Cream..g., TP BID PRN for ITCHING, (Reported) Insulin Detemir 100 Unit/1 Ml Insuln.pen, 8 UNITS SC HS, (Reported) Lactobacillus Combination No.4 1 Each Capsule, 1 CAP PO DAILY, (Reported) Levomefolate/B6/B12/Algal Oil 1 Each Capsule, 1 CAP PO BID, (Reported) Losartan Potassium 50 Mg Tablet, 50 MG PO 1200, (Reported) Magnesium Citrate 100 Mg Tablet, 100 MG PO 1200, (Reported) Metformin HCl 500 Mg Tablet, 1,000 MG PO BID, (Reported) TAKES 2 (500MG) TABLETS Metoprolol Succinate 100 Mg Tab.er.24h, 50 MG PO BID, (Reported) TAKES 1/2 (100MG) TABLET Multivitamin with Minerals 1 Each Tablet, 1 TAB PO 1200, (Reported) Potassium Chloride 10 Meq Tablet.er, 10 MEQ PO DAILY, (Reported) Past Abrdjkb-Kkgszz-Ubdbgr Hx Patient Social History Alcohol Use: Denies Use Recreational Drug Use: No 2nd Hand Smoke Exposure: No Recent Foreign Travel: No Contact w/Someone Who Travel: No Recent Infectious Disease Expo: No Recent Hopitalizations: Yes ([facility] 6-8 weeks ago discharged) Physical Abuse: No Sexual Abuse: No Immunizations Up To Date Tetanus Booster (TDap): More than 5yrs Date of Pneumonia Vaccine: Aug 01, 2012 Date of Influenza Vaccine: Aug 26, 2017 Seasonal Allergies Seasonal Allergies: Yes Past Medical History Surgeries: Yes (thoracentesis) Appendectomy, Gallbladder, Hysterectomy, Pancreatic Respiratory: Yes (Thoracentesis) Cardiac: Yes High Cholesterol, Hypertension Neurological: Yes Headaches /Migraines, Multiple Sclerosis, Stroke, TIA 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 0.0oz. 51.795159hf; 19.6 BMI Method:Stated Exam Exam Vital Signs Date Time Temp Pulse Resp B/P (MAP) Pulse Ox O2 Delivery O2 Flow Rate FiO2 12/04/18 06:00 91 17 179/91 (120) 97 Room Air 12/04/18 05:00 104 15 235/117 (156) 98 Room Air 12/04/18 04:00 98.4 12/04/18 04:00 100 Room Air 12/04/18 04:00 98 19 191/96 (127) 97 Room Air 12/04/18 03:00 101 16 190/101 (130) 97 Room Air 12/04/18 02:00 96 15 178/91 (120) 97 Room Air 12/04/18 01:00 92 17 237/115 (155) Room Air 12/04/18 01:00 100 12/04/18 00:30 89 27 214/110 (144) Room Air 12/04/18 00:16 85 12/04/18 00:15 87 17 200/99 (132) 97 Room Air 12/04/18 00:00 100 Room Air 12/04/18 00:00 86 18 193/97 (129) 97 Room Air 12/03/18 23:45 98.7 86 16 188/117 (140) 97 Room Air 12/03/18 23:05 83 20 199/95 (129) 98 12/03/18 22:50 85 20 188/78 (114) 97 12/03/18 22:35 80 20 190/82 (118) 98 12/03/18 22:20 79 20 190/85 (120) 98 12/03/18 22:05 84 20 233/103 (146) 98 12/03/18 21:50 84 20 210/98 (135) 98 12/03/18 21:20 84 18 222/98 (139) 99 12/03/18 21:15 84 12/03/18 20:24 98.7 77 20 209/108 (141) 98 Room Air 12/03/18 20:18 Room Air 12/03/18 20:18 98.2 76 14 152/95 100 Room Air 12/03/18 20:11 98.2 76 14 152/95 (114) 100 12/03/18 17:50 98.2 76 14 215/108 (143) 98 I & O 12/04/18 07:00 Intake Total 280 ml Output Total 2350 ml Balance -2070 ml Height & Weight Height: 5'4.00" Weight: 114lbs. 0.0oz. 51.159317ez; 19.6 BMI Method:Stated Capillary Refill: Less Than 3 Seconds Results Lab Laboratory Tests 12/03/18 18:04 12/04/18 03:40 Assessment/Plan Assessment/Plan HTN Emergency -Add Cardene gtt Left sided weakness upon presentation severe Metabolic lactic acidosis -IVF -Check uds ROSSI MELENDEZ DO Dec 04, 2018 06:45
[2018-12-04] MEDS ORDERED: niCARdipine IV FOR DRIP 50 MG KIT ONE (06:50)
[2018-12-04] MEDS ORDERED: NS (IVPB) 250 ML ONE (06:51)
[2018-12-04] MEDS: niCARdipine IV 50 MG in NS (IVPB) 230 ML IV SCH ×3 (07:04→18:04)
[2018-12-04] MEDS: NS IV 1000 ML 1,000 ML IV SCH ×2 (07:07→20:40)
[2018-12-04 07:30] LABS: BILIRUBIN,TOTAL 0.3 MG/DL (0.1-1.0); TOTAL PROTEIN 6.9 GM/DL (6.4-8.2)
--- NOTE | 2018-12-04 07:49 | Diagnostic Imaging Report ---
INDICATION: Generalized weakness, shortness of air.. TECHNIQUE: Single view chest 6:47 AM. CORRELATION STUDY: 12/03/2018 FINDINGS: The heart size, mediastinal configuration and pulmonary vascularity are within normal limits. The lungs are clear with no consolidating infiltrate. There is no significant effusion or pneumothorax. Mild rightward curvature thoracic spine. IMPRESSION: 1. Negative for acute abnormality of the chest. Dictated by: Dictated on workstation # [id number]
[2018-12-04] MEDS: cloNIDine 0.2 MG (CATAPRES) TAB PO SCH ×3 (08:51→20:15)
--- NOTE | 2018-12-04 08:58 | History & Physical-Hospitalist ---
History of Present Illness HPI/Chief Complaint Pt is a 68yoCF known to me from recent inpatient admission and IRU consult who presented to the ER due to generalized weakness. She gives a garrulous account of why she is admitted to the hospital states that her IV hurts and she looks like she has been "attacked by a mole." With further pointed questions she is able to answer some ROS. She states she was discharged from IRU recently and was doing well at home but she fell and then developed significant weakness. She is unsure of the timeframe in which this happened. Per report from ER physician this was over the last day or two. She denies any fevers or cough. She states she had issues previously with her urine but has not needed a catheter at home. She is otherwise unable to provide much history. Source: patient Exam Limitations: clinical condition Date Seen 12/04/18 Time Seen by a Provider: 08:53 Attending Physician Nati Mcneal MD PCP Frank Goldsmith MD Referring Physician Date of Admission Dec 03, 2018 at 19:12 Home Medications & Allergies Home Medications Reviewed patient Home Medication Reconciliation performed by pharmacy medication reconciliations medical record technician and/or nursing. Patients Allergies have been reviewed. Allergies Allergies Coded Allergies canagliflozin (Verified Allergy, Severe, ANAPHYLAXIS, 07/22/15) iodine (Unverified Adverse Reaction, Severe, migraine headache, 07/11/10) lorazepam (Verified Adverse Reaction, Severe, ELEVATED BLOOD PRESSURE, 07/22/15 ) zolpidem (Verified Adverse Reaction, Severe, SLEEP WALK, 07/22/15) codeine (Unverified Adverse Reaction, Mild, INCREASED ACTIVITY, 08/13/10) erythromycin base (Unverified Adverse Reaction, Mild, NAUSEA, 08/13/10) Heparin Analogues (Unverified Adverse Reaction, Unknown, 08/13/10) Past Ukgavgz-Kwzzyt-Vuahnq Hx Past Med/Social Hx: Reviewed Nursing Past Med/Soc Hx Patient Social History Marrital Status: Alcohol Use: Denies Use Recreational Drug Use: No 2nd Hand Smoke Exposure: No Physical Abuse Screen: No Sexual Abuse: No Recent Foreign Travel: No Contact w/other who traveled: No Recent Hopitalizations: Yes ([facility] 6-8 weeks ago discharged) Recent Infectious Disease Expo: No Immunizations Up To Date Tetanus Booster (TDap): More than 5yrs Date of Pneumonia Vaccine: Aug 01, 2012 Date of Influenza Vaccine: Aug 26, 2017 Seasonal Allergies Seasonal Allergies: Yes Past Medical History Surgeries: Appendectomy, Gallbladder, Hysterectomy, Pancreatic Cardiac: High Cholesterol, Hypertension Neurological: Headaches /Migraines, Multiple Sclerosis, Stroke, TIA 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: No Hysterectomy, Menopausal Genitourinary: Bladder Infection Gastrointestinal: Chronic Constipation, Pancreatitis Endocrine: Diabetes, Insulin dep Psychosocial: Anxiety, Depression History of Blood Disorders: No Adverse Reaction to Blood Torres: No Family History Reviewed Nursing Family Hx Arthritis 19 MOTHER Cardiovascular disease 19 FATHER Heart Disease, CVA Review of Systems ROS-Unable to Obtain: limited due to clinical condition Constitutional: No chills, No fever; weakness Cardiovascular: No chest pain Psychiatric/Neurological: Anxiety; Denies Numbness Physical Exam Physical Exam Vital Signs Vital Signs - First Documented 12/03/18 17:50 Temp 98.2 Pulse 76 Resp 14 B/P (MAP) 215/108 (143) Pulse Ox 98 Capillary Refill : Less Than 3 Seconds Height, Weight, BMI Height: 5'4.00" Weight: 114lbs. 0.0oz. 51.694083ij; 19.6 BMI Method:Stated General Appearance: No Apparent Distress, Chronically ill HEENT: PERRL/EOMI, Moist Mucous Membranes; No Scleral Icterus (L), No Scleral Icterus (R) Neck: No Lymphadenopathy (L), No Lymphadenopathy (R) Respiratory: Lungs Clear, No Accessory Muscle Use, No Respiratory Distress Cardiovascular: No JVD, No Murmur, Irregularly Irregular Gastrointestinal: Normal Bowel Sounds, Non Tender, Soft Genital/Rectal: Other (campa in place) Extremity: Normal Capillary Refill, Non Tender, No Calf Tenderness, No Pedal Edema; No Swelling Neurologic/Psychiatric: Alert, Other (oriented to major details) Results Results/Procedures Labs Laboratory Tests 12/03/18 18:04 12/04/18 03:40 12/05/18 03:00 Patient resulted labs reviewed. Imaging: Reviewed Imaging Report Assessment/Plan Admission Diagnosis HTN Emergency Lactic Acidosis Admission Status: Inpatient Order (span 2 midnights) Reason for Inpatient Admission: needs cardene gtt, rising lactic acid, concern for MS flare as well, complex medical management Critical Care Critically Ill Patient Diagnosis/Problems Diagnosis/Problems (1) High anion gap metabolic acidosis Assessment & Plan: Lactic acidosis noted and rising despite IVF Incredibly hypertensive so hesitant to due high volume fluids Unclear etiology tox screen pending Will cover with abx though no indication that this is sepsis (UA and CXR clear, no leukocytosis) Takes Metformin which may be contributing (2) Hypertensive emergency Assessment & Plan: Continue Cardene gtt Resume home medications to avoid rebound hypertension fro clonidine (3) Multiple sclerosis Status: Chronic Assessment & Plan: Continue SOlu medrol ? MS exacerbation MRI ordered (4) Hypomagnesemia Assessment & Plan: Replaced overnight Now resolved, trend (5) Insulin dependent diabetes mellitus Status: Chronic Assessment & Plan: SSI for now NPO so hold prandial insulin MOnitor blood sugars with solu medrol use Clinical Quality Measures DVT/VTE Risk/Contraindication: Risk Factor Score Per Nursin RFS Level Per Nursing on Admit: 4+=Very High NATI MCNEAL MD Dec 04, 2018 08:58
[2018-12-04] MEDS ORDERED: VANCOMYCIN INJECTION 0.1 MG in NS (IVPB) 250 ML IV SCH (09:00)
[2018-12-04] MEDS ORDERED: PIPERACILLIN/TAZO 4.5 GM/NS 100 ML IV NR ×2 (09:15)
[2018-12-04 09:46] LABS: ABG PH 7.44 (7.37-7.43); CARBOXYHEMOGLOBIN 1.8 % (0.5-2.5)
--- NOTE | 2018-12-04 09:54 | NUR ---
CR 0.95; CR CL ~40; WT 51 KG; VANCO 1250 MG IV BOLUS, THEN 1000 MG IV Q24H; TROUGH AFTER 3RD DOSE
[2018-12-04] MEDS ORDERED: VANCOMYCIN 1250 MG/NS 250 ML IVPB IV SCH ×2 (10:00)
[2018-12-04] MEDS ORDERED: methylPREDNISolone 125 MG (Solu-MEDROL) VIAL IV SCH (12:00)
[2018-12-04 12:23] LABS: AMPHETAMINE SCREEN, URINE NEGATIVE (NEGATIVE); BARBITURATE SCREEN URINE NEGATIVE (NEGATIVE); BENZODIAZEPINES SCREEN URINE POSITIVE (NEGATIVE); CANNABINOID SCREEN, URINE NEGATIVE (NEGATIVE); COCAINE SCREEN URINE NEGATIVE (NEGATIVE); METHADONE STAT NEGATIVE (NEGATIVE); METHAMPHETAMINE SCREEN URINE S NEGATIVE (NEGATIVE); OPIATE SCREEN URINE NEGATIVE (NEGATIVE); OXYCODONE STAT NEGATIVE (NEGATIVE); PROPOXYPHENE STAT NEGATIVE (NEGATIVE); TRICYCLIC ANTIDEPRESSANTS SCRE NEGATIVE (NEGATIVE)
[2018-12-04] MEDS: methylPREDNISolone 40 MG/ML (Solu-MEDROL) VIAL IV SCH ×2 (13:01→18:03)
[2018-12-04] MEDS: PIPERACILLIN SODIUM/TAZOBACTAM 4.5 GM in NS (IVPB) 100 ML IV SCH (16:06)
[2018-12-05] VITALS (20 sets, daily range): BP systolic 121–171; BP diastolic 60–91
[2018-12-05] MEDS: methylPREDNISolone 40 MG/ML (Solu-MEDROL) VIAL IV SCH ×4 (00:05→17:48)
[2018-12-05] MEDS: PIPERACILLIN SODIUM/TAZOBACTAM 4.5 GM in NS (IVPB) 100 ML IV SCH ×3 (00:05→15:20)
[2018-12-05] MEDS: inSUlin ASPART (NovoLOG) 1 UNIT/0.01 ML (CHARGE PER UNIT) SC SCH ×4 (00:13→17:50)
[2018-12-05] MEDS: LABETALOL HCL 20 MG/4 ML VIAL IV PRN (00:56)
[2018-12-05] MEDS: ALPRAZolam 0.5 MG (XANAX) TAB PO PRN (00:57)
[2018-12-05] MEDS: hydrALAZINE (APESOLINE) 20 MG/ML VIAL IV PRN (02:41)
[2018-12-05 03:10] LABS: BASOPHILS % (AUTO) 0 % (0-10); EOSINOPHILS % (AUTO) 0 % (0-10); HEMATOCRIT 32 % (35-52); HEMOGLOBIN 10.7 G/DL (11.5-16.0); LYMPHOCYTES % (AUTO) 7 % (12-44); MEAN CORPUSCULAR HEMOGLOBIN 28 PG (25-34); MEAN CORPUSCULAR HGB CONC 33 G/DL (32-36); MEAN CORPUSCULAR VOLUME 85 FL (80-99); MEAN PLATELET VOLUME 11.7 FL (7.4-10.4); MONOCYTES # (AUTO) 0.5 X 10^3 (0.0-1.0); MONOCYTES % (AUTO) 3 % (0-12); NEUTROPHILS # (AUTO) 12.8 X 10^3 (1.8-7.8); NEUTROPHILS % (AUTO) 89 % (42-75); PLATELET COUNT 210 10^3/uL (130-400); RED CELL DISTRIBUTION WIDTH 16.5 % (10.0-14.5); WHITE BLOOD COUNT 14.3 10^3/uL (4.3-11.0)
[2018-12-05 03:27] LABS: BUN/CREATININE RATIO 19; CALCIUM 8.7 MG/DL (8.5-10.1); CARBON DIOXIDE 18 MMOL/L (21-32); CHLORIDE 112 MMOL/L (98-107); CREATININE SERUM 0.83 MG/DL (0.60-1.30); GFR ESTIMATED > 60; GLUCOSE 231 MG/DL (70-105); MAGNESIUM 1.5 MG/DL (1.8-2.4); PHOSPHORUS 2.4 MG/DL (2.3-4.7); POTASSIUM 3.1 MMOL/L (3.6-5.0); SODIUM 145 MMOL/L (135-145)
[2018-12-05 03:48] LABS: LYMPHOCYTES % (MANUAL) 9 %; MONOCYTES % (MANUAL) 1 %; NEUTROPHILS % (MANUAL) 90 %
[2018-12-05] MEDS: POTASSIUM CL 10MEQ/50ML IVPB 50 ML IV SCH ×7 (04:18→09:26)
[2018-12-05] MEDS: CATHETER FLUSH 10 ML SYR IV SCH ×2 (04:19→14:59)
[2018-12-05] MEDS: MAGNESIUM 1 GM/100 ML IVPB 100 ML IV SCH ×3 (04:19→05:33)
[2018-12-05] MEDS: KCL 20 MEQ TAB (K-DUR) PO SCH (04:19)
[2018-12-05 05:39] LABS: ABG BASE EXCESS -2.5 MMOL/L (-2.5-2.5); ABG OXYGEN SATURATION 98 % (94-100); ABG PCO2 30 MMHG (35-45); ABG PH 7.46 (7.37-7.43); ABG PO2 88 MMHG (79-93); ABG TCO2 21.6 MMOL/L (21.0-31.0)
[2018-12-05 05:42] LABS: ALLENS TEST POSITIVE; INSPIRED O2 N; PATIENT TEMP 98.7; VENTILATOR NO
[2018-12-05] MEDS ORDERED: KCL 20 MEQ POWDER FOR ORAL SOLUTION PO ONE (06:00)
--- NOTE | 2018-12-05 06:11 | Pulmonary Progress Note ---
Subjective Time Seen by a Provider: 06:15 Subjective/Events-last exam C/o weakness and right hand edema Sepsis Event Evaluation Height, Weight, BMI Height: 5'4.00" Weight: 114lbs. 0.0oz. 51.696476yc; 19.6 BMI Method:Stated Focused Exam Lactate Level 12/04/18 12:13: Lactic Acid Level 6.92*H 12/04/18 14:54: Lactic Acid Level 5.85*H 12/05/18 03:00: Lactic Acid Level 1.95 Lactic Acid Level Laboratory Tests Test 12/05/18 03:00 Lactic Acid Level 1.95 MMOL/L (0.50-2.00) Exam Exam Vital Signs Date Time Temp Pulse Resp B/P (MAP) Pulse Ox O2 Delivery O2 Flow Rate FiO2 12/05/18 04:00 90 16 127/71 (89) 97 Room Air 12/05/18 04:00 98.5 12/05/18 03:00 94 18 146/74 (98) 97 Room Air 12/05/18 02:00 81 14 129/70 (89) 100 Room Air 12/05/18 01:00 88 14 131/71 (91) 98 Room Air 12/05/18 01:00 88 12/05/18 00:17 84 14 129/69 (89) 98 Room Air 12/05/18 00:16 98.6 12/05/18 00:00 100 Room Air 12/04/18 23:00 85 13 128/72 (90) 98 Room Air 12/04/18 22:00 93 23 125/66 (85) 99 Room Air 12/04/18 21:00 98 15 132/75 (94) 100 Room Air 12/04/18 20:00 94 18 151/77 (101) 99 Room Air 12/04/18 20:00 100 Room Air 12/04/18 19:00 96 12/04/18 19:00 95 19 155/79 (104) 99 Room Air 12/04/18 19:00 98.6 12/04/18 18:00 99 22 155/78 (103) 99 Room Air 12/04/18 17:00 93 18 133/60 (84) 96 Room Air 12/04/18 16:08 98.1 12/04/18 16:00 102 15 146/78 (100) 97 Room Air 12/04/18 16:00 100 Room Air 12/04/18 15:00 107 12 169/82 (111) 97 Room Air 12/04/18 14:00 112 24 170/85 (113) 98 Room Air 12/04/18 13:00 98.9 12/04/18 13:00 106 12/04/18 13:00 106 11 163/87 (112) 97 Room Air 12/04/18 12:00 106 17 119/71 (87) 96 Room Air 12/04/18 12:00 100 Room Air 12/04/18 11:00 106 18 142/70 (94) 97 Room Air 12/04/18 10:00 112 18 190/91 (124) 96 Room Air 12/04/18 09:00 109 12 170/85 (113) 96 Room Air 12/04/18 08:00 97.1 12/04/18 08:00 100 Room Air 12/04/18 08:00 100 15 162/78 (106) 96 Room Air 12/04/18 07:00 106 17 228/118 (154) 97 Room Air 12/04/18 07:00 99 I & O 12/05/18 07:00 Intake Total 1922.5 ml Output Total 1725 ml Balance 197.5 ml Height & Weight Height: 5'4.00" Weight: 114lbs. 0.0oz. 51.759712gw; 19.6 BMI Method:Stated General Appearance: Other (LETHARGIC, GENERALIZED WEAKNESS, VOICE QUIET AND SLOW. NO DISTRESS. ) HEENT: PERRL/EOMI Neck: Normal Inspection Respiratory: Normal Breath Sounds, No Accessory Muscle Use, No Respiratory Distress Cardiovascular: Regular Rate, Rhythm, No Edema, No JVD, No Murmur, Normal Peripheral Pulses Capillary Refill: Less Than 3 Seconds Extremity: Normal Inspection, No Pedal Edema Neurologic/Psychiatric: Alert, Oriented x3, No Motor/Sensory Deficits, hand carver II- XII Norm as Tested Skin: Warm/Dry, Pallor Results Lab Laboratory Tests 12/03/18 18:04 12/04/18 03:40 12/05/18 03:00 Assessment/Plan Assessment/Plan HTN Emergency - now improved -Off Cardene gtt since 2229 -Clonidine -PRN Labetalol, and hydralazine MS -Solumedrol currently 40 Q6 Right hand edema -Check doppler of right arm Hypokalemia, hypomag -replace Leukocytosis r/o infection - probably from steroids -Lyons cultures pending -Continue Vanco and Zosyn Anemia -Monitor -Check occult stools Generalized weakness -Pt/ot -D/C lokesh severe Metabolic lactic acidosis - improved -IVF -Check uds IDDM -SSI -Stop Metformin ROSSI JOSHI DO Dec 05, 2018 06:11
--- NOTE | 2018-12-05 07:23 | Diagnostic Imaging Report ---
INDICATION: Dyspnea. Portable upright AP view of the chest is obtained with comparison made study of 12/04/2018. FINDINGS: Heart size and pulmonary vascularity are within normal limits, and the lungs are clear, bilaterally. IMPRESSION: Unremarkable chest. Dictated by: Dictated on workstation # [id number]
[2018-12-05] MEDS: lisINopril 20 MG (PRINIVIL) TABLET PO SCH (08:21)
[2018-12-05] MEDS: cloNIDine 0.2 MG (CATAPRES) TAB PO SCH ×3 (08:21→21:02)
[2018-12-05] MEDS: VANCOMYCIN 1 GM/NS 250 ML IVPB IV SCH ×2 (09:26)
[2018-12-05] MEDS: NS IV 1000 ML 1,000 ML IV SCH (09:26)
--- NOTE | 2018-12-05 10:21 | Diagnostic Imaging Report ---
INDICATION: Right arm swelling. FINDINGS: There is no evidence of right upper extremity DVT. Right internal jugular vein as well as the right subclavian, axillary and brachial veins appear patent. Basilic and cephalic veins were not visualized. Radial and ulnar veins are patent. There is no fluid collection or mass. IMPRESSION: No evidence of right upper extremity DVT. Dictated by: Dictated on workstation # [id number]
--- NOTE | 2018-12-05 11:02 | ST Dysphagia Evaluation ---
Speech Evaluation-General Medical Diagnosis Lactic Acidosis Onset Date: Dec 02, 2018 Therapy Diagnosis Therapy Diagnosis: Oropharyngeal Dysphagia Precautions Precautions/Isolations: Fall Prevention, Standard Precautions Medical History Pertinent Medical History: Atrial Fib, CVA, DM, HTN, Neuropathy Social History Home: Single Level Current Living Status: Spouse Speech PLF/Current-Dysphagia Prior Level of Function Patient lives at home with her . Prior to the hospital admit she reports she ate whatever she wanted without any trouble. Subjective Patient was compliant with clinical requests during the Bedside Dysphagia Evaluation. Cognitive Status Patient Orientation: Place, Situation Oral Motor Skills Dentition: Natural Patient has been NPO pending the Bedside Dysphagia Evaluation. Oral Expression Ability: No Impairment Face Facial Symmetry: Symmetrical Oral-Facial Assessment Oral-Facial Dentition: Normal Labial Seal Description: Weak Smile: Reduced ROM Puff Cheeks: Reduced Strength Lingual Protrusion: Normal Lingual ROM: Normal Lingual Strength: Normal Productive Cough: No Productive Throat Clear: No Dysphagia Evaluation Consistencies Presented: Regular, Thin Liquid, Mechanical Soft, Pureed No oral motor or bolus management difficulties noted. Swallowing Precautions: Alternate Liquids/Solids, Liquids from Straw, Small Bites and Sips, Sitting Upright 90 Degrees, Sitting 90 Degrees 30 Post Intake Dysphagia Evaluation Summary She was recently discharged from the ARU where she was for a lengthy stay. Since her return home she was receiving therapy via home health services. She reportedly became very weak and her leg gave out. She was brought to the ED by her . She was admitted to the ICU at that time and was tested to have high levels of lactic acid. Patient was evaluated today for assessment of the least restrictive diet level. Patient was compliant during the evaluation with regular diet level and thin liquids determined to be the LRD. Barriers to Learning Patient is weak. Speech-Plan Patient/Family Goals Patient/Family Goals: Patient will return home with her upon hospital discharge. Treatment Plan Speech Therapy Treatment Plan: Discontinue ST Patient is not recommended for skilled ST therapy at this time. Treatment Duration: Dec 05, 2018 Frequency: 1 time per week Estimated Hrs Per Day: .25 hour per day Rehab Potential: Fair Barriers to Learning: Patient is very weak. Pt/Family Agrees to Plan: Yes Safety Risks/Education Teaching Recipient: Patient, Significant Other Teaching Methods: Discussion Response to Teaching: Verbalize Understanding Education Topics Provided: Safety of oral intake. Time Speech Therapy Time In: 10:30 Speech Therapy Time Out: 10:45 Total Billed Time: 15 Billed Treatment Time 1, PAULETTE HAILE Hernández Dec 05, 2018 11:02
[2018-12-05] MEDS ORDERED: FLU QUADRIvalent (5+ YOA) 2018-2019 (AFLURIA) 0.5 ML IM ONE (11:15)
--- NOTE | 2018-12-05 12:03 | Physical Therapy Evaluation ---
PT Evaluation-General Medical Diagnosis Admission Date Dec 03, 2018 at 19:12 Medical Diagnosis: Lactic Acidosis Onset Date: Dec 02, 2018 Therapy Diagnosis Therapy Diagnosis: Weakness, decreased mobility, decreased activity tolerance Height/Weight Height (Feet): 5 Height (Inches): 4.00 Weight (Pounds): 129 Weight (Ounces): 5.0 Precautions Precautions/Isolations: Fall Prevention, Standard Precautions Weight Bear Status Right Lower Extremity: Right Full Weight Bearing Left Lower Extremity: Left Full Weight Bearing Referral Physician: Deepak Gaspar DO Reason for Referral: Evaluation/Treatment Medical History Pertinent Medical History: Atrial Fib, CVA, DM, HTN, Neuropathy Additional Medical History MS Current History ED via EMS, L side pain with weakness and fell into recliner while using walker with spouse. Reviewed History: Yes Social History Home: Single Level Current Living Status: Spouse Entry Into Home: Level Entry Prior/Core FIM Prior Level of Function Therapy Code Descriptions/Definitions Functional [place] Measure: 0=Not Assessed/NA 4=Minimal Assistance 1=Total Assistance 5=Supervision or Setup 2=Maximal Assistance 6=Modified [place] 3=Moderate Assistance 7=Complete [place] Therapy Quality Codes: 6 Independent with activity with or without an assistive device 5 Patient requires set up or clean up by helper. Patient completes activity by themselves 4 Supervision or touching assist (CGA). [place] provide cues , steadying assist 3 The helper provides less than half the effort to complete the activity 2 The helper provides more than half the effort to complete the activity 1 Dependent. The helper does all the effort to complete an activity 7 Patient refused to complete or attempt activity 9 The patient did not perform the activity before the current illness or injury 88 Not attempted due to Medical conditions or safety concerns Functional Abilities and Goals: Independent: Patient completed the activities by him/herself, with or without an assistive device, with no assistance from a helper. Needed Some Help: Patient needed partial assistance from another person to complete activities. Dependent: A helper completed the activities for the patient. Unknown: Not Applicable: Bed Mobility: 3 Transfers (B,C,W/C) (FIM): 4 Gait: 4 Indoor Mobility (Ambulation): Needed Some Help Stairs: Needed Some Help Prior Devices Use: Manual wheelchair, Walker Prior Device Use: FWW PT Evaluation-Current Subjective Pt in bed and OT was currently in room with pt. Pt agreed to PT. Pain Numeric Pain Scale: 0-No Pain Location: No Pain Reported Pt/Family Goals Pt to return home Objective Patient Orientation: Person Attachments: Oxygen, Carson Catheter, IV ROM/Strength ROM Lower Extremities Not formally tested. Strength Lower Extremities Not formally tested. Pt was able to stand with mod A. Integumentary/Posture Bowel Incontinence: No Bladder Incontinence: Carson Cath Sensory Vision: Wears Glasses Hearing: Functional Sensation Right Lower Extremit: Intact Sensation Left Lower Extremity: Intact Transfers Therapy Code Descriptions/Definitions Functional [place] Measure: 0=Not Assessed/NA 4=Minimal Assistance 1=Total Assistance 5=Supervision or Setup 2=Maximal Assistance 6=Modified [place] 3=Moderate Assistance 7=Complete [place] Transfers (B, C, W/C) (FIM): 1 Scootin Supine to/from Sit: 1 Sit to/from Stand: 2 Gait Mode of Locomotion: Both Anticipated Mode of Locomotion: Both Gait (FIM): 0 Distance (FIM): 0=does not occure Gait Level of Assist: 2 Gait Persons Needed: 1 Gait Assistive Device: None Comments/Gait Description Pt attempted side stepping along bed but was only able to move inches due to weakness. Balance Sitting Static: Poor Sitting Dynamic: Poor Standing Static: Poor Standing Dynamic: Poor Assessment/Needs Pt required dependent to max A x1-2 with all bed mobility. Pt required mod A to maintain sitting balance on EOB. Pt attempted side stepping with max A and was only able to move inches. Pt sit<>stand transfer was max A. Pt is now in bed with all needs met and in room Rehab Potential: Poor Post Rehab Potential-Barriers: Co-morbidities PT Short Term Goals Short Term Goals Time Frame: Dec 12, 2018 Transfers (B,C,W/C) (FIM): 3 Gait (FIM): 1 Distance (FIM): 1=up to 49 ft Gait Distance Comment: 10' Gait Level of Assist: 3 Gait Assistive Device: FWW PT Plan Problem List Problem List: Activity Tolerance, Functional Strength, Safety, Balance, Gait, Transfer, Bed Mobility, ROM Treatment/Plan Treatment Plan: Continue Plan of Care Treatment Plan: Bed Mobility, Education, Functional Activity Shiv, Functional Strength, Gait, Safety, Therapeutic Exercise, Transfers Treatment Duration: Dec 12, 2018 Frequency: 6 times per week Estimated Hrs Per Day: .25 hour per day Patient and/or Family Agrees t: Yes Safety Risks/Education Patient Education: Gait Training, Transfer Techniques, Correct Positioning, Safety Issues Teaching Recipient: Patient, Family Teaching Methods: Demonstration, Discussion Discharge Recommendations Therapy D/C Recommendations: Home w/ Family Support Time/GCodes Time In: 1101 Time Out: 1111 Total Billed Treatment Time: 10 Total Billed Treatment 1 visit EVmodC 10 min SOPHIA ROSARIO PT Dec 05, 2018 12:03
--- NOTE | 2018-12-05 13:31 | Occupational Therapy Eval ---
OT Evaluation-General/PLF Medical Diagnosis Admission Date Dec 03, 2018 at 19:12 Medical Diagnosis: Lactic Acidosis Onset Date: Dec 02, 2018 Therapy Diagnosis Therapy Diagnosis: Weakness, decreased ADL skills Height/Weight Height (Feet): 5 Height (Inches): 4.00 Weight (Pounds): 129 Weight (Ounces): 5.0 Precautions Precautions/Isolations: Fall Prevention, Standard Precautions Safety Interventions: None Weight Bear Status Weight Bearing Restriction: Weight Bearing/Tolerated Referral Physician: Deepak Gaspar DO Referral Reason: Activity Tolerance, Self Care, Evaluation/Treatment, Strengthening/ROM Medical History Pertinent Medical History: Atrial Fib, CVA, DM, HTN, Neuropathy Additional Medical History Hysterectomy, MS, stroke Current History Pt. recently was on IRF unit. Went home with spouse. Was doing well and then fell. Became significantly weak. Came to ER. Found to have lactic acidosis. Reviewed History: Yes Social History Home: Single Level Current Living Status: Spouse Entry Into Home: Level Entry ADL-Prior Level of Function Therapy Code Descriptions/Definitions Functional [place] Measure: 0=Not Assessed/NA 4=Minimal Assistance 1=Total Assistance 5=Supervision or Setup 2=Maximal Assistance 6=Modified [place] 3=Moderate Assistance 7=Complete [place] Therapy Quality Codes: 6 Independent with activity with or without an assistive device 5 Patient requires set up or clean up by helper. Patient completes activity by themselves 4 Supervision or touching assist (CGA). [place]ot provide cues , steadying assist 3 The helper provides less than half the effort to complete the activity 2 The helper provides more than half the effort to complete the activity 1 Dependent. The helper does all the effort to complete an activity 7 Patient refused to complete or attempt activity 9 The patient did not perform the activity before the current illness or injury 88 Not attempted due to Medical conditions or safety concerns Functional Abilities and Goals: Independent: Patient completed the activities by him/herself, with or without an assistive device, with no assistance from a helper. Needed Some Help: Patient needed partial assistance from another person to complete activities. Dependent: A helper completed the activities for the patient. Unknown: Not Applicable: ADL PLOF Comments Pt. had a bath aide 2 times per week. Was able to ambulate with walker if someone was with her. Pt. was receiving home health PT. Self Care: Needed Some Help Functional Cognition: Needed Some Help DME/Equipment: Bedside Commode, Grab Bars, Tub/Shower DME/Equipment Comments Pt. has a gait belt, walker, and wheelchair. Drive Self: Yes OT Current Status Subjective No pain reported. Pt. requires some re-direction. Appearance Pt. in bed. Flat affect but alert. Spouse in room. Mental Status/Objective Patient Orientation: Person Attachments: Carson Catheter, IV Current Hand Dominance: Right Upper Extremity ROM Pt. is able to raise bilateral shoulders to approximately 45 degrees in bed. Limited ROM in bilateral hands. Both hands very weak. Right hand red in appearance and swollen. Spouse and physician aware. Upper Extremity Coordination Impaired. ADL-Treatment Therapy Code Descriptions/Definitions Functional [place] Measure: 0=Not Assessed/NA 4=Minimal Assistance 1=Total Assistance 5=Supervision or Setup 2=Maximal Assistance 6=Modified [place] 3=Moderate Assistance 7=Complete [place] Therapy Quality Codes: 6 Independent with activity with or without an assistive device 5 Patient requires set up or clean up by helper. Patient completes activity by themselves 4 Supervision or touching assist (CGA). Patriot provide cues , steadying assist 3 The helper provides less than half the effort to complete the activity 2 The helper provides more than half the effort to complete the activity 1 Dependent. The helper does all the effort to complete an activity 7 Patient refused to complete or attempt activity 9 The patient did not perform the activity before the current illness or injury 88 Not attempted due to Medical conditions or safety concerns Lower Body Dressing (FIM): 1 Transfers (B, C, W/C) (FIM): 1 Co-treated with PT due to level of skilled care required. Pt. required max x 2 for supine-sit. Unable to initiate the transfer with max cues. Once sitting on side of bed, required max assist at all times for sitting balance. OT initiated ADL skills while PT focused on balance on side of bed. Pt. dependent to don slipper socks. Stood with max assist with person in front of her. Cued to take side steps. Pt. unable to do this toward HOB, so OT/PT facilitated weight shift in stance and off loaded foot that needed to move. Pt. able to take several steps toward HOB and sit down. Dependent assist for sit-supine, positioning, and bed mobility. All needs met. Education OT Patient Education: Correct positioning, Modified ADL techniques, Progress toward Goal/Update tx plan, Purpose of tx/functional activities, Reviewed precautions, Rehab process, Transfer techniques Teaching Recipient: Patient Teaching Methods: Demonstration, Discussion Response to Teaching: Verbalize Understanding, Return Demonstration OT Short Term Goals Short Term Goals Time Frame: Dec 12, 2018 Eating(FIM): 5 Grooming(FIM): 4 Upper Body Dressing(FIM): 3 Lower Body Dressing(FIM): 3 Toileting(FIM): 3 Transfers (B,C,W/C) (FIM): 3 Toilet/Commode Transfer(FIM): 3 Additional Short Term Goals: 1-Demonstrate ADL Tasks, 2-Verbalize Understanding , 3-ImproveStrength/Shiv 1=Demonstrate adherence to instructed precautions during ADL tasks. 2=Patient will verbalize/demonstrate understanding of assistive devices/ modifications for ADL. 3=Patient will improve strength/tolerance for activity to enable patient to perform ADL's. OT [employer] Goals [employer] Goals Time Frame: Dec 26, 2018 Eating (FIM): 5 Grooming(FIM): 5 Upper Body Dressing(FIM): 4 Lower Body Dressing(FIM): 4 Toileting(FIM): 4 Transfers (B,C,W/C) (FIM): 4 Toilet/Commode Transfer(FIM): 4 Additional Goals: 1-Demonstrate ADL Tasks, 2-Verbalize Understanding, 3- ImproveStrength/Shiv 1=Demonstrate adherence to instructed precautions during ADL tasks. 2=Patient will verbalize/demonstrate understanding of assistive devices/ modifications for ADL. 3=Patient will improve strength/tolerance for activity to enable patient to perform ADL's. OT Education/Plan Problem List/Assessment Assessment: Decreased Activ Tolerance, Decreased UE Strength, Dependent Transfers, Impaired Bed Mobility, Impaired Cognition, Impaired Coordination, Impaired Funct Balance, Impaired I ADL's, Impaired Self-Care Skills, Restricted Funct UE ROM Discharge Recommendations Plan/Recommendations: Continue POC Therapy D/C Recommendations: 24 hr Supervision Treatment Plan/Plan of Care Treatment,Training & Education: Yes Patient would benefit from OT for education, treatment and training to promote independence in ADL's, mobility, safety and/or upper extremity function for ADL' s. Plan of Care: ADL Retraining, Functional Mobility, UE Funct Exercise/Act Treatment Duration: Dec 26, 2018 Frequency: 5 times per week Estimated Hrs Per Day: .25 hour per day Agreement: Yes Rehab Potential: Fair Time/GCodes Start Time: 10:50 Stop Time: 11:15 Total Time Billed (hr/min): 25 Billed Treatment Time 1, LOIS CISNEROS OT Dec 05, 2018 13:31
--- NOTE | 2018-12-05 15:05 | Progress Note-Hospitalist ---
Progress Note Progress Notes/Assess & Plan Date Seen 12/05/18 Time Seen by Provider: 14:30 Assessment & Plan Patient is a 68-year-old white female. I have known her for many years and through him have been introduced to her. She has had symptoms for several years consistent and highly suggestive of MS although no absolute diagnosis has been made. She had undergone inpatient rehabilitation, once at [place] and recently for nearly a month at the [facility]. She had a fall at home and seemed to decompensate and was brought to the emergency room. During her workup there she was found to have a lactic acid of 10. No evidence of sepsis has been found. She does take metformin for her diabetes and this may be the factor. Physical exam: The patient appears doughy and chronically ill. She is alert. Lungs are clear to auscultation. CV is regular without murmur. The right arm is noted to be pink as compared to the left. Apparently she has had multiple IV sticks on the side. Impression: Chronic debilitating illness consistent with MS. 2.diabetes mellitus insulin-requiring. 3.lactic acidosis without evidence of sepsis. Plan: Stop metformin. 2.transfer to floor when bed available. Focused Exam Lactate Level 12/04/18 12:13: Lactic Acid Level 6.92*H 12/04/18 14:54: Lactic Acid Level 5.85*H 12/05/18 03:00: Lactic Acid Level 1.95 JORDAN JEREZ MD Dec 05, 2018 15:05
--- NOTE | 2018-12-05 22:10 | NUR ---
PATIENT TRANSFERRED FROM ICU TO 4TH FLOOR. PATIENT ASSESSED AND AGREE WITH TRANSFERRING NURSES PREVIOUS ASSESSMENT OF PATIENT CONDITION.
[2018-12-06] VITALS (7 sets, daily range): BP systolic 170–202; BP diastolic 72–105
[2018-12-06] MEDS: PIPERACILLIN SODIUM/TAZOBACTAM 4.5 GM in NS (IVPB) 100 ML IV SCH ×2 (00:04→06:33)
[2018-12-06] MEDS: methylPREDNISolone 40 MG/ML (Solu-MEDROL) VIAL IV SCH ×2 (00:07→05:26)
[2018-12-06] MEDS: CATHETER FLUSH 10 ML SYR IV SCH ×4 (00:11→21:08)
[2018-12-06] MEDS: inSUlin ASPART (NovoLOG) 1 UNIT/0.01 ML (CHARGE PER UNIT) SC SCH ×5 (00:26→21:07)
[2018-12-06] MEDS: NS IV 1000 ML 1,000 ML IV SCH (01:51)
[2018-12-06 03:15] LABS: BASOPHILS % (AUTO) 0 % (0-10); EOSINOPHILS % (AUTO) 0 % (0-10); HEMATOCRIT 31 % (35-52); HEMOGLOBIN 10.2 G/DL (11.5-16.0); LYMPHOCYTES # (AUTO) 0.9 X 10^3 (1.0-4.0); LYMPHOCYTES % (AUTO) 8 % (12-44); MEAN CORPUSCULAR HEMOGLOBIN 29 PG (25-34); MEAN CORPUSCULAR HGB CONC 33 G/DL (32-36); MEAN CORPUSCULAR VOLUME 87 FL (80-99); MEAN PLATELET VOLUME 11.6 FL (7.4-10.4); MONOCYTES # (AUTO) 0.4 X 10^3 (0.0-1.0); MONOCYTES % (AUTO) 3 % (0-12); NEUTROPHILS # (AUTO) 9.8 X 10^3 (1.8-7.8); NEUTROPHILS % (AUTO) 89 % (42-75); PLATELET COUNT 200 10^3/uL (130-400); RED CELL DISTRIBUTION WIDTH 17.4 % (10.0-14.5); WHITE BLOOD COUNT 11.1 10^3/uL (4.3-11.0)
[2018-12-06 03:34] LABS: CREATININE SERUM 0.94 MG/DL (0.60-1.30); PHOSPHORUS 2.5 MG/DL (2.3-4.7); POTASSIUM 3.6 MMOL/L (3.6-5.0)
[2018-12-06] MEDS: LABETALOL HCL 20 MG/4 ML VIAL IV PRN (05:26)
--- NOTE | 2018-12-06 07:45 | Pulmonary Progress Note ---
Subjective Time Seen by a Provider: 07:45 Subjective/Events-last exam Pt appears to be improving Sepsis Event Evaluation Height, Weight, BMI Height: 5'4.00" Weight: 133lbs. 5.0oz. 60.912060zx; 19.6 BMI Method:Stated Focused Exam Lactate Level 12/04/18 14:54: Lactic Acid Level 5.85*H 12/05/18 03:00: Lactic Acid Level 1.95 12/06/18 03:05: Lactic Acid Level 1.17 Exam Exam Vital Signs Date Time Temp Pulse Resp B/P (MAP) Pulse Ox O2 Delivery O2 Flow Rate FiO2 12/06/18 04:00 98.5 75 20 190/96 (127) 97 Room Air 12/06/18 01:00 73 12/06/18 00:24 97 Room Air 12/06/18 00:00 97.5 76 18 170/81 (110) 95 Room Air 12/05/18 20:16 97 Room Air 12/05/18 20:15 97 Room Air 12/05/18 19:43 97.2 94 15 154/81 (105) 99 Room Air 12/05/18 19:00 80 12/05/18 18:00 82 15 128/66 (86) 98 Room Air 12/05/18 17:00 75 15 123/68 (86) 97 Room Air 12/05/18 16:00 78 16 121/62 (81) 97 Room Air 12/05/18 16:00 97.9 12/05/18 16:00 97 Room Air 12/05/18 15:00 73 14 125/63 (83) 96 Room Air 12/05/18 14:00 77 17 125/60 (81) 97 Room Air 12/05/18 13:00 83 11 138/84 (102) 98 Room Air 12/05/18 13:00 83 12/05/18 12:00 97 Room Air 12/05/18 12:00 97.1 12/05/18 12:00 86 12 135/77 (96) 98 Room Air 12/05/18 11:00 90 10 145/75 (98) 97 Room Air 12/05/18 10:00 96 10 136/76 (96) 97 Room Air 12/05/18 09:00 99 10 162/88 (112) 98 Room Air 12/05/18 08:00 98 Room Air 12/05/18 08:00 98.2 12/05/18 08:00 99 8 171/91 (117) 97 Room Air I & O 12/06/18 07:00 Intake Total 1680 ml Output Total 725 ml Balance 955 ml Height & Weight Height: 5'4.00" Weight: 133lbs. 5.0oz. 60.197914lz; 19.6 BMI Method:Stated General Appearance: No Apparent Distress HEENT: PERRL/EOMI Neck: Normal Inspection Respiratory: Normal Breath Sounds, No Accessory Muscle Use, No Respiratory Distress Cardiovascular: Regular Rate, Rhythm, No Edema, No JVD, No Murmur, Normal Peripheral Pulses Capillary Refill: Less Than 3 Seconds Extremity: Normal Inspection, No Pedal Edema Neurologic/Psychiatric: Alert, Oriented x3, No Motor/Sensory Deficits, construction rep II- XII Norm as Tested Skin: Warm/Dry, Pallor Results Lab Laboratory Tests 12/05/18 03:00 12/06/18 03:05 Assessment/Plan Assessment/Plan severe Metabolic lactic acidosis - -IVF -improving Right hand edema - doppler of right arm - is negative Hypokalemia, hypomag -replace Leukocytosis r/o infection - probably from steroids -Lyons cultures pending - Vanco and Zosyn currently -- D/C Vancomycin -D/C solumedrol MS HTN Anemia -Monitor -Check occult stools Generalized weakness -Pt/ot -D/C lokesh IDDM -SSI -Stop Metformin ROSSI JOSHI DO Dec 06, 2018 07:45
--- NOTE | 2018-12-06 08:12 | Diagnostic Imaging Report ---
PATIENT HISTORY: Shortness of breath. TECHNIQUE: Frontal view the chest COMPARISON: 12/05/2018 FINDINGS: Lung volumes are normal. No focal consolidation is seen. There is no pleural effusion or pneumothorax. The cardiac silhouette is stable in size. There is aortic atherosclerosis. IMPRESSION: No acute pulmonary abnormality seen. Dictated by: Dictated on workstation # [id number]
[2018-12-06] MEDS ORDERED: KETOROLAC 15 MG/ML VIAL ONE (08:13)
[2018-12-06] MEDS: cloNIDine 0.2 MG (CATAPRES) TAB PO SCH ×3 (08:59→21:07)
[2018-12-06] MEDS: lisINopril 20 MG (PRINIVIL) TABLET PO SCH (08:59)
[2018-12-06] MEDS: VANCOMYCIN 1 GM/NS 250 ML IVPB IV SCH ×2 (08:59)
[2018-12-06] MEDS: hydrALAZINE (APESOLINE) 20 MG/ML VIAL IV PRN ×2 (09:35→17:20)
--- NOTE | 2018-12-06 13:38 | Physical Therapy Daily Note ---
PT Daily Note-Current Subjective Pt was in bed with in room and agreed to PT. Pain Numeric Pain Scale: 0-No Pain Location: No Pain Reported Mental Status Patient Orientation: Person, Place Attachments: IV Transfers Therapy Code Descriptions/Definitions Functional [place] Measure: 0=Not Assessed/NA 4=Minimal Assistance 1=Total Assistance 5=Supervision or Setup 2=Maximal Assistance 6=Modified [place] 3=Moderate Assistance 7=Complete [place] Therapy Quality Codes: 6 Independent with activity with or without an assistive device 5 Patient requires set up or clean up by helper. Patient completes activity by themselves 4 Supervision or touching assist (CGA). [place] provide cues , steadying assist 3 The helper provides less than half the effort to complete the activity 2 The helper provides more than half the effort to complete the activity 1 Dependent. The helper does all the effort to complete an activity 7 Patient refused to complete or attempt activity 9 The patient did not perform the activity before the current illness or injury 88 Not attempted due to Medical conditions or safety concerns Transfers (B, C, W/C) (FIM): 2 Scootin Supine to/from Sit: 4 Sit to/from Stand: 2 Weight Bearing Right Lower Extremity: Right Full Weight Bearing Left Lower Extremity: Left Full Weight Bearing Gait Training Gait (FIM): 1 Distance (FIM): 1=up to 49 ft Distance: 10' Gait Level of Assist: 2 Gait Persons Needed: 2 Gait Assistive Device: FWW Pt has small HOSSEIN and slides feet. Pt only is able to pick feet up minimally. Pt also has a flexed trunk with hyperextension of knees. Exercises Seated Therapy Exercises: Ankle pumps, Long arc quads, Hip flexion Seated Reps: 10 Assessment Current Status: Fair Progress Pt requires increased time to perform any activity due to slow processing. Pt gets very distracted and cannot focus on multiple things at one time. Pt is required mod A to get to EOB. Pt was mod A- maxA during sit<>stand to FWW. Pt was able to amb 10' with FWW to recliner with max A x2. Pt required VC during amb to perform activity. PT instructed and demonstrated how pt was amb and instructed her in the posture that makes activity successful. Pt was able to perform seated LE ex. Pt is now in recliner with all needs met and in room. PT Short Term Goals Short Term Goals Time Frame: Dec 12, 2018 Transfers (B,C,W/C) (FIM): 3 Gait (FIM): 1 Distance (FIM): 1=up to 49 ft Gait Distance Comment: 10' Gait Level of Assist: 3 Gait Assistive Device: FWW PT Plan Problem List Problem List: Activity Tolerance, Functional Strength, Safety, Balance, Gait, Transfer, Bed Mobility, ROM Treatment/Plan Treatment Plan: Continue Plan of Care Treatment Plan: Bed Mobility, Education, Functional Activity Shiv, Functional Strength, Gait, Safety, Therapeutic Exercise, Transfers Treatment Duration: Dec 12, 2018 Frequency: 6 times per week Estimated Hrs Per Day: .25 hour per day Patient and/or Family Agrees t: Yes Time/GCodes Time In: 1258 Time Out: 1321 Total Billed Treatment Time: 23 Total Billed Treatment 1 visit FA x2 23 min SOPHIA ROSARIO PT Dec 06, 2018 13:38
[2018-12-06] MEDS ORDERED: ALPR0.5T7 PO ×2 (14:05)
[2018-12-06] MEDS ORDERED: AMLO5TAB9 PO (14:05)
[2018-12-06] MEDS ORDERED: CLON0.1T PO (14:05)
--- NOTE | 2018-12-06 14:30 | Occupational Ther Daily Note ---
OT Current Status-Daily Note Subjective Pt alert, sitting in recliner. Pt agrees to therapy. present in room. Took over care from PT. No c/o pain at this time. Mental Status/Objective Patient Orientation: Person, Place, Time, Situation Therapy Code Descriptions/Definitions Functional [place] Measure: 0=Not Assessed/NA 4=Minimal Assistance 1=Total Assistance 5=Supervision or Setup 2=Maximal Assistance 6=Modified [place] 3=Moderate Assistance 7=Complete [place] ADL-Treatment Pt agrees to shower. SPT from recliner to transport shower chair, mod A with dancing type transfer. Transferred pt into shower with shower chair. Pt completed upper body, lauri area and upper legs for bathing and drying. Pt does have light pressure when using hands. Assist for all other areas. Pt able to assist with threading UE's into hospital gown and max A to don/doff briefs. Pt does attempt to assist though has light pinch/grasp. Assist to comb hair. Pt able to apply perfume and open lotion and apply to face. Pt takes increased time to complete ADLs. After therapy, pt sitting in recliner with LE's elevated. Nrsg, physician and in room. All needs met in room. OT Short Term Goals Short Term Goals Time Frame: Dec 12, 2018 Eating(FIM): 5 Grooming(FIM): 4 Upper Body Dressing(FIM): 3 Lower Body Dressing(FIM): 3 Toileting(FIM): 3 Transfers (B,C,W/C) (FIM): 3 Toilet/Commode Transfer(FIM): 3 Additional Short Term Goals: 1-Demonstrate ADL Tasks, 2-Verbalize Understanding , 3-ImproveStrength/Shiv 1=Demonstrate adherence to instructed precautions during ADL tasks. 2=Patient will verbalize/demonstrate understanding of assistive devices/ modifications for ADL. 3=Patient will improve strength/tolerance for activity to enable patient to perform ADL's. OT Care Transition Manager Goals Half-Way Goals Time Frame: Dec 26, 2018 Eating (FIM): 5 Grooming(FIM): 5 Upper Body Dressing(FIM): 4 Lower Body Dressing(FIM): 4 Toileting(FIM): 4 Transfers (B,C,W/C) (FIM): 4 Toilet/Commode Transfer(FIM): 4 Additional Goals: 1-Demonstrate ADL Tasks, 2-Verbalize Understanding, 3- ImproveStrength/Shiv 1=Demonstrate adherence to instructed precautions during ADL tasks. 2=Patient will verbalize/demonstrate understanding of assistive devices/ modifications for ADL. 3=Patient will improve strength/tolerance for activity to enable patient to perform ADL's. OT Education/Plan Discharge Recommendations Plan/Recommendations: Continue POC Treatment Plan/Plan of Care Patient would benefit from OT for education, treatment and training to promote independence in ADL's, mobility, safety and/or upper extremity function for ADL' s. Plan of Care: ADL Retraining, Functional Mobility, UE Funct Exercise/Act Treatment Duration: Dec 26, 2018 Frequency: 5 times per week Estimated Hrs Per Day: .25 hour per day Agreement: Yes Rehab Potential: Fair Time/GCodes Start Time: 13:21 Stop Time: 14:25 Total Time Billed (hr/min): 64 Billed Treatment Time 1 visit-ADL 4 (65 min) JORGE TERRY Dec 06, 2018 14:30
--- NOTE | 2018-12-06 14:39 | Progress Note-Hospitalist ---
Progress Note Progress Notes/Assess & Plan Date Seen 12/06/18 Time Seen by Provider: 14:36 Assessment & Plan The patient looks remarkably better today. She has been able to shower and room and feels much better. Her states this is better than she has looked since last . We are now making plans for post hospital. She will be evaluated for IRF. Physical exam: She is bright and alert. Lungs are clear to auscultation. CV is regular. She is more animated and answers questions quickly. Impression: Multiple sclerosis in exacerbation. Plan: Await rehabilitation eval Focused Exam Lactate Level 12/04/18 14:54: Lactic Acid Level 5.85*H 12/05/18 03:00: Lactic Acid Level 1.95 12/06/18 03:05: Lactic Acid Level 1.17 JORDAN JEREZ MD Dec 06, 2018 14:39
--- NOTE | 2018-12-06 14:59 | NUR ---
TALKED TO DR JEREZ. HE DC'D THE TELEMETRY AND IT IS OKAY TO DC TO ADDITIONAL NEURO CHECKS. PATIENT CAN BE ROUTINE VITALS.
--- NOTE | 2018-12-06 15:28 | NUR ---
CM/SS spoke with IRF and they are not going to be able to accept the patient. Discussed with patient and her , they would like to have referral information sent to [facility] since they have a women's private bed available.
--- NOTE | 2018-12-06 21:00 | NUR ---
2100-pt requesting prn anxiety medication-pt states she is concerned about moving to the retirement and is worried that she wont like it. pt states she would like to rest but her nerves wont let her relax enough to do so. prn Xanax given 2129-pt resting
[2018-12-06] MEDS: ALPRAZolam 0.5 MG (XANAX) TAB PO PRN (21:19)
--- NOTE | 2018-12-06 23:58 | NUR ---
2345-PT VOMITING-PT REQUESTING MEDICATION FOR NAUSEA & VOMITING 2358-THIS RN CALLED DR. JEREZ TO INFORM HIM OF NAUSEA & VOMITING-PRN ZOFRAN ORDER RECEIVED-THIS RN REPEATED ORDER BACK & DR. JEREZ AGREED.
[2018-12-07] VITALS (12 sets, daily range): BP systolic 176–251; BP diastolic 74–121
[2018-12-07] MEDS ORDERED: ONDANSETRON 4 MG/2 ML (SDV) Z0FRAN IVP PRN
[2018-12-07] MEDS: LABETALOL HCL 20 MG/4 ML VIAL IV PRN (02:02)
[2018-12-07] MEDS: hydrALAZINE (APESOLINE) 20 MG/ML VIAL IV PRN ×2 (02:58→05:02)
[2018-12-07] MEDS ORDERED: PROMETHAZINE INJ 25 MG/ML (PHENERGAN) AMP ONE (03:03)
[2018-12-07] MEDS: PROMETHAZINE INJ 25 MG/ML (PHENERGAN) AMP IVP PRN ×2 (03:14→18:33)
[2018-12-07 04:07] LABS: BASOPHILS % (AUTO) 0 % (0-10); EOSINOPHILS % (AUTO) 0 % (0-10); HEMATOCRIT 37 % (35-52); HEMOGLOBIN 12.1 G/DL (11.5-16.0); LYMPHOCYTES # (AUTO) 1.4 X 10^3 (1.0-4.0); LYMPHOCYTES % (AUTO) 11 % (12-44); MEAN CORPUSCULAR HEMOGLOBIN 28 PG (25-34); MEAN CORPUSCULAR HGB CONC 33 G/DL (32-36); MEAN CORPUSCULAR VOLUME 86 FL (80-99); MEAN PLATELET VOLUME 11.3 FL (7.4-10.4); MONOCYTES # (AUTO) 1.1 X 10^3 (0.0-1.0); MONOCYTES % (AUTO) 9 % (0-12); NEUTROPHILS # (AUTO) 10.4 X 10^3 (1.8-7.8); NEUTROPHILS % (AUTO) 80 % (42-75); PLATELET COUNT 272 10^3/uL (130-400); RED CELL DISTRIBUTION WIDTH 17.4 % (10.0-14.5)
[2018-12-07 04:29] LABS: BUN/CREATININE RATIO 23; CALCIUM 9.1 MG/DL (8.5-10.1); CARBON DIOXIDE 22 MMOL/L (21-32); CHLORIDE 104 MMOL/L (98-107); CREATININE SERUM 0.84 MG/DL (0.60-1.30); GFR ESTIMATED > 60; GLUCOSE 249 MG/DL (70-105); MAGNESIUM 1.5 MG/DL (1.8-2.4); PHOSPHORUS 2.6 MG/DL (2.3-4.7); POTASSIUM 2.9 MMOL/L (3.6-5.0); SODIUM 142 MMOL/L (135-145)
[2018-12-07] MEDS ORDERED: NS IV 1000 ML 1,000 ML ONE (04:56)
[2018-12-07] MEDS: NS IV 1000 ML 1,000 ML IV SCH ×2 (05:02→15:45)
--- NOTE | 2018-12-07 05:12 | NUR ---
0200-prn labetolol given b/p 190/104 hr 90 0245-b/p 215/120 hr 92 pt also vomiting again-yellow green emesis 0250-this rn called dr. campos informed him of pt b/p-previous medications given & that the pt is vomiting again orders to give the prn hydralazine & new order for Phenerga-this rn repeated back & dr. campos agreed to them 0335-b/p200/92 hr 96 0405-b/p 200/86 hr 98 0415 this rn attempted to call dr. campos no answer 0435-this rn received a call from lab pt lactic acid 2.19 0450-this rn called dr. campos no answer b/p 200/90 hr 102 0500-this rn called dr. campos again- to inform him of pt lactic acid & blood pressure still elevated orders to repeat prn hydralazine & start ns fluids on pt (bolus 250ml then run fluids at 125ml/hr)
[2018-12-07] MEDS: CATHETER FLUSH 10 ML SYR IV SCH ×3 (06:54→22:25)
[2018-12-07] MEDS: cloNIDine 0.2 MG (CATAPRES) TAB PO SCH ×3 (07:07→21:39)
[2018-12-07] MEDS: inSUlin ASPART (NovoLOG) 1 UNIT/0.01 ML (CHARGE PER UNIT) SC SCH ×4 (07:07→22:26)
[2018-12-07] MEDS: lisINopril 20 MG (PRINIVIL) TABLET PO SCH (07:08)
[2018-12-07] MEDS ORDERED: FUROSEMIDE 40 MG/4 ML INJ (LASIX) IVP NR ×2 (07:28→18:30)
--- NOTE | 2018-12-07 07:42 | NUR ---
0650- pt b/p 200/110 hr [address] campos to update him on pt vitals orders to give am dose of catapress, lisinopril & give lasix 20mg iv
--- NOTE | 2018-12-07 08:21 | Diagnostic Imaging Report ---
INDICATION: Weakness and shortness of breath. TIME OF EXAMINATION: 03:53 a.m. COMPARISON: Correlation is made with prior study one day earlier. FINDINGS: The heart size is normal. The pulmonary vascularity is unremarkable. The lungs are clear. No infiltrate, effusion or pneumothorax is detected. IMPRESSION: No acute cardiopulmonary process is detected. Dictated by: Dictated on workstation # [id number]
[2018-12-07] MEDS ORDERED: ALPRAZolam 0.5 MG (XANAX) TAB PO PRN (08:30)
[2018-12-07] MEDS ORDERED: FLUTICASONE NASAL SPRAY (FLONASE) 16 GM BTL NS PRN (08:30)
--- NOTE | 2018-12-07 08:53 | Pulmonary Progress Note ---
Sepsis Event Evaluation Height, Weight, BMI Height: 5'4.00" Weight: 132lbs. 0.0oz. 59.771755gk; 19.6 BMI Method:Stated Focused Exam Lactate Level 12/06/18 03:05: Lactic Acid Level 1.17 12/07/18 04:00: Lactic Acid Level 2.19*H 12/07/18 06:00: Lactic Acid Level 1.08 Lactic Acid Level Laboratory Tests Test 12/07/18 06:00 Lactic Acid Level 1.08 MMOL/L (0.50-2.00) Exam Exam Vital Signs Date Time Temp Pulse Resp B/P (MAP) Pulse Ox O2 Delivery O2 Flow Rate FiO2 12/07/18 07:00 119 12/07/18 04:50 102 200/90 (126) 12/07/18 04:05 99.2 98 20 200/86 (124) 96 Room Air 12/07/18 03:35 96 200/92 (128) 12/07/18 02:45 92 215/120 (151) 12/07/18 02:10 88 12/07/18 02:00 90 190/104 (132) 12/07/18 00:00 99.0 90 20 176/74 (108) 95 Room Air 12/06/18 21:00 94 20 170/74 (106) 96 Room Air 12/06/18 20:07 99.2 78 18 173/72 (105) 95 Room Air 12/06/18 20:00 Room Air 12/06/18 15:47 96.6 93 18 202/105 (137) 99 Room Air 12/06/18 13:20 95 12/06/18 12:00 98.8 94 18 179/84 (115) 96 Room Air I & O 12/07/18 07:00 Intake Total 2275 ml Output Total 300 ml Balance 1975 ml Height & Weight Height: 5'4.00" Weight: 132lbs. 0.0oz. 59.304050kg; 19.6 BMI Method:Stated General Appearance: No Apparent Distress HEENT: PERRL/EOMI Neck: Normal Inspection Respiratory: Normal Breath Sounds, No Accessory Muscle Use, No Respiratory Distress Cardiovascular: Regular Rate, Rhythm, No Edema, No JVD, No Murmur, Normal Peripheral Pulses Capillary Refill: Less Than 3 Seconds Extremity: Normal Inspection, No Pedal Edema Neurologic/Psychiatric: Alert, Oriented x3, No Motor/Sensory Deficits, medical appliance maker II- XII Norm as Tested Skin: Warm/Dry, Pallor Results Lab Laboratory Tests 12/06/18 03:05 12/07/18 04:00 Assessment/Plan Assessment/Plan Hypokalemia, -replace Leukocytosis r/o infection - probably from steroids -Lyons cultures pending - Zosyn currently -- D/C Vancomycin -D/C solumedrol MS HTN Anemia -Monitor -Check occult stools Generalized weakness -Pt/ot -D/C lokesh IDDM -SSI -Stop Metformin ROSSI JOSHI DO Dec 07, 2018 08:53
[2018-12-07] MEDS ORDERED: TROUGH ORDER-PHARMACY XX NR (09:00)
--- NOTE | 2018-12-07 09:43 | Physical Therapy Daily Note ---
PT Daily Note-Current Subjective Pt was in bed with nurse land surveyor assistant in room and . reports pt has been vomiting most likely due to anxiety of going to [place]. Nurse agrees to PT assisting with bed mobility of pt. Will not get patient out of bed at this time due to nausea, she actually vomits during the beginning of tx. Pain Numeric Pain Scale: 5-Moderate Pain Location Body Site: Abdomen Mental Status Patient Orientation: Person Attachments: IV Transfers Therapy Code Descriptions/Definitions Functional [place] Measure: 0=Not Assessed/NA 4=Minimal Assistance 1=Total Assistance 5=Supervision or Setup 2=Maximal Assistance 6=Modified [place] 3=Moderate Assistance 7=Complete [place] Therapy Quality Codes: 6 Independent with activity with or without an assistive device 5 Patient requires set up or clean up by helper. Patient completes activity by themselves 4 Supervision or touching assist (CGA). [place] provide cues , steadying assist 3 The helper provides less than half the effort to complete the activity 2 The helper provides more than half the effort to complete the activity 1 Dependent. The helper does all the effort to complete an activity 7 Patient refused to complete or attempt activity 9 The patient did not perform the activity before the current illness or injury 88 Not attempted due to Medical conditions or safety concerns Transfers (B, C, W/C) (FIM): 3 Rollin Weight Bearing Right Lower Extremity: Right Full Weight Bearing Left Lower Extremity: Left Full Weight Bearing Assessment Current Status: Poor Progress Pt required mod A with bed mobility. Mod A with rolling to L and R. Pt required min A with maintaining side lying position as she was cleaned and pad placed under her. Pt required mod A to be repositioned in bed. Pt is in bed with nurse land surveyor assistant and in room. PT Short Term Goals Short Term Goals Time Frame: Dec 12, 2018 Transfers (B,C,W/C) (FIM): 3 Gait (FIM): 1 Distance (FIM): 1=up to 49 ft Gait Distance Comment: 10' Gait Level of Assist: 3 Gait Assistive Device: FWW PT Plan Problem List Problem List: Activity Tolerance, Functional Strength, Safety, Balance, Gait, Transfer, Bed Mobility, ROM Treatment/Plan Treatment Plan: Continue Plan of Care Treatment Plan: Bed Mobility, Education, Functional Activity Shiv, Functional Strength, Gait, Safety, Therapeutic Exercise, Transfers Treatment Duration: Dec 12, 2018 Frequency: 6 times per week Estimated Hrs Per Day: .25 hour per day Patient and/or Family Agrees t: Yes Safety Risks/Education Patient Education: Transfer Techniques, Correct Positioning, Safety Issues Teaching Recipient: Patient Teaching Methods: Demonstration, Discussion Response to Teaching: Reinforcement Needed Time/GCodes Time In: 925 Time Out: 934 Total Billed Treatment Time: 9 Total Billed Treatment 1 visit FA 9 min PEBBLES BERYR PT Dec 07, 2018 09:43
[2018-12-07] MEDS: ALPRAZolam 0.5 MG (XANAX) TAB PO SCH (10:01)
[2018-12-07] MEDS: POTASSIUM CL 10MEQ/50ML IVPB 50 ML IV SCH ×4 (10:05→13:36)
--- NOTE | 2018-12-07 11:00 | NUR ---
CM/SS ML- [facility] called and they will accept placement of the patient when she is able to discharge.
[2018-12-07] MEDS: cloNIDine 0.1 MG (CATAPRES) TAB PO SCH ×3 (11:16→21:40)
[2018-12-07] MEDS: meTOproloL SUCCINATE 50 MG (TOPROL XL) TAB PO SCH ×2 (11:16→21:39)
[2018-12-07] MEDS: amLODIPine 10 MG (NORVASC) TAB PO SCH ×2 (11:16→11:28)
[2018-12-07] MEDS: LACTOBACILLUS ACIDOPHILUS (PROBIOTIC) CAPSULE PO SCH (11:20)
[2018-12-07] MEDS: KCL 10 MEQ TAB (MICRO K) PO SCH (11:20)
[2018-12-07] MEDS: glyBURIDE 5 MG (MICRONASE) TAB PO SCH (11:20)
[2018-12-07] MEDS: ALGAL OIL PO SCH ×2 (11:21→22:04)
[2018-12-07] MEDS: B12 PO SCH ×2 (11:21→22:04)
[2018-12-07] MEDS: B6 PO SCH ×2 (11:21→22:04)
[2018-12-07] MEDS: LEVOMEFOLATE PO SCH ×2 (11:21→22:04)
--- NOTE | 2018-12-07 11:29 | Progress Note-Hospitalist ---
FAIZA JOLLEY DO 12/07/18 1129: Subjective HPI/CC On Admission Time Seen by Provider: 09:30 Pt is a 68yoCF known to me from recent inpatient admission and IRU consult who presented to the ER due to generalized weakness. She gives a garrulous account of why she is admitted to the hospital states that her IV hurts and she looks like she has been "attacked by a mole." With further pointed questions she is able to answer some ROS. She states she was discharged from IRU recently and was doing well at home but she fell and then developed significant weakness. She is unsure of the timeframe in which this happened. Per report from ER physician this was over the last day or two. She denies any fevers or cough. She states she had issues previously with her urine but has not needed a catheter at home. She is otherwise unable to provide much history. Subjective/Events-last exam Pt has [facility] [place] setup but had a lot of vomiting and elevated BP which required multiple interventions last night by Dr. Catalan my call partner Telemetry is maintained for IV antihypertensives and will check abdominal X-ray and consult Dr. Garza to assure this is not a small bowel obstruction since she had not had a BM since Wednesday but she just had a very larger evacuation so we will likely just wait for tomorrow for DC Patient has long standing HTN OOC and was previously on Clonidine patch but was not on her med profile so will start that and multiple other meds Patient very end stage status with multiple organ systems and has poor quality of life but will continue to support the patient the best we can but overall prognosis is poor given severe debility at baseline. Review of Systems General: Fatigue Gastrointestinal: Nausea, Vomiting Focused Exam Lactate Level 12/06/18 03:05: Lactic Acid Level 1.17 12/07/18 04:00: Lactic Acid Level 2.19*H 12/07/18 06:00: Lactic Acid Level 1.08 Objective Exam Vital Signs Vital Signs Date Time Temp Pulse Resp B/P (MAP) Pulse Ox O2 Delivery O2 Flow Rate FiO2 12/07/18 16:00 99.0 100 16 232/100 (144) 93 Room Air Capillary Refill : Less Than 3 Seconds General Appearance: Anxious, Chronically ill, Moderate Distress HEENT: PERRL/EOMI Neck: Normal Inspection Respiratory: Lungs Clear, Normal Breath Sounds, No Accessory Muscle Use, No Respiratory Distress Cardiovascular: Regular Rate, Rhythm, No Edema, No JVD, No Murmur, Normal Peripheral Pulses Gastrointestinal: Normal Bowel Sounds, Non Tender, Soft, Tenderness ( generalized) Genital/Rectal: Other Back: No CVA Tenderness Extremity: Normal Inspection, No Pedal Edema Neurologic/Psychiatric: Alert, Oriented x3, No Motor/Sensory Deficits, wood molder II- XII Norm as Tested Skin: Warm/Dry, Pallor Results/Procedures Lab Laboratory Tests 12/07/18 04:00 Patient resulted labs reviewed. Imaging: Reviewed Imaging Report Assessment/Plan Assessment and Plan Assess & Plan/Chief Complaint Assessment: HTN urgency off Clonidine patch giving rise to rebound HTN Sevre MS Severe debility at baseline N/V DM OOC Poor prognosis Plan: Dr Garza consultation Multiple BP meds restarted of home meds Clonidine patch Severe HTN OOC occurs at baseline Poor prognosis Needs NHP and will stay there permanently Needs DNR Critical Care Critically Ill Patient Diagnosis/Problems Diagnosis/Problems (1) Hypertensive urgency Status: Acute (2) Nausea and vomiting Status: Acute (3) Uncontrolled diabetes mellitus Status: Acute (4) Anemia Status: Acute Qualifiers: Anemia type: unspecified type Qualified Codes: D64.9 - Anemia, unspecified (5) Abdominal pain Status: Acute Qualifiers: Abdominal location: generalized Qualified Codes: R10.84 - Generalized abdominal pain (6) Multiple sclerosis Status: Chronic (7) High anion gap metabolic acidosis (8) Generalized weakness Status: Acute (9) Insulin dependent diabetes mellitus Status: Chronic Clinical Quality Measures DVT/VTE Risk/Contraindication: Risk Factor Score Per Nursin RFS Level Per Nursing on Admit: 4+=Very High A[employer]IN V[employer]A MEDICAL STUDENT 12/07/18 1518: Subjective HPI/CC On Admission Date Seen by Provider: Dec 07, 2018 CC: Weakness HPI: Pt is 68 yo female who presented to ER by EMS from home 4 days ago complaining of generalized weakness. This is not new; she was worked up for the same complaint at [facility] in October and spent some time in inpatient rehab. Pt has a diagnosis of MS. The pt has not gone to her follow up appointments w/ Neurology at . She denied any other complaints on arrival. In the ED she was found to have high anion gap metabolic acidosis and was admitted for further workup and potential sepsis. Subjective/Events-last exam Pt has shown overall improvement in her alertness and activity level since admission However, her white count has now gone up and her lactate has remained intermittently elevated Today pt started vomiting and has abdominal pain Pending XR Abd/KUB to r/o SBO Review of Systems General: No Chills, No Fatigue HEENT: No Head Aches Pulmonary: No Dyspnea Cardiovascular: No: Chest Pain Gastrointestinal: Vomiting, Abdominal Pain; No: Nausea Genitourinary: No Dysuria Neurological: Weakness Objective Exam General Appearance: No Apparent Distress, WD/WN HEENT: PERRL/EOMI, TMs Normal, Normal ENT Inspection, Pharynx Normal Neck: Full Range of Motion, Normal Inspection, Non Tender, Supple Respiratory: Chest Non Tender, Lungs Clear, Normal Breath Sounds, No Accessory Muscle Use, No Respiratory Distress Cardiovascular: Regular Rate, Rhythm, No Edema, No Murmur, Normal Peripheral Pulses Gastrointestinal: Abnormal Bowel Sounds, Tenderness Rectal: Deferred Back: No CVA Tenderness Extremity: Normal Inspection, No Pedal Edema Neurologic/Psychiatric: Alert, Oriented x3, No Motor/Sensory Deficits, wood molder II- XII Norm as Tested Skin: Normal Color, Warm/Dry Lymphatic: No Adenopathy Results/Procedures Imaging: Reviewed Imaging Films, Reviewed Imaging Report Assessment/Plan Assessment and Plan Assess & Plan/Chief Complaint Assessment: New onset abdominal pain, emesis Generalized weakness Hypokalemia Leukocytosis MS Hypertensive urgency Anemia DM type II Plan: XR abd/KUB r/o SBO Replete potassium Monitor CBC, SBO could be contributing to leukocytosis HemeOccult was negative so unlikely there is a GI bleed PT/OT Stop metformin due to elevated lactate, sliding scale insulin instead Increase doses of home HTN meds with goal of 160/120 Diagnosis/Problems Diagnosis/Problems (1) Nausea and vomiting Status: Acute (2) Uncontrolled diabetes mellitus Status: Acute (3) Anemia Status: Acute Qualifiers: Anemia type: unspecified type Qualified Codes: D64.9 - Anemia, unspecified (4) Abdominal pain Status: Acute Qualifiers: Abdominal location: generalized Qualified Codes: R10.84 - Generalized abdominal pain (5) Multiple sclerosis Status: Chronic (6) High anion gap metabolic acidosis (7) Hypertensive urgency Status: Acute (8) Generalized weakness Status: Acute (9) Insulin dependent diabetes mellitus Status: Chronic FAIZA JOLLEY DO Dec 07, 2018 11:29 [employer] VILLA MEDICAL STUDENT Dec 07, 2018 15:18
[2018-12-07] MEDS ORDERED: cloNIDine 0.1 MG PATCH (CATAPRES TTS) TDSY TD NR (11:30)
[2018-12-07] MEDS ORDERED: NITROGLYCERIN 2% OINT 1 GM UNIT DOSE PACKET TOP PRN (11:30)
[2018-12-07] MEDS ORDERED: SCOPOLAMINE 1.5 MG (TRANSDERM-SCOP) PATCH TD ONE (11:30)
--- NOTE | 2018-12-07 11:57 | Occ Therapy Progress Note ---
Therapy Progress Note Attempted therapy at 1130. Pt in bed, family states pt is not feeling well and has been vomiting, declined therapy today. Will attempt tomorrow as pt able to tolerate. 1, visit TARIQ MCNULTY OT Dec 07, 2018 11:57
[2018-12-07] MEDS ORDERED: LOSARTAN 50 MG (COZAAR) TAB PO SCH (12:00)
[2018-12-07] MEDS ORDERED: MAGNESIUM CITRATE 100 MG PO SCH (12:00)
[2018-12-07] MEDS ORDERED: SCOPOLAMINE 1.5 MG (TRANSDERM-SCOP) PATCH ONE (12:19)
[2018-12-07] MEDS: MULTIVIT W/MINERALS TAB (THERAGRAN M) PO SCH (12:31)
[2018-12-07] MEDS: ASCORBIC ACID (VIT C) 500 MG TABLET PO SCH (12:31)
[2018-12-07] MEDS ORDERED: PATCH REMOVAL TP ONE (12:45)
--- NOTE | 2018-12-07 15:13 | NUR ---
CM/SS spoke with the patient and her . Discussed her concerns with going to SNF and that could be tomorrow if able to discharge.
--- NOTE | 2018-12-07 15:30 | NUR ---
DR. WAYNE IN ROOM WITH PT AND . NEW ORDER RECEIVED FOR DECADRON 4MG IV Q4H PRN.
[2018-12-07] MEDS ORDERED: DEXAMETHASONE 4 MG/ML SDV (DECADRON) IV PRN (15:45)
[2018-12-07] MEDS ORDERED: clonazePAM 0.5 MG (KlonoPIN) TAB PO PRN (16:00)
--- NOTE | 2018-12-07 17:18 | Diagnostic Imaging Report ---
INDICATION: Vomiting and small bowel obstruction. TIME OF EXAM: 3:51 p.m. EXAMINATION: Portable supine radiograph of the abdomen was obtained. FINDINGS: The abdomen shows a paucity of bowel gas. This can be seen with predominantly fluid-filled bowel loops. Obstruction cannot be entirely excluded. There is minimal gas located within a bowel loop in the right upper quadrant, presumably colon. No pathologic calcifications are seen. Some vague linear calcific densities in the left abdomen are noted and indeterminate. IMPRESSION: There is a paucity of abdominal bowel gas. Small bowel obstruction cannot be excluded. CT would be useful for further evaluation, if clinically indicated. Dictated by: Dictated on workstation # [id number]
--- NOTE | 2018-12-07 17:26 | CONSULTATION REPORT ---
DATE OF SERVICE: 12/07/2018 ATTENDING PRIMARY CARE PHYSICIAN: Frank Goldsmith MD. CONSULTING PHYSICIAN: Dr. Kimball. HISTORY OF PRESENT ILLNESS: The patient is a 68-year-old female who was admitted for weakness. She has had recent inpatient admissions to the inpatient rehabilitation unit. She has a history of what sounds to be a neurologic disorder consistent with multiple sclerosis. She does have generalized weakness throughout and does have weakness of the lower extremities and does also have difficulty with ambulation. She came in with worsening weakness. She states that at home, she felt worse and was unable to ambulate. She also does have a history of hypertension; however, the and patient reports the majority of this is due to anxiety and that she does take alprazolam and that generally does decrease her blood pressure. Today, she developed nausea and vomiting of unknown etiology. She did have several large bowel movements and once today as well. It does not appear that she is obstructed. Due to her history of anxiety, as well as a stressful situation of her current medical status, she may have a stress-induced gastritis. We will start her on Protonix 40 mg daily and also proceed with a different form of an antianxiety medication. We will also proceed with trials of other medications for antinausea. PAST MEDICAL HISTORY: Headache or migraine headaches, hypercholesterolemia, hypertension, multiple sclerosis, history of TIA and stroke, history of urinary tract infection, constipation, pancreatitis insulin-dependent diabetes, anxiety, and depression. PAST SURGICAL HISTORY: Laparoscopic cholecystectomy, appendectomy, and laparoscopic hysterectomy. ALLERGIES: CANAGLIFLOZIN, IODINE, LORAZEPAM, ZOLPIDEM, CODEINE, ERYTHROMYCIN, HEPARIN ANALOGUES. MEDICATIONS: Alprazolam 0.5 mg p.r.n., aspirin 81 mg daily, vitamin D 2000 units daily, clonidine 0.2 mg t.i.d., fluticasone 16 grams spray daily, glyburide 5 mg daily, detemir insulin 8 units each day at bedtime, Metanx b.i.d., losartan 50 mg daily, metformin 500 mg b.i.d., metoprolol 50 mg b.i.d., and potassium 10 mEq daily. SOCIAL HISTORY: Negative smoke, negative alcohol. FAMILY HISTORY: Father heart disease. REVIEW OF SYSTEMS: This is a well-nourished female, currently awake and alert and does have nausea. She is not experiencing any shortness of breath or difficulty breathing. No chest pain, palpitations or diaphoresis. No hematemesis, no coffee ground emesis. She did have a large bowel movement earlier today. No red blood per rectum, no dark tarry stools. There is no abdominal distention. No fever or chills. No recent inadvertent weight loss. All other review of systems is negative. PHYSICAL EXAMINATION: VITAL SIGNS: Temperature is 98.8, blood pressure 210/100, pulse 96, respirations 20, and pulse ox 94% on room air. CHEST: Clear. Good breath sounds bilaterally. HEART: Regular, no murmurs. EXTREMITIES: No lower extremity edema. Negative Homans sign. HEENT: No scleral icterus. NECK: No cervical lymphadenopathy. ABDOMEN: Soft, nontender, and nondistended. SKIN: Warm, dry. ASSESSMENT AND PLAN: A 68-year-old female with nausea and vomiting with a history of hypertension, multiple sclerosis as well as of what sounds to be severe anxiety. We feel at this time she does not show any signs or symptoms of obstruction; however, she does have what appears to be gastritis with associated nausea. For now, we will start her on Protonix 40 mg daily and also add another oral benzodiazepine for anxiety relief. If she has worsening symptoms, we will proceed with an EGD on this admission; however, if she improves, this may be done as an outpatient. Job ID: [id number] DocumentID: [id number] Dictated Date: 12/07/2018 16:01:33 Radio Personality Date: 12/07/2018 17:25:33 Dictated By: NICHOL WAYNE MD
[2018-12-07] MEDS ORDERED: glyBURIDE 5 MG (MICRONASE) TAB PO SCH (18:00)
--- NOTE | 2018-12-07 18:10 | NUR ---
DR. JOLLEY CALLED FOR UPDATE ON PT. NEW ORDERS TO D/C FLUIDS AND LASIX 20MG IV ONCE NOW.
[2018-12-07] MEDS: metFORMIN 500 MG (GLUCOPHAGE) TAB PO SCH (18:33)
[2018-12-07] MEDS ORDERED: inSUlin DETERMIR 1 UNIT/0.01 ML (LEVEMIR) CHARGE PER UNIT SQ SCH (21:00)
[2018-12-07] MEDS ORDERED: ASPIRIN E.C. 81 MG (ECOTRIN) TAB PO SCH (21:00)
[2018-12-07] MEDS ORDERED: ALPRAZolam 0.5 MG (XANAX) TAB PO SCH (21:00)
[2018-12-08] VITALS: BP 112/80
[2018-12-08 02:30] VITALS: BP 114/78
[2018-12-08 04:46] LABS: BASOPHILS % (AUTO) 0 % (0-10); EOSINOPHILS % (AUTO) 0 % (0-10); HEMATOCRIT 39 % (35-52); LYMPHOCYTES # (AUTO) 1.2 X 10^3 (1.0-4.0); LYMPHOCYTES % (AUTO) 13 % (12-44); MEAN CORPUSCULAR HEMOGLOBIN 28 PG (25-34); MEAN CORPUSCULAR HGB CONC 33 G/DL (32-36); MEAN CORPUSCULAR VOLUME 86 FL (80-99); MEAN PLATELET VOLUME 11.5 FL (7.4-10.4); MONOCYTES % (AUTO) 11 % (0-12); NEUTROPHILS # (AUTO) 6.8 X 10^3 (1.8-7.8); NEUTROPHILS % (AUTO) 76 % (42-75); PLATELET COUNT 242 10^3/uL (130-400); RED CELL DISTRIBUTION WIDTH 17.3 % (10.0-14.5)
[2018-12-08 05:11] LABS: CREATININE SERUM 1.91 MG/DL (0.60-1.30); MAGNESIUM 1.4 MG/DL (1.8-2.4); PHOSPHORUS 3.7 MG/DL (2.3-4.7); POTASSIUM 3.2 MMOL/L (3.6-5.0)
[2018-12-08 05:25] VITALS: BP 103/74
[2018-12-08] MEDS: CATHETER FLUSH 10 ML SYR IV SCH (06:51)
[2018-12-08] MEDS: metFORMIN 500 MG (GLUCOPHAGE) TAB PO SCH (06:51)
[2018-12-08] MEDS: inSUlin ASPART (NovoLOG) 1 UNIT/0.01 ML (CHARGE PER UNIT) SC SCH ×2 (06:52→11:29)
--- NOTE | 2018-12-08 07:54 | Diagnostic Imaging Report ---
CHEST 1 VIEW, AP/PA ONLY Indication: Shortness of breath Comparison: 12/07/2018 Findings: No focal airspace disease in the visualized lungs. Please note that the posterior lower lobes are poorly evaluated by portable radiography. No pleural effusion or pneumothorax. Normal cardiomediastinal silhouette. Impression: No acute cardiopulmonary process by portable radiography. Dictated by: Dictated on workstation # [id number]
[2018-12-08 08:00] VITALS: BP 133/90
--- NOTE | 2018-12-08 08:16 | NUR ---
DR. JOLLEY PHONED TO UPDATE HER ON PT BP. NEW ORDERS TO REDUCED NORVASC FROM 10MG TO 5MG, HOLD COZAAR AND LISINOPRIL, REDUCE CATAPRES FROM 0.4MG TO 0.2MG
--- NOTE | 2018-12-08 08:44 | Pulmonary Progress Note ---
Subjective Time Seen by a Provider: 08:44 Subjective/Events-last exam Pt is doing better. Sepsis Event Evaluation Height, Weight, BMI Height: 5'4.00" Weight: 126lbs. 0.0oz. [id number]; 19.6 BMI Method:Stated Focused Exam Lactate Level 12/07/18 04:00: Lactic Acid Level 2.19*H 12/07/18 06:00: Lactic Acid Level 1.08 12/08/18 04:40: Lactic Acid Level 1.10 Lactic Acid Level Laboratory Tests Test 12/08/18 04:40 Lactic Acid Level 1.10 MMOL/L (0.50-2.00) Exam Exam Vital Signs Date Time Temp Pulse Resp B/P (MAP) Pulse Ox O2 Delivery O2 Flow Rate FiO2 12/08/18 07:00 87 12/08/18 05:25 98.0 86 20 103/74 (84) 98 Room Air 12/08/18 02:30 94 114/78 (90) 12/08/18 01:00 100 12/08/18 00:00 97.0 94 20 112/80 (91) 98 Room Air 12/07/18 22:30 112 177/107 (130) 12/07/18 21:40 97.6 130 18 200/102 (134) 96 Room Air 12/07/18 20:00 Room Air 12/07/18 19:00 109 12/07/18 16:00 99.0 100 16 232/100 (144) 93 Room Air 12/07/18 13:00 210/100 (136) 12/07/18 13:00 96 12/07/18 12:00 98.9 100 20 214/121 (152) 94 Room Air I & O 12/08/18 07:00 Intake Total 1300 ml Output Total 1550 ml Balance -250 ml Height & Weight Height: 5'4.00" Weight: 126lbs. 0.0oz. 57.643898dz; 19.6 BMI Method:Stated General Appearance: Anxious, Chronically ill, Moderate Distress HEENT: PERRL/EOMI Neck: Normal Inspection Respiratory: Lungs Clear, Normal Breath Sounds, No Accessory Muscle Use, No Respiratory Distress Cardiovascular: Regular Rate, Rhythm, No Edema, No JVD, No Murmur, Normal Peripheral Pulses Capillary Refill: Less Than 3 Seconds Extremity: Normal Inspection, No Pedal Edema Neurologic/Psychiatric: Alert, Oriented x3, No Motor/Sensory Deficits, features editor II- XII Norm as Tested Skin: Warm/Dry, Pallor Lymphatic: No Adenopathy Results Lab Laboratory Tests 12/07/18 04:00 12/08/18 04:40 Assessment/Plan Assessment/Plan Hypokalemia, -replace -Decrease IVF to 30cc/hr ARF -Improving Leukocytosis r/o infection -improving MS HTN Anemia -Monitor -Check occult stools Generalized weakness -Pt/ot IDDM -SSI -Stop Metformin ROSSI JOSHI DO Dec 08, 2018 08:44
[2018-12-08] MEDS ORDERED: PANTOPRAZOLE 40 MG (PROTONIX) VIAL IV SCH (09:00)
[2018-12-08] MEDS ORDERED: VITAMIN D3 1,000 UNITS (CHOLECALCIFEROL) TABLET PO SCH (09:00)
[2018-12-08] MEDS ORDERED: amLODIPine 5 MG (NORVASC) TAB ONE (09:49)
[2018-12-08] MEDS ORDERED: KCL 10 MEQ TAB (MICRO K) PO NR (09:56)
[2018-12-08] MEDS ORDERED: NS W/KCL 20 MEQ/L 1,000 ML IV SCH (10:00)
--- NOTE | 2018-12-08 10:15 | NUR ---
DISCHARGE PLANNING: Spoke with Azalea at [facility] to notify her of patient discharge today. They are tentatively for transportation to pick her up at 13:00. Notified RN Mamta, and unfinalized discharge orders and care plan sent by [employer]. No other needs identified.
[2018-12-08] MEDS: KCL 10 MEQ TAB (MICRO K) PO SCH (10:56)
[2018-12-08] MEDS: meTOproloL SUCCINATE 50 MG (TOPROL XL) TAB PO SCH (10:56)
[2018-12-08] MEDS: cloNIDine 0.2 MG (CATAPRES) TAB PO SCH (10:56)
[2018-12-08] MEDS: ALPRAZolam 0.5 MG (XANAX) TAB PO SCH (10:56)
[2018-12-08] MEDS: LACTOBACILLUS ACIDOPHILUS (PROBIOTIC) CAPSULE PO SCH (10:56)
--- NOTE | 2018-12-08 10:57 | Physical Therapy Daily Note ---
PT Daily Note-Current Subjective Patient in bed pre tx, agrees reluctantly to PT, has no complaints of pain. Patient states she has been vomiting for the last 2 days. She has not vomited today but is still nauseated. Patient does not want to get out of bed but agrees to bed exercises. Patient appears very depressed. Appearance Patient in bed post tx with nurse call, phone, tray, heels elevated on pillow. Mental Status Patient Orientation: Person, Place Transfers Therapy Code Descriptions/Definitions Functional [place] Measure: 0=Not Assessed/NA 4=Minimal Assistance 1=Total Assistance 5=Supervision or Setup 2=Maximal Assistance 6=Modified [place] 3=Moderate Assistance 7=Complete [place] Therapy Quality Codes: 6 Independent with activity with or without an assistive device 5 Patient requires set up or clean up by helper. Patient completes activity by themselves 4 Supervision or touching assist (CGA). [place] provide cues , steadying assist 3 The helper provides less than half the effort to complete the activity 2 The helper provides more than half the effort to complete the activity 1 Dependent. The helper does all the effort to complete an activity 7 Patient refused to complete or attempt activity 9 The patient did not perform the activity before the current illness or injury 88 Not attempted due to Medical conditions or safety concerns Weight Bearing Right Lower Extremity: Right Full Weight Bearing Left Lower Extremity: Left Full Weight Bearing Exercises Supine Ex: Ankle pumps, Heel Slides, Straight leg raise, Hip abd/add Supine Reps: 20 exercises above are AAROM. Bilateral ankle stretching. Treatments LE exercises Assessment Current Status: Poor Progress Patient has tight right ankle, very weak, barely assists with exercises. PT Short Term Goals Short Term Goals Time Frame: Dec 12, 2018 Transfers (B,C,W/C) (FIM): 3 Gait (FIM): 1 Distance (FIM): 1=up to 49 ft Gait Distance Comment: 10' Gait Level of Assist: 3 Gait Assistive Device: FWW PT Plan Problem List Problem List: Activity Tolerance, Functional Strength, Safety, Balance, Gait, Transfer, Bed Mobility, ROM Treatment/Plan Treatment Plan: Continue Plan of Care Treatment Plan: Bed Mobility, Education, Functional Activity Shiv, Functional Strength, Gait, Safety, Therapeutic Exercise, Transfers Treatment Duration: Dec 12, 2018 Frequency: 6 times per week Estimated Hrs Per Day: .25 hour per day Patient and/or Family Agrees t: Yes Safety Risks/Education Patient Education: Correct Positioning, Safety Issues Teaching Recipient: Patient Teaching Methods: Demonstration, Discussion Response to Teaching: Reinforcement Needed Time/GCodes Time In: 1036 Time Out: 1150 Total Billed Treatment Time: 14 Total Billed Treatment 1 visit EX Gurinder' PEBBLES BERRY PT Dec 08, 2018 10:57
[2018-12-08] MEDS: glyBURIDE 5 MG (MICRONASE) TAB PO SCH (10:58)
[2018-12-08] MEDS: B12 PO SCH (10:59)
[2018-12-08] MEDS: LEVOMEFOLATE PO SCH (10:59)
[2018-12-08] MEDS: B6 PO SCH (10:59)
[2018-12-08] MEDS: ALGAL OIL PO SCH (10:59)
[2018-12-08] MEDS ORDERED: OMEP20TA7 PO (11:23)
[2018-12-08] MEDS ORDERED: CLON0.5T13 PO (11:23)
[2018-12-08] MEDS ORDERED: ONDA8TAB13 PO (11:23)
[2018-12-08] MEDS ORDERED: CLON1PAT34 TD (11:23)
[2018-12-08] MEDS ORDERED: AMLO10TA4 PO (11:23)
--- NOTE | 2018-12-08 11:25 | Discharge Inst-Skilled Nursing ---
Discharge Inst-Skilled NF Patient Instructions Patient Problems: Severe MS Severe debility Dysphagia Goal: Independent ADL participation Consult/Follow Up/Orders Follow Up Appt.: Dr Goldsmith in 1 week Skilled NF Admit to: [facility] Certification (SNF) I certify that SNF services are required to be given on an inpatient basis because of the above named patient's need for retirement care on a continuing basis for the conditions(s) for which he/she was receiving inpatient hospital services prior to his/her transfer to the SNF. Senior Care Facility Order: Nursing Services, Ice Guard Tester-Evaluate & Treat, Physical Therapy-Evaluate & Treat, Speech Language-Evaluate & Treat ( dysphagia) Oxygen Delivery Method: Room Air Discharge Diet: Other Diet (mechanical soft diet until assessed by Speech therapy) Daily Activity as Tolerated: Yes New & Resume Previous Orders Karla Kimball Dec 08, 2018 11:24 KARLA KIMBALL DO Dec 08, 2018 11:25
--- NOTE | 2018-12-08 11:26 | Discharge Summary-Hospitalist ---
FAIZA JOLLEY DO 12/08/18 1126: Diagnosis/Chief Complaint Date of Admission Dec 03, 2018 at 19:12 Date of Discharge Discharge Date: Dec 08, 2018 Admission Diagnosis HTN Emergency Lactic Acidosis Discharge Diagnosis (1) Hypertensive urgency Status: Resolved (2) Nausea and vomiting Status: Resolved (3) Uncontrolled diabetes mellitus Status: Chronic (4) Anemia Status: Acute (5) Abdominal pain Status: Resolved (6) Multiple sclerosis Status: Chronic (7) High anion gap metabolic acidosis Status: Chronic (8) Generalized weakness Status: Acute (9) Insulin dependent diabetes mellitus Status: Chronic Discharge Summary Discharge Physical Exam Allergies: Coded Allergies: canagliflozin (Verified Allergy, Severe, ANAPHYLAXIS, 07/22/15) iodine (Unverified Adverse Reaction, Severe, migraine headache, 07/11/10) lorazepam (Verified Adverse Reaction, Severe, ELEVATED BLOOD PRESSURE, ) zolpidem (Verified Adverse Reaction, Severe, SLEEP WALK, 07/22/15) codeine (Unverified Adverse Reaction, Mild, INCREASED ACTIVITY, 08/13/10) erythromycin base (Unverified Adverse Reaction, Mild, NAUSEA, 08/13/10) Heparin Analogues (Unverified Adverse Reaction, Unknown, 08/13/10) Vitals & I&Os Vital Signs Date Time Temp Pulse Resp B/P (MAP) Pulse Ox O2 Delivery O2 Flow Rate FiO2 12/08/18 15:25 12/08/18 13:00 92 12/08/18 08:00 Room Air 12/08/18 08:00 99.4 20 95 General Appearance: Anxious, Chronically ill, Moderate Distress HEENT: PERRL/EOMI Respiratory: Lungs Clear, Normal Breath Sounds, No Accessory Muscle Use, No Respiratory Distress Cardiovascular: Regular Rate, Rhythm, No Edema, No JVD, No Murmur, Normal Peripheral Pulses Gastrointestinal: Normal Bowel Sounds, Non Tender, Soft, Tenderness ( generalized) Extremity: Normal Inspection, No Pedal Edema Skin: Warm/Dry, Pallor Neurologic/Psychiatric: Alert, Oriented x3, No Motor/Sensory Deficits, raiser helper II- XII Norm as Tested, Disoriented Hospital Course Was the Problem List Reviewed?: Yes This is a 68-year-old white female known to me from lengthy inpatient rehab hospital stay for severe weakness from multiple sclerosis who has had a significant decline in the last few months who presented to the ER with severe weakness and elevated lactic acid with hypertensive urgency. Patient had a rapid ICU management course and transferred down to the floor. Home medications were held due to nausea and vomiting and small bowel obstruction was evaluated by Dr. Garza but she did have a large bowel movement and resolve the issue. Overall patient had become so weak and in such a poor prognosis and chronic and acute debility she was deemed stable for discharge to the [facility] which will likely be permanent stay and all home medications were restarted in addition to clonidine patch which helped the hypertensive urgency to finally resolve the day before discharge. Overall prognosis poor. Labs (last 24 hrs) Microbiology 12/03/18 Blood Culture - Preliminary, Resulted No growth 12/03/18 MRSA Screen - Final, Complete MRSA not isolated Patient resulted labs reviewed. Pending Labs Imaging: Reviewed Imaging Films, Reviewed Imaging Report Discussion & Recommendations Discharge Planning: <30 minutes discharge planning Discharge Home Medications: Active Scripts Active Ondansetron Odt (Ondansetron) 8 Mg Tab.rapdis 8 Mg PO Q6H Omeprazole 20 Mg Tablet.dr 20 Mg PO DAILY 30 Days Clonidine TTS 2 Patch (Clonidine) 1 Each Patch.tdwk 1 Patch TD Q7D Norvasc (Amlodipine Besylate) 10 Mg Tablet 10 Mg PO DAILY 30 Days Clonazepam 0.5 Mg Tablet 0.5 Mg PO BID PRN Reported Clonidine HCl 0.1 Mg Tablet 0.2 Mg PO TID TAKES 2 (0.1MG) TABLETS Vitamin C (Ascorbate Calcium) 500 Mg Tablet 500 Mg PO 1200 Hydrocortisone Valerate 15 Gm Cream..g. TP BID PRN Probiotic (Lactobacillus Combination No.4) 1 Each Capsule 1 Cap PO DAILY Magnesium Citrate 100 Mg Tablet 100 Mg PO 1200 Multivitamins with Minerals (Multivitamin with Minerals) 1 Each Tablet 1 Tab PO 1200 Glyburide 5 Mg Tablet 5 Mg PO 1800 Metanx Capsule (Levomefolate/B6/B12/Algal Oil) 1 Each Capsule 1 Cap PO BID Vitamin D3 (Cholecalciferol (Vitamin D3)) 2,000 Unit Tab.chew 1,000 Unit PO DAILY Aspirin EC (Aspirin) 81 Mg Tablet.dr 81 Mg PO HS Fluticasone Propionate 16 Gm Lutz.susp 2 Sprays NS DAILY PRN Levemir Flextouch (Insulin Detemir) 100 Unit/1 Ml Insuln.pen 8 Units SC HS Glyburide 5 Mg Tablet 2.5 Mg PO DAILY TAKES 1/2 (5MG) TABLET WITH BREAKFAST AND 1 (5MG) TABLET WITH SUPPER Metoprolol Succinate 100 Mg Tab.er.24h 50 Mg PO BID TAKES 1/2 (100MG) TABLET Potassium Chloride 10 Meq Tablet.er 10 Meq PO DAILY Instructions to patient/family Please see electronic discharge instructions given to patient. Clinical Quality Measures DVT/VTE Risk/Contraindication: Risk Factor Score Per Nursin RFS Level Per Nursing on Admit: 4+=Very High DAVEAUSTIN GUILLORY MEDICAL STUDENT 12/08/18 1706: Diagnosis/Chief Complaint Discharge Date: Dec 08, 2018 Admission Diagnosis Hypertensive urgency Discharge Diagnosis Hypertensive urgency Discharge Summary Procedures/Consulations General surgery for potential SBO Discharge Physical Exam Allergies: Coded Allergies: canagliflozin (Verified Allergy, Severe, ANAPHYLAXIS, 07/22/15) iodine (Unverified Adverse Reaction, Severe, migraine headache, 07/11/10) lorazepam (Verified Adverse Reaction, Severe, ELEVATED BLOOD PRESSURE, ) zolpidem (Verified Adverse Reaction, Severe, SLEEP WALK, 07/22/15) codeine (Unverified Adverse Reaction, Mild, INCREASED ACTIVITY, 08/13/10) erythromycin base (Unverified Adverse Reaction, Mild, NAUSEA, 08/13/10) Heparin Analogues (Unverified Adverse Reaction, Unknown, 08/13/10) General Appearance: No Apparent Distress, WD/WN, Chronically ill HEENT: PERRL/EOMI, Normal ENT Inspection, Moist Mucous Membranes Respiratory: Lungs Clear, Normal Breath Sounds, No Accessory Muscle Use, No Respiratory Distress Cardiovascular: Regular Rate, Rhythm, No Edema, No Murmur, Normal Peripheral Pulses Gastrointestinal: Normal Bowel Sounds, Non Tender, Soft Extremity: Normal Capillary Refill, Normal Range of Motion, No Pedal Edema Skin: Normal Color, Warm/Dry Neurologic/Psychiatric: Alert, Oriented x3 (Had a hard time describing but place, but sufficient), raiser helper II-XII Norm as Tested, Motor Weakness (generalized) Hospital Course Was the Problem List Reviewed?: Yes Pt is 68 yo female who presented to ER by EMS from home complaining of generalized weakness. This is not new; she was worked up for the same complaint at [facility] in October and spent some time in inpatient rehab. Pt has a diagnosis of MS. The pt has not gone to her follow up appointments w/ Neurology at . She denied any other complaints on arrival. In the ED she was found to have high anion gap metabolic acidosis and elevated lactate and was admitted for further workup and potential sepsis. The pt was also extremely hypertensive , and there was worry of hypertensive emergency. Multiple interventions were necessary to control her BP, including a clonidine patch and lasix. While admitted, the pt developed abdominal pain and vomited several times over the course of the day. General surgery was consulted and a abdominal XR ordered, but the pt had a large bowel movement, her pain and vomiting resolved, and this was not pursued further. She will be [facility]. Imaging: Reviewed Imaging Films, Reviewed Imaging Report Discussion & Recommendations Discharge Planning: <30 minutes discharge planning Problem Qualifiers (1) Uncontrolled diabetes mellitus: Diabetes mellitus type: type 2 Glycemic state: with hyperglycemia Qualified Codes: E11.65 - Type 2 diabetes mellitus with hyperglycemia (2) Anemia: Anemia type: unspecified type Qualified Codes: D64.9 - Anemia, unspecified (3) Abdominal pain: Abdominal location: generalized Qualified Codes: R10.84 - Generalized abdominal pain FAIZA JOLLEY DO Dec 08, 2018 11:26 A[employer]IN VILLA MEDICAL STUDENT Dec 08, 2018 17:06
[2018-12-08] MEDS: MULTIVIT W/MINERALS TAB (THERAGRAN M) PO SCH (11:29)
[2018-12-08] MEDS: ASCORBIC ACID (VIT C) 500 MG TABLET PO SCH (11:29)
--- NOTE | 2018-12-08 13:16 | Occ Therapy Progress Note ---
Therapy Progress Note Have attempted to see pt 3x's today, unable due to other disciplines in room and pt fatigued from vomiting yesterday and not sleeping for the last 4 days. Pt to discharge today to [place]. JOREG TERRY Dec 08, 2018 13:16
--- NOTE | 2018-12-08 13:22 | NUR ---
CM/SS. Patient will discharge to new skilled placement with [facility] as earlier noted. CARE Assessment completed with patient and her spouse Clinton, processed with [facility]. Copy faxed to [facility], packet prepared to accompany patient. Arrangements were in partnership with WILBERT/Keith.
[2018-12-09] MEDS ORDERED: amLODIPine 5 MG (NORVASC) TAB PO SCH (09:00)
[2018-12-10] MEDS ORDERED: PATCH REMOVAL TP ONE (12:00)
[2018-12-14] MEDS ORDERED: PATCH REMOVAL TP ONE (08:59)
== END 2018-12-08 13:35 | DRG 305 ==
LOC: EDUNIT# 17:50 → ER 17:51 → 4TH 19:12 → ICU 12-04 04:51 → 4TH 12-05 21:56
PROVIDERS: ADMIT Family Medicine; ATTEND Family Medicine
DX: I16.0 Hypertensive urgency (principal); E87.2 Acidosis; N17.9 Acute kidney failure, unspecified; G35 Multiple sclerosis; E83.42 Hypomagnesemia; E11.65 Type 2 diabetes mellitus with hyperglycemia; F41.9 Anxiety disorder, unspecified; F32.9 Major depressive disorder, single episode, unspecified; J30.2 Other seasonal allergic rhinitis; I10 Essential (primary) hypertension; E78.00 Pure hypercholesterolemia, unspecified; R53.1 Weakness; E87.6 Hypokalemia; D72.829 Elevated white blood cell count, unspecified; R11.2 Nausea with vomiting, unspecified; D64.9 Anemia, unspecified; R60.0 Localized edema; K59.09 Other constipation; R10.84 Generalized abdominal pain; T38.0X5A Adverse effect of glucocorticoids and synthetic analogues, initial encounter; Z86.73 Personal history of transient ischemic attack (TIA), and cerebral infarction without residual deficits; Z79.4 Long term (current) use of insulin; Z87.19 Personal history of other diseases of the digestive system; Z91.81 History of falling; Z88.5 Allergy status to narcotic agent; Z88.1 Allergy status to other antibiotic agents
CPT/HCPCS: 36415; 51702; 70450; 71045; 72170; 74018; 80048; 80053; 80306; 80307; 81000; 82010; 82040; 82140; 82247; 82274; 82375; 82693; 82800; 82805; 82962; 83605; 83690; 83735; 83880; 83930; 84075; 84100; 84155; 84443; 84450; 84460; 84484; 84600; 85007; 85025; 85027; 85610; 85730; 87040; 87081; 87804; 93005; 93041; 93306; 96365; 96375

== ENCOUNTER 2018-12-09 19:12 | Emergency (ER) | payer MEDICARE ==
[~2018-12-09] VITALS: Ht 162.6 cm; Wt 54.0 kg
[~2018-12-09 19:12] MED LIST changes: +AMLO10TA4 PO; +CLON0.5T13 PO; +CLON1PAT34 TD; +OMEP20TA7 PO; +ONDA8TAB13 PO
--- OUTSIDE RECORDS SUMMARY | 2018-12-09 19:17 | XMS REPORT | Clinical Summary ---
Author Author [facility] Organization [facility] Address Unknown Phone Unavailable Care Team Providers Care Systems Testing Laboratory Technician Name Role Phone PCP Unavailable Source Comments Some departments are not documenting in the electronic medical record. If you do not see the information that you expected, contact Release of Information in the Health Information Management department at [phone] for further assistance in locating additional records.[facility] Allergies Not on File Medications Not [...] IMAGING Routine 09/24/2018 Diagnosis unknown 12:00 AM WASTE MACHINE TENDER MRI HEAD EXTERNAL IMAGING Routine 09/23/2018 Diagnosis unknown 12:15 AM WASTE MACHINE TENDER CT HEAD EXTERNAL IMAGING Routine 09/23/2018 Diagnosis unknown 12:00 AM WASTE MACHINE TENDER from Last 3 Months Results * MRI HEAD EXTERNAL IMAGING (09/24/2018 12:00 AM WASTE MACHINE TENDER) Only the most recent of 2 results within the time period is included. Narrative Performed At This order has been auto finalized and does not contain a result. * CT HEAD EXTERNAL IMAGING (09/23/2018 12:00 AM WASTE MACHINE TENDER) Narrative Performed At This order has been auto finalized and does not contain a result. from Last 3 Months Advance Directives Patient has advance care planning documents on file. For more information, please contact: [facility] [address] [place] [address]
--- OUTSIDE RECORDS SUMMARY | 2018-12-09 19:17 | XMS REPORT | Encounter Summary ---
Author Author [facility] Organization [facility] Address Unknown Phone Unavailable Care Team Providers Care Insurance Agents Supervisor Name Role Phone PCP Unavailable Encounter Details Care Team Description Date Type Department 09/23/2018 Hospital [facility] Hospital Radiology [facility] [address] [place] [address] Social History Date Tobacco Use Types Packs/Day [...] IMAGING Routine 09/23/2018 Diagnosis unknown 12:15 AM INTELLIGENCE GROUP SUPERVISOR in this encounter Results * MRI HEAD EXTERNAL IMAGING (09/23/2018 12:15 AM INTELLIGENCE GROUP SUPERVISOR) Narrative Performed At This order has been auto finalized and does not contain a result. in this encounter Visit Diagnoses Diagnosis Diagnosis unknown Other unknown and unspecified cause of morbidity or mortality in this encounter
--- OUTSIDE RECORDS SUMMARY | 2018-12-09 19:17 | XMS REPORT | Encounter Summary ---
Author Author [facility] Organization [facility] Address Unknown Phone Unavailable Care Team Providers Care Parking Lot Supervisor Name Role Phone PCP Unavailable Encounter Details Care Team Description Date Type Department 09/23/2018 Hospital [facility] Hospital Radiology [facility] [address] [place] [address] Social History Date Tobacco Use Types Packs/Day [...] IMAGING Routine 09/23/2018 Diagnosis unknown 12:00 AM CYCLE COUNTER in this encounter Results * CT HEAD EXTERNAL IMAGING (09/23/2018 12:00 AM CYCLE COUNTER) Narrative Performed At This order has been auto finalized and does not contain a result. in this encounter Visit Diagnoses Diagnosis Diagnosis unknown Other unknown and unspecified cause of morbidity or mortality in this encounter
--- OUTSIDE RECORDS SUMMARY | 2018-12-09 19:17 | XMS REPORT | Encounter Summary ---
Author Author [facility] Organization [facility] Address Unknown Phone Unavailable Care Team Providers Care Pharmacy Technician Trainee Name Role Phone PCP Unavailable Encounter Details Care Team Description Date Type Department 09/24/2018 Hospital [facility] Hospital Radiology [facility] [address] [place] [address] Social History Date Tobacco Use Types Packs/Day [...] IMAGING Routine 09/24/2018 Diagnosis unknown 12:00 AM LITIGATION PARTNER in this encounter Results * MRI HEAD EXTERNAL IMAGING (09/24/2018 12:00 AM LITIGATION PARTNER) Narrative Performed At This order has been auto finalized and does not contain a result. in this encounter Visit Diagnoses Diagnosis Diagnosis unknown Other unknown and unspecified cause of morbidity or mortality in this encounter
[2018-12-09 20:56] LABS: BILIRUBIN,URINE NEGATIVE (NEGATIVE); CLARITY,URINE CLEAR; COLOR,URINE YELLOW; GLUCOSE, URINE (UA) 4+ (NEGATIVE); KETONES,URINE NEGATIVE (NEGATIVE); LEUKOCYTE ESTERASE ,URINE 2+ (NEGATIVE); NITRITE,URINE NEGATIVE (NEGATIVE); PH,URINE 5 (5-9); PROTEIN,URINE 3+ (NEGATIVE); UROBILINOGEN,URINE NORMAL (NORMAL)
[2018-12-09 21:03] LABS: BACTERIA,URINE TRACE /HPF; RBC,URINE 0-2 /HPF
[2018-12-09] MEDS ORDERED: NS IV 1000 ML 1,000 ML IV ONE (21:39)
--- NOTE | 2018-12-09 21:52 | ED General ---
General Chief Complaint: Glucose Problems Stated Complaint: HIGH BLOOD SUGAR Nursing Triage Note: PT PRESENTS TO ER WITH POSSIBLE UTI, AND HIGH BLOOD SUGAR. PT STATES BLOOD SUGAR WAS IN DEBORAH 500S. Nursing Sepsis Screen: No Definite Risk Source of Information: Patient Exam Limitations: No Limitations History of Present Illness Date Seen by Provider: Dec 09, 2018 Time Seen by Provider: 21:28 Initial Comments Here with concerns for possible urinary tract infection and elevated blood sugar. She has been increasingly weak today. Blood sugar was noted to be in the 500s at the detention today. Just recently overcame a vomiting and diarrhea illness. That had gotten better and she was doing better this morning when she started having fell urine and weakness consistent with urinary tract infection for her. Denies current vomiting or diarrhea. No fevers. Timing/Duration: 12-24 Hours Severity: Moderate Associated Systoms: No Chest Pain, No Fever/Chills; Malaise; No Nausea/Vomiting , No Shortness of Air; Weakness Allergies and Home Medications Allergies Coded Allergies: canagliflozin (Verified Allergy, Severe, ANAPHYLAXIS, 07/22/15) iodine (Unverified Adverse Reaction, Severe, migraine headache, 07/11/10) lorazepam (Verified Adverse Reaction, Severe, ELEVATED BLOOD PRESSURE, ) zolpidem (Verified Adverse Reaction, Severe, SLEEP WALK, 07/22/15) codeine (Unverified Adverse Reaction, Mild, INCREASED ACTIVITY, 08/13/10) erythromycin base (Unverified Adverse Reaction, Mild, NAUSEA, 08/13/10) Heparin Analogues (Unverified Adverse Reaction, Unknown, 08/13/10) Home Medications Amlodipine Besylate 10 Mg Tablet, 10 MG PO DAILY Prescribed by: FAIZA JOLLEY on 12/08/181122 Ascorbate Calcium 500 Mg Tablet, 500 MG PO 1200, (Reported) Aspirin 81 Mg Tablet.dr, 81 MG PO HS, (Reported) Cholecalciferol (Vitamin D3) 2,000 Unit Tab.chew, 1,000 UNIT PO DAILY, (Reported ) Clonazepam 0.5 Mg Tablet, 0.5 MG PO BID PRN for ANXIETY Prescribed by: FAIZA JOLLEY on 12/08/181122 Clonidine 1 Each Patch.tdwk, 1 PATCH TD Q7D Prescribed by: FAIZA JOLLEY on 12/08/181122 Clonidine HCl 0.1 Mg Tablet, 0.2 MG PO TID, (Reported) TAKES 2 (0.1MG) TABLETS Fluticasone Propionate 16 Gm [place].susp, 2 SPRAYS NS DAILY PRN for ALLERGIES/ CONGESTION, (Reported) Glyburide 5 Mg Tablet, 2.5 MG PO DAILY, (Reported) TAKES 1/2 (5MG) TABLET WITH BREAKFAST AND 1 (5MG) TABLET WITH SUPPER Glyburide 5 Mg Tablet, 5 MG PO 1800, (Reported) Hydrocortisone Valerate 15 Gm Cream..g., TP BID PRN for ITCHING, (Reported) Insulin Detemir 100 Unit/1 Ml Insuln.pen, 8 UNITS SC HS, (Reported) Lactobacillus Combination No.4 1 Each Capsule, 1 CAP PO DAILY, (Reported) Levomefolate/B6/B12/Algal Oil 1 Each Capsule, 1 CAP PO BID, (Reported) Magnesium Citrate 100 Mg Tablet, 100 MG PO 1200, (Reported) Metoprolol Succinate 100 Mg Tab.er.24h, 50 MG PO BID, (Reported) TAKES 1/2 (100MG) TABLET Multivitamin with Minerals 1 Each Tablet, 1 TAB PO 1200, (Reported) Omeprazole 20 Mg Tablet.dr, 20 MG PO DAILY Prescribed by: FAIZA JOLLEY on 12/08/18 1123 Ondansetron 8 Mg Tab.rapdis, 8 MG PO Q6H Prescribed by: FAIZA JOLLEY on 12/08/18 1123 Potassium Chloride 10 Meq Tablet.er, 10 MEQ PO DAILY, (Reported) Patient Home Medication List Home Medication List Reviewed: Yes Review of Systems Review of Systems Constitutional: see HPI; No chills, No fever EENTM: no symptoms reported Respiratory: No cough, No short of breath Cardiovascular: No chest pain, No palpitations Gastrointestinal: No abdominal pain, No nausea, No vomiting Genitourinary: No dysuria; incontinence; No pain : No Musculoskeletal: No back pain, No muscle pain Skin: no symptoms reported Psychiatric/Neurological: See HPI; Denies Headache; Weakness Hematologic/Lymphatic: No Symptoms Reported All Other Systems Reviewed Negative Unless Noted: Yes Past Ogqpmzl-Cnnqei-Bsmwlf Hx Past Med/Social Hx: Reviewed Nursing Past Med/Soc Hx Patient Social History Alcohol Use: Denies Use Recreational Drug Use: No Smoking Status: Never a Smoker 2nd Hand Smoke Exposure: No Recent Foreign Travel: No Contact w/Someone Who Travel: No Recent Infectious Disease Expo: No Recent Hopitalizations: Yes (DC'D 12/08/18) Immunizations Up To Date Tetanus Booster (TDap): More than 5yrs Date of Pneumonia Vaccine: Aug 01, 2012 Date of Influenza Vaccine: Aug 26, 2017 Seasonal Allergies Seasonal Allergies: Yes Past Medical History Surgeries: Yes (thoracentesis) Appendectomy, Gallbladder, Hysterectomy, Pancreatic Respiratory: Yes (Thoracentesis) Cardiac: Yes High Cholesterol, Hypertension Neurological: Yes Headaches /Migraines, Multiple Sclerosis, Stroke, TIA 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 Disorders: No 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, 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 Genitourinary: Yes Bladder Infection Gastrointestinal: Yes Chronic Constipation, Pancreatitis Musculoskeletal: Yes (generalized weakness of all extremities) Endocrine: Yes (History of severe electrolyte disturbances) Diabetes, Insulin dep HEENT: No Cancer: No Psychosocial: Yes Anxiety, Depression Integumentary: No Blood Disorders: No Adverse Reaction/Blood Tranf: No Family Medical History Reviewed Nursing Family Hx Arthritis 19 MOTHER Cardiovascular disease 19 FATHER Heart Disease, CVA Physical Exam Vital Signs Vital Signs - First Documented 12/09/18 19:53 Temp 98.9 Pulse 96 Resp 20 B/P (MAP) 206/89 (128) Pulse Ox 98 O2 Delivery Room Air Capillary Refill : Less Than 3 Seconds Height, Weight, BMI Height: 5'4.00" Weight: 119lbs. 0.0oz. 53.044005tw; 19.6 BMI Method:Stated General Appearance: No Apparent Distress, Chronically ill HEENT: PERRL/EOMI, Pharynx Normal Neck: Non Tender, Supple Respiratory: Lungs Clear, Normal Breath Sounds Cardiovascular: Regular Rate, Rhythm, No Murmur Gastrointestinal: Non Tender, Soft Back: Normal Inspection, No CVA Tenderness, No Vertebral Tenderness Extremity: Normal Range of Motion, Non Tender, Other (global weakness) Neurologic/Psychiatric: Alert, Oriented x3 Skin: Normal Color, Warm/Dry Focused Exam Lactate Level 12/09/18 21:45: Lactic Acid Level 2.59*H 12/09/18 23:45: Lactic Acid Level 2.35*H Lactic Acid Level Laboratory Tests Test 12/09/18 21:45 12/09/18 23:45 Lactic Acid Level 2.59 MMOL/L (0.50-2.00) *H 2.35 MMOL/L (0.50-2.00) *H Progress/Results/Core Measures Suspected Sepsis Recent Fever Within 48 Hours: No Infection Criteria Present: None New/Unexplained Altered Menta: No Sepsis Screen: No Definite Risk SIRS Temperature:98.9 Pulse: 96 Respiratory Rate: 20 Laboratory Tests 12/09/18 21:45: White Blood Count 10.8 Blood Pressure 206 /89 Mean: 128 12/09/18 21:45: Lactic Acid Level 2.59*H 12/09/18 23:45: Lactic Acid Level 2.35*H Laboratory Tests 12/09/18 21:45: Creatinine 1.69H, Platelet Count 204, Total Bilirubin 0.4 Results/Orders Lab Results Laboratory Tests Test 12/09/18 20:36 12/09/18 21:45 12/09/18 22:06 12/09/18 23:31 Range/Units Urine Color YELLOW Urine Clarity CLEAR Urine pH 5 5-9 Urine Specific [place] 1.015 L 1.016-1.022 Urine Protein 3+ H NEGATIVE Urine Glucose (UA) 4+ H NEGATIVE Urine Ketones NEGATIVE NEGATIVE Urine Nitrite NEGATIVE NEGATIVE Urine Bilirubin NEGATIVE NEGATIVE Urine Urobilinogen NORMAL NORMAL MG/DL Urine Leukocyte Esterase 2+ H NEGATIVE Urine RBC (Auto) 1+ H NEGATIVE Urine RBC 0-2 /HPF Urine WBC 5-10 H /HPF Urine Crystals NONE /LPF Urine Bacteria TRACE /HPF Urine Casts NONE /LPF Urine Mucus NEGATIVE /LPF Urine Culture Indicated YES White Blood Count 10.8 4.3-11.0 10^3/uL Red Blood Count 4.82 4.35-5.85 10^6/uL Hemoglobin 13.4 11.5-16.0 G/DL Hematocrit 41 35-52 % Mean Corpuscular Volume 85 80-99 FL Mean Corpuscular Hemoglobin 28 25-34 PG Mean Corpuscular Hemoglobin Concent 33 32-36 G/DL Red Cell Distribution Width 16.4 H 10.0-14.5 % Platelet Count 204 130-400 10^3/uL Mean Platelet Volume 11.7 H 7.4-10.4 FL Neutrophils (%) (Auto) 78 H 42-75 % Lymphocytes (%) (Auto) 12 12-44 % Monocytes (%) (Auto) 10 0-12 % Eosinophils (%) (Auto) 1 0-10 % Basophils (%) (Auto) 0 0-10 % Neutrophils # (Auto) 8.4 H 1.8-7.8 X 10^3 Lymphocytes # (Auto) 1.3 1.0-4.0 X 10^3 Monocytes # (Auto) 1.1 H 0.0-1.0 X 10^3 Eosinophils # (Auto) 0.1 0.0-0.3 10^3/uL Basophils # (Auto) 0.0 0.0-0.1 10^3/uL Sodium Level 141 135-145 MMOL/L Potassium Level 3.2 L 3.6-5.0 MMOL/L Chloride Level 96 L 98-107 MMOL/L Carbon Dioxide Level 29 21-32 MMOL/L Anion Gap 16 H 5-14 MMOL/L Blood Urea Nitrogen 47 H 7-18 MG/DL Creatinine 1.69 H 0.60-1.30 MG/DL Estimat Glomerular Filtration Rate 30 BUN/Creatinine Ratio 28 Glucose Level 352 H 70-105 MG/DL Lactic Acid Level 2.59 *H 0.50-2.00 MMOL/L Calcium Level 9.9 8.5-10.1 MG/DL Corrected Calcium 9.8 8.5-10.1 MG/DL Total Bilirubin 0.4 0.1-1.0 MG/DL Aspartate Amino Transf (AST/SGOT) 19 5-34 U/L Alanine Aminotransferase (ALT/SGPT) 39 0-55 U/L Alkaline Phosphatase 99 40-136 U/L C-Reactive Protein High Sensitivity 0.82 H 0.00-0.50 MG/DL Total Protein 6.8 6.4-8.2 GM/DL Albumin 4.1 3.2-4.5 GM/DL Glucometer 302 H 148 H 70-110 MG/DL Test 12/09/18 23:45 Range/Units Lactic Acid Level 2.35 *H 0.50-2.00 MMOL/L My Orders Orders - JENNY SUN MD Ua Culture If Indicated (12/09/18 20:51) Urine Culture (12/09/18 20:36) Cbc With Automated Diff (12/09/18 21:39) Comprehensive Metabolic Panel (12/09/18 21:39) Hs C Reactive Protein (12/09/18 21:39) Lactic Acid Analyzer (12/09/18 21:39) Blood Culture (12/09/18 21:39) Saline Lock/Iv-Start (12/09/18 21:39) Ns Iv 1000 Ml (Sodium Chloride 0.9%) (12/09/18 21:39) Accucheck Stat ONCE (12/09/18 21:39) Insulin (Regular) Human (Humulin R (Per (12/09/18 22:30) Ceftriaxone For Iv Use (Rocephin For I (12/09/18 22:45) Accucheck Stat ONCE (12/09/18 23:25) Medications Given in ED Current Medications Medications Dose Ordered Sig/Olivia Route Start Time Stop Time Status Last Admin Dose Admin Ceftriaxone Sodium 1000 mg/ Sterile Water 10 ml @ 200 mls/hr ONCE ONCE IV 12/09/18 22:45 12/09/18 22:47 DC 12/09/18 22:54 200 MLS/HR Sodium Chloride 1,000 ml @ 0 mls/hr Q0M ONCE IV 12/09/18 21:39 12/09/18 21:42 DC 12/09/18 22:00 0 MLS/HR Vital Signs/I&O 12/09/18 19:53 Temp 98.9 Pulse 96 Resp 20 B/P (MAP) 206/89 (128) Pulse Ox 98 O2 Delivery Room Air 12/10/18 00:00 Intake Total 1010 ml Balance 1010 ml Capillary Refill : Less Than 3 Seconds Blood Pressure Mean: 128 Progress Note : Progress Note Seen and evaluated. IV, labs, UA, blood cultures and lactic acid ordered. Normal saline 1 L bolus. Monitor patient. UTI noted. Rocephin 1 g IV. Patient does have elevated lactic acid at 2.59. Unsure if this is related to diabetes, UTI or metformin. She has had lactic acidosis previously that did not seem to be associated with urinary tract infection but was on metformin at that time. It stopped but apparently has been restarted due to abnormal blood sugars. We will repeat lactic acid and see how she is feeling. 0020: Repeat lactic acid 2.35. Overall patient is feeling better after fluids and antibiotics. I have looked at patient's history and she has had enterococcus faecalis in the past that would be sensitive to oral nitrofurantoin. We will initiate that outpatient. I discuss findings and concerns at length with patient and family. They would like to go back to detention if possible and I think this would be reasonable if she is on treatment. I will write outpatient prescription for nitrofurantoin. Discharged home with return precautions. Patient and family verbalize understanding instructions and agreement with plan. Departure Impression Primary Impression: Urinary tract infection Qualified Codes: N30.00 - Acute cystitis without hematuria Additional Impression: Uncontrolled diabetes mellitus Qualified Codes: E10.65 - Type 1 diabetes mellitus with hyperglycemia Disposition: HOME, SELF-CARE Condition: Stable Departure-Patient Inst. Decision time for Depature: 00:31 Referrals: DECLAN SANTOS MD (PCP/Family) Primary Care Physician Patient Instructions: Hyperglycemia, Adult (DC), Urinary Tract Infection, Adult (DC) Add. Discharge Instructions: All discharge instructions reviewed with patient and/or family. Voiced understanding. Take medications as directed. Follow-up with your doctor early next week for recheck and further evaluation. Return for increasing weakness, fever, vomiting , decreased urination, breathing problems or other concerns as needed. Scripts Nitrofurantoin Macrocrystal (Nitrofurantoin) 100 Mg Capsule 100 MG PO BID, #14 CAP 0 Refills Prov: JENNY SUN MD 12/10/18 Copy Copies To 1: DECLAN SANTOS MD, TIMOTHY D MD Dec 09, 2018 21:52
[2018-12-09 22:08] LABS: BASOPHILS % (AUTO) 0 % (0-10); EOSINOPHILS # (AUTO) 0.1 10^3/uL (0.0-0.3); EOSINOPHILS % (AUTO) 1 % (0-10); HEMATOCRIT 41 % (35-52); HEMOGLOBIN 13.4 G/DL (11.5-16.0); LYMPHOCYTES # (AUTO) 1.3 X 10^3 (1.0-4.0); LYMPHOCYTES % (AUTO) 12 % (12-44); MEAN CORPUSCULAR HEMOGLOBIN 28 PG (25-34); MEAN CORPUSCULAR HGB CONC 33 G/DL (32-36); MEAN CORPUSCULAR VOLUME 85 FL (80-99); MEAN PLATELET VOLUME 11.7 FL (7.4-10.4); MONOCYTES # (AUTO) 1.1 X 10^3 (0.0-1.0); MONOCYTES % (AUTO) 10 % (0-12); NEUTROPHILS # (AUTO) 8.4 X 10^3 (1.8-7.8); NEUTROPHILS % (AUTO) 78 % (42-75); PLATELET COUNT 204 10^3/uL (130-400); RED CELL DISTRIBUTION WIDTH 16.4 % (10.0-14.5); WHITE BLOOD COUNT 10.8 10^3/uL (4.3-11.0)
[2018-12-09] MEDS ORDERED: inSUlin (REGULAR) HUMAN 1 UNIT/0.01 ML (CHARGE PER UNIT) IV STA (22:30)
[2018-12-09 22:32] LABS: ALBUMIN 4.1 GM/DL (3.2-4.5); BILIRUBIN,TOTAL 0.4 MG/DL (0.1-1.0); CALCIUM 9.9 MG/DL (8.5-10.1); CREATININE SERUM 1.69 MG/DL (0.60-1.30); POTASSIUM 3.2 MMOL/L (3.6-5.0); TOTAL PROTEIN 6.8 GM/DL (6.4-8.2)
[2018-12-09] MEDS ORDERED: cefTRIAXone FOR IV USE 1,000 MG in WATER (STERILE) FOR INJECTION 10 ML IV ONE (22:45)
[2018-12-10] MEDS ORDERED: NITR100C PO (00:33)
[2018-12-10 00:43] VITALS: BP 164/99
== END 2018-12-10 01:12 | disposition home or self-care (01) ==
LOC: EDUNIT# 19:12 → ER 19:13
DX: N39.0 Urinary tract infection, site not specified (principal); E11.65 Type 2 diabetes mellitus with hyperglycemia; I10 Essential (primary) hypertension; G43.909 Migraine, unspecified, not intractable, without status migrainosus; G35 Multiple sclerosis; F41.9 Anxiety disorder, unspecified; F32.9 Major depressive disorder, single episode, unspecified; Z86.73 Personal history of transient ischemic attack (TIA), and cerebral infarction without residual deficits; Z91.041 Radiographic dye allergy status; Z88.5 Allergy status to narcotic agent; Z82.49 Family history of ischemic heart disease and other diseases of the circulatory system; Z88.8 Allergy status to other drugs, medicaments and biological substances; Z88.1 Allergy status to other antibiotic agents; Z79.82 Long term (current) use of aspirin; Z79.4 Long term (current) use of insulin; Z90.710 Acquired absence of both cervix and uterus; Z90.49 Acquired absence of other specified parts of digestive tract; Z98.890 Other specified postprocedural states
CPT/HCPCS: 36415; 80053; 81000; 82962; 83605; 85025; 86141; 87040; 87088

== ENCOUNTER → 2018-12-16 | Outpatient (CLI) | payer MEDICARE ==
[~2018-12-16] MED LIST changes: +NITR100C PO
[2018-12-16 11:50] LABS: BILIRUBIN,URINE NEGATIVE (NEGATIVE); CLARITY,URINE CLEAR; COLOR,URINE YELLOW; GLUCOSE, URINE (UA) 4+ (NEGATIVE); KETONES,URINE NEGATIVE (NEGATIVE); LEUKOCYTE ESTERASE ,URINE NEGATIVE (NEGATIVE); NITRITE,URINE NEGATIVE (NEGATIVE); PH,URINE 7 (5-9); PROTEIN,URINE 1+ (NEGATIVE); UROBILINOGEN,URINE NORMAL (NORMAL)
[2018-12-16 12:04] LABS: BACTERIA,URINE NEGATIVE /HPF; HYALINE CASTS, URINE RARE /LPF; SQUAMOUS EPITHELIAL CELL,UR 0-2 /HPF
== END ==
LOC: MERGE 11:46
DX: N39.0 Urinary tract infection, site not specified (principal)
CPT/HCPCS: 81000

== ENCOUNTER → 2019-03-01 | Outpatient (CLI) | payer MEDICARE ==
--- NOTE | 2019-03-01 16:14 | Diagnostic Imaging Report ---
INDICATION: Pain in the great toe. COMPARISON: None. FINDINGS: Three views of the left great toe show no fractures, dislocations, or other acute bony abnormalities identified. Joint spaces are well maintained throughout. The soft tissues appear unremarkable. No radiopaque foreign bodies are identified. IMPRESSION: No acute fractures or dislocations of the left great toe. Dictated by: Dictated on workstation # [id number]
== END ==
LOC: RAD 15:20
PROVIDERS: ATTEND Nurse Practitioner Family
DX: M79.675 Pain in left toe(s) (principal)
CPT/HCPCS: 73660

== ENCOUNTER 2019-07-31 09:45 | Outpatient (RCR) | payer MEDICARE ==
[2019-08-04] MEDS ORDERED: GLIP5TAB26 PO (10:37)
[2019-08-04] MEDS ORDERED: CETI10TA20 PO (10:37)
[2019-08-04] MEDS ORDERED: SULF-222 PO (10:37)
[2019-08-04] MEDS ORDERED: INSU100I13 SC (10:37)
[2019-08-04] MEDS ORDERED: OXYB10TA PO (10:37)
[2019-08-04] MEDS ORDERED: MIRT7.5T8 PO (10:37)
[2019-08-04] MEDS ORDERED: CLON0.2T PO (10:37)
[2019-08-04] MEDS ORDERED: LOSA50TA63 PO (10:37)
[2019-08-04] MEDS ORDERED: MAGN400T39 PO (10:37)
[2019-08-04] MEDS ORDERED: ELEMENTAL MAGNESIUM PO (10:37)
[2019-08-11] MEDS ORDERED: METO50TA15 PO (07:44)
[2019-08-11] MEDS ORDERED: HYDR25TA4 PO (07:44)
[2019-08-11] MEDS ORDERED: LOSA100T57 PO (07:44)
[2019-08-11] MEDS ORDERED: CLOP75TA28 PO (07:44)
[2019-08-11] MEDS ORDERED: ATOR40TA PO (07:44)
[2019-08-14] MEDS ORDERED: METO-395 PO (08:20)
[2019-08-14] MEDS ORDERED: LOSA50TA63 PO (08:20)
[2019-08-17] MEDS ORDERED: SENN-20 PO (08:11)
[2019-08-17] MEDS ORDERED: CLOP75TA28 PO (08:11)
[2019-08-17] MEDS ORDERED: OXC5T PO (08:11)
[2019-08-17] MEDS ORDERED: AMLO10TA7 PO (08:11)
[2019-08-17] MEDS ORDERED: HYDR25TA4 PO (08:11)
[2019-08-17] MEDS ORDERED: INSU100V16 SQ (08:11)
[2019-08-17] MEDS ORDERED: ATOR40TA PO (08:11)
[2019-08-17] MEDS ORDERED: LOSA100T57 PO (08:11)
[2019-08-17] MEDS ORDERED: INSU100V5 SQ (08:11)
== END 2019-08-25 13:32 | disposition home or self-care (01) ==
PROVIDERS: ATTEND Nurse Practitioner Family
DX: M62.81 Muscle weakness (generalized) (principal); R27.8 Other lack of coordination; R26.89 Other abnormalities of gait and mobility

== ENCOUNTER 2019-08-03 19:17 | Inpatient (IN) | payer MEDICARE ==
[~2019-08-03] VITALS: Ht 162.6 cm; Wt 64.3 kg
[2019-08-03 19:44] LABS: BASOPHILS % (AUTO) 0 % (0-10); EOSINOPHILS # (AUTO) 0.3 10^3/uL (0.0-0.3); EOSINOPHILS % (AUTO) 6 % (0-10); HEMATOCRIT 38 % (35-52); LYMPHOCYTES % (AUTO) 22 % (12-44); MEAN CORPUSCULAR HEMOGLOBIN 30 PG (25-34); MEAN CORPUSCULAR HGB CONC 34 G/DL (32-36); MEAN CORPUSCULAR VOLUME 87 FL (80-99); MEAN PLATELET VOLUME 12.5 FL (7.4-10.4); MONOCYTES # (AUTO) 0.4 X 10^3 (0.0-1.0); MONOCYTES % (AUTO) 9 % (0-12); NEUTROPHILS # (AUTO) 2.9 X 10^3 (1.8-7.8); NEUTROPHILS % (AUTO) 62 % (42-75); PLATELET COUNT 161 10^3/uL (130-400); RED CELL DISTRIBUTION WIDTH 15.6 % (10.0-14.5); WHITE BLOOD COUNT 4.6 10^3/uL (4.3-11.0)
[2019-08-03 20:00] LABS: ALBUMIN 3.7 GM/DL (3.2-4.5); BILIRUBIN,TOTAL 0.2 MG/DL (0.1-1.0); CALCIUM 9.6 MG/DL (8.5-10.1); CREATININE SERUM 1.3 MG/DL (0.60-1.30); POTASSIUM 3.9 MMOL/L (3.6-5.0)
[2019-08-03 20:25] LABS: BILIRUBIN,URINE NEGATIVE (NEGATIVE); CLARITY,URINE CLEAR; COLOR,URINE YELLOW; GLUCOSE, URINE (UA) 4+ (NEGATIVE); KETONES,URINE NEGATIVE (NEGATIVE); LEUKOCYTE ESTERASE ,URINE 1+ (NEGATIVE); NITRITE,URINE NEGATIVE (NEGATIVE); PH,URINE 6.5 (5-9); PROTEIN,URINE 2+ (NEGATIVE); UROBILINOGEN,URINE NORMAL (NORMAL)
--- NOTE | 2019-08-03 20:37 | ED General ---
General Chief Complaint: General Problems/Pain Stated Complaint: LEG WEAKNESS Source of Information: Patient, Family Exam Limitations: No Limitations History of Present Illness Date Seen by Provider: Aug 03, 2019 Time Seen by Provider: 19:25 Initial Comments This 68-year-old woman presents to the emergency room via EMS with complaints of weakness and confusion. She is eventually accompanied by her . He reports she has had increased confusion and weakness today. She is now having a very difficult time ambulating safely. She is not eating or drinking well today. He states she was seen by Dr. Santos in the clinic yesterday. She was started on Bactrim for urinary tract infection. She has worsened despite that. She also seems to have some mild generalized edema. Patient is disoriented to place, age, and month but is conversational. reports she sometimes acts this way with urinary tract infection or severe electrolyte abnormalities. reports she is generally alert and oriented. Allergies and Home Medications Allergies Coded Allergies: canagliflozin (Verified Allergy, Severe, ANAPHYLAXIS, 08/03/19) iodine (Unverified Adverse Reaction, Severe, migraine headache, 08/03/19) lorazepam (Verified Adverse Reaction, Severe, ELEVATED BLOOD PRESSURE, 08/03/19) zolpidem (Verified Adverse Reaction, Severe, SLEEP WALK, 08/03/19) codeine (Unverified Adverse Reaction, Mild, INCREASED ACTIVITY, 08/03/19) erythromycin base (Unverified Adverse Reaction, Mild, NAUSEA, 08/03/19) Heparin Analogues (Unverified Adverse Reaction, Unknown, 08/03/19) Home Medications Amlodipine Besylate 10 Mg Tablet, 10 MG PO DAILY Prescribed by: FAIZA JOLLEY on 12/08/181122 Ascorbate Calcium 500 Mg Tablet, 500 MG PO 1200, (Reported) Aspirin 81 Mg Tablet.dr, 81 MG PO HS, (Reported) Cholecalciferol (Vitamin D3) 2,000 Unit Tab.chew, 1,000 UNIT PO DAILY, (Reported) Clonazepam 0.5 Mg Tablet, 0.5 MG PO BID PRN for ANXIETY Prescribed by: FAIZA JOLLEY on 12/08/181122 Clonidine 1 Each Patch.tdwk, 1 PATCH TD Q7D Prescribed by: FAIZA JOLLEY on 12/08/181122 Clonidine HCl 0.1 Mg Tablet, 0.2 MG PO TID, (Reported) TAKES 2 (0.1MG) TABLETS Fluticasone Propionate 16 Gm [place].susp, 2 SPRAYS NS DAILY PRN for ALLERGIES/CONGESTION, (Reported) Glyburide 5 Mg Tablet, 2.5 MG PO DAILY, (Reported) TAKES 1/2 (5MG) TABLET WITH BREAKFAST AND 1 (5MG) TABLET WITH SUPPER Glyburide 5 Mg Tablet, 5 MG PO 1800, (Reported) Hydrocortisone Valerate 15 Gm Cream..g., TP BID PRN for ITCHING, (Reported) Insulin Detemir 100 Unit/1 Ml Insuln.pen, 8 UNITS SC HS, (Reported) Lactobacillus Combination No.4 1 Each Capsule, 1 CAP PO DAILY, (Reported) Levomefolate/B6/B12/Algal Oil 1 Each Capsule, 1 CAP PO BID, (Reported) Magnesium Citrate 100 Mg Tablet, 100 MG PO 1200, (Reported) Metoprolol Succinate 100 Mg Tab.er.24h, 50 MG PO BID, (Reported) TAKES 1/2 (100MG) TABLET Multivitamin with Minerals 1 Each Tablet, 1 TAB PO 1200, (Reported) Nitrofurantoin Macrocrystal 100 Mg Capsule, 100 MG PO BID Prescribed by: JENNY SUN on 12/10/18 0033 Omeprazole 20 Mg Tablet.dr, 20 MG PO DAILY Prescribed by: FAIZA JOLLEY on 12/08/18 1123 Ondansetron 8 Mg Tab.rapdis, 8 MG PO Q6H Prescribed by: FAIZA JOLLEY on 12/08/18 1123 Potassium Chloride 10 Meq Tablet.er, 10 MEQ PO DAILY, (Reported) Patient Home Medication List Home Medication List Reviewed: Yes Review of Systems Review of Systems Constitutional: see HPI EENTM: no symptoms reported Respiratory: no symptoms reported Cardiovascular: no symptoms reported Gastrointestinal: see HPI Genitourinary: see HPI : No Musculoskeletal: no symptoms reported Skin: no symptoms reported Psychiatric/Neurological: See HPI Hematologic/Lymphatic: No Symptoms Reported Immunological/Allergic: no symptoms reported Past Usdksyl-Gvimsa-Gxkedw Hx Patient Social History 2nd Hand Smoke Exposure: No Recent Foreign Travel: No Contact w/Someone Who Travel: No Recent Hopitalizations: Yes (DC'D 12/08/18) Immunizations Up To Date Tetanus Booster (TDap): More than 5yrs Date of Pneumonia Vaccine: Aug 01, 2012 Date of Influenza Vaccine: Aug 26, 2017 Seasonal Allergies Seasonal Allergies: Yes Past Medical History Surgeries: Yes (thoracentesis) Appendectomy, Gallbladder, Hysterectomy, Pancreatic Respiratory: Yes (Thoracentesis) Cardiac: Yes High Cholesterol, Hypertension Neurological: Yes Headaches /Migraines, Multiple Sclerosis, Stroke, TIA 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, 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 Genitourinary: Yes Bladder Infection Gastrointestinal: Yes Chronic Constipation, Pancreatitis Musculoskeletal: Yes (generalized weakness of all extremities) Endocrine: Yes (History of severe electrolyte disturbances) Diabetes, Insulin dep HEENT: No Cancer: No Psychosocial: Yes Anxiety, Depression Integumentary: No Blood Disorders: No Adverse Reaction/Blood Tranf: No Family Medical History Arthritis 19 MOTHER Cardiovascular disease 19 FATHER Heart Disease, CVA Physical Exam Vital Signs Vital Signs - First Documented 08/03/19 19:20 Temp 36.8 Pulse 75 Resp 20 B/P (MAP) 184/89 (120) Pulse Ox 98 Capillary Refill : Height, Weight, BMI Height: 5'4.00" Weight: 119lbs. 0.0oz. 53.997320yc; 19.6 BMI Method:Stated General Appearance: No Apparent Distress, WD/WN, Other (generally weak) HEENT: PERRL/EOMI, Normal ENT Inspection Neck: Normal Inspection Respiratory: Lungs Clear, Normal Breath Sounds, No Accessory Muscle Use, No Respiratory Distress Cardiovascular: Regular Rate, Rhythm, No Murmur, Other (mild generalized edema) Gastrointestinal: Non Tender, Soft Extremity: Non Tender, Other (mild generalized edema) Neurologic/Psychiatric: Alert, change consultant II-XII Norm as Tested, Disoriented, Motor Weakness (generalized weakness with no focal deficits) Skin: Normal Color, Warm/Dry Progress/Results/Core Measures Suspected Sepsis SIRS Temperature: Pulse: Respiratory Rate: Laboratory Tests 08/03/19 19:38: White Blood Count 4.6 Blood Pressure / Mean: Laboratory Tests 08/03/19 19:38: Creatinine 1.30, Platelet Count 161, Total Bilirubin 0.2 Results/Orders Lab Results Laboratory Tests Test 08/03/19 19:36 08/03/19 19:37 08/03/19 19:38 08/03/19 20:21 Range/Units Glucometer 264 H 70-110 MG/DL Magnesium Level 1.6 1.6-2.4 MG/DL White Blood Count 4.6 4.3-11.0 10^3/uL Red Blood Count 4.36 4.35-5.85 10^6/uL Hemoglobin 13.0 11.5-16.0 G/DL Hematocrit 38 35-52 % Mean Corpuscular Volume 87 80-99 FL Mean Corpuscular Hemoglobin 30 25-34 PG Mean Corpuscular Hemoglobin Concent 34 32-36 G/DL Red Cell Distribution Width 15.6 H 10.0-14.5 % Platelet Count 161 130-400 10^3/uL Mean Platelet Volume 12.5 H 7.4-10.4 FL Neutrophils (%) (Auto) 62 42-75 % Lymphocytes (%) (Auto) 22 12-44 % Monocytes (%) (Auto) 9 0-12 % Eosinophils (%) (Auto) 6 0-10 % Basophils (%) (Auto) 0 0-10 % Neutrophils # (Auto) 2.9 1.8-7.8 X 10^3 Lymphocytes # (Auto) 1.0 1.0-4.0 X 10^3 Monocytes # (Auto) 0.4 0.0-1.0 X 10^3 Eosinophils # (Auto) 0.3 0.0-0.3 10^3/uL Basophils # (Auto) 0.0 0.0-0.1 10^3/uL Sodium Level 135 135-145 MMOL/L Potassium Level 3.9 3.6-5.0 MMOL/L Chloride Level 100 98-107 MMOL/L Carbon Dioxide Level 20 L 21-32 MMOL/L Anion Gap 15 H 5-14 MMOL/L Blood Urea Nitrogen 27 H 7-18 MG/DL Creatinine 1.30 0.60-1.30 MG/DL Estimat Glomerular Filtration Rate 41 BUN/Creatinine Ratio 21 Glucose Level 237 H 70-105 MG/DL Calcium Level 9.6 8.5-10.1 MG/DL Corrected Calcium 9.8 8.5-10.1 MG/DL Total Bilirubin 0.2 0.1-1.0 MG/DL Aspartate Amino Transf (AST/SGOT) 17 5-34 U/L Alanine Aminotransferase (ALT/SGPT) 29 0-55 U/L Alkaline Phosphatase 111 40-136 U/L Total Protein 7.0 6.4-8.2 GM/DL Albumin 3.7 3.2-4.5 GM/DL Urine Color YELLOW Urine Clarity CLEAR Urine pH 6.5 5-9 Urine Specific [place] 1.015 L 1.016-1.022 Urine Protein 2+ H NEGATIVE Urine Glucose (UA) 4+ H NEGATIVE Urine Ketones NEGATIVE NEGATIVE Urine Nitrite NEGATIVE NEGATIVE Urine Bilirubin NEGATIVE NEGATIVE Urine Urobilinogen NORMAL NORMAL MG/DL Urine Leukocyte Esterase 1+ H NEGATIVE Urine RBC (Auto) NEGATIVE NEGATIVE Urine RBC NONE /HPF Urine WBC 10-25 H /HPF Urine Squamous Epithelial Cells 2-5 /HPF Urine Crystals PRESENT H /LPF Urine Amorphous Sediment FEW ELEAZAR URATES H /LPF Urine Bacteria LARGE H /HPF Urine Casts NONE /LPF Urine Mucus NEGATIVE /LPF Urine Culture Indicated YES Test 08/03/19 20:44 Range/Units Glucometer 248 H 70-110 MG/DL My Orders Orders - SOPHIA MONTE MD Ed Iv/Invasive Line Start (08/03/19 19:25) Cbc With Automated Diff (08/03/19 19:25) Comprehensive Metabolic Panel (08/03/19 19:25) Ua Culture If Indicated (08/03/19 19:25) Magnesium (08/03/19 19:38) Accucheck Stat ONCE (08/03/19 20:06) Urine Culture (08/03/19 20:21) Ceftriaxone For Iv Use (Rocephin For I (08/03/19 21:15) Vital Signs/I&O 08/03/19 19:20 Temp 36.8 Pulse 75 Resp 20 B/P (MAP) 184/89 (120) Pulse Ox 98 Capillary Refill : Point of Care Testing Finger Stick Blood Glucose: 264 Blood Glucose Action Taken: DR. MONTE NOTIFIED. Progress Note : Time: 21:06 Progress Note Patient was seen and evaluated. The blood work was relatively unremarkable. However, urine still showed evidence of infection. Symptoms have worsened despite being on oral antibiotics. She is essentially failing outpatient therapy. Because of the confusion, weakness, and worsening symptoms, we will admit her to the hospital. Rocephin is being administered in the emergency room for initial therapy. Her GFR is down slightly. reports she has not been drinking well today. We will gently hydrate her with 1 L of normal saline at 70 mL per hour. I am decreasing her usual insulin dosing from Levemir 15 units down to Levemir 10 units at bedtime since she has had poor oral intake. We will continue NovoLog with lunch and supper as usual at 8 units. Sliding scale insulin is being added for hyperglycemia. Patient is being admitted as inpatient status because she has failed outpatient therapy and is expected to require tube midnights or more. I discussed CODE STATUS with patient's . He requests a full code. Departure Communication (Admissions) Time/Spoke to Admitting Phy: 20:53 Dr. Jolley Impression Primary Impression: Urinary tract infection Qualified Codes: N39.0 - Urinary tract infection, site not specified Additional Impressions: Generalized weakness AMS (altered mental status) Qualified Codes: R41.82 - Altered mental status, unspecified Acute hyperglycemia Decreased GFR Disposition: ADMITTED INPATIENT Condition: Improved Admissions Decision to Admit Reason: Admit from ER (General) Decision to Admit/Date: Aug 03, 2019 Time/Decision to Admit Time: 19:50 Departure-Patient Inst. Referrals: DECLAN SANTOS MD (PCP/Family) Primary Care Physician Copy Copies To 1: DECLAN SANTOS MD, JOSHUA T MD Aug 03, 2019 20:37
[2019-08-03 20:48] LABS: AMORPHOUS SEDIMENT,UR FEW AMOR URATES /LPF; BACTERIA,URINE LARGE /HPF
[2019-08-03] MEDS ORDERED: cefTRIAXone FOR IV USE 1,000 MG in WATER (STERILE) FOR INJECTION 10 ML IV ONE (21:15)
--- NOTE | 2019-08-03 21:45 | NUR ---
EDMUND FELIX admitted to room 404-1, with an admitting diagnosis of UTI, AMS, and WEAKNESS, on 08/03/19 from ED, accompanied by STAFF and Clinton ().EDMUND FELIX introduced to surroundings, call light, bed controls, phone, TV, temperature control, lights, meal times, smoking policy, visitor policy, side rail policy, bathrooms and showers. Patient Rights given to patient in the handbook. EDMUND FELIX verbalizes understanding that [facility] is not responsible for the loss or damage to any personal effects or valuables that are kept in the patients posession during their hospitalization.
[2019-08-03 22:07] VITALS: BP 169/84
[2019-08-03] MEDS ORDERED: NS IV 1000 ML 1,000 ML ONE (22:58)
[2019-08-03] MEDS ORDERED: NS IV 1000 ML 1,000 ML IV SCH (23:15)
[2019-08-03] MEDS ORDERED: ACETAMINOPHEN 325 MG TABLET PO PRN (23:30)
[2019-08-03 23:47] VITALS: BP 150/82
[2019-08-04 04:05] VITALS: BP 136/77
[2019-08-04 04:37] LABS: BASOPHILS % (AUTO) 1 % (0-10); EOSINOPHILS # (AUTO) 0.3 10^3/uL (0.0-0.3); EOSINOPHILS % (AUTO) 7 % (0-10); HEMATOCRIT 35 % (35-52); HEMOGLOBIN 11.9 G/DL (11.5-16.0); LYMPHOCYTES # (AUTO) 0.9 X 10^3 (1.0-4.0); LYMPHOCYTES % (AUTO) 24 % (12-44); MEAN CORPUSCULAR HEMOGLOBIN 29 PG (25-34); MEAN CORPUSCULAR HGB CONC 34 G/DL (32-36); MEAN CORPUSCULAR VOLUME 87 FL (80-99); MONOCYTES # (AUTO) 0.5 X 10^3 (0.0-1.0); MONOCYTES % (AUTO) 12 % (0-12); NEUTROPHILS # (AUTO) 2.1 X 10^3 (1.8-7.8); NEUTROPHILS % (AUTO) 56 % (42-75); PLATELET COUNT 145 10^3/uL (130-400); RED CELL DISTRIBUTION WIDTH 15.3 % (10.0-14.5); WHITE BLOOD COUNT 3.8 10^3/uL (4.3-11.0)
[2019-08-04 04:56] LABS: CALCIUM 8.7 MG/DL (8.5-10.1); CREATININE SERUM 1.04 MG/DL (0.60-1.30); MAGNESIUM 1.4 MG/DL (1.6-2.4); POTASSIUM 3.3 MMOL/L (3.6-5.0)
[2019-08-04] MEDS: inSUlin ASPART (NovoLOG) 1 UNIT/0.01 ML (CHARGE PER UNIT) SC SCH ×4 (05:09→22:10)
[2019-08-04] MEDS ORDERED: KCL 20 MEQ TAB (K-DUR) PO NR (07:30)
[2019-08-04] MEDS ORDERED: POLYETHYLENE GLYCOL 17 GM (MIRALAX) PACK PO PRN (07:30)
[2019-08-04] MEDS ORDERED: ONDANSETRON 4 MG (ZOFRAN) ORAL DISSOLVE TAB PO PRN (07:30)
[2019-08-04] MEDS ORDERED: ACETAMINOPHEN 325 MG TABLET PO PRN (07:30)
[2019-08-04 08:00] VITALS: BP 154/82
[2019-08-04] MEDS: DOCUSATE SODIUM 100 MG (COLACE) CAP PO SCH ×2 (09:51→21:04)
[2019-08-04] MEDS: MAGNESIUM 1 GM/100 ML IVPB 100 ML IV SCH ×4 (09:51→13:22)
[2019-08-04] MEDS: SENNA W/DOCUSATE (SENOKOT S) TABLET PO SCH ×2 (09:51→21:03)
[2019-08-04] MEDS ORDERED: meTOproloL SUCCINATE 50 MG (TOPROL XL) TAB PO NR (10:00)
[2019-08-04] MEDS ORDERED: FLUTICASONE NASAL SPRAY (FLONASE) 16 GM BTL NS PRN (10:00)
[2019-08-04] MEDS ORDERED: cloNIDine 0.2 MG (CATAPRES) TAB PO NR (10:00)
--- NOTE | 2019-08-04 10:00 | History & Physical-Hospitalist ---
History of Present Illness HPI/Chief Complaint Carmen Valerio is a 68-year-old female with past medical history of hypertension, type II diabetes mellitus, who presented with altered mental status. Her reports that she had the been feeling weak recently and has been seen by her primary care physician and had been started on Bactrim for a urinary tract infection. He reports that her confusion and weakness worsened yesterday and that is when she presented to the emergency room. He denies her having any complaints of fevers, chills, chest pain, shortness of breath, cough, abdominal pain, nausea, vomiting, diarrhea, constipation, dysuria, frequency, or urgency. She does not drink alcohol or use any illicit drugs. She has been compliant with her medications. Source: patient, family Exam Limitations: clinical condition Date Seen 08/04/19 Time Seen by a Provider: 09:15 Attending Physician Karla Kimball Rick D MD Referring Physician Date of Admission Aug 03, 2019 at 21:05 Home Medications & Allergies Home Medications Reviewed patient Home Medication Reconciliation performed by pharmacy medication reconciliations denture laboratory technician and/or nursing. Patients Allergies have been reviewed. Allergies Allergies Coded Allergies canagliflozin (Verified Allergy, Severe, ANAPHYLAXIS, 08/03/19) iodine (Unverified Adverse Reaction, Severe, migraine headache, 08/03/19) lorazepam (Verified Adverse Reaction, Severe, ELEVATED BLOOD PRESSURE, 08/03/19) zolpidem (Verified Adverse Reaction, Severe, SLEEP WALK, 08/03/19) codeine (Unverified Adverse Reaction, Mild, INCREASED ACTIVITY, 08/03/19) erythromycin base (Unverified Adverse Reaction, Mild, NAUSEA, 08/03/19) Heparin Analogues (Unverified Adverse Reaction, Unknown, 08/03/19) Past Onzkwsn-Acnkfh-Jnnyck Hx Past Med/Social Hx: Reviewed Nursing Past Med/Soc Hx Patient Social History Alcohol Use: Denies Use Recreational Drug Use: No 2nd Hand Smoke Exposure: No Recent Foreign Travel: No Contact w/other who traveled: No Recent Hopitalizations: No (DC'D 12/08/18) Recent Infectious Disease Expo: No Immunizations Up To Date Tetanus Booster (TDap): More than 5yrs Date of Pneumonia Vaccine: Aug 01, 2012 Date of Influenza Vaccine: Aug 26, 2017 Seasonal Allergies Seasonal Allergies: Yes Past Medical History Surgeries: Appendectomy, Gallbladder, Hysterectomy, Pancreatic Cardiac: High Cholesterol, Hypertension Neurological: Headaches /Migraines, Multiple Sclerosis, Stroke, TIA 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: No Hysterectomy, Menopausal Genitourinary: Bladder Infection Gastrointestinal: Chronic Constipation, Pancreatitis Endocrine: Diabetes, Insulin dep Psychosocial: Anxiety, Depression History of Blood Disorders: No Adverse Reaction to Blood Torres: No Family History Arthritis 19 MOTHER Cardiovascular disease 19 FATHER 19 MOTHER Prostate cancer in father 19 FATHER Heart Disease, CVA Review of Systems Constitutional: weakness EENTM: no symptoms reported Respiratory: no symptoms reported Cardiovascular: no symptoms reported Gastrointestinal: no symptoms reported Genitourinary: no symptoms reported Musculoskeletal: no symptoms reported Skin: no symptoms reported Psychiatric/Neurological: Weakness, Other (Confusion) Physical Exam Physical Exam Vital Signs Vital Signs - First Documented 08/03/19 19:20 Temp 36.8 Pulse 75 Resp 20 B/P (MAP) 184/89 (120) Pulse Ox 98 Capillary Refill : Less Than 3 Seconds Height, Weight, BMI Height: 5'4.00" Weight: 119lbs. 0.0oz. 53.327138gn; 22.35 BMI Method:Stated General Appearance: No Apparent Distress, WD/WN, Other (Sitting in bedside chair) HEENT: Pharynx Normal, Other (Pupils equal round and reactive to light, horizontal nystagmus) Neck: Normal Inspection, Supple Respiratory: Lungs Clear, Normal Breath Sounds Cardiovascular: Regular Rate, Rhythm, No Murmur, Normal Peripheral Pulses Gastrointestinal: Normal Bowel Sounds, Non Tender, Soft Extremity: Normal Inspection, Non Tender, Pedal Edema Neurologic/Psychiatric: Alert, No Motor/Sensory Deficits, Normal Mood/Affect, Disoriented Skin: Normal Color, Warm/Dry Lymphatic: No Adenopathy Results Results/Procedures Labs Laboratory Tests 08/03/19 19:38 08/04/19 03:45 Patient resulted labs reviewed. Assessment/Plan Admission Diagnosis Acute encephalopathy Admission Status: Inpatient Order (span 2 midnights) Reason for Inpatient Admission: Urinary tract infection Acute kidney injury Assessment and Plan Urinary tract infection Acute encephalopathy Afebrile, normal WBC on arrival UA consistent with UTI Urine culture pending Started on ceftriaxone Encephalopathy improving this morning, not completely resolved Continue IV fluids and await culture results Acute kidney injury Creatinine 1.3 on admission Improved to 1.0 this morning Continue IV fluids and monitor renal function Hypokalemia Hypomagnesemia K 3.3 and mag 1.4 this morning Continue to monitor and replace as needed Hypertension Continue home clonidine and metoprolol IV hydralazine as needed for his SBP greater than 180 Type II diabetes mellitus Levemir 10 units nightly Hold scheduled NovoLog Hold glyburide Sliding scale insulin DVT prophylaxis: Lovenox Diagnosis/Problems Diagnosis/Problems (1) Type 2 diabetes mellitus Status: Chronic Qualifiers: Diabetes mellitus fci insulin use: with termite exterminator helper use Diabetes mellitus complication status: with hyperglycemia Qualified Codes: E11.65 - Type 2 diabetes mellitus with hyperglycemia; Z79.4 - terminal carman (current) use of insulin (2) Acute kidney injury Status: Acute (3) UTI (urinary tract infection) Status: Acute Qualifiers: Urinary tract infection type: acute cystitis Hematuria presence: without hematuria Qualified Codes: N30.00 - Acute cystitis without hematuria (4) Hypokalemia Status: Acute (5) HTN (hypertension) Status: Acute (6) Hypomagnesemia Status: Acute Clinical Quality Measures DVT/VTE Risk/Contraindication: Risk Factor Score Per Nursin RFS Level Per Nursing on Admit: 4+=Very High ROXANN HUSSEIN MD Aug 04, 2019 09:59
[2019-08-04] MEDS ORDERED: ENOXAPARIN 40 MG/0.4 ML (LOVENOX) SYR SC SCH (10:15)
[2019-08-04] MEDS ORDERED: LORATADINE (CLARITIN) 10 MG TAB PO ONE (10:15)
[2019-08-04] MEDS ORDERED: SULF-222 PO (10:37)
[2019-08-04] MEDS ORDERED: OXYB10TA PO (10:37)
[2019-08-04] MEDS ORDERED: CLON0.2T PO (10:37)
[2019-08-04] MEDS ORDERED: GLIP5TAB26 PO (10:37)
[2019-08-04] MEDS ORDERED: ELEMENTAL MAGNESIUM PO (10:37)
[2019-08-04] MEDS ORDERED: MAGN400T39 PO (10:37)
[2019-08-04] MEDS ORDERED: INSU100I13 SC (10:37)
[2019-08-04] MEDS ORDERED: MIRT7.5T8 PO (10:37)
[2019-08-04] MEDS ORDERED: CETI10TA20 PO (10:37)
[2019-08-04] MEDS ORDERED: LOSA50TA63 PO (10:37)
--- NOTE | 2019-08-04 10:44 | NUR ---
SPOKE WITH THE PATIENT AND HER ABOUT MEDICATIONS. WE WENT OVER THE EXT MED HX WELL THE BOTTLES THEY HAVE WITH THEM. THEY ALSO VERIFIED THE OTC MEDICATIONS. OTC MEDS: VITAMIN C 1200 ASPIRIN 81MG 1200 ZYRTEC 10MG DAILY VITAMIN D DAILY FLONASE PRN PROBIOTIC DAILY ELEMENTAL MAG BID MTV 1200 IN ADDITION TO THE EXT MED HX THEY HAD A BOTTLE FILL FROM A MAIL FACILITY FOR METANX BID #[id number] 04-28-19.
[2019-08-04] MEDS: ceTIRizine 10 MG (ZyrTEC) TAB NON-FORMULARY PO SCH (10:46)
[2019-08-04] MEDS: PATIENT MAY USE OWN MED,SINGLE MED PO SCH (10:46)
[2019-08-04] MEDS ORDERED: inSUlin ASPART (NovoLOG) 1 UNIT/0.01 ML (CHARGE PER UNIT) SC SCH (12:00)
[2019-08-04] MEDS: cloNIDine 0.2 MG (CATAPRES) TAB PO SCH ×2 (13:34→21:04)
[2019-08-04] MEDS: hydrALAZINE (APESOLINE) 20 MG/ML VIAL IV PRN (13:34)
--- NOTE | 2019-08-04 13:39 | Physical Therapy Evaluation ---
PT Evaluation-General Medical Diagnosis Admission Date Aug 03, 2019 at 21:05 Medical Diagnosis: UTI/AMS/weakness Onset Date: Aug 03, 2019 Therapy Diagnosis Therapy Diagnosis: generalized weakness Height/Weight Height (Feet): 5 Height (Inches): 4.00 Weight (Pounds): 119 Weight (Ounces): 0.0 Precautions Precautions/Isolations: Fall Prevention, Standard Precautions Referral Physician: Kwadwo Reason for Referral: Evaluation/Treatment Medical History Pertinent Medical History: Atrial Fib, CVA, DM, HTN, Neuropathy Current History EMS secondary to weakness/confusion Reviewed History: Yes Social History Home: Single Level Current Living Status: Spouse Entry Into Home: Ramp Prior Prior Level of Function Therapy Quality Codes: 6 Independent with activity with or without an assistive device 5 Patient requires set up or clean up by helper. Patient completes activity by themselves 4 Supervision or touching assist (CGA). [place] provide cues , steadying assist 3 The helper provides less than half the effort to complete the activity 2 The helper provides more than half the effort to complete the activity 1 Dependent. The helper does all the effort to complete an activity 7 Patient refused to complete or attempt activity 9 The patient did not perform the activity before the current illness or injury 88 Not attempted due to Medical conditions or safety concerns Bed Mobility: 4 Transfers (B,C,W/C): 4 Gait: 4 Indoor Mobility (Ambulation): Needed Some Help Stairs: Not Applicalbe Prior Devices Use: Manual wheelchair, Walker spouse assist with all gross motor skills PLOF PT Evaluation-Current Subjective Patient is confused and agrees to PT. Pain Numeric Pain Scale: 0-No Pain Location: No Pain Reported Objective Patient Orientation: Confused Problem Solving: Poor Attachments: IV ROM/Strength ROM Lower Extremities bilateral LE WFL Strength Lower Extremities 3-/5 grossly bilateral LE Integumentary/Posture Integumentary refer to nursing notes Bladder Incontinence: Yes Posture trunk flexed posture Neuromuscular (Tone, Coordination, Reflexes) diminished with all Sensory Vision: Functional Hearing: Functional Sensation Right Lower Extremit: Impaired Sensation Left Lower Extremity: Impaired Transfers Roll Left to Right (QC): 3 Sit to Lying (QC): 3 Lying to Sitting/Side of Bed(Q: 3 Sit to Stand (QC): 3 Chair/Vuf-dz-Zgywo Xfer(QC): 3 Gait Does the Patient Walk?: Yes Mode of Locomotion: Both Anticipated Mode of Locomotion: Both Distance (FIM): 1=up to 49 ft Walk 10 feet (QC): 4 Walk 50 ft with 2 Turns(QC): 88 Walk 150 ft (QC): 9 Walking 10ft/uneven surface-QC: 10 Distance: 30' Gait Assistive Device: FWW Comments/Gait Description shuffle gait sequence with FWW use/PT assist with FWW propulsion Balance Sitting Static: Fair Sitting Dynamic: Fair Standing Static: Fair Standing Dynamic: Fair Assessment/Needs 68 y.o. female, will benefit from skilled PT to address functional strength and mobility to improve current LOF to safely return to home with spouse at maximum LOF. Rehab Potential: Fair PT Usp Goals Transport Aircrewman Goals PT Transport Aircrewman Goals Time Frame: Aug 19, 2019 Sit to Lying (QC): 4 Lying-Sitting on Side/Bed(QC): 4 Sit to Stand (QC): 4 Roll Left to Right (QC): 4 Chair/Dfa-wn-Ymzsj Xfer(QC): 4 Car Transfer (QC): 4 Does the Patient Walk: Yes Distance: 75' Walk 10 feet (QC): 4 Walk 10ft-Uneven Surface(QC): 4 Walk 50ft with 2 Turns (QC): 4 Walk 150 ft (QC): 9 Gait Assistive Device: FWW PT Plan Problem List Problem List: Activity Tolerance, Functional Strength, Safety, Balance, Gait, Transfer, Bed Mobility Treatment/Plan Treatment Plan: Continue Plan of Care Treatment Plan: Bed Mobility, Education, Functional Activity Shiv, Functional Strength, Gait, Safety, Therapeutic Exercise, Transfers Treatment Duration: Aug 19, 2019 Frequency: 6 times per week Estimated Hrs Per Day: .25 hour per day Patient and/or Family Agrees t: Yes Time/GCodes Time In: 1300 Time Out: 1318 Total Billed Treatment Time: 18 Total Billed Treatment 1 visit EVModC 18 min OSPHIA ROSARIO PT Aug 04, 2019 13:39
--- NOTE | 2019-08-04 13:52 | Occupational Therapy Eval ---
OT Evaluation-General/PLF Medical Diagnosis Admission Date Aug 03, 2019 at 21:05 Medical Diagnosis: UTI/AMS/weakness Onset Date: Aug 03, 2019 Therapy Diagnosis Therapy Diagnosis: decreased self care skills Height/Weight Height (Feet): 5 Height (Inches): 4.00 Weight (Pounds): 119 Weight (Ounces): 0.0 Precautions Precautions/Isolations: Fall Prevention, Standard Precautions Referral Physician: Kwadwo Medical History Pertinent Medical History: Atrial Fib, CVA, DM, HTN, Neuropathy Additional Medical History high cholesterol, headaches/migraines, MS, pancreatitis, anxiety, depression Current History Pt admitted with UTI, AMS, and weakness Social History Home: Single Level Current Living Status: Spouse Entry Into Home: Ramp ADL-Prior Level of Function Therapy Quality Codes: 6 Independent with activity with or without an assistive device 5 Patient requires set up or clean up by helper. Patient completes activity by themselves 4 Supervision or touching assist (CGA). [place] provide cues , steadying assist 3 The helper provides less than half the effort to complete the activity 2 The helper provides more than half the effort to complete the activity 1 Dependent. The helper does all the effort to complete an activity 7 Patient refused to complete or attempt activity 9 The patient did not perform the activity before the current illness or injury 88 Not attempted due to Medical conditions or safety concerns ADL PLOF Comments Pt unable to provide information regarding PLOF and no family present during evaluation. Self Care: Unknown Functional Cognition: Unknown OT Current Status Subjective Pt sitting in chair, agrees to therapy. Pt reports no pain. Mental Status/Objective Patient Orientation: Person Pt is able to state name, but unable to answer further orientation questions. Attachments: IV Current Upper Extremity ROM Decreased shoulder ROM bilaterally Upper Extremity Coordination Decreased Upper Extremity Strength Decreased strength bilaterally. left >right ADL-Treatment ADL-Current Pt participated in UE assessment while seated in chair. Pt brushed hair with minimal assistance. Washed face with SBA. Pt demonstrated ability to perform sit to stand with minimal assistance. Uses FWW for standing balance. Pt sitting in chair with needs met and RN present after session. Education OT Patient Education: Rehab process Teaching Recipient: Patient Teaching Methods: Discussion Response to Teaching: Reinforcement Needed OT Short Term Goals Short Term Goals 1=Demonstrate adherence to instructed precautions during ADL tasks. 2=Patient will verbalize/demonstrate understanding of assistive devices/modifications for ADL. 3=Patient will improve strength/tolerance for activity to enable patient to perform ADL's. OT Radiographic Technologist Goals Half-Way Goals Time Frame: Aug 18, 2019 Oral Hygiene (QC): 5 Shower/Bathe Self (QC): 3 Upper Body Dressing (QC): 4 Lower Body Dressing (QC): 3 Toileting Hygiene (QC): 4 Toilet/Commode Transfer (QC): 4 Additional Goals: 1-Demonstrate ADL Tasks, 2-Verbalize Understanding, 3- ImproveStrength/Shiv 1=Demonstrate adherence to instructed precautions during ADL tasks. 2=Patient will verbalize/demonstrate understanding of assistive devices/modifications for ADL. 3=Patient will improve strength/tolerance for activity to enable patient to perform ADL's. OT Education/Plan Problem List/Assessment Assessment: Decreased Activ Tolerance, Decreased UE Strength, Dependent Transfers, Impaired Coordination, Impaired Funct Balance, Impaired I ADL's, Impaired Self-Care Skills Pt to benefit from skilled OT intervention for ADL training, transfers, strengthening, and safety education to increase level of independence and allow safe discharge plan. Discharge Recommendations Plan/Recommendations: Continue POC Treatment Plan/Plan of Care Treatment,Training & Education: Yes Patient would benefit from OT for education, treatment and training to promote independence in ADL's, mobility, safety and/or upper extremity function for ADL's. Plan of Care: ADL Retraining, Functional Mobility, UE Funct Exercise/Act Treatment Duration: Aug 18, 2019 Frequency: 5 times per week Estimated Hrs Per Day: .25 hour per day Rehab Potential: Fair Time/GCodes Start Time: 13:24 Stop Time: 13:39 Total Time Billed (hr/min): 15 Billed Treatment Time 1 visit, CINDI(15minutes) TARIQ MCNULTY OT Aug 04, 2019 13:52
[2019-08-04 14:30] VITALS: BP 168/77
[2019-08-04] MEDS ORDERED: hydrALAZINE (APRESOLINE) 25 MG TAB PO NR (15:15)
[2019-08-04 16:00] VITALS: BP 178/78
[2019-08-04 19:52] VITALS: BP 173/76
[2019-08-04] MEDS ORDERED: meTOproloL SUCCINATE 50 MG (TOPROL XL) TAB PO SCH (21:00)
[2019-08-04] MEDS: hydrALAZINE (APRESOLINE) 25 MG TAB PO SCH (21:04)
[2019-08-04] MEDS: MELATONIN 3 MG TABLET PO PRN (22:10)
[2019-08-05] VITALS (8 sets, daily range): BP systolic 126–216; BP diastolic 71–98
[2019-08-05 06:08] LABS: BASOPHILS % (AUTO) 1 % (0-10); EOSINOPHILS # (AUTO) 0.3 10^3/uL (0.0-0.3); EOSINOPHILS % (AUTO) 6 % (0-10); HEMATOCRIT 35 % (35-52); HEMOGLOBIN 11.7 G/DL (11.5-16.0); LYMPHOCYTES # (AUTO) 1.4 X 10^3 (1.0-4.0); LYMPHOCYTES % (AUTO) 33 % (12-44); MEAN CORPUSCULAR HEMOGLOBIN 29 PG (25-34); MEAN CORPUSCULAR HGB CONC 33 G/DL (32-36); MEAN CORPUSCULAR VOLUME 88 FL (80-99); MONOCYTES # (AUTO) 0.5 X 10^3 (0.0-1.0); MONOCYTES % (AUTO) 10 % (0-12); NEUTROPHILS # (AUTO) 2.2 X 10^3 (1.8-7.8); NEUTROPHILS % (AUTO) 51 % (42-75); PLATELET COUNT 160 10^3/uL (130-400); RED CELL DISTRIBUTION WIDTH 15.7 % (10.0-14.5); WHITE BLOOD COUNT 4.4 10^3/uL (4.3-11.0)
[2019-08-05] MEDS: hydrALAZINE (APRESOLINE) 25 MG TAB PO SCH ×3 (06:21→20:35)
[2019-08-05] MEDS: inSUlin ASPART (NovoLOG) 1 UNIT/0.01 ML (CHARGE PER UNIT) SC SCH ×3 (06:22→22:18)
[2019-08-05 06:29] LABS: CALCIUM 9.1 MG/DL (8.5-10.1); CREATININE SERUM 1.17 MG/DL (0.60-1.30); MAGNESIUM 2.1 MG/DL (1.6-2.4); PHOSPHORUS 3.5 MG/DL (2.3-4.7); POTASSIUM 3.9 MMOL/L (3.6-5.0)
[2019-08-05] MEDS ORDERED: inSUlin ASPART (NovoLOG) 1 UNIT/0.01 ML (CHARGE PER UNIT) SC SCH (07:15)
[2019-08-05] MEDS ORDERED: NS IV 1000 ML 1,000 ML IV SCH (07:30)
[2019-08-05] MEDS: DOCUSATE SODIUM 100 MG (COLACE) CAP PO SCH ×2 (07:59→20:35)
[2019-08-05] MEDS: SENNA W/DOCUSATE (SENOKOT S) TABLET PO SCH ×2 (07:59→20:35)
[2019-08-05] MEDS: cloNIDine 0.2 MG (CATAPRES) TAB PO SCH ×3 (07:59→20:35)
[2019-08-05] MEDS: meTOproloL SUCCINATE 50 MG (TOPROL XL) TAB PO SCH ×2 (07:59→20:35)
[2019-08-05] MEDS: hydrALAZINE (APESOLINE) 20 MG/ML VIAL IV PRN ×2 (07:59→22:25)
[2019-08-05] MEDS: ceTIRizine 10 MG (ZyrTEC) TAB NON-FORMULARY PO SCH (08:04)
--- NOTE | 2019-08-05 08:45 | NUR ---
PT REPORTED PAIN IN HER LEGS. THIS RN AND CUSTOMER SERVICES COORDINATOR REPOSITIONED PT IN BED AND PLACED LEGS ELEVATED ON PILLOW. NO REDNESS/SWELLING NOTED TO LEGS. PT ARRIVED AND UPDATED ON PT. STATED WOULD LIKE IBUPROFEN FOR HER FOR PAIN IN HER LEGS LIKE SHE TAKES AT HOME. NOTIFIED WOULD HAVE TO TALK WITH DR TO GET AN ORDER FOR IBUPROFEN. THE ONLY PRN MEDICATION ORDERED WAS TYLENOL AT THIS TIME. DR HUSSEIN WAS NOTIFIED AND STATED THIS RN COULD GIVE PT ONE TIME DOSE OF IBUPROFEN. BEFORE RETURNING TO ROOM AIDE FOUND THIS RN AND REPORTED THAT TOLD HER HE GAVE PT A IBUPROFEN FROM HIS POCKET. SPOKE WITH ABOUT HOSPITAL POLICY WITH MEDICATIONS AND NEEDING DR ORDERS BEFORE GIVING MEDICATIONS FOR PATIENT SAFETY. VERBALIZED UNDERSTANDING. (PT WAS GIVEN 200MG IBUPROFEN FROM )
--- NOTE | 2019-08-05 08:55 | Physical Therapy Daily Note ---
PT Daily Note-Current Subjective Patient sitting EOB pre tx, agrees to PT, has 3/10 pain in her right calf, has painful manual dorsiflexion and calf squeeze but no abnormal swelling or redness, nurse notified. Patient is very shaky. Appearance Patient in recliner post tx with nurse call, phone, tray, in the room. Mental Status Patient Orientation: Person, Confused Attachments: IV Transfers Therapy Quality Codes: 6 Independent with activity with or without an assistive device 5 Patient requires set up or clean up by helper. Patient completes activity by themselves 4 Supervision or touching assist (CGA). [place] provide cues , steadying assist 3 The helper provides less than half the effort to complete the activity 2 The helper provides more than half the effort to complete the activity 1 Dependent. The helper does all the effort to complete an activity 7 Patient refused to complete or attempt activity 9 The patient did not perform the activity before the current illness or injury 88 Not attempted due to Medical conditions or safety concerns Transfers (B, C, W/C): 4 Sit to Stand (QC): 4 Chair/Knh-yi-Wtzso Xfer(QC): 4 CGA, cues for hand placement and direction Gait Training Distance: 20' Walk 10 feet (QC): 3 Gait Persons Needed: 1 Gait Assistive Device: FWW min assist to help guide the walker, very slow and unsteady Exercises Seated Therapy Exercises: Ankle pumps, Long arc quads Seated Reps: 15 Treatments transfers, ambulation, LE exercise Assessment Current Status: Fair Progress improved distance of ambulation PT Inspector Screen Printing Goals Chcf Goals PT Chcf Goals Time Frame: Aug 19, 2019 Sit to Lying (QC): 4 Lying-Sitting on Side/Bed(QC): 4 Sit to Stand (QC): 4 Roll Left to Right (QC): 4 Chair/Uqi-gm-Phhyc Xfer(QC): 4 Car Transfer (QC): 4 Does the Patient Walk: Yes Distance: 75' Walk 10 feet (QC): 4 Walk 10ft-Uneven Surface(QC): 4 Walk 50ft with 2 Turns (QC): 4 Walk 150 ft (QC): 9 Gait Assistive Device: FWW PT Plan Problem List Problem List: Activity Tolerance, Functional Strength, Safety, Balance, Gait, Transfer, Bed Mobility Treatment/Plan Treatment Plan: Continue Plan of Care Treatment Plan: Bed Mobility, Education, Functional Activity Shiv, Functional Strength, Gait, Safety, Therapeutic Exercise, Transfers Treatment Duration: Aug 19, 2019 Frequency: 6 times per week Estimated Hrs Per Day: .25 hour per day Patient and/or Family Agrees t: Yes Safety Risks/Education Patient Education: Gait Training, Transfer Techniques, Correct Positioning, Safety Issues Teaching Recipient: Patient Teaching Methods: Demonstration, Discussion Response to Teaching: Reinforcement Needed Time/GCodes Time In: 0837 Time Out: 0849 Total Billed Treatment Time: 12 Total Billed Treatment 1 visit GT 12' PEBBLES BERRY PT Aug 05, 2019 08:55
[2019-08-05] MEDS ORDERED: LORATADINE (CLARITIN) 10 MG TAB PO SCH (09:00)
[2019-08-05] MEDS: PATIENT MAY USE OWN MED,SINGLE MED PO SCH (09:00)
[2019-08-05] MEDS: cefTRIAXone FOR IV USE 1,000 MG in WATER (STERILE) FOR INJECTION 10 ML IV SCH (09:14)
--- NOTE | 2019-08-05 12:28 | Progress Note - Hospitalist ---
Subjective HPI/CC On Admission Date Seen by Provider: Aug 05, 2019 Time Seen by Provider: 11:00 altered mental status Subjective/Events-last exam She continues to have confusion. She denies pain. She denies shortness of breath. She denies abdominal pain, nausea, vomiting, and diarrhea. Objective Exam Vital Signs Vital Signs Date Time Temp Pulse Resp B/P (MAP) Pulse Ox O2 Delivery O2 Flow Rate FiO2 08/05/19 11:25 36.8 72 16 126/71 (89) 98 Room Air Capillary Refill : Less Than 3 Seconds General Appearance: No Apparent Distress, WD/WN HEENT: PERRL/EOMI, Pharynx Normal Neck: Normal Inspection, Supple Respiratory: Lungs Clear, Normal Breath Sounds, No Respiratory Distress Cardiovascular: Regular Rate, Rhythm, No Edema, No Murmur Gastrointestinal: Normal Bowel Sounds, Non Tender, Soft Extremity: Normal Inspection, Non Tender Neurologic/Psychiatric: Alert, No Motor/Sensory Deficits, Disoriented Skin: Normal Color, Warm/Dry Lymphatic: No Adenopathy Results/Procedures Lab Laboratory Tests 08/05/19 05:20 Patient resulted labs reviewed. Assessment/Plan Assessment and Plan Assess & Plan/Chief Complaint Urinary tract infection due to Aerococcus Acute encephalopathy Remains afebrile without leukocytosis UA consistent with UTI Urine culture positive for Aerococcus Continue Ceftriaxone Remains disoriented, possible underlying dementia Acute kidney injury Cr 1.17 this morning -Continuous fluids discontinued -Giving NS 1 L bolus -Continue to monitor Hypokalemia Hypomagnesemia K 3.3 and mag 1.4 this morning Continue to monitor and replace as needed Hypertension Continue home clonidine -Increase Metoprolol and Hydralazine IV hydralazine as needed for his SBP greater than 180 Type II diabetes mellitus Increase to Levemir 15 units nightly Hold scheduled NovoLog Hold glyburide Sliding scale insulin DVT prophylaxis: SCDs, ambulation Diagnosis/Problems Diagnosis/Problems (1) Type 2 diabetes mellitus Status: Chronic Qualifiers: Diabetes mellitus rat exterminator insulin use: with skilled nursing use Diabetes mellitus complication status: with hyperglycemia Qualified Codes: E11.65 - Type 2 diabetes mellitus with hyperglycemia; Z79.4 - termite exterminator (current) use of insulin (2) Acute kidney injury Status: Acute (3) UTI (urinary tract infection) Status: Acute Qualifiers: Urinary tract infection type: acute cystitis Hematuria presence: without hematuria Qualified Codes: N30.00 - Acute cystitis without hematuria (4) Hypokalemia Status: Acute (5) HTN (hypertension) Status: Acute (6) Hypomagnesemia Status: Acute Clinical Quality Measures DVT/VTE Risk/Contraindication: Risk Factor Score Per Nursin RFS Level Per Nursing on Admit: 4+=Very High ROXANN HUSSEIN MD Aug 05, 2019 12:28
--- NOTE | 2019-08-05 23:35 | NUR ---
2340 PT BL0OD PRESSURE 216/95. DR HUSSEIN NOTIFIED AND NEW ORDER TO GIVE CLONIDINE 0.1 MG X1 DOSE AND IF BLOOD PRESSURE IS STILL HIGH AFTER 30 MINUTES TO GIVE HYDRALAZINE IV 10 MG X1 DOSE. 0020 BLOOD PRESSURE 199/86. HYDRALAZINE GIVEN.
[2019-08-05] MEDS ORDERED: cloNIDine 0.1 MG (CATAPRES) TAB PO ONE (23:45)
[2019-08-06] VITALS (19 sets, daily range): BP systolic 114–232; BP diastolic 64–108
[2019-08-06] MEDS ORDERED: hydrALAZINE (APESOLINE) 20 MG/ML VIAL IV ONE ×2 (00:30→02:15)
--- NOTE | 2019-08-06 02:12 | NUR ---
PT BLOOD PRESSURE 200/[address] HUSSEIN NOTIFIED AND NEW ORDER RECEIVED
[2019-08-06] MEDS: hydrALAZINE (APRESOLINE) 25 MG TAB PO SCH ×3 (06:02→22:57)
[2019-08-06] MEDS: inSUlin ASPART (NovoLOG) 1 UNIT/0.01 ML (CHARGE PER UNIT) SC SCH ×5 (06:03→21:13)
[2019-08-06 06:45] LABS: CALCIUM 9.9 MG/DL (8.5-10.1); CREATININE SERUM 1.11 MG/DL (0.60-1.30); MAGNESIUM 1.5 MG/DL (1.6-2.4); POTASSIUM 3.7 MMOL/L (3.6-5.0)
[2019-08-06] MEDS: hydrALAZINE (APESOLINE) 20 MG/ML VIAL IV PRN ×2 (06:46→12:51)
[2019-08-06] MEDS ORDERED: KCL 20 MEQ TAB (K-DUR) PO NR (07:38)
[2019-08-06] MEDS: ONDANSETRON 4 MG/2 ML (SDV) Z0FRAN IV PRN ×2 (08:23→13:44)
[2019-08-06] MEDS: MAGNESIUM 1 GM/100 ML IVPB 100 ML IV SCH ×4 (08:26→12:40)
--- NOTE | 2019-08-06 08:28 | NUR ---
PT NOTIFIED THIS RN OF PT VOMITING. PT BP AT THE TIME 232/78 HR [address] HUSSEIN NOTIFIED OF THIS VIA PHONE ORDER RECEIVED FOR STAT EKG AND TO APPLY TELE. LABETALOL 10MG IV PUSH ONCE. HEAT CT.
[2019-08-06] MEDS: cefTRIAXone FOR IV USE 1,000 MG in WATER (STERILE) FOR INJECTION 10 ML IV SCH (08:50)
[2019-08-06] MEDS: cloNIDine 0.2 MG (CATAPRES) TAB PO SCH ×3 (08:51→21:13)
[2019-08-06] MEDS: DOCUSATE SODIUM 100 MG (COLACE) CAP PO SCH ×2 (08:51→21:14)
[2019-08-06] MEDS: SENNA W/DOCUSATE (SENOKOT S) TABLET PO SCH ×2 (08:51→21:13)
[2019-08-06] MEDS ORDERED: LABETALOL HCL 20 MG/4 ML VIAL IV NR (08:54)
[2019-08-06] MEDS ORDERED: CARVEDILOL 12.5 MG (COREG) TABLET PO SCH ×2 (09:00→21:00)
[2019-08-06] MEDS: PATIENT MAY USE OWN MED,SINGLE MED PO SCH (09:02)
[2019-08-06] MEDS: ceTIRizine 10 MG (ZyrTEC) TAB NON-FORMULARY PO SCH (09:02)
--- NOTE | 2019-08-06 09:30 | NUR ---
LABETALOL GIVEN IV PUSH AFTER PT WAS PLACED ON TELE MONITOR AND ICU WAS NOTIFIED OF THIS RN GIVING MEDICATION. PT TOLERATED WELL. AT BEDSIDE.
--- NOTE | 2019-08-06 10:58 | Diagnostic Imaging Report ---
PROCEDURE: CT head without contrast. TECHNIQUE: Multiple contiguous axial images were obtained through the brain without the use of intravenous contrast. Auto Exposure Controls were utilized during the CT exam to meet ALARA standards for radiation dose reduction. INDICATION: Altered mental status. Weakness. COMPARISON: CT head on 12/03/2018. FINDINGS: The ventricles and cortical sulci are age-appropriate. There is no midline shift or mass-effect. No acute intracranial hemorrhage is seen. There is no CT evidence of acute territorial ischemia. Chronic microvascular disease is seen in the periventricular and subcortical white matter. Old lacunar infarct is seen in the left basal ganglia. No focal masses or collections are present. The calvarium is intact. The visualized paranasal sinuses are clear. IMPRESSION: 1. No hemorrhage or focal intra-axial mass. No CT evidence of large acute territorial ischemia. 2. Chronic microvascular disease with old lacunar infarct in the left basal ganglia. Dictated by: Dictated on workstation # [id number]
--- NOTE | 2019-08-06 12:34 | Progress Note - Hospitalist ---
Subjective HPI/CC On Admission Date Seen by Provider: Aug 06, 2019 Time Seen by Provider: 10:00 altered mental status Subjective/Events-last exam She remains disoriented. She is oriented to self, but not to place or date. She appears to be having word-finding difficulties. She had an episode of nausea and vomiting this morning. She denies any fever, chills, lightheadedness, dizziness, headache, chest pain, dyspnea, abdominal pain, diarrhea. Focused Exam Lactate Level 08/06/19 07:30: Lactic Acid Level 2.54*H 08/06/19 09:30: Lactic Acid Level 2.80*H Lactic Acid Level Laboratory Tests Test 08/06/19 09:30 Lactic Acid Level 2.80 MMOL/L (0.50-2.00) *H Objective Exam Vital Signs Vital Signs Date Time Temp Pulse Resp B/P (MAP) Pulse Ox O2 Delivery O2 Flow Rate FiO2 08/06/19 12:18 103 08/06/19 12:08 208/94 (132) 08/06/19 11:04 37.6 18 95 Room Air Capillary Refill : Less Than 3 Seconds General Appearance: No Apparent Distress, WD/WN HEENT: PERRL/EOMI, Pharynx Normal, Moist Mucous Membranes Neck: Normal Inspection, Non Tender, Supple; No Carotid Bruit, No Thyromegaly Respiratory: Lungs Clear, Normal Breath Sounds, No Respiratory Distress Cardiovascular: Regular Rate, Rhythm, No Edema, No Murmur, Normal Peripheral Pulses Gastrointestinal: Normal Bowel Sounds, Non Tender, Soft Extremity: Normal Inspection, Non Tender, No Pedal Edema Neurologic/Psychiatric: Alert, Disoriented, Motor Weakness (generalized), Other (word-finding difficulty) Skin: Normal Color, Warm/Dry Results/Procedures Lab Laboratory Tests 08/06/19 05:55 Patient resulted labs reviewed. Assessment/Plan Assessment and Plan Assess & Plan/Chief Complaint Hypertensive emergency Acute encephalopathy -BP significantly elevated with SBP >200 overnight, slightly improved this morning -Continued disorientation, CT head without acute abnormalities -Monitor on telemetry -Add Losartan, increase Hydralazine, transition from Toprol to Coreg -Continue IV Hydralazine and Labetalol as needed -If unable to be controlled, will need to transfer to ICU for continuous BP medication -Secondary hypertension workup initiated -TSH and T4 normal -Plasma metanephrines pending -Renin/Gabe ratio pending -Renal artery ultrasound ordered -Consider sleep study as outpatient HAGMA Lactic acid mildly elevated Beta-hydroxybutyrate mildly elevated Hold off on IV fluids with severe hypertension Continue insulin regimen Urinary tract infection due to Aerococcus Remains afebrile without leukocytosis UA consistent with UTI Urine culture positive for Aerococcus Continue Ceftriaxone Remains disoriented, possible underlying dementia playing a role Acute kidney injury Cr 1.11 this morning, stable Continue to monitor Hypokalemia, resolved Hypomagnesemia K 3.7 and mag 1.5 this morning Continue to monitor and replace as needed Type II diabetes mellitus A1C 7.8% Increase to Levemir 30 units nightly Novolog 5 units with meals Hold glyburide Increase sliding scale insulin DVT prophylaxis: SCDs, ambulation Diagnosis/Problems Diagnosis/Problems (1) Type 2 diabetes mellitus Status: Chronic Qualifiers: Diabetes mellitus [facility] insulin use: with [facility] use Diabetes mellitus complication status: with hyperglycemia Qualified Codes: E11.65 - Type 2 diabetes mellitus with hyperglycemia; Z79.4 - detention (current) use of insulin (2) Acute kidney injury Status: Acute (3) UTI (urinary tract infection) Status: Acute Qualifiers: Urinary tract infection type: acute cystitis Hematuria presence: without hematuria Qualified Codes: N30.00 - Acute cystitis without hematuria (4) Hypokalemia Status: Acute (5) HTN (hypertension) Status: Acute (6) Hypomagnesemia Status: Acute Clinical Quality Measures DVT/VTE Risk/Contraindication: Risk Factor Score Per Nursin RFS Level Per Nursing on Admit: 4+=Very High ROXANN HUSSEIN MD Aug 06, 2019 12:34
[2019-08-06] MEDS ORDERED: LOSARTAN 100 MG (COZAAR) TABLET PO NR (12:41)
[2019-08-06] MEDS ORDERED: cloNIDine 0.2 MG (CATAPRES) TAB PO SCH (13:00)
--- NOTE | 2019-08-06 14:10 | NUR ---
DR HUSSEIN NOTIFIED VIA PHONE OF PT BP 210/99 MANUALLY AFTER PT VOMITING. PT HAD RECEIVED PO CLONIDINE AND LOSARTAN AT 1250 ALONG WITH PRN IV HYDRALAZINE FOR BP 208/94. DR HUSSEIN TO GET BACK WITH THIS RN FOR NEW ORDERS. 1420 DR HUSSEIN NOTIFIED THIS RN OF PT TRANSFERRING TO ICU.
[2019-08-06] MEDS ORDERED: LABETALOL INJECTION 200 MG in NS (IVPB) 160 ML IV PRN (14:15)
--- NOTE | 2019-08-06 14:45 | NUR ---
PT TRANSFERRED TO ICU AT THIS TIME. REPORT GIVEN TO CAITLYN DELGADO. ALL BELONGINGS SENT WITH PT AND .
[2019-08-06] MEDS ORDERED: ESMOLOL DRIP PREMIX 250 ML IV SCH (15:00)
[2019-08-06] MEDS: LACTATED RINGERS 1,000 ML IV SCH (21:14)
[2019-08-07] VITALS (24 sets, daily range): BP systolic 72–204; BP diastolic 28–113
--- NOTE | 2019-08-07 03:05 | NUR ---
This RN notified EICU of decreased BP with SBP in 80's despite esmolol being turned off at 0003.
[2019-08-07] MEDS ORDERED: NS IV 1000 ML 1,000 ML ONE (03:11)
[2019-08-07] MEDS ORDERED: NS IV 1000 ML 1,000 ML IV ONE (03:30)
[2019-08-07 03:55] LABS: BASOPHILS % (AUTO) 0 % (0-10); EOSINOPHILS # (AUTO) 0.1 10^3/uL (0.0-0.3); EOSINOPHILS % (AUTO) 1 % (0-10); HEMATOCRIT 35 % (35-52); HEMOGLOBIN 11.4 G/DL (11.5-16.0); LYMPHOCYTES # (AUTO) 1.8 X 10^3 (1.0-4.0); LYMPHOCYTES % (AUTO) 28 % (12-44); MEAN CORPUSCULAR HEMOGLOBIN 29 PG (25-34); MEAN CORPUSCULAR HGB CONC 33 G/DL (32-36); MEAN CORPUSCULAR VOLUME 89 FL (80-99); MEAN PLATELET VOLUME 12.6 FL (7.4-10.4); MONOCYTES # (AUTO) 0.7 X 10^3 (0.0-1.0); MONOCYTES % (AUTO) 10 % (0-12); NEUTROPHILS # (AUTO) 3.8 X 10^3 (1.8-7.8); NEUTROPHILS % (AUTO) 60 % (42-75); PLATELET COUNT 193 10^3/uL (130-400); RED CELL DISTRIBUTION WIDTH 16.5 % (10.0-14.5); WHITE BLOOD COUNT 6.4 10^3/uL (4.3-11.0)
[2019-08-07 04:16] LABS: CALCIUM 8.8 MG/DL (8.5-10.1); CREATININE SERUM 1.09 MG/DL (0.60-1.30); MAGNESIUM 2.2 MG/DL (1.6-2.4); POTASSIUM 3.6 MMOL/L (3.6-5.0)
[2019-08-07] MEDS: POTASSIUM CL 10MEQ/50ML IVPB 50 ML IV SCH ×5 (04:53→09:23)
[2019-08-07] MEDS: MAGNESIUM 1 GM/100 ML IVPB 100 ML IV SCH (04:53)
[2019-08-07] MEDS: KCL 20 MEQ TAB (K-DUR) PO SCH (04:53)
[2019-08-07] MEDS: inSUlin ASPART (NovoLOG) 1 UNIT/0.01 ML (CHARGE PER UNIT) SC SCH ×7 (05:30→22:21)
[2019-08-07] MEDS: LACTATED RINGERS 1,000 ML IV SCH ×2 (06:40→22:24)
--- NOTE | 2019-08-07 06:46 | Pulmonary Consultation ---
History of Present Illness History of Present Illness Date of Consultation 08/07/19 06:41 Time Seen by Provider: 06:41 Date of Admission History of Present Illness 68yo with hx of HTN, DM II, admitted on 08/04 secondary to worsening confusion, and weakness. Pt was found to have an acute UTI. Pt failed out patient BCTM. Symptoms started 2-3 days prior to admission. She does not drink alcohol or use any illicit drugs. Pt was transferred to ICU yesterday and placed on Esmolol gtt secondary to severe HTN. Esmolol gtt is now off secondary to hypotension. RN states pt's BP has been all over. Currently taking BP on ankle. I am consulted for ICU management. Allergies and Home Medications Allergies Coded Allergies: canagliflozin (Verified Allergy, Severe, ANAPHYLAXIS, 08/03/19) iodine (Unverified Adverse Reaction, Severe, migraine headache, 08/03/19) lorazepam (Verified Adverse Reaction, Severe, ELEVATED BLOOD PRESSURE, ) zolpidem (Verified Adverse Reaction, Severe, SLEEP WALK, 08/03/19) codeine (Unverified Adverse Reaction, Mild, INCREASED ACTIVITY, 08/03/19) erythromycin base (Unverified Adverse Reaction, Mild, NAUSEA, 08/03/19) Heparin Analogues (Unverified Adverse Reaction, Unknown, 08/03/19) Home Medications Ascorbate Calcium 500 Mg Tablet, 500 MG PO 1200, (Reported) Aspirin 81 Mg Tablet.dr, 81 MG PO 1200, (Reported) Cetirizine HCl 10 Mg Tablet, 10 MG PO DAILY, (Reported) Cholecalciferol (Vitamin D3) 2,000 Unit Tab.chew, 1,000 UNIT PO DAILY, (Reported) Clonidine HCl 0.2 Mg Tablet, 0.2 MG PO TID, (Reported) Fluticasone Propionate 16 Gm [place].susp, 2 SPRAYS NS DAILY PRN for ALLERGIES/CO NGESTION, (Reported) Glipizide 5 Mg Tab.er.24, 5 MG PO BID, (Reported) Insulin Detemir 100 Unit/1 Ml Insuln.pen, 14-15 UNITS SC HS, (Reported) Insuln Asp Prt/Insulin Aspart 300 Units/3 Ml Solution, 8-11 UNITS SC 1200,1700, (Reported) Lactobacillus Combination No.4 1 Each Capsule, 1 CAP PO DAILY, (Reported) Levomefolate/B6/B12/Algal Oil 1 Each Capsule, 1 CAP PO BID, (Reported) Losartan Potassium 50 Mg Tablet, 50 MG PO DAILY, (Reported) Metoprolol Succinate 100 Mg Tab.er.24h, 100 MG PO 1200, (Reported) Mirtazapine 7.5 Mg Tablet, 7.5 MG PO HS, (Reported) Multivitamin with Minerals 1 Each Tablet, 1 TAB PO 1200, (Reported) Oxybutynin Chloride 10 Mg Tab.er.24, 10 MG PO DAILY, (Reported) Potassium Chloride 10 Meq Tablet.er, 10 MEQ PO DAILY, (Reported) Sulfamethoxazole/Trimethoprim 1 Each Tablet, 1 TAB PO BID, (Reported) 7 DAY SUPPLY FILLED 08-02-19 [Elemental Magnesium] , 1 TAB PO BID, (Reported) Past Cscivzp-Ajywqi-Ibxzxs Hx Past Med/Social Hx: Reviewed Nursing Past Med/Soc Hx Patient Social History Alcohol Use: Denies Use Recreational Drug Use: No 2nd Hand Smoke Exposure: No Recent Foreign Travel: No Contact w/Someone Who Travel: No Recent Infectious Disease Expo: No Recent Hopitalizations: No (DC'D 12/08/18) Physical Abuse: No Sexual Abuse: No Immunizations Up To Date Tetanus Booster (TDap): More than 5yrs Date of Pneumonia Vaccine: Aug 01, 2012 Date of Influenza Vaccine: Aug 26, 2017 Seasonal Allergies Seasonal Allergies: Yes Past Medical History Surgeries: Yes (thoracentesis) Appendectomy, Gallbladder, Hysterectomy, Pancreatic Respiratory: Yes (Thoracentesis) Cardiac: Yes High Cholesterol, Hypertension Neurological: Yes Headaches /Migraines, Multiple Sclerosis, Stroke, TIA 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 Disorders: No [employer] History: Hysterectomy, Menopausal Genitourinary: Yes Bladder Infection Gastrointestinal: Yes Chronic Constipation, Pancreatitis Musculoskeletal: Yes (generalized weakness of all extremities) Endocrine: Yes (History of severe electrolyte disturbances) Diabetes, Insulin dep HEENT: No Cancer: No Psychosocial: Yes Anxiety, Depression Integumentary: No Blood Disorders: No Adverse Reaction/Blood Tranf: No Family Medical History Arthritis 19 MOTHER Cardiovascular disease 19 FATHER 19 MOTHER Prostate cancer in father 19 FATHER Heart Disease, CVA Review of Systems Time Seen by Provider: 06:53 Constitutional: Fever, Chills, Sweats, Weakness, Malaise; No: Other Eyes: No: Pain, Vision change, Conjunctivae inflammation, Eyelid inflammation, Other, Redness ENT: No: Ear pain, Ear discharge, Nose pain, Nose discharge, Nose congestion, Mouth pain, Mouth swelling, Throat pain, Throat swelling, Other Respiratory: No: Cough, Dry, Shortness of breath, SOB with excertion, Wheezing, Hemoptysis, Pleuritic Pain, Sputum, Wheezing, Other Cardiovascular: Palpitations, Paroxysmal Noc. Dyspnea; No: Chest Pain, Orthopnea, Edema, Lt Headedness, Other Gastrointestinal: No: Nausea, Vomiting, Abdominal Pain, Diarrhea, Constipation, Melena, Hematochezia, Other Sepsis Event Evaluation Height, Weight, BMI Height: 5'4.00" Weight: 119lbs. 0.0oz. 53.840716ci; 22.35 BMI Method:Stated Exam Exam Vital Signs Date Time Temp Pulse Resp B/P (MAP) Pulse Ox O2 Delivery O2 Flow Rate FiO2 08/07/19 06:30 98 14 128/67 (87) 97 Room Air 08/07/19 05:00 98 10 159/95 (116) 99 Room Air 08/07/19 04:00 103 14 132/109 (117) 98 Room Air 08/07/19 04:00 36.5 08/07/19 03:00 90 14 89/62 (71) 98 Room Air 08/07/19 02:00 95 13 79/59 (66) 98 Room Air 08/07/19 01:04 98 08/07/19 01:00 98 13 94/71 (79) 99 Room Air 08/07/19 00:00 36.7 08/07/19 00:00 92 14 80/54 (63) 99 Room Air 08/06/19 23:27 36.6 08/06/19 23:02 37.3 08/06/19 23:00 100 8 114/83 (93) 96 Room Air 08/06/19 22:00 87 16 143/75 (97) 96 Room Air 08/06/19 21:00 117/64 (81) 96 Room Air 08/06/19 20:00 98 Room Air 08/06/19 20:00 175/87 (116) 96 Room Air 08/06/19 19:45 37.0 08/06/19 19:00 175/98 (123) 96 Room Air 08/06/19 19:00 99 08/06/19 18:00 98 168/95 (119) 96 Room Air 08/06/19 17:00 99 147/88 (107) 94 Room Air 08/06/19 16:00 104 201/98 (132) 95 Room Air 08/06/19 15:57 177/88 08/06/19 15:50 37.2 08/06/19 15:00 111 189/108 (135) 95 Room Air 08/06/19 14:05 210/99 (136) 08/06/19 12:18 103 08/06/19 12:08 208/94 (132) 08/06/19 11:04 37.6 103 18 202/98 (132) 95 Room Air 08/06/19 10:30 105 147/72 (97) 08/06/19 10:06 109 20 174/71 (105) 08/06/19 09:26 117 08/06/19 08:30 38.0 128 16 232/78 (129) 96 Room Air 08/06/19 07:45 96 Room Air I & O 08/07/19 07:00 Intake Total 1450 ml Output Total 300 ml Balance 1150 ml Height & Weight Height: 5'4.00" Weight: 119lbs. 0.0oz. 53.584494we; 22.35 BMI Method:Stated General Appearance: No Apparent Distress, WD/WN, Chronically ill HEENT: PERRL/EOMI, Pharynx Normal, Moist Mucous Membranes Neck: Normal Inspection, Non Tender, Supple Respiratory: Lungs Clear, Normal Breath Sounds, No Respiratory Distress Cardiovascular: Regular Rate, Rhythm, No Edema, No Murmur, Normal Peripheral Pulses Capillary Refill: Less Than 3 Seconds Extremity: Normal Inspection, Non Tender, No Pedal Edema Neurologic/Psychiatric: Alert, Disoriented, Motor Weakness, Other Skin: Normal Color, Warm/Dry Lymphatic: No Adenopathy Results Lab Laboratory Tests 08/06/19 05:55 08/07/19 03:25 08/07/19 03:35 Assessment/Plan Assessment/Plan HTN emergency - Currently SBP is 159 -Esmolol gtt is off secondary to hypotension -Continue Clonidine, losartan restart PO Lopressor with hold parameters -Add HCTZ, and norvasc -Hydralazine IV PRN for SBP >160 and D/C PO hydralazine for now -Continue to monitor BP -HTN workup per hospitalist pending Metabolic encephalopathy with probable chronic dementia -CT on admission is negative UTI -Continue Rocephin -Await cultures Probable YAMILKA -Will plan for out pt PSG NIDDM II ROSSI JOSHI DO Aug 07, 2019 06:46
--- NOTE | 2019-08-07 07:34 | Diagnostic Imaging Report ---
INDICATION: Dyspnea. COMPARISON: 12/08/2018 FINDINGS: Single frontal view of the chest demonstrates normal heart size and pulmonary vascularity. The lungs are well aerated and clear. No large pleural effusion or pneumothorax is seen. The visualized osseous structures show no acute abnormalities. IMPRESSION: 1. No acute cardiopulmonary process. Dictated by: Dictated on workstation # [id number]
--- NOTE | 2019-08-07 07:35 | Consultation-Cardiology ---
HPI-Cardiology Cardiology Consultation Date of Consultation 08/07/19 Date of Admission Time Seen by Provider: 07:30 Indication: Hypertensive emergency HPI 68-year-old lady with history of CVA and TIA, had some degree of dependency as a baseline, being cared for by her . Brought to the emergency room for generalized weakness and change in mental status, patient was lethargic and she was noted to have urinary tract infection, she was receiving treatment and deteriorated then brought to the emergency room. During her hospital stay patient had labile blood pressure with episode of severe hypertension, she had change in her mental status, she is currently not verbal, she is following command awake and alert, no focal weakness but unable to talk, responded by yes or no. I was unable to obtain any history from the patient, history was obtained by reviewing her records she denied any active pain, not having any dyspnea Home Medications & Allergies Allergies: Coded Allergies: canagliflozin (Verified Allergy, Severe, ANAPHYLAXIS, 08/03/19) iodine (Unverified Adverse Reaction, Severe, migraine headache, 08/03/19) lorazepam (Verified Adverse Reaction, Severe, ELEVATED BLOOD PRESSURE, 08/03/19) zolpidem (Verified Adverse Reaction, Severe, SLEEP WALK, 08/03/19) codeine (Unverified Adverse Reaction, Mild, INCREASED ACTIVITY, 08/03/19) erythromycin base (Unverified Adverse Reaction, Mild, NAUSEA, 08/03/19) Heparin Analogues (Unverified Adverse Reaction, Unknown, 08/03/19) Home Medication List Reviewed: Yes MPS-Axwktx-Txhnbt Hx Patient Social History Marital Status: Employed/Student: retired Alcohol Use: Denies Use Recreational Drug Use: No 2nd Hand Smoke Exposure: No Recent Foreign Travel: No Recent Infectious Disease Expo: No Recent Hopitalizations: No (DC'D 12/08/18) Immunizations Up To Date Tetanus Booster (TDap): More than 5yrs Date of Pneumonia Vaccine: Aug 01, 2012 Date of Influenza Vaccine: Aug 26, 2017 Past Medical History Discussed below Family Medical History Significant Family History: Heart Disease, CVA Family History: Arthritis 19 MOTHER Cardiovascular disease 19 FATHER 19 MOTHER Prostate cancer in father 19 FATHER Review of Systems-General Review of Systems Constitutional: weakness, other (Unable to provide review of systems, patient is not verbal, not having any active pain) EENTM: no symptoms reported Respiratory: no symptoms reported Cardiovascular: no symptoms reported Gastrointestinal: no symptoms reported Genitourinary: no symptoms reported : No Musculoskeletal: no symptoms reported Skin: no symptoms reported Psychiatric/Neurological: Weakness, Other (Confusion) Reviewed Test Results Reviewed Test Results Lab Laboratory Tests Test 08/06/19 09:02 08/06/19 09:30 08/06/19 11:07 08/06/19 19:00 Range/Units Glucometer 291 H 384 H 70-110 MG/DL Lactic Acid Level 2.80 *H 3.15 *H 0.50-2.00 MMOL/L Test 08/06/19 21:00 08/07/19 03:25 08/07/19 03:35 Range/Units Lactic Acid Level 2.53 *H 1.16 0.50-2.00 MMOL/L Sodium Level 140 135-145 MMOL/L Potassium Level 3.6 3.6-5.0 MMOL/L Chloride Level 107 98-107 MMOL/L Carbon Dioxide Level 23 21-32 MMOL/L Anion Gap 10 5-14 MMOL/L Blood Urea Nitrogen 23 H 7-18 MG/DL Creatinine 1.09 0.60-1.30 MG/DL Estimat Glomerular Filtration Rate 50 BUN/Creatinine Ratio 21 Glucose Level 152 H 70-105 MG/DL Calcium Level 8.8 8.5-10.1 MG/DL Phosphorus Level 3.5 2.3-4.7 MG/DL Magnesium Level 2.2 1.6-2.4 MG/DL White Blood Count 6.4 4.3-11.0 10^3/uL Red Blood Count 3.91 L 4.35-5.85 10^6/uL Hemoglobin 11.4 L 11.5-16.0 G/DL Hematocrit 35 35-52 % Mean Corpuscular Volume 89 80-99 FL Mean Corpuscular Hemoglobin 29 25-34 PG Mean Corpuscular Hemoglobin Concent 33 32-36 G/DL Red Cell Distribution Width 16.5 H 10.0-14.5 % Platelet Count 193 130-400 10^3/uL Mean Platelet Volume 12.6 H 7.4-10.4 FL Neutrophils (%) (Auto) 60 42-75 % Lymphocytes (%) (Auto) 28 12-44 % Monocytes (%) (Auto) 10 0-12 % Eosinophils (%) (Auto) 1 0-10 % Basophils (%) (Auto) 0 0-10 % Neutrophils # (Auto) 3.8 1.8-7.8 X 10^3 Lymphocytes # (Auto) 1.8 1.0-4.0 X 10^3 Monocytes # (Auto) 0.7 0.0-1.0 X 10^3 Eosinophils # (Auto) 0.1 0.0-0.3 10^3/uL Basophils # (Auto) 0.0 0.0-0.1 10^3/uL Physical Exam Physical Exam Vital Signs Vital Signs - First Documented 08/03/19 19:20 Temp 36.8 Pulse 75 Resp 20 B/P (MAP) 184/89 (120) Pulse Ox 98 Capillary Refill : Less Than 3 Seconds Height, Weight, BMI Height: 5'4.00" Weight: 119lbs. 0.0oz. 53.798359xi; 22.35 BMI Method:Stated General Appearance: No Apparent Distress, WD/WN, Chronically ill HEENT: PERRL/EOMI, Pharynx Normal, Moist Mucous Membranes Neck: Normal Inspection, Non Tender, Supple Respiratory: Lungs Clear, Normal Breath Sounds, No Respiratory Distress Cardiovascular: Regular Rate, Rhythm, No Edema, No Murmur, Normal Peripheral Pulses Gastrointestinal: Normal Bowel Sounds, Non Tender, Soft Extremity: Normal Inspection, Non Tender, No Pedal Edema Neurologic/Psychiatric: Alert, Disoriented, Motor Weakness, Other Skin: Normal Color, Warm/Dry Lymphatic: No Adenopathy A/P-Cardiology Admission Diagnosis Acute change in mental status Hypertensive emergency Urinary tract infection Diabetes mellitus Assessment/Plan Acute change in mental status, questionable secondary to sepsis versus hyperte nsive encephalopathy, managed by primary care physician Labile hypertension with hypertensive emergency, currently borderline h ypotensive, Esmolol drip was discontinued. Continue to monitor blood pressure and adjust her medicine accordingly UTI, receiving antibiotic, managed by primary care team History of CVA and TIA, baseline some degree of confusion Diabetes mellitus, followed and managed by primary care physician Clinical Quality Measures DVT/VTE Risk/Contraindication: Risk Factor Score Per Nursin RFS Level Per Nursing on Admit: 4+=Very High ROSIE RAMOS MD Aug 07, 2019 07:35
--- NOTE | 2019-08-07 08:21 | Physical Therapy Progress Note ---
Therapy Progress Note Patient transferred to ICU secondary to elevated BP and vomiting. PT will require new orders secondary to transfer. SOPHIA ROSARIO PT Aug 07, 2019 08:21
--- NOTE | 2019-08-07 09:03 | Diagnostic Imaging Report ---
INDICATION: Right upper extremity pain and erythema. COMPARISON: 12/05/2018. EXAMINATION: Duplex Doppler, grayscale, and color flow imaging of the right upper extremity veins. FINDINGS: The deep veins of the right upper extremity (subclavian, jugular, axillary, and brachial veins) show no evidence of intraluminal thrombosis with normal compressibility, color flow, and augmentation. The radial and ulnar veins appear patent as well. The superficial veins (basilic and cephalic veins) are patent. IMPRESSION: No deep venous thrombosis seen in the right upper extremity veins. Dictated by: Dictated on workstation # [id number]
[2019-08-07] MEDS ORDERED: WATER (STERILE) FOR INJECTION 10 ML ONE (09:14)
[2019-08-07] MEDS ORDERED: cefTRIAXone 1,000 MG IV (ROCEPHIN) VIAL ONE (09:14)
[2019-08-07] MEDS: cefTRIAXone FOR IV USE 1,000 MG in WATER (STERILE) FOR INJECTION 10 ML IV SCH (09:18)
[2019-08-07] MEDS: cloNIDine 0.2 MG (CATAPRES) TAB PO SCH ×3 (09:19→22:24)
[2019-08-07] MEDS: LOSARTAN 100 MG (COZAAR) TABLET PO SCH (09:19)
[2019-08-07] MEDS: SENNA W/DOCUSATE (SENOKOT S) TABLET PO SCH ×2 (09:19→22:24)
[2019-08-07] MEDS: DOCUSATE SODIUM 100 MG (COLACE) CAP PO SCH ×2 (09:19→22:24)
[2019-08-07] MEDS: amLODIPine 10 MG (NORVASC) TAB PO SCH (09:19)
[2019-08-07] MEDS: meTOprolol TARTRATE 50 MG (LOPRESSOR) TAB PO SCH ×2 (09:20→22:21)
[2019-08-07] MEDS: ceTIRizine 10 MG (ZyrTEC) TAB NON-FORMULARY PO SCH (09:20)
[2019-08-07] MEDS: PATIENT MAY USE OWN MED,SINGLE MED PO SCH (09:20)
[2019-08-07] MEDS: HYDROCHLOROTHIAZIDE 25 MG (HCTZ) TAB PO SCH (09:44)
--- NOTE | 2019-08-07 10:27 | Physical Therapy Evaluation ---
PT Evaluation-General Medical Diagnosis Admission Date Aug 03, 2019 at 21:05 Medical Diagnosis: UTI/AMS/weakness Onset Date: Aug 03, 2019 Therapy Diagnosis Therapy Diagnosis: debility/weakness Height/Weight Height (Feet): 5 Height (Inches): 4.00 Weight (Pounds): 119 Weight (Ounces): 0.0 Precautions Precautions/Isolations: Fall Prevention, Standard Precautions, Pressure Ulcer Weight Bear Status Right Lower Extremity: Right Weight Bearing/Tolerated Left Lower Extremity: Left Weight Bearing/Tolerated Referral Physician: Kwadwo Reason for Referral: Evaluation/Treatment Medical History Pertinent Medical History: Atrial Fib, CVA, DM, HTN, Neuropathy Current History Transfer to ICU secondary to elevated BP Reviewed History: Yes Social History Home: Single Level Current Living Status: Spouse Entry Into Home: Ramp Prior Prior Level of Function Therapy Quality Codes: 6 Independent with activity with or without an assistive device 5 Patient requires set up or clean up by helper. Patient completes activity by themselves 4 Supervision or touching assist (CGA). [facility] provide cues , steadying assist 3 The helper provides less than half the effort to complete the activity 2 The helper provides more than half the effort to complete the activity 1 Dependent. The helper does all the effort to complete an activity 7 Patient refused to complete or attempt activity 9 The patient did not perform the activity before the current illness or injury 88 Not attempted due to Medical conditions or safety concerns Indoor Mobility (Ambulation): Needed Some Help Stairs: Not Applicalbe Prior Devices Use: Manual wheelchair, Walker PT Evaluation-Current Subjective Patient agrees to PT Objective Patient Orientation: Confused Problem Solving: Poor Attachments: [place] Catheter, IV ROM/Strength ROM Lower Extremities bilateral LE WFL Strength Lower Extremities 3-/5 grossly bilateral LE Integumentary/Posture Integumentary refer to nursing notes Bladder Incontinence: Yes Posture WFL Neuromuscular (Tone, Coordination, Reflexes) severely diminished due to weakness and MS Sensory Vision: Functional Hearing: Functional Sensation Right Lower Extremit: Impaired Sensation Left Lower Extremity: Impaired Transfers Roll Left to Right (QC): 2 Sit to Lying (QC): 2 Lying to Sitting/Side of Bed(Q: 2 Sit to Stand (QC): 2 Chair/Yzj-kv-Oblii Xfer(QC): 2 Gait Does the Patient Walk?: Yes Mode of Locomotion: Both Anticipated Mode of Locomotion: Both Distance (FIM): 1=up to 49 ft Walk 10 feet (QC): 88 Walk 50 ft with 2 Turns(QC): 88 Walk 150 ft (QC): 88 Walking 10ft/uneven surface-QC: 88 Distance: 5 steps Gait Assistive Device: FWW Comments/Gait Description unsteady Balance Sitting Static: Poor Sitting Dynamic: Poor Standing Static: Poor Standing Dynamic: Poor Assessment/Needs 68 y.o. female, will benefit from skilled PT to address functional strength and mobility to improve current LOF to safely return to home with spouse at maximum LOF. Rehab Potential: Fair PT Halfway Goals Halfway Goals PT Halfway Goals Time Frame: Aug 26, 2019 Sit to Lying (QC): 4 Lying-Sitting on Side/Bed(QC): 4 Sit to Stand (QC): 4 Roll Left to Right (QC): 4 Chair/Zoo-wx-Ucepo Xfer(QC): 4 Car Transfer (QC): 4 Does the Patient Walk: Yes Distance: 75' Walk 10 feet (QC): 4 Walk 10ft-Uneven Surface(QC): 4 Walk 50ft with 2 Turns (QC): 4 Walk 150 ft (QC): 9 Gait Assistive Device: FWW PT Plan Problem List Problem List: Activity Tolerance, Functional Strength, Safety, Balance, Gait, Transfer, Bed Mobility Treatment/Plan Treatment Plan: Continue Plan of Care Treatment Plan: Bed Mobility, Education, Functional Activity Shiv, Functional Strength, Gait, Safety, Therapeutic Exercise, Transfers Treatment Duration: Aug 26, 2019 Frequency: 6 times per week Estimated Hrs Per Day: .25 hour per day Patient and/or Family Agrees t: Yes Time/GCodes Time In: 915 Time Out: 926 Total Billed Treatment Time: 11 [facility] PT Aug 07, 2019 10:27
--- NOTE | 2019-08-07 10:40 | NUR ---
Pastoral Care Visit.
--- NOTE | 2019-08-07 10:58 | NUR ---
"RD ASSESSMENT PMHx: HTN, T2DM, AMS, hypercholesterolemia, pancreatitis, chronic constipation, MS, stroke PT INTERACTION: Pt was awake and pleasant for nutrition assessment. Note pt's present. Note pt PMH includes AMS. Pt's states current appetite appears to be good. states that appetite was pretty good for the past few weeks up until a few days ago where it had been poor. states no issues with chewing/swallowing at this time. states pt has had some issues with nausea recently, and one episode of emesis was recorded per chart review. states pt has no recent issues with constipation, though the pt had diarrhea 08/06. ABNORMAL NUTRITION-RELATED LAB VALUES: Hgb 11.4 (L); BUN 23 (H); glu 152 (H) Est. kcal needs: 7299-1104 kcal (25-30 kcal/kg) Est. Pro needs: 59-71 g Pro (1.0-1.2 g Pro/kg) PES STATEMENT: Inadequate oral intake related to nausea | vomiting | diarrhea as evidenced by pt interview () INTERVENTION: Continue with current diet order of CHO 60g/m 3snack diet. Encouraged pt to eat when able. Pt may benefit from anti-emetics if nausea/vomiting persists. Pt may benefit from anti-diarrheal if episodes of diarrhea persists. MONITOR/EVALUATE: PO Intake; Weight Status; Hydration Status; Stool Output; Lab Values Serjio Christensen, MS, RD, LD [phone]"
--- NOTE | 2019-08-07 11:28 | Occupational Therapy Eval ---
OT Evaluation-General/PLF Medical Diagnosis Admission Date Aug 03, 2019 at 21:05 Medical Diagnosis: UTI/AMS/weakness Onset Date: Aug 03, 2019 Therapy Diagnosis Therapy Diagnosis: decr self care, weakness, decr funct mob, Height/Weight Height (Feet): 5 Height (Inches): 4.00 Weight (Pounds): 119 Weight (Ounces): 0.0 Precautions Precautions/Isolations: Fall Prevention, Standard Precautions, Pressure Ulcer Safety Interventions: Bed Exit Alarm, Reorient-PRN Referral Physician: Kwadwo Referral Reason: Evaluation/Treatment Medical History Pertinent Medical History: Atrial Fib, CVA, DM, HTN, Neuropathy Additional Medical History Headaches, migraines, TIA, stroke. Chronic constipation. Anxiety, depression. Has been dx with MS but reported it may be related to elevated lactic acid instead of MS Current History Admitted with weakness, confusion, UTI. Transferred to ICU due to high BP Reviewed History: Yes Social History Home: Single Level Current Living Status: Spouse Entry Into Home: Ramp ADL-Prior Level of Function Therapy Quality Codes: 6 Independent with activity with or without an assistive device 5 Patient requires set up or clean up by helper. Patient completes activity by themselves 4 Supervision or touching assist (CGA). Champion provide cues , steadying assist 3 The helper provides less than half the effort to complete the activity 2 The helper provides more than half the effort to complete the activity 1 Dependent. The helper does all the effort to complete an activity 7 Patient refused to complete or attempt activity 9 The patient did not perform the activity before the current illness or injury 88 Not attempted due to Medical conditions or safety concerns ADL PLOF Comments reported that he helps her put on sock and shoes and helps with her bath (washes lower legs and back), using transfer bench and hand held shower. They have been using [facility] and she is able to take herself if needed. She can feed herself and groom/put on makeup. Some days are better than others. Self Care: Needed Some Help Functional Cognition: Needed Some Help DME/Equipment: Bath Bench, Shower Hose Supervisor Toy Assembly, Tub/Shower OT Current Status Subjective Pt seen in room, up in bed, very fatigued. Had been incontinent and tired from cleaning up. Mental Status/Objective Patient Orientation: Person Attachments: Central Line, Carson Catheter, Telemetry Current Upper Extremity ROM Decreased bilat shoulders actively. Upper Extremity Strength 3-/5 bilat ADL-Treatment ADL-Current Max assist transfer form bed to recliner with PT, FWW Education OT Patient Education: Rehab process Teaching Recipient: Patient, Family Teaching Methods: Discussion Response to Teaching: Verbalize Understanding OT Short Term Goals Short Term Goals 1 OT Machine Puller Over Goals Machine Puller Over Goals Time Frame: Aug 18, 2019 Eating (QC): 6 Oral Hygiene (QC): 5 Shower/Bathe Self (QC): 4 Upper Body Dressing (QC): 5 Lower Body Dressing (QC): 4 Toileting Hygiene (QC): 5 Toilet/Commode Transfer (QC): 5 Additional Goals: 1-Demonstrate ADL Tasks, 2-Verbalize Understanding, 3- ImproveStrength/Shiv 1=Demonstrate adherence to instructed precautions during ADL tasks. 2=Patient will verbalize/demonstrate understanding of assistive devices/modifications for ADL. 3=Patient will improve strength/tolerance for activity to enable patient to perform ADL's. OT Education/Plan Problem List/Assessment Assessment: Decreased Activ Tolerance, Decreased UE Strength, Dependent Transfers, Impaired Cognition, Impaired Self-Care Skills, Restricted Funct UE ROM Pt to benefit from skilled OT intervention for ADL training, transfers, strengthening, and safety education to increase level of independence and allow safe discharge plan. Discharge Recommendations Plan/Recommendations: Continue POC Therapy Discharge Recommendati: Post Acute OT Treatment Plan/Plan of Care Treatment,Training & Education: Yes Patient would benefit from OT for education, treatment and training to promote independence in ADL's, mobility, safety and/or upper extremity function for ADL's. Plan of Care: ADL Retraining, Functional Mobility, UE Funct Exercise/Act, UE Neuromus Re-Ed/Coord Treatment Duration: Aug 18, 2019 Frequency: 5 times per week Estimated Hrs Per Day: .25 hour per day Agreement: Yes Rehab Potential: Fair Time/GCodes Start Time: 10:55 Stop Time: 11:20 Total Time Billed (hr/min): 25 Billed Treatment Time visit, evaluation moderate intensity 25 minutes STAR ANDREWS OT Aug 07, 2019 11:28
--- NOTE | 2019-08-07 16:24 | Progress Note - Hospitalist ---
Subjective HPI/CC On Admission Date Seen by Provider: Aug 07, 2019 Time Seen by Provider: 07:30 altered mental status Subjective/Events-last exam Pt arouses to voice and attempts to answers questions but just states "I don't know" when she does speak. Focused Exam Lactate Level 08/06/19 19:00: Lactic Acid Level 3.15*H 08/06/19 21:00: Lactic Acid Level 2.53*H 08/07/19 03:25: Lactic Acid Level 1.16 Objective Exam Vital Signs Vital Signs Date Time Temp Pulse Resp B/P (MAP) Pulse Ox O2 Delivery O2 Flow Rate FiO2 08/07/19 13:00 82 08/07/19 12:00 17 98/58 (71) 96 Nasal Cannula 2.00 08/07/19 07:12 37.0 Capillary Refill : Less Than 3 Seconds General Appearance: No Apparent Distress, Chronically ill Respiratory: Lungs Clear, No Respiratory Distress Cardiovascular: Regular Rate, Rhythm, No Murmur Gastrointestinal: Normal Bowel Sounds, Soft Extremity: No Calf Tenderness Neurologic/Psychiatric: Other (arousable but disoriented) Results/Procedures Lab Laboratory Tests 08/07/19 03:25 08/07/19 03:35 Patient resulted labs reviewed. Assessment/Plan Assessment and Plan Assess & Plan/Chief Complaint Hypertensive emergency Acute encephalopathy -BP improved with esmolol gtt- now titrated off Current antihypeprtensive regimen is Losartan, Metoprolol, Amlodipine, HCTZ, clonidine -Continued disorientation, CT head without acute abnormalities -Monitor on telemetry -TSH and T4 normal -Plasma metanephrines pending -Renin/Gabe ratio pending -Renal artery ultrasound ordered -Consider sleep study as outpatient Urinary tract infection due to Aerococcus Remains afebrile without leukocytosis UA consistent with UTI Urine culture positive for Aerococcus Continue Ceftriaxone Remains disoriented, possible underlying dementia playing a role HAGMA- resolved Acute kidney injury- resolved Cr stable this morning Continue to monitor Hypokalemia, resolved Hypomagnesemia- resolved Continue to monitor and replace as needed Type II diabetes mellitus A1C 7.8% Levemir 30 units nightly Novolog 5 units with meals Hold glyburide Increase sliding scale insulin DVT prophylaxis: SCDs, ambulation Clinical Quality Measures DVT/VTE Risk/Contraindication: Risk Factor Score Per Nursin RFS Level Per Nursing on Admit: 4+=Very High NATI GARCIA MD Aug 07, 2019 16:24
[2019-08-08] VITALS (26 sets, daily range): BP systolic 113–222; BP diastolic 65–126
--- NOTE | 2019-08-08 00:50 | NUR ---
This RN notified EICU of patient's fluctuating blood pressure, several readings will be hypertensive with SBP >160 and next will be hypotensive SBP <90, no new orders at this time.
[2019-08-08 03:37] LABS: BASOPHILS % (AUTO) 1 % (0-10); EOSINOPHILS # (AUTO) 0.3 10^3/uL (0.0-0.3); EOSINOPHILS % (AUTO) 4 % (0-10); HEMATOCRIT 38 % (35-52); HEMOGLOBIN 12.3 G/DL (11.5-16.0); LYMPHOCYTES # (AUTO) 2.6 X 10^3 (1.0-4.0); LYMPHOCYTES % (AUTO) 31 % (12-44); MEAN CORPUSCULAR HEMOGLOBIN 28 PG (25-34); MEAN CORPUSCULAR HGB CONC 32 G/DL (32-36); MEAN CORPUSCULAR VOLUME 88 FL (80-99); MEAN PLATELET VOLUME 12.1 FL (7.4-10.4); MONOCYTES # (AUTO) 0.7 X 10^3 (0.0-1.0); MONOCYTES % (AUTO) 9 % (0-12); NEUTROPHILS # (AUTO) 4.6 X 10^3 (1.8-7.8); NEUTROPHILS % (AUTO) 56 % (42-75); PLATELET COUNT 222 10^3/uL (130-400); RED CELL DISTRIBUTION WIDTH 16.4 % (10.0-14.5); WHITE BLOOD COUNT 8.2 10^3/uL (4.3-11.0)
[2019-08-08 03:57] LABS: BUN/CREATININE RATIO 19; CALCIUM 9.4 MG/DL (8.5-10.1); CARBON DIOXIDE 23 MMOL/L (21-32); CHLORIDE 102 MMOL/L (98-107); GFR ESTIMATED > 60; GLUCOSE 163 MG/DL (70-105); MAGNESIUM 1.4 MG/DL (1.6-2.4); PHOSPHORUS 2.7 MG/DL (2.3-4.7); POTASSIUM 3.2 MMOL/L (3.6-5.0); SODIUM 137 MMOL/L (135-145)
--- NOTE | 2019-08-08 04:52 | Pulmonary Progress Note ---
Subjective Time Seen by a Provider: 06:37 Subjective/Events-last exam Pt is doing better. still off Cardene gtt. Sepsis Event Evaluation Height, Weight, BMI Height: 5'4.00" Weight: 119lbs. 0.0oz. 53.608484gf; 22.35 BMI Method:Stated Focused Exam Lactate Level 08/06/19 19:00: Lactic Acid Level 3.15*H 08/06/19 21:00: Lactic Acid Level 2.53*H 08/07/19 03:25: Lactic Acid Level 1.16 Exam Exam Vital Signs Date Time Temp Pulse Resp B/P (MAP) Pulse Ox O2 Delivery O2 Flow Rate FiO2 08/08/19 04:02 37.2 08/08/19 04:00 91 13 154/82 (106) 96 Nasal Cannula 2.00 08/08/19 03:00 97 12 171/99 (123) 97 Nasal Cannula 2.00 08/08/19 02:40 08/08/19 02:00 87 16 170/93 (118) 95 Nasal Cannula 2.00 08/08/19 01:00 92 10 113/74 (87) 97 Nasal Cannula 2.00 08/08/19 00:00 36.5 08/08/19 00:00 94 10 117/69 (85) 97 Nasal Cannula 2.00 08/07/19 23:00 92 10 113/75 (88) 97 Nasal Cannula 2.00 08/07/19 22:00 86 11 105/62 (76) 96 Nasal Cannula 2.00 08/07/19 21:00 89 8 88/28 (48) 97 Nasal Cannula 2.00 08/07/19 20:00 37.0 08/07/19 20:00 92 9 204/110 (141) 98 Nasal Cannula 2.00 08/07/19 20:00 98 Room Air 08/07/19 19:13 83 08/07/19 19:00 89 6 170/113 (132) 97 Nasal Cannula 2.00 08/07/19 18:00 89 15 179/106 (130) 98 Nasal Cannula 2.00 08/07/19 17:00 83 13 107/71 (83) 98 Nasal Cannula 2.00 08/07/19 16:00 37.5 08/07/19 16:00 79 14 86/65 (72) 97 Nasal Cannula 2.00 08/07/19 15:00 77 15 72/56 (61) 97 Nasal Cannula 2.00 08/07/19 14:00 79 16 95/64 (74) 97 Nasal Cannula 2.00 08/07/19 13:00 82 08/07/19 13:00 84 13 126/98 (107) 97 Nasal Cannula 2.00 08/07/19 13:00 82 08/07/19 12:00 74 17 98/58 (71) 96 Nasal Cannula 2.00 08/07/19 11:00 Nasal Cannula 2.00 08/07/19 11:00 89 12 178/101 (126) Nasal Cannula 2.00 08/07/19 10:30 Nasal Cannula 2.00 08/07/19 10:00 120 13 106/71 (83) 95 Room Air 08/07/19 09:00 117 9 106/71 (83) 98 Room Air 08/07/19 08:00 104 123/86 (98) Room Air 08/07/19 07:13 97 Room Air 08/07/19 07:12 37.0 08/07/19 07:00 98 119/74 (89) Room Air 08/07/19 07:00 99 08/07/19 06:30 98 14 128/67 (87) 97 Room Air 08/07/19 05:00 98 10 159/95 (116) 99 Room Air I & O 08/08/19 07:00 Intake Total 1910 ml Output Total 1550 ml Balance 360 ml Height & Weight Height: 5'4.00" Weight: 119lbs. 0.0oz. 53.761115tl; 22.35 BMI Method:Stated General Appearance: No Apparent Distress, Chronically ill HEENT: PERRL/EOMI, Pharynx Normal, Moist Mucous Membranes Neck: Normal Inspection, Non Tender, Supple Respiratory: Lungs Clear, No Respiratory Distress Cardiovascular: Regular Rate, Rhythm, No Murmur Capillary Refill: Less Than 3 Seconds Extremity: No Calf Tenderness Neurologic/Psychiatric: Other (arousable but disoriented) Skin: Normal Color, Warm/Dry Lymphatic: No Adenopathy Results Lab Laboratory Tests 08/06/19 05:55 08/07/19 03:25 08/07/19 03:35 08/08/19 03:09 Assessment/Plan Assessment/Plan HTN emergency - Currently SBP is 159 -Clonidine, losartan PO Lopressor - HCTZ, and norvasc -Hydralazine IV PRN for SBP >160 -Continue to monitor BP -HTN workup per hospitalist pending Metabolic encephalopathy with probable chronic dementia -CT on admission is negative Hypokalemia -replace UTI -Continue Rocephin -Await cultures Probable YAMILKA -Will plan for out pt PSG NIDDM II ROSSI JOSHI DO Aug 08, 2019 04:52
[2019-08-08] MEDS: POTASSIUM CL 10MEQ/50ML IVPB 50 ML IV SCH ×10 (04:58→12:21)
[2019-08-08] MEDS: KCL 20 MEQ TAB (K-DUR) PO SCH (04:59)
[2019-08-08] MEDS: inSUlin ASPART (NovoLOG) 1 UNIT/0.01 ML (CHARGE PER UNIT) SC SCH ×7 (04:59→21:57)
[2019-08-08] MEDS: MAGNESIUM 1 GM/100 ML IVPB 100 ML IV SCH ×3 (04:59→06:23)
--- NOTE | 2019-08-08 07:10 | Cardiology Progress Note ---
Subjective Date Seen by Provider: Aug 08, 2019 Time Seen by Provider: 07:07 Subjective/Events-last exam Patient is laying down in bed, still confused. Has been having labile blood pressure with systolic ranging between 80-200 Review of Systems General: Fatigue, Malaise, Other (Confused,) HEENT: No Head Aches, No Visual Changes, No Eye Pain, No Ear Pain, No Dysphasia, No Sinus Congestion, No Post Nasal Drip, No Sore Throat, No Other Pulmonary: No Dyspnea, No Cough, No Pleuritic Chest Pain, No Other Cardiovascular: No: Chest Pain, Palpitations, Orthopnea, Paroxysmal Noc. Dyspnea, Edema, Lt Headedness, Other Focused Exam Lactate Level 08/06/19 19:00: Lactic Acid Level 3.15*H 08/06/19 21:00: Lactic Acid Level 2.53*H 08/07/19 03:25: Lactic Acid Level 1.16 Objective-Cardiology Exam Last Set of Vital Signs Vital Signs 08/08/19 08/08/19 04:02 06:00 Temp 37.2 Pulse 88 Resp 16 B/P (MAP) 152/83 (106) Pulse Ox 95 O2 Delivery Nasal Cannula O2 Flow Rate 2.00 Capillary Refill : Less Than 3 Seconds I&O Intake and Output 08/08/19 00:00 Intake Total 3910 ml Output Total 2175 ml Balance 1735 ml Intake Oral 700 ml IV Total 3210 ml Output Urine Total 2175 ml General: Alert, Cooperative, Moderate Distress, Other (Confused) HEENT: Atraumatic, PERRLA Neck: Supple, No JVD, No Thyromegaly Lungs: Clear to Auscultation, Normal Air Movement Heart: Normal S1, Normal S2, No Murmurs, Other (Tachycardia) Abdomen: Normal Bowel Sounds, Soft, No Tenderness, No Hepatosplenomegaly, No Masses Extremities: No Clubbing, No Cyanosis, No Edema, Normal Pulses, No Tenderness/Swelling Skin: No Rashes, No Breakdown, No Significant Lesion Neuro: Normal Speech, Strength at 5/5 X4 Ext, Normal Tone, Sensation Intact Psych/Mental Status: Mood NL, Other (Confused) Results Lab Laboratory Tests 08/08/19 03:09 A/P-Cardiology Admission Diagnosis Acute change in mental status Hypertensive emergency Urinary tract infection Diabetes mellitus Assessment/Plan Acute change in mental status, encephalopathy, CT scan initially was negative. Managed by primary care team Labile hypertension with hypertensive emergency, elevated blood pressure at this time, multiple medication including clonidine 0.2 mg 3 times a day, Norvasc 10 mg daily, metoprolol 100 mg twice a day, hydrochlorothiazide 25 mg and hydralazine. Had few episode of hypotension in the 80s last night, currently hypertensive, I will give additional Lopressor IV Workup for secondary hypertension was initiated, results are pending Hypokalemia, hypomagnesemia, being replaced, continue to monitor UTI, receiving antibiotic, managed by primary care team History of CVA and TIA, baseline some degree of confusion Diabetes mellitus, followed and managed by primary care physician Clinical Quality Measures DVT/VTE Risk/Contraindication: Risk Factor Score Per Nursin RFS Level Per Nursing on Admit: 4+=Very High ROSIE RAMOS MD Aug 08, 2019 07:10
[2019-08-08] MEDS ORDERED: meTOprolol 5 MG/5 ML (LOPRESSOR) VIAL IV NR (07:15)
[2019-08-08] MEDS ORDERED: meTOprolol 5 MG/5 ML (LOPRESSOR) VIAL ONE (07:17)
[2019-08-08] MEDS: HYDROCHLOROTHIAZIDE 25 MG (HCTZ) TAB PO SCH (07:32)
[2019-08-08] MEDS: SENNA W/DOCUSATE (SENOKOT S) TABLET PO SCH ×2 (07:32→21:56)
[2019-08-08] MEDS: amLODIPine 10 MG (NORVASC) TAB PO SCH (07:32)
[2019-08-08] MEDS: cloNIDine 0.2 MG (CATAPRES) TAB PO SCH ×3 (07:32→21:56)
[2019-08-08] MEDS: LOSARTAN 100 MG (COZAAR) TABLET PO SCH (07:32)
[2019-08-08] MEDS: DOCUSATE SODIUM 100 MG (COLACE) CAP PO SCH ×2 (07:32→21:56)
[2019-08-08] MEDS: ceTIRizine 10 MG (ZyrTEC) TAB NON-FORMULARY PO SCH (07:35)
[2019-08-08] MEDS: PATIENT MAY USE OWN MED,SINGLE MED PO SCH (07:35)
--- NOTE | 2019-08-08 09:52 | Occupational Ther Daily Note ---
OT Current Status-Daily Note Subjective Pt lying in bed, dozing. Pt opened eyes and vocalized response when asked how pt was. Pt's in room and discussed previous therapies and function when at home. also stated that nrsg was okay with pt completing minimal exercises in bed but did not want pt to get out of bed due to BP issues. Mental Status/Objective Patient Orientation: Non-Verbal/Aphasic Attachments: Carson Catheter, IV, Telemetry ADL-Treatment Therapy Code Descriptions/Definitions Functional [place] Measure: 0=Not Assessed/NA 4=Minimal Assistance 1=Total Assistance 5=Supervision or Setup 2=Maximal Assistance 6=Modified [place] 3=Moderate Assistance 7=Complete IndependenceSCALE: Activities may be completed with or without assistive devices. 8-Dzugjzmavr-imvbhvx completes the activity by him/herself with no assistance from a helper. 5-Set-up or Clean-up Assistance-helper sets up or cleans up; patient completes activity. [place] assists only prior to or following the activity. 4-Supervision or Touching Assistance-helper provides verbal cues and/or touching/steadying and/or contact guard assistance as patient completes activity. Assistance may be provided throughout the activity or intermittently. 3-Partial/Moderate Assistance-helper does LESS THAN HALF the effort. [place] li fts, holds or supports trunk or limbs, but provides less than half the effort. 2-Substantial/Maximal Assistance-helper does MORE THAN HALF the effort. [place] lifts or holds trunk or limbs and provides more than half the effort. 0-Crnloxafn-xxwuks does ALL the effort. Patient does none of the effort to complete the activity. Or, the assistance of 2 or more helpers is required for the patient to complete the activity. If activity was not attempted, code reason: 7-Patient Refused. 9-Not Applicable-not attempted and the patient did not perform the activity before the current illness, exacerbation or injury. 10-Not Attempted due to Environmental Limitations-(lack of equipment, weather restraints, etc.). 88-Not Attempted due to Medical Conditions or Safety Concerns. Other Treatment Pt able to shrug shoulders and move B elbow flexion to ~45 degrees 2 times during therapy. 1 set 10 reps of B shldr flexion and B shldr horizontal abd/add, PROM. Pt tight at end ranges. Pt demonstrated trace movements for B elbow extension, 1 set 5 reps. Pt fatigues quickly, increase in BP with UE movements. After therapy, pt lying in bed with call light/phone in reach, present in room. All needs met in room. OT Short Term Goals Short Term Goals 1=Demonstrate adherence to instructed precautions during ADL tasks. 2=Patient will verbalize/demonstrate understanding of assistive devices/modifications for ADL. 3=Patient will improve strength/tolerance for activity to enable patient to perform ADL's. OT Cupola Liner Goals Assisted Goals Time Frame: Aug 18, 2019 Eating (QC): 6 Oral Hygiene (QC): 5 Shower/Bathe Self (QC): 4 Upper Body Dressing (QC): 5 Lower Body Dressing (QC): 4 Toileting Hygiene (QC): 5 Toilet/Commode Transfer (QC): 5 Additional Goals: 1-Demonstrate ADL Tasks, 2-Verbalize Understanding, 3- ImproveStrength/Shiv 1=Demonstrate adherence to instructed precautions during ADL tasks. 2=Patient will verbalize/demonstrate understanding of assistive devices/modifications for ADL. 3=Patient will improve strength/tolerance for activity to enable patient to perform ADL's. OT Education/Plan Problem List/Assessment Assessment: Decreased Activ Tolerance, Decreased UE Strength, Impaired Bed Mobility, Impaired Coordination, Impaired Funct Balance, Impaired I ADL's, Impaired Self-Care Skills, Restricted Funct UE ROM Pt to benefit from skilled OT intervention for ADL training, transfers, strengthening, and safety education to increase level of independence and allow safe discharge plan. Discharge Recommendations Plan/Recommendations: Continue POC Treatment Plan/Plan of Care Patient would benefit from OT for education, treatment and training to promote independence in ADL's, mobility, safety and/or upper extremity function for ADL's. Plan of Care: ADL Retraining, Functional Mobility, UE Funct Exercise/Act, UE Neuromus Re-Ed/Coord Treatment Duration: Aug 18, 2019 Frequency: 5 times per week Estimated Hrs Per Day: .25 hour per day Agreement: Yes Rehab Potential: Fair Time/GCodes Start Time: 09:15 Stop Time: 09:38 Total Time Billed (hr/min): 23 Billed Treatment Time 1 visit-FA 1 (8 min) EX 1 (15 min) JORGE TERRY Aug 08, 2019 09:52
--- NOTE | 2019-08-08 10:49 | Physical Therapy Daily Note ---
PT Daily Note-Current Subjective Patient is very lethargic and confused. Spouse agrees to PT. Mental Status Patient Orientation: Confused, Listless Transfers SCALE: Activities may be completed with or without assistive devices. 5-Rfdocpsrrq-bpvavpj completes the activity by him/herself with no assistance from a helper. 5-Set-up or Clean-up Assistance-helper sets up or cleans up; patient completes activity. [place] assists only prior to or following the activity. 4-Supervision or Touching Assistance-helper provides verbal cues and/or touching/steadying and/or contact guard assistance as patient completes activity. Assistance may be provided throughout the activity or intermittently. 3-Partial/Moderate Assistance-helper does LESS THAN HALF the effort. [place] lifts, holds or supports trunk or limbs, but provides less than half the effort. 2-Substantial/Maximal Assistance-helper does MORE THAN HALF the effort. [place] lifts or holds trunk or limbs and provides more than half the effort. 3-Chbvodskk-blzids does ALL the effort. Patient does none of the effort to complete the activity. Or, the assistance of 2 or more helpers is required for the patient to complete the activity. If activity was not attempted, code reason: 7-Patient Refused. 9-Not Applicable-not attempted and the patient did not perform the activity before the current illness, exacerbation or injury. 10-Not Attempted due to Environmental Limitations-(lack of equipment, weather restraints, etc.). 88-Not Attempted due to Medical Conditions or Safety Concerns. Weight Bearing Right Lower Extremity: Right Weight Bearing/Tolerated Left Lower Extremity: Left Weight Bearing/Tolerated Exercises Supine Ex: Ankle pumps, Heel Slides, Straight leg raise, Hip abd/add Supine Reps: 15 (2 sets AAROM) Assessment Per RN, patient is not go perform OOB activity due to elevated BP. Patient tolerated minimal activity. PT Shoe Caser Goals [facility] Goals PT [facility] Goals Time Frame: Aug 26, 2019 Sit to Lying (QC): 4 Lying-Sitting on Side/Bed(QC): 4 Sit to Stand (QC): 4 Roll Left to Right (QC): 4 Chair/Vgr-sm-Rjrne Xfer(QC): 4 Car Transfer (QC): 4 Does the Patient Walk: Yes Distance: 75' Walk 10 feet (QC): 4 Walk 10ft-Uneven Surface(QC): 4 Walk 50ft with 2 Turns (QC): 4 Walk 150 ft (QC): 9 Gait Assistive Device: FWW PT Plan Treatment/Plan Treatment Plan: Continue Plan of Care Treatment Plan: Bed Mobility, Education, Functional Activity Shiv, Functional Strength, Gait, Safety, Therapeutic Exercise, Transfers Treatment Duration: Aug 26, 2019 Frequency: 6 times per week Estimated Hrs Per Day: .25 hour per day Patient and/or Family Agrees t: Yes Time/GCodes Time In: 1001 Time Out: 1010 Total Billed Treatment Time: 9 Total Billed Treatment 1 visit EX 9 min SOPHIA ROSARIO PT Aug 08, 2019 10:49
[2019-08-08] MEDS ORDERED: WATER (STERILE) FOR INJECTION 10 ML ONE (11:07)
[2019-08-08] MEDS ORDERED: cefTRIAXone 1,000 MG IV (ROCEPHIN) VIAL ONE (11:07)
[2019-08-08] MEDS: cefTRIAXone FOR IV USE 1,000 MG in WATER (STERILE) FOR INJECTION 10 ML IV SCH (11:11)
[2019-08-08] MEDS: meTOprolol TARTRATE 50 MG (LOPRESSOR) TAB PO SCH ×2 (11:11→21:56)
--- NOTE | 2019-08-08 12:23 | Diagnostic Imaging Report ---
PROCEDURE: MR imaging of the brain without contrast. TECHNIQUE: Multiplanar, multisequence MR imaging of the brain was performed without contrast. INDICATION: Altered mental status. FINDINGS: The previous MRI brain exam performed on 09/24/2018 noted background features of underlying multiple sclerosis. However, there also appear to be areas of abnormal signal in the left thalamus and left orozco radiata. These are felt to be more likely due to acute/subacute non-hemorrhagic infarcts as opposed to active demyelination. The recent CT head exam of 08/06/2019 failed to show any sign of an acute intracranial abnormality. On the diffusion series of this exam, there are again areas of increased signal in the left thalamus and near the jackson-white junction of the left parietal lobe at the level of the lateral ventricles. There are corresponding areas of diminished signal on the ADC series of this exam, and most likely these findings represent recurrent acute/subacute non-hemorrhagic infarcts. There is no sign of hemorrhage on the T1 series. There is no mass or shift of the midline, and there is no extra-axial fluid collection identified. The ventricles are stable in size when compared to the prior exam. The areas of abnormal signal in the periventricular white matter seen on the FLAIR series of the prior exam are again evident and do not appear to have changed significantly. The FLAIR series of this exam, however, is less than optimal due to motion artifact. The sella is not enlarged, and the expected carotid flow voids are evident bilaterally. The orbits are symmetrical and within normal limits. The sinuses are generally clear. The right maxillary antrum is obscured by artifact, however. The seventh and eighth nerve complexes are unremarkable. IMPRESSION: 1. The findings do indicate recurrent acute/subacute non-hemorrhagic infarct in the left thalamus and left parietal lobe. There is no mass or hemorrhage identified. 2. The areas of abnormal signal involving the periventricular white matter seen on the FLAIR series of the prior study do not appear to have changed significantly. These could be secondary to demyelinating disease. 3. These results were called to Dr. Mcneal. CRITICAL FINDING Dictated by: Dictated on workstation # [id number]
[2019-08-08] MEDS: hydrALAZINE (APESOLINE) 20 MG/ML VIAL IV PRN (12:32)
--- NOTE | 2019-08-08 13:18 | Progress Note - Hospitalist ---
Subjective HPI/CC On Admission Date Seen by Provider: Aug 08, 2019 Time Seen by Provider: 07:30 altered mental status Subjective/Events-last exam Pt awake and able to communicate via shaking and nodding head. Seems appropriate in her response. Appears to have difficulty with word finding. I discussed patient's current status with her at length this morning. Focused Exam Lactate Level 08/06/19 19:00: Lactic Acid Level 3.15*H 08/06/19 21:00: Lactic Acid Level 2.53*H 08/07/19 03:25: Lactic Acid Level 1.16 Objective Exam Vital Signs Vital Signs Date Time Temp Pulse Resp B/P (MAP) Pulse Ox O2 Delivery O2 Flow Rate FiO2 08/08/19 11:32 37.0 08/08/19 11:00 93 15 130/78 (95) 98 Nasal Cannula 2.00 Capillary Refill : Less Than 3 Seconds General Appearance: No Apparent Distress, Chronically ill Respiratory: Lungs Clear, No Respiratory Distress Cardiovascular: Regular Rate, Rhythm, No Murmur Gastrointestinal: Normal Bowel Sounds, Soft Neurologic/Psychiatric: Alert, Depressed Affect Results/Procedures Lab Laboratory Tests 08/08/19 03:09 Patient resulted labs reviewed. Assessment/Plan Assessment and Plan Assess & Plan/Chief Complaint Hypertensive emergency Acute encephalopathy -labile BP Current antihypertensive regimen is Losartan, Metoprolol, Amlodipine, HCTZ, clonidine -Continued aphasia (appears to be more aphasia than true disorientation) CT head without acute abnormalities MRI ordered -Monitor on telemetry -TSH and T4 normal -Plasma metanephrines pending -Renin/Gabe ratio pending -Renal artery ultrasound ordered- discussed with radiology about need for usg -Consider sleep study as outpatient Urinary tract infection due to Aerococcus Remains afebrile without leukocytosis UA consistent with UTI Urine culture positive for Aerococcus Continue Ceftriaxone, completes tomorrow Remains disoriented, possible underlying dementia playing a role HAGMA- resolved Acute kidney injury- resolved Cr stable this morning Continue to monitor Hypokalemia Hypomagnesemia Continue to monitor and replace as needed Type II diabetes mellitus A1C 7.8% Levemir 30 units nightly Novolog 5 units with meals Hold glyburide Increase sliding scale insulin DVT prophylaxis: SCDs, ambulation Diagnosis/Problems Diagnosis/Problems (1) HTN (hypertension) Status: Acute (2) UTI (urinary tract infection) Status: Acute Qualifiers: Urinary tract infection type: acute cystitis Hematuria presence: without hematuria Qualified Codes: N30.00 - Acute cystitis without hematuria (3) Hypokalemia Status: Acute (4) Hypomagnesemia Status: Acute (5) AMS (altered mental status) Status: Acute Qualifiers: Altered mental status type: unspecified Qualified Codes: R41.82 - Altered mental status, unspecified (6) Generalized weakness Status: Acute (7) Insulin dependent diabetes mellitus Status: Chronic (8) Hypertensive emergency (9) Multiple sclerosis Status: Chronic Clinical Quality Measures DVT/VTE Risk/Contraindication: Risk Factor Score Per Nursin RFS Level Per Nursing on Admit: 4+=Very High NATI GARCIA MD Aug 08, 2019 13:18
--- NOTE | 2019-08-08 15:47 | ST Dysphagia Evaluation ---
Speech Evaluation-General Medical Diagnosis UTI/AMS/weakness Onset Date: Aug 03, 2019 Therapy Diagnosis Therapy Diagnosis: Oropharyngeal Dysphagia Precautions Precautions: Fall, Aspiration Precautions/Isolations: Aspiration, Fall Prevention, Standard Precautions Referral Referring Physician: Dr. Mcneal Reason for Referral: Evaluation/Treatment Medical History Pertinent Medical History: Atrial Fib, CVA, DM, HTN, Neuropathy A-Fib, CVA, DM, HTN, Neuropathy Current History UTI/AMS/weakness Reviewed History: Yes Social History Home: Single Level Current Living Status: Spouse Speech PLF/Current-Dysphagia Prior Level of Function Patient lived at home with her . She has required assistance with her daily needs for approximately the past year. Subjective Patient was cooperative with the Bedside Dysphagia Evaluation. She responds with yes/no primarily. Speech production is slow and difficult for her due to her ongoing non hemorrhagic strokes. Oral Motor Skills Dentition: Natural Ability to Follow Directions: Fair Patient has been on puree for meds and thin liquids pending Bedside Dysphagia Evaluation. Oral Expression Ability: Moderate Impairment Voice Voice Phonatory-Based Quality: Weak Voice Loudness: Severely Soft/Quiet Face Facial Symmetry: Symmetrical Oral-Facial Assessment Oral-Facial Dentition: Normal Labial Seal Description: Reduced ROM, Weak, Poor Coordination Smile: Reduced ROM, Poor Coordination Lingual Protrusion: Abnormal Significant delay Lingual ROM: Abnormal Significant decrease Lingual Strength: Normal Significant decrease Pharynx Velopharyngeal Move.: Weak bilaterally Volitional Dry Swallow: Yes Voluntary Cough: Yes Can Clear Throat Volitionally: Yes Productive Cough: No Productive Throat Clear: No Dysphagia Evaluation Consistencies Presented: Thin Liquid, Mechanical Soft, Pureed Oral Phase: Reduced Oral Transit with mechanical soft texture Funct. Velo/Pharyngeal Symptom: Cough After Swallow with mechanical soft Dietary Recommendations: Pureed Liquid Recommendations: Thin Swallowing Precautions: Alternate Liquids/Solids, Decreased Bolus 1/2 Tsp, L iquids from Straw, Liquids from Spoon, Oral Supervision Staff, Small Bites and Sips, Sitting Upright 90 Degrees, Sitting 90 Degrees 30 Post Intake Dysphagia Evaluation Summary Patient is known to the this clinician due to being on the inpatient unit for a lengthy stay approximately a year ago. Patient had difficulty at that time with her safe intake. She was began on a puree and eventually moved to regular consistency prior to discharge. The patient has currently been hospitalized for several days. Nursing reports the patient has had multiple non hemorrhagic strokes. Her speech is very delayed with primary skill at the yes/no and one word communication level. She completed the Bedside Dysphagia Evaluation this afternoon per physician order. She was given trials of thin at 1/2 tsp x2 without difficulty. She also took small sips via straw x2 without difficulty. She took 1/2 tsp of puree without difficulty as well. She was given 1/2 tsp of mechanical soft with good oral clearance. She was noted to cough with a significant delay post swallow of the mechanical soft. At this time she will be on a Dysphagia I diet level of puree and thin liquids. She is recommended to have supervision with all intake. Patient will receive skilled ST services for dysphagia. Barriers to Learning Patient has had multiple non hemorrhagic strokes during this hospitalization. Speech Short Term Goals Short Term Goals Short Term Goals 1) Patient will tolerate least restrictive diet level without s/s of aspiration at 90% or greater. 2) Patient/caregivers will utilize compensatory strategies as trained for safe oral intake at 90% or greater given 10% cues. 3) Patient will demonstrate speech production for expressing wants/needs at 80% or greater independently. Speech Sew On Operator Goals Mcfp Goals 1) Patient will maintain adequate nutrition/hydration via safe effective swallow function. 2) Patient will be able to effectively communicate verbally with listeners. Speech-Plan Patient/Family Goals Patient/Family Goals: Patient's plans upon discharge are unknown at this time. Treatment Plan Speech Therapy Treatment Plan: Continue Plan of Care Patient will receive skilled ST services. Treatment Duration: Aug 16, 2019 Frequency: 5 times per week Estimated Hrs Per Day: .25 hour per day Rehab Potential: Fair Barriers to Learning: Patient is having non hemorrhage strokes. Pt/Family Agrees to Plan: Yes Safety Risks/Education Teaching Recipient: Patient Teaching Methods: Discussion Response to Teaching: Verbalize Understanding, Reinforcement Needed Education Topics Provided: Safety of oral intake and diet level. Time Speech Therapy Time In: 15:00 Speech Therapy Time Out: 15:30 Total Billed Time: 30 Billed Treatment Time 1PAULETT[address] Aug 08, 2019 15:47
--- NOTE | 2019-08-08 15:59 | NUR ---
Health Commissioner follow up: Pt and her are Christians and demonstrate appreciation for thread separator support. Offered soothing touch for pt and active listening as pt's shared that they have received excellent care and attention from staff during this time of emotional and physical vulnerability.
[2019-08-08] MEDS: LACTATED RINGERS 1,000 ML IV SCH (18:57)
[2019-08-09] VITALS (10 sets, daily range): BP systolic 102–171; BP diastolic 58–94
[2019-08-09] MEDS: LACTATED RINGERS 1,000 ML IV SCH (03:27)
[2019-08-09 03:45] LABS: BASOPHILS % (AUTO) 0 % (0-10); EOSINOPHILS # (AUTO) 0.2 10^3/uL (0.0-0.3); EOSINOPHILS % (AUTO) 3 % (0-10); HEMATOCRIT 37 % (35-52); HEMOGLOBIN 12.4 G/DL (11.5-16.0); LYMPHOCYTES # (AUTO) 2.1 X 10^3 (1.0-4.0); LYMPHOCYTES % (AUTO) 29 % (12-44); MEAN CORPUSCULAR HEMOGLOBIN 30 PG (25-34); MEAN CORPUSCULAR HGB CONC 34 G/DL (32-36); MEAN CORPUSCULAR VOLUME 88 FL (80-99); MEAN PLATELET VOLUME 11.7 FL (7.4-10.4); MONOCYTES # (AUTO) 0.8 X 10^3 (0.0-1.0); MONOCYTES % (AUTO) 11 % (0-12); NEUTROPHILS % (AUTO) 57 % (42-75); PLATELET COUNT 218 10^3/uL (130-400); RED CELL DISTRIBUTION WIDTH 15.7 % (10.0-14.5); WHITE BLOOD COUNT 7.1 10^3/uL (4.3-11.0)
[2019-08-09 04:09] LABS: CALCIUM 9.2 MG/DL (8.5-10.1); CREATININE SERUM 0.96 MG/DL (0.60-1.30); MAGNESIUM 1.7 MG/DL (1.6-2.4); PHOSPHORUS 3.3 MG/DL (2.3-4.7); POTASSIUM 3.4 MMOL/L (3.6-5.0)
[2019-08-09] MEDS: POTASSIUM CL 10MEQ/50ML IVPB 50 ML IV SCH ×7 (04:52→11:39)
[2019-08-09] MEDS: MAGNESIUM 1 GM/100 ML IVPB 100 ML IV SCH ×3 (04:52→06:53)
[2019-08-09] MEDS: KCL 20 MEQ TAB (K-DUR) PO SCH (04:53)
[2019-08-09] MEDS: inSUlin ASPART (NovoLOG) 1 UNIT/0.01 ML (CHARGE PER UNIT) SC SCH ×6 (05:38→21:58)
--- NOTE | 2019-08-09 06:16 | Pulmonary Progress Note ---
Subjective Time Seen by a Provider: 06:15 Subjective/Events-last exam BP improved Sepsis Event Evaluation Height, Weight, BMI Height: 5'4.00" Weight: 119lbs. 0.0oz. [id number]; 22.35 BMI Method:Stated Focused Exam Lactate Level 08/06/19 19:00: Lactic Acid Level 3.15*H 08/06/19 21:00: Lactic Acid Level 2.53*H 08/07/19 03:25: Lactic Acid Level 1.16 Exam Exam Vital Signs Date Time Temp Pulse Resp B/P (MAP) Pulse Ox O2 Delivery O2 Flow Rate FiO2 08/09/19 04:00 73 17 102/62 (75) 97 Room Air 08/09/19 03:27 36.7 08/09/19 03:00 74 25 136/81 (99) 96 Room Air 08/09/19 02:00 72 21 129/80 (96) 97 Room Air 08/09/19 01:00 75 27 171/91 (117) 97 Room Air 08/09/19 01:00 75 08/09/19 00:00 80 25 149/79 (102) 97 Room Air 08/09/19 00:00 36.0 08/08/19 23:15 84 24 131/76 (94) 96 Room Air 08/08/19 23:00 85 178/95 (122) 97 Room Air 08/08/19 22:30 88 137/75 (95) 97 Room Air 08/08/19 22:00 93 15 184/95 (124) Room Air 08/08/19 21:00 92 9 176/93 (120) Room Air 08/08/19 20:00 98 Room Air 08/08/19 20:00 89 14 143/77 (99) Room Air 08/08/19 20:00 37.0 08/08/19 20:00 37.8 08/08/19 19:00 86 08/08/19 19:00 86 9 163/89 (113) Room Air 08/08/19 18:00 85 12 162/89 (113) Nasal Cannula 2.00 08/08/19 17:00 77 13 136/72 (93) Nasal Cannula 2.00 08/08/19 16:00 75 15 119/65 (83) Nasal Cannula 2.00 08/08/19 15:43 36.6 08/08/19 15:00 76 15 117/74 (88) Nasal Cannula 2.00 08/08/19 14:00 79 11 135/76 (95) Nasal Cannula 2.00 08/08/19 13:00 84 08/08/19 13:00 85 17 157/82 (107) Nasal Cannula 2.00 08/08/19 12:15 84 10 198/126 (150) Nasal Cannula 2.00 08/08/19 11:32 37.0 08/08/19 11:00 93 15 130/78 (95) 98 Nasal Cannula 2.00 08/08/19 10:00 98 15 135/85 (102) 97 Nasal Cannula 2.00 08/08/19 09:00 96 20 173/124 (140) 96 Nasal Cannula 2.00 08/08/19 08:09 37.5 08/08/19 08:00 98 Room Air 08/08/19 08:00 96 18 216/93 (134) 97 Nasal Cannula 2.00 08/08/19 07:00 112 13 222/119 (153) 96 Nasal Cannula 2.00 08/08/19 07:00 108 I & O 08/09/19 07:00 Intake Total 960 ml Output Total 1500 ml Balance -540 ml Height & Weight Height: 5'4.00" Weight: 119lbs. 0.0oz. [id number]; 22.35 BMI Method:Stated General Appearance: No Apparent Distress, Chronically ill HEENT: PERRL/EOMI, Pharynx Normal, Moist Mucous Membranes Neck: Normal Inspection, Non Tender, Supple Respiratory: Lungs Clear, No Respiratory Distress Cardiovascular: Regular Rate, Rhythm, No Murmur Capillary Refill: Less Than 3 Seconds Extremity: No Calf Tenderness Neurologic/Psychiatric: Alert, Depressed Affect Skin: Normal Color, Warm/Dry Lymphatic: No Adenopathy Results Lab Laboratory Tests 08/08/19 03:09 08/09/19 03:30 Assessment/Plan Assessment/Plan HTN emergency - improved -Clonidine, losartan PO Lopressor - HCTZ, and norvasc -Hydralazine IV PRN for SBP >160 -Continue to monitor BP -HTN workup per hospitalist pending Metabolic encephalopathy with probable chronic dementia -MRI brain reviewed Hypokalemia -replace UTI -Continue Rocephin -Await cultures Probable YAMILKA -Will plan for out pt PSG NIDDM II ADI,ROSSI M DO Aug 09, 2019 06:16
--- NOTE | 2019-08-09 08:47 | Diagnostic Imaging Report ---
INDICATION: Dyspnea. TECHNIQUE: Frontal view of the chest. COMPARISON: 08/07/2019 FINDINGS: Lung volumes are normal. No focal consolidation is seen. The cardiac silhouette is normal in size. The interstitial prominence and central vascular congestion appear improved compared to the prior exam. No pleural effusion or pneumothorax is seen. IMPRESSION: 1. Interstitial prominence and central congestion appear improved compared to the prior study. No focal consolidation is seen. Dictated by: Dictated on workstation # [id number]
--- NOTE | 2019-08-09 09:18 | Diagnostic Imaging Report ---
INDICATION: Dyspnea. COMPARISON: 08/08/2019 TECHNIQUE: Single radiograph of the chest dated 08/09/2019 FINDINGS: Mild patient rotation is noted. The cardiac silhouette and pulmonary vasculature appear to be within normal limits. The lungs remain clear. No significant pleural effusion or pneumothorax. Osseous structures are stable. IMPRESSION: Similar exam without acute cardiopulmonary abnormality. Dictated by: Dictated on workstation # [id number]
[2019-08-09] MEDS: cefTRIAXone FOR IV USE 1,000 MG in WATER (STERILE) FOR INJECTION 10 ML IV SCH (09:24)
[2019-08-09] MEDS: DOCUSATE SODIUM 100 MG (COLACE) CAP PO SCH ×2 (09:25→23:14)
[2019-08-09] MEDS: HYDROCHLOROTHIAZIDE 25 MG (HCTZ) TAB PO SCH (09:25)
[2019-08-09] MEDS: SENNA W/DOCUSATE (SENOKOT S) TABLET PO SCH ×2 (09:25→23:14)
[2019-08-09] MEDS: LOSARTAN 100 MG (COZAAR) TABLET PO SCH (09:25)
[2019-08-09] MEDS: cloNIDine 0.2 MG (CATAPRES) TAB PO SCH ×3 (09:25→21:58)
[2019-08-09] MEDS: amLODIPine 10 MG (NORVASC) TAB PO SCH (09:25)
[2019-08-09] MEDS: meTOprolol TARTRATE 50 MG (LOPRESSOR) TAB PO SCH ×2 (09:25→21:58)
[2019-08-09] MEDS: ceTIRizine 10 MG (ZyrTEC) TAB NON-FORMULARY PO SCH (09:26)
[2019-08-09] MEDS: PATIENT MAY USE OWN MED,SINGLE MED PO SCH (09:27)
--- NOTE | 2019-08-09 10:21 | Cardiology Progress Note ---
Subjective Date Seen by Provider: Aug 09, 2019 Time Seen by Provider: 10:18 Subjective/Events-last exam Patient is sitting up in bed, continues to have aphasia. Denies any chest pain at this time. Focused Exam Lactate Level 08/06/19 19:00: Lactic Acid Level 3.15*H 08/06/19 21:00: Lactic Acid Level 2.53*H 08/07/19 03:25: Lactic Acid Level 1.16 Objective-Cardiology Exam Last Set of Vital Signs Vital Signs 08/08/19 08/09/19 08/09/19 08/09/19 18:00 03:27 04:00 06:06 Temp 36.7 Pulse 79 Resp 17 B/P (MAP) 141/94 (110) Pulse Ox 96 O2 Delivery Room Air O2 Flow Rate 2.00 Capillary Refill : Less Than 3 Seconds I&O Intake and Output 08/09/19 00:00 Intake Total 1100 ml Output Total 2600 ml Balance -1500 ml Intake Oral 600 ml IV Total 500 ml Output Urine Total 2600 ml # Bowel Movements 1 General: Alert, Cooperative, Moderate Distress, Other (Confused) HEENT: Atraumatic, PERRLA Neck: Supple, No JVD, No Thyromegaly Lungs: Clear to Auscultation, Normal Air Movement Heart: Regular Rate, Normal S1, Normal S2, No Murmurs Abdomen: Normal Bowel Sounds, Soft, No Tenderness, No Hepatosplenomegaly, No Masses Extremities: No Clubbing, No Cyanosis, No Edema, Normal Pulses, No Tenderness/Swelling Skin: No Rashes, No Breakdown, No Significant Lesion Neuro: Strength at 5/5 X4 Ext, Normal Tone, Sensation Intact, Other (aphasia) Psych/Mental Status: Mood NL Results Lab Laboratory Tests 08/09/19 03:30 A/P-Cardiology Admission Diagnosis Acute change in mental status Hypertensive emergency Urinary tract infection Diabetes mellitus Assessment/Plan Acute change in mental status, encephalopathy, CT scan initially was negative. MRI brain done yesterday revealed recurrent acute/subacute non-hemorrhagic infarct in the left thalamus and left parietal lobe. There is no mass or hemorrhage identified. Labile hypertension with hypertensive emergency, elevated blood pressure at this time, multiple medication including clonidine 0.2 mg 3 times a day, Norvasc 10 mg daily, metoprolol 100 mg twice a day, hydrochlorothiazide 25 mg and hydralazine. Continue to monitor. Workup for secondary hypertension was initiated, results are pending Hypokalemia, hypomagnesemia, being replaced, continue to monitor UTI, receiving antibiotic, managed by primary care team History of CVA and TIA, baseline some degree of confusion, reports patient with increased aphasia on this admission Diabetes mellitus, followed and managed by primary care physician Clinical Quality Measures DVT/VTE Risk/Contraindication: Risk Factor Score Per Nursin RFS Level Per Nursing on Admit: 4+=Very High CASSIE WHITE Aug 09, 2019 10:21
--- NOTE | 2019-08-09 10:23 | Cardiology Progress Note ---
Subjective Date Seen by Provider: Aug 09, 2019 Time Seen by Provider: 10:17 Subjective/Events-last exam patient is laying down in bed, more awake today, having slurred speech, still having residual weakness on the left side Review of Systems General: No Chills, No Night Sweats; Fatigue, Malaise; No Appetite, No Other HEENT: No Head Aches, No Visual Changes, No Eye Pain, No Ear Pain, No Dysphasia, No Sinus Congestion, No Post Nasal Drip, No Sore Throat, No Other Pulmonary: No Dyspnea, No Cough, No Pleuritic Chest Pain, No Other Cardiovascular: No: Chest Pain, Palpitations, Orthopnea, Paroxysmal Noc. Dyspnea, Edema, Lt Headedness, Other Focused Exam Lactate Level 08/06/19 19:00: Lactic Acid Level 3.15*H 08/06/19 21:00: Lactic Acid Level 2.53*H 08/07/19 03:25: Lactic Acid Level 1.16 Objective-Cardiology Exam Last Set of Vital Signs Vital Signs 08/08/19 08/09/19 08/09/19 08/09/19 18:00 03:27 04:00 06:06 Temp 36.7 Pulse 79 Resp 17 B/P (MAP) 141/94 (110) Pulse Ox 96 O2 Delivery Room Air O2 Flow Rate 2.00 Capillary Refill : Less Than 3 Seconds I&O Intake and Output 08/09/19 00:00 Intake Total 1100 ml Output Total 2600 ml Balance -1500 ml Intake Oral 600 ml IV Total 500 ml Output Urine Total 2600 ml # Bowel Movements 1 General: Alert, Oriented X3, Cooperative, No Acute Distress, Other (Confused) HEENT: Atraumatic, PERRLA Neck: Supple, No JVD, No Thyromegaly Lungs: Clear to Auscultation, Normal Air Movement Heart: Normal S1, Normal S2, No Murmurs, Other (Tachycardia) Abdomen: Normal Bowel Sounds, Soft, No Tenderness, No Hepatosplenomegaly, No Masses Extremities: No Clubbing, No Cyanosis, No Edema, Normal Pulses, No Tenderness/Swelling Skin: No Rashes, No Breakdown, No Significant Lesion Neuro: Normal Tone, Sensation Intact, Other (Slurred speech and weakness on the left side) Psych/Mental Status: Mood NL, Other (Confused) Results Lab Laboratory Tests 08/09/19 03:30 A/P-Cardiology Admission Diagnosis Acute change in mental status Hypertensive emergency Urinary tract infection Diabetes mellitus Assessment/Plan Acute change in mental status, recurrent CVA with thalamic infarction, had extensive neurologic history with history of CVA and TIA in the past with residual left-sided weakness, last year had workup for multiple sclerosis and aspirin reported that the workup was negative, had multiple hospitalization with change in mental status due to electrolyte imbalance. Her MRI on this admission is showing a new thalamic infarction. Managed by primary care physician, recommend starting aspirin and Plavix Labile hypertension with hypertensive emergency, better blood pressure control at this time Workup for secondary hypertension was initiated, results are pending Hypokalemia, hypomagnesemia, being replaced, continue to monitor UTI, receiving antibiotic, managed by primary care team History of CVA and TIA, baseline some degree of confusion Diabetes mellitus, followed and managed by primary care physician Clinical Quality Measures DVT/VTE Risk/Contraindication: Risk Factor Score Per Nursin RFS Level Per Nursing on Admit: 4+=Very High ROSIE RAMOS MD Aug 09, 2019 10:23
--- NOTE | 2019-08-09 10:45 | Progress Note - Hospitalist ---
Subjective HPI/CC On Admission Date Seen by Provider: Aug 09, 2019 Time Seen by Provider: 10:40 altered mental status Subjective/Events-last exam Pt more awake today but still with expressive aphasia. at bedside and states had a good night. Discussed results of MRI which reveal acute/subacute stroke. Focused Exam Lactate Level 08/06/19 19:00: Lactic Acid Level 3.15*H 08/06/19 21:00: Lactic Acid Level 2.53*H 08/07/19 03:25: Lactic Acid Level 1.16 Objective Exam Vital Signs Vital Signs Date Time Temp Pulse Resp B/P (MAP) Pulse Ox O2 Delivery O2 Flow Rate FiO2 08/09/19 06:06 79 141/94 (110) 96 Room Air 08/09/19 04:00 17 08/09/19 03:27 36.7 08/08/19 23:15 Capillary Refill : Less Than 3 Seconds General Appearance: No Apparent Distress, Chronically ill Respiratory: Lungs Clear, No Accessory Muscle Use, No Respiratory Distress Cardiovascular: Regular Rate, Rhythm, No Murmur Gastrointestinal: Normal Bowel Sounds, Non Tender, Soft Neurologic/Psychiatric: Alert, Aphasia, Depressed Affect Results/Procedures Lab Laboratory Tests 08/09/19 03:30 Patient resulted labs reviewed. Assessment/Plan Assessment and Plan Assess & Plan/Chief Complaint Hypertensive emergency Acute encephalopathy -labile BP- improved control today Current antihypertensive regimen is Losartan, Metoprolol, Amlodipine, HCTZ, clonidine -Monitor on telemetry -TSH and T4 normal -Plasma metanephrines pending -Renin/Gabe ratio pending -Renal artery ultrasound ordered- discussed with radiology about need for usg -Consider sleep study as outpatient Acute/Subacute Parietal and Thalamus Infarct - ST/OT/PT - ASA/Plavix/Statin - Cardiology consulted, appreciate recs - IRU consult Urinary tract infection due to Aerococcus Remains afebrile without leukocytosis UA consistent with UTI Urine culture positive for Aerococcus -Complete Ceftriaxone Remains disoriented, possible underlying vascular dementia playing a role HAGMA- resolved Acute kidney injury- resolved Cr stable this morning Continue to monitor Hypokalemia Hypomagnesemia Continue to monitor and replace as needed per protocol Type II diabetes mellitus A1C 7.8% Levemir 30 units nightly Novolog 5 units with meals Hold glyburide Increase sliding scale insulin DVT prophylaxis: SCDs, ambulation Diagnosis/Problems Diagnosis/Problems (1) HTN (hypertension) Status: Acute Qualifiers: Hypertension type: essential hypertension Qualified Codes: I10 - Essential (primary) hypertension (2) UTI (urinary tract infection) Status: Acute Qualifiers: Urinary tract infection type: acute cystitis Hematuria presence: without hematuria Qualified Codes: N30.00 - Acute cystitis without hematuria (3) Hypokalemia Status: Acute (4) Hypomagnesemia Status: Acute (5) AMS (altered mental status) Status: Acute Qualifiers: Altered mental status type: unspecified Qualified Codes: R41.82 - Altered mental status, unspecified (6) Generalized weakness Status: Acute (7) Insulin dependent diabetes mellitus Status: Chronic (8) Hypertensive emergency Status: Resolved Resolution Date/Time: 08/09/19 @ 11:07 (9) Multiple sclerosis Status: Chronic (10) Infarction of thalamus Status: Acute (11) Left parietal lobe lesion Status: Acute Clinical Quality Measures DVT/VTE Risk/Contraindication: Risk Factor Score Per Nursin RFS Level Per Nursing on Admit: 4+=Very High NATI GARCIA MD Aug 09, 2019 10:45
--- NOTE | 2019-08-09 11:28 | Physical Therapy Daily Note ---
PT Daily Note-Current Subjective Pt. in bed with at bedside. protective and states pt. is very tired from a full morning of testing that took a long time. Both shake their heads "yes" when invited to participate in exercise. Pain Location: No Pain Reported Appearance eyes open ,solemn, minimal verbalization Mental Status Patient Orientation: Eyes Open, Mumbles, Listless Attachments: [place] Catheter, IV Transfers SCALE: Activities may be completed with or without assistive devices. 5-Fmsdovhamv-iabmdzk completes the activity by him/herself with no assistance from a helper. 5-Set-up or Clean-up Assistance-helper sets up or cleans up; patient completes activity. [place] assists only prior to or following the activity. 4-Supervision or Touching Assistance-helper provides verbal cues and/or touching/steadying and/or contact guard assistance as patient completes activity. Assistance may be provided throughout the activity or intermittently. 3-Partial/Moderate Assistance-helper does LESS THAN HALF the effort. [place] lifts, holds or supports trunk or limbs, but provides less than half the effort. 2-Substantial/Maximal Assistance-helper does MORE THAN HALF the effort. [place] lifts or holds trunk or limbs and provides more than half the effort. 2-Opbsdvfnk-tuhobp does ALL the effort. Patient does none of the effort to complete the activity. Or, the assistance of 2 or more helpers is required for the patient to complete the activity. If activity was not attempted, code reason: 7-Patient Refused. 9-Not Applicable-not attempted and the patient did not perform the activity before the current illness, exacerbation or injury. 10-Not Attempted due to Environmental Limitations-(lack of equipment, weather restraints, etc.). 88-Not Attempted due to Medical Conditions or Safety Concerns. minimal this Rx rolling with mod assist Weight Bearing Right Lower Extremity: Right Weight Bearing/Tolerated Left Lower Extremity: Left Weight Bearing/Tolerated Exercises Supine Ex: Ankle pumps, Quad Set, Rolling, Heel Slides, Short Arc Quads, Straight leg raise (assist), Hip abd/add Supine Reps: 15 (assist needed for all, pt. does understand and initiates movement) Assessment Current Status: Good Progress, Fair Progress pts indicates she is tired and wants only minimal activity PT Alf Goals Alf Goals PT An Employee Sponsor Or Advocate And Goals Time Frame: Aug 26, 2019 Sit to Lying (QC): 4 Lying-Sitting on Side/Bed(QC): 4 Sit to Stand (QC): 4 Roll Left to Right (QC): 4 Chair/Wlo-ys-Uvcfw Xfer(QC): 4 Car Transfer (QC): 4 Does the Patient Walk: Yes Distance: 75' Walk 10 feet (QC): 4 Walk 10ft-Uneven Surface(QC): 4 Walk 50ft with 2 Turns (QC): 4 Walk 150 ft (QC): 9 Gait Assistive Device: FWW PT Plan Treatment/Plan Treatment Plan: Continue Plan of Care Treatment Plan: Bed Mobility, Education, Functional Activity Shiv, Functional Strength, Gait, Safety, Therapeutic Exercise, Transfers Treatment Duration: Aug 26, 2019 Frequency: 6 times per week Estimated Hrs Per Day: .25 hour per day Patient and/or Family Agrees t: Yes Safety Risks/Education Patient Education: Correct Positioning, Disease Process Teaching Recipient: Patient, Family Teaching Methods: Discussion Response to Teaching: Reinforcement Needed Time/GCodes Time In: 1045 Time Out: 1105 Total Billed Treatment Time: 20 Total Billed Treatment 1,EX20m WILLIAM JULIAN STUDIO COORDINATOR Aug 09, 2019 11:27
--- NOTE | 2019-08-09 11:44 | Diagnostic Imaging Report ---
EXAMINATION: Ultrasound renal artery Doppler, bilateral. INDICATION: Resistant hypertension. TECHNIQUE: Spectral and color flow imaging of the kidneys was performed. COMPARISON: There are no prior renal artery Doppler examinations available for comparison. FINDINGS: Both kidneys are identified. The right kidney measures 9.9 x 4.5 x 5.4 cm while the left kidney is estimated to be 10.9 x 5.2 x 5.1 cm. There is no evidence for a solid renal mass or for hydronephrosis of either kidney. The renal cortices are normal in thickness and echogenicity. There is no evidence for a hemodynamically significant stenosis of the renal arteries although the proximal left renal artery is not well visualized. The bladder was not included on this exam. IMPRESSION: 1. There is no evidence for a solid renal mass or for an acute abnormality of either kidney. 2. There is no evidence for renal artery stenosis although the proximal most portion of the left renal artery is not well visualized. 3. The bladder was not included on this exam. Dictated by: Dictated on workstation # [id number]
[2019-08-09] MEDS: ASPIRIN E.C. 81 MG (ECOTRIN) TAB PO SCH (11:58)
[2019-08-09] MEDS: CLOPIDOGREL 75 MG (PLAVIX) TABLET PO SCH (11:58)
--- NOTE | 2019-08-09 13:26 | Occupational Ther Daily Note ---
OT Current Status-Daily Note Subjective Pt dozing in bed, woke to name. Pt's in room. Pt agrees to therapy. Mental Status/Objective Patient Orientation: Person, Place, Situation ADL-Treatment Pt agrees to attempt to sit EOB. When moving pt to sit up EOB, [place] noticed pt was incontinent of bowel. Pt attempts to move arms and legs to assist with rolling side to side. Pt dependent with toileting hygiene, max A for bed mobility. After therapy, pt lying on L side with call light/phone in reach. All needs met in room. Therapy Code Descriptions/Definitions Functional [place] Measure: 0=Not Assessed/NA 4=Minimal Assistance 1=Total Assistance 5=Supervision or Setup 2=Maximal Assistance 6=Modified [place] 3=Moderate Assistance 7=Complete IndependenceSCALE: Activities may be completed with or without assistive devices. 8-Fnzcxaobgj-infpxeh completes the activity by him/herself with no assistance from a helper. 5-Set-up or Clean-up Assistance-helper sets up or cleans up; patient completes activity. [place] assists only prior to or following the activity. 4-Supervision or Touching Assistance-helper provides verbal cues and/or touching/steadying and/or contact guard assistance as patient completes activity. Assistance may be provided throughout the activity or intermittently. 3-Partial/Moderate Assistance-helper does LESS THAN HALF the effort. [place] lifts, holds or supports trunk or limbs, but provides less than half the effort. 2-Substantial/Maximal Assistance-helper does MORE THAN HALF the effort. [place] lifts or holds trunk or limbs and provides more than half the effort. 2-Xnleogalh-mmcqne does ALL the effort. Patient does none of the effort to complete the activity. Or, the assistance of 2 or more helpers is required for the patient to complete the activity. If activity was not attempted, code reason: 7-Patient Refused. 9-Not Applicable-not attempted and the patient did not perform the activity before the current illness, exacerbation or injury. 10-Not Attempted due to Environmental Limitations-(lack of equipment, weather restraints, etc.). 88-Not Attempted due to Medical Conditions or Safety Concerns. OT Short Term Goals Short Term Goals 1=Demonstrate adherence to instructed precautions during ADL tasks. 2=Patient will verbalize/demonstrate understanding of assistive devices/modifications for ADL. 3=Patient will improve strength/tolerance for activity to enable patient to perform ADL's. OT Fpc Goals Grants Officer Goals Time Frame: Aug 18, 2019 Eating (QC): 6 Oral Hygiene (QC): 5 Shower/Bathe Self (QC): 4 Upper Body Dressing (QC): 5 Lower Body Dressing (QC): 4 Toileting Hygiene (QC): 5 Toilet/Commode Transfer (QC): 5 Additional Goals: 1-Demonstrate ADL Tasks, 2-Verbalize Understanding, 3- ImproveStrength/Shiv 1=Demonstrate adherence to instructed precautions during ADL tasks. 2=Patient will verbalize/demonstrate understanding of assistive devices/modifications for ADL. 3=Patient will improve strength/tolerance for activity to enable patient to perform ADL's. OT Education/Plan Problem List/Assessment Assessment: Decreased Activ Tolerance, Decreased UE Strength, Dependent Transfers, Impaired Bed Mobility, Impaired Coordination, Impaired Funct Balance, Impaired I ADL's, Impaired Self-Care Skills Pt to benefit from skilled OT intervention for ADL training, transfers, strengthening, and safety education to increase level of independence and allow safe discharge plan. Discharge Recommendations Plan/Recommendations: Continue POC Treatment Plan/Plan of Care Patient would benefit from OT for education, treatment and training to promote independence in ADL's, mobility, safety and/or upper extremity function for ADL's. Plan of Care: ADL Retraining, Functional Mobility, UE Funct Exercise/Act, UE Neuromus Re-Ed/Coord Treatment Duration: Aug 18, 2019 Frequency: 5 times per week Estimated Hrs Per Day: .25 hour per day Agreement: Yes Rehab Potential: Fair Time/GCodes Start Time: 11:00 Stop Time: 11:45 Total Time Billed (hr/min): 45 Billed Treatment Time 1 visit-ADL 3 (45 min) JORGE TERRY Aug 09, 2019 13:26
--- NOTE | 2019-08-09 15:02 | Speech Therapy Daily Note ---
Speech Daily Progress Note Subjective Date Seen by Provider: Aug 09, 2019 Time Seen by Provider: 00:15 Patient resting in her bed when I entered her room. She was able to speak easier than yesterday. Objective Patient tolerating small sips of water via straw without difficulty with 20% verbal cues. Assessment Assessment Current Status: Good Progress Treatment Plan Continue Plan of Care Speech Short Term Goals Short Term Goals Short Term Goals 1) Patient will tolerate least restrictive diet level without s/s of aspiration at 90% or greater. 2) Patient/caregivers will utilize compensatory strategies as trained for safe oral intake at 90% or greater given 10% cues. 3) Patient will demonstrate speech production for expressing wants/needs at 80% or greater independently. Speech Jail Goals [place]zer Operator Goals 1) Patient will maintain adequate nutrition/hydration via safe effective swallow function. 2) Patient will be able to effectively communicate verbally with listeners. Speech-Plan Patient/Family Goals Patient/Family Goals: Patient plans on returning home, however this has not been determined. Treatment Plan Speech Therapy Treatment Plan: Continue Plan of Care Patient has been moved to the acute floor from ICU. Treatment Duration: Aug 16, 2019 Frequency: 5 times per week Estimated Hrs Per Day: .25 hour per day Rehab Potential: Fair Barriers to Learning: Patient has difficulties secondary to recent CVA. Pt/Family Agrees to Plan: Yes Safety Risks/Education Teaching Recipient: Patient Teaching Methods: Demonstration, Discussion Response to Teaching: Verbalize Understanding, Return Demonstration Education Topics Provided: Safety of oral intake. Time Speech Therapy Time In: 14:45 Speech Therapy Time Out: 15:00 Total Billed Time: 15 Billed Treatment Time 1, HAILE Castillo Aug 09, 2019 15:02
[2019-08-10 03:30] VITALS: BP 138/82
[2019-08-10 06:09] LABS: BASOPHILS % (AUTO) 1 % (0-10); EOSINOPHILS # (AUTO) 0.4 10^3/uL (0.0-0.3); EOSINOPHILS % (AUTO) 5 % (0-10); HEMATOCRIT 37 % (35-52); HEMOGLOBIN 12.3 G/DL (11.5-16.0); LYMPHOCYTES # (AUTO) 2.6 X 10^3 (1.0-4.0); LYMPHOCYTES % (AUTO) 35 % (12-44); MEAN CORPUSCULAR HEMOGLOBIN 29 PG (25-34); MEAN CORPUSCULAR HGB CONC 33 G/DL (32-36); MEAN CORPUSCULAR VOLUME 87 FL (80-99); MEAN PLATELET VOLUME 11.8 FL (7.4-10.4); MONOCYTES # (AUTO) 0.8 X 10^3 (0.0-1.0); MONOCYTES % (AUTO) 11 % (0-12); NEUTROPHILS # (AUTO) 3.5 X 10^3 (1.8-7.8); NEUTROPHILS % (AUTO) 48 % (42-75); PLATELET COUNT 228 10^3/uL (130-400); RED CELL DISTRIBUTION WIDTH 15.4 % (10.0-14.5); WHITE BLOOD COUNT 7.3 10^3/uL (4.3-11.0)
[2019-08-10 06:26] LABS: BUN/CREATININE RATIO 26; CALCIUM 9.3 MG/DL (8.5-10.1); CARBON DIOXIDE 24 MMOL/L (21-32); CHLORIDE 102 MMOL/L (98-107); CREATININE SERUM 0.84 MG/DL (0.60-1.30); GFR ESTIMATED > 60; GLUCOSE 76 MG/DL (70-105); MAGNESIUM 1.6 MG/DL (1.6-2.4); PHOSPHORUS 3.6 MG/DL (2.3-4.7); POTASSIUM 3.1 MMOL/L (3.6-5.0); SODIUM 137 MMOL/L (135-145)
[2019-08-10] MEDS: MAGNESIUM 1 GM/100 ML IVPB 100 ML IV SCH (07:02)
[2019-08-10] MEDS: inSUlin ASPART (NovoLOG) 1 UNIT/0.01 ML (CHARGE PER UNIT) SC SCH ×4 (07:02→21:39)
[2019-08-10] MEDS ORDERED: POTASSIUM CL 10MEQ/50ML IVPB 50 ML IV SCH (07:45)
[2019-08-10] MEDS: POTASSIUM CL 10MEQ/50ML IVPB 50 ML IV SCH (07:53)
[2019-08-10] MEDS: KCL 20 MEQ TAB (K-DUR) PO SCH (08:02)
--- NOTE | 2019-08-10 08:18 | Cardiology Progress Note ---
Subjective Date Seen by Provider: Aug 10, 2019 Time Seen by Provider: 08:16 Subjective/Events-last exam Patient is laying down in bed, still having slurred speech. No new complaint Review of Systems General: No Chills, No Night Sweats, No Fatigue, No Malaise, No Appetite, No Other HEENT: No Head Aches, No Visual Changes, No Eye Pain, No Ear Pain, No Dysphasia, No Sinus Congestion, No Post Nasal Drip, No Sore Throat, No Other Pulmonary: No Dyspnea, No Cough, No Pleuritic Chest Pain, No Other Cardiovascular: No: Chest Pain, Palpitations, Orthopnea, Paroxysmal Noc. Dyspnea, Edema, Lt Headedness, Other Objective-Cardiology Exam Last Set of Vital Signs Vital Signs 08/08/19 08/10/19 08/10/19 18:00 03:30 07:00 Temp 36.9 Pulse 75 Resp 18 B/P (MAP) 138/82 (100) Pulse Ox 97 O2 Delivery Room Air O2 Flow Rate 2.00 Capillary Refill : Less Than 3 Seconds I&O Intake and Output 08/10/19 00:00 Intake Total 2070 ml Output Total 1100 ml Balance 970 ml Intake Oral 600 ml IV Total 1470 ml Output Urine Total 1100 ml # Bowel Movements 1 General: Alert, Oriented X3, Cooperative, No Acute Distress, Other (Confused) HEENT: Atraumatic, PERRLA Neck: Supple, No JVD, No Thyromegaly Lungs: Clear to Auscultation, Normal Air Movement Heart: Regular Rate, Normal S1, Normal S2, No Murmurs Abdomen: Normal Bowel Sounds, Soft, No Tenderness, No Hepatosplenomegaly, No Masses Extremities: No Clubbing, No Cyanosis, No Edema, Normal Pulses, No Tenderness/Swelling Skin: No Rashes, No Breakdown, No Significant Lesion Neuro: Normal Tone, Sensation Intact, Other (Slurred speech and weakness on the left side) Psych/Mental Status: Mood NL Results Lab Laboratory Tests 08/10/19 05:20 A/P-Cardiology Admission Diagnosis Acute change in mental status Hypertensive emergency Urinary tract infection Diabetes mellitus Assessment/Plan Acute change in mental status, recurrent CVA with thalamic infarction, had extensive neurologic history with history of CVA and TIA in the past with residual left-sided weakness, last year had workup for multiple sclerosis and has reported that the workup was negative, had multiple hospitalization with change in mental status due to electrolyte imbalance. Her MRI on this admission is showing a new thalamic infarction. Managed by primary care physician, started on aspirin and Plavix Labile hypertension with hypertensive emergency, better blood pressure control at this time, continue to monitor Workup for secondary hypertension was initiated, results are pending Hypokalemia, hypomagnesemia, being replaced, managed by primary care physician UTI, receiving antibiotic, managed by primary care team History of CVA and TIA, baseline some degree of confusion Diabetes mellitus, followed and managed by primary care physician Clinical Quality Measures DVT/VTE Risk/Contraindication: Risk Factor Score Per Nursin RFS Level Per Nursing on Admit: 4+=Very High ROSIE RAMOS MD Aug 10, 2019 08:18
[2019-08-10 08:20] VITALS: BP 165/84
--- NOTE | 2019-08-10 08:44 | Progress Note - Hospitalist ---
Subjective HPI/CC On Admission Date Seen by Provider: Aug 10, 2019 Time Seen by Provider: 08:38 altered mental status Subjective/Events-last exam Pt more alert today and attempts to speak more but speech is still unintelligible. not at bedside yet this AM. Objective Exam Vital Signs Vital Signs Date Time Temp Pulse Resp B/P (MAP) Pulse Ox O2 Delivery O2 Flow Rate FiO2 08/10/19 08:00 Room Air 08/10/19 07:00 75 08/10/19 03:30 36.9 18 138/82 (100) 97 08/08/19 23:15 Capillary Refill : Less Than 3 Seconds General Appearance: No Apparent Distress, Chronically ill Respiratory: Lungs Clear, No Respiratory Distress Cardiovascular: Regular Rate, Rhythm, No Murmur Neurologic/Psychiatric: Alert, Oriented x3, Aphasia, Depressed Affect Results/Procedures Lab Laboratory Tests 08/10/19 05:20 Patient resulted labs reviewed. Assessment/Plan Assessment and Plan Assess & Plan/Chief Complaint Hypertensive emergency Acute encephalopathy -lmproving BP control today Current antihypertensive regimen is Losartan, Metoprolol, Amlodipine, HCTZ, clonidine -Monitor on telemetry -TSH and T4 normal -Plasma metanephrines pending -Renin/Gabe ratio pending -Renal artery ultrasound - no evidence of PEPPER -Consider sleep study as outpatient Acute/Subacute Parietal and Thalamus Infarct Expressive Aphasia - ST/OT/PT - ASA/Plavix/Statin - Cardiology consulted, appreciate recs - IRU consulted - Sorter Packer consulted Urinary tract infection due to Aerococcus Remains afebrile without leukocytosis UA consistent with UTI Urine culture positive for Aerococcus -Completed Ceftriaxone Remains disoriented, likely underlying vascular dementia Acute kidney injury- resolved Continue to monitor Hypokalemia Hypomagnesemia Continue to monitor and replace as needed per protocol Type II diabetes mellitus A1C 7.8% Levemir 30 units nightly Novolog 5 units with meals Hold glyburide Increase sliding scale insulin DVT prophylaxis: SCDs, ambulation Diagnosis/Problems Diagnosis/Problems (1) HTN (hypertension) Status: Acute Qualifiers: Hypertension type: essential hypertension Qualified Codes: I10 - Essential (primary) hypertension (2) UTI (urinary tract infection) Status: Acute Qualifiers: Urinary tract infection type: acute cystitis Hematuria presence: without hematuria Qualified Codes: N30.00 - Acute cystitis without hematuria (3) Hypokalemia Status: Acute (4) Hypomagnesemia Status: Acute (5) AMS (altered mental status) Status: Acute Qualifiers: Altered mental status type: unspecified Qualified Codes: R41.82 - Altered mental status, unspecified (6) Generalized weakness Status: Acute (7) Insulin dependent diabetes mellitus Status: Chronic (8) Hypertensive emergency Status: Resolved Resolution Date/Time: 08/09/19 @ 11:07 (9) Multiple sclerosis Status: Chronic (10) Infarction of thalamus Status: Acute (11) Left parietal lobe lesion Status: Acute Clinical Quality Measures DVT/VTE Risk/Contraindication: Risk Factor Score Per Nursin RFS Level Per Nursing on Admit: 4+=Very High NATI GARCIA MD Aug 10, 2019 08:44
[2019-08-10] MEDS: LOSARTAN 100 MG (COZAAR) TABLET PO SCH (09:37)
[2019-08-10] MEDS: HYDROCHLOROTHIAZIDE 25 MG (HCTZ) TAB PO SCH (09:37)
[2019-08-10] MEDS: DOCUSATE SODIUM 100 MG (COLACE) CAP PO SCH ×2 (09:37→21:25)
[2019-08-10] MEDS: ceTIRizine 10 MG (ZyrTEC) TAB NON-FORMULARY PO SCH (09:37)
[2019-08-10] MEDS: ASPIRIN E.C. 81 MG (ECOTRIN) TAB PO SCH (09:37)
[2019-08-10] MEDS: SENNA W/DOCUSATE (SENOKOT S) TABLET PO SCH ×2 (09:37→21:24)
[2019-08-10] MEDS: amLODIPine 10 MG (NORVASC) TAB PO SCH (09:37)
[2019-08-10] MEDS: meTOprolol TARTRATE 50 MG (LOPRESSOR) TAB PO SCH ×2 (09:38→21:40)
[2019-08-10] MEDS: CLOPIDOGREL 75 MG (PLAVIX) TABLET PO SCH (09:38)
[2019-08-10] MEDS: cloNIDine 0.2 MG (CATAPRES) TAB PO SCH ×3 (09:38→21:40)
--- NOTE | 2019-08-10 10:40 | Physical Therapy Daily Note ---
PT Daily Note-Current Subjective Patient is very slow to respond. Spouse present. Patient incontinent bowel and bladder with purewick and depends on with purewick soiled with BM. RN notified. Mental Status Patient Orientation: Confused Transfers SCALE: Activities may be completed with or without assistive devices. 5-Hvtuubkwwh-gnjitko completes the activity by him/herself with no assistance from a helper. 5-Set-up or Clean-up Assistance-helper sets up or cleans up; patient completes activity. [place] assists only prior to or following the activity. 4-Supervision or Touching Assistance-helper provides verbal cues and/or touching/steadying and/or contact guard assistance as patient completes activity. Assistance may be provided throughout the activity or intermittently. 3-Partial/Moderate Assistance-helper does LESS THAN HALF the effort. [place] lifts, holds or supports trunk or limbs, but provides less than half the effort. 2-Substantial/Maximal Assistance-helper does MORE THAN HALF the effort. [place] lifts or holds trunk or limbs and provides more than half the effort. 3-Rkoblwoax-tiuwmp does ALL the effort. Patient does none of the effort to comp lete the activity. Or, the assistance of 2 or more helpers is required for the patient to complete the activity. If activity was not attempted, code reason: 7-Patient Refused. 9-Not Applicable-not attempted and the patient did not perform the activity before the current illness, exacerbation or injury. 10-Not Attempted due to Environmental Limitations-(lack of equipment, weather restraints, etc.). 88-Not Attempted due to Medical Conditions or Safety Concerns. Roll Left to Right (QC): 2 Sit to Lying (QC): 2 Sit to Stand (QC): 2 Chair/Ted-ps-Sxnrn Xfer(QC): 2 Bed to/from Chair: 2 Weight Bearing Right Lower Extremity: Right Weight Bearing/Tolerated Left Lower Extremity: Left Weight Bearing/Tolerated Gait Training Does the Patient Walk?: Yes Distance: 15' Walk 10 feet (QC): 3 Walk 50 ft with 2 Turns(QC): 88 Walk 150 ft (QC): 88 Walking 10ft/uneven surface-QC: 88 Gait Assistive Device: FWW retropulsive with PT correct, shuffle gait sequence Exercises Supine Ex: Ankle pumps, Heel Slides, Straight leg raise Supine Reps: 10 (AAROM) Seated Therapy Exercises: Long arc quads Seated Reps: 15 (AAROM bilaterally) Assessment Patient requires time to complete all functional tasks. Very slow to respond and requires redirection to remain on task. From a PT standpoint, patient will benefit from extended care facility due to inability to care for self and increase in need of dependency. PT [place] Can Worker Goals [place] Can Worker Goals PT Nursing Home Goals Time Frame: Aug 26, 2019 Sit to Lying (QC): 4 Lying-Sitting on Side/Bed(QC): 4 Sit to Stand (QC): 4 Roll Left to Right (QC): 4 Chair/Hlq-pc-Mvfom Xfer(QC): 4 Car Transfer (QC): 4 Does the Patient Walk: Yes Distance: 75' Walk 10 feet (QC): 4 Walk 10ft-Uneven Surface(QC): 4 Walk 50ft with 2 Turns (QC): 4 Walk 150 ft (QC): 9 Gait Assistive Device: FWW PT Plan Treatment/Plan Treatment Plan: Continue Plan of Care Treatment Plan: Bed Mobility, Education, Functional Activity Shiv, Functional Strength, Gait, Safety, Therapeutic Exercise, Transfers Treatment Duration: Aug 26, 2019 Frequency: 6 times per week Estimated Hrs Per Day: .25 hour per day Patient and/or Family Agrees t: Yes Time/GCodes Time In: 935 Time Out: 1000 Total Billed Treatment Time: 25 Total Billed Treatment 1 visit EX 17 min GT 8 min SOPHIA ROSARIO PT Aug 10, 2019 10:40
--- NOTE | 2019-08-10 11:41 | Speech Therapy Daily Note ---
Speech Daily Progress Note Subjective Date Seen by Provider: Aug 10, 2019 Time Seen by Provider: 00:15 Patient slow to respond but continues to be more alert. Objective Patient upgraded to mechanical soft to increase amount of intake. Assessment Assessment Current Status: Fair Progress Treatment Plan Continue Plan of Care Speech Short Term Goals Short Term Goals Short Term Goals 1) Patient will tolerate least restrictive diet level without s/s of aspiration at 90% or greater. 2) Patient/caregivers will utilize compensatory strategies as trained for safe oral intake at 90% or greater given 10% cues. 3) Patient will demonstrate speech production for expressing wants/needs at 80% or greater independently. Speech Cardiac Nurse Practitioner Goals Cardiac Nurse Practitioner Goals 1) Patient will maintain adequate nutrition/hydration via safe effective swallow function. 2) Patient will be able to effectively communicate verbally with listeners. Speech-Plan Patient/Family Goals Patient/Family Goals: Patient's plans are unknown. ST clinical opinion is that she would best benefit from SNF upon discharge. Treatment Plan Speech Therapy Treatment Plan: Continue Plan of Care Patient's level of intake is expected to improve with Dysphagia II diet level. Treatment Duration: Aug 16, 2019 Frequency: 5 times per week Estimated Hrs Per Day: .25 hour per day Rehab Potential: Fair Barriers to Learning: Patient has had multiple strokes. Pt/Family Agrees to Plan: Yes Safety Risks/Education Teaching Recipient: Patient, Significant Other Teaching Methods: Discussion Response to Teaching: Verbalize Understanding Education Topics Provided: Safety of oral intake. Time Speech Therapy Time In: 10:05 Speech Therapy Time Out: 10:20 Total Billed Time: 15 Billed Treatment Time 1, HAILE Castillo Aug 10, 2019 11:41
[2019-08-10 12:13] VITALS: BP 112/69
--- NOTE | 2019-08-10 13:04 | NUR ---
CM/SS spoke with the patient and her in regards to discharge planning. stated that they had been at [facility] before but were not overly satisfied there. He was hoping she would qualify for IRF but does not then he would like a referral sent to SNF [facility]. Discussed sending a referral for [facility] to begin looking at information, he was good with this. Referral sent to [facility] and they will review.
--- NOTE | 2019-08-10 14:11 | Occupational Ther Daily Note ---
OT Current Status-Daily Note Subjective Pt alert, sitting in recliner. Pt agrees to therapy, by nodding head. Pt is able to verbalize at least one word for answers that is understandable. Mental Status/Objective Patient Orientation: Person, Place, Situation Attachments: IV ADL-Treatment Therapy Code Descriptions/Definitions Functional Turner Measure: 0=Not Assessed/NA 4=Minimal Assistance 1=Total Assistance 5=Supervision or Setup 2=Maximal Assistance 6=Modified Turner 3=Moderate Assistance 7=Complete IndependenceSCALE: Activities may be completed with or without assistive devices. 7-Iqepoetrhm-pwmvter completes the activity by him/herself with no assistance from a helper. 5-Set-up or Clean-up Assistance-helper sets up or cleans up; patient completes activity. [place] assists only prior to or following the activity. 4-Supervision or Touching Assistance-helper provides verbal cues and/or touching/steadying and/or contact guard assistance as patient completes activity. Assistance may be provided throughout the activity or intermittently. 3-Partial/Moderate Assistance-helper does LESS THAN HALF the effort. [place] lifts, holds or supports trunk or limbs, but provides less than half the effort. 2-Substantial/Maximal Assistance-helper does MORE THAN HALF the effort. [place] lifts or holds trunk or limbs and provides more than half the effort. 2-Acsswxsky-nsextj does ALL the effort. Patient does none of the effort to compl ete the activity. Or, the assistance of 2 or more helpers is required for the patient to complete the activity. If activity was not attempted, code reason: 7-Patient Refused. 9-Not Applicable-not attempted and the patient did not perform the activity before the current illness, exacerbation or injury. 10-Not Attempted due to Environmental Limitations-(lack of equipment, weather restraints, etc.). 88-Not Attempted due to Medical Conditions or Safety Concerns. Other Treatment Pt had eyes open most of the time during therapy though fatigue quickly. Worked with pt pulling forward to sit up so that back was unsupported in recliner. Pt required max A to pull up then stay sitting up, attempted for pt to lift head, pt lifted eyes but unable to lift head to neutral. After therapy pt sitting in recliner with LE's elevated and reclined. All needs met in room. present in room, call light/phone in reach. OT Short Term Goals Short Term Goals 1=Demonstrate adherence to instructed precautions during ADL tasks. 2=Patient will verbalize/demonstrate understanding of assistive dev ices/modifications for ADL. 3=Patient will improve strength/tolerance for activity to enable patient to perform ADL's. OT Manager Universal Goals Penitentiary Goals Time Frame: Aug 18, 2019 Eating (QC): 6 Oral Hygiene (QC): 5 Shower/Bathe Self (QC): 4 Upper Body Dressing (QC): 5 Lower Body Dressing (QC): 4 Toileting Hygiene (QC): 5 Toilet/Commode Transfer (QC): 5 Additional Goals: 1-Demonstrate ADL Tasks, 2-Verbalize Understanding, 3- ImproveStrength/Shiv 1=Demonstrate adherence to instructed precautions during ADL tasks. 2=Patient will verbalize/demonstrate understanding of assistive devices/modifications for ADL. 3=Patient will improve strength/tolerance for activity to enable patient to perform ADL's. OT Education/Plan Problem List/Assessment Assessment: Decreased Activ Tolerance, Decreased Safety Aware, Decreased UE Strength, Impaired Bed Mobility, Impaired Coordination, Impaired Funct Balance, Impaired I ADL's, Impaired Self-Care Skills, Restricted Funct UE ROM Pt to benefit from skilled OT intervention for ADL training, transfers, strengthening, and safety education to increase level of independence and allow safe discharge plan. Discharge Recommendations Plan/Recommendations: Continue POC Treatment Plan/Plan of Care Patient would benefit from OT for education, treatment and training to promote independence in ADL's, mobility, safety and/or upper extremity function for ADL's. Plan of Care: ADL Retraining, Functional Mobility, UE Funct Exercise/Act, UE Neuromus Re-Ed/Coord Treatment Duration: Aug 18, 2019 Frequency: 5 times per week Estimated Hrs Per Day: .25 hour per day Agreement: Yes Rehab Potential: Fair Time/GCodes Start Time: 11:45 Stop Time: 11:55 Total Time Billed (hr/min): 15 Billed Treatment Time 1 visit-EX 1 (10 min) JORGE TERRY Aug 10, 2019 14:11
--- NOTE | 2019-08-10 14:12 | NUR ---
CM/SS [facility] does not have a female bed available. Referral sent to [facility].
[2019-08-10 17:14] VITALS: BP 146/88
[2019-08-10 19:43] VITALS: BP 105/61
[2019-08-10 21:27] VITALS: BP 140/64
[2019-08-10] MEDS: MELATONIN 3 MG TABLET PO PRN (21:40)
[2019-08-11 00:30] VITALS: BP 110/72
[2019-08-11 04:05] VITALS: BP 137/76
[2019-08-11 06:28] LABS: BASOPHILS % (AUTO) 1 % (0-10); EOSINOPHILS # (AUTO) 0.3 10^3/uL (0.0-0.3); EOSINOPHILS % (AUTO) 5 % (0-10); HEMATOCRIT 36 % (35-52); LYMPHOCYTES # (AUTO) 2.2 X 10^3 (1.0-4.0); LYMPHOCYTES % (AUTO) 43 % (12-44); MEAN CORPUSCULAR HEMOGLOBIN 29 PG (25-34); MEAN CORPUSCULAR HGB CONC 33 G/DL (32-36); MEAN CORPUSCULAR VOLUME 87 FL (80-99); MEAN PLATELET VOLUME 11.9 FL (7.4-10.4); MONOCYTES # (AUTO) 0.6 X 10^3 (0.0-1.0); MONOCYTES % (AUTO) 12 % (0-12); NEUTROPHILS # (AUTO) 2.1 X 10^3 (1.8-7.8); NEUTROPHILS % (AUTO) 40 % (42-75); PLATELET COUNT 190 10^3/uL (130-400); RED CELL DISTRIBUTION WIDTH 14.9 % (10.0-14.5); WHITE BLOOD COUNT 5.2 10^3/uL (4.3-11.0)
[2019-08-11 06:36] LABS: CALCIUM 9.2 MG/DL (8.5-10.1); CREATININE SERUM 0.94 MG/DL (0.60-1.30); MAGNESIUM 1.7 MG/DL (1.6-2.4); PHOSPHORUS 4.2 MG/DL (2.3-4.7); POTASSIUM 3.4 MMOL/L (3.6-5.0)
[2019-08-11] MEDS: inSUlin ASPART (NovoLOG) 1 UNIT/0.01 ML (CHARGE PER UNIT) SC SCH (06:54)
[2019-08-11] MEDS: POTASSIUM CL 10MEQ/50ML IVPB 50 ML IV SCH (07:20)
[2019-08-11] MEDS: MAGNESIUM 1 GM/100 ML IVPB 100 ML IV SCH (07:20)
[2019-08-11] MEDS: KCL 20 MEQ TAB (K-DUR) PO SCH (07:21)
--- NOTE | 2019-08-11 07:27 | NUR ---
electrolyte protocol not administered d/t decreased urine output
[2019-08-11] MEDS ORDERED: CLOP75TA28 PO (07:44)
[2019-08-11] MEDS ORDERED: ATOR40TA PO (07:44)
[2019-08-11] MEDS ORDERED: HYDR25TA4 PO (07:44)
[2019-08-11] MEDS ORDERED: METO50TA15 PO (07:44)
[2019-08-11] MEDS ORDERED: LOSA100T57 PO (07:44)
[2019-08-11 08:00] VITALS: BP 169/82
[2019-08-11] MEDS: meTOprolol TARTRATE 50 MG (LOPRESSOR) TAB PO SCH (08:19)
[2019-08-11] MEDS: CLOPIDOGREL 75 MG (PLAVIX) TABLET PO SCH (08:19)
[2019-08-11] MEDS: DOCUSATE SODIUM 100 MG (COLACE) CAP PO SCH (08:19)
[2019-08-11] MEDS: SENNA W/DOCUSATE (SENOKOT S) TABLET PO SCH (08:19)
[2019-08-11] MEDS: HYDROCHLOROTHIAZIDE 25 MG (HCTZ) TAB PO SCH (08:19)
[2019-08-11] MEDS: LOSARTAN 100 MG (COZAAR) TABLET PO SCH (08:19)
--- NOTE | 2019-08-11 08:19 | Discharge Inst-Simple/Standard ---
Discharge Inst-Standard Discharge Medications New, Converted or Re-Newed RX: RX on Chart Patient Instructions/Follow Up Plan of Care/Instructions/FU: Please continue to take your medication as written. Please follow up with Dr Goldsmith after discharge from rehab. Activity as Tolerated: Yes Discharge Diet: Semi-Solid Diet Return to The Hospital For: Chest pain, confusion, fever, if you feel you are getting worse. NATI GARCIA MD Aug 11, 2019 08:19
[2019-08-11] MEDS: ASPIRIN E.C. 81 MG (ECOTRIN) TAB PO SCH (08:20)
[2019-08-11] MEDS: amLODIPine 10 MG (NORVASC) TAB PO SCH (08:21)
[2019-08-11] MEDS: ceTIRizine 10 MG (ZyrTEC) TAB NON-FORMULARY PO SCH (08:21)
[2019-08-11] MEDS: cloNIDine 0.2 MG (CATAPRES) TAB PO SCH (08:21)
[2019-08-11] MEDS: PATIENT MAY USE OWN MED,SINGLE MED PO SCH ×2 (08:29→09:47)
--- NOTE | 2019-08-11 08:35 | Discharge Summary ---
Diagnosis/Chief Complaint Date of Admission Aug 03, 2019 at 21:05 Date of Discharge Discharge Date: Aug 11, 2019 Admission Diagnosis Acute encephalopathy Primary Care Frank Santos MD Discharge Diagnosis (1) HTN (hypertension) Status: Acute (2) UTI (urinary tract infection) Status: Acute (3) Hypokalemia Status: Acute (4) Hypomagnesemia Status: Acute (5) AMS (altered mental status) Status: Acute (6) Generalized weakness Status: Acute (7) Insulin dependent diabetes mellitus Status: Chronic (8) Hypertensive emergency Status: Resolved (9) Multiple sclerosis Status: Chronic (10) Infarction of thalamus Status: Acute (11) Left parietal lobe lesion Status: Acute Discharge Summary Procedures/Consulations Dr Gaspar- Pulm Dr Paredes- Cardiology Discharge Physical Exam Allergies: Coded Allergies: canagliflozin (Verified Allergy, Severe, ANAPHYLAXIS, 08/03/19) iodine (Unverified Adverse Reaction, Severe, migraine headache, 08/03/19) lorazepam (Verified Adverse Reaction, Severe, ELEVATED BLOOD PRESSURE, 08/03/19) zolpidem (Verified Adverse Reaction, Severe, SLEEP WALK, 08/03/19) codeine (Unverified Adverse Reaction, Mild, INCREASED ACTIVITY, 08/03/19) erythromycin base (Unverified Adverse Reaction, Mild, NAUSEA, 08/03/19) Heparin Analogues (Unverified Adverse Reaction, Unknown, 08/03/19) Vitals & I&Os Vital Signs Date Time Temp Pulse Resp B/P (MAP) Pulse Ox O2 Delivery O2 Flow Rate FiO2 08/11/19 07:00 68 08/11/19 04:05 36.7 20 137/76 (96) 97 Room Air 08/08/19 23:15 General Appearance: No Apparent Distress, Chronically ill Respiratory: Lungs Clear, No Respiratory Distress Cardiovascular: Regular Rate, Rhythm, No Murmur Neurologic/Psychiatric: Alert, Aphasia (expressive), Depressed Affect Hospital Course Pt is a 68yoCF who was admitted for altered mental status that was found to be multifactorial in nature. She was found to have a UTI and to be hypomagnesemic. These were both treated but her symptoms did not clear and she appeared to have more of an expressive aphasia so work up was done for other etiologies and MRI was obtained which revealed her known MS and acute to subacute left parietal and thalamus infarcts. During this time she was profoundly hypertensive as well and was likely related to her acute CVA. She was started on aspirin and plavix given recurrent strokes and Lipitor. She was seen by PT/OT/ST. Her antihypertensive regimen was adjusted and workup was done for secondary causes of HTN which thus far have been negative (renal usg negative, TSH normal). Workup for pheochromocytoma is still pending. She was discharged to inpatient rehab for continued intensive therapy. Labs (last 24 hrs) Laboratory Tests 08/10/19 11:08: Glucometer 244H 08/10/19 17:13: Glucometer 131H 08/10/19 21:23: Glucometer 254H 08/11/19 05:55: White Blood Count 5.2, Red Blood Count 4.13L, Hemoglobin 12.0, Hematocrit 36, Mean Corpuscular Volume 87, Mean Corpuscular Hemoglobin 29, Mean Corpuscular Hemoglobin Concent 33, Red Cell Distribution Width 14.9H, Platelet Count 190, Mean Platelet Volume 11.9H, Neutrophils (%) (Auto) 40L, Lymphocytes (%) (Auto) 43, Monocytes (%) (Auto) 12, Eosinophils (%) (Auto) 5, Basophils (%) (Auto) 1, Neutrophils # (Auto) 2.1, Lymphocytes # (Auto) 2.2, Monocytes # (Auto) 0.6, Eosinophils # (Auto) 0.3, Basophils # (Auto) 0.0, Sodium Level 138, Potassium Level 3.4L, Chloride Level 104, Carbon Dioxide Level 25, Anion Gap 9, Blood Urea Nitrogen 29H, Creatinine 0.94, Estimat Glomerular Filtration Rate 59, BUN/Creatinine Ratio 31, Glucose Level 82, Calcium Level 9.2, Phosphorus Level 4.2, Magnesium Level 1.7 Microbiology 08/03/19 Urine Culture - Final, Complete Aerococcus urinae Patient resulted labs reviewed. Pending Labs Laboratory Tests 08/11/19 05:55: White Blood Count 5.2, Red Blood Count 4.13, Hemoglobin 12.0, Hematocrit 36, Mean Corpuscular Volume 87, Mean Corpuscular Hemoglobin 29, Mean Corpuscular Hemoglobin Concent 33, Red Cell Distribution Width 14.9, Platelet Count 190, Mean Platelet Volume 11.9, Neutrophils (%) (Auto) 40, Lymphocytes (%) (Auto) 43, Monocytes (%) (Auto) 12, Eosinophils (%) (Auto) 5, Basophils (%) (Auto) 1, Neutrophils # (Auto) 2.1, Lymphocytes # (Auto) 2.2, Monocytes # (Auto) 0.6, Eosinophils # (Auto) 0.3, Basophils # (Auto) 0.0, Sodium Level 138, Potassium Level 3.4, Chloride Level 104, Carbon Dioxide Level 25, Anion Gap 9, Blood Urea Nitrogen 29, Creatinine 0.94, Estimat Glomerular Filtration Rate 59, BUN/Creatinine Ratio 31, Glucose Level 82, Calcium Level 9.2, Phosphorus Level 4.2, Magnesium Level 1.7 Discussion & Recommendations Discharge Planning: >30 minutes discharge planning Discharge Home Medications: Active Scripts Active Hydrochlorothiazide 25 Mg Tablet 25 Mg PO DAILY Metoprolol Tartrate 50 Mg Tablet 100 Mg PO BID Lipitor (Atorvastatin Calcium) 40 Mg Tablet 40 Mg PO HS Clopidogrel (Clopidogrel Bisulfate) 75 Mg Tablet 75 Mg PO DAILY Losartan Potassium 100 Mg Tablet 100 Mg PO DAILY Reported Zyrtec (Cetirizine HCl) 10 Mg Tablet 10 Mg PO DAILY [Elemental Magnesium] 1 Tab PO BID Glipizide ER (Glipizide) 5 Mg Tab.er.24 5 Mg PO BID Novolog Mix 70-30 Flexpen Syrn (Insuln Asp Prt/Insulin Aspart) 300 Units/3 Ml Solution 8-11 Units SC 1200,1700 Clonidine HCl 0.2 Mg Tablet 0.2 Mg PO TID Mirtazapine 7.5 Mg Tablet 7.5 Mg PO HS Oxybutynin Chloride ER (Oxybutynin Chloride) 10 Mg Tab.er.24 10 Mg PO DAILY Sulfamethoxazole-Tmp Ds Tablet (Sulfamethoxazole/Trimethoprim) 1 Each Tablet 1 Tab PO BID 7 Days 7 DAY SUPPLY FILLED 08-02-19 Vitamin C (Ascorbate Calcium) 500 Mg Tablet 500 Mg PO 1200 Probiotic (Lactobacillus Combination No.4) 1 Each Capsule 1 Cap PO DAILY Multivitamins with Minerals (Multivitamin with Minerals) 1 Each Tablet 1 Tab PO 1200 Metanx Capsule (Levomefolate/B6/B12/Algal Oil) 1 Each Capsule 1 Cap PO BID Vitamin D3 (Cholecalciferol (Vitamin D3)) 2,000 Unit Tab.chew 1,000 Unit PO DAILY Aspirin EC (Aspirin) 81 Mg Tablet.dr 81 Mg PO 1200 Fluticasone Propionate 16 Gm Orange.susp 2 Sprays NS DAILY PRN Levemir Flextouch (Insulin Detemir) 100 Unit/1 Ml Insuln.pen 14-15 Units SC HS Metoprolol Succinate 100 Mg Tab.er.24h 100 Mg PO 1200 Potassium Chloride 10 Meq Tablet.er 10 Meq PO DAILY Instructions to patient/family Please see electronic discharge instructions given to patient. Clinical Quality Measures DVT/VTE Risk/Contraindication: Risk Factor Score Per Nursin RFS Level Per Nursing on Admit: 4+=Very High Copy Copies To 1: FRANK SANTOS MD Problem Qualifiers (1) HTN (hypertension): Hypertension type: essential hypertension Qualified Codes: I10 - Essential (primary) hypertension (2) UTI (urinary tract infection): Urinary tract infection type: acute cystitis Hematuria presence: without hematuria Qualified Codes: N30.00 - Acute cystitis without hematuria (3) AMS (altered mental status): Altered mental status type: unspecified Qualified Codes: R41.82 - Altered mental status, unspecified NATI GARCIA MD Aug 11, 2019 08:35
--- NOTE | 2019-08-11 08:58 | NUR ---
CM/SS spoke with [facility]-F, to disregard the referral sent. Patient has been re-evaluated by IRF at the 's request and she should transition to IRF this day.
--- NOTE | 2019-08-11 10:19 | Progress Note - Cardiology ---
Cardiology SOAP Progress Note Subjective: Sitting up in bed. Spouse assisting with morning meal. Pt with garbled conversation, but able to answer no to CP or dyspnea. Spouse verbalizes he has no concerns. Objective: I&O/Vital Signs 08/11/19 08/11/19 08/11/19 08/11/19 00:30 00:58 04:05 07:00 Temp 36.0 36.7 Pulse 71 66 65 68 Resp 20 20 B/P (MAP) 110/72 (85) 137/76 (96) Pulse Ox 98 97 O2 Delivery Room Air Room Air 08/11/19 08:00 Temp 36.9 Pulse 70 Resp 18 B/P (MAP) 169/82 (111) Pulse Ox 100 O2 Delivery Room Air 08/11/19 00:00 Intake Total 600 ml Output Total 500 ml Balance 100 ml Weight (Pounds): 119 Weight (Ounces): 0.0 Weight (Calculated Kilograms): 53.247599 Constitutional: AAO x 3, well-developed, well-nourished Respiratory: No accessory muscle use; chest expansion is symmetric, chest is bilaterally symmetric, lungs clear to auscultation Cardiovascular: regular rate-rhythm; No JVD; S1 and S2 Gastrointestional: No tender; soft, round, audible bowel sounds Extremities: no lower extremity edema bilateral Neurologic/Psychiatric: other (moves extremities, not able to cooperate with a detailed exam, gen weakness; speech delayed with garbled converstation; able to answer yes/no) Skin: No rash on exposed areas, No ulcerations on exposed areas Results/Procedures: Labs Laboratory Tests 08/10/19 11:08: Glucometer 244H 08/10/19 17:13: Glucometer 131H 08/10/19 21:23: Glucometer 254H 08/11/19 05:55: White Blood Count 5.2, Red Blood Count 4.13L, Hemoglobin 12.0, Hematocrit 36, Mean Corpuscular Volume 87, Mean Corpuscular Hemoglobin 29, Mean Corpuscular H emoglobin Concent 33, Red Cell Distribution Width 14.9H, Platelet Count 190, Mean Platelet Volume 11.9H, Neutrophils (%) (Auto) 40L, Lymphocytes (%) (Auto) 43, Monocytes (%) (Auto) 12, Eosinophils (%) (Auto) 5, Basophils (%) (Auto) 1, Neutrophils # (Auto) 2.1, Lymphocytes # (Auto) 2.2, Monocytes # (Auto) 0.6, Eosinophils # (Auto) 0.3, Basophils # (Auto) 0.0, Sodium Level 138, Potassium Level 3.4L, Chloride Level 104, Carbon Dioxide Level 25, Anion Gap 9, Blood Urea Nitrogen 29H, Creatinine 0.94, Estimat Glomerular Filtration Rate 59, BUN/Creatinine Ratio 31, Glucose Level 82, Calcium Level 9.2, Phosphorus Level 4.2, Magnesium Level 1.7 Microbiology 08/03/19 Urine Culture - Final, Complete Aerococcus urinae Laboratory Tests 08/10/19 05:20 08/11/19 05:55 Procedures NAME: [facility]D [facility] REC#: [id number] PT STATUS: ADM IN : 1950 PHYSICIAN: NATI GARCIA MD ADMIT DATE: 08/03/19 Signed Date of Exam: 08/09/19 US RENAL ART DOPPLER HECTOR COMP EXAMINATION: Ultrasound renal artery Doppler, bilateral. INDICATION: Resistant hypertension. TECHNIQUE: Spectral and color flow imaging of the kidneys was performed. COMPARISON: There are no prior renal artery Doppler examinations available for comparison. FINDINGS: Both kidneys are identified. The right kidney measures 9.9 x 4.5 x 5.4 cm while the left kidney is estimated to be 10.9 x 5.2 x 5.1 cm. There is no evidence for a solid renal mass or for hydronephrosis of either kidney. The renal cortices are normal in thickness and echogenicity. There is no evidence for a hemodynamically significant stenosis of the renal arteries although the proximal left renal artery is not well visualized. The bladder was not included on this exam. IMPRESSION: 1. There is no evidence for a solid renal mass or for an acute abnormality of either kidney. 2. There is no evidence for renal artery stenosis although the proximal most portion of the left renal artery is not well visualized. 3. The bladder was not included on this exam. Dictated by: Dictated on workstation # [id number] Dict: 08/09/19 1124 Trans: 08/09/19 1658 Interpreted by: OSMEL REESE MD Electronically signed by: OSMEL REESE MD 08/09/19 2572 A/P: Assessment: Acute change in mental status, recurrent CVA with thalamic infarction, had extensive neurologic history with history of CVA and TIA in the past with residual left-sided weakness, last year had workup for multiple sclerosis and has reported that the workup was negative, had multiple hospitalization with change in mental status due to electrolyte imbalance. Her MRI on this admission is showing a new thalamic infarction. Managed by Hospitalist/Medical Service Labile hypertension Electrolyte abnormalities - replace UTI - management per Medical Services History of CVA and TIA, baseline some degree of confusion Diabetes mellitus 2 Plan: Plan is to transfer it IRF later today Spoke with spouse and pt, answered questions Continue current medication regimen Follow on lab Physician Assessment Physician Assessment Communication limited due to dysphasia. No cp or shortness of breath Lungs: fair to good air entry Cor: reg Ext: no c/c/e Neuro: dysphasia, generally weak, not able to cooperate with neuro exam A&R * As documented in our note above that I updated (italics) and as noted below * I reviewed her chart * Continue current regimen * Replenish lytes * Monitor labs * I discussed her CV issues with her and answered CV-related questions MINGO KESSLER TRAILER MECHANIC Aug 11, 2019 10:19 HOSSEIN CRANE MD FACP [facility] Aug 11, 2019 10:51
[2019-08-11 10:45] VITALS: BP 169/82
--- NOTE | 2019-08-11 10:45 | NUR ---
DISCHARGED TO REHAB ROOM 231 PER W/C BY PT. REPORT GIVEN TO HILARY BRADY.
--- NOTE | 2019-08-15 12:27 | Physician Query Clarification ---
PQ-Conflicting Diagnosis Admission/Discharge Admission Date: Aug 03, 2019 at 21:05 Discharge Date: Aug 11, 2019 at 10:30 The medical record reflects the following clinical scenario: History/Risk Factors: CVA, Hypertensive emergency, MS, dementia Clinical Findings: confusion, weakness Treatment: CT, MRI brain, IV Sodium chloride, potassium chloride, magnesium sulfate Question: Do you agree with the impression of the metabolic encephalopathy per Dr. Gaspar. The condition is not included in the discharge diagnoses. Please document a response in Progress Note or Discharge Summary. 1. Yes 2. No 3. Other, with explanation of clinical findings 4. Clinically undetermined, no explanation for clinical findings. PHYSICIAN RESPONSE Do you agree w/Consulting Dx?: Yes Please remember a lack of response to the above will prompt a phone page by CDI/Coding staff. In responding to this query, please exercise your independent professional judgment. The purpose of this communication is to more accurately reflect the complexity of your patients condition. The fact that a question is asked does not imply that any particular answer is desired or expected. Thank you for your timely response to this clarification. Requestors name: [employer] THIS PHYSICIAN QUERY FORM IS A PERMANENT PART OF THE MEDICAL RECORD CALIXTO SUMMERS Aug 15, 2019 12:27 NATI GARCIA MD Aug 16, 2019 20:25
[2019-08-17] MEDS ORDERED: AMLO10TA7 PO (08:11)
[2019-08-17] MEDS ORDERED: LOSA100T57 PO (08:11)
[2019-08-17] MEDS ORDERED: SENN-20 PO (08:11)
[2019-08-17] MEDS ORDERED: OXC5T PO (08:11)
[2019-08-17] MEDS ORDERED: INSU100V5 SQ (08:11)
[2019-08-17] MEDS ORDERED: CLOP75TA28 PO (08:11)
[2019-08-17] MEDS ORDERED: HYDR25TA4 PO (08:11)
[2019-08-17] MEDS ORDERED: ATOR40TA PO (08:11)
[2019-08-17] MEDS ORDERED: INSU100V16 SQ (08:11)
== END 2019-08-11 10:30 | DRG 64 ==
LOC: EDUNIT# 19:17 → ER 19:19 → 4TH 21:05 → ICU 08-06 14:35 → 4TH 08-09 12:20
PROVIDERS: ADMIT Internal Medicine; ATTEND Internal Medicine
DX: I63.89 Other cerebral infarction (principal); R47.01 Aphasia; N17.9 Acute kidney failure, unspecified; N30.00 Acute cystitis without hematuria; G93.41 Metabolic encephalopathy; I16.1 Hypertensive emergency; I67.4 Hypertensive encephalopathy; I69.354 Hemiplegia and hemiparesis following cerebral infarction affecting left non-dominant side; E11.65 Type 2 diabetes mellitus with hyperglycemia; I95.9 Hypotension, unspecified; J30.2 Other seasonal allergic rhinitis; E87.6 Hypokalemia; E83.42 Hypomagnesemia; R60.1 Generalized edema; E78.00 Pure hypercholesterolemia, unspecified; G35 Multiple sclerosis; G47.33 Obstructive sleep apnea (adult) (pediatric); G43.909 Migraine, unspecified, not intractable, without status migrainosus; F41.9 Anxiety disorder, unspecified; F32.9 Major depressive disorder, single episode, unspecified; K59.09 Other constipation; F03.90 Unspecified dementia, unspecified severity, without behavioral disturbance, psychotic disturbance, mood disturbance, and anxiety; B96.89 Other specified bacterial agents as the cause of diseases classified elsewhere; Z86.73 Personal history of transient ischemic attack (TIA), and cerebral infarction without residual deficits; Z87.19 Personal history of other diseases of the digestive system; Z79.4 Long term (current) use of insulin
CPT/HCPCS: 36415; 70450; 70551; 71045; 76770; 80048; 80053; 81000; 82010; 82088; 82962; 83036; 83605; 83735; 83835; 84100; 84439; 84443; 85025; 87077; 87088; 93005; 93306; 93975; 96374

== ENCOUNTER 2019-08-11 08:50 | Inpatient (IN) | payer MEDICARE ==
[~2019-08-11] VITALS: Ht 162.6 cm; Wt 63.6 kg
[~2019-08-11 08:50] MED LIST changes: +ATOR40TA PO; +CETI10TA20 PO; +CLON0.2T PO; +CLOP75TA28 PO; +ELEMENTAL MAGNESIUM PO; +GLIP5TAB26 PO; +HYDR25TA4 PO; +INSU100I13 SC; +LOSA100T57 PO; +MAGN400T39 PO; +METO50TA15 PO; +MIRT7.5T8 PO; +OXYB10TA PO; +SULF-222 PO
[2019-08-11 10:30] VITALS: BP 117/77
--- NOTE | 2019-08-11 10:52 | Physical Therapy Evaluation ---
PT Evaluation-General Medical Diagnosis Admission Date 08/11/19 Medical Diagnosis: acute encephalopatyh Onset Date: Aug 11, 2019 Therapy Diagnosis Therapy Diagnosis: weakness; abn gait Height/Weight Height (Feet): 5 Height (Inches): 4.00 Weight (Pounds): 119 Weight (Ounces): 0.0 Precautions Precautions/Isolations: Standard Precautions Referral Physician: Jigar Reason for Referral: Evaluation/Treatment Medical History Pertinent Medical History: Atrial Fib, CVA, DM, HTN, Neuropathy Current History Pt recnetly admitted to [facility] for reports of weakness; found to have acute encephalopathy. Transferred to ARU for continued medical care and skilled thera py services Reviewed History: Yes Social History Home: Single Level Current Living Status: Spouse Entry Into Home: Stairs With Railing Prior Prior Level of Function SCALE: Activities may be completed with or without assistive devices. 9-Zmoebgwbbc-swlwena completes the activity by him/herself with no assistance from a helper. 5-Set-up or Clean-up Assistance-helper sets up or cleans up; patient completes activity. [place] assists only prior to or following the activity. 4-Supervision or Touching Assistance-helper provides verbal cues and/or touching/steadying and/or contact guard assistance as patient completes activity. Assistance may be provided throughout the activity or intermittently. 3-Partial/Moderate Assistance-helper does LESS THAN HALF the effort. [place] lifts, holds or supports trunk or limbs, but provides less than half the effort. 2-Substantial/Maximal Assistance-helper does MORE THAN HALF the effort. [place] lifts or holds trunk or limbs and provides more than half the effort. 9-Kzhqgfamy-hyumvi does ALL the effort. Patient does none of the effort to complete the activity. Or, the assistance of 2 or more helpers is required for the patient to complete the activity. If activity was not attempted, code reason: 7-Patient Refused. 9-Not Applicable-not attempted and the patient did not perform the activity before the current illness, exacerbation or injury. 10-Not Attempted due to Environmental Limitations-(lack of equipment, weather restraints, etc.). 88-Not Attempted due to Medical Conditions or Safety Concerns. Bed Mobility: 5 Transfers (B,C,W/C): 5 Gait: 5 Stairs: 4 (used her walker to go up/down steps with assist from spouse) Indoor Mobility (Ambulation): Needed Some Help Stairs: Needed Some Help Prior Devices Use: Walker Pt's spouse assists as needed; uses a wc and walker for mobiltiy. PT Evaluation-Current Subjective Agrees to PT. Reports prior to hospital admit, she had been going to outpt therapy Pain Numeric Pain Scale: 0-No Pain Location: No Pain Reported Objective Patient Orientation: Person, Place, Time, Situation Problem Solving: Fair ROM/Strength ROM Lower Extremities AAROM WFL Strength Lower Extremities B LE strength is grossly 3-/5 throughout; slow to initiate movement or complete movemehnt. Integumentary/Posture Integumentary refer to nursing notes. Bladder Incontinence: Yes Posture rounded shoulders with slight forward head. Neuromuscular (Tone, Coordination, Reflexes) delayed but intact Sensory Vision: Functional Hearing: Functional Hand Dominance: Right Sensation Right Lower Extremit: Intact Sensation Left Lower Extremity: Intact Transfers Roll Left to Right (QC): 2 Sit to Lying (QC): 2 Lying to Sitting/Side of Bed(Q: 2 Sit to Stand (QC): 2 Chair/Ssb-jf-Qbzli Xfer(QC): 2 Car Transfer (QC): 2 Pt is dependent for transfer but able to participate; takes extra time to complete all tasks and requires heavy cues to sequence. Slow with movement and lacks initiation. Gait Does the Patient Walk?: No and Walking Goal IS indicated Mode of Locomotion: Both Anticipated Mode of Locomotion: Both Walk 10 feet (QC): 88 (unable to initiate gait this visit. ) Walk 50 ft with 2 Turns(QC): 88 Walk 150 ft (QC): 88 Walking 10ft/uneven surface-QC: 88 Comments/Gait Description SPT only; unable to initiate gait this visit. Wheelchair Training Does the Pt Use a Wheelchair?: Yes Wheel 50 ft with 2 turns (QC): 2 (depenedent for wc mobiltiy at this time due to functional weakness) Wheel 150 ft (QC): 2 Type of Wheelchair: Manual Stairs 1 Step (curb) (QC): 88 4 Steps (QC): 88 12 Steps (QC): 88 Balance Sitting Static: Fair Sitting Dynamic: Fair Standing Static: Poor Standing Dynamic: Poor Picking up an Object (QC): 88 Special Test Comments poor trunk control due to balance deficits and core weakness Treatment Func tional transfers. Assessment/Needs Pt presents with a decline in functional strength and mobility due to a recnet acute hospital stay. She requires dependent assist with all mobiltiy and requires heavy cues to complete tasks. Her balance and activitiy tolerance are impaired. She is unable to effectivley manage at home with her spouse at this time. She will benefit from skilled therapy to progress mobiltiy and strength to allow her to return home as before. Rehab Potential: Fair PT Seo Professional Goals Seo Professional Goals PT Usp Goals Time Frame: Sep 08, 2019 Sit to Lying (QC): 5 Lying-Sitting on Side/Bed(QC): 5 Sit to Stand (QC): 5 Roll Left to Right (QC): 5 Chair/Uzp-pi-Tusqa Xfer(QC): 5 Car Transfer (QC): 5 Does the Patient Walk: No and Walking Goal IS indicated Walk 10 feet (QC): 4 Walk 10ft-Uneven Surface(QC): 4 Walk 50ft with 2 Turns (QC): 4 Walk 150 ft (QC): 4 Gait Assistive Device: FWW Wheel 50 feet with 2 turns (QC: 4 1 Step (curb) (QC): 4 4 Steps (QC): 4 12 Steps (QC): 88 Picking up an Object (QC): 88 PT Plan Problem List Problem List: Activity Tolerance, Functional Strength, Safety, Balance, Gait, Transfer, Bed Mobility Treatment/Plan Treatment Plan: Continue Plan of Care Treatment Plan: Bed Mobility, Education, Functional Activity Shiv, Functional Strength, Group Therapy, Gait, Safety, Therapeutic Exercise, Transfers Treatment Duration: Sep 08, 2019 Frequency: At least 5 of 7 days/Wk (IRF) Estimated Hrs Per Day: 1.5 hours per day Patient and/or Family Agrees t: Yes Safety Risks/Education Patient Education: Transfer Techniques, Safety Issues Teaching Recipient: Patient Teaching Methods: Demonstration, Discussion Response to Teaching: Reinforcement Needed Discharge Recommendations Therapy Discharge Recommendati: Post Acute PT Time/GCodes Time In: 1030 Time Out: 1045 Total Billed Treatment Time: 15 Total Billed Treatment visit EVM 15 JORGE WINCHESTER PT Aug 11, 2019 10:52
--- NOTE | 2019-08-11 11:04 | NUR ---
REVIEWED MEDICATIONS THEY WERE REPORTED UPON DISCHARGE FROM [address] [place] [address]. I WILL UPDATE THE MED REC BACK THE THE LIST REPORTED UPON ADMISSION AT A LATER TIME FOR PROPER DISCHARGE HOME ORDERS. NOTE THE FOLLOWING CHANGES WERE MADE AT DISCHARGE FROM [address] [place] [address]: START TAKING: LIPITOR 40MG HS PLAVIX 75MG DAILY HCTZ 25MG DAILY METOPROLOL TARTRATE 100MG BID STOP TAKING: METOPROLOL SUCCINATE 100MG DAILY BACTRIM DS BID (7 DAYS FILLED 08-02-19) CHANGE HOW YOU TAKE: LOSARTAN 100MG DAILY (CHANGED FROM 50MG DAILY) Addendum: 08/14/19 at 0821 by GABY PINEDA [facility] UPDATED MED REC BACK TO THE LIST OF MEDICATIONS REPORTED ON ADMISSION TO [address] [place] [address]. I REMOVED THE 4 NEW MEDICATIONS, CHANGED THE LOSARTAN BACK TO 50MG DAILY AND ADDED BACK THE METOPROLOL THAT WAS STOPPED. I DID NOT ADD BACK THE SHORT TERM SUPPLY OF BACTRIM AT THIS TIME THAT THE PATIENT HAD FILLED PRIOR TO ADMISSION.
[2019-08-11] MEDS ORDERED: ONDANSETRON 4 MG (ZOFRAN) ORAL DISSOLVE TAB PO PRN (11:15)
[2019-08-11] MEDS ORDERED: FLUTICASONE NASAL SPRAY (FLONASE) 16 GM BTL NS PRN (11:15)
[2019-08-11] MEDS ORDERED: POLYETHYLENE GLYCOL 17 GM (MIRALAX) PACK PO PRN (11:15)
[2019-08-11] MEDS ORDERED: ONDANSETRON 4 MG/2 ML (SDV) Z0FRAN IV PRN (11:15)
[2019-08-11] MEDS ORDERED: MELATONIN 3 MG TABLET PO PRN (11:15)
[2019-08-11] MEDS ORDERED: ACETAMINOPHEN 325 MG TABLET PO PRN (11:15)
--- NOTE | 2019-08-11 11:30 | PM&R H&P / Post Admit Assess ---
History of Present Illness HPI/Chief Complaint Chief complaint: CVA HPI: This is a 68yoWF known to me from 10 months ago in inpatient rehab for one month following a stroke-like condition that caused progression of multiple sc chelita who resides at home with her who is very involved in her care, who presents to the inpatient rehab in need of rehabilitation following a stroke and subsequent weakness. Imaging scan confirmed stroke. At this current time she is on a modified diet and bowels are moving a little bit too loosely but she is motivated and ready to be admitted to inpatient rehab to begin a recovery to ultimately return home to lessen the burden on her . CC/HPI per YAIR Duarte CC: UTI w/ confusion, Stroke, Multiple Sclerosis HPI: Pt was not able to communicate very well most of the interview. She did respond yes and no to several questions she was not able to state her name or birthday. Her was the primary historian. He stated that she had been in the hospital and rehab unit previously from which she was able to return home using a walker. She was brought in to the hospital this visit for a UTI that was causing confusion along with hypertension. During her time in the hospital she had an MRI completed that showed evidence of multiple sclerosis with lesions. The MRI also showed she had a stroke. She is unable to communicate what her current struggles are regarding her neurological deficiencies. She is currently unable/unmotivated to sit up in bed unassisted. She reports being able to walk with a walker before entering the hospital and would like to be able to return to that level of function. Her states that she previously had similar symptoms that appeared to be related to her metformin causing lactic acid and her symptoms reportedly became better. The seemed to not fully understand the diagnosis of MS stating that metformin lactic acidosis can mimic MS. The patient was able to understand most of the questions, but not able to respond to questions do to inability to find words. Neuro Exam: EOMI She did not perform the CN7 exam due to inability to understand instructions with demonstration provided or possibly lack of motivation She did not rotate her head and when asked why she responded yes to the question of pain Sensation grossly intact in upper and lower extremities bilaterally She was unable to verbalize the discrimination between dull and sharp sensation, but did appear to be able to tell the difference Muscle strength was difficult to assess Hand ceramics technician was 5/5 on right, but 4/5 on left Bilateral forearm flexion and extension 3/5. Difficult to assess further because she did not attempt to provide resistance Bilateral abduction of shoulder 2/5 Plantar flexion and dorsiflexion of bilateral feet 5/5 Bilateral hip flexion and extension 4/5 Source: patient, RN/MD, old records, spouse Exam Limitations: no limitations Date Seen 08/11/19 Time Seen by a Provider: 11:30 Attending Physician Karla Jolley DO PCP Frank Goldsmith MD Referring Physician Date of Admission Aug 11, 2019 at 10:30 Home Medications & Allergies Home Medications Reviewed patient Home Medication Reconciliation performed by pharmacy medication reconciliations survey technician and/or nursing. Patients Allergies have been reviewed. Allergies Allergies Coded Allergies canagliflozin (Verified Allergy, Severe, ANAPHYLAXIS, 08/03/19) iodine (Unverified Adverse Reaction, Severe, migraine headache, 08/03/19) lorazepam (Verified Adverse Reaction, Severe, ELEVATED BLOOD PRESSURE, 08/03/19) zolpidem (Verified Adverse Reaction, Severe, SLEEP WALK, 08/03/19) codeine (Unverified Adverse Reaction, Mild, INCREASED ACTIVITY, 08/03/19) erythromycin base (Unverified Adverse Reaction, Mild, NAUSEA, 08/03/19) Heparin Analogues (Unverified Adverse Reaction, Unknown, 08/03/19) Past Tftgxkl-Nhwbdv-Pqzppa Hx Past Med/Social Hx: Reviewed Nursing Past Med/Soc Hx, Reviewed and Corrections made Patient Social History Marrital Status: Employed/Student: retired Smoking Status: Never a Smoker 2nd Hand Smoke Exposure: No Recent Hopitalizations: No (DC'D 12/08/18) Immunizations Up To Date Tetanus Booster (TDap): More than 5yrs Date of Pneumonia Vaccine: Aug 01, 2012 Date of Influenza Vaccine: Aug 26, 2017 Seasonal Allergies Seasonal Allergies: Yes Past Medical History Surgeries: Appendectomy, Gallbladder, Hysterectomy, Pancreatic Cardiac: High Cholesterol, Hypertension Neurological: Headaches /Migraines, Multiple Sclerosis, Stroke, TIA 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: No Hysterectomy, Menopausal Genitourinary: Bladder Infection Gastrointestinal: Chronic Constipation, Pancreatitis Endocrine: Diabetes, Insulin dep Psychosocial: Anxiety, Depression History of Blood Disorders: No Adverse Reaction to Blood Torres: No Family History Arthritis 19 MOTHER Cardiovascular disease 19 FATHER 19 MOTHER Prostate cancer in father 19 FATHER Heart Disease, CVA Review of Systems Constitutional: see HPI, dizziness, malaise, weakness EENTM: no symptoms reported Respiratory: no symptoms reported Cardiovascular: no symptoms reported Gastrointestinal: diarrhea Genitourinary: no symptoms reported Musculoskeletal: back pain, joint pain Skin: no symptoms reported Psychiatric/Neurological: Anxiety, Depressed, Emotional Problems, Weakness Physical Exam Exam Vital Signs Vital Signs Date Time Temp Pulse Resp B/P (MAP) Pulse Ox O2 Delivery O2 Flow Rate FiO2 08/11/19 18:00 36.9 76 18 141/80 (100) 96 Room Air 08/11/19 10:30 0.00 Capillary Refill : General Appearance: No Apparent Distress, WD/WN, Chronically ill HEENT: PERRL/EOMI, Normal ENT Inspection, Pharynx Normal, Moist Mucous Membranes Neck: Full Range of Motion, Normal Inspection, Non Tender, Supple Respiratory: Chest Non Tender, Lungs Clear, Normal Breath Sounds, No Accessory Muscle Use, No Respiratory Distress Cardiovascular: Regular Rate, Rhythm, No Edema, No Gallop, No JVD, No Murmur Gastrointestinal: Normal Bowel Sounds, No Organomegaly, No Pulsatile Mass, Non Tender, Soft Back: Normal Inspection, No CVA Tenderness, No Vertebral Tenderness Extremity: Normal Capillary Refill, Normal Inspection, Normal Range of Motion (contractures and weakness limits exam), Non Tender, No Calf Tenderness, No Pedal Edema Neurologic/Psychiatric: Alert, Oriented x3, No Motor/Sensory Deficits, Normal Mood/Affect, Motor Weakness (generalized) Skin: Normal Color, Warm/Dry Lymphatic: No Adenopathy Results Results/Procedures Labs Patient resulted labs reviewed. Assessment/Plan Assessment and Plan Assess & Plan/Chief Complaint Assessment: CVA MS severe Chronic debility UTI Loose stools Plan: CVA care BP meds IRF protocol Prognosis overall poor but try to lessen burden at DC home (1) CVA (cerebral vascular accident) (2) Multiple sclerosis Status: Chronic (3) Hypertensive emergency Status: Resolved Resolution Date/Time: 08/09/19 @ 11:07 (4) Left parietal lobe lesion Status: Acute (5) Infarction of thalamus Status: Acute (6) HTN (hypertension) Status: Acute (7) Generalized weakness Status: Acute (8) Insulin dependent diabetes mellitus Status: Chronic (9) Acute kidney injury Status: Acute (10) UTI (urinary tract infection) Status: Acute (11) History of stroke Status: Chronic (12) Hyperlipidemia Status: Chronic (13) Paresthesia of left upper extremity Status: Acute (14) Facial paresthesia Status: Acute (15) Decreased GFR Status: Acute (16) AMS (altered mental status) Status: Acute Post Admission Physician Asses Date seen by provider: Aug 11, 2019 Time seen by provider: 11:30 Admisison Dx: (1) CVA (cerebral vascular accident) The preadmission screen agrees with the post admission assessment that the patient is a good candidate for inpatient rehabilitation. The patient will have a comprehensive program of inpatient rehabilitation with a goal of maximizing level of functional independence prior to discharge home with . The patient will have PT/OT ninety minutes per day, each discipline, five days a week for gait, strengthening, conditioning, balance, ADLs, any patient/family/caregiver training as necessary. Speech therapy to do cognitive assessment and treat as indicated. Rehabilitation nursing to assist with bowel, bladder, skin, wound care, medication administration, pain management. Docket Specialist to assist with discharge planning, community reentry. SCD's for DVT prophylaxis. She appears to be well motivated to participate in three hours of therapy a day. She should be able to tolerate three hours of therapy a day from a medical standpoint. She should benefit from the three hours of therapy a day. She has a reasonable discharge plan, reasonable discharge rehabilitation goals and a supportive family. She has various comorbidities that need to be closely monitored with medications and treatments adjusted on a daily basis as needed. These include: see list Barriers to discharge for this patient who had been independent prior to this are for her to be modified independent to supervision for ADLs and mobility skills prior to discharge home with , so as to lessen the burden of the caregivers. Risks for this patient include: 1. Fall 2. Fracture 3. DVT 4. Pulmonary embolism 5. Wound infection 6. Skin breakdown 7. Contractures 8. Poorly controlled pain 9. Urinary retention 10. UTI 11. Respiratory infection 12. Aspiration Estimated Length of Stay: 14 days Prognosis: Rehab prognosis appears good for goal of discharge home with modified independent to supervision for ADLs and mobility skills. KARLA JOLLEY DO Aug 11, 2019 11:30
--- NOTE | 2019-08-11 13:13 | Occupational Therapy Eval ---
OT Evaluation-General/PLF Medical Diagnosis Admission Date Aug 11, 2019 at 10:30 Medical Diagnosis: acute encephalopathy Onset Date: Aug 11, 2019 Therapy Diagnosis Therapy Diagnosis: impaired self care skills Height/Weight Height (Feet): 5 Height (Inches): 4.00 Weight (Pounds): 119 Weight (Ounces): 0.0 Precautions Precautions/Isolations: Standard Precautions Referral Physician: Jigar Medical History Pertinent Medical History: Atrial Fib, CVA, DM, HTN, Neuropathy Reviewed History: Yes Social History Home: Single Level Current Living Status: Spouse Entry Into Home: Stairs Without Railing Steps Into Home: 2 ADL-Prior Level of Function SCALE: Activities may be completed with or without assistive devices. 1-Kumeqeuqhr-wyirhvc completes the activity by him/herself with no assistance from a helper. 5-Set-up or Clean-up Assistance-helper sets up or cleans up; patient completes activity. [place] assists only prior to or following the activity. 4-Supervision or Touching Assistance-helper provides verbal cues and/or touching/steadying and/or contact guard assistance as patient completes activity. Assistance may be provided throughout the activity or intermittently. 3-Partial/Moderate Assistance-helper does LESS THAN HALF the effort. [place] lifts, holds or supports trunk or limbs, but provides less than half the effort. 2-Substantial/Maximal Assistance-helper does MORE THAN HALF the effort. [place] lifts or holds trunk or limbs and provides more than half the effort. 1-Himdbpwik-vguwyr does ALL the effort. Patient does none of the effort to complete the activity. Or, the assistance of 2 or more helpers is required for the patient to complete the activity. If activity was not attempted, code reason: 7-Patient Refused. 9-Not Applicable-not attempted and the patient did not perform the activity before the current illness, exacerbation or injury. 10-Not Attempted due to Environmental Limitations-(lack of equipment, weather restraints, etc.). 88-Not Attempted due to Medical Conditions or Safety Concerns. ADL PLOF Comments Pt unable to provide information regarding PLOF. Spouse present and states pt is normally able to walk with 4WW with supervision. Spouse states he bathes and dresses pt due to amount of time pt requires to complete task without assist. Pt able to complete toileting with minimal assistance. Self Care: Needed Some Help Functional Cognition: Needed Some Help DME/Equipment: Bath Bench, Bedside Commode, Grab Bars, Shower Hose Ticket Agent, Tub/Shower OT Current Status Subjective Pt sitting in w/c, raymundokes head "no" when asked about pain. Pt has minimal verbalizations during session and is very slow to respond Mental Status/Objective Patient Orientation: Person, Unable to Assess Current Glasses/Contacts: Yes (reading) Hearing Aids: No Dentures/Partials: No Hand Dominance: Right Upper Extremity ROM Pt has difficulty initiating movements during UE assessment and has decreased AROM bilaterally. Impaired ability to participate in ROM testing. Upper Extremity Coordination impaired bilaterally ADL-Treatment ADL-Current Pt sitting in w/c. Spouse present and requests pt shower. Pt sit to stand and tr ansfer to shower chair with max assist. Pt has difficulty advancing LE during transfer. To shower via shower chair. Pt was given a washcloth and attempted to wash face and arms, but unable to complete thoroughly. Pt required assist to wash/dry all areas. Pt Dependent to don bra. Pt begins to thread UE into shirt, but requires assist to pullover head and pull down in back. Assist to thread bilateral LE into Depends and pants. Assist x2 for pant hike; one to assist with standing and one to complete pant hike. Total assist to doff/don socks. Pt attempted to comb hair, but was unable to reach all areas and required assist to complete. Pt unable to complete oral care at this time secondary to fatigue. Pt transferred to bed with max assist. Pt has poor standing posture, shoulders are rounded and head flexed. Able to improve posture slightly with cues. Pt sit to supine with max assist. Pt resting in bed with needs met after session, spouse present. Shower/Bathe Self (QC): 2 Upper Body Dressing (QC): 2 Lower Body Dressing (QC): 1 On/Off Footwear (QC): 1 Toilet Transfer (QC): 2 Education OT Patient Education: Rehab process Teaching Recipient: Patient, Family Teaching Methods: Discussion OT Short Term Goals Short Term Goals 1=Demonstrate adherence to instructed precautions during ADL tasks. 2=Patient will verbalize/demonstrate understanding of assistive devices/modifications for ADL. 3=Patient will improve strength/tolerance for activity to enable patient to perform ADL's. OT Analytical Tech Goals Analytical Tech Goals Time Frame: Sep 01, 2019 Eating (QC): 5 Oral Hygiene (QC): 5 Shower/Bathe Self (QC): 3 Upper Body Dressing (QC): 4 Lower Body Dressing (QC): 3 On/Off Footwear (QC): 3 Toileting Hygiene (QC): 4 (CGA) Toilet/Commode Transfer (QC): 4 (CGA) Additional Goals: 1-Demonstrate ADL Tasks, 2-Verbalize Understanding, 3-Improve Strength/Shiv 1=Demonstrate adherence to instructed precautions during ADL tasks. 2=Patient will verbalize/demonstrate understanding of assistive devices/modifications for ADL. 3=Patient will improve strength/tolerance for activity to enable patient to pe rform ADL's. OT Education/Plan Problem List/Assessment Assessment: Decreased Activ Tolerance, Decreased Safety Aware, Decreased UE Strength, Dependent Transfers, Impaired Coordination, Impaired Funct Balance, I mpaired I ADL's, Impaired Self-Care Skills Pt to benefit from skilled OT intervention for ADL training, transfers, strengthening, and safety education to maximize level of function and decrease caregiver burden. Discharge Recommendations Plan/Recommendations: Continue POC Treatment Plan/Plan of Care Treatment,Training & Education: Yes Patient would benefit from OT for education, treatment and training to promote independence in ADL's, mobility, safety and/or upper extremity function for ADL's. Plan of Care: ADL Retraining, Functional Mobility, Group Exercise/Act as Ind, UE Funct Exercise/Act, UE Neuromus Re-Ed/Coord Treatment Duration: Sep 01, 2019 Frequency: At least 5 of 7 days/Wk (IRF) Estimated Hrs Per Day: 1.5 hours per day Rehab Potential: Fair Time/GCodes Start Time: 10:45 Stop Time: 12:00 Total Time Billed (hr/min): 75 Billed Treatment Time 1 visit, EVM(15minutes), ADLx4(60minutes) TARIQ MCNULTY OT Aug 11, 2019 13:13
--- NOTE | 2019-08-11 13:50 | ST Cognitive Linguistic Eval ---
Speech Evaluation-General Medical Diagnosis acute encephalopathy Onset Date: Aug 11, 2019 Therapy Diagnosis Therapy Diagnosis: Cognitive-communication Precautions Precautions: Fall Precautions/Isolations: Fall Prevention, Standard Precautions Referral Referring Physician: Dr. Kimball Reason for Referral: Evaluation/Treatment Medical History Pertinent Medical History: Atrial Fib, CVA, DM, HTN, Neuropathy Current History Acute Encephalopathy Reviewed History: Yes Social History Home: Single Level Current Living Status: Spouse Speech PLF-Current Status Prior Level of Function Patient lived at home with her where she was dependent on him for most of her daily needs. Subjective The patient was pleasant and cooperative with the cognitive assessment. The patient was tired after her transfer from the 4th floor and her shower with the OT. Language Eval: Auditory Comprehends Simple Yes/No Ques: Functional Indent/Objects Multiple [place]: Functional Ident/Pics in Multiple [place]: Functional Follows 1-Step Commands: Functional Follows Complex Directions: Mild Follows General Conversations: Mild Language Eval: Verbal Language Completes Spontaneous Greeting: Functional Produces Auto, Serial Info: Mild Imitates Simple Words/Phrases: Mild Word Finding: Mild Requests Basic Needs: Mild States Basic Personal Info: Mild Expresses Complex Ideas: Moderate Objective Cognitive Domain Attention: Mild Memory: Moderate Problem Solving: Moderate Executive Functions: Moderate Visuospatial Skills: Mild Composite Severity Rating: Moderate Clock Drawing Severity Rating: Moderate Objective Formal/Standardized Tests [facility] Mental Status ([facility]) Results 13/30, Moderate level of function Oral Motor/Speech Production Patient's speech is slow, she is able to speak y/n and short phrases at the most at this time. Impression The patient is a pleasant 68 year old woman who was admitted to the ARU s/p Acute Encehalopathy. Patient is known to this clinician from previous admissions to the ARU. Patient has been placed in rehab, SNF's, returned home and hospitalized multiple times over the past year. The patient has a history of dysphagia and difficulty with speech as well. The patient has been receiving speech therapy with focus on speech production and dysphagia while in the ICU and acute settings. Patient was evaluated with the [facility] at bedside with a score of 13/30. Her score is within a moderate deficit with cognitive function. The patient will receive skilled ST for speech and cognitive deficits. Speech Patient Assess Expression of Ideas/Wants: Rarely/Never (1) Understanding Verbal Content: Usually Understands (3) Brief Interview-Mental Status: Yes Repetition of Three Words: Two (2) Temporal Orientation: Year: Correct (3) Temporal Orientation: Month: Accurate within 5 days(2) Temporal Orientation: Day: Correct (1) Recall : Wear to say "Sock": Yes,after cueing (1) Recall : Color: No, could not recall (0) Recall : Bed: No, could not recall (0) Memory/Recall Ability: Current season, Staff names and faces, That he or she is in a hsp/hsp unit Speech Short Term Goals Short Term Goals Short Term Goals 1) Patient will complete cognitive tasks at 80% or greater with minimal cuing. 2) Patient will complete speech tasks at 80% or greater with minimal cuing. Speech Residential Goals County Administrator Goals Patient will improve speech and cognitive level of function in order to meet her communication and independence needs. Speech-Plan Patient/Family Goals Patient/Family Goals: The patient's states he is in hopes the patient will be able to return home post rehab. This will be determined at a later date depending on the patient's progress Treatment Plan Speech Therapy Treatment Plan: Continue Plan of Care The patient will receive skilled ST for cognition and speech. Treatment Duration: Aug 25, 2019 Frequency: 5 times per week Estimated Hrs Per Day: .5 hour per day Rehab Potential: Fair Barriers to Learning: Patient has had a complex medical year with placement in SNF's and multiple hospital stays. Pt/Family Agrees to Plan: Yes Safety Risks/Education Teaching Recipient: Patient, Significant Other Teaching Methods: Discussion Response to Teaching: Verbalize Understanding Education Topics Provided: Safety within her room and communication of her wants/needs. Time Speech Therapy Time In: 12:25 Speech Therapy Time Out: 12:40 Total Billed Time: 15 Billed Treatment Time 1, SPSNDCOMP HAILE Hernández Aug 11, 2019 13:50
--- NOTE | 2019-08-11 14:06 | Progress Note ---
AUSTIN [facility]ENSON [facility] 08/11/19 1406: Progress Note CC: UTI w/ confusion, Stroke, Multiple Sclerosis HPI: Pt was not able to communicate very well most of the interview. She did respond yes and no to several questions she was not able to state her name or birthday. Her was the primary historian. He stated that she had been in the hospital and rehab unit previously from which she was able to return home using a walker. She was brought in to the hospital this visit for a UTI that was causing confusion along with hypertension. During her time in the hospital she had an MRI completed that showed evidence of multiple sclerosis with lesions. The MRI also showed she had a stroke. She is unable to communicate what her curr ent struggles are regarding her neurological deficiencies. She is currently unable/unmotivated to sit up in bed unassisted. She reports being able to walk with a walker before entering the hospital and would like to be able to return to that level of function. Her states that she previously had similar symptoms that appeared to be related to her metformin causing lactic acid and her symptoms reportedly became better. The seemed to not fully understand the diagnosis of MS stating that metformin lactic acidosis can mimic MS. The patient was able to understand most of the questions, but not able to respond to questions do to inability to find words. Neuro Exam: EOMI She did not perform the CN7 exam due to inability to understand instructions w ith demonstration provided or possibly lack of motivation She did not rotate her head and when asked why she responded yes to the question of pain Sensation grossly intact in upper and lower extremities bilaterally She was unable to verbalize the discrimination between dull and sharp sensation, but did appear to be able to tell the difference Muscle strength was difficult to assess Hand sewer separation designer was 5/5 on right, but 4/5 on left Bilateral forearm flexion and extension 3/5. Difficult to assess further because she did not attempt to provide resistance Bilateral abduction of shoulder 2/5 Plantar flexion and dorsiflexion of bilateral feet 5/5 Bilateral hip flexion and extension 4/5 KARLA JOLLEY DO 08/11/197: Supervisory-Addendum Brief Verification & Attestation Participated in pt care: history, MDM, physical Personally performed: exam, history, MDM, supervision of care Care discussed with: Medical Student Procedures: n/a Results interpretation: Verified all documentation Verification and Attestation of Medical Student E/M Service A medical student performed and documented this service in my presence. I reviewed and verified all information documented by the medical student and made modifications to such information, when appropriate. I personally performed the physical exam and medical decision making. Karla Jolley, Aug 11, 2019,21:28 [facility]SON [facility] Aug 11, 2019 14:06 KARLA JOLLEY DO Aug 11, 2019 21:28
[2019-08-11] MEDS: cloNIDine 0.2 MG (CATAPRES) TAB PO SCH ×2 (14:39→21:15)
--- NOTE | 2019-08-11 15:02 | Occupational Ther Daily Note ---
OT Current Status-Daily Note Subjective Pt alert, sitting in w/c. Took over care from PT then left in care of PT after session. Pt agrees to therapy. Mental Status/Objective Patient Orientation: Person, Place, Non-Verbal/Aphasic Attachments: IV ADL-Treatment Therapy Code Descriptions/Definitions Functional [place] Measure: 0=Not Assessed/NA 4=Minimal Assistance 1=Total Assistance 5=Supervision or Setup 2=Maximal Assistance 6=Modified [place] 3=Moderate Assistance 7=Complete IndependenceSCALE: Activities may be completed with or without assistive devices. 6-Hyysihebiw-ngzjshy completes the activity by him/herself with no assistance from a helper. 5-Set-up or Clean-up Assistance-helper sets up or cleans up; patient completes activity. [place] assists only prior to or following the activity. 4-Supervision or Touching Assistance-helper provides verbal cues and/or touching/steadying and/or contact guard assistance as patient completes activity. Assistance may be provided throughout the activity or intermittently. 3-Partial/Moderate Assistance-helper does LESS THAN HALF the effort. [place] lifts, holds or supports trunk or limbs, but provides less than half the effort. 2-Substantial/Maximal Assistance-helper does MORE THAN HALF the effort. [place] lifts or holds trunk or limbs and provides more than half the effort. 7-Bidrebctk-ffcane does ALL the effort. Patient does none of the effort to complete the activity. Or, the assistance of 2 or more helpers is required for the patient to complete the activity. If activity was not attempted, code reason: 7-Patient Refused. 9-Not Applicable-not attempted and the patient did not perform the activity before the current illness, exacerbation or injury. 10-Not Attempted due to Environmental Limitations-(lack of equipment, weather restraints, etc.). 88-Not Attempted due to Medical Conditions or Safety Concerns. Oral Hygiene (QC): 4 (Pt required set up and required assist to hand supplies. Pt able to hold onto electric toothbrush and brush teeth. ) Took over care from PT. After therapy, pt sitting in w/c, PT took over care of pt. All needs met. OT Short Term Goals Short Term Goals 1=Demonstrate adherence to instructed precautions during ADL tasks. 2=Patient will verbalize/demonstrate understanding of assistive devices/modifications for ADL. 3=Patient will improve strength/tolerance for activity to enable patient to perform ADL's. OT Nursing Home Goals Biomedical Equipment Specialist Goals Time Frame: Sep 01, 2019 Eating (QC): 5 Oral Hygiene (QC): 5 Shower/Bathe Self (QC): 3 Upper Body Dressing (QC): 4 Lower Body Dressing (QC): 3 On/Off Footwear (QC): 3 Toileting Hygiene (QC): 4 (CGA) Toilet/Commode Transfer (QC): 4 (CGA) Additional Goals: 1-Demonstrate ADL Tasks, 2-Verbalize Understanding, 3- ImproveStrength/Shiv 1=Demonstrate adherence to instructed precautions during ADL tasks. 2=Patient will verbalize/demonstrate understanding of assistive devices/modifications for ADL. 3=Patient will improve strength/tolerance for activity to enable patient to perform ADL's. OT Education/Plan Problem List/Assessment Assessment: Decreased Activ Tolerance, Decreased UE Strength, Impaired Cognition, Impaired Coordination, Impaired Funct Balance, Impaired I ADL's, Impaired Self-Care Skills, Restricted Funct UE ROM Pt to benefit from skilled OT intervention for ADL training, transfers, strengthening, and safety education to maximize level of function and decrease caregiver burden. Discharge Recommendations Plan/Recommendations: Continue POC Treatment Plan/Plan of Care Patient would benefit from OT for education, treatment and training to promote independence in ADL's, mobility, safety and/or upper extremity function for ADL's. Plan of Care: ADL Retraining, Functional Mobility, Group Exercise/Act as Ind, UE Funct Exercise/Act, UE Neuromus Re-Ed/Coord Treatment Duration: Sep 01, 2019 Frequency: At least 5 of 7 days/Wk (IRF) Estimated Hrs Per Day: 1.5 hours per day Rehab Potential: Fair Time/GCodes Start Time: 14:15 Stop Time: 14:30 Total Time Billed (hr/min): 15 Billed Treatment Time 1 visit-ADL 1 (15 min) JORGE TERRY Aug 11, 2019 15:02
--- NOTE | 2019-08-11 15:04 | Physical Therapy Daily Note ---
PT Daily Note-Current Subjective Pt. with broken verbalization, some communication seems appropriate but pt. struggles 75% of time. Pain Location: No Pain Reported Comment: denies pain when asked Mental Status Patient Orientation: [place] Transfers SCALE: Activities may be completed with or without assistive devices. 4-Fvhngcmczo-rbaqvby completes the activity by him/herself with no assistance from a helper. 5-Set-up or Clean-up Assistance-helper sets up or cleans up; patient completes activity. [place] assists only prior to or following the activity. 4-Supervision or Touching Assistance-helper provides verbal cues and/or touching/steadying and/or contact guard assistance as patient completes activity. Assistance may be provided throughout the activity or intermittently. 3-Partial/Moderate Assistance-helper does LESS THAN HALF the effort. [place] lifts, holds or supports trunk or limbs, but provides less than half the effort. 2-Substantial/Maximal Assistance-helper does MORE THAN HALF the effort. [place] lifts or holds trunk or limbs and provides more than half the effort. 7-Zxxblkugn-ardygz does ALL the effort. Patient does none of the effort to complete the activity. Or, the assistance of 2 or more helpers is required for the patient to complete the activity. If activity was not attempted, code reason: 7-Patient Refused. 9-Not Applicable-not attempted and the patient did not perform the activity before the current illness, exacerbation or injury. 10-Not Attempted due to Environmental Limitations-(lack of equipment, weather restraints, etc.). 88-Not Attempted due to Medical Conditions or Safety Concerns. Transfers (B, C, W/C): 2 Roll Left to Right (QC): 2 Sit to Lying (QC): 2 Sit to Stand (QC): 3 Chair/Mzl-mi-Tlxzw Xfer(QC): 2 Weight Bearing Right Lower Extremity: Right Weight Bearing/Tolerated Left Lower Extremity: Left Weight Bearing/Tolerated Gait Training Does the Patient Walk?: Yes Gait Assistive Device: Parallel Bars 2-3 very slow small steps with assist to wt shift left and right and some assist to advance LEs Wheelchair Training Type of Wheelchair: Manual pt. invited to propel w/c and was guided [place] but did not propel w/c Exercises Supine Ex: Bridging, Ankle pumps, Rolling, Heel Slides, Scooting, Hip abd/add Supine Reps: 12 (assisted) Seated Therapy Exercises: Sit to stand, Long arc quads, Hip abd/add Seated Reps: 15 Standing: Heel/toe raises, Marching, Sit to Stand Standing Reps: 8 emphasis on SPTs , pt. follows commands very slowly Assessment Current Status: Good Progress poor response, approx 40% of time pt. responds verbally or physically to instruction. PT Food Service Director Goals Food Service Director Goals PT Snf Goals Time Frame: Sep 08, 2019 Sit to Lying (QC): 5 Lying-Sitting on Side/Bed(QC): 5 Sit to Stand (QC): 5 Roll Left to Right (QC): 5 Chair/Kie-se-Kzkhp Xfer(QC): 5 Car Transfer (QC): 5 Does the Patient Walk: No and Walking Goal IS indicated Walk 10 feet (QC): 4 Walk 10ft-Uneven Surface(QC): 4 Walk 50ft with 2 Turns (QC): 4 Walk 150 ft (QC): 4 Gait Assistive Device: FWW Wheel 50 feet with 2 turns (QC: 4 1 Step (curb) (QC): 3 4 Steps (QC): 88 12 Steps (QC): 88 Picking up an Object (QC): 88 PT Plan Treatment/Plan Treatment Plan: Continue Plan of Care Treatment Plan: Bed Mobility, Education, Functional Activity Shiv, Functional Strength, Group Therapy, Gait, Safety, Therapeutic Exercise, Transfers Treatment Duration: Sep 08, 2019 Frequency: At least 5 of 7 days/Wk (IRF) Estimated Hrs Per Day: 1.5 hours per day Patient and/or Family Agrees t: Yes Safety Risks/Education Patient Education: Gait Training, Transfer Techniques, Correct Positioning, Disease Process, Safety Issues Teaching Recipient: Patient Teaching Methods: Demonstration, Discussion Response to Teaching: Unable to Return Demonstration, Unable to Comprehend, Reinforcement Needed Time/GCodes Time In: 1345 (1430) Time Out: 1415 Total Billed Treatment Time: 60 (1500) Total Billed Treatment 1,FA40m,EX20m WILLIAM JULIAN FINAL FINISHER FORGING DIES Aug 11, 2019 15:04
[2019-08-11] MEDS: inSUlin ASPART (NovoLOG) 1 UNIT/0.01 ML (CHARGE PER UNIT) SC SCH ×2 (16:35→21:53)
[2019-08-11 18:00] VITALS: BP 141/80
[2019-08-11] MEDS: DOCUSATE SODIUM 100 MG (COLACE) CAP PO SCH (21:15)
[2019-08-11] MEDS: meTOprolol TARTRATE 50 MG (LOPRESSOR) TAB PO SCH (21:15)
[2019-08-11] MEDS: SENNA W/DOCUSATE (SENOKOT S) TABLET PO SCH (21:16)
[2019-08-12 05:51] VITALS: BP 169/92
[2019-08-12] MEDS: inSUlin ASPART (NovoLOG) 1 UNIT/0.01 ML (CHARGE PER UNIT) SC SCH ×4 (05:54→20:54)
[2019-08-12] MEDS ORDERED: PATIENT MAY USE OWN MED,SINGLE MED PO SCH (09:00)
[2019-08-12] MEDS: meTOprolol TARTRATE 50 MG (LOPRESSOR) TAB PO SCH ×2 (09:46→20:35)
[2019-08-12] MEDS: LOSARTAN 100 MG (COZAAR) TABLET PO SCH (09:46)
[2019-08-12] MEDS: CLOPIDOGREL 75 MG (PLAVIX) TABLET PO SCH (09:47)
[2019-08-12] MEDS: DOCUSATE SODIUM 100 MG (COLACE) CAP PO SCH ×2 (09:47→16:21)
[2019-08-12] MEDS: HYDROCHLOROTHIAZIDE 25 MG (HCTZ) TAB PO SCH (09:47)
[2019-08-12] MEDS: amLODIPine 10 MG (NORVASC) TAB PO SCH (09:47)
[2019-08-12] MEDS: SENNA W/DOCUSATE (SENOKOT S) TABLET PO SCH ×2 (09:47→16:21)
[2019-08-12] MEDS: ASPIRIN E.C. 81 MG (ECOTRIN) TAB PO SCH (09:47)
[2019-08-12] MEDS: cloNIDine 0.2 MG (CATAPRES) TAB PO SCH ×3 (09:47→20:35)
--- NOTE | 2019-08-12 11:10 | Physical Therapy Daily Note ---
PT Daily Note-Current Subjective agress to PT. Wants to get up to the chair. Transfers SCALE: Activities may be completed with or without assistive devices. 6-Fojnpzdtir-jlnwybx completes the activity by him/herself with no assistance from a helper. 5-Set-up or Clean-up Assistance-helper sets up or cleans up; patient completes activity. [place] assists only prior to or following the activity. 4-Supervision or Touching Assistance-helper provides verbal cues and/or touching/steadying and/or contact guard assistance as patient completes activity. Assistance may be provided throughout the activity or intermittently. 3-Partial/Moderate Assistance-helper does LESS THAN HALF the effort. [place] lifts, holds or supports trunk or limbs, but provides less than half the effort. 2-Substantial/Maximal Assistance-helper does MORE THAN HALF the effort. [place] lifts or holds trunk or limbs and provides more than half the effort. 7-Qxwaltlmc-ftncpd does ALL the effort. Patient does none of the effort to complete the activity. Or, the assistance of 2 or more helpers is required for the patient to complete the activity. If activity was not attempted, code reason: 7-Patient Refused. 9-Not Applicable-not attempted and the patient did not perform the activity before the current illness, exacerbation or injury. 10-Not Attempted due to Environmental Limitations-(lack of equipment, weather restraints, etc.). 88-Not Attempted due to Medical Conditions or Safety Concerns. Weight Bearing Right Lower Extremity: Right Weight Bearing/Tolerated Left Lower Extremity: Left Weight Bearing/Tolerated Treatments Pt incont of bowel. Rolling in bed with max assist to complete side to side to clean BM> Sup to sit with mod assist and heavy cues to sequence. Sit to stand with CGA. Pt ambulated x 25 ft with FWW with min assist. Up in chair post treatment with needs me.t Assessment Current Status: Good Progress Improved sit to stand and gait since evaluated by this therapist yesterday. Very slow with all movement. PT Entry Level Staff Accountant Goals Jail Goals PT Entry Level Staff Accountant Goals Time Frame: Sep 08, 2019 Sit to Lying (QC): 5 Lying-Sitting on Side/Bed(QC): 5 Sit to Stand (QC): 5 Roll Left to Right (QC): 5 Chair/Hra-iz-Wsmpz Xfer(QC): 5 Car Transfer (QC): 5 Does the Patient Walk: No and Walking Goal IS indicated Walk 10 feet (QC): 4 Walk 10ft-Uneven Surface(QC): 4 Walk 50ft with 2 Turns (QC): 4 Walk 150 ft (QC): 4 Gait Assistive Device: FWW Wheel 50 feet with 2 turns (QC: 4 1 Step (curb) (QC): 4 4 Steps (QC): 4 12 Steps (QC): 88 Picking up an Object (QC): 88 PT Plan Problem List Problem List: Activity Tolerance, Functional Strength, Safety, Balance, Gait, Transfer, Bed Mobility Treatment/Plan Treatment Plan: Continue Plan of Care Treatment Plan: Bed Mobility, Education, Functional Activity Shiv, Functional Strength, Group Therapy, Gait, Safety, Therapeutic Exercise, Transfers Treatment Duration: Sep 08, 2019 Frequency: At least 5 of 7 days/Wk (IRF) Estimated Hrs Per Day: 1.5 hours per day Patient and/or Family Agrees t: Yes Safety Risks/Education Patient Education: Safety Issues Teaching Recipient: Patient, Family Teaching Methods: Discussion Response to Teaching: Reinforcement Needed Discharge Recommendations Therapy Discharge Recommendati: Post Acute PT Time/GCodes Time In: 1045 Time Out: 1109 Total Billed Treatment Time: 24 Total Billed Treatment visit FA 24 JORGE WINCHESTER PT Aug 12, 2019 11:10
--- NOTE | 2019-08-12 13:02 | PM&R Progress Note ---
Subjective HPI/CC On Admission Date Seen by Provider: Aug 12, 2019 Time Seen by Provider: 11:00 Chief complaint: CVA HPI: This is a 68yoWF known to me from 10 months ago in inpatient rehab for one month following a stroke-like condition that caused progression of multiple scrlerosus who resides at home with her who is very involved in her care, who presents to the inpatient rehab in need of rehabilitation following a stroke and subsequent weakness. Imaging scan confirmed stroke. At this current time she is on a modified diet and bowels are moving a little bit too loosely but she is motivated and ready to be admitted to inpatient rehab to begin a recovery to ultimately return home to lessen the burden on her . CC/HPI per YAIR Duarte CC: UTI w/ confusion, Stroke, Multiple Sclerosis HPI: Pt was not able to communicate very well most of the interview. She did respond yes and no to several questions she was not able to state her name or birthday. Her was the primary historian. He stated that she had been in the hospital and rehab unit previously from which she was able to return home using a walker. She was brought in to the hospital this visit for a UTI that was causing confusion along with hypertension. During her time in the hospital she had an MRI completed that showed evidence of multiple sclerosis with lesions. The MRI also showed she had a stroke. She is unable to communicate what her current struggles are regarding her neurological deficiencies. She is currently unable/unmotivated to sit up in bed unassisted. She reports being able to walk with a walker before entering the hospital and would like to be able to return to that level of function. Her states that she previously had similar symptoms that appeared to be related to her metformin causing lactic acid and her symptoms reportedly became better. The seemed to not fully understand the diagnosis of MS stating that metformin lactic acidosis can mimic MS. The patient was able to understand most of the questions, but not able to respond to questions do to inability to find words. Neuro Exam: EOMI She did not perform the CN7 exam due to inability to understand instructions with demonstration provided or possibly lack of motivation She did not rotate her head and when asked why she responded yes to the question of pain Sensation grossly intact in upper and lower extremities bilaterally She was unable to verbalize the discrimination between dull and sharp sensation, but did appear to be able to tell the difference Muscle strength was difficult to assess Hand funeral director's assistant was 5/5 on right, but 4/5 on left Bilateral forearm flexion and extension 3/5. Difficult to assess further because she did not attempt to provide resistance Bilateral abduction of shoulder 2/5 Plantar flexion and dorsiflexion of bilateral feet 5/5 Bilateral hip flexion and extension 4/5 Subjective/Events-last exam at the bedside helps her answer most questions Patient denies any new issues Loose stools continue so will minimize laxatives once again Elevated blood pressure before meds We'll check labs on Wednesday Overall denies any new pain Was able to walk to the bathroom and was very pleased with those results Overall feeling much better since stroke 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 with [employer] associate therapy notes Review of Systems General: Fatigue Neurological: Weakness, Numbness, Incoordination Objective Exam Vital Signs Vital Signs Date Time Temp Pulse Resp B/P (MAP) Pulse Ox O2 Delivery O2 Flow Rate FiO2 08/12/19 09:00 98 Room Air 0.00 08/12/19 05:51 36.5 67 18 169/92 (117) Capillary Refill : General Appearance: No Apparent Distress, WD/WN, Chronically ill HEENT: PERRL/EOMI, Normal ENT Inspection, Pharynx Normal, Moist Mucous Membranes Neck: Full Range of Motion, Normal Inspection, Non Tender, Supple Respiratory: Chest Non Tender, Lungs Clear, Normal Breath Sounds, No Accessory Muscle Use, No Respiratory Distress Cardiovascular: Regular Rate, Rhythm, No Edema, No Gallop, No JVD, No Murmur Gastrointestinal: Normal Bowel Sounds, No Organomegaly, No Pulsatile Mass, Non Tender, Soft Back: Normal Inspection, No CVA Tenderness, No Vertebral Tenderness Extremity: Normal Capillary Refill, Normal Inspection, Normal Range of Motion (contractures and weakness limits exam), Non Tender, No Calf Tenderness, No Pedal Edema Neurologic/Psychiatric: Alert, Oriented x3, No Motor/Sensory Deficits, Normal Mood/Affect, Motor Weakness (generalized) Skin: Normal Color, Warm/Dry Lymphatic: No Adenopathy Results/Procedures Lab Patient resulted labs reviewed. FIM Transfers Therapy Code Descriptions/Definitions Functional [place] Measure: 0=Not Assessed/NA 4=Minimal Assistance 1=Total Assistance 5=Supervision or Setup 2=Maximal Assistance 6=Modified [place] 3=Moderate Assistance 7=Complete IndependenceSCALE: Activities may be completed with or without assistive devices. 2-Wxxackfebt-mypstdi completes the activity by him/herself with no assistance from a helper. 5-Set-up or Clean-up Assistance-helper sets up or cleans up; patient completes activity. Lamar assists only prior to or following the activity. 4-Supervision or Touching Assistance-helper provides verbal cues and/or touching/steadying and/or contact guard assistance as patient completes activity. Assistance may be provided throughout the activity or intermittently. 3-Partial/Moderate Assistance-helper does LESS THAN HALF the effort. Lamar lifts, holds or supports trunk or limbs, but provides less than half the effort. 2-Substantial/Maximal Assistance-helper does MORE THAN HALF the effort. Lamar lifts or holds trunk or limbs and provides more than half the effort. 0-Mrqhftmer-kvrjst does ALL the effort. Patient does none of the effort to complete the activity. Or, the assistance of 2 or more helpers is required for the patient to complete the activity. If activity was not attempted, code reason: 7-Patient Refused. 9-Not Applicable-not attempted and the patient did not perform the activity before the current illness, exacerbation or injury. 10-Not Attempted due to Environmental Limitations-(lack of equipment, weather restraints, etc.). 88-Not Attempted due to Medical Conditions or Safety Concerns. Transfers (B, C, W/C) (FIM): 2 Roll Left to Right (QC): 2 Sit to Lying (QC): 2 Sit to Stand (QC): 3 Chair/Feo-gc-Mttyf Xfer(QC): 2 Car Transfer (QC): 2 Gait Training Does the Patient Walk?: Yes Walk 10 feet (QC): 88 (unable to initiate gait this visit. ) Walk 50 ft with 2 Turns(QC): 88 Walk 150 ft (QC): 88 Walking 10ft/uneven surface-QC: 88 Gait Assistive Device: Parallel Bars Wheelchair Training Does the Pt Use a Wheelchair?: Yes Wheel 50 ft with 2 turns (QC): 2 (depenedent for wc mobiltiy at this time due to functional weakness) Wheel 150 ft (QC): 2 Type of Wheelchair: Manual Stair Training 1 Step (curb) (QC): 88 4 Steps (QC): 88 12 Steps (QC): 88 Balance Picking up an Object (QC): 88 ADL-Treatment Oral Hygiene (QC): 4 (Pt required set up and required assist to hand supplies. Pt able to hold onto electric toothbrush and brush teeth. ) Shower/Bathe Self (QC): 2 Upper Body Dressing (QC): 2 Lower Body Dressing (QC): 1 On/Off Footwear (QC): 1 Toilet Transfer (QC): 2 Assessment/Plan Assessment and Plan Assess & Plan/Chief Complaint Assessment: CVA MS severe Chronic debility UTI Loose stools holding laxatives Plan: CVA care BP meds IRF protocol Prognosis overall poor but try to lessen burden at DC home (1) CVA (cerebral vascular accident) (2) Infarction of thalamus Status: Acute (3) Left parietal lobe lesion Status: Acute (4) Hypertensive emergency Status: Resolved Resolution Date/Time: 08/09/19 @ 11:07 (5) Acute kidney injury Status: Acute (6) History of stroke Status: Chronic (7) HTN (hypertension) Status: Acute (8) Multiple sclerosis Status: Chronic (9) UTI (urinary tract infection) Status: Acute (10) Hyperlipidemia Status: Chronic (11) Generalized weakness Status: Acute (12) Insulin dependent diabetes mellitus Status: Chronic (13) Hypomagnesemia Status: Acute (14) Hypokalemia Status: Acute (15) Confusion FAIZA JOLLEY DO Aug 12, 2019 13:02
--- NOTE | 2019-08-12 13:03 | Individualized Plan of Care ---
Individualized Plan of Care Rehab Nursing IPOC Order Admission Date Aug 11, 2019 at 10:30 Current Orders Orders Admission Order(Inpt,Obs,Sdc) (08/11/19 10:18) Vital Signs: Per Unit Policy ( 08,16,00 (08/11/19 10:18) Chargeback Specialist-Inpt Rehab Con (08/11/19 10:18) Rehab Nursing Orders-Ipoc (08/11/19 10:18) Physical Therapy Rehab Orders (08/11/19 10:18) Occupational Therapy Rehab Ord (08/11/19 10:18) Speech Therapy Rehab Orders (08/11/19 10:18) Intake & Output 06,14,22 (08/11/19 10:18) Precautions (Aru) (08/11/19 10:18) Weekly Weight WEEK (08/11/19 10:18) Rehab-Intensity Of Therapy (08/11/19 10:18) Initiate Admission Nursing Pro .admission (08/11/19 10:18) Admission Arrival Bed Request (08/11/19 10:30) Code/Resuscitation (08/11/19 11:11) Follow-Up Appointment (08/11/19 11:11) Sequential Compression Device Q4H (08/11/19 11:11) Weight Bearing Status (08/11/19 11:11) Dys2 Mechanically Altered (08/11/19 Dinner) Special Room Service Request (08/11/19 11:11) Acetaminophen Tablet/Caplet (Tylenol T (08/11/19 11:15) Aspirin Enteric Coated Tablet (Ecotrin T (08/12/19 09:00) Atorvastatin Tablet (Lipitor) (08/11/19 21:00) Clopidogrel Tablet (Plavix Tablet) (08/12/19 09:00) Docusate Sodium Capsule (Colace Capsule) (08/11/19 21:00) Fluticasone Nasal Beals (Flonase Nasal S (08/11/19 11:15) Hydrochlorothiazide Cap/Tablet (Hctz Cap (08/12/19 09:00) Losartan Tablet (Cozaar Tablet) (08/12/19 09:00) Melatonin Tablet (Melatonin Tablet) (08/11/19 11:15) Ondansetron Injection (Zofran Injectio (08/11/19 11:15) Ondansetron Oral Dissolve Tab (Zofran (08/11/19 11:15) Patient May Use Own Med,Single (Patient (08/12/19 09:00) Polyethylene Glycol Powder Pkt (Miralax (08/11/19 11:15) Senna S Tablet (Senokot S Tablet) (08/11/19 21:00) Amlodipine Tablet (Norvasc Tablet) (08/12/19 09:00) Cetirizine Tablet (Non Form) (Zyrtec Tab (08/12/19 09:00) Clonidine Tablet (Catapres Tablet) (08/11/19 13:00) Insulin Aspart (Novolog) (Novolog (Charg (08/11/19 16:00) Insulin Determir (Per Unit) (Levemir (Pe (08/11/19 21:00) Metoprolol Tartrate (Ir) Tab (Lopressor (08/11/19 21:00) Oxycodone Immediate Rel Tablet (Oxyir Ta (08/11/19 11:15) Consult Cardiology (08/11/19 11:11) Consult Pulmonology (08/11/19 11:11) Rt Request For Service (08/11/19 11:11) Ambulate 08,12,20 (08/11/19 14:10) Sequential Compression Device Q4H (08/11/19 14:10) Dvt/Vte Risk - Notifiy Physici Q4H (08/11/19 14:10) Patient Visit (08/11/19 ) Pt Eval Moderate Complexity (08/11/19 ) Patient Visit (08/11/19 ) Speech Sound Lang Comp (08/11/19 ) Patient Visit (08/11/19 ) Functional Activities, Ea 15 (08/11/19 ) Exercise Therap, Ea 15 Min (08/11/19 ) Patient Visit (08/12/19 ) Functional Activities, Ea 15 (08/12/19 ) Rehab Nursing Orders: Ongoing Assess. of Cognitive Status, Ongoing Assess. of Function Status, Bladder Management, Bladder Scan, Bladder Training, Bowel Management, Bowel Training, Disease Management & Educaiton, DVT Prophylaxis, Fall Prevention, Fluid/Electrolyte/Nutrition Mgmt, Infection Prevention, Me dication Management & Education, Management of Risks & Complications, Management of Skin Intergrity, Nutrition Management, Pain Management, Patient/Family Support, Safety Management, Swallow Precautions Intensity of Therapy to be met Patient to be seen: Min.3h per day/5 of 7d PT IPOC Problem List: Activity Tolerance, Functional Strength, Safety, Balance, Gait, Transfer, Bed Mobility Treatment Plan: Continue Plan of Care Bed Mobility, Education, Functional Activity Shiv, Functional Strength, Group Therapy, Gait, Safety, Therapeutic Exercise, Transfers Treatment Duration: Sep 08, 2019 Frequency: At least 5 of 7 days/Wk (IRF) Estimated Hrs Per Day: 1.5 hours per day OT IPOC Problems: Decreased Activ Tolerance, Decreased UE Strength, Impaired Cognition, Impaired Coordination, Impaired Funct Balance, Impaired I ADL's, Impaired Self- Care Skills, Restricted Funct UE ROM OT Treatment, Training and Edu: Yes OT Problems Pt to benefit from skilled OT intervention for ADL training, transfers, strengthening, and safety education to maximize level of function and decrease caregiver burden. Plan of Care: ADL Retraining, Functional Mobility, Group Exercise/Act as Ind, UE Funct Exercise/Act, UE Neuromus Re-Ed/Coord Treatment Duration: Sep 01, 2019 Frequency: At least 5 of 7 days/Wk (IRF) Estimated Hrs Per Day: 1.[address] IPOC Speech Therapy Treatment Plan: Continue Plan of Care Treatment Duration: Aug 25, 2019 Frequency: 5 times per week Estimated Hrs Per Day: .5 hour per day Chargeback Specialist/Case Mgmt Chargeback Specialist/Case Managemen: Discharge Planning Dietitian/Muffle Operator Dietitian/Muffle Operator to monitor nutritional status and make changes and/or recommendations as needed and work with speech pathology on dietary upgrades as the occur. Physician IPOC Medical Issues being managed closely and that require the 24 hour availability of a physician: Patient with severe MS and recurrent stroke with acute renal failure and labile hypertension malignant type will require close monitoring at high risk for decompensation Medical Issues: Bowel/Bladder Function, DVT Prophylaxis, Falls Precautions, Fluid/Electrolyte/Nutrition Balance, Infection Protection, Pain Management, Swallowing Precautions Brief Synthesis of Preadmission Screen, Post-Admission Evaluation, and Therapy Evaluations: PT will help ambulate and fall prevention to lessen burden for her at home OT we'll focus on regaining independent ADLs to lessen the burden for at home Medical Prognosis: fair Anticipated Length of Stay: 14 days FAIZA JOLLEY DO Aug 12, 2019 13:03
[2019-08-12 18:00] VITALS: BP 109/63
--- NOTE | 2019-08-12 20:54 | NUR ---
Accucheck 170. Pt has scheduled for tonight NovoLog 5 units (per sliding scale) and Levemir [address] nolasco notified, new order to reduce Levemir to 15 units, pt's husbands agrees with this treatment.
[2019-08-13] MEDS: inSUlin ASPART (NovoLOG) 1 UNIT/0.01 ML (CHARGE PER UNIT) SC SCH ×4 (05:41→21:43)
[2019-08-13 05:44] VITALS: BP 134/82
[2019-08-13] MEDS: LOSARTAN 100 MG (COZAAR) TABLET PO SCH (08:25)
[2019-08-13] MEDS: amLODIPine 10 MG (NORVASC) TAB PO SCH (08:25)
[2019-08-13] MEDS: HYDROCHLOROTHIAZIDE 25 MG (HCTZ) TAB PO SCH (08:25)
[2019-08-13] MEDS: cloNIDine 0.2 MG (CATAPRES) TAB PO SCH ×3 (08:25→21:41)
[2019-08-13] MEDS: CLOPIDOGREL 75 MG (PLAVIX) TABLET PO SCH (08:25)
[2019-08-13] MEDS: meTOprolol TARTRATE 50 MG (LOPRESSOR) TAB PO SCH ×2 (08:25→21:41)
[2019-08-13] MEDS: ASPIRIN E.C. 81 MG (ECOTRIN) TAB PO SCH (08:26)
[2019-08-13] MEDS: SENNA W/DOCUSATE (SENOKOT S) TABLET PO SCH ×2 (08:26→21:42)
[2019-08-13] MEDS: DOCUSATE SODIUM 100 MG (COLACE) CAP PO SCH ×2 (08:26→21:41)
--- NOTE | 2019-08-13 12:57 | PM&R Progress Note ---
Subjective HPI/CC On Admission Date Seen by Provider: Aug 13, 2019 Time Seen by Provider: 11:15 Chief complaint: CVA HPI: This is a 68yoWF known to me from 10 months ago in inpatient rehab for one month following a stroke-like condition that caused progression of multiple scrlerosus who resides at home with her who is very involved in her care, who presents to the inpatient rehab in need of rehabilitation following a stroke and subsequent weakness. Imaging scan confirmed stroke. At this current time she is on a modified diet and bowels are moving a little bit too loosely but she is motivated and ready to be admitted to inpatient rehab to begin a recovery to ultimately return home to lessen the burden on her . CC/HPI per YAIR Duarte CC: UTI w/ confusion, Stroke, Multiple Sclerosis HPI: Pt was not able to communicate very well most of the interview. She did respond yes and no to several questions she was not able to state her name or birthday. Her was the primary historian. He stated that she had been in the hospital and rehab unit previously from which she was able to return home using a walker. She was brought in to the hospital this visit for a UTI that was causing confusion along with hypertension. During her time in the hospital she had an MRI completed that showed evidence of multiple sclerosis with lesions. The MRI also showed she had a stroke. She is unable to communicate what her current struggles are regarding her neurological deficiencies. She is currently unable/unmotivated to sit up in bed unassisted. She reports being able to walk with a walker before entering the hospital and would like to be able to return to that level of function. Her states that she previously had similar symptoms that appeared to be related to her metformin causing lactic acid and her symptoms reportedly became better. The seemed to not fully unders tand the diagnosis of MS stating that metformin lactic acidosis can mimic MS. The patient was able to understand most of the questions, but not able to respond to questions do to inability to find words. Neuro Exam: EOMI She did not perform the CN7 exam due to inability to understand instructions with demonstration provided or possibly lack of motivation She did not rotate her head and when asked why she responded yes to the question of pain Sensation grossly intact in upper and lower extremities bilaterally She was unable to verbalize the discrimination between dull and sharp sensation, but did appear to be able to tell the difference Muscle strength was difficult to assess Hand contestant coordinator was 5/5 on right, but 4/5 on left Bilateral forearm flexion and extension 3/5. Difficult to assess further because she did not attempt to provide resistance Bilateral abduction of shoulder 2/5 Plantar flexion and dorsiflexion of bilateral feet 5/5 Bilateral hip flexion and extension 4/5 Subjective/Events-last exam at the bedside helps her answer most questions Patient denies any new issues Loose stools improved since holding laxatives Elevated blood pressure as usual We'll check labs on Wednesday Overall denies any new pain Was able to walk to the bathroom and was very pleased with those results Overall feeling much better since stroke 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 with special agent [facility] therapy notes Review of Systems Neurological: Weakness, Numbness, Incoordination Objective Exam Vital Signs Vital Signs Date Time Temp Pulse Resp B/P (MAP) Pulse Ox O2 Delivery O2 Flow Rate FiO2 08/14/19 05:40 36.7 63 18 129/78 (95) 97 Room Air 08/13/19 09:00 0.00 Capillary Refill : General Appearance: No Apparent Distress, WD/WN, Chronically ill HEENT: PERRL/EOMI, Normal ENT Inspection, Pharynx Normal, Moist Mucous Membra jason Neck: Full Range of Motion, Normal Inspection, Non Tender, Supple Respiratory: Chest Non Tender, Lungs Clear, Normal Breath Sounds, No Accessory Muscle Use, No Respiratory Distress Cardiovascular: Regular Rate, Rhythm, No Edema, No Gallop, No JVD, No Murmur Gastrointestinal: Normal Bowel Sounds, No Organomegaly, No Pulsatile Mass, Non Tender, Soft Back: Normal Inspection, No CVA Tenderness, No Vertebral Tenderness Extremity: Normal Capillary Refill, Normal Inspection, Normal Range of Motion (contractures and weakness limits exam), Non Tender, No Calf Tenderness, No Pedal Edema Neurologic/Psychiatric: Alert, Oriented x3, No Motor/Sensory Deficits, Normal Mood/Affect, Motor Weakness (generalized) Skin: Normal Color, Warm/Dry Lymphatic: No Adenopathy Results/Procedures Lab Laboratory Tests 08/14/19 04:57 Patient resulted labs reviewed. FIM Transfers Therapy Code Descriptions/Definitions Functional [place] Measure: 0=Not Assessed/NA 4=Minimal Assistance 1=Total Assistance 5=Supervision or Setup 2=Maximal Assistance 6=Modified [place] 3=Moderate Assistance 7=Complete IndependenceSCALE: Activities may be completed with or without assistive devices. 4-Gylsmqelop-qikkuxq completes the activity by him/herself with no assistance from a helper. 5-Set-up or Clean-up Assistance-helper sets up or cleans up; patient completes activity. Torrey assists only prior to or following the activity. 4-Supervision or Touching Assistance-helper provides verbal cues and/or touching/steadying and/or contact guard assistance as patient completes activity. Assistance may be provided throughout the activity or intermittently. 3-Partial/Moderate Assistance-helper does LESS THAN HALF the effort. Torrey lifts, holds or supports trunk or limbs, but provides less than half the effort. 2-Substantial/Maximal Assistance-helper does MORE THAN HALF the effort. [place]rey lifts or holds trunk or limbs and provides more than half the effort. 9-Ztjdginoj-qczqbv does ALL the effort. Patient does none of the effort to complete the activity. Or, the assistance of 2 or more helpers is required for the patient to complete the activity. If activity was not attempted, code reason: 7-Patient Refused. 9-Not Applicable-not attempted and the patient did not perform the activity before the current illness, exacerbation or injury. 10-Not Attempted due to Environmental Limitations-(lack of equipment, weather restraints, etc.). 88-Not Attempted due to Medical Conditions or Safety Concerns. Transfers (B, C, W/C) (FIM): 2 Roll Left to Right (QC): 2 Sit to Lying (QC): 2 Sit to Stand (QC): 3 Chair/Hzp-ow-Jsjwx Xfer(QC): 2 Car Transfer (QC): 2 Gait Training Does the Patient Walk?: Yes Walk 10 feet (QC): 88 (unable to initiate gait this visit. ) Walk 50 ft with 2 Turns(QC): 88 Walk 150 ft (QC): 88 Walking 10ft/uneven surface-QC: 88 Gait Assistive Device: Parallel Bars Wheelchair Training Does the Pt Use a Wheelchair?: Yes Wheel 50 ft with 2 turns (QC): 2 (depenedent for wc mobiltiy at this time due to functional weakness) Wheel 150 ft (QC): 2 Type of Wheelchair: Manual Stair Training 1 Step (curb) (QC): 88 4 Steps (QC): 88 12 Steps (QC): 88 Balance Picking up an Object (QC): 88 ADL-Treatment Oral Hygiene (QC): 4 (Pt required set up and required assist to hand supplies. Pt able to hold onto electric toothbrush and brush teeth. ) Shower/Bathe Self (QC): 2 Upper Body Dressing (QC): 2 Lower Body Dressing (QC): 1 On/Off Footwear (QC): 1 Toilet Transfer (QC): 2 Assessment/Plan Assessment and Plan Assess & Plan/Chief Complaint Assessment: CVA MS severe Chronic debility UTI Loose stools holding laxatives Plan: CVA care BP meds IRF protocol Prognosis overall poor but try to lessen burden at DC home (1) CVA (cerebral vascular accident) (2) Infarction of thalamus Status: Acute (3) Left parietal lobe lesion Status: Acute (4) Hypertensive emergency Status: Resolved Resolution Date/Time: 08/09/19 @ 11:07 (5) Acute kidney injury Status: Acute (6) History of stroke Status: Chronic (7) HTN (hypertension) Status: Acute (8) Multiple sclerosis Status: Chronic (9) UTI (urinary tract infection) Status: Acute (10) Hyperlipidemia Status: Chronic (11) Generalized weakness Status: Acute (12) Insulin dependent diabetes mellitus Status: Chronic (13) Hypomagnesemia Status: Acute (14) Hypokalemia Status: Acute (15) Confusion FAIZA JOLLEY DO Aug 13, 2019 12:57
[2019-08-13 18:00] VITALS: BP 117/75
[2019-08-14 05:15] LABS: BASOPHILS % (AUTO) 1 % (0-10); EOSINOPHILS # (AUTO) 0.2 10^3/uL (0.0-0.3); EOSINOPHILS % (AUTO) 3 % (0-10); HEMATOCRIT 35 % (35-52); HEMOGLOBIN 11.7 G/DL (11.5-16.0); LYMPHOCYTES # (AUTO) 2.2 X 10^3 (1.0-4.0); LYMPHOCYTES % (AUTO) 34 % (12-44); MEAN CORPUSCULAR HEMOGLOBIN 29 PG (25-34); MEAN CORPUSCULAR HGB CONC 34 G/DL (32-36); MEAN CORPUSCULAR VOLUME 86 FL (80-99); MONOCYTES # (AUTO) 0.6 X 10^3 (0.0-1.0); MONOCYTES % (AUTO) 10 % (0-12); NEUTROPHILS # (AUTO) 3.4 X 10^3 (1.8-7.8); NEUTROPHILS % (AUTO) 53 % (42-75); PLATELET COUNT 222 10^3/uL (130-400); RED CELL DISTRIBUTION WIDTH 14.6 % (10.0-14.5); WHITE BLOOD COUNT 6.4 10^3/uL (4.3-11.0)
[2019-08-14 05:33] LABS: ALBUMIN 3.4 GM/DL (3.2-4.5); BILIRUBIN,TOTAL 0.2 MG/DL (0.1-1.0); CALCIUM 9.1 MG/DL (8.5-10.1); CREATININE SERUM 1.08 MG/DL (0.60-1.30); POTASSIUM 3.1 MMOL/L (3.6-5.0); TOTAL PROTEIN 5.8 GM/DL (6.4-8.2)
[2019-08-14 05:40] VITALS: BP 129/78
[2019-08-14] MEDS: inSUlin ASPART (NovoLOG) 1 UNIT/0.01 ML (CHARGE PER UNIT) SC SCH ×4 (05:45→20:35)
[2019-08-14 08:00] VITALS: BP 154/95
[2019-08-14] MEDS ORDERED: METO-395 PO (08:20)
[2019-08-14] MEDS ORDERED: LOSA50TA63 PO (08:20)
[2019-08-14] MEDS ORDERED: KCL 10 MEQ TAB (MICRO K) PO NR (09:00)
[2019-08-14] MEDS: cloNIDine 0.2 MG (CATAPRES) TAB PO SCH ×3 (09:04→20:12)
[2019-08-14] MEDS: HYDROCHLOROTHIAZIDE 25 MG (HCTZ) TAB PO SCH (09:04)
[2019-08-14] MEDS: LOSARTAN 100 MG (COZAAR) TABLET PO SCH (09:05)
[2019-08-14] MEDS: amLODIPine 10 MG (NORVASC) TAB PO SCH (09:05)
[2019-08-14] MEDS: CLOPIDOGREL 75 MG (PLAVIX) TABLET PO SCH (09:06)
[2019-08-14] MEDS: SENNA W/DOCUSATE (SENOKOT S) TABLET PO SCH ×2 (09:06→20:12)
[2019-08-14] MEDS: ASPIRIN E.C. 81 MG (ECOTRIN) TAB PO SCH (09:06)
[2019-08-14] MEDS: meTOprolol TARTRATE 50 MG (LOPRESSOR) TAB PO SCH ×2 (09:08→20:12)
[2019-08-14] MEDS: DOCUSATE SODIUM 100 MG (COLACE) CAP PO SCH ×2 (09:09→20:13)
--- NOTE | 2019-08-14 09:42 | PM&R Progress Note ---
Subjective HPI/CC On Admission Date Seen by Provider: Aug 14, 2019 Time Seen by Provider: 08:45 Chief complaint: CVA HPI: This is a 68yoWF known to me from 10 months ago in inpatient rehab for one month following a stroke-like condition that caused progression of multiple scrlerosus who resides at home with her who is very involved in her care, who presents to the inpatient rehab in need of rehabilitation following a stroke and subsequent weakness. Imaging scan confirmed stroke. At this current time she is on a modified diet and bowels are moving a little bit too loosely but she is motivated and ready to be admitted to inpatient rehab to begin a recovery to ultimately return home to lessen the burden on her . CC/HPI per YAIR Duarte CC: UTI w/ confusion, Stroke, Multiple Sclerosis HPI: Pt was not able to communicate very well most of the interview. She did respond yes and no to several questions she was not able to state her name or birthday. Her was the primary historian. He stated that she had been in the hospital and rehab unit previously from which she was able to return home using a walker. She was brought in to the hospital this visit for a UTI that was causing confusion along with hypertension. During her time in the hospital she had an MRI completed that showed evidence of multiple sclerosis with lesions. The MRI also showed she had a stroke. She is unable to communicate what her current struggles are regarding her neurological deficiencies. She is currently unable/unmotivated to sit up in bed unassisted. She reports being able to walk with a walker before entering the hospital and would like to be able to return to that level of function. Her states that she previously had similar symptoms that appeared to be related to her metformin causing lactic acid and her symptoms reportedly became better. The seemed to not fully understand the diagnosis of MS stating that metformin lactic acidosis can mimic MS. The patient was able to understand most of the questions, but not able to respond to questions do to inability to find words. Neuro Exam: EOMI She did not perform the CN7 exam due to inability to understand instructions with demonstration provided or possibly lack of motivation She did not rotate her head and when asked why she responded yes to the question of pain Sensation grossly intact in upper and lower extremities bilaterally She was unable to verbalize the discrimination between dull and sharp sensation, but did appear to be able to tell the difference Muscle strength was difficult to assess Hand assembler tubing was 5/5 on right, but 4/5 on left Bilateral forearm flexion and extension 3/5. Difficult to assess further because she did not attempt to provide resistance Bilateral abduction of shoulder 2/5 Plantar flexion and dorsiflexion of bilateral feet 5/5 Bilateral hip flexion and extension 4/5 Subjective/Events-last exam Potassium 3.1 so started 10 milliequivalents daily Rest of labs normal Flexion is improved at times Encouraged oral intake Expectations are pretty low since she is full dependent care at home but doing everything we can to lessen the burden on her and caretakers at home 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 with software reliability engineer therapy notes Review of Systems General: Fatigue Neurological: Weakness, Numbness, Incoordination, Change in speech, Confusion Objective Exam Vital Signs Vital Signs Date Time Temp Pulse Resp B/P (MAP) Pulse Ox O2 Delivery O2 Flow Rate FiO2 08/15/19 17:42 36.5 61 14 110/82 (91) 99 Room Air 0.00 0.00 Capillary Refill : General Appearance: No Apparent Distress, WD/WN, Chronically ill HEENT: PERRL/EOMI, Normal ENT Inspection, Pharynx Normal, Moist Mucous Membranes Neck: Full Range of Motion, Normal Inspection, Non Tender, Supple Respiratory: Chest Non Tender, Lungs Clear, Normal Breath Sounds, No Accessory Muscle Use, No Respiratory Distress Cardiovascular: Regular Rate, Rhythm, No Edema, No Gallop, No JVD, No Murmur Gastrointestinal: Normal Bowel Sounds, No Organomegaly, No Pulsatile Mass, Non Tender, Soft Back: Normal Inspection, No CVA Tenderness, No Vertebral Tenderness Extremity: Normal Capillary Refill, Normal Inspection, Normal Range of Motion (contractures and weakness limits exam), Non Tender, No Calf Tenderness, No Pedal Edema Neurologic/Psychiatric: Alert, Oriented x3, No Motor/Sensory Deficits, Normal Mood/Affect, Motor Weakness (generalized) Skin: Normal Color, Warm/Dry Lymphatic: No Adenopathy Results/Procedures Lab Patient resulted labs reviewed. FIM Transfers Therapy Code Descriptions/Definitions Functional [place] Measure: 0=Not Assessed/NA 4=Minimal Assistance 1=Total Assistance 5=Supervision or Setup 2=Maximal Assistance 6=Modified [place] 3=Moderate Assistance 7=Complete IndependenceSCALE: Activities may be completed with or without assistive devices. 7-Nevdvejudh-dhvqvpg completes the activity by him/herself with no assistance from a helper. 5-Set-up or Clean-up Assistance-helper sets up or cleans up; patient completes activity. [place] assists only prior to or following the activity. 4-Supervision or Touching Assistance-helper provides verbal cues and/or touching/steadying and/or contact guard assistance as patient completes activity. Assistance may be provided throughout the activity or intermittently. 3-Partial/Moderate Assistance-helper does LESS THAN HALF the effort. [place] lifts, holds or supports trunk or limbs, but provides less than half the effort. 2-Substantial/Maximal Assistance-helper does MORE THAN HALF the effort. [place] lifts or holds trunk or limbs and provides more than half the effort. 9-Lidobzdug-vpniqh does ALL the effort. Patient does none of the effort to complete the activity. Or, the assistance of 2 or more helpers is required for the patient to complete the activity. If activity was not attempted, code reason: 7-Patient Refused. 9-Not Applicable-not attempted and the patient did not perform the activity before the current illness, exacerbation or injury. 10-Not Attempted due to Environmental Limitations-(lack of equipment, weather restraints, etc.). 88-Not Attempted due to Medical Conditions or Safety Concerns. Transfers (B, C, W/C) (FIM): 2 Roll Left to Right (QC): 2 Sit to Lying (QC): 2 Sit to Stand (QC): 3 Chair/Stw-bo-[place]mu[place] Xfer(QC): 2 Car Transfer (QC): 2 Gait Training Does the Patient Walk?: Yes Walk 10 feet (QC): 88 (unable to initiate gait this visit. ) Walk 50 ft with 2 Turns(QC): 88 Walk 150 ft (QC): 88 Walking 10ft/uneven surface-QC: 88 Gait Assistive Device: Parallel Bars Wheelchair Training Does the Pt Use a Wheelchair?: Yes Wheel 50 ft with 2 turns (QC): 2 (depenedent for wc mobiltiy at this time due to functional weakness) Wheel 150 ft (QC): 2 Type of Wheelchair: Manual Stair Training 1 Step (curb) (QC): 88 4 Steps (QC): 88 12 Steps (QC): 88 Balance Picking up an Object (QC): 88 ADL-Treatment Oral Hygiene (QC): 4 (Pt required set up and required assist to hand supplies. Pt able to hold onto electric toothbrush and brush teeth. ) Shower/Bathe Self (QC): 2 Upper Body Dressing (QC): 2 Lower Body Dressing (QC): 1 On/Off Footwear (QC): 1 Toilet Transfer (QC): 2 Assessment/Plan Assessment and Plan Assess & Plan/Chief Complaint Assessment: CVA MS severe Chronic debility UTI Loose stools holding laxatives Hypokalemia Plan: CVA care BP meds IRF protocol Prognosis overall poor but try to lessen burden at DC home Replace potassium (1) CVA (cerebral vascular accident) (2) Infarction of thalamus Status: Acute (3) Left parietal lobe lesion Status: Acute (4) Hypertensive emergency Status: Resolved Resolution Date/Time: 08/09/19 @ 11:07 (5) Acute kidney injury Status: Acute (6) History of stroke Status: Chronic (7) HTN (hypertension) Status: Acute (8) Multiple sclerosis Status: Chronic (9) UTI (urinary tract infection) Status: Acute (10) Hyperlipidemia Status: Chronic (11) Generalized weakness Status: Acute (12) Insulin dependent diabetes mellitus Status: Chronic (13) Hypomagnesemia Status: Acute (14) Hypokalemia Status: Acute (15) Confusion FAIZA JOLLEY DO Aug 14, 2019 09:41
--- NOTE | 2019-08-14 10:37 | Progress Note ---
[facility] 08/14/19 1037: Progress Note CC: UTI w/ confusion, possible stroke Pt has trouble speaking clearly, but is able to answer yes and no appropriately Most of the history and home environment/ADLs previously able to be completed were obtained from The patients works part-time (<20hr/wk), which he states is an event related basis and has worked well in the past with his care for her * He states that he has friends that have come by to sit with her in the past if he had to work * He also states that they have used OT/PT and a home health nurse that came a few times a week in the past Barriers: * Pt is currently unable to get out of bed unassisted * Pt unable to dress or bath independently * Pt unable to cook or clean, however the has been in charge of these primarily in past * Pt is unable to use the toilet without assistance * Pt's states that they have a shower transfer chair and shower wand he has used in the past to help her bath * She is able to walk very short distances currently using the walker reported by the * She is able to eat and drink, but does require a little assistance sometimes KARLA JOLLEY DO 08/15/196: Supervisory-Addendum Brief Verification & Attestation Participated in pt care: history, MDM, physical Personally performed: exam, history, MDM, supervision of care Care discussed with: Medical Student Procedures: n/a Results interpretation: Verified all documentation Verification and Attestation of Medical Student E/M Service A medical student performed and documented this service in my presence. I reviewed and verified all information documented by the medical student and made modifications to such information, when appropriate. I personally performed the physical exam and medical decision making. Karla Jolley Aug 15, 2019,20:46 [facility] Aug 14, 2019 10:37 KARLA JOLLEY DO Aug 15, 2019 20:46
--- NOTE | 2019-08-14 11:50 | Physical Therapy Daily Note ---
PT Daily Note-Current Subjective Pts present with pt. Pt. in bed, head down, eyes fixed, no volitional movement , non verbal . states she had been like this Wednesday and he was concerned she was dehydrated. Pain Location: No Pain Reported Comment: somewhat catatonic in presentation Mental Status Patient Orientation: Non-Verbal/Aphasic Attachments: IV Transfers SCALE: Activities may be completed with or without assistive devices. 1-Zlfmoonlsw-daqdwmd completes the activity by him/herself with no assistance from a helper. 5-Set-up or Clean-up Assistance-helper sets up or cleans up; patient completes activity. [place] assists only prior to or following the activity. 4-Supervision or Touching Assistance-helper provides verbal cues and/or touching/steadying and/or contact guard assistance as patient completes activity. Assistance may be provided throughout the activity or intermittently. 3-Partial/Moderate Assistance-helper does LESS THAN HALF the effort. [place] lifts, holds or supports trunk or limbs, but provides less than half the effort. 2-Substantial/Maximal Assistance-helper does MORE THAN HALF the effort. [place] lifts or holds trunk or limbs and provides more than half the effort. 2-Xrqwafjkb-hfvowi does ALL the effort. Patient does none of the effort to complete the activity. Or, the assistance of 2 or more helpers is required for the patient to complete the activity. If activity was not attempted, code reason: 7-Patient Refused. 9-Not Applicable-not attempted and the patient did not perform the activity before the current illness, exacerbation or injury. 10-Not Attempted due to Environmental Limitations-(lack of equipment, weather restraints, etc.). 88-Not Attempted due to Medical Conditions or Safety Concerns. Transfers (B, C, W/C): 2 Roll Left to Right (QC): 2 Sit to Lying (QC): 2 Sit to Stand (QC): 2 Chair/Bik-pb-Dmlti Xfer(QC): 2 max assist for rolling, sup to sit as well as SPT to chair, increased tone noted globally, needed mod assist to sit EOB, slumping right often. SPT to recliner , LEs elevated, still head down and eyes fixed, no verbal response Weight Bearing Right Lower Extremity: Right Weight Bearing/Tolerated Left Lower Extremity: Left Weight Bearing/Tolerated Gait Training pt. took a questionable 2-3 side steps to chair with max to mod assist Exercises Supine Ex: Ankle pumps, Rolling, Heel Slides, Scooting (max), Straight leg raise, Hip abd/add Supine Reps: 10 (all assisted maxPROM) Treatments pt. up in recliner with LEs elevate, towels placed on lap , warm water in basin placed in lap this INSPECTION CLERK hand over hand assisted with hand washing and hand soak for approx 6 mins Assessment Current Status: Poor Progress pt. declined functionally, n active mvmt, no verbal response, max assist for all, dependent for all PT Detention Goals Process Treater Goals PT Process Treater Goals Time Frame: Sep 08, 2019 Sit to Lying (QC): 5 Lying-Sitting on Side/Bed(QC): 5 Sit to Stand (QC): 5 Roll Left to Right (QC): 5 Chair/Qjz-zu-Fjoyk Xfer(QC): 5 Car Transfer (QC): 5 Does the Patient Walk: No and Walking Goal IS indicated Walk 10 feet (QC): 4 Walk 10ft-Uneven Surface(QC): 4 Walk 50ft with 2 Turns (QC): 4 Walk 150 ft (QC): 4 Gait Assistive Device: FWW Wheel 50 feet with 2 turns (QC: 4 1 Step (curb) (QC): 4 4 Steps (QC): 4 12 Steps (QC): 88 Picking up an Object (QC): 88 PT Plan Treatment/Plan Treatment Plan: Continue Plan of Care Treatment Plan: Bed Mobility, Education, Functional Activity Shiv, Functional Strength, Group Therapy, Gait, Safety, Therapeutic Exercise, Transfers Treatment Duration: Sep 08, 2019 Frequency: At least 5 of 7 days/Wk (IRF) Estimated Hrs Per Day: 1.5 hours per day Patient and/or Family Agrees t: Yes Safety Risks/Education Patient Education: Transfer Techniques, Correct Positioning, Disease Process, Safety Issues Teaching Recipient: Patient Teaching Methods: Discussion Response to Teaching: Unable to Return Demonstration, Unable to Comprehend, Reinforcement Needed Time/GCodes Time In: 1100 Time Out: 1200 Total Billed Treatment Time: 60 Total Billed Treatment 1,EX20m,FA40m WILLIAM JULIAN INSPECTION CLERK Aug 14, 2019 11:50
[2019-08-14 13:00] VITALS: BP 115/69
[2019-08-14] MEDS: ceTIRizine 10 MG (ZyrTEC) TAB NON-FORMULARY PO SCH (13:15)
--- NOTE | 2019-08-14 14:29 | Speech Therapy Daily Note ---
Speech Daily Progress Note Subjective Date Seen by Provider: Aug 14, 2019 Time Seen by Provider: 00:30 Patient was sitting up in her recliner eating lunch with her at her side when I entered her room. Objective Patient demo ability to take small sips with verbal cues and assistance at 75%. Assessment Assessment Current Status: Fair Progress Treatment Plan Continue Plan of Care Speech Short Term Goals Short Term Goals Short Term Goals 1) Patient will complete cognitive tasks at 80% or greater with minimal cuing. 2) Patient will complete speech tasks at 80% or greater with minimal cuing. Speech Usp Goals Usp Goals Patient will improve speech and cognitive level of function in order to meet her communication and independence needs. Speech-Plan Patient/Family Goals Patient/Family Goals: Patient's family plans for her to return home post rehab. This will be determined at a later date depending on her progress. Treatment Plan Speech Therapy Treatment Plan: Continue Plan of Care Patient is slightly more alert today. Treatment Duration: Aug 25, 2019 Frequency: 5 times per week Estimated Hrs Per Day: .5 hour per day Rehab Potential: Fair Barriers to Learning: Patient is very weak and has multiple medical comorbidities Pt/Family Agrees to Plan: Yes Safety Risks/Education Teaching Recipient: Patient, Significant Other Teaching Methods: Demonstration, Discussion Response to Teaching: Verbalize Understanding, Return Demonstration Education Topics Provided: Continued safety of oral intake. Time Speech Therapy Time In: 12:30 Speech Therapy Time Out: 13:00 Total Billed Time: 30 Billed Treatment Time RUTH Peñaloza HAILE Hernández Aug 14, 2019 14:29
--- NOTE | 2019-08-14 14:29 | NUR ---
"RD ASSESSMENT PMHx: HTN, T2DM, AMS, hypercholesterolemia, pancreatitis, chronic constipation, MS, stroke PT INTERACTION: Pt was awake and pleasant during rehab nutrition assessment. Note pt has AMS, per chart review, and note that pt's was present. states that pt is eating well, and better since her diet was advanced to DYS2 Mech Altered. Note while pt has been eating better, pt is still consuming <50% of meals, per feeding assessment. states trying to find things in the menu that he feels she would like. states pt likes Glucerna (strawberry) that has been added to her trays. states no recent issues with n/v at this time. Note pt currently on anti-emetic zofran. states some issues with constipation/diarrhea, noting episodes of diarrhea for the past few days. Note pt currently on bowel regimen of colace,senna,miralax. ABNORMAL NUTRITION-RELATED LAB VALUES: K 3.1 (L); Pro 5.8 (L); BUN 30 (H) Est. kcal needs: 5949-4253 kcal (25-30 kcal/kg) Est. Pro needs: 57-69 g Pro (1.0-1.2 g Pro/kg) PES STATEMENT: Inadequate oral intake (NI-2.1) related to loss of appetite as evidenced by <50% of meals consumed | pt () interview INTERVENTION: Continue current diet order of DYS2 Mechanically Altered diet. Add Glucerna (strawberry) to trays TID. Provides 180 kcal and 10 g Pro per serving. Encouraged pt and to eat when able. MONITOR/EVALUATE: PO Intake; Plan of Care; Hydration Status; Weight Status; Lab Values; Stool Output Serjio Christensen, MS, RD, LD Ext. 133"
--- NOTE | 2019-08-14 14:31 | Occupational Ther Daily Note ---
OT Current Status-Daily Note Subjective Pt seen in room, up in bed, agreeable to OT. present. Pt did not report any pain. Appearance Lethargic, more responsive earlier in tx. ADL-Treatment present during tx. Pt [place] occasional brief vocalizations during early part of tx. Pt rolled side to side with mod-max assist, sometimes reaching for bedrail and other times needed help, to help with bath. Pt unable to wash lauri or bottom, legs but did help left legs to wash them. Able to help lift legs for donning pants, brief and slipper socks and helped bridge for pants to be pulled up. Also helped a little with rolling side to side for pulling up pants. Max assist supine to move to sit edge of bed. Sometimes able to sit unsupported and sometimes needed mod help and cues to pull herself upright. Able to wash her face with setup and attempt to wash L arm a little but not effectively. Able to raise arms a little to help with donning shirt. Pt became less and less responsive as she fatigued. Max assist to return to supine but she did attempt to move her bottom in bed. Presented with toothbrush but pt did not respond. Therapy Code Descriptions/Definitions Functional [place] Measure: 0=Not Assessed/NA 4=Minimal Assistance 1=Total Assistance 5=Supervision or Setup 2=Maximal Assistance 6=Modified [place] 3=Moderate Assistance 7=Complete IndependenceSCALE: Activities may be completed with or without assistive devices. 1-Hmeebkoqea-barcesv completes the activity by him/herself with no assistance from a helper. 5-Set-up or Clean-up Assistance-helper sets up or cleans up; patient completes activity. [place] assists only prior to or following the activity. 4-Supervision or Touching Assistance-helper provides verbal cues and/or touching/steadying and/or contact guard assistance as patient completes activity. Assistance may be provided throughout the activity or intermittently. 3-Partial/Moderate Assistance-helper does LESS THAN HALF the effort. [place] l ifts, holds or supports trunk or limbs, but provides less than half the effort. 2-Substantial/Maximal Assistance-helper does MORE THAN HALF the effort. [place] lifts or holds trunk or limbs and provides more than half the effort. 8-Srfntxftp-rmusbd does ALL the effort. Patient does none of the effort to complete the activity. Or, the assistance of 2 or more helpers is required for t he patient to complete the activity. If activity was not attempted, code reason: 7-Patient Refused. 9-Not Applicable-not attempted and the patient did not perform the activity before the current illness, exacerbation or injury. 10-Not Attempted due to Environmental Limitations-(lack of equipment, weather restraints, etc.). 88-Not Attempted due to Medical Conditions or Safety Concerns. Shower/Bathe Self (QC): 2 Upper Body Dressing (QC): 2 Lower Body Dressing (QC): 2 Other Treatment Pt needed mod assist to complete bilat shoulder flex to approx 90 degrees x 5 reps and min assist controlling shoulder extension. Mod assist elbow flexion, min assist extension. Minimal effort for gross finger flex/ext. pt left up in bed, 4 rails up, all needs met. Education OT Patient Education: Exercise program, Modified ADL techniques, Progress toward Goal/Update tx plan, Purpose of tx/functional activities, Safety issues Teaching Recipient: Patient, Significant Other Teaching Methods: Demonstration, Discussion Response to Teaching: Return Demonstration (at times), Reinforcement Needed OT Short Term Goals Short Term Goals 1=Demonstrate adherence to instructed precautions during ADL tasks. 2=Patient will verbalize/demonstrate understanding of assistive devices/modifications for ADL. 3=Patient will improve strength/tolerance for activity to enable patient to perform ADL's. OT Boiler Welder Goals Boiler Welder Goals Time Frame: Sep 01, 2019 Eating (QC): 5 Oral Hygiene (QC): 5 Shower/Bathe Self (QC): 3 Upper Body Dressing (QC): 4 Lower Body Dressing (QC): 3 On/Off Footwear (QC): 3 Toileting Hygiene (QC): 4 (CGA) Toilet/Commode Transfer (QC): 4 (CGA) Additional Goals: 1-Demonstrate ADL Tasks, 2-Verbalize Understanding, 3- ImproveStrength/Shiv 1=Demonstrate adherence to instructed precautions during ADL tasks. 2=Patient will verbalize/demonstrate understanding of assistive devices/modifications for ADL. 3=Patient will improve strength/tolerance for activity to enable patient to perform ADL's. OT Education/Plan Problem List/Assessment Pt to benefit from skilled OT intervention for ADL training, transfers, strengthening, and safety education to maximize level of function and decrease caregiver burden. Discharge Recommendations Plan/Recommendations: Continue POC Treatment Plan/Plan of Care Patient would benefit from OT for education, treatment and training to promote independence in ADL's, mobility, safety and/or upper extremity function for ADL's. Plan of Care: ADL Retraining, Functional Mobility, Group Exercise/Act as Ind, UE Funct Exercise/Act, UE Neuromus Re-Ed/Coord Treatment Duration: Sep 01, 2019 Frequency: At least 5 of 7 days/Wk (IRF) Estimated Hrs Per Day: 1.5 hours per day Rehab Potential: Fair Time/GCodes Start Time: 10:00 Stop Time: 11:00 Total Time Billed (hr/min): 60 Billed Treatment Time visit, 50 minutes ADL, 10 minutes exercise STAR ANDREWS OT Aug 14, 2019 14:31
--- NOTE | 2019-08-14 14:40 | Occupational Ther Daily Note ---
OT Current Status-Daily Note Subjective Pt seen in room, up in recliner, agreeable to OT. More alert and smiling ADL-Treatment Pt presented with toothbrush. Did not initiate brushing teeth but did try to push button to turn toothbrush on. With multiple trials, pt was able to put toothbrush near mouth a couple times but tried to brush with toothbrush handle. Did not do better with toothbrush turned on. Given hairbrush and unable to initiate brushing hair, after verbal and demonstration cues. Pt left up in recliner, all needs met. Therapy Code Descriptions/Definitions Functional Roxie Measure: 0=Not Assessed/NA 4=Minimal Assistance 1=Total Assistance 5=Supervision or Setup 2=Maximal Assistance 6=Modified Roxie 3=Moderate Assistance 7=Complete IndependenceSCALE: Activities may be completed with or without assistive devices. 3-Jnecznojvs-frcknfa completes the activity by him/herself with no assistance from a helper. 5-Set-up or Clean-up Assistance-helper sets up or cleans up; patient completes activity. [place] assists only prior to or following the activity. 4-Supervision or Touching Assistance-helper provides verbal cues and/or touching/steadying and/or contact guard assistance as patient completes activity. Assistance may be provided throughout the activity or intermittently. 3-Partial/Moderate Assistance-helper does LESS THAN HALF the effort. [place] lifts, holds or supports trunk or limbs, but provides less than half the effort. 2-Substantial/Maximal Assistance-helper does MORE THAN HALF the effort. [place] lifts or holds trunk or limbs and provides more than half the effort. 3-Nqbpjqjap-tazupy does ALL the effort. Patient does none of the effort to complete the activity. Or, the assistance of 2 or more helpers is required for the patient to complete the activity. If activity was not attempted, code reason: 7-Patient Refused. 9-Not Applicable-not attempted and the patient did not perform the activity before the current illness, exacerbation or injury. 10-Not Attempted due to Environmental Limitations-(lack of equipment, weather restraints, etc.). 88-Not Attempted due to Medical Conditions or Safety Concerns. Oral Hygiene (QC): 2 Education OT Patient Education: Purpose of tx/functional activities Teaching Recipient: Patient Teaching Methods: Demonstration Response to Teaching: Unable to Return Demonstration OT Short Term Goals Short Term Goals 1=Demonstrate adherence to instructed precautions during ADL tasks. 2=Patient will verbalize/demonstrate understanding of assistive devices/modifications for ADL. 3=Patient will improve strength/tolerance for activity to enable patient to perform ADL's. OT Product Development Director Goals Product Development Director Goals Time Frame: Sep 01, 2019 Eating (QC): 5 Oral Hygiene (QC): 5 Shower/Bathe Self (QC): 3 Upper Body Dressing (QC): 4 Lower Body Dressing (QC): 3 On/Off Footwear (QC): 3 Toileting Hygiene (QC): 4 (CGA) Toilet/Commode Transfer (QC): 4 (CGA) Additional Goals: 1-Demonstrate ADL Tasks, 2-Verbalize Understanding, 3-ImproveStrength/Shiv 1=Demonstrate adherence to instructed precautions during ADL tasks. 2=Patient will verbalize/demonstrate understanding of assistive devices/modifications for ADL. 3=Patient will improve strength/tolerance for activity to enable patient to perform ADL's. OT Education/Plan Problem List/Assessment Pt to benefit from skilled OT intervention for ADL training, transfers, strengthening, and safety education to maximize level of function and decrease caregiver burden. Discharge Recommendations Plan/Recommendations: Continue POC Treatment Plan/Plan of Care Patient would benefit from OT for education, treatment and training to promote independence in ADL's, mobility, safety and/or upper extremity function for ADL's. Plan of Care: ADL Retraining, Functional Mobility, Group Exercise/Act as Ind, UE Funct Exercise/Act, UE Neuromus Re-Ed/Coord Treatment Duration: Sep 01, 2019 Frequency: At least 5 of 7 days/Wk (IRF) Estimated Hrs Per Day: 1.5 hours per day Rehab Potential: Fair Time/GCodes Start Time: 13:35 Stop Time: 13:50 Total Time Billed (hr/min): 15 Billed Treatment Time visit, 15 minutes ADL STAR ANDREWS OT Aug 14, 2019 14:40
--- NOTE | 2019-08-14 14:54 | Physical Therapy Daily Note ---
PT Daily Note-Current Subjective Pt. somewhat more alert than AM. Sitting up in recliner, incont of urine. Does look up and make eye contact this PM and attempts to utter a response but not understood , very low volume Pain Location: No Pain Reported Transfers SCALE: Activities may be completed with or without assistive devices. 2-Xzjhavsxhz-ejzdfyi completes the activity by him/herself with no assistance from a helper. 5-Set-up or Clean-up Assistance-helper sets up or cleans up; patient completes activity. [place] assists only prior to or following the activity. 4-Supervision or Touching Assistance-helper provides verbal cues and/or touc brigid/steadying and/or contact guard assistance as patient completes activity. Assistance may be provided throughout the activity or intermittently. 3-Partial/Moderate Assistance-helper does LESS THAN HALF the effort. [place] lifts, holds or supports trunk or limbs, but provides less than half the effort. 2-Substantial/Maximal Assistance-helper does MORE THAN HALF the effort. [place] lifts or holds trunk or limbs and provides more than half the effort. 4-Gyowssmxy-rlfjrf does ALL the effort. Patient does none of the effort to complete the activity. Or, the assistance of 2 or more helpers is required for the patient to complete the activity. If activity was not attempted, code reason: 7-Patient Refused. 9-Not Applicable-not attempted and the patient did not perform the activity before the current illness, exacerbation or injury. 10-Not Attempted due to Environmental Limitations-(lack of equipment, weather restraints, etc.). 88-Not Attempted due to Medical Conditions or Safety Concerns. max to mod assist sit to stand as well as dance fashion SPT chair to bed. Upon sitting on bed it was discovered pt. was very wet through brief to outside clothing. Nursing was called and assisted with change of brief etc. again max assist sit to stand of one while nursing doffed brief and pants then cleaned pt, then in sitting clean brief donned and pulled up then sit to sup assist of max in to bed, pt. rolled to left side with pillow support behind back and between legs . Call quinn at hand and explained. Weight Bearing Right Lower Extremity: Right Weight Bearing/Tolerated Left Lower Extremity: Left Weight Bearing/Tolerated Gait Training tiny side steps for SPT mod assist Assessment Current Status: Fair Progress more alert, continues dependent for all, sitting balance requires assist as well PT Riverboat Captain Goals Riverboat Captain Goals PT Group Home Goals Time Frame: Sep 08, 2019 Sit to Lying (QC): 5 Lying-Sitting on Side/Bed(QC): 5 Sit to Stand (QC): 5 Roll Left to Right (QC): 5 Chair/Soe-yc-Gaaff Xfer(QC): 5 Car Transfer (QC): 5 Does the Patient Walk: No and Walking Goal IS indicated Walk 10 feet (QC): 4 Walk 10ft-Uneven Surface(QC): 4 Walk 50ft with 2 Turns (QC): 4 Walk 150 ft (QC): 4 Gait Assistive Device: FWW Wheel 50 feet with 2 turns (QC: 4 1 Step (curb) (QC): 4 4 Steps (QC): 4 12 Steps (QC): 88 Picking up an Object (QC): 88 PT Plan Treatment/Plan Treatment Plan: Continue Plan of Care Treatment Plan: Bed Mobility, Education, Functional Activity Shiv, Functional Strength, Group Therapy, Gait, Safety, Therapeutic Exercise, Transfers Treatment Duration: Sep 08, 2019 Frequency: At least 5 of 7 days/Wk (IRF) Estimated Hrs Per Day: 1.5 hours per day Patient and/or Family Agrees t: Yes Safety Risks/Education Patient Education: Transfer Techniques, Correct Positioning, Safety Issues Teaching Recipient: Patient Teaching Methods: Demonstration, Discussion Response to Teaching: Unable to Return Demonstration, Unable to Comprehend, Reinforcement Needed Time/GCodes Time In: 1435 Time Out: 1455 Total Billed Treatment Time: 20 Total Billed Treatment 1,FA20m WILLIAM JULIAN [employer]NA[employer] Aug 14, 2019 14:54
--- NOTE | 2019-08-14 15:33 | Pulmonary Progress Note ---
Standard Progress Note Progress Notes Date Seen by Provider: Aug 14, 2019 Time Seen by Provider: 14:50 Pt is sleeping when arrived. Pt denies any breathing issue but is poor historian and no family at bedside. She is not requiring oxygen. RN report pt is not having any respiratory issues at this time. Assessment & Plan HTN emergency - improved Metabolic encephalopathy with probable chronic dementia Probable YAMILKA -Will plan for out pt PSG Admission notes, images, labs and Dr. Gaspar's progress notes have been reviewed for continued care. TOMAS ADLER APRN Aug 14, 2019 15:33
--- NOTE | 2019-08-14 15:43 | NUR ---
Met with patient's spouse, Clinton, at patient's bedside to complete initial assessment. Patient has history of difficulty with speech and is able to speak yes/no and short phrases. Patient admitted to [facility] on 08/11/19 with UTI, acute encephalopathy with altered mental status and history of CVA. Prior to hospitalization the patient was living at home with her , Clinton, in [place], [place]. Clinton reports they live in a single-level home with 2 entry steps; he is currently working on having a rail installed. Clinton provided assistance with ADLs, but reports the patient was able to ambulate using a walker. He reports the patient has not used a wheelchair for some time. Clinton reports he works at [employer] and borrowed a wheelchair for the patient to use, but has since returned it. He stated he could borrow a wheelchair again if needed at discharge. Clinton reported they have the following equipment: bath bench, BSC, grab bars in the bathroom, shower hose binding nicker and walker. Clinton is the primary contact and can be reached at or . Dr. Goldsmith is patient's primary physician and preferred pharmacy is [facility]. Clinton confirmed primary insurance as Medicare with Blue Cross supplement. The purpose of the weekly team conference was discussed and Clinton verbalized understanding. Discharge goal is for the patient to return home.
[2019-08-14 16:32] VITALS: BP 106/68
--- NOTE | 2019-08-14 18:00 | NUR ---
SOMEWHAT LETHARGIC THIS AM, BUT PERKED UP THIS AFTERNOON. EATING FAIR. DOES COUGH WITH MEDS AND FOOD AT TIMES. STATES THIS HAS BEEN ONGOING - DOES FINE AT TIMES AND COUGHS AT OTHER TIMES. SPEECH THERAPIST SAW PATIENT AND NO CHANGES AT THIS TIME. TAISHA KIMBROUGH CONTINUES. POOR OUTPUT TODAY. BLADDER SCAN DONE AND 178 CC NOTED. WILL CONTINUE TO MONITOR.
[2019-08-15 06:12] VITALS: BP 129/80
[2019-08-15] MEDS: inSUlin ASPART (NovoLOG) 1 UNIT/0.01 ML (CHARGE PER UNIT) SC SCH ×4 (06:12→21:26)
[2019-08-15] MEDS: KCL 10 MEQ TAB (MICRO K) PO SCH (06:56)
--- NOTE | 2019-08-15 08:29 | Progress Note ---
[facility] 08/15/19 0829: Subjective Date Seen by a Provider: Aug 15, 2019 Time Seen by a Provider: 07:50 Subjective/Events-last exam CC: UTI w/ confusion, Possible stroke * Pt unable to communicate other than yes and no responses intermittently * She reports having more strength in her legs, but denies any change in her arms * She responded yes to using a walker a little * She did have an episode of dysphagia this morning due to being malpositioned in her bed while trying to eat * Her was present at the time of choking and asked a nursing staff member for assistance * Pt did not report any significant change from yesterday Review of Systems HEENT: No Head Aches; Dysphasia Pulmonary: No Dyspnea, No Cough Cardiovascular: No: Chest Pain, Palpitations Gastrointestinal: No: Vomiting, Abdominal Pain Musculoskeletal: No: back pain, leg pain, foot pain Neurological: Weakness; No: Numbness Focused Exam Respiratory: Chest Non Tender, Lungs Clear, Normal Breath Sounds, No Accessory Muscle Use, No Respiratory Distress Cardiovascular: Regular Rate, Rhythm, No Gallop, No Murmur Objective Exam Last Set of Vital Signs Vital Signs Date Time Temp Pulse Resp B/P (MAP) Pulse Ox O2 Delivery O2 Flow Rate FiO2 08/15/19 06:12 36.6 60 16 129/80 (96) 95 Room Air 08/13/19 09:00 0.00 Capillary Refill : I&O Intake and Output 08/15/19 00:00 Intake Total 765 ml Output Total 160 ml Balance 605 ml Intake Oral 765 ml Output Urine Total 160 ml # Voids 3 General: Alert, No Acute Distress Lungs: Clear to Auscultation, Normal Air Movement Heart: Regular Rate, No Murmurs Extremities: No Edema, No Tenderness/Swelling Neuro: Other (Unable to speak other than yes and no, mumble incoherent speech otherwise) Psych/Mental Status: Other (Unclear whether she fully understands some questions, flat affect) Results Lab Laboratory Tests 08/14/19 11:13: Glucometer 240H 08/14/19 16:25: Glucometer 165H 08/14/19 20:20: Glucometer 277H 08/15/19 05:18: Glucometer 102 Assessment/Plan Assessment/Plan Assess & Plan/Chief Complaint Assessment: CVA MS Debility Hypokalemia Plan: Continue OT/PT Assess for ability to return to home with Continue oral Potassium supplement Continue to manage BP Clinical Quality Measures DVT/VTE Risk/Contraindication: Risk Factor Score Per Nursin RFS Level Per Nursing on Admit: 4+=Very High KARLA JOLLEY DO 08/15/19 2104: Supervisory-Addendum Brief Verification & Attestation Participated in pt care: history, MDM, physical Personally performed: exam, history, MDM, supervision of care Care discussed with: Medical Student Procedures: n/a Results interpretation: Verified all documentation Verification and Attestation of Medical Student E/M Service A medical student performed and documented this service in my presence. I reviewed and verified all information documented by the medical student and made modifications to such information, when appropriate. I personally performed the physical exam and medical decision making. Karla Jolley, Aug 15, 2019,21:04 [facility] Aug 15, 2019 08:29 KARLA JOLLEY DO Aug 15, 2019 21:04
--- NOTE | 2019-08-15 08:42 | NUR ---
This nurse called by patient's into room. Patient had started coughing and choking. Patient was able to clear and was breathing. Patient was slumped down in the bed, bent at mid back, not in proper alignment for eating. This nurse quickly assisted patient to 90 degree angle. Patient was able to verbalize that she was "OK". This nurse asked patient's what had happened. He stated that he had given patient a bite of banana and a sip of water, then started choking. Bedside education given on what to do if that happens at home, proper body alignment for eating, and dangers of not following proper alignment.
[2019-08-15] MEDS: meTOprolol TARTRATE 50 MG (LOPRESSOR) TAB PO SCH ×2 (09:04→21:47)
[2019-08-15] MEDS: SENNA W/DOCUSATE (SENOKOT S) TABLET PO SCH ×2 (09:04→21:47)
[2019-08-15] MEDS: DOCUSATE SODIUM 100 MG (COLACE) CAP PO SCH ×2 (09:04→21:47)
[2019-08-15] MEDS: cloNIDine 0.2 MG (CATAPRES) TAB PO SCH ×3 (09:05→21:47)
[2019-08-15] MEDS: HYDROCHLOROTHIAZIDE 25 MG (HCTZ) TAB PO SCH (09:05)
[2019-08-15] MEDS: CLOPIDOGREL 75 MG (PLAVIX) TABLET PO SCH (09:05)
[2019-08-15] MEDS: LOSARTAN 100 MG (COZAAR) TABLET PO SCH (09:05)
[2019-08-15] MEDS: amLODIPine 10 MG (NORVASC) TAB PO SCH (09:05)
[2019-08-15] MEDS: ceTIRizine 10 MG (ZyrTEC) TAB NON-FORMULARY PO SCH (09:06)
[2019-08-15] MEDS: ASPIRIN E.C. 81 MG (ECOTRIN) TAB PO SCH (09:06)
--- NOTE | 2019-08-15 09:11 | Speech Therapy Daily Note ---
Speech Daily Progress Note Subjective Date Seen by Provider: Aug 15, 2019 Time Seen by Provider: 00:30 Patient was resting in bed watching "[employer]" on television when I entered her room. Objective Patient demo ability to answer y/n consistently with simple questions at 80% with 25% cues and/or repetitions. Assessment Assessment Current Status: Fair Progress Treatment Plan Continue Plan of Care Speech Short Term Goals Short Term Goals Short Term Goals 1) Patient will complete cognitive tasks at 80% or greater with minimal cuing. 2) Patient will complete speech tasks at 80% or greater with minimal cuing. Speech Filter Bed Placer Goals Snf Goals Patient will improve speech and cognitive level of function in order to meet her communication and independence needs. Speech-Plan Patient/Family Goals Patient/Family Goals: Patient's plans for her to return home, however at this time she requires a great deal of assistance which may not be a viable situation upon discharge. Treatment Plan Speech Therapy Treatment Plan: Continue Plan of Care Patient was alert this morning. Treatment Duration: Aug 25, 2019 Frequency: 5 times per week Estimated Hrs Per Day: .5 hour per day Rehab Potential: Fair Barriers to Learning: Patient has a complex medical status at this point. Pt/Family Agrees to Plan: Yes Safety Risks/Education Teaching Recipient: Patient, Significant Other Teaching Methods: Discussion Response to Teaching: Verbalize Understanding Education Topics Provided: Continued need for communication of wants/needs. Time Speech Therapy Time In: 08:00 Speech Therapy Time Out: 08:30 Total Billed Time: 30 Billed Treatment Time 1, HAILE Giordano Aug 15, 2019 09:11
--- NOTE | 2019-08-15 09:25 | PM&R Progress Note ---
Subjective HPI/CC On Admission Date Seen by Provider: Aug 15, 2019 Time Seen by Provider: 08:45 Chief complaint: CVA HPI: This is a 68yoWF known to me from 10 months ago in inpatient rehab for one month following a stroke-like condition that caused progression of multiple scrlerosus who resides at home with her who is very involved in her care, who presents to the inpatient rehab in need of rehabilitation following a stroke and subsequent weakness. Imaging scan confirmed stroke. At this current time she is on a modified diet and bowels are moving a little bit too loosely but she is motivated and ready to be admitted to inpatient rehab to begin a recovery to ultimately return home to lessen the burden on her . CC/HPI per YAIR Duarte CC: UTI w/ confusion, Stroke, Multiple Sclerosis HPI: Pt was not able to communicate very well most of the interview. She did respond yes and no to several questions she was not able to state her name or birthday. Her was the primary historian. He stated that she had been in the hospital and rehab unit previously from which she was able to return home using a walker. She was brought in to the hospital this visit for a UTI that was causing confusion along with hypertension. During her time in the hospital she had an MRI completed that showed evidence of multiple sclerosis with lesions. The MRI also showed she had a stroke. She is unable to communicate what her current struggles are regarding her neurological deficiencies. She is currently unable/unmotivated to sit up in bed unassisted. She reports being able to walk with a walker before entering the hospital and would like to be able to return to that level of function. Her states that she previously had similar symptoms that appeared to be related to her metformin causing lactic acid and her symptoms reportedly became better. The seemed to not fully understand the diagnosis of MS stating that metformin lactic acidosis can mimic MS. The patient was able to understand most of the questions, but not able to respond to questions do to inability to find words. Neuro Exam: EOMI She did not perform the CN7 exam due to inability to understand instructions with demonstration provided or possibly lack of motivation She did not rotate her head and when asked why she responded yes to the question of pain Sensation grossly intact in upper and lower extremities bilaterally She was unable to verbalize the discrimination between dull and sharp sensation, but did appear to be able to tell the difference Muscle strength was difficult to assess Hand microsoft exchange administrator was 5/5 on right, but 4/5 on left Bilateral forearm flexion and extension 3/5. Difficult to assess further because she did not attempt to provide resistance Bilateral abduction of shoulder 2/5 Plantar flexion and dorsiflexion of bilateral feet 5/5 Bilateral hip flexion and extension 4/5 Subjective/Events-last exam Pt was doing pretty well but had an aspiration episode when she was slumped in bed eating breakfast fed by her . came out very concerned that she was choking and Brielle was able to manage that appropriately but upon further questioning from my medical student he does have 24/ care, he works outside the home full-time and Pt would need 24/ supervision hopefully in a penitentiary but he seems to not be willing to do that so will need to inquire further but she will need 24/ coverage, not just home health 3x a week for two hours each. Still focused on urinary output and I told him her urinary output is adequate and her labs remain stable, she is not dehydrated either on labs or clinical status so he is to focus on speech therapy, dysphagia and aspiration risk improvement. Asked about lactic acid and that is not checked on a regular basis and she is not septic. 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 mill operator therapy notes Review of Systems General: Fatigue HEENT: Dysphasia Neurological: Weakness, Numbness, Incoordination, Change in speech, Confusion Objective Exam Vital Signs Vital Signs Date Time Temp Pulse Resp B/P (MAP) Pulse Ox O2 Delivery O2 Flow Rate FiO2 08/15/19 17:42 36.5 61 14 110/82 (91) 99 Room Air 0.00 0.00 Capillary Refill : General Appearance: No Apparent Distress, WD/WN, Chronically ill HEENT: PERRL/EOMI, Normal ENT Inspection, Pharynx Normal, Moist Mucous Membranes Neck: Full Range of Motion, Normal Inspection, Non Tender, Supple Respiratory: Chest Non Tender, Lungs Clear, Normal Breath Sounds, No Accessory Muscle Use, No Respiratory Distress Cardiovascular: Regular Rate, Rhythm, No Edema, No Gallop, No JVD, No Murmur Gastrointestinal: Normal Bowel Sounds, No Organomegaly, No Pulsatile Mass, Non Tender, Soft Back: Normal Inspection, No CVA Tenderness, No Vertebral Tenderness Extremity: Normal Capillary Refill, Normal Inspection, Normal Range of Motion (contractures and weakness limits exam), Non Tender, No Calf Tenderness, No Pedal Edema Neurologic/Psychiatric: Alert, Oriented x3, No Motor/Sensory Deficits, Normal Mood/Affect, Depressed Affect, Motor Weakness (generalized) Skin: Normal Color, Warm/Dry Lymphatic: No Adenopathy Results/Procedures Lab Patient resulted labs reviewed. FIM Transfers Therapy Code Descriptions/Definitions Functional [place] Measure: 0=Not Assessed/NA 4=Minimal Assistance 1=Total Assistance 5=Supervision or Setup 2=Maximal Assistance 6=Modified [place] 3=Moderate Assistance 7=Complete IndependenceSCALE: Activities may be completed with or without assistive devices. 9-Mcpqlvsjis-ichdzcv completes the activity by him/herself with no assistance from a helper. 5-Set-up or Clean-up Assistance-helper sets up or cleans up; patient completes activity. [place] assists only prior to or following the activity. 4-Supervision or Touching Assistance-helper provides verbal cues and/or touching/steadying and/or contact guard assistance as patient completes activity. Assistance may be provided throughout the activity or intermittently. 3-Partial/Moderate Assistance-helper does LESS THAN HALF the effort. [place] lifts, holds or supports trunk or limbs, but provides less than half the effort. 2-Substantial/Maximal Assistance-helper does MORE THAN HALF the effort. [place] lifts or holds trunk or limbs and provides more than half the effort. 7-Mktjgkvmx-vdscqh does ALL the effort. Patient does none of the effort to complete the activity. Or, the assistance of 2 or more helpers is required for the patient to complete the activity. If activity was not attempted, code reason: 7-Patient Refused. 9-Not Applicable-not attempted and the patient did not perform the activity before the current illness, exacerbation or injury. 10-Not Attempted due to Environmental Limitations-(lack of equipment, weather restraints, etc.). 88-Not Attempted due to Medical Conditions or Safety Concerns. Transfers (B, C, W/C) (FIM): 2 Roll Left to Right (QC): 2 Sit to Lying (QC): 2 Sit to Stand (QC): 2 Chair/[place]oi-[place]ed[place] Xfer(QC): 2 Car Transfer (QC): 2 Gait Training Does the Patient Walk?: Yes Walk 10 feet (QC): 88 (unable to initiate gait this visit. ) Walk 50 ft with 2 Turns(QC): 88 Walk 150 ft (QC): 88 Walking 10ft/uneven surface-QC: 88 Gait Assistive Device: Parallel Bars Wheelchair Training Does the Pt Use a Wheelchair?: Yes Wheel 50 ft with 2 turns (QC): 2 (depenedent for wc mobiltiy at this time due to functional weakness) Wheel 150 ft (QC): 2 Type of Wheelchair: Manual Stair Training 1 Step (curb) (QC): 88 4 Steps (QC): 88 12 Steps (QC): 88 Balance Picking up an Object (QC): 88 ADL-Treatment Oral Hygiene (QC): 2 Shower/Bathe Self (QC): 2 Upper Body Dressing (QC): 2 Lower Body Dressing (QC): 2 On/Off Footwear (QC): 1 Toilet Transfer (QC): 2 Assessment/Plan Assessment and Plan Assess & Plan/Chief Complaint Assessment: CVA MS severe Chronic debility UTI Loose stools holding laxatives Acute dysphagia episode appears to be an aspiration risk Plan: CVA care BP meds IRF protocol Prognosis overall poor but try to lessen burden at DC home Needs 24/05 care (1) CVA (cerebral vascular accident) (2) Infarction of thalamus Status: Acute (3) Left parietal lobe lesion Status: Acute (4) Hypertensive emergency Status: Resolved Resolution Date/Time: 08/09/19 @ 11:07 (5) Acute kidney injury Status: Acute (6) History of stroke Status: Chronic (7) HTN (hypertension) Status: Acute (8) Multiple sclerosis Status: Chronic (9) UTI (urinary tract infection) Status: Acute (10) Hyperlipidemia Status: Chronic (11) Generalized weakness Status: Acute (12) Insulin dependent diabetes mellitus Status: Chronic (13) Hypomagnesemia Status: Acute (14) Hypokalemia Status: Acute (15) Confusion (16) At risk for aspiration (17) Poor prognosis (18) Need for continuous supervision FAIZA JOLLEY DO Aug 15, 2019 09:25
--- NOTE | 2019-08-15 12:00 | Occupational Ther Daily Note ---
OT Current Status-Daily Note Subjective Pt alert, lying in bed. Pt vocalized agreement to participate in therapy. agrees to therapy. Pt unable form words during treatment session. Mental Status/Objective Patient Orientation: Person, Place, Non-Verbal/Aphasic, Time, Situation Attachments: IV ADL-Treatment OT/PT co-treat, skills of 2 clinicians required for instruction and techniques for safe transfer, ADLs, standing and wt bearing through UE's. PT working in functional transfers, standing and BLE strengthening. OT working on ADL's, functional transfers, BUE strengthening and positioning UE's while standing. Pt's agrees to shower. Assist x2 for supine to EOB. Pt attempted to lift B UE's to assist with bathing though unable to grasp and hold onto washclo th. Sitting on rolling shower chair with cutout, pt was dependent with bathing and dressing. See PT's notes for standing. After therapy, pt sitting in recliner with call light/phone in reach. and nrsg present in room. All needs met in room. Therapy Code Descriptions/Definitions Functional [place] Measure: 0=Not Assessed/NA 4=Minimal Assistance 1=Total Assistance 5=Supervision or Setup 2=Maximal Assistance 6=Modified [place] 3=Moderate Assistance 7=Complete IndependenceSCALE: Activities may be completed with or without assistive devices. 1-Sabvrihlah-vlungke completes the activity by him/herself with no assistance from a helper. 5-Set-up or Clean-up Assistance-helper sets up or cleans up; patient completes activity. [place] assists only prior to or following the activity. 4-Supervision or Touching Assistance-helper provides verbal cues and/or touching/steadying and/or contact guard assistance as patient completes activity. Assistance may be provided throughout the activity or intermittently. 3-Partial/Moderate Assistance-helper does LESS THAN HALF the effort. [place] lifts, holds or supports trunk or limbs, but provides less than half the effort. 2-Substantial/Maximal Assistance-helper does MORE THAN HALF the effort. [place] lifts or holds trunk or limbs and provides more than half the effort. 4-Ivmjugmyd-tqqdzb does ALL the effort. Patient does none of the effort to complete the activity. Or, the assistance of 2 or more helpers is required for the patient to complete the activity. If activity was not attempted, code reason: 7-Patient Refused. 9-Not Applicable-not attempted and the patient did not perform the activity before the current illness, exacerbation or injury. 10-Not Attempted due to Environmental Limitations-(lack of equipment, weather restraints, etc.). 88-Not Attempted due to Medical Conditions or Safety Concerns. Shower/Bathe Self (QC): 2 Upper Body Dressing (QC): 2 Lower Body Dressing (QC): 1 OT Short Term Goals Short Term Goals 1=Demonstrate adherence to instructed precautions during ADL tasks. 2=Patient will verbalize/demonstrate understanding of assistive devices/modifications for ADL. 3=Patient will improve strength/tolerance for activity to enable patient to perform ADL's. OT Prison Goals Stone [employer]ver Goals Time Frame: Sep 01, 2019 Eating (QC): 5 Oral Hygiene (QC): 5 Shower/Bathe Self (QC): 3 Upper Body Dressing (QC): 4 Lower Body Dressing (QC): 3 On/Off Footwear (QC): 3 Toileting Hygiene (QC): 4 (CGA) Toilet/Commode Transfer (QC): 4 (CGA) Additional Goals: 1-Demonstrate ADL Tasks, 2-Verbalize Understanding, 3-ImproveStrength/Shiv 1=Demonstrate adherence to instructed precautions during ADL tasks. 2=Patient will verbalize/demonstrate understanding of assistive devices/modifications for ADL. 3=Patient will improve strength/tolerance for activity to enable patient to perform ADL's. OT Education/Plan Problem List/Assessment Assessment: Decreased Activ Tolerance, Decreased Safety Aware, Decreased UE Strength, Dependent Transfers, Impaired Coordination, Impaired Funct Balance, Impaired Self-Care Skills, Restricted Funct UE ROM Pt to benefit from skilled OT intervention for ADL training, transfers, strengthening, and safety education to maximize level of function and decrease caregiver burden. Discharge Recommendations Plan/Recommendations: Continue POC Treatment Plan/Plan of Care Patient would benefit from OT for education, treatment and training to promote independence in ADL's, mobility, safety and/or upper extremity function for AD L's. Plan of Care: ADL Retraining, Functional Mobility, Group Exercise/Act as Ind, UE Funct Exercise/Act, UE Neuromus Re-Ed/Coord Treatment Duration: Sep 01, 2019 Frequency: At least 5 of 7 days/Wk (IRF) Estimated Hrs Per Day: 1.5 hours per day Rehab Potential: Fair Time/GCodes Start Time: 10:45 Stop Time: 12:00 Total Time Billed (hr/min): 75 Billed Treatment Time 1 visit-ADL 4 (55 min) FA 1 (20 min) JORGE TERRY Aug 15, 2019 12:00
--- NOTE | 2019-08-15 12:16 | Physical Therapy Daily Note ---
PT Daily Note-Current Subjective Pt alert, lying in bed. Pt vocalized agreement to participate in therapy. agrees to therapy. Pt unable form words during treatment session. Mental Status Patient Orientation: Person, Place, Non-Verbal/Aphasic, Time, Situation Attachments: IV Transfers SCALE: Activities may be completed with or without assistive devices. 1-Colnejrsxl-udbroeu completes the activity by him/herself with no assistance from a helper. 5-Set-up or Clean-up Assistance-helper sets up or cleans up; patient completes activity. [place] assists only prior to or following the activity. 4-Supervision or Touching Assistance-helper provides verbal cues and/or touching/steadying and/or contact guard assistance as patient completes activity. Assistance may be provided throughout the activity or intermittently. 3-Partial/Moderate Assistance-helper does LESS THAN HALF the effort. [place] lifts, holds or supports trunk or limbs, but provides less than half the effort. 2-Substantial/Maximal Assistance-helper does MORE THAN HALF the effort. [place] lifts or holds trunk or limbs and provides more than half the effort. 8-Kjjzpprfu-qbpngi does ALL the effort. Patient does none of the effort to complete the activity. Or, the assistance of 2 or more helpers is required for the patient to complete the activity. If activity was not attempted, code reason: 7-Patient Refused. 9-Not Applicable-not attempted and the patient did not perform the activity before the current illness, exacerbation or injury. 10-Not Attempted due to Environmental Limitations-(lack of equipment, weather restraints, etc.). 88-Not Attempted due to Medical Conditions or Safety Concerns. Roll Left to Right (QC): 1 Sit to Lying (QC): 1 Sit to Stand (QC): 1 Chair/Hdz-lj-Rxuar Xfer(QC): 1 Bed to/from Chair: 1 Weight Bearing Right Lower Extremity: Right Weight Bearing/Tolerated Left Lower Extremity: Left Weight Bearing/Tolerated Wheelchair Training Does the Pt Use a Wheelchair?: Yes Wheelchair Distance: 3=150 ft Distance: 150' x2 Wheel 50 ft with 2 turns (QC): 1 Wheel 150 ft (QC): 1 Type of Wheelchair: Manual Treatments OT/PT co-treat, skills of 2 clinicians required for instruction and techniques for safe transfer, ADLs, standing and wt bearing through UE's. PT working in functional transfers, standing and BLE strengthening. OT working on ADL's, functional transfers, BUE strengthening and positioning UE's while standing. Pt's agrees to shower. Assist x2 for supine to EOB. Pt attempted to lift B UE's to assist with bathing though unable to grasp and hold onto washcloth. Sitting on rolling shower chair with cutout, pt was dependent with bathing and dressing. Pt stood from W/C at //bars x3 at Max A which OT hold hands in place for collections assistant strength. After therapy, pt sitting in recliner with call light/phone in reach. and nrsg present in room. All needs met in room. Assessment Current Status: Fair Progress Pt continues to remain nonverbal and dependent for transfers and dressing. PT Senior Living Goals Beef Selector Goals PT Beef Selector Goals Time Frame: Sep 08, 2019 Sit to Lying (QC): 5 Lying-Sitting on Side/Bed(QC): 5 Sit to Stand (QC): 5 Roll Left to Right (QC): 5 Chair/Gzt-hh-Ugkci Xfer(QC): 5 Car Transfer (QC): 5 Does the Patient Walk: No and Walking Goal IS indicated Walk 10 feet (QC): 4 Walk 10ft-Uneven Surface(QC): 4 Walk 50ft with 2 Turns (QC): 4 Walk 150 ft (QC): 4 Gait Assistive Device: FWW Wheel 50 feet with 2 turns (QC: 4 1 Step (curb) (QC): 4 4 Steps (QC): 4 12 Steps (QC): 88 Picking up an Object (QC): 88 PT Plan Problem List Problem List: Activity Tolerance, Functional Strength, Safety, Balance, Gait, Transfer, Bed Mobility, ROM Treatment/Plan Treatment Plan: Continue Plan of Care Treatment Plan: Bed Mobility, Education, Functional Activity Shiv, Functional Strength, Group Therapy, Gait, Safety, Therapeutic Exercise, Transfers Treatment Duration: Sep 08, 2019 Frequency: At least 5 of 7 days/Wk (IRF) Estimated Hrs Per Day: 1.5 hours per day Patient and/or Family Agrees t: Yes Safety Risks/Education Patient Education: Transfer Techniques, Correct Positioning, W/C Management, Safety Issues Teaching Recipient: Patient Teaching Methods: Discussion Response to Teaching: Reinforcement Needed Time/GCodes Time In: 1100 Time Out: 1200 Total Billed Treatment Time: 60 Total Billed Treatment 1, FA x3 (45m) & GT (15m) Co-treat with OT for 60m SABA STEINBERG TEAM TRUCK DRIVER Aug 15, 2019 12:16
--- NOTE | 2019-08-15 14:58 | Physical Therapy Daily Note ---
PT Daily Note-Current Subjective Pt sitting up in recliner upon arrival. Pt does not verbally agree but gives slight nod. Pt appears very lethargic this afternoon, difficult to keep awake. Mental Status Patient Orientation: Person, Place, Non-Verbal/Aphasic Transfers SCALE: Activities may be completed with or without assistive devices. 6-Hewkitmlby-cmtkrut completes the activity by him/herself with no assistance from a helper. 5-Set-up or Clean-up Assistance-helper sets up or cleans up; patient completes activity. [place] assists only prior to or following the activity. 4-Supervision or Touching Assistance-helper provides verbal cues and/or touching/steadying and/or contact guard assistance as patient completes activity. Assistance may be provided throughout the activity or intermittently. 3-Partial/Moderate Assistance-helper does LESS THAN HALF the effort. [place] lifts, holds or supports trunk or limbs, but provides less than half the effort. 2-Substantial/Maximal Assistance-helper does MORE THAN HALF the effort. [place] lifts or holds trunk or limbs and provides more than half the effort. 7-Znhtmfdvo-eqegqr does ALL the effort. Patient does none of the effort to complete the activity. Or, the assistance of 2 or more helpers is required for the patient to complete the activity. If activity was not attempted, code reason: 7-Patient Refused. 9-Not Applicable-not attempted and the patient did not perform the activity before the current illness, exacerbation or injury. 10-Not Attempted due to Environmental Limitations-(lack of equipment, weather restraints, etc.). 88-Not Attempted due to Medical Conditions or Safety Concerns. Weight Bearing Right Lower Extremity: Right Weight Bearing/Tolerated Left Lower Extremity: Left Weight Bearing/Tolerated Treatments BUSINESS BANKING OFFICER discusses pt education items with pt and sp. These include benefits of ARU vs SNF, progress during tx session, progressing health concerns. Pt is difficult to keep engaged & awake during Rx. Sp is concerned with possible backslide with previous progress made. BUSINESS BANKING OFFICER reassures both and reiterates that pt is both a Therapy pt as well as Medical needs. Assessment Current Status: Poor Progress Pt lethargic during Rx and difficult to keep awake. PT Short Term Goals Short Term Goals Wheelchair Distance: 150' x2 PT Engine Emission Technician Goals Jail Goals PT Jail Goals Time Frame: Sep 08, 2019 Sit to Lying (QC): 5 Lying-Sitting on Side/Bed(QC): 5 Sit to Stand (QC): 5 Roll Left to Right (QC): 5 Chair/Bgc-qd-Udgyc Xfer(QC): 5 Car Transfer (QC): 5 Does the Patient Walk: No and Walking Goal IS indicated Walk 10 feet (QC): 4 Walk 10ft-Uneven Surface(QC): 4 Walk 50ft with 2 Turns (QC): 4 Walk 150 ft (QC): 4 Gait Assistive Device: FWW Wheel 50 feet with 2 turns (QC: 4 1 Step (curb) (QC): 4 4 Steps (QC): 4 12 Steps (QC): 88 Picking up an Object (QC): 88 PT Plan Problem List Problem List: Activity Tolerance, Functional Strength, Safety, Balance, Gait, Transfer, Bed Mobility Treatment/Plan Treatment Plan: Continue Plan of Care Treatment Plan: Bed Mobility, Education, Functional Activity Shiv, Functional Strength, Group Therapy, Gait, Safety, Therapeutic Exercise, Transfers Treatment Duration: Sep 08, 2019 Frequency: At least 5 of 7 days/Wk (IRF) Estimated Hrs Per Day: 1.5 hours per day Patient and/or Family Agrees t: Yes Safety Risks/Education Patient Education: Transfer Techniques, Reviewed Precautions, Correct Positioning, Instructions to Caregiver, Safety Issues Teaching Recipient: Patient, Significant Other Teaching Methods: Discussion Response to Teaching: Verbalize Understanding Time/GCodes Time In: 1330 Time Out: 1355 Total Billed Treatment Time: 25 Total Billed Treatment 1, FA x2 (25m) SABA STEINBERG BUSINESS BANKING OFFICER Aug 15, 2019 14:58
[2019-08-15 15:47] VITALS: BP 110/82
[2019-08-15 17:42] VITALS: BP 110/82
[2019-08-15] MEDS: MIRTAZAPINE 15 MG (REMERON) TAB PO SCH (21:47)
[2019-08-16] MEDS: inSUlin ASPART (NovoLOG) 1 UNIT/0.01 ML (CHARGE PER UNIT) SC SCH ×4 (04:48→20:56)
[2019-08-16 06:04] VITALS: BP 105/66
[2019-08-16] MEDS: KCL 10 MEQ TAB (MICRO K) PO SCH (06:36)
--- NOTE | 2019-08-16 08:29 | Occupational Ther Daily Note ---
OT Current Status-Daily Note Subjective Pt lying in bed, difficult to wake and keep awake. Nrsg stated that they had been in room earlier and had difficulty pt taking meds. Unable to assess if pt has pain. BP-110/68 Mental Status/Objective Patient Orientation: Person, Place, Time, Situation Attachments: IV ADL-Treatment Pt attempted to use UE to roll side to side, max A for rolling and staying on side. Dependent with donning lower body clothing in bed. Max A supine to EOB. Mod A sitting EOB. Max A with SPT, pt did shuffle feet during transfer. Max A for upper body dressing, did attempt to lift B UE to thread arms and pull shirt down in front. Pt attempted to brush teeth, grimaced and then just held toothbrush, BLOUNT finished oral care. Dependent with eating though pt only drank a sip of OJ and 4 miniscule bites of cream of wheat. Pt's posture throughout therapy was rounded back, hips posteriorly tilted and head in full flexion. Attempted to reposition pt. After therapy, pt sitting in recliner, reclined back and feet elevated with call light in reach. Therapy Code Descriptions/Definitions Functional [place] Measure: 0=Not Assessed/NA 4=Minimal Assistance 1=Total Assistance 5=Supervision or Setup 2=Maximal Assistance 6=Modified [place] 3=Moderate Assistance 7=Complete IndependenceSCALE: Activities may be completed with or without assistive devices. 6-Yuodsxesme-qyljski completes the activity by him/herself with no assistance from a helper. 5-Set-up or Clean-up Assistance-helper sets up or cleans up; patient completes activity. [place] assists only prior to or following the activity. 4-Supervision or Touching Assistance-helper provides verbal cues and/or to uching/steadying and/or contact guard assistance as patient completes activity. Assistance may be provided throughout the activity or intermittently. 3-Partial/Moderate Assistance-helper does LESS THAN HALF the effort. [place] lifts, holds or supports trunk or limbs, but provides less than half the effort. 2-Substantial/Maximal Assistance-helper does MORE THAN HALF the effort. [place] lifts or holds trunk or limbs and provides more than half the effort. 6-Fezyloyoe-zrsrlx does ALL the effort. Patient does none of the effort to complete the activity. Or, the assistance of 2 or more helpers is required for the patient to complete the activity. If activity was not attempted, code reason: 7-Patient Refused. 9-Not Applicable-not attempted and the patient did not perform the activity before the current illness, exacerbation or injury. 10-Not Attempted due to Environmental Limitations-(lack of equipment, weather restraints, etc.). 88-Not Attempted due to Medical Conditions or Safety Concerns. Eating (QC): 1 Oral Hygiene (QC): 2 Upper Body Dressing (QC): 2 Lower Body Dressing (QC): 1 OT Short Term Goals Short Term Goals 1=Demonstrate adherence to instructed precautions during ADL tasks. 2=Patient will verbalize/demonstrate understanding of assistive devices/modif ications for ADL. 3=Patient will improve strength/tolerance for activity to enable patient to perform ADL's. OT Gas Leak Tester Goals Shelter Goals Time Frame: Sep 01, 2019 Eating (QC): 5 Oral Hygiene (QC): 5 Shower/Bathe Self (QC): 3 Upper Body Dressing (QC): 4 Lower Body Dressing (QC): 3 On/Off Footwear (QC): 3 Toileting Hygiene (QC): 4 (CGA) Toilet/Commode Transfer (QC): 4 (CGA) Additional Goals: 1-Demonstrate ADL Tasks, 2-Verbalize Understanding, 3- ImproveStrength/Shiv 1=Demonstrate adherence to instructed precautions during ADL tasks. 2=Patient will verbalize/demonstrate understanding of assistive devices/modifications for ADL. 3=Patient will improve strength/tolerance for activity to enable patient to perform ADL's. OT Education/Plan Problem List/Assessment Assessment: Decreased Activ Tolerance, Decreased Safety Aware, Decreased UE Strength, Impaired Bed Mobility, Impaired Coordination, Impaired Funct Balance, Impaired Self-Care Skills, Restricted Funct UE ROM Pt to benefit from skilled OT intervention for ADL training, transfers, strengthening, and safety education to maximize level of function and decrease caregiver burden. Discharge Recommendations Plan/Recommendations: Continue POC Treatment Plan/Plan of Care Patient would benefit from OT for education, treatment and training to promote independence in ADL's, mobility, safety and/or upper extremity function for ADL's. Plan of Care: ADL Retraining, Functional Mobility, Group Exercise/Act as Ind, UE Funct Exercise/Act, UE Neuromus Re-Ed/Coord Treatment Duration: Sep 01, 2019 Frequency: At least 5 of 7 days/Wk (IRF) Estimated Hrs Per Day: 1.5 hours per day Rehab Potential: Fair Time/GCodes Start Time: 07:00 Stop Time: 08:15 Total Time Billed (hr/min): 75 Billed Treatment Time 1 visit-ADL 5 (75 min) JORGE TERRY Aug 16, 2019 08:29
[2019-08-16] MEDS: LOSARTAN 100 MG (COZAAR) TABLET PO SCH (09:11)
[2019-08-16] MEDS: meTOprolol TARTRATE 50 MG (LOPRESSOR) TAB PO SCH ×2 (09:11→21:12)
[2019-08-16] MEDS: HYDROCHLOROTHIAZIDE 25 MG (HCTZ) TAB PO SCH (09:11)
[2019-08-16] MEDS: amLODIPine 10 MG (NORVASC) TAB PO SCH (09:11)
[2019-08-16] MEDS: ASPIRIN E.C. 81 MG (ECOTRIN) TAB PO SCH (09:12)
[2019-08-16] MEDS: SENNA W/DOCUSATE (SENOKOT S) TABLET PO SCH ×2 (09:12→21:12)
[2019-08-16] MEDS: CLOPIDOGREL 75 MG (PLAVIX) TABLET PO SCH (09:12)
[2019-08-16] MEDS: cloNIDine 0.2 MG (CATAPRES) TAB PO SCH ×3 (09:12→17:25)
[2019-08-16] MEDS: DOCUSATE SODIUM 100 MG (COLACE) CAP PO SCH ×2 (09:12→21:26)
[2019-08-16] MEDS: ceTIRizine 10 MG (ZyrTEC) TAB NON-FORMULARY PO SCH (09:13)
--- NOTE | 2019-08-16 09:26 | Cardiology Progress Note ---
Subjective Date Seen by Provider: Aug 16, 2019 Time Seen by Provider: 08:25 Subjective/Events-last exam Patient asleep in chair, no apparent distress Focused Exam Respiratory: Chest Non Tender, Lungs Clear, Normal Breath Sounds, No Accessory Muscle Use, No Respiratory Distress Cardiovascular: Regular Rate, Rhythm, No Edema, No Gallop, No JVD, No Murmur Objective-Cardiology Exam Last Set of Vital Signs Vital Signs 08/15/19 08/16/19 08/16/19 17:42 06:04 09:00 Temp 36.8 Pulse 59 Resp 18 B/P (MAP) 105/66 (79) Pulse Ox 99 O2 Delivery Room Air O2 Flow Rate 0.00 0.00 Capillary Refill : I&O Intake and Output0 08/16/19 00:00 Intake Total 500 ml Output Total 300 ml Balance 200 ml Intake Oral 500 ml Output Urine Total 300 ml # Voids 3 General: Alert, Cooperative, No Acute Distress Lungs: Clear to Auscultation, Normal Air Movement Heart: Regular Rate, No Murmurs Abdomen: Soft, No Tenderness Extremities: No Edema, No Tenderness/Swelling Neuro: Other (Unable to speak other than yes and no, mumble incoherent speech otherwise) Psych/Mental Status: Other (Unclear whether she fully understands some questions, flat affect) A/P-Cardiology Admission Diagnosis AMS Hx CVA HTN UTI Assessment/Plan Acute change in mental status, recurrent CVA with thalamic infarction, had extensive neurologic history with history of CVA and TIA in the past with residual left-sided weakness, last year had workup for multiple sclerosis and has reported that the workup was negative, had multiple hospitalization with change in mental status due to electrolyte imbalance. Her MRI on this admission is showing a new thalamic infarction. Managed by primary care physician, started on aspirin and Plavix Labile hypertension with hypertensive emergency, better blood pressure control at this time, continue to monitor Workup for secondary hypertension was initiated, results are pending Hypokalemia, hypomagnesemia, replaced, improved, continue to monitor. UTI, receiving antibiotic, managed by primary care team History of CVA and TIA, baseline some degree of confusion Diabetes mellitus, followed and managed by primary care physician Clinical Quality Measures DVT/VTE Risk/Contraindication: Risk Factor Score Per Nursin RFS Level Per Nursing on Admit: 4+=Very High CASSIE WHITE Aug 16, 2019 09:26
--- NOTE | 2019-08-16 09:28 | Speech Therapy Daily Note ---
Speech Daily Progress Note Subjective Date Seen by Provider: Aug 16, 2019 Time Seen by Provider: 00:30 Patient was up in recliner resting, however she kept falling asleep during session. Objective Patient was downgraded to Dysphagia I with honey consistency liquids and crushed meds. She is not to have anything by mouth unless she is alert and able to swallow effectively and safely. Assessment Assessment Current Status: Regressing Treatment Plan Continue Plan of Care Speech Short Term Goals Short Term Goals Short Term Goals 1) Patient will complete cognitive tasks at 80% or greater with minimal cuing. 2) Patient will complete speech tasks at 80% or greater with minimal cuing. Speech Residential Goals Residential Goals Patient will improve speech and cognitive level of function in order to meet her communication and independence needs. Speech-Plan Patient/Family Goals Patient/Family Goals: Patient's plans on taking her home, however due to her decline in function she will most likely go to SNF or hospice. Treatment Plan Speech Therapy Treatment Plan: Continue Plan of Care Patient exhibited a significant choking episode yesterday morning due to feeding while patient was in bed with head dropped down. Nursing also reports she had medication in her mouth that had not been swallowed. BLOUNT reported patient has sores in her mouth and was unable to tolerate oral care very well this am. Treatment Duration: Aug 25, 2019 Frequency: 5 times per week Estimated Hrs Per Day: .5 hour per day Rehab Potential: Fair Barriers to Learning: Patient is declining in function. Unable to participate well with therapy. Pt/Family Agrees to Plan: Yes Safety Risks/Education Teaching Recipient: Patient Teaching Methods: Discussion Response to Teaching: Unable to Return Demonstration, Reinforcement Needed Education Topics Provided: Safety of oral intake and diet downgrade. Time Speech Therapy Time In: 08:15 Speech Therapy Time Out: 08:45 Total Billed Time: 30 Billed Treatment Time 1, RUTH Guerita AYAD MEJIAJERMAINE KELLY Aug 16, 2019 09:28
--- NOTE | 2019-08-16 09:31 | PM&R Progress Note ---
Subjective HPI/CC On Admission Date Seen by Provider: Aug 16, 2019 Time Seen by Provider: 08:30 Chief complaint: CVA HPI: This is a 68yoWF known to me from 10 months ago in inpatient rehab for one month following a stroke-like condition that caused progression of multiple scrlerosus who resides at home with her who is very involved in her care, who presents to the inpatient rehab in need of rehabilitation following a stroke and subsequent weakness. Imaging scan confirmed stroke. At this current time she is on a modified diet and bowels are moving a little bit too loosely but she is motivated and ready to be admitted to inpatient rehab to begin a recovery to ultimately return home to lessen the burden on her . CC/HPI per YAIR Duarte CC: UTI w/ confusion, Stroke, Multiple Sclerosis HPI: Pt was not able to communicate very well most of the interview. She did respond yes and no to several questions she was not able to state her name or birthday. Her was the primary historian. He stated that she had been in the hospital and rehab unit previously from which she was able to return home using a walker. She was brought in to the hospital this visit for a UTI that was causing confusion along with hypertension. During her time in the hospital she had an MRI completed that showed evidence of multiple sclerosis with lesions. The MRI also showed she had a stroke. She is unable to communicate what her current struggles are regarding her neurological deficiencies. She is currently unable/unmotivated to sit up in bed unassisted. She reports being able to walk with a walker before entering the hospital and would like to be able to return to that level of function. Her states that she previously had similar symptoms that appeared to be related to her metformin causing lactic acid and her symptoms reportedly became better. The seemed to not fully understand the diagnosis of MS stating that metformin lactic acidosis can mimic MS. The patient was able to understand most of the questions, but not able to respond to questions do to inability to find words. Neuro Exam: EOMI She did not perform the CN7 exam due to inability to understand instructions with demonstration provided or possibly lack of motivation She did not rotate her head and when asked why she responded yes to the question of pain Sensation grossly intact in upper and lower extremities bilaterally She was unable to verbalize the discrimination between dull and sharp sensation, but did appear to be able to tell the difference Muscle strength was difficult to assess Hand chip drier was 5/5 on right, but 4/5 on left Bilateral forearm flexion and extension 3/5. Difficult to assess further because she did not attempt to provide resistance Bilateral abduction of shoulder 2/5 Plantar flexion and dorsiflexion of bilateral feet 5/5 Bilateral hip flexion and extension 4/5 Subjective/Events-last exam Patient now with minimal proptosis the patient in any therapy Had a near unresponsive episode yesterday when her was here and he definitely had a panic situation just like yesterday morning when she had a choking episode eating food. I spoke with Dr. Goldsmith office and updated them on the plan for longterm placement and likely hospice Had a conversation with her and palliative care nurse Keith and he seemed to be very reasonable and understood the possibility of no recovery potential and will need to move to a intermediate facility to see if she can improve in that type of less intense environment. 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 with endocrinologist therapy notes Review of Systems Neurological: Weakness, Numbness, Incoordination Objective Exam Vital Signs Vital Signs Date Time Temp Pulse Resp B/P (MAP) Pulse Ox O2 Delivery O2 Flow Rate FiO2 08/16/19 09:00 99 Room Air 08/16/19 06:04 36.8 59 18 105/66 (79) 08/15/19 17:42 0.00 0.00 Capillary Refill : General Appearance: Chronically ill, Other (lethargic, minimal participtation) HEENT: PERRL/EOMI Respiratory: Chest Non Tender, Lungs Clear, No Accessory Muscle Use, No Respiratory Distress, Decreased Breath Sounds Cardiovascular: Regular Rate, Rhythm, No Edema, No Gallop, No JVD, No Murmur Gastrointestinal: Normal Bowel Sounds, No Organomegaly, No Pulsatile Mass, Non Tender, Soft Back: Normal Inspection, No CVA Tenderness, No Vertebral Tenderness Extremity: Normal Capillary Refill, Normal Inspection, Normal Range of Motion (contractures and weakness limits exam), Non Tender, No Calf Tenderness, No Pedal Edema Neurologic/Psychiatric: Alert, Depressed Affect, Disoriented, Motor Weakness (generalized) Skin: Normal Color, Warm/Dry Lymphatic: No Adenopathy Results/Procedures Lab Patient resulted labs reviewed. FIM Transfers Therapy Code Descriptions/Definitions Functional [place] Measure: 0=Not Assessed/NA 4=Minimal Assistance 1=Total Assistance 5=Supervision or Setup 2=Maximal Assistance 6=Modified [place] 3=Moderate Assistance 7=Complete IndependenceSCALE: Activities may be completed with or without assistive devices. 7-Jkaadrlhrj-hdbqwzl completes the activity by him/herself with no assistance from a helper. 5-Set-up or Clean-up Assistance-helper sets up or cleans up; patient completes activity. [place] assists only prior to or following the activity. 4-Supervision or Touching Assistance-helper provides verbal cues and/or touching/steadying and/or contact guard assistance as patient completes activity. Assistance may be provided throughout the activity or intermittently. 3-Partial/Moderate Assistance-helper does LESS THAN HALF the effort. [place] lifts, holds or supports trunk or limbs, but provides less than half the effort. 2-Substantial/Maximal Assistance-helper does MORE THAN HALF the effort. [place] lifts or holds trunk or limbs and provides more than half the effort. 9-Gvliklmgc-qknjmt does ALL the effort. Patient does none of the effort to complete the activity. Or, the assistance of 2 or more helpers is required for the patient to complete the activity. If activity was not attempted, code reason: 7-Patient Refused. 9-Not Applicable-not attempted and the patient did not perform the activity before the current illness, exacerbation or injury. 10-Not Attempted due to Environmental Limitations-(lack of equipment, weather restraints, etc.). 88-Not Attempted due to Medical Conditions or Safety Concerns. Transfers (B, C, W/C) (FIM): 2 Roll Left to Right (QC): 1 Sit to Lying (QC): 1 Sit to Stand (QC): 1 Chair/Xrz-zq-Mvdfz Xfer(QC): 1 Bed to/from Chair: 1 Car Transfer (QC): 2 Gait Training Does the Patient Walk?: Yes Walk 10 feet (QC): 88 (unable to initiate gait this visit. ) Walk 50 ft with 2 Turns(QC): 88 Walk 150 ft (QC): 88 Walking 10ft/uneven surface-QC: 88 Gait Assistive Device: Parallel Bars Wheelchair Training Does the Pt Use a Wheelchair?: Yes Wheelchair Distance: 3=150 ft Distance: 150' x2 Wheel 50 ft with 2 turns (QC): 1 Wheel 150 ft (QC): 1 Type of Wheelchair: Manual Stair Training 1 Step (curb) (QC): 88 4 Steps (QC): 88 12 Steps (QC): 88 Balance Picking up an Object (QC): 88 ADL-Treatment Eating (QC): 1 Oral Hygiene (QC): 2 Shower/Bathe Self (QC): 2 Upper Body Dressing (QC): 2 Lower Body Dressing (QC): 1 On/Off Footwear (QC): 1 Toilet Transfer (QC): 2 Assessment/Plan Assessment and Plan Assess & Plan/Chief Complaint Assessment: CVA MS severe Chronic debility UTI Loose stools holding laxatives Acute dysphagia episode appears to be an aspiration risk Plan: CVA care BP meds IRF protocol Prognosis overall poor Needs 24/05 care Patient will need longterm placement and CODE STATUS addressed and try to participate in skilled care and if she fails that she will need hospice for end -of-life care (1) CVA (cerebral vascular accident) (2) Infarction of thalamus Status: Acute (3) Left parietal lobe lesion Status: Acute (4) Hypertensive emergency Status: Resolved Resolution Date/Time: 08/09/19 @ 11:07 (5) Acute kidney injury Status: Acute (6) History of stroke Status: Chronic (7) HTN (hypertension) Status: Acute (8) Multiple sclerosis Status: Chronic (9) UTI (urinary tract infection) Status: Acute (10) Hyperlipidemia Status: Chronic (11) Generalized weakness Status: Acute (12) Insulin dependent diabetes mellitus Status: Chronic (13) Hypomagnesemia Status: Acute (14) Hypokalemia Status: Acute (15) Confusion (16) At risk for aspiration (17) Poor prognosis (18) Need for continuous supervision FAIZA JOLLEY DO Aug 16, 2019 09:31
--- NOTE | 2019-08-16 09:51 | NUR ---
meds crushed per order and added to applesauce. pt consumes only 4 small bites of crushed pills/sauce mixture with 4 small drinks glucerna, with audible swallow sounds. pt refuses further attempts of sips and spoon offerings at this time.
--- NOTE | 2019-08-16 09:57 | Physical Therapy Daily Note ---
PT Daily Note-Current Subjective present in room and shares that he has noticed a marked decline and is concerned that she may need to TRF to another facility. Pt. up in recliner, reclined with head down, eyes partially closed and fixed. No response to verbal or tactile stimuli Pain Location: No Pain Reported Mental Status Patient Orientation: Non-Verbal/Aphasic, Unresponsive pt. does not respond to verbal or tactile stim. Pt. did cough a couple times crackly deep sound. skin feels normal temp to touch. no verbal responses or utterance Transfers SCALE: Activities may be completed with or without assistive devices. 2-Zeahdjzknj-gnqsdtc completes the activity by him/herself with no assistance from a helper. 5-Set-up or Clean-up Assistance-helper sets up or cleans up; patient completes activity. [place] assists only prior to or following the activity. 4-Supervision or Touching Assistance-helper provides verbal cues and/or touching/steadying and/or contact guard assistance as patient completes activity. Assistance may be provided throughout the activity or intermittently. 3-Partial/Moderate Assistance-helper does LESS THAN HALF the effort. [place] lifts, holds or supports trunk or limbs, but provides less than half the effort. 2-Substantial/Maximal Assistance-helper does MORE THAN HALF the effort. [place] lifts or holds trunk or limbs and provides more than half the effort. 6-Piwuqvjor-gkumdy does ALL the effort. Patient does none of the effort to complete the activity. Or, the assistance of 2 or more helpers is required for the patient to complete the activity. If activity was not attempted, code reason: 7-Patient Refused. 9-Not Applicable-not attempted and the patient did not perform the activity before the current illness, exacerbation or injury. 10-Not Attempted due to Environmental Limitations-(lack of equipment, weather restraints, etc.). 88-Not Attempted due to Medical Conditions or Safety Concerns. Weight Bearing Right Lower Extremity: Right Weight Bearing/Tolerated Left Lower Extremity: Left Weight Bearing/Tolerated Exercises Supine Ex: Ankle pumps (HC stretches ), Heel Slides, Straight leg raise, Hip abd/add Supine Reps: 15 (reclined) Assessment Current Status: Regressing pt. with no response and dependent for all mobility etc, nursing states pt. is refusing all intake and had had no out put for 24 hrs PT Short Term Goals Short Term Goals Wheelchair Distance: 150' x2 PT Assisted Goals Steam Conditioning Operator Goals PT Steam Conditioning Operator Goals Time Frame: Sep 08, 2019 Sit to Lying (QC): 5 Lying-Sitting on Side/Bed(QC): 5 Sit to Stand (QC): 5 Roll Left to Right (QC): 5 Chair/Cyb-lw-Aeono Xfer(QC): 5 Car Transfer (QC): 5 Does the Patient Walk: No and Walking Goal IS indicated Walk 10 feet (QC): 4 Walk 10ft-Uneven Surface(QC): 4 Walk 50ft with 2 Turns (QC): 4 Walk 150 ft (QC): 4 Gait Assistive Device: FWW Wheel 50 feet with 2 turns (QC: 4 1 Step (curb) (QC): 4 4 Steps (QC): 4 12 Steps (QC): 88 Picking up an Object (QC): 88 PT Plan Treatment/Plan Treatment Plan: Continue Plan of Care Treatment Plan: Bed Mobility, Education, Functional Activity Shiv, Functional Strength, Group Therapy, Gait, Safety, Therapeutic Exercise, Transfers Treatment Duration: Sep 08, 2019 Frequency: At least 5 of 7 days/Wk (IRF) Estimated Hrs Per Day: 1.5 hours per day Patient and/or Family Agrees t: Yes Time/GCodes Time In: 935 Time Out: 950 Total Billed Treatment Time: 15 Total Billed Treatment 1,EX15m WILLIAM JULIAN MOTOR VEHICLE TECHNICIAN Aug 16, 2019 09:57
--- NOTE | 2019-08-16 10:00 | NUR ---
Notified by nursing staff that patient has had a medical decline as she has had episodes of decreased responsiveness and choking episodes, resulting in downgrading of diet. Patient's at bedside. Spoke with regarding medical decline and patient's inability to tolerate intensive therapies at this time. Patient's agrees that patient cannot tolerate intensive therapies at this time. Discussed discharge options with patient's , including SNF placement and hospice. Patient's would like to speak to Dr. Kimball about the medical issues and whether or not there is chance of improvement. Patient's would also like to speak with Jesús Gill RNcareer guidance counselor. Notified both Dr. Kimball and Jesús Gill RN regarding 's request. Both will be available to meet with this morning. In the interim, patient's requests a referral be made to [facility] for SNF placement.
--- NOTE | 2019-08-16 10:00 | NUR ---
Pastoral care visit, pt in chair her at bedside, shared story of pts health struggles over the last 10 years ad how the journey has impacted him.
--- NOTE | 2019-08-16 11:29 | NUR ---
PALLIATIVE CARE CONSULT received for this patient who has suffered a stroke and was making progress until the last couple days. Long discussion with patient with Dr. Kimball initially to discuss the medical side of things and then I continued. Lots of education about hospice and this benefit. Plan is to change rehabilitation to a SNF for the slower pace. Hoping that the change of scenery will help motivate her. Hospice is left as an option for when she declines or fails to continue to improve with skilled therapies. is understanding of his options and would like to look at [facility] or return to [facility]. Will bring brochures and suggested that he interview all to determine which on is the better fit while patient is rehabilitating.
--- NOTE | 2019-08-16 13:30 | NUR ---
pt not taking meds, b/p 112/79, catapres held.
--- NOTE | 2019-08-16 13:36 | Physical Therapy Daily Note ---
PT Daily Note-Current Subjective Pt. continues not responsive and dependent for all mobility as well as feeding, dressing, bathing . Arrangements being made for TRF to SNF Transfers SCALE: Activities may be completed with or without assistive devices. 2-Orgpcjxhbl-zzdliak completes the activity by him/herself with no assistance from a helper. 5-Set-up or Clean-up Assistance-helper sets up or cleans up; patient completes activity. [place] assists only prior to or following the activity. 4-Supervision or Touching Assistance-helper provides verbal cues and/or touc brigid/steadying and/or contact guard assistance as patient completes activity. Assistance may be provided throughout the activity or intermittently. 3-Partial/Moderate Assistance-helper does LESS THAN HALF the effort. [place] lifts, holds or supports trunk or limbs, but provides less than half the effort. 2-Substantial/Maximal Assistance-helper does MORE THAN HALF the effort. [place] lifts or holds trunk or limbs and provides more than half the effort. 1-Ljtpvqzxx-skccvg does ALL the effort. Patient does none of the effort to complete the activity. Or, the assistance of 2 or more helpers is required for the patient to complete the activity. If activity was not attempted, code reason: 7-Patient Refused. 9-Not Applicable-not attempted and the patient did not perform the activity before the current illness, exacerbation or injury. 10-Not Attempted due to Environmental Limitations-(lack of equipment, weather restraints, etc.). 88-Not Attempted due to Medical Conditions or Safety Concerns. Weight Bearing Right Lower Extremity: Right Weight Bearing/Tolerated Left Lower Extremity: Left Weight Bearing/Tolerated Assessment Current Status: No Treatment/Other Tests PT Short Term Goals Short Term Goals Wheelchair Distance: 150' x2 PT Usp Goals Model Maker Plaster Goals PT Usp Goals Time Frame: Sep 08, 2019 Sit to Lying (QC): 5 Lying-Sitting on Side/Bed(QC): 5 Sit to Stand (QC): 5 Roll Left to Right (QC): 5 Chair/Qxz-ga-Bhevq Xfer(QC): 5 Car Transfer (QC): 5 Does the Patient Walk: No and Walking Goal IS indicated Walk 10 feet (QC): 4 Walk 10ft-Uneven Surface(QC): 4 Walk 50ft with 2 Turns (QC): 4 Walk 150 ft (QC): 4 Gait Assistive Device: FWW Wheel 50 feet with 2 turns (QC: 4 1 Step (curb) (QC): 4 4 Steps (QC): 4 12 Steps (QC): 88 Picking up an Object (QC): 88 PT Plan Treatment/Plan Treatment Plan: Discontinue PT Treatment Plan: Bed Mobility, Education, Functional Activity Shiv, Functional Strength, Group Therapy, Gait, Safety, Therapeutic Exercise, Transfers Treatment Duration: Sep 08, 2019 Frequency: At least 5 of 7 days/Wk (IRF) Estimated Hrs Per Day: 1.5 hours per day Patient and/or Family Agrees t: Yes Time/GCodes Time In: 1335 Time Out: 1335 Total Billed Treatment Time: 0 Total Billed Treatment no Rx, no chg WILLIAM JULIAN SUPERVISOR FLESHING Aug 16, 2019 13:36
--- NOTE | 2019-08-16 14:54 | Progress Note ---
[facility] 08/16/19 1454: Progress Note CC: UTI confusion, Stroke, Possible MS * Pt was admitted after a UTI and stroke that occurred * She had been able to walk using a walker and was able to eat with some help needed * She required assistance bathing and was being cared for by her at their home * Upon admission to rehab unit she was able to answer yes and no apporpriately, and appears to understand questions/commands * She would respond in a mumble unintelligible voice to some questions * She had some strength in her legs, but not enough to hold her self up in a walker * Her wire weaver strength was good, but her muscle strength in her arms was difficult to assess due to lack of participation at times * She appeared to be slightly motivated to begin therapy * After each day in rehab she seemed to become less and less responsive with decreased ability to perform muscle strength testing * She also had a worsening of dysphagia and has been eating very little * She has not had any urine output since 10pm last night * Today she would not respond to any questions or perform any muscle strength testing, and would barely keep her head up or eyes open * It would appear she has regressed and lost the will or desire to participate in therapy at this time * Placement into a [facility]ci home for long term acute care registered nurse care and possibly hospice care was discussed with the who appeared to agree with that decision * She likely will be discharged tomorrow or Wednesday pending custodial place ment KARLA JOLLEY DO 08/17/19 0902: Supervisory-Addendum Brief Verification & Attestation Participated in pt care: history, MDM, physical Personally performed: exam, history, MDM, supervision of care Care discussed with: Medical Student Procedures: n/a Results interpretation: Verified all documentation Verification and Attestation of Medical Student E/M Service A medical student performed and documented this service in my presence. I reviewed and verified all information documented by the medical student and made modifications to such information, when appropriate. I personally performed the physical exam and medical decision making. Karla Jolley, Aug 17, 2019,09:02 [facility] Aug 16, 2019 14:54 KARLA JOLLEY DO Aug 17, 2019 09:02
--- NOTE | 2019-08-16 16:00 | NUR ---
Weekly Team Conference Discussed weekly team conference with patient's , Clinton, via telephone. Plan is for discharge to [facility] on , 08/17/19 at 1400. Patient's verbalized understanding and is in agreement with discharge plan.
--- NOTE | 2019-08-16 16:00 | NUR ---
Referral made to [facility] earlier today. Notified that patient has been accepted. Amelia requests discharge from our facility tomorrow, 08/17/19. Amelia will provide transportation to their facility tomorrow at 1400. Telephoned patient's , Clinton, and notified him that patient has been accepted to [facility] and discharge has been requested for tomorrow, 08/17/19, at 1400. Clinton verbalized understanding and is in agreement with discharge plan. Nursing and Dr. Kimball notified. Serjio Encinas, mental health social worker, notified of SNF placement and will complete Care Assessment tomorrow prior to patient's discharge.
--- NOTE | 2019-08-16 17:31 | NUR ---
b/p 179/95, pt up and laughing with good friend, catapress crushed et given with thickened glucerna. no complaints of at this time.
[2019-08-16 18:08] VITALS: BP 179/95
--- NOTE | 2019-08-16 18:45 | NUR ---
Patient had a visit earlier this evening from a good friend. Patient sitting up in bed, engaging in eye contact and audibly laughing with friend. Patient also consumed a Glucerna shake, honey thick, spoon fed by this nurse. Patient tolerated Glucerna well. Took a few small bites of dinner, however, grimaced at taste.
[2019-08-16] MEDS: MIRTAZAPINE 15 MG (REMERON) TAB PO SCH (21:12)
[2019-08-17] MEDS: inSUlin ASPART (NovoLOG) 1 UNIT/0.01 ML (CHARGE PER UNIT) SC SCH ×2 (05:24→11:28)
[2019-08-17] MEDS: KCL 10 MEQ TAB (MICRO K) PO SCH (05:25)
[2019-08-17 05:46] VITALS: BP 153/79
--- NOTE | 2019-08-17 07:16 | Occupational Ther Daily Note ---
OT Current Status-Daily Note Subjective Attempted at 6:50 am to wake up, pt opened eyes then closed them and would not respond. Breakfast tray in room, will attempt again to arose pt and assist pt to eat breakfast. Attempted 2nd time at 0730, pt would not open eyes with name or rubbing shldr/leg. Attempted 3rd time 0750, pt opened eyes but would not make eye contact with BLOUNT or respond. Then with nrsg at 1110 pt awake and would make eye contact though would not verbalize to questions. in room and agrees to therapy. Mental Status/Objective Patient Orientation: Person, Unable to Assess, Non-Verbal/Aphasic ADL-Treatment With assist of nrsg completed sponge bath and dressing. Pt does lift UE's and attempts to shrimp picker clothing for upper body. Max A for upper body bathing and dressing. Dependent for lower body bathing/dressing and footwear. Dependent for toileting hygiene. Dependent for oral care. Pt is able to bear wt with LE's during SPT and shuffle feet for transfer. After therapy, pt lying in bed with call light/phone in reach. All needs met in room. Therapy Code Descriptions/Definitions Functional [place] Measure: 0=Not Assessed/NA 4=Minimal Assistance 1=Total Assistance 5=Supervision or Setup 2=Maximal Assistance 6=Modified [place] 3=Moderate Assistance 7=Complete IndependenceSCALE: Activities may be completed with or without assistive devices. 7-Ulfcmtwrhc-fbxcaap completes the activity by him/herself with no assistance from a helper. 5-Set-up or Clean-up Assistance-helper sets up or cleans up; patient completes activity. [place] assists only prior to or following the activity. 4-Supervision or Touching Assistance-helper provides verbal cues and/or touching/steadying and/or contact guard assistance as patient completes activity. Assistance may be provided throughout the activity or intermittently. 3-Partial/Moderate Assistance-helper does LESS THAN HALF the effort. [place] lifts, holds or supports trunk or limbs, but provides less than half the effort. 2-Substantial/Maximal Assistance-helper does MORE THAN HALF the effort. [place] lifts or holds trunk or limbs and provides more than half the effort. 5-Oxbmxijpy-hsfria does ALL the effort. Patient does none of the effort to complete the activity. Or, the assistance of 2 or more helpers is required for the patient to complete the activity. If activity was not attempted, code reason: 7-Patient Refused. 9-Not Applicable-not attempted and the patient did not perform the activity before the current illness, exacerbation or injury. 10-Not Attempted due to Environmental Limitations-(lack of equipment, weather restraints, etc.). 88-Not Attempted due to Medical Conditions or Safety Concerns. Eating (QC): 1 Oral Hygiene (QC): 1 Shower/Bathe Self (QC): 1 Upper Body Dressing (QC): 2 Lower Body Dressing (QC): 1 Toileting Hygiene (QC): 1 Toilet Transfer (QC): 88 (Pt incontinent) OT Short Term Goals Short Term Goals 1=Demonstrate adherence to instructed precautions during ADL tasks. 2=Patient will verbalize/demonstrate understanding of assistive devices/modifications for ADL. 3=Patient will improve strength/tolerance for activity to enable patient to perform ADL's. OT Restaurant Host Goals Restaurant Host Goals Time Frame: Sep 01, 2019 Eating (QC): 5 (not met) Oral Hygiene (QC): 5 (not met) Shower/Bathe Self (QC): 3 (not met) Upper Body Dressing (QC): 4 (not met) Lower Body Dressing (QC): 3 (not met) On/Off Footwear (QC): 3 (not met) Toileting Hygiene (QC): 4 (CGA, not met) Toilet/Commode Transfer (QC): 4 (CGA, not met) Additional Goals: 1-Demonstrate ADL Tasks, 2-Verbalize Understanding, 3- ImproveStrength/Shiv 1=Demonstrate adherence to instructed precautions during ADL tasks. 2=Patient will verbalize/demonstrate understanding of assistive devices/modifications for ADL. 3=Patient will improve strength/tolerance for activity to enable patient to perform ADL's. OT Education/Plan Problem List/Assessment Assessment: Decreased Activ Tolerance, Decreased Safety Aware, Decreased UE Strength, Dependent Transfers, Impaired Bed Mobility, Impaired Coordination, Impaired Funct Balance, Impaired I ADL's, Impaired Self-Care Skills Pt to benefit from skilled OT intervention for ADL training, transfers, strengthening, and safety education to maximize level of function and decrease caregiver burden. Discharge Recommendations Plan/Recommendations: Continue POC Treatment Plan/Plan of Care Patient would benefit from OT for education, treatment and training to promote independence in ADL's, mobility, safety and/or upper extremity function for ADL's. Plan of Care: ADL Retraining, Functional Mobility, Group Exercise/Act as Ind, UE Funct Exercise/Act, UE Neuromus Re-Ed/Coord Treatment Duration: Sep 01, 2019 Frequency: At least 5 of 7 days/Wk (IRF) Estimated Hrs Per Day: 1.5 hours per day Rehab Potential: Fair Time/GCodes Start Time: 11:10 Stop Time: 11:30 Total Time Billed (hr/min): 20 Billed Treatment Time 1 visit-ADL 1 (20 min) JORGE TERRY Aug 17, 2019 07:16
--- NOTE | 2019-08-17 08:05 | Therapy Team Discharge Summary ---
Therapy Discharge Summary Discharge Recommendations Date of Discharge Occupational Therapy Decreased Activ Tolerance, Decreased Safety Aware, Decreased UE Strength, Impaired Bed Mobility, Impaired Coordination, Impaired Funct Balance, Impaired Self-Care Skills, Restricted Funct UE ROM Speech-Language Pathology Patient was admitted to the ARU s/p CVA. She was given the SLUMS with a moderate level of deficit noted. She has regressed and is not able to participate with the multimedia instructional designer in rehab as required. She is being discharged to SNF today. She is being discharged from [facility] as well. PT [facility] Goals [facility] Goals PT [facility] Goals Time Frame: Sep 08, 2019 Roll Left to Right (QC): 5 Sit to Lying (QC): 5 Lying-Sitting on Side/Bed(QC): 5 Sit to Stand (QC): 5 Chair/Lcq-ja-Ylscz Xfer(QC): 5 Car Transfer (QC): 5 Does the Patient Walk: No and Walking Goal IS indicated Walk 10 feet (QC): 4 Walk 10ft-Uneven Surface(QC): 4 Walk 50ft with 2 Turns (QC): 4 Walk 150 ft (QC): 4 Gait Assistive Device: FWW Wheel 50 feet with 2 turns (QC: 4 1 Step (curb) (QC): 4 4 Steps (QC): 4 12 Steps (QC): 88 Picking up an Object (QC): 88 OT [facility] Goals [facility] Goals Time Frame: Sep 01, 2019 Eating (QC): 5 Oral Hygiene (QC): 5 Shower/Bathe Self (QC): 3 Upper Body Dressing (QC): 4 Lower Body Dressing (QC): 3 On/Off Footwear (QC): 3 Toileting Hygiene (QC): 4 (CGA) Toilet/Commode Transfer (QC): 4 (CGA) Additional Goals: 1-Demonstrate ADL Tasks, 2-Verbalize Understanding, 3- ImproveStrength/Shiv 1=Demonstrate adherence to instructed precautions during ADL tasks. 2=Patient will verbalize/demonstrate understanding of assistive devices/modifications for ADL. 3=Patient will improve strength/tolerance for activity to enable patient to perform ADL's. Speech [facility] Goals Attendant Coin Operated Laundry Goals Patient will improve speech and cognitive level of function in order to meet her communication and independence needs. Not met HAILE MEJIA Aug 17, 2019 08:05
[2019-08-17] MEDS ORDERED: HYDR25TA4 PO (08:11)
[2019-08-17] MEDS ORDERED: AMLO10TA7 PO (08:11)
[2019-08-17] MEDS ORDERED: SENN-20 PO (08:11)
[2019-08-17] MEDS ORDERED: ATOR40TA PO (08:11)
[2019-08-17] MEDS ORDERED: OXC5T PO (08:11)
[2019-08-17] MEDS ORDERED: INSU100V5 SQ (08:11)
[2019-08-17] MEDS ORDERED: INSU100V16 SQ (08:11)
[2019-08-17] MEDS ORDERED: CLOP75TA28 PO (08:11)
[2019-08-17] MEDS ORDERED: LOSA100T57 PO (08:11)
--- NOTE | 2019-08-17 08:13 | Discharge Inst-Skilled Nursing ---
Discharge Inst-Skilled NF Reconcile Patient Problems Problems Reviewed?: Yes Chief Complaint Chief complaint: CVA HPI: This is a 68yoWF known to me from 10 months ago in inpatient rehab for one month following a stroke-like condition that caused progression of multiple scrlerosus who resides at home with her who is very involved in her care, who presents to the inpatient rehab in need of rehabilitation following a stroke and subsequent weakness. Imaging scan confirmed stroke. At this current time she is on a modified diet and bowels are moving a little bit too loosely but she is motivated and ready to be admitted to inpatient rehab to begin a recovery to ultimately return home to lessen the burden on her . CC/HPI per YAIR Duarte CC: UTI w/ confusion, Stroke, Multiple Sclerosis HPI: Pt was not able to communicate very well most of the interview. She did respond yes and no to several questions she was not able to state her name or birthday. Her was the primary historian. He stated that she had been in the hospital and rehab unit previously from which she was able to return home using a walker. She was brought in to the hospital this visit for a UTI that was causing confusion along with hypertension. During her time in the hospital she had an MRI completed that showed evidence of multiple sclerosis with lesions. The MRI also showed she had a stroke. She is unable to communicate what her current struggles are regarding her neurological deficiencies. She is currently unable/unmotivated to sit up in bed unassisted. She reports being able to walk with a walker before entering the hospital and would like to be able to return to that level of function. Her states that she previously had similar symptoms that appeared to be related to her metformin causing lactic acid and her symptoms reportedly became better. The seemed to not fully understand the diagnosis of MS stating that metformin lactic acidosis can mimic MS. The patient was able to understand most of the questions, but not able to respond to questions do to inability to find words. Neuro Exam: EOMI She did not perform the CN7 exam due to inability to understand instructions with demonstration provided or possibly lack of motivation She did not rotate her head and when asked why she responded yes to the question of pain Sensation grossly intact in upper and lower extremities bilaterally She was unable to verbalize the discrimination between dull and sharp sensation, but did appear to be able to tell the difference Muscle strength was difficult to assess Hand rehabilitation construction specialist was 5/5 on right, but 4/5 on left Bilateral forearm flexion and extension 3/5. Difficult to assess further because she did not attempt to provide resistance Bilateral abduction of shoulder 2/5 Plantar flexion and dorsiflexion of bilateral feet 5/5 Bilateral hip flexion and extension 4/5 Patient Instructions Patient Problems: CVA MS Severe debility Dysphagia Aspiration risk Poor prognosis Goal: Clinical stability Consult/Follow Up/Orders Follow Up Appt.: Dr Goldsmith in 1 week Skilled NF Admit to: [facility] Certification (SNF) I certify that SNF services are required to be given on an inpatient basis because of the above named patient's need for residential care on a continuing basis for the conditions(s) for which he/she was receiving inpatient hospital services prior to his/her transfer to the SNF. Long-Term Facility Order: Nursing Services, Furnace Charger-Evaluate & Treat, Physical Therapy-Evaluate & Treat, Speech Language-Evaluate & Treat Oxygen Delivery Method: Room Air Discharge Diet: Other Diet (dysphagia diet aspiration risk) Daily Activity as Tolerated: Yes Resuscitation Status: Full Code New & Resume Previous Orders New Medications: Insulin Aspart (Novolog) 100 Unit/1 Ml Susp 5 UNIT SQ AC for 30 Days, EACH Amlodipine Besylate (Amlodipine Besylate) 10 Mg Tablet 10 MG PO DAILY for 30 Days, TAB Atorvastatin Calcium (Lipitor) 40 Mg Tablet 40 MG PO HS for 30 Days, TAB Clopidogrel Bisulfate (Clopidogrel) 75 Mg Tablet 75 MG PO DAILY for 30 Days, TAB Hydrochlorothiazide (Hydrochlorothiazide) 25 Mg Tablet 25 MG PO DAILY for 30 Days, TAB Insulin Determir (Levemir) 1,000 Units/10 Ml Soln 15 UNIT SQ HS for 30 Days, EA Losartan Potassium (Losartan Potassium) 100 Mg Tablet 100 MG PO DAILY for 30 Days, TAB Oxycodone Hcl (Oxyir Tablet) 5 Mg Tab 2.5 MG PO Q4H PRN for PAIN-SEVERE, #20 TAB Sennosides/Docusate Sodium (Senna-Time S Tablet) 1 Each Tablet 1 EA PO BID for 30 Days, TAB Continued Medications: Aspirin (Aspirin EC) 81 Mg Tablet.dr 81 MG PO 1200, TAB Cetirizine HCl (Zyrtec) 10 Mg Tablet 10 MG PO DAILY, TAB Clonidine HCl (Clonidine HCl) 0.2 Mg Tablet 0.2 MG PO TID, TAB Fluticasone Propionate (Fluticasone Propionate) 16 Gm [place].susp 2 SPRAYS NS DAILY PRN for ALLERGIES/CONGESTION, EA Lactobacillus Combination No.4 (Probiotic) 1 Each Capsule 1 CAP PO DAILY, CAP Metoprolol Succinate (Metoprolol Succinate) 100 Mg Tab.er.24h 100 MG PO 1200, TAB Mirtazapine (Mirtazapine) 7.5 Mg Tablet 7.5 MG PO HS, TAB Potassium Chloride (Potassium Chloride) 10 Meq Tablet.er 10 MEQ PO DAILY, TAB Discontinued Medications: Ascorbate Calcium (Vitamin C) 500 Mg Tablet 500 MG PO 1200, TAB Cholecalciferol (Vitamin D3) (Vitamin D3) 2,000 Unit Tab.chew 1000 UNIT PO DAILY, TAB [Elemental Magnesium] () 1 TAB PO BID Glipizide (Glipizide ER) 5 Mg Tab.er.24 5 MG PO BID, TAB Insulin Detemir (Levemir Flextouch) 100 Unit/1 Ml Insuln.pen 14-15 UNITS SC HS, EA Insuln Asp Prt/Insulin Aspart (Novolog Mix 70-30 Flexpen Syrn) 300 Units/3 Ml Solution 8-11 UNITS SC 1200,1700, EA Levomefolate/B6/B12/Algal Oil (Metanx Capsule) 1 Each Capsule 1 CAP PO BID, CAP Losartan Potassium (Losartan Potassium) 50 Mg Tablet 50 MG PO DAILY, TAB Multivitamin with Minerals (Multivitamins with Minerals) 1 Each Tablet 1 TAB PO 1200, TAB Oxybutynin Chloride (Oxybutynin Chloride ER) 10 Mg Tab.er.24 10 MG PO DAILY, TAB Karla Kimball Aug 17, 2019 08:11 KARLA KIMBALL DO Aug 17, 2019 08:13
--- NOTE | 2019-08-17 08:13 | Cardiology Progress Note ---
Subjective Date Seen by Provider: Aug 17, 2019 Time Seen by Provider: 08:12 Subjective/Events-last exam Patient is sitting up in chair, no apparent distress. Unable to answer any questions asked. Objective-Cardiology Exam Last Set of Vital Signs Vital Signs 08/15/19 08/17/19 08/17/19 17:42 05:46 09:00 Temp 36.8 Pulse 70 Resp 16 B/P (MAP) 153/79 (103) Pulse Ox 100 O2 Delivery Room Air O2 Flow Rate 0.00 0.00 Capillary Refill : I&O Intake and Output 08/16/19 23:59 Intake Total 400 ml Balance 400 ml Intake Oral 400 ml # Voids 1 # Urine Diapers 3 General: Alert, Cooperative, No Acute Distress Lungs: Clear to Auscultation, Normal Air Movement Heart: Regular Rate, No Murmurs Abdomen: Soft, No Tenderness Extremities: No Edema, No Tenderness/Swelling Neuro: Other (Unable to speak other than yes and no, mumble incoherent speech otherwise) Psych/Mental Status: Other (Unclear whether she fully understands some questions, flat affect) A/P-Cardiology Admission Diagnosis AMS Hx CVA HTN UTI Assessment/Plan Acute change in mental status, recurrent CVA with thalamic infarction, had extensive neurologic history with history of CVA and TIA in the past with residual left-sided weakness, last year had workup for multiple sclerosis and has reported that the workup was negative, had multiple hospitalization with change in mental status due to electrolyte imbalance. Her MRI on this admission is showing a new thalamic infarction. Managed by primary care physician, started on aspirin and Plavix Labile hypertension with hypertensive emergency, better blood pressure control at this time, continue to monitor Workup for secondary hypertension was initiated, results are pending Hypokalemia, hypomagnesemia, replaced, improved, continue to monitor. UTI, receiving antibiotic, managed by primary care team History of CVA and TIA, baseline some degree of confusion Diabetes mellitus, followed and managed by primary care physician Patient was seen and evaluated with Gail, examination performed, management plan was discussed, agree with the current scribed note, I made few changes to the note using Italic font. Patient is sitting in a chair, unable to communicate verbally, being transferred to long term Blood pressure is better controlled at this time. Continue on current medication and monitor. No changes are recommended Clinical Quality Measures DVT/VTE Risk/Contraindication: Risk Factor Score Per Nursin RFS Level Per Nursing on Admit: 4+=Very High GAIL WHITE Aug 17, 2019 08:13 ROSIE RAMOS MD Aug 17, 2019 13:10
--- NOTE | 2019-08-17 08:13 | Discharge Summary ---
Diagnosis/Chief Complaint Date of Admission Aug 11, 2019 at 10:30 Date of Discharge Discharge Date: Aug 17, 2019 Discharge Diagnosis Assessment: CVA MS severe Chronic debility UTI Loose stools holding laxatives Acute dysphagia episode appears to be an aspiration risk Plan: CVA care BP meds IRF protocol Prognosis overall poor Needs / care Patient will need snf placement and CODE STATUS addressed and try to participate in skilled care and if she fails that she will need hospice for end-of-life care (1) CVA (cerebral vascular accident) (2) Infarction of thalamus Status: Acute (3) Left parietal lobe lesion Status: Acute (4) Hypertensive emergency Status: Resolved Resolution Date/Time: 08/09/19 @ 11:07 (5) Acute kidney injury Status: Acute (6) History of stroke Status: Chronic (7) HTN (hypertension) Status: Acute (8) Multiple sclerosis Status: Chronic (9) UTI (urinary tract infection) Status: Acute (10) Hyperlipidemia Status: Chronic (11) Generalized weakness Status: Acute (12) Insulin dependent diabetes mellitus Status: Chronic (13) Hypomagnesemia Status: Acute (14) Hypokalemia Status: Acute (15) Confusion (16) At risk for aspiration (17) Poor prognosis (18) Need for continuous supervision Discharge Summary Discharge Physical Examination Allergies: Coded Allergies: canagliflozin (Verified Allergy, Severe, ANAPHYLAXIS, 08/03/19) iodine (Unverified Adverse Reaction, Severe, migraine headache, 08/03/19) lorazepam (Verified Adverse Reaction, Severe, ELEVATED BLOOD PRESSURE, 08/03/19) zolpidem (Verified Adverse Reaction, Severe, SLEEP WALK, 08/03/19) codeine (Unverified Adverse Reaction, Mild, INCREASED ACTIVITY, 08/03/19) erythromycin base (Unverified Adverse Reaction, Mild, NAUSEA, 08/03/19) Heparin Analogues (Unverified Adverse Reaction, Unknown, 08/03/19) Vitals & I&Os Vital Signs Date Time Temp Pulse Resp B/P (MAP) Pulse Ox O2 Delivery O2 Flow Rate FiO2 08/17/19 16:17 36.8 70 18 147/72 97 Room Air 08/15/19 17:42 0.00 0.00 General Appearance: Alert, Other (frail, declined, pale, withdrawn) Respiratory: Clear to Auscultation Cardiovascular: Regular Rate Hospital Course Was the Problem List Reviewed?: Yes Hospital course: Pt had a standard hospital course for seven days after she suffered a stroke with UTI and ultimately was admitted to inpatient rehab to facilitate recovery but she was found to be able to answer yes and no questions fairly well and participate somewhat with speech therapy working on dysphasia but even thought labs remain stable and vitals remain stable she was found to have a progressive decline throughout her hospital course, ultimately bringing about an end of life conversation with the and he seemed very reasonable and considering her increased dysphasia and just overall poor motivation and extensive decline that was not due to an acute issue, it was based on her chronic debility finally getting to the point that she is not going to be able to recovery but I did update Dr. Goldsmith's office, we did decide on going to [facility] for skilled care and to see if a slower therapy regimen would be helpful for her but I feel like the way she is looking, although she is stable, she will have a rapid decline and need hospice and end of life care. Labs (last 24 hrs) Laboratory Tests 08/11/19 21:44: Glucometer 269H 08/12/19 05:47: Glucometer 84 08/12/19 11:47: Glucometer 321H 08/12/19 16:20: Glucometer 240H 08/13/19 05:03: Glucometer 157H 08/13/19 11:50: Glucometer 269H 08/13/19 16:40: Glucometer 175H 08/13/19 20:54: Glucometer 298H 08/14/19 04:57: White Blood Count 6.4, Red Blood Count 4.05L, Hemoglobin 11.7, Hematocrit 35, Mean Corpuscular Volume 86, Mean Corpuscular Hemoglobin 29, Mean Corpuscular Hemoglobin Concent 34, Red Cell Distribution Width 14.6H, Platelet Count 222, Mean Platelet Volume 12.0H, Neutrophils (%) (Auto) 53, Lymphocytes (%) (Auto) 34, Monocytes (%) (Auto) 10, Eosinophils (%) (Auto) 3, Basophils (%) (Auto) 1, Neutrophils # (Auto) 3.4, Lymphocytes # (Auto) 2.2, Monocytes # (Auto) 0.6, Eosinophils # (Auto) 0.2, Basophils # (Auto) 0.0, Sodium Level 140, Potassium Level 3.1L, Chloride Level 102, Carbon Dioxide Level 26, Anion Gap 12, Blood Urea Nitrogen 30H, Creatinine 1.08, Estimat Glomerular Filtration Rate 50, BUN/Creatinine Ratio 28, Glucose Level 101, Calcium Level 9.1, Corrected Calcium 9.6, Total Bilirubin 0.2, Aspartate Amino Transf (AST/SGOT) 16, Alanine Aminotransferase (ALT/SGPT) 26, Alkaline Phosphatase 92, Total Protein 5.8L, Albumin 3.4 08/14/19 05:00: Glucometer 99 08/14/19 11:13: Glucometer 240H 08/14/19 16:25: Glucometer 165H 08/14/19 20:20: Glucometer 277H 08/15/19 05:18: Glucometer 102 08/15/19 15:46: Glucometer 152H 08/15/19 21:20: Glucometer 158H 08/16/19 04:47: Glucometer 149H 08/16/19 09:25: 08/16/19 10:52: Glucometer 103 08/16/19 16:31: Glucometer 112H 08/16/19 20:22: Glucometer 179H 08/17/19 05:14: Glucometer 204H 08/17/19 11:08: Glucometer 234H Pending Labs Laboratory Tests 08/11/19 21:44: Glucometer 269 08/12/19 05:47: Glucometer 84 08/12/19 11:47: Glucometer 321 08/12/19 16:20: Glucometer 240 08/13/19 05:03: Glucometer 157 08/13/19 11:50: Glucometer 269 08/13/19 16:40: Glucometer 175 08/13/19 20:54: Glucometer 298 08/14/19 04:57: White Blood Count 6.4, Red Blood Count 4.05, Hemoglobin 11.7, Hematocrit 35, Mean Corpuscular Volume 86, Mean Corpuscular Hemoglobin 29, Mean Corpuscular Hemoglobin Concent 34, Red Cell Distribution Width 14.6, Platelet Count 222, Mean Platelet Volume 12.0, Neutrophils (%) (Auto) 53, Lymphocytes (%) (Auto) 34, Monocytes (%) (Auto) 10, Eosinophils (%) (Auto) 3, Basophils (%) (Auto) 1, Neutrophils # (Auto) 3.4, Lymphocytes # (Auto) 2.2, Monocytes # (Auto) 0.6, Eosinophils # (Auto) 0.2, Basophils # (Auto) 0.0, Sodium Level 140, Potassium Level 3.1, Chloride Level 102, Carbon Dioxide Level 26, Anion Gap 12, Blood Urea Nitrogen 30, Creatinine 1.08, Estimat Glomerular Filtration Rate 50, BUN/Creatinine Ratio 28, Glucose Level 101, Calcium Level 9.1, Corrected Calcium 9.6, Total Bilirubin 0.2, Aspartate Amino Transf (AST/SGOT) 16, Alanine Aminotransferase (ALT/SGPT) 26, Alkaline Phosphatase 92, Total Protein 5.8, Albumin 3.4 08/14/19 05:00: Glucometer 99 08/14/19 11:13: Glucometer 240 08/14/19 16:25: Glucometer 165 08/14/19 20:20: Glucometer 277 08/15/19 05:18: Glucometer 102 08/15/19 15:46: Glucometer 152 08/15/19 21:20: Glucometer 158 08/16/19 04:47: Glucometer 149 08/16/19 09:25: Miscellaneous Test Result [Pending], Renin Activity [Pending], Aldosterone [Pending], Aldosterone/Renin Ratio [Pending] 08/16/19 10:52: Glucometer 103 08/16/19 16:31: Glucometer 112 08/16/19 20:22: Glucometer 179 08/17/19 05:14: Glucometer 204 08/17/19 11:08: Glucometer 234 Discharge Home Medications: Active Scripts Active Novolog (Insulin Aspart) 100 Unit/1 Ml Susp 5 Unit SQ AC 30 Days Levemir (Insulin Determir) 1,000 Units/10 Ml Soln 15 Unit SQ HS 30 Days Senna-Time S Tablet (Sennosides/Docusate Sodium) 1 Each Tablet 1 Ea PO BID 30 Days Hydrochlorothiazide 25 Mg Tablet 25 Mg PO DAILY 30 Days Oxyir Tablet (Oxycodone HCl) 5 Mg Tab 2.5 Mg PO Q4H PRN Losartan Potassium 100 Mg Tablet 100 Mg PO DAILY 30 Days Lipitor (Atorvastatin Calcium) 40 Mg Tablet 40 Mg PO HS 30 Days Clopidogrel (Clopidogrel Bisulfate) 75 Mg Tablet 75 Mg PO DAILY 30 Days Amlodipine Besylate 10 Mg Tablet 10 Mg PO DAILY 30 Days Reported Metoprolol Succinate 100 Mg Tab.er.24h 100 Mg PO 1200 Zyrtec (Cetirizine HCl) 10 Mg Tablet 10 Mg PO DAILY Clonidine HCl 0.2 Mg Tablet 0.2 Mg PO TID Mirtazapine 7.5 Mg Tablet 7.5 Mg PO HS Probiotic (Lactobacillus Combination No.4) 1 Each Capsule 1 Cap PO DAILY Aspirin EC (Aspirin) 81 Mg Tablet.dr 81 Mg PO 1200 Fluticasone Propionate 16 Gm [place].susp 2 Sprays NS DAILY PRN Potassium Chloride 10 Meq Tablet.er 10 Meq PO DAILY Instructions to patient/family Please see electronic discharge instructions given to patient. Diagnosis/Problems Diagnosis/Problems (1) CVA (cerebral vascular accident) (2) Infarction of thalamus Status: Acute (3) Left parietal lobe lesion Status: Acute (4) Hypertensive emergency Status: Resolved Resolution Date/Time: 08/09/19 @ 11:07 (5) Acute kidney injury Status: Acute (6) History of stroke Status: Chronic (7) HTN (hypertension) Status: Acute (8) Multiple sclerosis Status: Chronic (9) UTI (urinary tract infection) Status: Acute (10) Hyperlipidemia Status: Chronic (11) Generalized weakness Status: Acute (12) Insulin dependent diabetes mellitus Status: Chronic (13) Hypomagnesemia Status: Acute (14) Hypokalemia Status: Acute (15) Confusion (16) At risk for aspiration (17) Poor prognosis (18) Need for continuous supervision Clinical Quality Measures DVT/VTE Risk/Contraindication: Risk Factor Score Per Nursin RFS Level Per Nursing on Admit: 4+=Very High FAIZA JOLLEY DO Aug 17, 2019 08:13
[2019-08-17] MEDS: meTOprolol TARTRATE 50 MG (LOPRESSOR) TAB PO SCH (08:32)
[2019-08-17] MEDS: CLOPIDOGREL 75 MG (PLAVIX) TABLET PO SCH (08:33)
[2019-08-17] MEDS: LOSARTAN 100 MG (COZAAR) TABLET PO SCH (08:34)
[2019-08-17] MEDS: cloNIDine 0.2 MG (CATAPRES) TAB PO SCH ×2 (08:35→12:36)
[2019-08-17] MEDS: HYDROCHLOROTHIAZIDE 25 MG (HCTZ) TAB PO SCH (08:35)
[2019-08-17] MEDS: amLODIPine 10 MG (NORVASC) TAB PO SCH (08:35)
[2019-08-17] MEDS: ASPIRIN E.C. 81 MG (ECOTRIN) TAB PO SCH (08:36)
[2019-08-17] MEDS: ceTIRizine 10 MG (ZyrTEC) TAB NON-FORMULARY PO SCH (08:39)
[2019-08-17] MEDS: SENNA W/DOCUSATE (SENOKOT S) TABLET PO SCH (08:40)
[2019-08-17] MEDS: DOCUSATE SODIUM 100 MG (COLACE) CAP PO SCH (08:40)
--- NOTE | 2019-08-17 09:00 | NUR ---
HAS BEEN SLEEPING, BUT NOW AWAKENED BY NURSE AND LOOKING AT HER AND APPEARS TO BE TRYING TO VERBALIZE A LITTLE. ASSISTED UP TO CHAIR BY 2 PEOPLE. FED BREAKFAST AND ATE FAIRLY WELL. PICKED UP SPOON SEVERAL TIMES ON OWN TRYING TO FEED SELF. STILL OCCASIONAL COUGHING WHEN EATING. ON DYS. 1 DIET WITH HONEY-THICKENED LIQUIDS. APPEARS COMFORTABLE.
--- NOTE | 2019-08-17 09:29 | Physical Therapy Daily Note ---
PT Daily Note-Current Subjective Patient in recliner pre tx, agrees to PT with the nod of the head, she cannot seem to communicate verbally today. It is unknown if she has any pain, she doesn't seem to wince or moan with pain during PT. Appearance Patient in recliner post tx with nurse call, phone, tray, legs elevated. Phlebo tomist in room when done. Mental Status Patient Orientation: Unable to Assess, Non-Verbal/Aphasic Transfers SCALE: Activities may be completed with or without assistive devices. 5-Qmdawokkln-whlkarr completes the activity by him/herself with no assistance from a helper. 5-Set-up or Clean-up Assistance-helper sets up or cleans up; patient completes activity. Eads assists only prior to or following the activity. 4-Supervision or Touching Assistance-helper provides verbal cues and/or touching/steadying and/or contact guard assistance as patient completes activi ty. Assistance may be provided throughout the activity or intermittently. 3-Partial/Moderate Assistance-helper does LESS THAN HALF the effort. Eads lifts, holds or supports trunk or limbs, but provides less than half the effort. 2-Substantial/Maximal Assistance-helper does MORE THAN HALF the effort. Eads lifts or holds trunk or limbs and provides more than half the effort. 1-Sirblxfyt-wekmyb does ALL the effort. Patient does none of the effort to complete the activity. Or, the assistance of 2 or more helpers is required for the patient to complete the activity. If activity was not attempted, code reason: 7-Patient Refused. 9-Not Applicable-not attempted and the patient did not perform the activity before the current illness, exacerbation or injury. 10-Not Attempted due to Environmental Limitations-(lack of equipment, weather restraints, etc.). 88-Not Attempted due to Medical Conditions or Safety Concerns. Transfers (B, C, W/C): 1 Roll Left to Right (QC): 1 Sit to Lying (QC): 1 Sit to Stand (QC): 1 Chair/Jid-uh-Ftitv Xfer(QC): 1 Car Transfer (QC): 1 Patient performs bed mobility with dependence, supine <-> sit dependent, sit <-> stand dependent, transfers dependent, car transfer dependent. Patient is able to assist slightly with supine <-> sit and during transfers but not enough to be considered max assist. Patient needs cues for hand placement and positioning and often needs tactile cues. Weight Bearing Right Lower Extremity: Right Weight Bearing/Tolerated Left Lower Extremity: Left Weight Bearing/Tolerated Gait Training Walk 10 feet (QC): 88 Walk 50 ft with 2 Turns(QC): 88 Walk 150 ft (QC): 88 Walking 10ft/uneven surface-QC: 88 Wheelchair Training Does the Pt Use a Wheelchair?: Yes Distance: 150' Wheel 50 ft with 2 turns (QC): 1 Wheel 150 ft (QC): 1 Type of Wheelchair: Manual Patient is dependent for wheelchair mobility. Stair Training 1 Step (curb) (QC): 88 4 Steps (QC): 88 12 Steps (QC): 88 Patient is not ambulatory at this time and cannot perform stairs. Balance Picking up an Object (QC): 88 Treatments bed mobility and transfers, WC mobility Assessment Current Status: Poor Progress Poor mobility, patient is non-verbal today, lethargic. PT Short Term Goals Short Term Goals Wheelchair Distance: 150' x2 PT Intermediate Goals Toolroom Clerk Goals PT Intermediate Goals Time Frame: Sep 08, 2019 Sit to Lying (QC): 5 Lying-Sitting on Side/Bed(QC): 5 Sit to Stand (QC): 5 Roll Left to Right (QC): 5 Chair/Enw-fl-Nbuwn Xfer(QC): 5 Car Transfer (QC): 5 Does the Patient Walk: No and Walking Goal IS indicated Walk 10 feet (QC): 4 Walk 10ft-Uneven Surface(QC): 4 Walk 50ft with 2 Turns (QC): 4 Walk 150 ft (QC): 4 Gait Assistive Device: FWW Wheel 50 feet with 2 turns (QC: 4 1 Step (curb) (QC): 4 4 Steps (QC): 4 12 Steps (QC): 88 Picking up an Object (QC): 88 PT Plan Problem List Problem List: Activity Tolerance, Functional Strength, Safety, Balance, Gait, Transfer, Bed Mobility, ROM Treatment/Plan Treatment Plan: Continue Plan of Care, Discontinue PT Treatment Plan: Bed Mobility, Concurrent Therapy, Education, Functional Activity Shiv, Functional Strength, Group Therapy, Gait, Safety, Therapeutic Exercise, Transfers Treatment Duration: Sep 08, 2019 Frequency: At least 5 of 7 days/Wk (IRF) Estimated Hrs Per Day: 1.5 hours per day Patient and/or Family Agrees t: Yes Safety Risks/Education Patient Education: Transfer Techniques, Correct Positioning, W/C Management, Safety Issues Teaching Recipient: Patient Teaching Methods: Demonstration, Discussion Response to Teaching: Reinforcement Needed Time/GCodes Time In: 899 Time Out: 919 Total Billed Treatment Time: 20 Total Billed Treatment 1 visit FA 20' PEBBLES BERRY PT Aug 17, 2019 09:29
--- NOTE | 2019-08-17 09:34 | Therapy Team Discharge Summary ---
Therapy Discharge Summary Discharge Recommendations Date of Discharge Physical Therapy Patient came to rehab with acute encephalopathy. Upon evaluation patient was dependent for bed mobility and transfers and car transfers and WC mobility. Patient has been performing bed mobility and transfer training, functional strengthening, balance training, and education. Patient has made poor progress and has not met any of her penitentiary goals. Now, patient is still dependent for bed mobility and transfers and WC mobility and car transfer. Patient is discharging from this facility today and will be discharged from PT at this time. Occupational Therapy Decreased Activ Tolerance, Decreased Safety Aware, Decreased UE Strength, Impaired Bed Mobility, Impaired Coordination, Impaired Funct Balance, Impaired Self-Care Skills, Restricted Funct UE ROM PT Sheet Pile Hammer Operator Goals Nursing Home Goals PT Nursing Home Goals Time Frame: Sep 08, 2019 Roll Left to Right (QC): 5 Sit to Lying (QC): 5 Lying-Sitting on Side/Bed(QC): 5 Sit to Stand (QC): 5 Chair/Qea-rf-Pszyr Xfer(QC): 5 Car Transfer (QC): 5 Does the Patient Walk: No and Walking Goal IS indicated Walk 10 feet (QC): 4 Walk 10ft-Uneven Surface(QC): 4 Walk 50ft with 2 Turns (QC): 4 Walk 150 ft (QC): 4 Gait Assistive Device: FWW Wheel 50 feet with 2 turns (QC: 4 1 Step (curb) (QC): 4 4 Steps (QC): 4 12 Steps (QC): 88 Picking up an Object (QC): 88 OT Sheet Pile Hammer Operator Goals Nursing Home Goals Time Frame: Sep 01, 2019 Eating (QC): 5 Oral Hygiene (QC): 5 Shower/Bathe Self (QC): 3 Upper Body Dressing (QC): 4 Lower Body Dressing (QC): 3 On/Off Footwear (QC): 3 Toileting Hygiene (QC): 4 (CGA) Toilet/Commode Transfer (QC): 4 (CGA) Additional Goals: 1-Demonstrate ADL Tasks, 2-Verbalize Understanding, 3- ImproveStrength/Shiv 1=Demonstrate adherence to instructed precautions during ADL tasks. 2=Patient will verbalize/demonstrate understanding of assistive devices/modifications for ADL. 3=Patient will improve strength/tolerance for activity to enable patient to perform ADL's. Speech Sheet Pile Hammer Operator Goals Nursing Home Goals Patient will improve speech and cognitive level of function in order to meet her communication and independence needs. Not met PEBBLES BERRY PT Aug 17, 2019 09:34
--- NOTE | 2019-08-17 10:41 | NUR ---
Patient unable to sign IMM. Patient's at bedside. IMM reviewed with patient's who verbalized understanding and signed the document. Patient's states he is "grateful" that his was provided the opportunity for intensive therapies on the rehab unit.
--- NOTE | 2019-08-17 11:06 | Progress Note ---
[facility] 08[facility]17[facility]19 1106: Progress Note CC: Stroke. Possible MS * She was awake and more alert today * She had her head up and was looking around, but she did start to put her head down becoming less attentive shortly after the encounter began * Her reports she was able to eat a little last night and this morning as well as take her pills without difficulty this morning * She was able to follow some commands such as testing hand support specialist strength which was 5/5 on the right and 4/5 on the left * Her said that last night she had a friend come visit and the patient was responding and even laughed at some jokes * Her was grateful for the opportunity to try the rehab unit, but understands that she may need a slower pace at this time * She is going to be discharged to a shelter in [place] at 2pm today KARLA JOLLEY DO 08/17/19 2118: Supervisory-Addendum Brief Verification & Attestation Participated in pt care: history, MDM, physical Personally performed: exam, history, MDM, supervision of care Care discussed with: Medical Student Procedures: n/a Results interpretation: Verified all documentation Verification and Attestation of Medical Student E/M Service A medical student performed and documented this service in my presence. I reviewed and verified all information documented by the medical student and made modifications to such information, when appropriate. I personally performed the physical exam and medical decision making. Karla Jolley, Aug 17, 2019,21:18 [facility] Aug 17, 2019 11:06 KARLA JOLLEY DO Aug 17, 2019 21:18
--- NOTE | 2019-08-17 13:49 | NUR ---
CARE assessment completed and copy faxed to [facility] and to [facility].
[2019-08-17 16:17] VITALS: BP 147/72
--- NOTE | 2019-08-18 13:14 | Therapy Team Discharge Summary ---
Therapy Discharge Summary Discharge Recommendations Date of Discharge Aug 17, 2019 at 15:20 Occupational Therapy Pt admitted to ARU with acute encephalopathy. On admission pt required max as sist with bathing and UE dressing and total assist for LE dressing. Pt did not make progress with therapy and did not meet any LTG. At discharge pt is requiring max assist with UE dressing and is dependent with other basic self care and transfers. Pt discharged to SNF for continued care. D/c ARU OT. Decreased Activ Tolerance, Decreased Safety Aware, Decreased UE Strength, Dependent Transfers, Impaired Bed Mobility, Impaired Coordination, Impaired Funct Balance, Impaired I ADL's, Impaired Self-Care Skills PT Marriage And Family Teacher Goals Jail Goals PT Marriage And Family Teacher Goals Time Frame: Sep 08, 2019 Roll Left to Right (QC): 5 Sit to Lying (QC): 5 Lying-Sitting on Side/Bed(QC): 5 Sit to Stand (QC): 5 Chair/Oks-oc-Ojcmc Xfer(QC): 5 Car Transfer (QC): 5 Does the Patient Walk: No and Walking Goal IS indicated Walk 10 feet (QC): 4 Walk 10ft-Uneven Surface(QC): 4 Walk 50ft with 2 Turns (QC): 4 Walk 150 ft (QC): 4 Gait Assistive Device: FWW Wheel 50 feet with 2 turns (QC: 4 1 Step (curb) (QC): 4 4 Steps (QC): 4 12 Steps (QC): 88 Picking up an Object (QC): 88 OT Marriage And Family Teacher Goals Jail Goals Time Frame: Sep 01, 2019 Eating (QC): 5 (not met) Oral Hygiene (QC): 5 (not met) Shower/Bathe Self (QC): 3 (not met) Upper Body Dressing (QC): 4 (not met) Lower Body Dressing (QC): 3 (not met) On/Off Footwear (QC): 3 (not met) Toileting Hygiene (QC): 4 (CGA, not met) Toilet/Commode Transfer (QC): 4 (CGA, not met) Additional Goals: 1-Demonstrate ADL Tasks, 2-Verbalize Understanding, 3- ImproveStrength/Shiv 1=Demonstrate adherence to instructed precautions during ADL tasks. 2=Patient will verbalize/demonstrate understanding of assistive devices/modifica tions for ADL. 3=Patient will improve strength/tolerance for activity to enable patient to perform ADL's. Speech Marriage And Family Teacher Goals Jail Goals Patient will improve speech and cognitive level of function in order to meet her communication and independence needs. Not met TARIQ MCNULTY OT Aug 18, 2019 13:14
--- NOTE | 2019-08-18 15:42 | NUR ---
QC Clarification Discussed QC with interdisciplinary team: PT, OT and nursing. Discharge QC for Putting on/Taking off Footwear is 1.
== END 2019-08-17 15:20 | DRG 56 ==
PROVIDERS: ADMIT Internal Medicine; ATTEND Internal Medicine
DX: I69.891 Dysphagia following other cerebrovascular disease (principal); I69.821 Dysphasia following other cerebrovascular disease; I69.854 Hemiplegia and hemiparesis following other cerebrovascular disease affecting left non-dominant side; I69.392 Facial weakness following cerebral infarction; G93.41 Metabolic encephalopathy; G35 Multiple sclerosis; F03.90 Unspecified dementia, unspecified severity, without behavioral disturbance, psychotic disturbance, mood disturbance, and anxiety; I10 Essential (primary) hypertension; E11.65 Type 2 diabetes mellitus with hyperglycemia; R53.1 Weakness; E78.00 Pure hypercholesterolemia, unspecified; F41.9 Anxiety disorder, unspecified; F32.9 Major depressive disorder, single episode, unspecified; R53.81 Other malaise; K59.09 Other constipation; E87.6 Hypokalemia; Z79.4 Long term (current) use of insulin; Z87.440 Personal history of urinary (tract) infections
CPT/HCPCS: 36415; 80053; 82088; 82962; 85025

== ENCOUNTER 2019-09-23 20:47 | Emergency (ER) | payer MEDICARE ==
[~2019-09-23] VITALS: Ht 170 cm; Wt 63.6 kg
[~2019-09-23 20:47] MED LIST changes: +AMLO10TA7 PO; +INSU100V16 SQ; +INSU100V5 SQ; +OXC5T PO
[2019-09-23] MEDS ORDERED: NS IV 1000 ML 1,000 ML IV ONE ×3 (20:50→23:11)
--- NOTE | 2019-09-23 21:03 | ED General ---
General Chief Complaint: Glucose Problems Stated Complaint: HIGH BLOOD SUGAR Source of Information: EMS, Custodial Records, Old Records Exam Limitations: Language Barrier (PT WITH EXPRESSIVE APHASIA POST CVA. ) History of Present Illness Date Seen by Provider: Sep 23, 2019 Time Seen by Provider: 20:50 Initial Comments PT ARRIVES VIA EMS FROM [facility] PT WITH ELEVATED BLOOD SUGARS ALL DAY AT 1615--GLUCOSE WAS 459 AT 1930--GLUCOSE WAS 530 PT TAKES LEVEMIR 12 UNITS BID, AND WAS GIVEN HER NORMAL DOSE AT 1930 PT IS ON NOVOLOG 70/30 SLIDING SCALE, BUT NO REPORT IF PT WAS GIVEN ANY OF THIS TODAY PER [facility] REPORT, THEY WERE UNABLE TO CONTACT PT'S PCP, DR. SANTOS, SO TRANSFERRED HER HERE EMS REPORT THAT THEIR ACCUCHECK READ "HIGH" WITH CUTOFF BEING > 500 EMS REPORT THAT HAD STATED TO THEM THAT PT WAS ACTING NORMAL FOR HER, POST CVA. PT ALSO HAS HISTORY OF MS PT HAS HISTORY OF UTI'S VITALS PER EMS: BP 122/72, HR 75, O2 SAT 97% ON RA ACCUCHECK 453 ON ARRIVAL HERE PT ABLE TO ANSWER A FEW YES/NO QUESTIONS, AND CAN SAY "OK" APPROPRIATELY PT DENIES PAIN DENIES NAUSEA/VOMITING WHEN ASKED IF SHE FEELS BAD, SHE STATES "YES" NO REPORTED FEVER OR COUGH PT WAS ADMITTED HERE 08/03/19 FOR UTI, WITH CONFUSION AND WORSENING OF MS SYMPTOMS, AND WAS FOUND TO HAVE ACUTE CVA WELL. PT ADMITTED TO INPATIENT REHAB FROM 08/11-08/17 FOR THESE. PT WAS THEN ADMITTED TO [facility], DUE TO WORSENING OF GENERALIZED WEAKNESS, IN ABILITY TO CARE FOR HERSELF, AND NO LONGER ABLE TO CARE FOR HER AT HOME. PCP: DR. SANTOS Allergies and Home Medications Allergies Coded Allergies: canagliflozin (Verified Allergy, Severe, ANAPHYLAXIS, 08/03/19) iodine (Unverified Adverse Reaction, Severe, migraine headache, 08/03/19) lorazepam (Verified Adverse Reaction, Severe, ELEVATED BLOOD PRESSURE, 08/03/19) zolpidem (Verified Adverse Reaction, Severe, SLEEP WALK, 08/03/19) codeine (Unverified Adverse Reaction, Mild, INCREASED ACTIVITY, 08/03/19) erythromycin base (Unverified Adverse Reaction, Mild, NAUSEA, 08/03/19) Heparin Analogues (Unverified Adverse Reaction, Unknown, 08/03/19) Home Medications Amlodipine Besylate 10 Mg Tablet, 10 MG PO DAILY Prescribed by: FAIZA JOLLEY on 08/17/19810 Aspirin 81 Mg Tablet.dr, 81 MG PO 1200, (Reported) Atorvastatin Calcium 40 Mg Tablet, 40 MG PO HS Prescribed by: FAIZA JOLLEY on 08/17/19810 Cetirizine HCl 10 Mg Tablet, 10 MG PO DAILY, (Reported) Clonidine HCl 0.2 Mg Tablet, 0.2 MG PO TID, (Reported) Clopidogrel Bisulfate 75 Mg Tablet, 75 MG PO DAILY Prescribed by: FAIZA JOLLEY on 08/17/19810 Fluticasone Propionate 16 Gm [place].susp, 2 SPRAYS NS DAILY PRN for ALLERGIES/CONGESTION, (Reported) Hydrochlorothiazide 25 Mg Tablet, 25 MG PO DAILY Prescribed by: FAIZA JOLLEY on 08/17/19810 Insulin Aspart 100 Unit/1 Ml Susp, 5 UNIT SQ AC Prescribed by: FAIZA JOLLEY on 08/17/19810 Insulin Determir 1,000 Units/10 Ml Soln, 15 UNIT SQ HS Prescribed by: FAIZA JOLLEY on 08/17/19810 Lactobacillus Combination No.4 1 Each Capsule, 1 CAP PO DAILY, (Reported) Losartan Potassium 100 Mg Tablet, 100 MG PO DAILY Prescribed by: FAIZA JOLLEY on 08/17/19810 Metoprolol Succinate 100 Mg Tab.er.24h, 100 MG PO 1200, (Reported) Mirtazapine 7.5 Mg Tablet, 7.5 MG PO HS, (Reported) Oxycodone Hcl 5 Mg Tab, 2.5 MG PO Q4H PRN for PAIN-SEVERE Prescribed by: FAIZA JOLLEY on 08/17/19810 Potassium Chloride 10 Meq Tablet.er, 10 MEQ PO DAILY, (Reported) Sennosides/Docusate Sodium 1 Each Tablet, 1 EA PO BID Prescribed by: FAIZA JOLLEY on 08/17/19810 Patient Home Medication List Home Medication List Reviewed: Yes Review of Systems Review of Systems Constitutional: No fever Respiratory: No cough Cardiovascular: No chest pain Gastrointestinal: No abdominal pain, No vomiting Psychiatric/Neurological: Pre-Existing Deficit Past [id number]-Odfxyo-Ksuqtm Hx Patient Social History 2nd Hand Smoke Exposure: No Recent Foreign Travel: No Contact w/Someone Who Travel: No Recent Hopitalizations: No (DC'D 08/11/19 FROM MED/SURG) Immunizations Up To Date Tetanus Booster (TDap): More than 5yrs Date of Pneumonia Vaccine: Aug 01, 2012 Date of Influenza Vaccine: Aug 18, 2017 Seasonal Allergies Seasonal Allergies: Yes Past Medical History Surgeries: Yes (THORACENTESIS) Appendectomy, Gallbladder, Hysterectomy, Pancreatic Respiratory: Yes (THORACENTESIS) Cardiac: Yes (SEVERE HYPERLIPIDEMIA; MULTIPLE EPISODES OF HYPERTENSIVE EMERGENCIES/URGENCIES) High Cholesterol, Hypertension Neurological: Yes (MULTIPLE CVA'S AND NOW WITH ESPRESSIVE APHASIA; MS DX EARLY 2018/LATE 2017. 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 Genitourinary: Yes Bladder Infection Gastrointestinal: Yes Chronic Constipation, Pancreatitis Musculoskeletal: Yes (generalized weakness of all extremities) Endocrine: Yes (History of severe electrolyte disturbances) Diabetes, Insulin dep HEENT: No Cancer: No Psychosocial: Yes Anxiety, Depression Integumentary: No Blood Disorders: No Adverse Reaction/Blood Tranf: No Family Medical History Arthritis 19 MOTHER Cardiovascular disease 19 FATHER 19 MOTHER Prostate cancer in father 19 FATHER Heart Disease, CVA Physical Exam Vital Signs Vital Signs - First Documented 09/23/19 21:30 Temp 36.5 Pulse 81 Resp 18 B/P (MAP) 156/88 (110) Pulse Ox 97 O2 Delivery Room Air Capillary Refill : Height, Weight, BMI Height: 5'4.00" Weight: 119lbs. 0.0oz. [id number]; 21.63 BMI Method:Stated General Appearance: No Apparent Distress, WD/WN, Other (FLAT AFFECT, LETHARGIC. ) HEENT: PERRL/EOMI Neck: Normal Inspection Respiratory: Normal Breath Sounds, No Accessory Muscle Use, No Respiratory Distress Cardiovascular: Regular Rate, Rhythm, No Edema, No JVD, No Murmur Gastrointestinal: Non Tender, Soft Neurologic/Psychiatric: Alert, Aphasia (EXPRESSIVE APHASIA, BUT ABLE TO ANSWER YES/NO SEEMINGLY APPROPRIATELY. ), Other (GENERALIZED WEAKNESS, BUT DOES HAVE MOVEMENT IN ALL EXTREMITIES, PT WITH CHRONIC EXPRESSIVE APHASIA. FLAT AFFECT ) Skin: Normal Color, Warm/Dry Focused Exam Lactate Level 09/23/19 20:55: Lactic Acid Level 2.38*H 09/23/19 23:00: Lactic Acid Level 2.56*H Lactic Acid Level Progress/Results/Core Measures Suspected Sepsis SIRS Temperature: Pulse: Respiratory Rate: Laboratory Tests 09/23/19 20:55: White Blood Count 4.7 Blood Pressure / Mean: 09/23/19 20:55: Lactic Acid Level 2.38*H 09/23/19 23:00: Lactic Acid Level 2.56*H Laboratory Tests 09/23/19 20:55: Creatinine 1.44H, INR Comment 1.0, Platelet Count 215, Total Bilirubin 0.3 Results/Orders Lab Results Laboratory Tests Test 09/23/19 20:55 09/23/19 20:56 09/23/19 21:00 09/23/19 21:09 Range/Units White Blood Count 4.7 4.3-11.0 10^3/uL Red Blood Count 4.23 L 4.35-5.85 10^6/uL Hemoglobin 11.9 11.5-16.0 G/DL Hematocrit 36 35-52 % Mean Corpuscular Volume 85 80-99 FL Mean Corpuscular Hemoglobin 28 25-34 PG Mean Corpuscular Hemoglobin Concent 33 32-36 G/DL Red Cell Distribution Width 14.4 10.0-14.5 % Platelet Count 215 130-400 10^3/uL Mean Platelet Volume 11.9 H 7.4-10.4 FL Neutrophils (%) (Auto) 59 42-75 % Lymphocytes (%) (Auto) 30 12-44 % Monocytes (%) (Auto) 10 0-12 % Eosinophils (%) (Auto) 2 0-10 % Basophils (%) (Auto) 1 0-10 % Neutrophils # (Auto) 2.7 1.8-7.8 X 10^3 Lymphocytes # (Auto) 1.4 1.0-4.0 X 10^3 Monocytes # (Auto) 0.4 0.0-1.0 X 10^3 Eosinophils # (Auto) 0.1 0.0-0.3 10^3/uL Basophils # (Auto) 0.0 0.0-0.1 10^3/uL Prothrombin Time 13.3 12.2-14.7 SEC INR Comment 1.0 0.8-1.4 Activated Partial Thromboplast Time 29 24-35 SEC Sodium Level 139 135-145 MMOL/L Potassium Level 4.0 3.6-5.0 MMOL/L Chloride Level 99 98-107 MMOL/L Carbon Dioxide Level 24 21-32 MMOL/L Anion Gap 16 H 5-14 MMOL/L Blood Urea Nitrogen 31 H 7-18 MG/DL Creatinine 1.44 H 0.60-1.30 MG/DL Estimat Glomerular Filtration Rate 36 BUN/Creatinine Ratio 22 Glucose Level 518 *H 70-105 MG/DL Lactic Acid Level 2.38 *H 0.50-2.00 MMOL/L Calcium Level 9.9 8.5-10.1 MG/DL Corrected Calcium 9.9 8.5-10.1 MG/DL Magnesium Level 1.6 1.6-2.4 MG/DL Total Bilirubin 0.3 0.1-1.0 MG/DL Aspartate Amino Transf (AST/SGOT) 11 5-34 U/L Alanine Aminotransferase (ALT/SGPT) 16 0-55 U/L Alkaline Phosphatase 111 40-136 U/L Total Protein 7.2 6.4-8.2 GM/DL Albumin 4.0 3.2-4.5 GM/DL Amylase Level 41 25-125 U/L Lipase 35 8-78 U/L TSH [place] Testing 1.12 0.35-4.94 UIU/ML Glucometer 452 *H 70-110 MG/DL Blood Gas Puncture Site RIGHT RADIAL Blood Gas Patient Temperature 36.5 Arterial Blood pH 7.47 H 7.37-7.43 Arterial Blood Partial Pressure CO2 36 35-45 MMHG Arterial Blood Partial Pressure O2 84 79-93 MMHG Arterial Blood HCO3 26 23-27 MMOL/L Arterial Blood Total CO2 27.3 21.0-31.0 MMOL/L Arterial Blood Oxygen Saturation 98 94-100 % Arterial Blood Base Excess 2.7 H -2.5-2.5 MMOL/L Marty Test POSITIVE Blood Gas Ventilator Setting NO Blood Gas Inspired Oxygen ROOM AIR Urine Color YELLOW Urine Clarity CLEAR Urine pH 6.5 5-9 Urine Specific [place] 1.010 L 1.016-1.022 Urine Protein NEGATIVE NEGATIVE Urine Glucose (UA) 3+ H NEGATIVE Urine Ketones NEGATIVE NEGATIVE Urine Nitrite NEGATIVE NEGATIVE Urine Bilirubin NEGATIVE NEGATIVE Urine Urobilinogen 0.2 < = 1.0 MG/DL Urine Leukocyte Esterase NEGATIVE NEGATIVE Urine RBC (Auto) NEGATIVE NEGATIVE Urine RBC 0-2 /HPF Urine WBC 0-2 /HPF Urine Crystals PRESENT H /LPF Urine Amorphous Sediment FEW ELEAZAR URATES H /LPF Urine Bacteria TRACE /HPF Urine Casts NONE /LPF Urine Mucus NEGATIVE /LPF Urine Culture Indicated NO Test 09/23/19 22:51 09/23/19 23:00 09/24/19 00:33 Range/Units Glucometer 274 H 160 H 70-110 MG/DL Lactic Acid Level 2.56 *H 0.50-2.00 MMOL/L My Orders Orders - ANATCONSUELOA K DO Accucheck Stat ONCE (09/23/19 20:50) Ed Iv/Invasive Line Start (09/23/19 20:50) Monitor-Rhythm Ecg Trace Only (09/23/19 20:50) Amylase (09/23/19 20:50) Cbc With Automated Diff (09/23/19 20:50) Comprehensive Metabolic Panel (09/23/19 20:50) Lactic Acid Analyzer (09/23/19 20:50) Lipase (09/23/19 20:50) Magnesium (09/23/19 20:50) Protime With Inr (09/23/19 20:50) Partial Thromboplastin Time (09/23/19 20:50) Ua Culture If Indicated (09/23/19 20:50) Ed Iv/Invasive Line Start (09/23/19 20:50) Ns Iv 1000 Ml (Sodium Chloride 0.9%) (09/23/19 20:50) Ekg Tracing (09/23/19 20:57) Catheter(Urinary) Insert & Ass 03,15 (09/23/19 20:57) Arterial Blood Gas (09/23/19 21:00) Thyroid Analyzer (09/23/19 20:57) Chest 1 View, Ap/Pa Only (09/23/19 20:57) Insulin (Regular) Human (Humulin R (Per (09/23/19 21:45) Ed Iv/Invasive Line Start (09/23/19 21:39) Ns Iv 1000 Ml (Sodium Chloride 0.9%) (09/23/19 21:39) Accucheck Stat ONCE (09/23/19 22:17) Ed Iv/Invasive Line Start (09/23/19 23:11) Ns Iv 1000 Ml (Sodium Chloride 0.9%) (09/23/19 23:11) Insulin (Regular) Human (Humulin R (Per (09/23/19 23:30) Accucheck Stat ONCE (09/24/19 00:03) Medications Given in ED Vital Signs/I&O 09/24/19 00:00 Intake Total 200 ml Balance 200 ml Capillary Refill : Progress Note : Progress Note UNEVENTFUL ER STAY PT HAD NO COMPLAINTS DURING ER STAY NO EVIDENCE OF INFECTION AND NORMAL WBC PT WAS GIVEN IV FLUIDS AND INSULIN--GLUCOSE DOWN TO 160 PRIOR TO DISMISSAL PT HAS ORDERS AT [facility] FOR SLIDING SCALE INSULIN LENGTHY DISCUSSIONS WITH PT'S WELL PT, ABOUT TEST RESULTS. ECG Initial ECG Impression Date: Sep 23, 2019 Initial ECG Impression Time: 21:24 Initial ECG Rate: 80 Initial ECG Rhythm: Normal Sinus Diagnostic Imaging Comments CXR--NO ACUTE PROCESS, PER RADIOLOGIST REPORT AT 2155 Reviewed: Reviewed by Me Departure Impression Primary Impression: Uncontrolled diabetes mellitus Additional Impression: Insulin dependent diabetes mellitus Disposition: 03 XFER SNF Condition: Improved Departure-Patient Inst. Referrals: DECLAN SANTOS MD (PCP/Family) Primary Care Physician Patient Instructions: Diabetes Type 2 (DC) Add. Discharge Instructions: CONTINUE ALL PREVIOUS ORDERS CHECK BLOOD GLUCOSE 4 TIMES A DAY--BEFORE EACH MEAL AND AT HS, OR EVERY 6 HOURS IF NO FOOD INTAKE. FOLLOW UP WITH DR. SANTOS FOR FURTHER CARE All discharge instructions reviewed with patient and/or family. Voiced understanding. JOE COPPOLA DO Sep 23, 2019 21:03 POS
[2019-09-23 21:07] LABS: BASOPHILS % (AUTO) 1 % (0-10); EOSINOPHILS # (AUTO) 0.1 10^3/uL (0.0-0.3); EOSINOPHILS % (AUTO) 2 % (0-10); HEMATOCRIT 36 % (35-52); HEMOGLOBIN 11.9 G/DL (11.5-16.0); LYMPHOCYTES # (AUTO) 1.4 X 10^3 (1.0-4.0); LYMPHOCYTES % (AUTO) 30 % (12-44); MEAN CORPUSCULAR HEMOGLOBIN 28 PG (25-34); MEAN CORPUSCULAR HGB CONC 33 G/DL (32-36); MEAN CORPUSCULAR VOLUME 85 FL (80-99); MEAN PLATELET VOLUME 11.9 FL (7.4-10.4); MONOCYTES # (AUTO) 0.4 X 10^3 (0.0-1.0); MONOCYTES % (AUTO) 10 % (0-12); NEUTROPHILS # (AUTO) 2.7 X 10^3 (1.8-7.8); NEUTROPHILS % (AUTO) 59 % (42-75); PLATELET COUNT 215 10^3/uL (130-400); RED CELL DISTRIBUTION WIDTH 14.4 % (10.0-14.5); WHITE BLOOD COUNT 4.7 10^3/uL (4.3-11.0)
[2019-09-23 21:15] LABS: BILIRUBIN,URINE NEGATIVE (NEGATIVE); CLARITY,URINE CLEAR; COLOR,URINE YELLOW; GLUCOSE, URINE (UA) 3+ (NEGATIVE); KETONES,URINE NEGATIVE (NEGATIVE); LEUKOCYTE ESTERASE ,URINE NEGATIVE (NEGATIVE); NITRITE,URINE NEGATIVE (NEGATIVE); PH,URINE 6.5 (5-9); PROTEIN,URINE NEGATIVE (NEGATIVE)
[2019-09-23 21:18] LABS: PROTHROMBIN TIME PATIENT 13.3 SEC (12.2-14.7)
[2019-09-23 21:23] LABS: AMORPHOUS SEDIMENT,UR FEW AMOR URATES /LPF; BACTERIA,URINE TRACE /HPF; RBC,URINE 0-2 /HPF; WBC,URINE 0-2 /HPF
[2019-09-23 21:28] LABS: BILIRUBIN,TOTAL 0.3 MG/DL (0.1-1.0); CALCIUM 9.9 MG/DL (8.5-10.1); CREATININE SERUM 1.44 MG/DL (0.60-1.30); MAGNESIUM 1.6 MG/DL (1.6-2.4); TOTAL PROTEIN 7.2 GM/DL (6.4-8.2)
[2019-09-23 21:32] LABS: ABG BASE EXCESS 2.7 MMOL/L (-2.5-2.5); ABG OXYGEN SATURATION 98 % (94-100); ABG PCO2 36 MMHG (35-45); ABG PH 7.47 (7.37-7.43); ABG PO2 84 MMHG (79-93); ABG TCO2 27.3 MMOL/L (21.0-31.0); ALLENS TEST POSITIVE; INSPIRED O2 ROOM AIR; PATIENT TEMP 36.5; VENTILATOR NO
[2019-09-23] MEDS ORDERED: inSUlin (REGULAR) HUMAN 1 UNIT/0.01 ML (CHARGE PER UNIT) IV ONE ×2 (21:45→23:30)
[2019-09-23 21:48] LABS: TSH (THYROID ANALYZER) 1.12 UIU/ML (0.35-4.94)
--- NOTE | 2019-09-23 21:52 | Diagnostic Imaging Report ---
EXAMINATION: Chest radiograph, portable AP view. DATE: 09/23/2019 9:21 PM hours. INDICATION: 68-year-old female, shortness of breath. COMPARISON: August 09, 2019. FINDINGS: Stable overall appearance of the cardiomediastinal silhouette. There is no identified pneumothorax. There is no large pleural effusion. There is no identified focal airspace consolidation. IMPRESSION: No identified acute cardiopulmonary abnormality. Dictated by: Dictated on workstation # [id number]
[2019-09-24 20:10] VITALS: BP 156/88
== END 2019-09-24 00:55 ==
LOC: EDUNIT# 20:47 → ER 20:49
DX: E11.9 Type 2 diabetes mellitus without complications (principal); I10 Essential (primary) hypertension; E78.00 Pure hypercholesterolemia, unspecified; E78.5 Hyperlipidemia, unspecified; G43.909 Migraine, unspecified, not intractable, without status migrainosus; G35 Multiple sclerosis; F41.9 Anxiety disorder, unspecified; F32.9 Major depressive disorder, single episode, unspecified; Z86.73 Personal history of transient ischemic attack (TIA), and cerebral infarction without residual deficits; Z90.49 Acquired absence of other specified parts of digestive tract; Z90.710 Acquired absence of both cervix and uterus; Z88.8 Allergy status to other drugs, medicaments and biological substances; Z88.1 Allergy status to other antibiotic agents; Z88.5 Allergy status to narcotic agent; Z79.82 Long term (current) use of aspirin; Z79.4 Long term (current) use of insulin; Z82.49 Family history of ischemic heart disease and other diseases of the circulatory system; Z80.42 Family history of malignant neoplasm of prostate
CPT/HCPCS: 36415; 51702; 71045; 80053; 81000; 82150; 82805; 82962; 83605; 83690; 83735; 84443; 85025; 85610; 85730; 93005; 93041; 96361; 96374; 96376

== ENCOUNTER 2020-09-16 11:14 | Outpatient (RCR) | payer MEDICARE ==
[~2020-09-16 11:14] MED LIST changes: +AMLO-250 PO; +AMLO-251 PO; -AMLO10TA7 PO; -AMLO5TAB9 PO; +ASPI-1238 PO; -ASPI-983 PO; -CETI10TA20 PO; +CETI10TA49 PO; +CLN.1T PO; +CLN.2T PO; -CLON0.1T PO; -CLON0.2T PO; -CLON0.5T13 PO; +CLON0.5T4 PO; +FLUO20CA46 PO; -METO-370 PO; -METO-395 PO; +METO50TA7 PO; +MTP100TCR PO; -ONDA8TAB12 PO; +ONDA8TAB15 PO; -OXYB10TA PO; +OXYB10TA29 PO
== END 2020-10-14 | disposition home or self-care (01) ==
DX: I63.89 Other cerebral infarction (principal); E61.2 Magnesium deficiency; E11.9 Type 2 diabetes mellitus without complications; R53.1 Weakness; B02.9 Zoster without complications; B26 Mumps; E03.9 Hypothyroidism, unspecified; E78.5 Hyperlipidemia, unspecified; E87.1 Hypo-osmolality and hyponatremia; E87.6 Hypokalemia; D51.3 Other dietary vitamin B12 deficiency anemia; D53.1 Other megaloblastic anemias, not elsewhere classified; F41.1 Generalized anxiety disorder; G60.9 Hereditary and idiopathic neuropathy, unspecified; H60.399 Other infective otitis externa, unspecified ear; H61.20 Impacted cerumen, unspecified ear; I10 Essential (primary) hypertension; I65.29 Occlusion and stenosis of unspecified carotid artery; J30.9 Allergic rhinitis, unspecified; J40 Bronchitis, not specified as acute or chronic; K21.9 Gastro-esophageal reflux disease without esophagitis; K58.9 Irritable bowel syndrome, unspecified; K86.1 Other chronic pancreatitis; Z79.4 Long term (current) use of insulin

== ENCOUNTER 2021-04-28 13:01 | Outpatient (RCR) | payer MEDICARE ==
[~2021-04-28 13:01] MED LIST changes: -GEMF600T8 PO; +GEMF600T88 PO; +GLBR5T PO; +NF-LOVAZAC PO; -OMEG1CAP PO; -OXYC-471 PO; +OXYC1TAB11 PO
== END 2021-06-03 | disposition home or self-care (01) ==
DX: M62.81 Muscle weakness (generalized) (principal); R26.9 Unspecified abnormalities of gait and mobility